=== PATIENT | female | born 1990 | race Caucasian/White ===

== ENCOUNTER 2023-04-18 20:42 | Outpatient (REF) | payer OTHER, SELFPAY ==
[2023-04-24 12:12] LABS: Age Gdln ACOG Testing Note (.); HPV Aptima Negative (Negative); IGP, Aptima HPV, rfx 16/18,45 Note (.)
== END 2023-04-18 20:43 | disposition home or self-care (01) ==
LOC: LAB 20:42
PROVIDERS: Visit Provider Obstetrics & Gynecology
DX: Z12.4 Encounter for screening for malignant neoplasm of cervix (principal)
CPT/HCPCS: 87624; G0145

== ENCOUNTER 2023-06-09 15:00 | Emergency (ER) | payer OTHER, SELFPAY ==
[2023-06-09 15:02] VITALS: BP 150/94; PULSE 102; RESP 14; TEMP 36.8; O2SAT 99; BMI 41.5
--- NOTE | 2023-06-09 15:08 | XR_ITS ---
[facility] [id number] Patient Name: YANETH BROWNLEE MRN: [id number] date: 1990 Sex: F Assigned Patient Location: ER Current Patient Location: Accession/Order Number: [id number] Exam Date: 06/09/2023 15:18 Report Date: 06/09/2023 16:45 At the request of: KALIE LICEA Procedure: XR foot RT min 3V STUDY: XR foot RT min 3V, [id number] HISTORY: pain COMPARISON: None FINDINGS: No acute fracture, dislocation, or suspicious osseous lesion. No significant degenerative changes. Small plantar calcaneal spur and mild Achilles insertional enthesopathy. XR/XR foot RT min 3V IMPRESSION: No acute osseous abnormality. Electronically authenticated by: JOY AMBROSE Date: 06/09/2023 16:45
--- NOTE | 2023-06-09 15:08 | PC.NURSE ---
patient presents to ED because she states around 9am she was walking down stairs and tripped on a kids toy. patient states she heard a pop sensation and now is having pain to bottom of right foot that radiates to top of foot. ice pack applied. denies ankle pain. patient ambulated back to room.
[2023-06-09] MEDS: IBUPROFEN 400 MG TABLET 800 MG PO (15:26)
--- NOTE | 2023-06-09 16:08 | ED.LOWEXI1 ---
HPI - Extremity Injury (Lower) General Chief Complaint: Extremity Injury, Lower Stated Complaint: Lower extremity injury, right foot Time Seen by Provider: 06/09/23 15:12 Source: patient Mode of arrival: walk-in History of Present Illness HPI Narrative: as patient was walking down a set of stairs she stepped on a toy causing her to twist her right ankle and foot. She caught herself before falling to the floor but she felt a pop in the mid right foot and developed pain there. This occurred around 930am this morning. She continues to have pain along the mid foot. She is able to ambulate with most of the pressure on the right heel. Nothing taken for the pain. Related Data Allergies Allergy/AdvReac Type Severity Reaction Status Date / Time No Known Drug Allergies Allergy Verified 06/09/23 15:05 Exam Narrative Exam Narrative: Nurses note and vital signs reviewed and patient is not hypoxic afebrile General: The patient appears well and in no apparent distress. Patient is resting comfortably on cart. GCS = 15. Skin: Warm, dry, no pallor noted. ENT: no facial injury Cardiovascular: normal peripheral perfusion Respiratory: Patient is in no distress, no accessory muscle use, no audible wheezing Musculoskeletal: bony and soft tissue tenderness along the mid right foot. no right foot swelling. Able to wiggle the toes of the right foot. No tenderness right heel. 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 Psychiatric: Cooperative Constitutional Vital Signs, click to edit/add: Last Vital Signs Temp 98.3 F 06/09/23 15:02 Pulse 102 H 06/09/23 15:02 Resp 14 06/09/23 15:02 BP 150/94 H 06/09/23 15:02 Pulse Ox 99 06/09/23 15:02 O2 Del Method Room Air 06/09/23 15:02 Course Vital Signs Vital signs: Vital Signs Temperature 98.3 F 06/09/23 15:02 Pulse Rate 102 H 06/09/23 15:02 Respiratory Rate 14 06/09/23 15:02 Blood Pressure 150/94 H 06/09/23 15:02 Pulse Oximetry 99 06/09/23 15:02 Oxygen Delivery Method Room Air 06/09/23 15:02 Temperature 98.3 F 06/09/23 15:02 Pulse Rate 102 H 06/09/23 15:02 Respiratory Rate 14 06/09/23 15:02 Blood Pressure 150/94 H 06/09/23 15:02 Pulse Oximetry 99 06/09/23 15:02 Oxygen Delivery Method Room Air 06/09/23 15:02 MDM - Extremity Injury (Lower) MDM Narrative Medical decision making narrative: x-rays of the right foot do not reveal acute fracture. Patient informed of result. ED nurse applied an fiorella wrap to the patient's right foot and a post-op shoe to the right foot. She was neurovascularly intact distally after. She was instructed to take tylenol and motrin for pain. Imaging Data xr foot: My impression: nad Discharge Plan Discharge Chief Complaint: Extremity Injury, Lower Clinical Impression: Right foot sprain Patient Disposition: Home, Self-Care Time of Disposition Decision: 16:15 Instructions: Foot Sprain (ED) Stand Alone Forms: Portal Instructions Referrals: Chery Aranda MD [Primary Care Provider] - 1 week
[2023-06-09 16:23] VITALS: BP 130/86; PULSE 95; O2SAT 98
== END 2023-06-09 16:25 | disposition home or self-care (01) ==
PROVIDERS: Emergency Provider Emergency Medicine; PCP Family Medicine
DX: S93.601A Unspecified sprain of right foot, initial encounter (principal); X50.1XXA Overexertion from prolonged static or awkward postures, initial encounter
CPT/HCPCS: 73630; 99282

== ENCOUNTER 2023-07-26 10:38 | Outpatient (OUT) | payer OTHER, SELFPAY ==
--- NOTE | 2023-07-26 10:40 | US_ITS ---
[address] [address] Patient Name: YANETH BROWNLEE MRN: [id number] date: 1990 Sex: F Assigned Patient Location: US Current Patient Location: US Accession/Order Number: [id number] Exam Date: 07/26/2023 10:41 Report Date: 07/26/2023 15:36 At the request of: DINH MESSER Procedure: US OB transvaginal EXAMINATION: US OB transvaginal HISTORY: MISSED MENSES COMPARISON: No relevant comparison available. FINDINGS: GESTATIONAL SAC: Present and normal appearing. YOLK SAC: Absent POLE: Present and normal appearing. CARDIAC: Present. UTERUS: Normal size and appearance. OVARIES: Right: Not seen. Left: Not seen. CERVIX: 3.6 cm in length and closed. CUL-DE-SAC: Normal. OTHER: None. AGE BY LMP: 10 weeks 1 day VALERIA BY LMP: 02/20/2024 AGE BY US CRL: 9 weeks 4 days VALERIA BY US CRL: 02/24/2024 US/US OB transvaginal IMPRESSION: 1. Single live intrauterine . Electronically authenticated by: FOUZIA CALERO Date: 07/26/2023 15:36
== END 2023-07-26 10:39 | disposition home or self-care (01) ==
LOC: US 10:38
PROVIDERS: PCP Family Medicine; Visit Provider Obstetrics & Gynecology
DX: Z34.91 Encounter for supervision of normal pregnancy, unspecified, first trimester (principal); N92.6 Irregular menstruation, unspecified
CPT/HCPCS: 76817

== ENCOUNTER 2023-07-26 16:30 | Outpatient (OUT) | payer OTHER, SELFPAY ==
[2023-07-26 17:10] LABS: Basophils Percent Auto 0.5 % (0.2-2.0); Eosinophils Absolute Auto 0.1 10^3/uL (0.0-0.7); Eosinophils Percent Auto 1.8 % (0.9-7.0); Hematocrit 34.8 % (36.0-48.0); Hemoglobin 11.3 g/dL (12.0-16.0); Immature Granulocytes Abs Auto 0.01 10^3/uL (0.00-0.03); Immature Granulocytes Pct Auto 0.1 % (0.0-0.5); Lymphocytes Percent Auto 25.4 % (20.5-60.0); Mean Corpuscular HGB Conc 32.5 g/dL (29.9-35.2); Mean Corpuscular Hemoglobin 27.1 pg (26.7-34.0); Mean Corpuscular Volume 83.5 fL (81.0-99.0); Mean Platelet Volume 10.5 fL (9.5-13.5); Monocytes Absolute Auto 0.5 10^3/uL (0.3-0.8); Neutrophils Absolute Auto 5.1 10^3/uL (1.4-6.5); Neutrophils Percent Auto 66.2 % (43.0-75.0); Platelet Count 292 10^3/uL (150-450); Red Blood Count 4.17 10^6/uL (4.20-5.40); White Blood Count 7.8 10^3/uL (4.0-11.0)
[2023-07-26 17:19] LABS: Estimated Average Glucose 97 mg/dL
[2023-07-26 17:46] LABS: Thyroid Stimulating Hormone 1.987 uIU/mL (0.358-3.740)
[2023-07-28 07:10] LABS: Rapid Plasma Reagin, Quant Non Reactive titer (NonRea<1:1)
[2023-07-28 08:11] LABS: HBsAg Screen Negative (Negative)
[2023-07-28 09:12] LABS: Rubella Antibodies, IgG 5.26 index (Immune >0.99)
[2023-07-28 11:13] LABS: HCV Ab Non Reactive (Non Reactive)
[2023-07-29 16:06] LABS: HIV Antigen NON-REACTIVE (NONREACTIVE)
== END 2023-07-26 16:31 | disposition home or self-care (01) ==
LOC: LAB 16:30
PROVIDERS: PCP Family Medicine; Visit Provider Obstetrics & Gynecology
DX: Z34.81 Encounter for supervision of other normal pregnancy, first trimester (principal); N92.6 Irregular menstruation, unspecified
CPT/HCPCS: 36415; 76817; 83036; 84443; 85025; 86592; 86762; 86803; 86850; 86900; 86901; 87086; 87340; 87389

== ENCOUNTER 2023-10-03 10:03 | Outpatient (OUT) | payer OTHER, SELFPAY ==
--- NOTE | 2023-10-03 10:06 | US_ITS ---
[address] [address] Patient Name: YANETH BROWNLEE MRN: [id number] date: 1990 Sex: F Assigned Patient Location: US Current Patient Location: US Accession/Order Number: [id number] Exam Date: 10/03/2023 10:07 Report Date: 10/03/2023 11:04 At the request of: DINH MESSER Procedure: US OB anatomy EXAMINATION: US OB anatomy, US OB cervical length HISTORY: Screening,, for anatomic survey COMPARISON: 07/26/2023 TECHNIQUE: Transabdominal sonographic examination was performed for obstetrical and evaluation. FINDINGS: Number: 1 Heart Rate: 162.7 bpm H.B. /min Amniotic Fluid Volume: Subjectively normal position: Cephalic presentation, longitudinal lie Placental Location: POSTERIOR , grade 0. The placenta completely covers the internal cervical os Cervix Length: 5.7 cm , closed Normal anatomy: Lateral ventricles, cerebellum, posterior fossa, four-chamber heart, RVOT, LVOT, diaphragm, stomach, kidneys, umbilical arteries, three-vessel cord, spine, extremities Suboptimal visualization: Orbits Nonvisualization: Nose, lips, abdominal cord insertion, bladder BIOMETRY: BPD: 4.0 cm 18 weeks 0 days <3% HC: 15.5 cm 18 weeks 3 days, <3% AC: 12.5 cm 18 weeks 1 days, 3.6% FL: 2.6 cm 17 weeks 6 days ,<3% EFW:220.2 grams; 8 oz, <3% FL/AC: 20.6 FL/BPD: 64.9 HC/AC: 1.2 GESTATIONAL AGE: Age by EDC: 20 weeks 0 days Age by current US: 18 weeks 1 days VALERIA by current US: 11/06/2024 VALERIA by EDC: 02/20/2024 US/US OB anatomy IMPRESSION: Intrauterine growth retardation with estimated weight less than the 3rd percentile Suboptimal and nonvisualization as detailed above Complete placenta previa *Reference: [employer] Practice Guideline for the performance of Obstetric Ultrasound Examinations, May 26, 2007. Electronically authenticated by: BRANDI ANN Date: 10/03/2023 11:04
--- NOTE | 2023-10-03 10:07 | US_ITS ---
[address] [address] Patient Name: YANETH BROWNLEE MRN: [id number] date: 1990 Sex: F Assigned Patient Location: US Current Patient Location: US Accession/Order Number: [id number] Exam Date: 10/03/2023 10:07 Report Date: 10/03/2023 11:04 At the request of: DINH MESSER Procedure: US OB cervical length EXAMINATION: US OB anatomy, US OB cervical length HISTORY: Screening,, for anatomic survey COMPARISON: 07/26/2023 TECHNIQUE: Transabdominal sonographic examination was performed for obstetrical and evaluation. FINDINGS: Number: 1 Heart Rate: 162.7 bpm H.B. /min Amniotic Fluid Volume: Subjectively normal position: Cephalic presentation, longitudinal lie Placental Location: POSTERIOR , grade 0. The placenta completely covers the internal cervical os Cervix Length: 5.7 cm , closed Normal anatomy: Lateral ventricles, cerebellum, posterior fossa, four-chamber heart, RVOT, LVOT, diaphragm, stomach, kidneys, umbilical arteries, three-vessel cord, spine, extremities Suboptimal visualization: Orbits Nonvisualization: Nose, lips, abdominal cord insertion, bladder BIOMETRY: BPD: 4.0 cm 18 weeks 0 days <3% HC: 15.5 cm 18 weeks 3 days, <3% AC: 12.5 cm 18 weeks 1 days, 3.6% FL: 2.6 cm 17 weeks 6 days ,<3% EFW:220.2 grams; 8 oz, <3% FL/AC: 20.6 FL/BPD: 64.9 HC/AC: 1.2 GESTATIONAL AGE: Age by EDC: 20 weeks 0 days Age by current US: 18 weeks 1 days VALERIA by current US: 11/06/2024 VALERIA by EDC: 02/20/2024 US/US OB cervical length IMPRESSION: Intrauterine growth retardation with estimated weight less than the 3rd percentile Suboptimal and nonvisualization as detailed above Complete placenta previa *Reference: [employer] Practice Guideline for the performance of Obstetric Ultrasound Examinations, May 26, 2007. Electronically authenticated by: BRANDI ANN Date: 10/03/2023 11:04
[2023-10-05 01:06] LABS: AFP Value 101.7 ng/mL (.); Gestat. Age Based On As provided (.); Insulin Dep Diabetes No (.); Maternal Age At EDD 33.8 yr (.); OSBR Risk 1 IN 370 (.); Results Report (.)
== END 2023-10-03 10:04 | disposition home or self-care (01) ==
LOC: US 10:03
PROVIDERS: PCP Family Medicine; Visit Provider Obstetrics & Gynecology
DX: Z36.89 Encounter for other specified antenatal screening (principal); O36.5920 Maternal care for other known or suspected poor fetal growth, second trimester, not applicable or unspecified; Z3A.18 18 weeks gestation of pregnancy; O44.02 Complete placenta previa NOS or without hemorrhage, second trimester
CPT/HCPCS: 36415; 76805; 76817; 82105

== ENCOUNTER 2023-11-19 06:53 | Outpatient (OUT) | payer OTHER, SELFPAY ==
--- OUTSIDE RECORDS SUMMARY | 2023-11-19 06:56 | XMS_ITS | CCD ---
Author Organization [facility] Care Team Providers Care Position Classification Specialist Name Role Phone WEST, DR BRANDI Quinonez Consulting Unavailable AYDE, DR TAO Admitting Unavailable AYDE, DR TAO Attending Unavailable DOE, MARSHALL Primary Care Unavailable AYDE, DR TAO Consulting Unavailable AYDE, DR TAO Consulting Unavailable YADE, DR TAO Attending Unavailable AYDE, DR TAO Admitting Unavailable REQUEST, DR NONE LISTED Primary Care Unavaila ble AYDE, DR TAO Consulting Unavailable AYDE, DR TAO Admitting Unavailable AYDE, DR TAO Attending Unavailable REQUEST, DR NONE LISTED Primary Care Unavaila ble ZIEBER, DR FOUZIA Schilling Consulting Unavailable AYDE, DR TAO Consulting Unavailable AYDE, DR TAO Attending Unavailable AYDE, DR TAO Admitting Unavailable REQUEST, DR NONE LISTED Primary Care Unavaila ble ZIEBER, DR FOUZIA Schilling Consulting Unavailable AYDE, DR TAO Consulting Unavailable AYDE, DR TAO Attending Unavailable AYDE, DR TAO Admitting Unavailable REQUEST, DR EMERSON LISTED Primary Care Unavaila ble AYDE, DR TAO Consulting Unavailable AYDE, DR TAO Attending Unavailable AYDE, DR TAO Admitting Unavailable REQUEST, DR NONE LISTED Primary Care Unavaila ble MAY, YANET DUNBAR Consulting Unava ilable AYDE, DR TAO Procedure Practitioner Unavailab le AYDE, DR TAO Consulting Unavailable AYDE, DR TAO Attending Unavailable AYDE, DR TAO Admitting Unavailable REQUEST, DR NONE LISTED Primary Care Unavaila ble ZIEBER, DR FOUZIA Schilling Consulting Unavailable AYDE, DR TAO Consulting Unavailable AYDE, DR TAO Admitting Unavailable AYDE, DR TAO Attending Unavailable REQUEST, DR NONE LISTED Primary Care Unavaila ble AYDE, DR TAO Consulting Unavailable AYDE, DR TAO Attending Unavailable REQUEST, DR NONE LISTED Primary Care Unavaila ble AYDE, DR TAO Admitting Unavailable ZIEBER, DR FOUZIA Schilling Consulting Unavailable AYDE, DR TAO Consulting Unavailable AYDE, DR TAO Attending Unavailable AYDE, DR TAO Admitting Unavailable REQUEST, DR NONE LISTED Primary Care Unavaila ble AYDE, DR TAO Consulting Unavailable AYDE, DR TAO Attending Unavailable REQUEST, NONE LISTED Primary Care Unavaila ble AYDE, DR TAO Admitting Unavailable REQUEST, DR NONE LISTED Primary Care Unavaila ble WEST, DR BRANDI Quinonez Consulting Unavailable AYDE, DR TAO Attending Unavailable AYDE, DR TAO Admitting Unavailable AYDE, DR TAO Consulting Unavailable AYDE, DR TAO Consulting Unavailable JENNIFER, CT Admitting Unavailable JENNIFER, CT Attending Unavailable REQUEST, DR NONE LISTED Primary Care Unavaila ble ZIEBER, DR FOUZIA Schilling Consulting Unavailable KARASIK, DR DODSON Admitting Unavailable KARASIK, DR DODSON Consulting Unavailable KARASIK, DR DODSON Attending Unavailable REQUEST, DR NONE LISTED Primary Care Unavaila ble WEST, DR BRANDI Quinonez Consulting Unavailable AYDE, DR TAO Consulting Unavailable AYDE, DR TAO Admitting Unavailable AYDE, DR TAO Attending Unavailable REQUEST, DR NONE LISTED Primary Care Unavaila ble AYDE, DR TAO Consulting Unavailable REQUEST, NONE LISTED Primary Care Unavaila ble AYDE, DR TAO Admitting Unavailable AYDE, DR TAO Attending Unavailable AYDE, DR TAO Consulting Unavailable AYDE, DR TAO Attending Unavailable AYDE, DR TAO Admitting Unavailable REQUEST, DR NONE LISTED Primary Care Unavaila ble AYDE, DR TAO Consulting Unavailable AYDE, DR TAO Attending Unavailable AYDE, DR TAO Admitting Unavailable REQUEST, NONE LISTED Primary Care Unavaila ble ZIEBER, DR FOUZIA Schilling Consulting Unavailable AYDE, DR TAO Attending Unavailable REQUEST, NONE LISTED Primary Care Unavaila ble AYDE, DR TAO Admitting Unavailable Chery Aranda Unavailable Sea ENGLISH COMPOSITION TEACHER-INTERPRETER DEAF, Pola Mota Primary Care Provider DINH MARROQUIN Attending Unavailable GENEFRIEDA JOYNER Attending Unavailable AYDE, DINH Attending Unavailable AYDE, DINH Attending Unavailable PERNI, COLIN C Referring Unavailable DINH MARROQUIN Primary Care Unavailable Medications Current Medications Medication Drug Class(es) Dates Sig (Normalized) Sig (Original) ferrous sulfate 325 mg oral tablet (1 source) take 1 tablet by mouth once daily at breakfast ferrous sulfate 325 (65 FE) mg tablet Take 325 mg by mouth daily with breakfast. 0 Active magnesium oxide 400 mg oral tablet (1 source) take 1 tablet by mouth twice daily magnesium oxide (MAG-OX) 400 mg tablet Take 400 mg by mouth 2 (two) times a day. 0 Active montelukast 10 mg oral tablet (4 sources) Leukotriene Receptor Antagonist take 1 tablet by mouth every twenty-four hours Singulair 10 MG 1 tablet Orally Once a day for 30 days Active ondansetron 4 mg disintegrating oral tablet (1 source) Serotonin-3 Receptor Antagonist take 1 tablet by mouth every eight hours as needed for nausea and vomiting ondansetron ODT (ZOFRAN-ODT) 4 mg disintegrating tablet Dissolve 4 mg on tongue every 8 (eight) hours as needed for nausea or vomiting. 0 Active phentermine hydrochloride 37.5 mg oral capsule (3 sources) Sympathomimetic Amine Anorectic Start: 06-14-2023 take 1 capsule by mouth every twenty-four hours Phentermine HCl 37.5 MG 1 capsule Orally Once a day for 30 days May, Active Start: 05-16-2023 take 1 capsule by [facility] every twenty-four hours Phentermine HCl 37.5 MG 1 capsule Orally Once a day for 30 days Apr, Active Start: 04-15-2023 take 1 capsule by [facility] every twenty-four hours Phentermine HCl 37.5 MG 1 capsule Orally Once a day for 30 days Mar, Active [id number] ac id 29 mg iron- 1 mg tablet,chewable (1 source) vit37-i hebert-folic acid 29 mg iron- 1 mg tablet,chewable Chew 1 tablet and swallow daily. 0 Active Problems Active Problems Problem Classification Problem Date Documented Da te Episodic/Chronic Deficiency and other anemia (1 source) Anemia, unspecified; Translations: [ANEMIA UNSPECIFIED] Onset: 08-03-2022 Episodic Menstrual disorders (4 sources) Irregular menstruation, unspecified; Translations: [IRREGULAR MENSTRUATION UNSPECIFIED] Onset: 01-12-2022 Chronic Other complications of ; puerperium affecting management of mother (1 source) Obesity complicating childbirth; Translations: [OBESITY COMPLICATING CHILDBIRTH] Onset: 08-03-2022 Chronic Other complications of ; puerperium affecting management of mother (1 source) Anemia complicating childbirth; Translations: [ANEMIA COMPLICATING CHILDBIRTH] Onset: 08-03-2022 Chronic Other complications of (1 source) Maternal obesity complicating , childbirth and the puerperium, antepartum; Translations: [Obesity complicating , second trimester] Onset: 09-15-2019 09-15-2019 Chronic Other complications of (5 sources) Maternal care for excessive growth, third trimester, not applicable or unspecified; Translations: [MAT CARE EXCSS FTL GRTH 3RD TRI UNS] Onset: 06-13-2022 Episodic Other complications of (4 sources) Bariatric surgery status complicating , third trimester; Translations: [BARIATRIC SURG STS COMP PG 3RD TRI] Onset: 07-05-2022 Episodic Other complications of (2 sources) Supervision of other high risk pregnancies, second trimester; Translations: [Supervision of other high risk pregnancies, second trimester] Onset: 10-17-2023 Episodic Other nutritional; endocrine; and metabolic disorders (1 source) Obesity, unspecified; Translations: [OBESITY UNSPECIFIED] Onset: 08-03-2022 Chronic Other nutritional; endocrine; and metabolic disorders (4 sources) Severe obesity; Translations: [Morbid (severe) obesity due to excess calories] Chronic Other nutritional; endocrine; and metabolic disorders (4 sources) Body mass index 40+ - severely obese; Translations: [Body mass index (BMI) 40.0-44.9, adult] Chronic Other nutritional; endocrine; and metabolic disorders (2 sources) Morbid (severe) obesity due to excess calories Chronic Other nutritional; endocrine; and metabolic disorders (2 sources) Body mass index (BMI) 40.0-44.9, adult Chronic Other nutritional; endocrine; and metabolic disorders (2 sources) Body mass index 30+ - obesity; Translations: [Body mass index (BMI) 39.0-39.9, adult] Chronic Other nutritional; endocrine; and metabolic disorders (2 sources) Obesity caused by energy imbalance; Translations: [Other obesity due to excess calories] Chronic Other nutritional; endocrine; and metabolic disorders (1 source) Other obesity due to excess calories Chronic Other nutritional; endocrine; and metabolic disorders (1 source) Body mass index (BMI) 39.0-39.9, adult Chronic Other and delivery including normal (11 sources) Encounter for routine follow-up; Translations: [Single live ] Onset: 01-03-2022 Episodic Other screening for suspected conditions (not mental disorders or infectious disease) (20 sources) Encounter for other screening follow-up; Translations: [Encounter for screening for diabetes mellitus] Onset: 01-12-2022 Episodic Other upper respiratory disease (4 sources) Allergic rhinitis due to animal hair and dander; Translations: [Allergic rhinitis due to animal (cat) (dog) hair and dander] Chronic Other upper respiratory disease (1 source) Allergic rhinitis due to animal (cat) (dog) hair and dander Chronic Polyhydramnios and other problems of amniotic cavity (5 sources) Oligohydramnios, third trimester, not applicable or unspecified; Translations: [OLIGOHYDRAMNIOS THIRD TRI NA/UNS] Onset: 07-12-2022 Episodic Residual codes; unclassified (1 source) 39 weeks gestation of ; Translations: [39 WEEKS GESTATION OF ] Onset: 08-03-2022 Episodic Residual codes; unclassified (1 source) Acquired absence of other specified parts of digestive tract; Translations: [ACQ ABSENCE OTH PART DIGESTV TRACT] Onset: 08-03-2022 Episodic Residual codes; unclassified (1 source) 36 weeks gestation of ; Translations: [36 WEEKS GESTATION OF ] Onset: 07-14-2022 Episodic Residual codes; unclassified (1 source) 35 weeks gestation of ; Translations: [35 WEEKS GESTATION OF ] Onset: 07-06-2022 Episodic Residual codes; unclassified (1 source) 32 weeks gestation of ; Translations: [32 WEEKS GESTATION OF ] Onset: 06-13-2022 Episodic Residual codes; unclassified (2 sources) Family history of other specified conditions; Translations: [Family history of other specified conditions] Onset: 10-17-2023 Episodic Unclassified (1 source) CONTACT W/AND (SUSP) EXPOS COVID-19; Translations: [CONTACT W/AND (SUSP) EXPOS COVID-19] Onset: 08-03-2022 Past or Other Problems Problem Classification Problem Date Documented Date Episodic/Chronic Diabetes mellitus without complication (8 sources) Other abnormal glucose; Translations: [Hyperglycemia, unspecified] Onset: 02-14-2022 Episodic Hemorrhage during ; abruptio placenta; placenta previa (2 sources) Low lying placenta NOS or without hemorrhage, unspecified trimester; Translations: [Low lying placenta] Onset: 09-15-2019 09-15-2019 Episodic Immunizations and screening for infectious disease (3 sources) Encounter for screening for human papillomavirus (HPV); Translations: [Encounter for screening for infections with a predominantly sexual mode of transmission] Onset: 01-18-2022 Episodic Other complications of (4 sources) Abnormal ultrasonic finding on screening of mother; Translations: [ABNORM US SCREEN MOTHER] Onset: 04-17-2022 Episodic Other complications of (1 source) Recurrent miscarriage; Translations: [ care for patient with recurrent loss, unspecified trimester] Onset: 09-15-2019 09-15-2019 Episodic Other female genital disorders (1 source) Other specified noninflammatory disorders of vagina; Translations: [OTH SPEC NONINFLAMMATORY D/O VAGINA] Onset: 04-17-2022 Episodic Other nervous system disorders (1 source) H/O: migraine; Translations: [Personal history of other diseases of the nervous system and sense organs] Onset: 09-15-2019 09-15-2019 Episodic Residual codes; unclassified (1 source) 8 weeks gestation of ; Translations: [8 WEEKS GESTATION OF ] Onset: 01-03-2022 Episodic Results Test Name Value Interpretation Reference Range Facility Tatum Roberson 10-26-2023 Tatum tp. B1 <1:10 Normal <1:10 [facility] Comment on above: Performed By: #### C MVG, LUPPRO, AT3A, PROCAC, PROSAC, CMVM, CMIS, TOXOG, TOXOM, HOCYS #### [employer] [facility] [place] [address] Insurance And Benefits Clerk: Tanvir Macias MD #### APTMUT, AF5MUT, AMTHFR, ACOXA9, APARVP, ACOXAB #### [address] [phone] Insurance And Benefits Clerk: MD Tatum Santoyo B2 1:20 Normal <1:10 [facility] Comment on above: Performed By: #### C MVG, LUPPRO, AT3A, PROCAC, PROSAC, CMVM, CMIS, TOXOG, TOXOM, HOCYS #### [facility] [address] [place] [id number] Insurance And Benefits Clerk: Tanvir Macias MD #### APTMUT, AF5MUT, AMTHFR, ACOXA9, APARVP, ACOXAB #### [facility] [address] [place], [place] [phone] Insurance And Benefits Clerk: MD Tatum Santoyo B3 1:10 Normal <1:10 [facility] Comment on above: Performed By: #### C MVG, LUPPRO, AT3A, PROCAC, PROSAC, CMVM, CMIS, TOXOG, TOXOM, HOCYS #### [facility] [address] [place] [id number] Insurance And Benefits Clerk: Tanvir Macias MD #### APTMUT, AF5MUT, AMTHFR, ACOXA9, APARVP, ACOXAB #### [facility] [address] [place], [place] [phone] Insurance And Benefits Clerk: MD Tatum Santoyo B4 1:320 Abnormal <1:10 [facility] Comment on above: Performed By: #### C MVG, LUPPRO, AT3A, PROCAC, PROSAC, CMVM, CMIS, TOXOG, TOXOM, HOCYS #### [facility] [address] [place] [id number] Insurance And Benefits Clerk: Tanvir Macias MD #### APTMUT, AF5MUT, AMTHFR, ACOXA9, APARVP, ACOXAB #### [facility] [address] [place], [place] [phone] Insurance And Benefits Clerk: MD Tatum Santoyo. B5 <1:10 Normal <1:10 [facility] Comment on above: Performed By: #### C MVG, LUPPRO, AT3A, PROCAC, PROSAC, CMVM, CMIS, TOXOG, TOXOM, HOCYS #### [address] [phone] Insurance And Benefits Clerk: Tanvir Macias MD #### APTMUT, AF5MUT, AMTHFR, ACOXA9, APARVP, ACOXAB #### [address] [phone] Insurance And Benefits Clerk: MD Tatum Santoyo. B6 <1:10 Normal <1:10 [facility] Comment on above: Result Comment: (NOT E) INTERPRETIVE INFORMATION: Coxsackie B Virus Single positive antibody titers of greater than or equal to 1:80 may indicate past or current infection. Sero- conversion or an increase in titers between acute and convalescent sera of at least fourfold is considered strong evidence of current or recent infection. Performed By: [facility] [address] [place] [id number] Executive Sales Assistant: Nadeem Mcarthur MD, PhD CLIA Number: [id number] Performed By: #### C MVG, LUPPRO, AT3A, PROCAC, PROSAC, CMVM, CMIS, TOXOG, TOXOM, HOCYS #### [address] [phone] Insurance And Benefits Clerk: Tanvir Macias MD #### APTMUT, AF5MUT, AMTHFR, ACOXA9, APARVP, ACOXAB #### [facility] [address] [place] [phone] Insurance And Benefits Clerk: Enrique Arthur MD Factor V Mutationon 10-22-19 24 F 5 SPECIMEN Whole Blood Normal [facility] Comment on above: Performed By: #### C MVG, LUPPRO, AT3A, PROCAC, PROSAC, CMVM, CMIS, TOXOG, TOXOM, HOCYS #### [facility] [address] [place] [address] Insurance And Benefits Clerk: Tanvir Macias MD #### APTMUT, AF5MUT, AMTHFR, ACOXA9, APARVP, ACOXAB #### [facility] [address] [place] [address] Insurance And Benefits Clerk: Enrique Arthur MD FACTOR 5 MUTATION Negative Normal [facility] Comment on above: Result Comment: (NOT E) Indication for testing: Assess genetic risk for thrombosis. NEGATIVE: The factor V Leiden variant, c.1601G>A; p.Ihl259Kkz, was not detected. This does not exclude a genetic cause for thrombophilia. If this individual has had a previous venous thromboembolism, this negative result is unlikely to significantly reduce the risk for recurrence; thus, future clinical management to reduce recurrence should not be altered. This result has been reviewed and approved by Ari Quintana, Ph.D. BACKGROUND INFORMATION: Factor V Leiden (F5) R506Q Mutation CHARACTERISTICS: Venous thromboembolism (VTE) is multifactorial caused by a combination of genetic and environmental factors. The Factor V Leiden (FVL) variant is the most common cause of inherited VTEs, accounting for over 90 percent of activated protein C (APC) resistance. Because the FVL variant eliminates the APC cleavage site, factor V is inactivated slower, thus persisting longer in blood circulation, leading to more thrombin production. Other genetic risk factors for VTE include, male sex and variants in antithrombin, protein C, protein S, or factor XIII. Non-genetic risk factors include, age, smoking, prolonged immobilization, malignant neoplasms, surgery, , oral contraceptives, estrogen replacement therapy, tamoxifen and raloxifene therapy. INCIDENCE OF FACTOR V LEIDEN VARIANT: Approximately 5 percent of Caucasians, 2 percent of Hispanics, 1 percent of Americans and 0.5 percent of Asians are heterozygous; homozygosity occurs in 1 in 1500 Caucasians. INHERITANCE: Semi-dominant; both heterozygotes and homozygotes are at increased risk for VTE. PENETRANCE: Lifetime risk of VTE is 10 percent for heterozygotes and 80 percent of homozygotes. 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 Legacy nomenclature: R506Q (1691G>A) CLINICAL SENSITIVITY: 20-50 percent of individuals with an isolated VTE have the FVL variant. METHODOLOGY: Polymerase chain reaction and fluorescence monitoring. ANALYTICAL SENSITIVITY AND SPECIFICITY: 99 percent. LIMITATIONS: Diagnostic errors can occur due to rare sequence variations. F5 gene mutations, other than p.Cxa873Kya, will not be detected. This test was developed and its performance characteristics determined by [facility]. It has not been cleared or approved by the [place] Food and Drug Administration. This test was performed in a CLIA certified laboratory and is intended for clinical purposes. Counseling and informed consent are recommended for genetic testing. Consent forms are available online. Performed By: [facility] [address] [place] [address] Executive Sales Assistant: Nadeem Mcarthur MD, PhD CLIA Number: [id number] Performed By: #### C MVG, LUPPRO, AT3A, PROCAC, PROSAC, CMVM, CMIS, TOXOG, TOXOM, HOCYS #### [place] [address] Insurance And Benefits Clerk: Tanvir Macias MD #### APTMUT, AF5MUT, AMTHFR, ACOXA9, APARVP, ACOXAB #### [place] [phone] Insurance And Benefits Clerk: Enrique Arthur MD Coxsackie A9 Titeron 024 Coxsackie A9 Titer <1:8 Normal <1:8 [facility] Comment on above: Result Comment: (NOT E) INTERPRETIVE INFORMATION: Coxsackie A Serotype 9 Titer Single positive antibody titers of greater than 1:32 may indicate past or current infection. Seroconversion or an increase in titers between acute and convalescent sera of at least fourfold is considered strong evidence of current or recent infection. Performed By: [facility] [address] [place] [id number] Executive Sales Assistant: Nadeem Mcarthur MD, PhD CLIA Number: [id number] Performed By: #### C MVG, LUPPRO, AT3A, PROCAC, PROSAC, CMVM, CMIS, TOXOG, TOXOM, HOCYS #### [address] [phone] Insurance And Benefits Clerk: Tanvir Macias MD #### APTMUT, AF5MUT, AMTHFR, ACOXA9, APARVP, ACOXAB #### [facility] [address] [place] [address] Insurance And Benefits Clerk: Enrique Arthur MD MTHFR Gene Mutationon 2023 MTHFR 1286 A>C Mut Negative Normal [facility] Comment on above: Performed By: #### C MVG, LUPPRO, AT3A, PROCAC, PROSAC, CMVM, CMIS, TOXOG, TOXOM, HOCYS #### [facility] [address] [place] [phone] Insurance And Benefits Clerk: Tanvir Macias MD #### APTMUT, AF5MUT, AMTHFR, ACOXA9, APARVP, ACOXAB #### [facility] [address] [place] [address] Insurance And Benefits Clerk: Enrique Arthur MD MTHFR 655C>T Mut Heterozygous Normal [facility] Comment on above: Performed By: #### C MVG, LUPPRO, AT3A, PROCAC, PROSAC, CMVM, CMIS, TOXOG, TOXOM, HOCYS #### [address] [phone] Insurance And Benefits Clerk: Tanvir Macias MD #### APTMUT, AF5MUT, AMTHFR, ACOXA9, APARVP, ACOXAB #### [facility] [address] [place] [address] Insurance And Benefits Clerk: Enrique Arthur MD MTHFR Interpretation See Note Normal [facility] Comment on above: Result Comment: (NOT E) Indication for testing: Determine genetic contribution to hyperhomocysteinemia. Heterozygous MTHFR c.665C>T: One copy of the MTHFR variant c.665C>T (previously designated C677T) was detected; the c.1286A>C (previously designated A5384X) variant was not identified. The common variant is present in 12 percent of Americans, 35 percent of Caucasians, and 50 percent of individuals. Although MTHFR enzyme activity may be mildly reduced, this genotype is not predicted to have clinical significance. This result has been reviewed and approved by Ari Quintana, Ph.D. Background Information: Methylenetetrahydrofolate Reductase (MTHFR) 2 Variants Characteristics: Variants in the MTHFR gene may reduce enzyme activity contributing to hyperhomocysteinemia. Although hyperhomocysteinemia was previously reported to be a risk factor for many conditions, especially venous thrombosis and cardiovascular disease, recent meta-analysis casts doubt on whether lifelong moderate homocysteine elevation has an effect on cardiovascular disease. The [employer] Practice Guidelines indicate that individuals with elevated homocysteine and two copies of the c.665C>T variant have an odds ratio of 1.27 for venous thromboembolism. Thus, they recommend MTHFR genotyping not be ordered as part of a routine evaluation for recurrent loss or thromobophilia due to questionable clinical significance. Incidence: The allele frequency of the c.665C>T variant is 0.35 in Caucasians, 0.5 in Hispanics, and 0.12 in Americans. Inheritance: Autosomal recessive; two copies of the c.665C>T variant may be a contributing factor to hyperhomocysteinemia. Variants Tested: c.665C>T(p.Utf705Dfk) and c.1286A>C(p.Mtj324Sfe). (legacy names C677T and S2185B, respectively). Clinical Sensitivity: Undefined; hyperhomocysteinemia is caused by genetic, physiologic and environmental factors. MTHFR variants are only one contributing factor. Methodology: Polymerase chain reaction (PCR) and fluorescence monitoring. Analytical Sensitivity and Specificity: 99 percent. Limitations: Only two MTHFR gene variants (c.665C>T and c.1286A>C) are tested. Diagnostic errors can occur due to rare sequence variations. This test was developed and its performance characteristics determined by [facility]. It has not been cleared or approved by the [place] Food and Drug Administration. This test was performed in a CLIA certified laboratory and is intended for clinical purposes. Counseling and informed consent are recommended for genetic testing. Consent forms are available online. Performed By: [facility] [address] [place] [id number] Executive Sales Assistant: Nadeem Mcarthur MD, PhD CLIA Number: [id number] Performed By: #### C MVG, LUPPRO, AT3A, PROCAC, PROSAC, CMVM, CMIS, TOXOG, TOXOM, HOCYS #### [facility] [place], [place] [phone] Insurance And Benefits Clerk: Tanvir Macias MD #### APTMUT, AF5MUT, AMTHFR, ACOXA9, APARVP, ACOXAB #### [facility] [address] [place], [place] [phone] Insurance And Benefits Clerk: Enrique Arthur MD MTHFR SPECIMEN Whole Blood Normal [facility] Comment on above: Performed By: #### C MVG, LUPPRO, AT3A, PROCAC, PROSAC, CMVM, CMIS, TOXOG, TOXOM, HOCYS #### [facility] [address] [place] [phone] Insurance And Benefits Clerk: Tanvir Macias MD #### APTMUT, AF5MUT, AMTHFR, ACOXA9, APARVP, ACOXAB #### [facility] [address] [place] [address] Insurance And Benefits Clerk: Enrique Arthur MD PT Mutation 10-21-19 24 PT [id number] VARIANT Negative Normal [facility] Comment on above: Result Comment: (NOT E) Indication for testing: Assess genetic risk for thrombosis. NEGATIVE: The Factor II, prothrombin M58119D mutation, was not detected. Other causes of elevated prothrombin levels and hereditary forms of venous thrombosis have not been excluded. Recommendations: If clinically indicated, testing for other inherited or acquired thrombophilic disorders is recommended including DNA testing for the factor V Leiden mutation, measurement of total plasma homocysteine concentration, serological assays for anticardiolipin antibodies, multiple phospholipid-dependent coagulation assays for lupus inhibitor, protein C activity, protein S activity or free protein S antigen, and antithrombin activity. This result has been reviewed and approved by Ari Quintana, Ph.D. 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 The expression of Factor II thrombophilia is impacted by coexisting genetic thrombophilic disorders, acquired thrombophilic disorders (eg, malignancy, hyperhomocysteinemia, high factor VIII levels), and circumstances including: , oral contraceptive use, hormone replacement therapy, selective estrogen receptor modulators, travel, central venous catheters, surgery, and organ transplantation. INCIDENCE: Approximately 2 percent of Caucasians and 0.3 percent of Americans are heterozygous; homozygosity occurs in 1 in 10,000 individuals. INHERITANCE: Incomplete autosomal dominant. PENETRANCE: The risk of thrombosis is increased 2-4 fold for heterozygotes and further increased for homozygotes. 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 PATHOGENIC VARIANT TESTED: F2 c.*97G>A (H53109L). CLINICAL SENSITIVITY FOR VENOUS THROMBOSIS: Approximately 10 percent. METHODOLOGY: Polymerase chain reaction and fluorescence monitoring. ANALYTICAL SENSITIVITY AND SPECIFICITY: 99 percent. LIMITATIONS: Diagnostic errors can occur due to rare sequence variations. F2 gene variants, other than c.*97G>A (E33331F), will not be detected. This test was developed and its performance characteristics determined by [facility]. It has not been cleared or approved by the [place] Food and Drug Administration. This test was performed in a CLIA certified laboratory and is intended for clinical purposes. Counseling and informed consent are recommended for genetic testing. Consent forms are available online. Performed By: [facility] [address] [place] [id number] Executive Sales Assistant: Nadeem Mcarthur MD, PhD CLIA Number: [id number] Performed By: #### C MVG, LUPPRO, AT3A, PROCAC, PROSAC, CMVM, CMIS, TOXOG, TOXOM, HOCYS #### [place] [address] Insurance And Benefits Clerk: Tanvir Macias MD #### APTMUT, AF5MUT, AMTHFR, ACOXA9, APARVP, ACOXAB #### [facility] [address] [place] [address] Insurance And Benefits Clerk: Enrique Arthur MD PT PCR SPECIMEN Whole Blood Normal [facility] Comment on above: Performed By: #### C MVG, LUPPRO, AT3A, PROCAC, PROSAC, CMVM, CMIS, TOXOG, TOXOM, HOCYS #### [facility] [place], [place] [id number] Insurance And Benefits Clerk: Tanvir Macias MD #### APTMUT, AF5MUT, AMTHFR, ACOXA9, APARVP, ACOXAB #### [facility] [address] [place] [address] Insurance And Benefits Clerk: Enrique Arthur MD Parvovirus B19 Panelon 10-21 Parvovirus IgG B19 1.80 IV High <=0.90 [facility] Comment on above: Result Comment: (NOT E) INTERPRETIVE INFORMATION: Parvovirus B19 Antibody, IgG 0.90 IV or less .......... Negative - No significant level of detectable Parvovirus B19 IgG antibody. 0.91 - 1.09 IV ........... Equivocal - Repeat testing in 7-21 days may be helpful. 1.10 IV or greater ....... Positive - IgG antibody to Parvovirus B19 detected which may indicate a current or past infection. The best evidence for current infection is a significant change on two appropriately timed specimens, where both tests are done in the same laboratory at the same time. Performed By: #### C MVG, LUPPRO, AT3A, PROCAC, PROSAC, CMVM, CMIS, TOXOG, TOXOM, HOCYS #### [facility] [place], [place] [phone] Insurance And Benefits Clerk: Tanvir Macias MD #### APTMUT, AF5MUT, AMTHFR, ACOXA9, APARVP, ACOXAB #### [facility] [address] [place] [address] Insurance And Benefits Clerk: Enrique Arthur MD Parvovirus IgM B19 0.12 IV Normal <=0.90 [facility] Comment on above: Result Comment: (NOT E) INTERPRETIVE INFORMATION: Parvovirus B19 Antibody, IgM EFFECTIVE 07/04/2023 REFERENCE INTERVAL CHANGE Due to reagent kit tailor fitter recall, an alternate kit has been validated and implemented by [facility]. The following Reference Interval applies to this result: 0.90 IV or less .......... Negative - No significant level of detectable Parvovirus B19 IgM antibody. 0.91 - 1.10 IV ........... Equivocal - Repeat testing in 7-21 days may be helpful. 1.11 IV or greater ........ Positive - IgM antibody to Parvovirus B19 detected which may indicate a current or recent infection. However, low levels of IgM antibodies may occasionally persist for more than 12 months post-infection. The best evidence for current infection is a significant change on two appropriately timed specimens, where both tests are done in the same laboratory at the same time. Appearance of an IgM antibody response normally occurs 7 to 14 days after the onset of disease. Testing immediately post-exposure is of no value without a later convalescent specimen. A residual IgM response may be distinguished from early IgM response to infection by testing sera from patients three to four weeks later for changing levels of specific IgM antibodies. Performed By: [facility] [address] [place] [address] Executive Sales Assistant: Nadeem Mcarthur MD, PhD CLIA Number: [id number] Performed By: #### C MVG, LUPPRO, AT3A, PROCAC, PROSAC, CMVM, CMIS, TOXOG, TOXOM, HOCYS #### [place] [address] Insurance And Benefits Clerk: Tanvir Macias MD #### APTMUT, AF5MUT, AMTHFR, ACOXA9, APARVP, ACOXAB #### [facility] [address] [place] [address] Insurance And Benefits Clerk: Enrique Arthur MD Antithrombin III [place] 10-18 Antithrombin III Act 106 % Normal 83-122 [facility] Comment on above: Result Comment: Patients receiving Hirudin may have a falsely decreased Antitrombin III Activity. Performed By: #### C MVG, LUPPRO, AT3A, PROCAC, PROSAC, CMVM, CMIS, TOXOG, TOXOM, HOCYS #### [address] [phone] Insurance And Benefits Clerk: Tanvir Macias MD #### APTMUT, AF5MUT, AMTHFR, ACOXA9, APARVP, ACOXAB #### [address] [phone] Insurance And Benefits Clerk: Enrique Arthur MD Lupus Anticoagulanton 2023 Anticardiolipin IgA 2.4 APL Normal 0.0-14.0 [facility] Comment on above: Result Comment: Reference Range: <14.0 Negative 14.0-20.0 Equivocal >20.0 Positive When results are Equivocal, it is recommended to retest after 4-6 weeks. Performed By: #### C MVG, LUPPRO, AT3A, PROCAC, PROSAC, CMVM, CMIS, TOXOG, TOXOM, HOCYS #### [address] [phone] Insurance And Benefits Clerk: Tanvir Macias MD #### APTMUT, AF5MUT, AMTHFR, ACOXA9, APARVP, ACOXAB #### [address] [phone] Insurance And Benefits Clerk: Enrique Arthur MD Anticardiolipin IgG 2.8 GPL Normal 0.0-10.0 [facility] Comment on above: Result Comment: Reference Range: <10.0 Negative 10.0-40.0 Equivocal >40.0 Positive Performed By: #### C MVG, LUPPRO, AT3A, PROCAC, PROSAC, CMVM, CMIS, TOXOG, TOXOM, HOCYS #### [address] [phone] Insurance And Benefits Clerk: Tanvir Macias MD #### APTMUT, AF5MUT, AMTHFR, ACOXA9, APARVP, ACOXAB #### [facility] [address] [place] [address] Insurance And Benefits Clerk: Enrique Arthur MD Anticardiolipin IgM <0.8 Normal 0.0-10.0 [facility] Comment on above: Result Comment: Reference Range: <10.0 Negative 10.0-40.0 Equivocal >40.0 Positive Performed By: #### C MVG, LUPPRO, AT3A, PROCAC, PROSAC, CMVM, CMIS, TOXOG, TOXOM, HOCYS #### [facility] [address] [place] [id number] Insurance And Benefits Clerk: Tanvir Macias MD #### APTMUT, AF5MUT, AMTHFR, ACOXA9, APARVP, ACOXAB #### [facility] [address] [place], [place] [phone] Insurance And Benefits Clerk: Enrique Arthur MD Dilute [place] Viper [facility] Comment on above: Performed By: #### C MVG, LUPPRO, AT3A, PROCAC, PROSAC, CMVM, CMIS, TOXOG, TOXOM, HOCYS #### [address] [phone] Insurance And Benefits Clerk: Tanvir Macias MD #### APTMUT, AF5MUT, AMTHFR, ACOXA9, APARVP, ACOXAB #### [facility] [address] [place], [place] [id number] Insurance And Benefits Clerk: Enrique Arthur MD Miscellaneouson 10-18-2023 Send Out Report [facility] [id number] Normal [facility] Comment on above: Result Comment: UNIT Y Performed By: #### C MVG, LUPPRO, AT3A, PROCAC, PROSAC, CMVM, CMIS, TOXOG, TOXOM, HOCYS #### [address] [phone] Insurance And Benefits Clerk: Tanvir Macias MD #### APTMUT, AF5MUT, AMTHFR, ACOXA9, APARVP, ACOXAB #### [facility] [address] [place] [id number] Insurance And Benefits Clerk: Enrique Arthur MD Protein C Activityon 024 Protein C Activity 91 % Normal >80 [facility] Comment on above: Result Comment: Patients on warfarin will have decreased functional protein C/S values. Warfarin therapy should be discontinued for two weeks for accurate measurement of functional protein C/S levels. Artifactually elevated levels of functional protein C/S may be seen in patients receiving heparin,rivaroxaban,apixaban,edozaban,and dabiqatran. Decreased functionality may be seen in patients with abnormally elevated levels of Factor VIII. Performed By: #### C MVG, LUPPRO, AT3A, PROCAC, PROSAC, CMVM, CMIS, TOXOG, TOXOM, HOCYS #### [employer] [facility] [address] [place] [phone] Insurance And Benefits Clerk: Tanvir Macias MD #### APTMUT, AF5MUT, AMTHFR, ACOXA9, APARVP, ACOXAB #### [facility] [address] [place] [address] Insurance And Benefits Clerk: Enrique Arthur MD Protein S Activityon 024 Protein S Activity 79 % Normal 59-130 [facility] Comment on above: Result Comment: Patients on warfarin will have decreased functional protein C/S values. Warfarin therapy should be discontinued for two weeks for accurate measurement of functional protein C/S levels. Artifactually elevated levels of functional protein C/S may be seen in patients receiving heparin,rivaroxaban,apixaban,edozaban,and dabiqatran. Decreased functionality may be seen in patients with abnormally elevated levels of Factor VIII. Performed By: #### C MVG, LUPPRO, AT3A, PROCAC, PROSAC, CMVM, CMIS, TOXOG, TOXOM, HOCYS #### [employer] [address] [place] [phone] Insurance And Benefits Clerk: Tanvir Macias MD #### APTMUT, AF5MUT, AMTHFR, ACOXA9, APARVP, ACOXAB #### [facility] [address] [place] [address] Insurance And Benefits Clerk: Enrique Arthur MD Toxoplasma Ab,IgGon 10-18-19 24 Toxoplasma Ab,IgG 1.2 IU/mL Normal [facility] Comment on above: Result Comment: REFERENCE RANGE: <6.3 NON-REACTIVE 6.4 TO 9.9 EQUIVOCAL >=10.0 REACTIVE THE PRESENCE OF TOXOPLASMA GONDII IgG ANTIBODIES IS INDICATIVE OF EXPOSURE TO THE PROTOZOAN. THE ABSENCE OF TOXOPLASMA IgG ANTIBODIES SUGGESTS THAT THE PATIENT HAS NOT BEEN EXPOSED TO THIS ORGANISM AND IS SUSCEPTIBLE TO PRIMARY INFECTION. DETERMINATION OF PRIMARY OR RECENT INFECTION REQUIRES DEMONSTRATING SEROCONVERSION BETWEEN ACUTE AND CONVALESCENT SERA. Performed By: #### C MVG, LUPPRO, AT3A, PROCAC, PROSAC, CMVM, CMIS, TOXOG, TOXOM, HOCYS #### [employer] [address] [place] [phone] Insurance And Benefits Clerk: Tanvir Macias MD #### APTMUT, AF5MUT, AMTHFR, ACOXA9, APARVP, ACOXAB #### [address] [address] Insurance And Benefits Clerk: Enrique Arthur MD Toxoplasma Ab,IgMon 10-18-19 24 Toxoplasma Ab,IgM 0.56 Index Normal [facility] Comment on above: Result Comment: REFERENCE RANGE: <0.90 NON-REACTIVE 0.90 TO 0.99 INDETERMINANT >=1.00 REACTIVE Performed By: #### C MVG, LUPPRO, AT3A, PROCAC, PROSAC, CMVM, CMIS, TOXOG, TOXOM, HOCYS #### [employer] [address] [place], [place] [phone] Insurance And Benefits Clerk: Tanvir Macias MD #### APTMUT, AF5MUT, AMTHFR, ACOXA9, APARVP, ACOXAB #### [facility] [address] [place] [address] Insurance And Benefits Clerk: Enrique Arthur MD CMV Ab,IgGon 10-17-2023 CMV Ab,IgG 523.0 High <0.5 [facility] Comment on above: Result Comment: Reference Range: <0.5 Non Reactive 0.5 to 0.9 Borderline >0.9 Reactive The absence of CMV antibodies suggests that the patient has not been exposed to the virus and is susceptible to primary infection. The presence of CMV IgG antibodies is indicative of previous exposure to the virus, but cannot distinguish between active or past infection. Patients suspected of having primary or active infection should be tested for the concurrent presence of CMV IgM antibodies and/or retested for seroconversion in 3 to 4 weeks. These results are not intended to replace virus isolation and should be interpreted within the context of clinical and other findings. The Emily ECLIA assay is used. Results obtained with different assay methods cannot be used interchangeably. Performed By: #### C MVG, LUPPRO, AT3A, PROCAC, PROSAC, CMVM, CMIS, TOXOG, TOXOM, HOCYS #### [facility] [address] [place], [place] [phone] Insurance And Benefits Clerk: Tanvir Macias MD #### APTMUT, AF5MUT, AMTHFR, ACOXA9, APARVP, ACOXAB #### [facility] [address] [place] [address] Insurance And Benefits Clerk: Enrique Arthur MD CMV Ab,IgMon 10-17-2023 CMV Ab,IgM 0.2 Normal <0.7 [facility] Comment on above: Result Comment: Reference Range: <0.7 Non Reactive 0.7 to 0.9 Borderline >0.9 Reactive The absence of CMV antibodies suggests that the patient has not been exposed to the virus and is susceptible to primary infection. The presence of CMV IgM antibodies is indicative of recent exposure to the virus. These results are not intended to replace virus isolation and should be interpreted within the context of clinical and other findings. The Emily ECLIA assay is used. Results obtained with different assay methods cannot be used interchangeably. Performed By: #### C MVG, LUPPRO, AT3A, PROCAC, PROSAC, CMVM, CMIS, TOXOG, TOXOM, HOCYS #### [facility] [address] [place] [address] [phone] Insurance And Benefits Clerk: Tanvir Macias MD #### APTMUT, AF5MUT, AMTHFR, ACOXA9, APARVP, ACOXAB #### [facility] [address] [place] [address] Insurance And Benefits Clerk: Enrique Arthur MD Homocysteineon 10-17-2023 Homocysteine 5.7 umol/L Normal <15.0 [facility] Comment on above: Performed By: #### C MVG, LUPPRO, AT3A, PROCAC, PROSAC, CMVM, CMIS, TOXOG, TOXOM, HOCYS #### [facility] [address] [place] [address] [phone] Insurance And Benefits Clerk: Tanvir Macias MD #### APTMUT, AF5MUT, AMTHFR, ACOXA9, APARVP, ACOXAB #### [facility] [address] [place] [address] Insurance And Benefits Clerk: Enrique Arthur MD Lupus Anticoagulanton 2023 aPTT Coag (Bld) [Time] 27.6 s Normal 23.0-36.5 [facility] Comment on above: Result Comment: IV Heparin Therapy Range: 66.0-92.0 sec Performed By: #### C MVG, LUPPRO, AT3A, PROCAC, PROSAC, CMVM, CMIS, TOXOG, TOXOM, HOCYS #### [facility] [address] [place] [address] [phone] Insurance And Benefits Clerk: Tanvir Macias MD #### APTMUT, AF5MUT, AMTHFR, ACOXA9, APARVP, ACOXAB #### [facility] [address] [place] [address] Insurance And Benefits Clerk: Enrique Arthur MD INR Coag (PPP) [Relative time] 1.0 {INR} Normal [facility] Comment on above: Result Comment: Therapeutic Range: Moderate Anticoagulant Intensity: INR = 2.0-3.0 High Anticoagulant Intensity: INR = 2.5-3.5 Performed By: #### C MVG, LUPPRO, AT3A, PROCAC, PROSAC, CMVM, CMIS, TOXOG, TOXOM, HOCYS #### [facility] [address] [place] [address] [phone] Insurance And Benefits Clerk: Tanvir Macias MD #### APTMUT, AF5MUT, AMTHFR, ACOXA9, APARVP, ACOXAB #### [facility] [address] [place] [address] Insurance And Benefits Clerk: Enrique Arthur MD PT Coag (PPP) [Time] 13.5 s Normal 11.7-14.9 [facility] Comment on above: Performed By: #### C MVG, LUPPRO, AT3A, PROCAC, PROSAC, CMVM, CMIS, TOXOG, TOXOM, HOCYS #### [facility] [address] [place] [address] [phone] Insurance And Benefits Clerk: Tanvir Macias MD #### APTMUT, AF5MUT, AMTHFR, ACOXA9, APARVP, ACOXAB #### [facility] [address] [place] [address] Insurance And Benefits Clerk: Enrique Arthur MD Basic Metabolic Panelon Glucose [Mass/Vol] 97 mg/dL [facility] CBC without diffOrdered By: Mayra Victoria on 07-26-2023 Hematocrit (Bld) [Volume fraction] 34.8 % [facility] Hemoglobin (Bld) [Mass/Vol] 11.3 g/dL [facility] Platelets (Bld) [#/Vol] 292 10*3/uL [facility] Rbc Mcv (Fl) By Automated Count 83.5 [facility] HIV 1&2 AB/AG Screen (P24 AG )on 07-26-2023 HIV 1&2 AB/AG Non-Reactive [facility] Hemoglobin A1con 07-26-2023 HbA1c (Bld) [Mass fraction] 5.0 % 4.0 - 6.0 % [facility] Hepatitis B surface antigeno n 07-26-2023 Hepatitis B Surface Antigen Negative [facility] No Panel InformationOrdered By: Mayra Victoria on 07-26-2023 [facility] Rubella IGG immune statuson 07-26-2023 Rubella immune IgG 5.26 [facility] Syphilis Total(Unknown Syphi lis Status)on 07-26-2023 Syphilis Non-Reactive [facility] TSHon 07-26-2023 TSH Qn 1.99 m[IU]/L [facility] Type and screenon 07-26-2023 Abo/Rh(D) Positive [facility] CBC AUTO DIFFon 07-28-2022 BASO # 0.0 103/ul Normal 0.0-0.1 [facility] Comment on above: Performed By: #### H CVPCRR #### [facility] [address] [place] [address] Dr. Carleen Underwood Basophils/100 WBC (Bld) 0.3 % Normal 0.2-2.0 [facility] Comment on above: Performed By: #### H CVPCRR #### [facility] [address] [place] [address] Dr. Carleen Underwood EO # 0.2 103/ul Normal 0.0-0.7 [facility] Comment on above: Performed By: #### H CVPCRR #### [facility] [address] [place] [address] Dr. Carleen Underwood Eosinophils/100 WBC (Bld) 1.5 % Normal 0.9-7.[address] [facility] Comment on above: Performed By: #### H CVPCRR #### [facility] [address] [place] [address] Dr. Carleen Underwood Erythrocyte distribution width (RBC) [Ratio] 14.9 % Normal 11.0-15.0 [facility] Comment on above: Performed By: #### H CVPCRR #### [facility] [address] [place] [address] Dr. Carleen Underwood Hematocrit (Bld) [Volume fraction] 30.7 % Critically low 36.0-48.0 [facility] Comment on above: Performed By: #### H CVPCRR #### [facility] [address] [place] [address] Dr. Carleen Underwood Hemoglobin (Bld) [Mass/Vol] 9.4 g/dL Critically low 12.0-16.0 [facility] Comment on above: Performed By: #### H CVPCRR #### [facility] [address] [address] [address] Carleen Underwood IG # 0.07 10e3/ul Critically high 0.00-0.03 [facility] Comment on above: Performed By: #### H CVPCRR #### [facility] [address] [place] [address] Dr. Carleen Underwood IG % 0.6 % Critically high 0.0-0.5 [facility] Comment on above: Performed By: #### H CVPCRR #### [facility] [address] [place] [address] Dr. Carleen Underwood LYMPH # 2.7 103/ul Normal 1.2-3.8 [facility] Comment on above: Performed By: #### H CVPCRR #### [facility] [address] [place] [address] Dr. Carleen Underwood Lymphocytes/100 WBC (Bld) 24.1 % Normal 20.5-60.0 [facility] Comment on above: Performed By: #### H CVPCRR #### [facility] [address] [place] [address] Dr. Carleen Underwood MANUAL DIFF REQ NO Normal [facility] Comment on above: Performed By: #### H CVPCRR #### [facility] [address] [place] [address] Dr. Carleen Underwood MCH (RBC) [Entitic mass] 23.3 pg Critically low 26.7-34.0 [facility] Comment on above: Performed By: #### H CVPCRR #### [facility] [address] [place] [address] Dr. Carleen Underwood MCHC (RBC) [Mass/Vol] 30.6 g/dL Normal 29.9-35.[address] [facility] Comment on above: Performed By: #### H CVPCRR #### [facility] [address] [address] [address] Carleen Underwood MCV (RBC) [Entitic vol] 76.2 fL Critically low 81.0-99.[address] [facility] Comment on above: Performed By: #### H CVPCRR #### [facility] [address] [address] [address] Carleen Underwood MONO # 0.7 103/ul Normal 0.3-0.8 [facility] Comment on above: Performed By: #### H CVPCRR #### [facility] [address] [address] [address] Carleen Underwood Monocytes/100 WBC (Bld) 5.8 % Normal 1.7-12.0 [facility] Comment on above: Performed By: #### H CVPCRR #### [facility] [address] [address] [address] Carleen Underwood NEUT # 7.6 103/ul Critically high 1.4-6.5 [facility] Comment on above: Performed By: #### H CVPCRR #### [facility] [address] [place] [address] Dr. Carleen Underwood Neutrophils/100 WBC (Bld) 67.7 % Normal 43.0-75.[address] [facility] Comment on above: Performed By: #### H CVPCRR #### [facility] [address] [address] [address] Carleen Underwood Platelet mean volume (Bld) [Entitic vol] 11.1 fL Normal 9.5-13.[address] [facility] Comment on above: Performed By: #### H CVPCRR #### [facility] [address] [address] [address] Carleen Underwood PLT 242 103/ul Normal 150-[address] [facility] Comment on above: Performed By: #### H CVPCRR #### [facility] [address] [place] [address] Dr. Carleen Underwood RBC 4.03 106/ul Critically low 4.20-5.40 [facility] Comment on above: Performed By: #### H CVPCRR #### [facility] [address] [place] [address] Dr. Carleen Underwood WBC 11.2 103/ul Critically high 4.0-11.0 [facility] Comment on above: Performed By: #### H CVPCRR #### [facility] [address] [place] [address] Dr. Carleen Underwood CBC AUTO DIFFon 07-27-2022 BASO # 0.0 103/ul Normal 0.0-0.1 [facility] Comment on above: Performed By: #### G LU1HR #### [facility] [address] [place] [address] Dr. Carleen Underwood Basophils/100 WBC (Bld) 0.5 % Normal 0.2-2.0 [facility] Comment on above: Performed By: #### G [id number] #### [facility] [address] [place] [address] Dr. Carleen Underwood EO # 0.1 103/ul Normal 0.0-0.7 [facility] Comment on above: Performed By: #### G [id number] #### [facility] [address] [place] [address] Dr. Carleen Underwood Eosinophils/100 WBC (Bld) 1.2 % Normal 0.9-7.[address] [facility] Comment on above: Performed By: #### G [id number] #### [facility] [address] [place] [address] Dr. Carleen Underwood Erythrocyte distribution width (RBC) [Ratio] 14.9 % Normal 11.0-15.0 [facility] Comment on above: Performed By: #### G [id number] #### [facility] [address] [place] [address] Dr. Carleen Underwood Hematocrit (Bld) [Volume fraction] 29.6 % Critically low 36.0-48.0 [facility] Comment on above: Performed By: #### G [id number] #### [facility] [address] [address] [address] Carleen Underwood Hemoglobin (Bld) [Mass/Vol] 9.3 g/dL Critically low 12.0-16.0 [facility] Comment on above: Performed By: #### G [id number] #### [facility] [address] [address] [address] Carleen Underwood IG # 0.04 10e3/ul Critically high 0.00-0.03 [facility] Comment on above: Performed By: #### G [id number] #### [facility] [address] [place] [address] Dr. Carleen Underwood IG % 0.5 % Normal 0.0-0.5 [facility] Comment on above: Performed By: #### G [id number] #### [facility] [address] [place] [address] Dr. Carleen Underwood LYMPH # 2.1 103/ul Normal 1.2-3.8 [facility] Comment on above: Performed By: #### G [id number] #### [facility] [address] [place] [address] Dr. Carleen Underwood Lymphocytes/100 WBC (Bld) 25.5 % Normal 20.5-60.0 [facility] Comment on above: Performed By: #### G [id number] #### [facility] [address] [place] [address] Dr. Carleen Underwood MANUAL DIFF REQ NO Normal [facility] Comment on above: Performed By: #### G [id number] #### [facility] [address] [place] [address] Dr. Carleen Underwood MCH (RBC) [Entitic mass] 23.2 pg Critically low 26.7-34.0 [facility] Comment on above: Performed By: #### G [id number] #### [facility] [address] [place] [address] Dr. Carleen Underwood MCHC (RBC) [Mass/Vol] 31.4 g/dL Normal 29.9-35.[address] [facility] Comment on above: Performed By: #### G [id number] #### [facility] [address] [place] [address] Dr. Carleen Underwood MCV (RBC) [Entitic vol] 73.8 fL Critically low 81.0-99.0 [facility] Comment on above: Performed By: #### G [id number] #### [facility] [address] [place] [address] Dr. Carleen Underwood MONO # 0.5 103/ul Normal 0.3-0.8 [facility] Comment on above: Performed By: #### G [id number] #### [facility] [address] [place] [address] Dr. Carleen Underwood Monocytes/100 WBC (Bld) 6.2 % Normal 1.7-12.0 [facility] Comment on above: Performed By: #### G [id number] #### [facility] [address] [place] [address] Dr. Carleen Underwood NEUT # 5.4 103/ul Normal 1.4-6.5 [facility] Comment on above: Performed By: #### G LU1HR #### [facility] [address] [place] [address] Dr. Carleen Underwood Neutrophils/100 WBC (Bld) 66.1 % Normal 43.0-75.0 [facility] Comment on above: Performed By: #### G [id number] #### [facility] [address] [place] [address] Dr. Carleen Underwood Platelet mean volume (Bld) [Entitic vol] 11.3 fL Normal 9.5-13.[address] [facility] Comment on above: Performed By: #### G [id number] #### [facility] [address] [place] [address] Dr. Carleen Underwood PLT 238 103/ul Normal 150-[address] [facility] Comment on above: Performed By: #### G LU1HR #### [facility] [address] [place] [address] Dr. Carleen Underwood RBC 4.01 106/ul Critically low 4.20-5.[address] [facility] Comment on above: Performed By: #### G LU1HR #### [facility] [address] [place] [address] Dr. Carleen Underwood WBC 8.2 103/ul Normal 4.0-11.0 [facility] Comment on above: Performed By: #### G LU1HR #### [facility] [address] [place] [address] Dr. Carleen Underwood Covid-19 PCR ([facility])on SARS-CoV-2 (COVID-19) RNA HUY+probe Ql (Unsp spec) Not detected Normal NOT DETECTED [facility] Comment on above: Result Comment: When diagnostic testing is negative, the possibility of a false negative should be considered in the context of a patient's recent exposures and the presence of clinical signs and symptoms consistent with SARS-CoV-2. This test is not yet approved or cleared by the [place] FDA. When there are no FDA-approved or cleared tests available, and other criteria are met, FDA can make tests available under an emergency access mechanism called an Emergency Use Authorization (EUA). The EUA for this test is supported by the [place] of Health and Human Service's declaration that circumstances exist to justify the emergency use of in vitro diagnostics for the detection and/or diagnosis of the virus that causes COVID-19. This EUA will remain in effect for the duration of the COVID-19 declaration justifying emergency of IVDs, unless it is terminated or revoked by the FDA (after which the test may no longer be used). Performed By: #### H CVPCRR #### [facility] [address] [place] [address] Dr. Carleen Underwood DRUG SCREEN RAPID (URINE)on 07-27-2022 AMP Negative Normal NEGATIVE [facility] Comment on above: Performed By: #### G TT3P #### [facility] [address] [place] [address] Dr. Carleen Underwood BAR Negative Normal NEGATIVE [facility] Comment on above: Performed By: #### G TT3P #### [facility] [address] [place] [address] Dr. Carleen Underwood BUP Negative Normal NEGATIVE [facility] Comment on above: Performed By: #### G TT3P #### [facility] [address] [place] [address] Dr. Carleen Underwood BZO Negative Normal NEGATIVE [facility] Comment on above: Performed By: #### G TT3P #### [facility] [address] [place] [address] Dr. Carleen Underwood EMIGDIO Negative Normal NEGATIVE [facility] Comment on above: Performed By: #### G TT3P #### [facility] [address] [place] [address] Dr. Carleen Underwood CUT-OFFS SEE BELOW Normal [facility] Comment on above: Result Comment: AMP (Amphetamine): 500ng/mL, BAR (Barbituates): 200 ng/mL, BZO (Benzodiazepines): 150 ng/mL, BUP (Buprenorphine): 10 ng/mL, EMIGDIO (Cocaine): 150 ng/mL, mAMP (Methamphetamine): 500 ng/mL, MTD (Methadone): 200 ng/mL, OPI (Opiates): 100 ng/mL, OXY (Oxycodone): 100 ng/mL, PCP (Phencyclidine): 25 ng/mL, PPX (Propoxyphene): 300 ng/mL, THC (Cannabinoids): 50 ng/mL, TCA (Trycyclic Antidepressants): 300 ng/mL Performed By: #### G TT3P #### [facility] [address] [place] [address] Dr. Carleen Underwood DRUG CUT HEADER DRUG CLASS TEST SYST EM CUT-OFF CONCENTRATIONS ARE FOLLOWS: Normal [facility] Comment on above: Performed By: #### G TT3P #### [facility] [address] [place] [address] Dr. Carleen Underwood mAMP Negative Normal NEGATIVE [facility] Comment on above: Performed By: #### G TT3P #### [facility] [address] [place] [address] Dr. Carleen Underwood MTD Negative Normal NEGATIVE [facility] Comment on above: Performed By: #### G TT3P #### [facility] [address] [place] [address] Dr. Carleen Underwood OPI Negative Normal NEGATIVE [facility] Comment on above: Performed By: #### G TT3P #### [facility] [address] [address] [address] Carleen Underwood OXY Negative Normal NEGATIVE [facility] Comment on above: Performed By: #### G TT3P #### [facility] [address] [address] [address] Carleen Underwood PCP Negative Normal NEGATIVE [facility] Comment on above: Performed By: #### G TT3P #### [facility] [address] [address] [address] Carleen Underwood PPX Negative Normal NEGATIVE [facility] Comment on above: Performed By: #### G TT3P #### [facility] [address] [place] [address] Dr. Carleen Underwood TCA Negative Normal NEGATIVE [facility] Comment on above: Performed By: #### G TT3P #### [facility] [address] [place] [address] Dr. Carleen Underwood THC Negative Normal NEGATIVE [facility] Comment on above: Performed By: #### G TT3P #### [facility] [address] [address] [address] Carleen Underwood TYPE AND SCREENon 07-27-2022 TYPE AND SCREEN Negative Normal [facility] Comment on above: Performed By: #### G TT3P #### [facility] [address] [place] [address] Dr. Carleen Underwood US PREG AMNIOTIC FLUID VOLUM True 07-12-2022 US PREG AMNIOTIC FLUID VOLUME EXAMINATION: US PREG AMNIOTIC FLUID VOLUME HISTORY: Oligohydramnios COMPARISON: Ultrasound biophysical 07/09/2022, ultrasound growth 07/05/2022 TECHNIQUE: Limited sonographic examination for amniotic fluid volume FINDINGS: Presentation: Cephalic Amniotic fluid: 8.9 cm (between fifth and 95th percentile) Heart rate: 151 bpm GA: 36 weeks 6 days VALERIA: 08/03/2022 IMPRESSION: 1. Single live intrauterine . 2. Amniotic fluid index is 8.9 cm which is slightly improved compared to prior study (7.9 cm). This falls just above the 5th percentile. Electronically authenticated by: FOUZIA CALERO Date: 2022-07-12 16:24 Normal [facility] US PREG BIOPHY W NON STRESSo n 07-09-2022 US PREG BIOPHY W NON STRESS EXAMINATION: US PREG BIOPHY W NON STRESS HISTORY: Oligohydramnios COMPARISON: No relevant comparison available. TECHNIQUE: Ultrasound biophysical profile was performed in the radiology department. FINDINGS: BREATHING MOVEMENTS: 2.0 GROSS BODY MOVEMENTS: 2.0 TONE: 2.0 QUALITATIVE AMNIOTIC FLUID VOLUME: 2.0 PRESENTATION: Cephalic HEART RATE: 150.8 bpm H.B./min AMNIOTIC FLUID VOLUME: 7.9 cm cm, 5th percentile 6.7 cm GESTATIONAL AGE: 36 weeks 3 days CONCLUSION: Total biophysical profile score: 8.0 Electronically authenticated by: BRANDI ANN Date: 2022-07-09 16:35 Normal [address] [facility] US PREG BIOPHY W NON STRESSo n 07-06-2022 US PREG BIOPHY W NON STRESS EXAMINATION: US PREG BIOPHY W NON STRESS HISTORY: Oligohydramnios COMPARISON: No relevant comparison available. TECHNIQUE: Ultrasound biophysical profile was performed. FINDINGS: BREATHING MOVEMENTS: 2.0 GROSS BODY MOVEMENTS: 2.0 TONE: 2.0 QUALITATIVE AMNIOTIC FLUID VOLUME: 2.0 PRESENTATION: CEPHALIC HEART RATE: 147.5 bpm bpm. AMNIOTIC FLUID VOLUME: 7.2 cm GESTATIONAL AGE: 36 weeks 0 days CONCLUSION: Total biophysical profile score 8.0. Electronically authenticated by: FOUZIA CALERO Date: 2022-07-06 17:28 Normal [facility] GROUP B STREP CULTUREon 06-26 S. agalactiae Ag (Unsp spec) Culture Observations: NEGATIVE FOR GROUP B STREPTOCOCCUS. Normal [facility] Comment on above: Performed By: #### G TT3P #### [facility] [address] [place] [address] Dr. Carleen Underwood US PREG GROWTHon 07-05-2022 US PREG GROWTH EXAMINATION: US PREG GROWTH HISTORY: Large for gestation age fetus COMPARISON: Ultrasound growth 06/11/2022 FINDINGS: Heart Rate: 142.0 bpm Number: 1.0 Position: CEPHALIC Amniotic Fluid Volume: 7.7 cm Maximum Vertical Pocket: 4.0 cm BIOMETRY: BPD: 8.4 cm cm; 33 weeks 5 days; 8% HC: 31.7 cmcm; 35 weeks 5 days; 16% AC: 33.0 cm cm; 36 weeks 6 days; 85% FL: 7.1 cm cm; 36 weeks 4 days; 64% EFW: 2902.9 grams; 63% FL/AC: 21.7 FL/BPD: 85.1 HC/AC: 1.0 GESTATIONAL AGE: Age by EDC: 35 weeks 6 days VAELRIA by EDC: 08/03/2022 Age by US: 35 weeks 5 days VALERIA by US: 08/04/2022 IMPRESSION: 1. Single live intrauterine with growth detailed above. 2. Oligohydramnios. Dr. Marroquin was notified of these findings by health safety and environment manager at time of imaging. 3. Biparietal diameter is at 8th percentile. Electronically authenticated by: FOUZIA CALERO Date: 2022-07-05 16:58 Normal [facility] PREG GROWTHon 06-11-2022 US PREG GROWTH EXAMINATION: US PREG GROWTH HISTORY: Excessive growth affecting management of mother COMPARISON: No relevant comparison available. FINDINGS: Heart Rate: 147.5 bpm Number: 1.0 Position: CEPHALIC Amniotic Fluid Volume: 10.0 cm Maximum Vertical Pocket: 4.5 cm BIOMETRY: BPD: 7.8 cm cm; 31 weeks 3 days HC: 29.4 cmcm; 32 weeks 3 days AC: 27.6 cm cm; 31 weeks 5 days FL: 6.6 cm cm; 34 weeks 1 days EFW: 1982.6 grams; 41% FL/AC: 24.0 FL/BPD: 84.7 HC/AC: 1.1 GESTATIONAL AGE: Age by EDC: 32 weeks 3 days VALERIA by EDC: 08/03/2022 Age by US: 32 weeks 3 days VALERIA by US: 08/03/2022 IMPRESSION: 1. Single live intrauterine with growth detailed above. Electronically authenticated by: FOUZIA CALERO Date: 2022-06-11 16:22 Normal [facility] US PREG INCOMPLETE ANATOMYon 06-11-2022 US PREG INCOMPLETE ANATOMY EXAMINATION: US PREG INCOMPLETE ANATOMY HISTORY: screening COMPARISON: Ultrasound anatomy 05/14/2022 FINDINGS: Presentation: Cephalic Amniotic fluid: 10.0 cm (normal range) Heart rate: 148 beats per minutes Anatomy: Nose/lips/hard palate visualized and unremarkable. GA: 32 weeks 3 days VALERIA: 08/03/2022 IMPRESSION: 1. Single live intrauterine . 2. Adequate visualization of the nose/lips/hard palate without appreciable abnormality. Electronically authenticated by: FOUZIA CALERO Date: 2022-06-11 16:[address] [facility] US PREG INCOMPLETE ANATOMYon 05-14-2022 US PREG INCOMPLETE ANATOMY EXAMINATION: US PREG INCOMPLETE ANATOMY HISTORY: screening COMPARISON: Ultrasound anatomy 03/19/2022 FINDINGS: JOSEPHINE: Subjectively normal Heart rate: 137 bpm Anatomy: Nose and lips/hard palate GA: 20 weeks, 3 days VALERIA: 08/03/2022 IMPRESSION: 1. Single live intrauterine . 2. Again slightly limited evaluation of the hard palate due to position with extremities in front of face, but no appreciable abnormality. Electronically authenticated by: FOUZIA CALERO Date: 2022-05-14 17:[address] [facility] GTT 3 HR PREGon 04-24-2022 Glucose [Mass/Vol] 91 mg/dL Normal 74-[address] [facility] Comment on above: Performed By: #### G TT3P #### [facility] [address] [address] [address] Carleen Underwood Glucose [Mass/Vol] 141 mg/dL Normal [facility] Comment on above: Performed By: #### G TT3P #### [facility] [address] [address] [address] Carleen Underwood Glucose [Mass/Vol] 103 mg/dL Normal [facility] Comment on above: Performed By: #### G TT3P #### [facility] [address] [address] [address] Carleen Underwood Glucose [Mass/Vol] 75 mg/dL Normal [facility] Comment on above: Performed By: #### G TT3P #### [facility] [address] [address] [address] Carleen Underwood US PREG INCOMPLETE ANATOMYon 04-23-2022 US PREG INCOMPLETE ANATOMY Begin Addendum #1 The findings should read: Suboptimal anatomy: Hard palate Original Report EXAMINATION: US PREG INCOMPLETE ANATOMY HISTORY: screening COMPARISON: 03/19/2022 FINDINGS: position: Breech Placenta: Anterior. Placental edge 3.0 cm from the cervical os, grade 0 Heart rate: 150 bpm Cervix: 4.1 cm, closed Normal anatomy: RVOT, LVOT Suboptimal anatomy: Heart palate IMPRESSION: Low lying placenta, 3 cm from the cervical os Normal ventricular outflow tracts Normal [facility] PAP ACOG PANEL 2: 30 to 65on 04-20-2022 . . Normal [facility] Comment on above: Result Comment: Perf ormed at: WB Performed By: #### [id number] #### [facility] [address] [address] [address] Carleen Underwood Age Gdln ACOG Testing - Normal [facility] Comment on above: Performed By: #### [id number] #### [facility] [address] [address] [address] Carleen Underwood DIAGNOSIS: Comment Normal [facility] Comment on above: Result Comment: NEGA TIVE FOR INTRAEPITHELIAL LESION OR MALIGNANCY. Performed at: WB Performed By: #### [id number] #### [facility] [address] [address] [address] Carleen Underwood HPV Aptima Negative Normal Negative [facility] Comment on above: Result Comment: This nucleic acid amplification test detects fourteen high-risk HPV types (16,18,31,33,35,39,45,51,52,56,58,59,66,68) without differentiation. Performed at: =G Performed By: #### [id number] #### [facility] [address] [address] [address] Carleen Underwood Methodology: Comment Normal [facility] Comment on above: Result Comment: This liquid based ThinPrep(R) pap test was screened with the use of an image guided system. Performed at: WB Performed By: #### [id number] #### [facility] [address] [place] [address] Dr. Carleen Underwood Note: Comment Normal [facility] Comment on above: Result Comment: The Pap smear is a screening test designed to aid in the detection of premalignant and malignant conditions of the uterine cervix. It is not a diagnostic procedure and should not be used as the sole means of detecting cervical cancer. Both false-positive and false-negative reports do occur. . Performed at: WB Performed By: #### [id number] #### [facility] [address] [place] [address] Dr. Carleen Underwood Performed by: Comment Normal [facility] Comment on above: Result Comment: Carol Aguilar, Hydrology Professor Performed at: WB Performed By: #### [id number] #### [facility] [address] [place] [address] Dr. Carleen Underwood Specimen adequacy: Comment Normal [facility] Comment on above: Result Comment: Sati sfactory for evaluation. No endocervical component is identified. Performed at: WB Performed By: #### [id number] #### [facility] [address] [place] [address] Dr. Carleen Underwood CHLAMYDIA/GONOCOCCUS HUY (SW AB/URINE/PAPon 04-19-2022 Chlamydia trachomatis, HUY Negative Normal Negative [facility] Comment on above: Performed By: #### H CVPCRR #### [facility] [address] [place] [address] Dr. Carleen Underwood Neisseria gonorrhoeae, HUY Negative Normal Negative [facility] Comment on above: Performed By: #### H CVPCRR #### [facility] [address] [place] [address] Dr. Carleen Underwood VAGINITIS/VAGINOSIS DNA PROB True 04-19-2022 Priya species Negative Normal Negative [facility] Comment on above: Performed By: #### G [id number] #### [facility] [address] [place] [address] Dr. Carleen Underwood Gardnerella vaginalis Negative Normal Negative [facility] Comment on above: Performed By: #### G LU1HR #### [facility] [address] [place] [address] Dr. Carleen Underwood Trichomonas vaginalis Negative Normal Negative [facility] Comment on above: Performed By: #### G LU1HR #### [facility] [address] [place] [address] Dr. Carleen Underwood GLUCOSE - 1HRon 04-17-2022 Glucose [Mass/Vol] 150 mg/dL Critically high 74-106 [facility] Comment on above: Performed By: #### G LU1HR #### [facility] [address] [place] [address] Dr. Carleen Underwood HEMOGRAM AND PLATELon 2021 Hematocrit (Bld) [Volume fraction] 31.9 % Critically low 36.0-48.0 [facility] Comment on above: Performed By: #### H H #### [facility] [address] [place] [address] Dr. Carleen Underwood Hemoglobin (Bld) [Mass/Vol] 10.3 g/dL Critically low 12.0-16.0 [facility] Comment on above: Performed By: #### H H #### [facility] [address] [place] [address] Dr. Carleen Underwood MCH (RBC) [Entitic mass] 26.6 pg Critically low 26.7-34.0 [facility] Comment on above: Performed By: #### H H #### [facility] [address] [place] [address] Dr. Carleen Underwood MCHC (RBC) [Mass/Vol] 32.3 g/dL Normal 29.9-35.2 [facility] Comment on above: Performed By: #### H H #### [facility] [address] [place] [address] Dr. Carleen Underwood MCV (RBC) [Entitic vol] 82.4 fL Normal 81.0-99.0 [facility] Comment on above: Performed By: #### H H #### [facility] [address] [place] [address] Dr. Carleen Underwood PLT 233 103/ul Normal 150-[address] [facility] Comment on above: Performed By: #### H H #### [facility] [address] [place] [address] Dr. Carleen Underwood RBC 3.87 106/ul Critically low 4.20-5.40 [facility] Comment on above: Performed By: #### H H #### [facility] [address] [address] [address] Carleen Underwood WBC 8.5 103/ul Normal 4.0-11.0 [facility] Comment on above: Performed By: #### H H #### [facility] [address] [place], [place] [address] Dr. Carleen Underwood AFP MATERNAL FOR SPINA BIFID Aon 03-22-2022 AFP MoM 1.08 Normal [facility] Comment on above: Performed By: #### H CVPCRR #### [facility] [address] [address] [address] Carleen Underwood AFP Value 43.1 ng/mL Normal [facility] Comment on above: Performed By: #### H CVPCRR #### [facility] [address] [address] [address] Carleen Underwood AFP, Serum for Spina Bifida Report Normal [facility] Comment on above: Performed By: #### H CVPCRR #### [facility] [address] [address] [address] Carleen Underwood Comment Comment Normal [facility] Comment on above: Result Comment: Re Quick, Ph.D., [facility] Director . References: Available Upon Request. . Multiples Of Median Cutoffs For AFP Elevations Hopson 2.5 Black 2.8 IDD 2.0 Twins 4.5 Abbreviation Definitions IDD - Insulin Dep Diabetes OSBR - Open Spina Bifida Risk . For further inquiries contact [facility] at [phone]. . This test was developed and its performance characteristics determined by [employer]. It has not been cleared or approved by the Food and Drug Administration. Performed By: #### H CVPCRR #### [facility] [address] [address] [address] Carleen Marie Age Collection Date 19.4 weeks Normal [facility] Comment on above: Performed By: #### H CVPCRR #### [facility] [address] [address] [address] Carleen Underwood Gestat, Age Based on LMP Normal [facility] Comment on above: Result Comment: Reca lculations are not recommended when gestational dating by LMP and ultrasound are within 10 days. Performed By: #### H CVPCRR #### [facility] [address] [place] [address] Dr. Carleen Underwood Insulin Dep Diabetes No Normal [facility] Comment on above: Performed By: #### H CVPCRR #### [facility] [address] [place] [address] Dr. Carleen Underwood Interpretation Comment Normal [facility] Comment on above: Result Comment: Inte rpretation: Screen Negative . This result is screen negative for OSB. The AFP MoM calculated is based on the gestational age provided. MS-AFP can identify up to 80% of open neural tube defects. Closed neural tube defects and some open defects may not be detected by this test. This test does not screen for Down Syndrome or Trisomy 18. If screening for Down Syndrome or Trisomy 18 is desired, contact [facility] to discuss available options. The [place] [employer] recommends amniocentesis be offered to women age 35 and older. Performed By: #### H CVPCRR #### [facility] [address] [place] [address] Dr. Carleen Underwood [age] [facility] Comment on above: Performed By: #### H CVPCRR #### [facility] [address] [place] [address] Dr. Carleen Underwood Multiple Gestation No Normal [facility] Comment on above: Performed By: #### H CVPCRR #### [facility] [address] [place] [address] Dr. Carleen Underwood OSBR Risk 1 [place] [address] [facility] Comment on above: Performed By: #### H CVPCRR #### [facility] [address] [place] [address] Dr. Carleen Underwood PDF . Normal [facility] Comment on above: Performed By: #### H CVPCRR #### [facility] [address] [place] [address] Dr. Carleen Underwood Race Normal [facility] Comment on above: Performed By: #### H CVPCRR #### [facility] [address] [place], [place] [address] Dr. Carleen Underwood Test Results: Negative Normal [facility] Comment on above: Performed By: #### H CVPCRR #### [facility] [address] [place], [place] [address] Dr. Carleen Underwood US PREG ANATOMY SINGLEon US PREG ANATOMY SINGLE EXAMINATION: US PREG ANATOMY SINGLE HISTORY: anatomy study COMPARISON: No relevant comparison available. TECHNIQUE: Transabdominal sonographic examination was performed for obstetrical and evaluation. FINDINGS: Number: 1 Heart Rate: 155.0 bpm H.B. /min Amniotic Fluid Volume: Subjectively normal Placental Location: ANTERIOR with lower margin 2.5 cm from os. Cervix Length: 4.8 cm, closed. ANATOMY: Normal Structures -cerebellum, choroid plexus, cisterna magna, lateral cerebral ventricles, orbits, midline falx, four-chamber heart, stomach, kidneys, bladder, umbilical cord insertion into abdomen, three-vessel cord, cervical spine, thoracic spine, lumbar spine, sacral spine, right upper extremity, left upper extremity, right lower extremity, left lower extremity. SUBOPTIMALLY SEEN: Right and left cardiac ventricle outflow tracts, hard palate. ABNORMALITIES: None BIOMETRY: BPD: 4.2 cm 18 weeks 5 days ; less than 3% HC: 17.0 cm 19 weeks 4 days; 11% AC: 15.0 cm 20 weeks 2 days; 37% FL: 3.5 cm 21 weeks 0 days; 64% EFW:353.4 grams; 45% FL/AC: 23.4 FL/BPD: 83.7 HC/AC: 1.1 GESTATIONAL AGE: Age by EDC: 20 weeks 3 days VALERIA by EDC: 08/03/2022 Age by current US: 19 weeks 6 days VALERIA by current US: 08/07/2022 IMPRESSION: 1. Single live intrauterine with growth detailed above. 2. Biparietal diameter is less than 3rd percentile. 3. Suboptimal visualization of the cardiac outflow tracts and the heart palate. 4. Low-lying anterior placenta. Electronically authenticated by: FOUZIA CALERO Date: 2022-03-19 17:04 [address] [facility] GLUCOSE - 1HRon 02-14-2022 Glucose [Mass/Vol] 107 mg/dL Critically high 74-[address] [facility] Comment on above: Performed By: #### H CVPCRR #### [facility] [address] [place] [address] Dr. Carleen Underwood HEP B SURFACE ANTIGEN SCREEN on 01-13-2022 HBsAg Screen Negative Normal Negative [facility] Comment on above: Performed By: #### H BSANS #### [facility] [address] [place] [address] Dr. Carleen Underwood HEPATITIS C VIRUS AB W/ REFL EX QUANTon 01-13-2022 HCV AB <0.1 Normal 0.0-0.9 [facility] Comment on above: Performed By: #### H CVPCRR #### [facility] [address] [place] [address] Dr. Carleen Underwood Interpretation: Comment Normal [facility] Comment on above: Result Comment: Nega tive Not infected with HCV, unless recent infection is suspected or other evidence exists to indicate HCV infection. Performed By: #### H CVPCRR #### [facility] [address] [place] [address] Dr. Carleen Underwood HIV 1 AND 2 WITH REFLEXon HIV Screen 4th Generation wRfx Non-Reactive Normal Non Reactive [facility] Comment on above: Result Comment: HIV Negative HIV-1/HIV-2 antibodies and HIV-1 p24 antigen were NOT detected. There is no laboratory evidence of HIV infection. Performed By: #### G LU1HR #### [facility] [address] [place] [address] Dr. Carleen Underwood RPR QUANTon 01-13-2022 Rapid Plasma Reagin, Quant Non-Reactive Normal NonRea<1:[address] [facility] Comment on above: Result Comment: Plea se Note: This test does not meet current guidelines for screening and diagnosis of syphilis. This test is intended for following treatment response in patients being treated for syphilis infection. To screen for syphilis infection, a reflex cascade that includes both RPR and a treponema-specific assay should be utilized, such as Treponema pallidum (Syphilis) Screening [place] (333770) or Rapid Plasma Reagin (RPR) Test With Reflex to Quantitative RPR and Confirmatory Treponema pallidum Antibodies (987864). Performed By: #### H CVPCRR #### [facility] [address] [place] [address] Dr. Carleen Underwood RUBELLA AB IGGon 01-13-2022 Rubella Antibodies, IgG 4.86 index Normal Immune >0.99 [facility] Comment on above: Result Comment: Non- immune <0.90 Equivocal 0.90 - 0.99 Immune >0.99 Performed By: #### R UBIGG #### [facility] [address] [place] [address] Dr. Carleen Underwood CBC AUTO DIFFon 01-12-2022 BASO # 0.0 103/ul Normal 0.0-0.1 [facility] Comment on above: Performed By: #### C BC #### [facility] [address] [place] [address] Dr. Carleen Underwood Basophils/100 WBC (Bld) 0.4 % Normal 0.2-2.0 [facility] Comment on above: Performed By: #### C BC #### [facility] [address] [place] [address] Dr. Carleen Underwood EO # 0.1 103/ul Normal 0.0-0.7 [facility] Comment on above: Performed By: #### C BC #### [facility] [address] [place] [address] Dr. Carleen Underwood Eosinophils/100 WBC (Bld) 1.1 % Normal 0.9-7.0 [facility] Comment on above: Performed By: #### C BC #### [facility] [address] [place] [address] Dr. Carleen Underwood Erythrocyte distribution width (RBC) [Ratio] 14.5 % Normal 11.0-15.[address] [facility] Comment on above: Performed By: #### C BC #### [facility] [address] [place] [address] Dr. Carleen Underwood Hematocrit (Bld) [Volume fraction] 35.8 % Critically low 36.0-48.0 [facility] Comment on above: Performed By: #### C BC #### [facility] [address] [place] [address] Dr. Carleen Underwood Hemoglobin (Bld) [Mass/Vol] 11.2 g/dL Critically low 12.0-16.0 [facility] Comment on above: Performed By: #### C BC #### [facility] [address] [place] [address] Dr. Carleen Underwood IG # 0.02 10e3/ul Normal 0.00-0.[address] [facility] Comment on above: Performed By: #### C BC #### [facility] [address] [place] [address] Dr. Carleen Underwood IG % 0.4 % Normal 0.0-0.5 [facility] Comment on above: Performed By: #### C BC #### [facility] [address] [place] [address] Dr. Carleen Underwood LYMPH # 1.6 103/ul Normal 1.2-3.[address] [facility] Comment on above: Performed By: #### C BC #### [facility] [address] [place] [address] Dr. Carleen Underwood Lymphocytes/100 WBC (Bld) 27.9 % Normal 20.5-60.0 [facility] Comment on above: Performed By: #### C BC #### [facility] [address] [place] [address] Dr. Carleen Underwood MANUAL DIFF REQ NO Normal [facility] Comment on above: Performed By: #### C BC #### [facility] [address] [place] [address] Dr. Carleen Underwood MCH (RBC) [Entitic mass] 26.1 pg Critically low 26.7-34.[address] [facility] Comment on above: Performed By: #### C BC #### [facility] [address] [place] [address] Dr. Carleen Underwood MCHC (RBC) [Mass/Vol] 31.3 g/dL Normal 29.9-35.[address] [facility] Comment on above: Performed By: #### C BC #### [facility] [id number] Carleen Underwood MCV (RBC) [Entitic vol] 83.4 fL Normal 81.0-99.[address] [facility] Comment on above: Performed By: #### C BC #### [facility] [address] [place] [address] Dr. Carleen Underwood MONO # 0.4 103/ul Normal 0.3-0.[address] [facility] Comment on above: Performed By: #### C BC #### [facility] [address] [place] [address] Dr. Carleen Underwood Monocytes/100 WBC (Bld) 6.2 % Normal 1.7-12.[address] [facility] Comment on above: Performed By: #### C BC #### [facility] [address] [place] [address] Dr. Carleen Underwood NEUT # 3.7 103/ul Normal 1.4-6.[address] [facility] Comment on above: Performed By: #### C BC #### [facility] [address] [place] [address] Dr. Carleen Underwood Neutrophils/100 WBC (Bld) 64.0 % Normal 43.0-75.[address] [facility] Comment on above: Performed By: #### C BC #### [facility] [address] [place] [address] Dr. Carleen Underwood Platelet mean volume (Bld) [Entitic vol] 10.3 fL Normal 9.5-13.[address] [facility] Comment on above: Performed By: #### C BC #### [facility] [address] [place] [address] Dr. Carleen Underwood PLT 229 103/ul Normal 150-[address] [facility] Comment on above: Performed By: #### C BC #### [facility] [address] [place] [address] Dr. Carleen Underwood RBC 4.29 106/ul Normal 4.20-5.[address] [facility] Comment on above: Performed By: #### C BC #### [facility] [address] [place] [address] Dr. Carleen Underwood WBC 5.7 103/ul Normal 4.0-11.0 [facility] Comment on above: Performed By: #### C BC #### [facility] [address] [place] [address] Dr. Carleen Underwood CULTURE URINEon 01-12-2022 CULTURE URINE Culture Observations : LIGHT GROWTH OF MIXED GENITAL YULI. NO POTENTIAL PATHOGENS SEEN. Normal [facility] Comment on above: Performed By: #### U RCX #### [facility] [address] [place] [address] Dr. Carleen Underwood GLYCOHEMOGLOBIN A1Con 2021 ADA RECOMMENDATION SEE BELOW Normal [facility] Comment on above: Result Comment: ADA RECOMMENDED LIMIT 4.0 - 6.0 ADA THERAPEUTIC TARGET < 7.0 ACTION SUGGESTED > 7.0 Performed By: #### G LU1HR #### [facility] [address] [place] [address] Dr. Carleen Underwood Glucose [Mass/Vol] 100 mg/dL Normal [facility] Comment on above: Performed By: #### G LU1HR #### [facility] [address] [place] [address] Dr. Carleen Underwood HbA1c (Bld) [Mass fraction] 5.1 % Normal 4.5-6.2 [facility] Comment on above: Performed By: #### G LU1HR #### [facility] [address] [place] [address] Dr. Carleen Underwood EMILY BOX TEST PT SEND OUTo n 01-12-2022 SENT TO REF LAB 01/12/[address]22 [address] [facility] Comment on above: Performed By: #### H CVPCRR #### [facility] [address] [place] [address] Dr. Carleen Underwood TYPE AND SCREENon 01-12-2022 TYPE AND SCREEN Negative Normal [facility] Comment on above: Performed By: #### T NS #### [facility] [address] [place] [address] Dr. Carleen Underwood US PREG TVon 12-29-2021 US PREG TV EXAMINATION: US PREG TV HISTORY: Missed period COMPARISON: No relevant comparison available. FINDINGS: Hopson intrauterine gestation Gestational sac: 3.4 cm, 8 weeks 4 days CRL: 2.06 cm, 8 weeks 5 days Yolk sac: 0.45 cm Heart rate: 183 bpm Cervix: Closed, 4.4 cm The uterus is normal in appearance, anteverted, anteflexed The right ovary measures 2.3 x 2.4 x 2.0 cm. Corpus luteal cyst. Left ovary is normal in appearance measuring 2.3 x 1.2 x 2.1 cm Clinical age: 9 weeks 0 days Clinical VALERIA: 08/03/2022 Ultrasound age: 8 weeks 5 days Ultrasound VALERIA: 08/05/2022 IMPRESSION: Viable hopson intrauterine gestation measuring 8 weeks 5 days Electronically authenticated by: BRANDI ANN Date: 2021-12-29 16:07 Normal [facility] Coding Summary.on 02-12-2020 Coding Summary. 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 However, the narrative phrase printed from the coding software may appear abbreviated, or result in slightly different terminology. Coded By: Elizabeth Esquivel Date Saved: 02/12/2020 10:10 am [facility] Physician Orderon 02-07-2020 Physician Order [id number] Normal [facility] Vital Signs Date Time Vital Sign Value Performing Clinician Facility 07-15-2023 13:00-0500 Body height 170.81 cm Chery Aranda Other [facility] Other 07-15-2023 13:00-0500 Body mass index (BMI) [Ratio] 39.95 kg/m2 Chery Aranda Other [facility] Other 07-15-2023 13:00-0500 Body weight 116.58 kg Chery Aranda Other [facility] Other 07-15-2023 13:00-0500 Diastolic blood pressure 74 mm[Hg] Chery Aranda Other [facility] Other 07-15-2023 13:00-0500 Systolic blood pressure 107 mm[Hg] Chery Aranda Other [facility] Other 06-14-2023 13:30-0400 Body height 170.81 cm Chery Aranda Other [facility] Other 06-14-2023 13:30-0400 Body mass index (BMI) [Ratio] 39.42 kg/m2 Chery Aranda Other [facility] Other 06-14-2023 13:30-0400 Body weight 115.03 kg Chery Aranda Other [facility] Other 06-14-2023 13:30-0400 Diastolic blood pressure 72 mm[Hg] Chery Aranda Other [facility] Other 06-14-2023 13:30-0400 Systolic blood pressure 118 mm[Hg] Chery Aranda Other [facility] Other 05-16-2023 13:00-0400 Body height 170.81 cm Chery Aranda Other [facility] Other 05-16-2023 13:00-0400 Body mass index (BMI) [Ratio] 40.1 kg/m2 Chery Aranda Other [facility] Other 05-16-2023 13:00-0400 Body weight 117.03 kg Chery Aranda Other [facility] Other 05-16-2023 13:00-0400 Diastolic blood pressure 67 mm[Hg] Chery Aranda Other [facility] Other 05-16-2023 13:00-0400 Systolic blood pressure 102 mm[Hg] Chery Aranda Other [facility] Other 04-15-2023 13:00-0400 Body height 170.81 cm Chery Aranda Other [facility] Other 04-15-2023 13:00-0400 Body mass index (BMI) [Ratio] 41.35 kg/m2 Chery Aranda Other [facility] Other 04-15-2023 13:00-0400 Body weight 120.66 kg Chery Aranda Other [facility] Other 04-15-2023 13:00-0400 Diastolic blood pressure 71 mm[Hg] Chery Aranda Other [facility] Other 04-15-2023 13:00-0400 Systolic blood pressure 110 mm[Hg] Chery Aranda Other [facility] Other 03-22-2022 02:06-0400 Body weight 117.[address] BRANDI ANN [facility] Comment on above: Performed By: #### HCVPCRR #### [facility] [address] [place] [address] Dr. Carleen Underwood Encounters Encounter Date Encounter Type Care Provider Facility Start: 11-13-2023 End: 11-13-2023 ambulatory DINH AYDE Not Available Start: 10-17-2023 End: 10-18-2023 ambulatory COLIN BOWLING [facility] Start: 10-16-2023 End: 10-16-2023 ambulatory DINH AYDE Not Available Start: 10-04-2023 Chart abstracting Chao Marmolejo MD Work Phone: [facility] Start: 09-18-2023 End: 09-18-2023 ambulatory FRIEDA MILLS Not Available Start: 08-20-2023 End: 08-20-2023 ambulatory DINH MARROQUIN Not Available Start: 07-26-2023 End: 07-26-2023 ambulatory DINH MARROQUIN Not Available Start: 07-15-2023 End: 07-15-2023 ambulatory Chery Aranda Other [facility] Other Start: 07-15-2023 Office outpatient vi sit 10 minutes Chery Aranda [facility] Start: 06-14-2023 End: 06-14-2023 ambulatory Chery Aranda Other [facility] Other Start: 06-14-2023 Office outpatient vi sit 10 minutes Chery Aranda [facility] Start: 05-16-2023 End: 05-16-2023 ambulatory Chery Aranda Other [facility] Other Start: 05-16-2023 Office outpatient vi sit 10 minutes Chery Aranda [facility] Start: 04-15-2023 End: 04-15-2023 ambulatory Chery Aranda Other [facility] Other Start: 04-15-2023 Office outpatient ne w 45 minutes Chery Aranda [facility] Start: 07-31-2022 End: 07-31-[address] DINH MARROQUIN Facility:[facility] Start: 07-27-2022 End: 07-28-2022 Evaluation and management of inpatient DR DINH MARROQUIN Facility:[facility] Start: 07-12-2022 End: 07-12-[address] DINH MARROQUIN Facility:[facility] Start: 07-09-2022 End: 07-09-[address] IVORY GUTIERREZ Facility:[facility] Start: 07-06-2022 End: 07-06-[address] DINH MARROQUIN Facility:[facility] Start: 07-05-2022 End: 07-06-[address] DINH MARROQUIN Facility:[facility] Start: 06-11-2022 End: 06-12-[address] DINH MARROQUIN Facility:[facility] Start: 05-14-2022 End: 05-15-[address] DINH MARROQUIN Facility:[facility] Start: 04-24-2022 End: 04-25-[address] DINH MARROQUIN Facility:[facility] Start: 04-17-2022 End: 04-18-[address] EMERSON LISTED REQUEST Facility:[facility] Start: 04-16-2022 End: 04-16-[address] DINH MARROQUIN Facility:[facility] Start: 03-19-2022 End: 03-20-[address] DINH MARROQUIN Facility:[facility] Start: 03-12-2022 End: 03-13-[address] DINH MARROQUIN Facility:[facility] Start: 02-14-2022 End: 02-15-[address] DINH MARROQUIN Facility:[facility] Start: 01-12-2022 End: 01-13-[address] DINH MARROQUIN Facility:[facility] Start: 12-29-2021 End: 12-30-[address] BRANDI ANN Facility:[facility] Procedures Date Procedure Procedure Detail Performing Clinician Start: 07-26-2023 Antibody screen Chao Powers MD Work Phone: Start: 07-26-2023 Basic metabolic pane l calcium total Dinh Marroquin DO Work Phone: Start: 07-26-2023 HIV 1&2 AB/AG SCREEN (P24 AG) Not In System Ref Prov Start: 07-26-2023 Iaad ia hepatitis b surface antigen Not In System Ref Prov Start: 07-26-2023 Syphilis test non-treponemal antibody qual Not In System Ref Prov Start: 07-26-2023 TYPE AND SCREEN Not In System Ref Prov Start: 07-27-2022 Delivery of Products of Conception, External Approach DR BRANDI ANN Start: 07-27-2022 Drainage of Amniotic Fluid, Therapeutic from Products of Conception, Via Natural or Artificial Opening DR BRANDI ANN Start: 07-27-2022 Introduction of Othe r Hormone into Peripheral Vein, Percutaneous Approach DR BRANDI ANN Plan of Treatment Date Care Activity Detail Author Start: 10-22-2023 End: 10-22-2023 Patient encounter procedure [facility] Start: 04-26-2023 Influenza vaccination Influenza Vacc ine [facility] Start: 2011 Screening for malign ant neoplasm of cervix Pap Smear [facility] Start: 2009 DTaP,Tdap and Td Vaccines (1 - Tdap) DTaP,Tdap and Td Vaccines (1 - Tdap) [facility] Start: 2008 Adult BMI Screening Adult BMI Screen ing [facility] Start: 2002 Depression Screening Depression Scre ening [facility] Start: 2002 Tobacco Screening Tobacco Screening [facility] Immunizations Immunization Date Immunization Notes Care Provider Malachi hernández 09-08-2019 influenza virus vaccine, unspecified formulation Chao Ling MD Work Phone: [facility] Payers Date Payer Category Payer Private Health Insurance [employer] A ETNA POS [id number] 2017-Present [phone] [address] [place] [address] [id number] 1990 Unknown [id number] 2.840.1.114933.3.579.2.5 93 1990 Unknown [id number] 2.840.1.965850.3.579.2.5 93 1990 Unknown [id number] 2.16840.1.422634.3.579.2.5 93 1990 Unknown [id number] 2.16840.1.835156.3.579.2.5 93 1990 Unknown [id number] 2.16840.1.639711.3.579.2.5 93 1990 Unknown [id number] 2.16.840.1.197597.3.579.2.5 93 1990 Unknown [id number] 2.16.840.1.921502.3.579.2.5 93 1990 Unknown [id number] 2.16.840.1.998667.3.579.2.5 93 1990 Unknown [id number] 2.16.840.1.010830.3.579.2.5 93 1990 Unknown [id number] 2.16.840.1.421024.3.579.2.5 93 1990 Unknown [id number] 2.16.840.1.212461.3.579.2.5 93 1990 Unknown [id number] 2.16.840.1.252506.3.579.2.5 93 1990 Unknown [id number] 2.16.840.1.810101.3.579.2.5 93 1990 Unknown [id number] 2.16.840.1.456282.3.579.2.5 93 1990 Unknown [id number] 2.16.840.1.685322.3.579.2.5 93 1990 Unknown [id number] 2.16.840.1.025653.3.579.2.5 93 1990 Unknown [id number] 2.16.840.1.777378.3.579.2.5 93 1990 Unknown [id number] 2.16.840.1.122467.3.579.2.5 93 1990 Unknown [id number] 2.16.840.1.013136.3.579.2.1 259 1990 Unknown [id number] 2.16.840.1.359517.3.579.2.1 259 1990 Unknown [id number] 2.16.840.1.929967.3.579.2.1 259 1990 Unknown [id number] 2.16.840.1.296179.3.579.2.1 259 1990 Unknown [id number] 2.16.840.1.386266.3.579.2.1 259 1959 Private Health Insurance [id number] 1959 Unknown [id number] Unknown [id number] 2.16.840.1.255191.3.579.2.5 93 Social History Date Type Detail Facility Unknown if ever smoked [facility] Other Start: 10-06-2020 End: 10-04-2023 Sex Assigned At [facility] [employer] Other Start: 09-11-2019 Tobacco smoking stat [facility] [place] [facility] Start: 09-11-2019 Tobacco use and exposure [facility]ok[facility] Start: 10-04-2023 Alcohol intake [facility]-drinker (finding) [facility] Start: 10-06-2020 End: 10-04-2023 History of Social function [facility] [facility] Childcare Unknown [facility] Start: 05-30-2023 [facility] Start: 1990 Sex Assigned At Not on file [facility] Evaluation note 07-15-2023 Note Date & Type Note Facility 07-15-2023 Evaluation note Encounter Date Diagnosis Assessment Notes Jun, First trimester (ICD-10 - Z34.91) Continued followup w Dr. Marroquin. No further adipex. [facility] Other Evaluation note 06-14-2023 Note Date & Type Note Facility 06-14-2023 Evaluation note Encounter Date Diagnosis Assessment Notes May, Other obesity due to excess calories (ICD-10 - E66.09) Patient has clearly made a good lisa effort for several months on her own to lose weight with little success. Pt to start Adipex daily. Medication is a stimulant. May cause you to be jittery or constipated. Take in the morning, may also take stool softener daily as needed. Continue to eat a healthy well balanced diet and continue work-out regimine. Pt aware that this is not a cure for obesity but a tool used to help them during their weight loss plateau. Pt aware that they need to continue to work hard at weight loss or the weight will be regained. Side effects discussed and understood. Pt education printed and discussed. Pt notified of prescribing schedule with 30 day dispensing, no refills, for up to 12 weeks, with a 6 month break in-between treatments. Id SOB, CP, mood changes, tachycardia, HTN, headaches, blurred vision occur, go to ER and Follow-up with me immediately. May, Body mass index [BMI] 39.0-39.9, adult (ICD-10 - Z68.39) [facility] Other Evaluation note 05-16-2023 Note Date & Type Note Facility 05-16-2023 Evaluation note Encounter Date Diagnosis Assessment Notes Apr, Morbid (severe) obesity due to excess calories (ICD-10 - E66.01) Patient has clearly made a good lisa effort for several months on her own to lose weight with little success. Pt to start Adipex daily. Medication is a stimulant. May cause you to be jittery or constipated. Take in the morning, may also take stool softener daily as needed. Continue to eat a healthy well balanced diet and continue work-out regimine. Pt aware that this is not a cure for obesity but a tool used to help them during their weight loss plateau. Pt aware that they need to continue to work hard at weight loss or the weight will be regained. Side effects discussed and understood. Pt education printed and discussed. Pt notified of prescribing schedule with 30 day dispensing, no refills, for up to 12 weeks, with a 6 month break in-between treatments. Id SOB, CP, mood changes, tachycardia, HTN, headaches, blurred vision occur, go to ER and Follow-up with me immediately. Apr, Body mass index [BMI] 40.0-44.9, adult (ICD-10 - Z68.41) [facility] Other Evaluation note 04-15-2023 Note Date & Type Note Facility 04-15-2023 Evaluation note Encounter Date Diagnosis Assessment Notes Mar, Allergic rhinitis due to animal hair and dander (ICD-10 - J30.81) Will treat as allergy related at this time based on PE findings. Therefore, no abx is indicated for tx. Supportive care as directed. Daily flonase as directed. Continue with daily antihistamine. Rest and push fluids. Pt denied school or work note. If coughing patient may take age appropriate cough medicine. Pt to f/u with pcp as needed for persistent or recurrent sx. Pt understood and agreed to treatment plan. Mar, Morbid (severe) obesity due to excess calories (ICD-10 - E66.01) Patient has clearly made a good lisa effort for several months on her own to lose weight with little success. Pt to start Adipex daily. Medication is a stimulant. May cause you to be jittery or constipated. Take in the morning, may also take stool softener daily as needed. Continue to eat a healthy well balanced diet and continue work-out regimine. Pt aware that this is not a cure for obesity but a tool used to help them during their weight loss plateau. Pt aware that they need to continue to work hard at weight loss or the weight will be regained. Side effects discussed and understood. Pt education printed and discussed. Pt notified of prescribing schedule with 30 day dispensing, no refills, for up to 12 weeks, with a 6 month break in-between treatments. Id SOB, CP, mood changes, tachycardia, HTN, headaches, blurred vision occur, go to ER and Follow-up with me immediately. Mar, Body mass index [BMI] 40.0-44.9, adult (ICD-10 - Z68.41) [facility] Other History general Narrative - Reported Note Date & Type Note Facility History general Narrative - Reported Type Surgical History T & A 2009 Surgical History Gallbladder 2012 [facility] Other History general Narrative - Reported Note Date & Type Note Facility History general Narrative - Reported Type Surgical History T & A 2009 Surgical History Gallbladder 2012 Hospitalization History see surgical hx [facility] Other History general Narrative - Reported Note Date & Type Note Facility History general Narrative - Reported Type Medical History Allergic rhinitis du e to animal hair and dander Medical History Morbid (severe) obes ity due to excess calories Medical History Body mass index (BMI ) of 40.0 to 44.9 in adult Surgical History T & A 2009 Surgical History Gallbladder 2012 Hospitalization History see surgical hx [facility] Other Instructions Note Date & Type Note Facility Instructions Not on filedocumented in this en counter [facility] Summary Purpose Family History No Family History Records FoundNo Family History Records FoundNo Family History Records FoundNo Family History Records Found Advance Directives No Advanced Directives Records FoundNo Advanced Directives Records FoundNo Advanced Directives Records FoundNo Advanced Directives Records Found Additional Source Comments INFORMATION SOURCE (unrecogn ized section and content) DATE CREATED AUTHOR 03/11/2020 [facility] DATE CREATED AUTHOR AUTHOR'S ORGANIZ ATION 08/04/2022 [facility] DATE CREATED AUTHOR AUTHOR'S ORGANIZ ATION 11/14/2023 [facility] EPIC DATE CREATED AUTHOR AUTHOR'S ORGANIZ ATION 11/19/2023 [facility] REASON FOR VISIT (unrecogniz ed section and content) ESTABLISH CARE1 month Follow up1 month Follow up1 month Follow up Care Teams (unrecognized sec tion and content) Position Classification Specialist Relationship Specialty Start Date End Date Pola Osei, ENGLISH COMPOSITION TEACHER-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 This clinical summary was aggregated from multiple sources. Caution should be exercised in using it in the provision of clinical care. This summary normalizes information from multiple sources, and as a consequence, information in this document may materially change the coding, format and clinical context of patient data. In addition, data may be omitted in some cases. CLINICAL DECISIONS SHOULD BE BASED ON THE PRIMARY CLINICAL RECORDS. [facility] [employer] [facility]. provides no warranty or guarantee of the accuracy or completeness of information in this document.
[2023-11-19 08:04] LABS: Basophils Percent Auto 0.3 % (0.2-2.0); Eosinophils Absolute Auto 0.1 10^3/uL (0.0-0.7); Hemoglobin 10.8 g/dL (12.0-16.0); Immature Granulocytes Abs Auto 0.03 10^3/uL (0.00-0.03); Immature Granulocytes Pct Auto 0.5 % (0.0-0.5); Lymphocytes Absolute Auto 2.2 10^3/uL (1.2-3.8); Lymphocytes Percent Auto 33.2 % (20.5-60.0); Mean Corpuscular HGB Conc 31.8 g/dL (29.9-35.2); Mean Corpuscular Hemoglobin 25.7 pg (26.7-34.0); Mean Platelet Volume 10.7 fL (9.5-13.5); Monocytes Absolute Auto 0.5 10^3/uL (0.3-0.8); Neutrophils Absolute Auto 3.7 10^3/uL (1.4-6.5); Platelet Count 252 10^3/uL (150-450); White Blood Count 6.5 10^3/uL (4.0-11.0)
[2023-11-19 08:18] LABS: Glucose 1 Hour 101 mg/dL (<130)
== END 2023-11-19 06:54 | disposition home or self-care (01) ==
LOC: LAB 06:54
PROVIDERS: PCP Family Medicine; Visit Provider Obstetrics & Gynecology
DX: Z13.1 Encounter for screening for diabetes mellitus (principal)
CPT/HCPCS: 36415; 82950; 85025

== ENCOUNTER 2023-12-19 07:41 | Outpatient (OUT) | payer OTHER, SELFPAY ==
--- OUTSIDE RECORDS SUMMARY | 2023-12-19 07:43 | XMS_ITS | CCD ---
Author Organization [facility] Care Team Providers Care Secondary Teacher Name Role Phone WEST, DR BRANDI Quinonez Consulting Unavailable LOPEZ, DR TAO Admitting Unavailable LOPEZ, DR TAO Attending Unavailable ODE, MARSHALL Primary Care Unavailable LOPEZ, DR TAO Consulting Unavailable LOPEZ, DR TAO Consulting Unavailable LOPEZ, DR TAO Attending Unavailable LOPEZ, DR TAO Admitting Unavailable REQUEST, DR KI LISTED Primary Care Unavaila ble LOPEZ, DR TAO Consulting Unavailable LOPEZ, DR TAO Admitting Unavailable LOPEZ, DR TAO Attending Unavailable REQUEST, DR NONE LISTED Primary Care Unavaila ble ZIEBER, DR FOUZIA Schilling Consulting Unavailable LOPEZ, DR TAO Consulting Unavailable LOPEZ, DR TAO Attending Unavailable LOPEZ, DR TAO Admitting Unavailable REQUEST, DR NONE LISTED Primary Care Unavaila ble ZIEBER, DR FOUZIA Schilling Consulting Unavailable LOPEZ, DR TAO Consulting Unavailable LOPEZ, DR TAO Attending Unavailable LOPEZ, DR TAO Admitting Unavailable REQUEST, DR EMERSON LISTED Primary Care Unavaila ble LOPEZ, DR TAO Consulting Unavailable LOPEZ, DR TAO Attending Unavailable LOPEZ, DR TAO Admitting Unavailable REQUEST, DR NONE LISTED Primary Care Unavaila ble AMY, YANET DUNBAR Consulting Unava ilable LOPEZ, DR TAO Procedure Practitioner Unavailab le LOPEZ, DR TAO Consulting Unavailable LOPEZ, DR TAO Attending Unavailable LOPEZ, DR TAO Admitting Unavailable REQUEST, NONE LISTED Primary Care Unavaila ble ZIEBER, DR FOUZIA Schilling Consulting Unavailable LOPEZ, DR TAO Consulting Unavailable LOPEZ, DR TAO Admitting Unavailable LOPEZ, DR TAO Attending Unavailable REQUEST, DR NONE LISTED Primary Care Unavaila ble LOPEZ, DR TAO Consulting Unavailable LOPEZ, DR TAO Attending Unavailable REQUEST, DR NONE LISTED Primary Care Unavaila ble LOPEZ, DR TAO Admitting Unavailable ZIEBER, DR FOUZIA Schilling Consulting Unavailable LPOEZ, DR TAO Consulting Unavailable LOPEZ, DR TAO Attending Unavailable LOPEZ, DR TAO Admitting Unavailable REQUEST, DR NONE LISTED Primary Care Unavaila ble LOPEZ, DR TAO Consulting Unavailable LOPEZ, DR TAO Attending Unavailable REQUEST, NONE LISTED Primary Care Unavaila ble LOPEZ, DR TAO Admitting Unavailable REQUEST, NONE LISTED Primary Care Unavaila ble WEST, DR BRANDI Quinonez Consulting Unavailable LOPEZ, DR TAO Attending Unavailable LOPEZ, DR TAO Admitting Unavailable LOPEZ, DR TAO Consulting Unavailable LOPEZ, DR TAO Consulting Unavailable JENNIFER, CT Admitting Unavailable JENNIFER, CT Attending Unavailable REQUEST, DR NONE LISTED Primary Care Unavaila ble ZIEBER, DR FOUZIA Schilling Consulting Unavailable KARASIK, DR DODSON Admitting Unavailable KARASIK, DR DODSON Consulting Unavailable KARASIK, DR DODSON Attending Unavailable REQUEST, DR NONE LISTED Primary Care Unavaila ble WEST, DR BRANDI Quinonez Consulting Unavailable LOPEZ, DR TAO Consulting Unavailable LOPEZ, DR TAO Admitting Unavailable LOPEZ, DR TAO Attending Unavailable REQUEST, DR NONE LISTED Primary Care Unavaila ble LOPEZ, DR TAO Consulting Unavailable REQUEST, NONE LISTED Primary Care Unavaila ble LOPEZ, DR TAO Admitting Unavailable LOPEZ, DR TAO Attending Unavailable LOPEZ, DR TAO Consulting Unavailable LOPEZ, DR TAO Attending Unavailable LOPEZ, DR TAO Admitting Unavailable REQUEST, DR NONE LISTED Primary Care Unavaila ble LOPEZ, DR TAO Consulting Unavailable LOPEZ, DR TAO Attending Unavailable LOPEZ, DR TAO Admitting Unavailable REQUEST, NONE LISTED Primary Care Unavaila ble ZIEBER, DR FOUZIA Schilling Consulting Unavailable LOPEZ, DR TAO Attending Unavailable REQUEST, NONE LISTED Primary Care Unavaila ble LOPEZ, DR TAO Admitting Unavailable Chery Aranda Unavailable [facility] RADIOLOGIC TECHNOLOGISTPola Primary Care Provider COLIN BOWLING Referring Unavailable DINH MARROQUIN Primary Care Unavailable LOPEZ, DINH Attending Unavailable GENEFRIEDA JOYNER Attending Unavailable DINH MARROQUIN Attending Unavailable DINH MARROQUIN Attending Unavailable FRIEDA MILLS Attending Unavailable DINH MARROQUIN Attending Unavailable Medications Current Medications Medication Drug Class(es) [...] Active Start: 05-16-2023 take 1 capsule by [facility] every twenty-four hours Phentermine HCl 37.5 MG 1 capsule Orally Once a day for 30 days Apr, Active Start: 04-15-2023 take 1 capsule by [facility] every twenty-four hours Phentermine HCl 37.5 MG 1 capsule Orally Once a day for 30 days Mar, Active [id number] ac id 29 mg iron- 1 mg [...] 10-26-2023 Tatum tp. B1 <1:10 Normal <1:10 [facility] Comment on above: Performed By: #### C MVG, LUPPRO, AT3A, PROCAC, PROSAC, CMVM, CMIS, TOXOG, TOXOM, HOCYS #### [facility] [address] [place], [place] [phone] Agricultural Services Director: Tanvir Macias MD #### APTMUT, AF5MUT, AMTHFR, ACOXA9, APARVP, ACOXAB #### [facility] [address], [place] [id number] Agricultural Services Director: MD Tatum Santoyo B2 1:20 Normal <1:10 [facility] Comment on above: Performed By: #### C MVG, LUPPRO, AT3A, PROCAC, PROSAC, CMVM, CMIS, TOXOG, TOXOM, HOCYS #### [facility] [address] [place] [address] Agricultural Services Director: Tanvir Macias MD #### APTMUT, AF5MUT, AMTHFR, ACOXA9, APARVP, ACOXAB #### [facility] [address], [place] [id number] Agricultural Services Director: MD Tatum Santoyo B3 1:10 Normal <1:10 [facility] Comment on above: Performed By: #### C MVG, LUPPRO, AT3A, PROCAC, PROSAC, CMVM, CMIS, TOXOG, TOXOM, HOCYS #### [address] [address] Agricultural Services Director: Tanvir Macias MD #### APTMUT, AF5MUT, AMTHFR, ACOXA9, APARVP, ACOXAB #### [facility] [address], [place] [id number] Agricultural Services Director: MD Tatum Santoyo B4 1:320 Abnormal <1:10 [facility] Comment on above: Performed By: #### C MVG, LUPPRO, AT3A, PROCAC, PROSAC, CMVM, CMIS, TOXOG, TOXOM, HOCYS #### [facility] [address] [place] [address] Agricultural Services Director: Tanvir Macias MD #### APTMUT, AF5MUT, AMTHFR, ACOXA9, APARVP, ACOXAB #### [facility] [address] [place] [address] Agricultural Services Director: MD Tatum Santoyo. B5 <1:10 Normal <1:10 [facility] Comment on above: Performed By: #### C MVG, LUPPRO, AT3A, PROCAC, PROSAC, CMVM, CMIS, TOXOG, TOXOM, HOCYS #### [address] [phone] Agricultural Services Director: Tanvir Mcaias MD #### APTMUT, AF5MUT, AMTHFR, ACOXA9, APARVP, ACOXAB #### [address] [address] Agricultural Services Director: MD Tatum Santoyo. B6 <1:10 Normal <1:10 [facility] Comment on above: Result Comment: (NOT E) INTERPRETIVE INFORMATION: Coxsackie B Virus Single positive antibody titers of greater than or equal to 1:80 may indicate past or current infection. Sero- conversion or an increase in titers between acute and convalescent sera of at least fourfold is considered strong evidence of current or recent infection. Performed By: [place] [id number] Mountain [employer] Guide: Nadeem Mcarthur MD, PhD CLIA Number: [id number] Performed By: #### C MVG, LUPPRO, AT3A, PROCAC, PROSAC, CMVM, CMIS, TOXOG, TOXOM, HOCYS #### [place] [id number] Agricultural Services Director: Tanvir Macias MD #### APTMUT, AF5MUT, AMTHFR, ACOXA9, APARVP, ACOXAB #### [address] [phone] Agricultural Services Director: Enrique Arthur MD Factor V Mutationon 10-22-19 24 F 5 SPECIMEN Whole Blood Normal [facility] Comment on above: Performed By: #### C MVG, LUPPRO, AT3A, PROCAC, PROSAC, CMVM, CMIS, TOXOG, TOXOM, HOCYS #### [facility] [address] [place] [address] Agricultural Services Director: Tanvir Macias MD #### APTMUT, AF5MUT, AMTHFR, ACOXA9, APARVP, ACOXAB #### [facility] [address] [place] [address] Agricultural Services Director: Enrique Arthur MD FACTOR 5 MUTATION Negative Normal [facility] Comment on above: Result Comment: (NOT E) Indication for testing: Assess genetic risk for thrombosis. NEGATIVE: The factor V Leiden variant, c.1601G>A; p.Cer105Uam, was not detected. This does not exclude [...] function in the F5 gene variant c.1601G>A (p.Jpj983Csw). Legacy nomenclature: [id number] (1691G>A) CLINICAL SENSITIVITY: 20-50 percent of individuals with an isolated VTE have the FVL variant. METHODOLOGY: Polymerase chain reaction and fluorescence monitoring. ANALYTICAL SENSITIVITY AND SPECIFICITY: 99 percent. LIMITATIONS: Diagnostic errors can occur due to rare sequence variations. F5 gene mutations, other than p.Awa577Nbr, will not be detected. This test was developed and its performance characteristics determined by [facility]. It has not been cleared or approved by the [place] Food and Drug Administration. This test was performed in a CLIA certified laboratory and is intended for clinical purposes. Counseling and informed consent are recommended for genetic testing. Consent forms are available online. Performed By: [facility] [address] [place] [address] Mountain Bike Guide: Nadeem Mcarthur MD, PhD CLIA Number: [id number] Performed By: #### C MVG, LUPPRO, AT3A, PROCAC, PROSAC, CMVM, CMIS, TOXOG, TOXOM, HOCYS #### [place] [address] Agricultural Services Director: Tanvir Macias MD #### APTMUT, AF5MUT, AMTHFR, ACOXA9, APARVP, ACOXAB #### [place] [phone] Agricultural Services Director: Enrique Arthur MD Coxsackie A9 Titeron 024 Coxsackie A9 Titer <1:8 Normal <1:8 [facility] Comment on above: Result Comment: (NOT E) INTERPRETIVE INFORMATION: Coxsackie A Serotype 9 Titer Single positive antibody titers of greater than 1:32 may indicate past or current infection. Seroconversion or an increase in titers between acute and convalescent sera of at least fourfold is considered strong evidence of current or recent infection. Performed By: [facility] [address] [place], [place] [id number] Mountain Bike Guide: Nadeem Mcarthur MD, PhD CLIA Number: [id number] Performed By: #### C MVG, LUPPRO, AT3A, PROCAC, PROSAC, CMVM, CMIS, TOXOG, TOXOM, HOCYS #### [address] [address] Agricultural Services Director: Tanvir Macias MD #### APTMUT, AF5MUT, AMTHFR, ACOXA9, APARVP, ACOXAB #### [facility] [address], [place] [id number] Agricultural Services Director: Enrique Arthur MD MTHFR Gene Mutationon 2023 MTHFR 1286 A>C Mut Negative Normal [facility] Comment on above: Performed By: #### C MVG, LUPPRO, AT3A, PROCAC, PROSAC, CMVM, CMIS, TOXOG, TOXOM, HOCYS #### [address] [address] Agricultural Services Director: Tanvir Macias MD #### APTMUT, AF5MUT, AMTHFR, ACOXA9, APARVP, ACOXAB #### [facility] [address], [place] [id number] Agricultural Services Director: Enrique Arthur MD MTHFR 655C>T Mut Heterozygous Normal [facility] Comment on above: Performed By: #### C MVG, LUPPRO, AT3A, PROCAC, PROSAC, CMVM, CMIS, TOXOG, TOXOM, HOCYS #### [address] [address] Agricultural Services Director: Tanvir Macias MD #### APTMUT, AF5MUT, AMTHFR, ACOXA9, APARVP, ACOXAB #### [facility] [address], [place] [id number] Agricultural Services Director: Enrique Arthur MD MTHFR Interpretation See Note Normal [facility] Comment on above: Result Comment: (NOT E) Indication for testing: Determine genetic contribution to hyperhomocysteinemia. Heterozygous MTHFR c.665C>T: One copy of the MTHFR variant c.665C>T (previously designated C677T) was detected; the c.1286A>C (previously designated D7313Q) variant was not identified. The common variant [...] has an effect on cardiovascular disease. The [place] [employer] Practice Guidelines indicate [...] a contributing factor to hyperhomocysteinemia. Variants Tested: c.665C>T(p.Fjp784Zuq) and c.1286A>C(p.Ije074Cbd). (legacy names C677T and G5406W, respectively). Clinical Sensitivity: Undefined; hyperhomocysteinemia is caused [...] developed and its performance characteristics determined by [facility]. It has not been cleared or approved by the [place] Food and Drug Administration. This test was performed in a CLIA certified laboratory and is intended for clinical purposes. Counseling and informed consent are recommended for genetic testing. Consent forms are available online. Performed By: [facility] [address] [place] [address] Mountain Bike Guide: Nadeem Mcarthur MD, PhD CLIA Number: [id number] Performed By: #### C MVG, LUPPRO, AT3A, PROCAC, PROSAC, CMVM, CMIS, TOXOG, TOXOM, HOCYS #### [facility] [address] [place] [address] Agricultural Services Director: Tanvir Macias MD #### APTMUT, AF5MUT, AMTHFR, ACOXA9, APARVP, ACOXAB #### [facility] [address] [place] [address] Agricultural Services Director: Enrique Arthur MD MTHFR SPECIMEN Whole Blood Normal [facility] Comment on above: Performed By: #### C MVG, LUPPRO, AT3A, PROCAC, PROSAC, CMVM, CMIS, TOXOG, TOXOM, HOCYS #### [address] [address] Agricultural Services Director: Tanvir Macias MD #### APTMUT, AF5MUT, AMTHFR, ACOXA9, APARVP, ACOXAB #### [facility] [address], [place] [phone] Agricultural Services Director: Enrique Arthur MD PT Mutation [id number] 10-21-19 24 PT [id number] VARIANT Negative Normal [facility] Comment on above: Result Comment: (NOT E) Indication for testing: Assess genetic risk for thrombosis. NEGATIVE: The Factor II, prothrombin C41637A mutation, was not detected. Other causes of [...] Quintana, Ph.D. BACKGROUND INFORMATION: Prothrombin (F2) c.*97G>A (D64051R) Pathogenic Variant CHARACTERISTICS: The Factor II, c.*97G>A (E83166V) pathogenic variant is a common genetic risk [...] CAUSE: Homozygosity or heterozygosity for F2 c.*97G>A (M10796J). PATHOGENIC VARIANT TESTED: F2 c.*97G>A (D36052B). CLINICAL SENSITIVITY FOR VENOUS THROMBOSIS: Approximately 10 percent. METHODOLOGY: Polymerase chain reaction and fluorescence monitoring. ANALYTICAL SENSITIVITY AND SPECIFICITY: 99 percent. LIMITATIONS: Diagnostic errors can occur due to rare sequence variations. F2 gene variants, other than c.*97G>A (E82742Z), will not be detected. This test was developed and its performance characteristics determined by [facility]. It has not been cleared or approved by the [place] Food and Drug Administration. This test was performed in a CLIA certified laboratory and is intended for clinical purposes. Counseling and informed consent are recommended for genetic testing. Consent forms are available online. Performed By: [facility] [address] [place] [address] Mountain Bike Guide: Nadeem Mcarthur MD, PhD CLIA Number: [id number] Performed By: #### C MVG, LUPPRO, AT3A, PROCAC, PROSAC, CMVM, CMIS, TOXOG, TOXOM, HOCYS #### [address] [phone] Agricultural Services Director: Tanvir Macias MD #### APTMUT, AF5MUT, AMTHFR, ACOXA9, APARVP, ACOXAB #### [facility] [address] [place] [address] Agricultural Services Director: Enrique Arthur MD PT PCR SPECIMEN Whole Blood Normal [facility] Comment on above: Performed By: #### C MVG, LUPPRO, AT3A, PROCAC, PROSAC, CMVM, CMIS, TOXOG, TOXOM, HOCYS #### [facility] [place], [place] [phone] Agricultural Services Director: Tanvir Macias MD #### APTMUT, AF5MUT, AMTHFR, ACOXA9, APARVP, ACOXAB #### [facility] [address] [place] [address] Agricultural Services Director: Enrique Arthur MD Parvovirus B19 Panelon 10-21 Parvovirus IgG B19 1.80 IV High <=0.90 [facility] Comment on above: Result Comment: (NOT [...] PROSAC, CMVM, CMIS, TOXOG, TOXOM, HOCYS #### [facility] [place], [place] [phone] Agricultural Services Director: Tanvir Macias MD #### APTMUT, AF5MUT, AMTHFR, ACOXA9, APARVP, ACOXAB #### [facility] [address] [place] [address] Agricultural Services Director: Enrique Arthur MD Parvovirus IgM B19 0.12 IV Normal <=0.90 [facility] Comment on above: Result Comment: (NOT E) INTERPRETIVE INFORMATION: Parvovirus B19 Antibody, IgM EFFECTIVE 07/04/2023 REFERENCE INTERVAL CHANGE Due to reagent kit x ray consultant recall, an alternate kit has been validated and implemented by [facility]. The following Reference Interval applies to [...] levels of specific IgM antibodies. Performed By: [facility] [address] [place] [address] Mountain Bike Guide: Nadeem Mcarthur MD, PhD CLIA Number: [id number] Performed By: #### C MVG, LUPPRO, AT3A, PROCAC, PROSAC, CMVM, CMIS, TOXOG, TOXOM, HOCYS #### [facility] [address] [place] [address] Agricultural Services Director: Tanvir Macias MD #### APTMUT, AF5MUT, AMTHFR, ACOXA9, APARVP, ACOXAB #### [facility] [address] [place] [address] Agricultural Services Director: Enrique Arthur MD Antithrombin III [place] 10-18 Antithrombin III Act 106 % Normal 83-122 [facility] Comment on above: Result Comment: Patients receiving Hirudin may have a falsely decreased Antitrombin III Activity. Performed By: #### C MVG, LUPPRO, AT3A, PROCAC, PROSAC, CMVM, CMIS, TOXOG, TOXOM, HOCYS #### [facility] [address] [place] [phone] Agricultural Services Director: Tanvir Macias MD #### APTMUT, AF5MUT, AMTHFR, ACOXA9, APARVP, ACOXAB #### [facility] [address] [place] [phone] Agricultural Services Director: Enrique Arthur MD Lupus Anticoagulanton 2023 Anticardiolipin IgA 2.4 APL Normal 0.0-14.0 [facility] Comment on above: Result Comment: Reference Range: <14.0 Negative 14.0-20.0 Equivocal >20.0 Positive When results are Equivocal, it is recommended to retest after 4-6 weeks. Performed By: #### C MVG, LUPPRO, AT3A, PROCAC, PROSAC, CMVM, CMIS, TOXOG, TOXOM, HOCYS #### [address] [phone] Agricultural Services Director: Tanvir Macias MD #### APTMUT, AF5MUT, AMTHFR, ACOXA9, APARVP, ACOXAB #### [address] [address] Agricultural Services Director: Enrique Arthur MD Anticardiolipin IgG 2.8 GPL Normal 0.0-10.0 [facility] Comment on above: Result Comment: Reference Range: <10.0 Negative 10.0-40.0 Equivocal >40.0 Positive Performed By: #### C MVG, LUPPRO, AT3A, PROCAC, PROSAC, CMVM, CMIS, TOXOG, TOXOM, HOCYS #### [address] [phone] Agricultural Services Director: Tanvir Macias MD #### APTMUT, AF5MUT, AMTHFR, ACOXA9, APARVP, ACOXAB #### [facility] [address] [place] [address] Agricultural Services Director: Enrique Arthur MD Anticardiolipin IgM <0.8 Normal 0.0-10.0 [facility] Comment on above: Result Comment: Reference Range: <10.0 Negative 10.0-40.0 Equivocal >40.0 Positive Performed By: #### C MVG, LUPPRO, AT3A, PROCAC, PROSAC, CMVM, CMIS, TOXOG, TOXOM, HOCYS #### [address] [phone] Agricultural Services Director: Tanvir Macias MD #### APTMUT, AF5MUT, AMTHFR, ACOXA9, APARVP, ACOXAB #### [facility] [address] [place] [address] Agricultural Services Director: Enrique Arthur MD Dilute [place] Viper Negative [facility] Comment on above: Performed By: #### C MVG, LUPPRO, AT3A, PROCAC, PROSAC, CMVM, CMIS, TOXOG, TOXOM, HOCYS #### [address] [phone] Agricultural Services Director: Tanvir Macias MD #### APTMUT, AF5MUT, AMTHFR, ACOXA9, APARVP, ACOXAB #### [facility] [address] [place] [address] Agricultural Services Director: Enrique Arthur MD Miscellaneouson 10-18-2023 Send Out Report [facility] [id number] Normal [facility] Comment on above: Result Comment: UNIT Y Performed By: #### C MVG, LUPPRO, AT3A, PROCAC, PROSAC, CMVM, CMIS, TOXOG, TOXOM, HOCYS #### [address] [address] Agricultural Services Director: Tanvir Macias MD #### APTMUT, AF5MUT, AMTHFR, ACOXA9, APARVP, ACOXAB #### [address] [phone] Agricultural Services Director: Enrique Arthur MD Protein C Activityon 024 Protein C Activity 91 % Normal >80 [facility] Comment on above: Result Comment: Patients on [...] PROSAC, CMVM, CMIS, TOXOG, TOXOM, HOCYS #### [facility] [address] [place] [phone] Agricultural Services Director: Tanvir Macias MD #### APTMUT, AF5MUT, AMTHFR, ACOXA9, APARVP, ACOXAB #### [address] [phone] Agricultural Services Director: Enrique Arthur MD Protein S Activityon 024 Protein S Activity 79 % Normal 59-130 [facility] Comment on above: Result Comment: Patients on [...] PROSAC, CMVM, CMIS, TOXOG, TOXOM, HOCYS #### [facility] [address] [place] [address] [phone] Agricultural Services Director: Tanvir Macias MD #### APTMUT, AF5MUT, AMTHFR, ACOXA9, APARVP, ACOXAB #### [facility] [address] Agricultural Services Director: Enrique Arthur MD Toxoplasma Ab,IgGon 10-18-19 24 Toxoplasma Ab,IgG 1.2 IU/mL Normal [facility] Comment on above: Result Comment: REFERENCE [...] PROSAC, CMVM, CMIS, TOXOG, TOXOM, HOCYS #### [facility] [address] [place] [address] Agricultural Services Director: Tanvir Macias MD #### APTMUT, AF5MUT, AMTHFR, ACOXA9, APARVP, ACOXAB #### [address] [phone] Agricultural Services Director: Enrique Arthur MD Toxoplasma Ab,IgMon 10-18-19 24 Toxoplasma Ab,IgM 0.56 Index Normal [facility] Comment on above: Result Comment: REFERENCE RANGE: <0.90 NON-REACTIVE 0.90 TO 0.99 INDETERMINANT >=1.00 REACTIVE Performed By: #### C MVG, LUPPRO, AT3A, PROCAC, PROSAC, CMVM, CMIS, TOXOG, TOXOM, HOCYS #### [facility] [address] [place] [address] Agricultural Services Director: Tanvir Macias MD #### APTMUT, AF5MUT, AMTHFR, ACOXA9, APARVP, ACOXAB #### [facility] [address] [place] [address] Agricultural Services Director: Enrique Arthur MD CMV Ab,IgGon 10-17-2023 CMV Ab,IgG 523.0 High <0.5 [facility] Comment on above: Result Comment: Reference Range: [...] PROSAC, CMVM, CMIS, TOXOG, TOXOM, HOCYS #### [facility] [address] [place] [address] Agricultural Services Director: Tanvir Macias MD #### APTMUT, AF5MUT, AMTHFR, ACOXA9, APARVP, ACOXAB #### [facility] [address] [place] [address] Agricultural Services Director: Enrique Arthur MD CMV Ab,IgMon 10-17-2023 CMV Ab,IgM 0.2 Normal <0.7 [facility] Comment on above: Result Comment: Reference Range: [...] PROSAC, CMVM, CMIS, TOXOG, TOXOM, HOCYS #### [facility] [address] [place] [address] Agricultural Services Director: Tanvir Macias MD #### APTMUT, AF5MUT, AMTHFR, ACOXA9, APARVP, ACOXAB #### [facility] [address] [place] [address] Agricultural Services Director: Enrique Arthur MD Homocysteineon 10-17-2023 Homocysteine 5.7 umol/L Normal <15.0 [facility] Comment on above: Performed By: #### C MVG, LUPPRO, AT3A, PROCAC, PROSAC, CMVM, CMIS, TOXOG, TOXOM, HOCYS #### [address] [address] Agricultural Services Director: Tanvir Macias MD #### APTMUT, AF5MUT, AMTHFR, ACOXA9, APARVP, ACOXAB #### [facility] [address] [place] [address] Agricultural Services Director: Enrique Arthur MD Lupus Anticoagulanton 2023 aPTT Coag (Bld) [Time] 27.6 s Normal 23.0-36.5 [facility] Comment on above: Result Comment: IV Heparin Therapy Range: 66.0-92.0 sec Performed By: #### C MVG, LUPPRO, AT3A, PROCAC, PROSAC, CMVM, CMIS, TOXOG, TOXOM, HOCYS #### [facility] [address] [place] [address] Agricultural Services Director: Tanvir Macias MD #### APTMUT, AF5MUT, AMTHFR, ACOXA9, APARVP, ACOXAB #### [facility] [address] [place] [address] Agricultural Services Director: Enrique Arthur MD INR Coag (PPP) [Relative time] 1.0 {INR} Normal [facility] Comment on above: Result Comment: Therapeutic Range: Moderate Anticoagulant Intensity: INR = 2.0-3.0 High Anticoagulant Intensity: INR = 2.5-3.5 Performed By: #### C MVG, LUPPRO, AT3A, PROCAC, PROSAC, CMVM, CMIS, TOXOG, TOXOM, HOCYS #### [facility] [address] [place] [address] [phone] Agricultural Services Director: Tanvir Macias MD #### APTMUT, AF5MUT, AMTHFR, ACOXA9, APARVP, ACOXAB #### [facility] [address] [place] [address] Agricultural Services Director: Enrique Arthur MD PT Coag (PPP) [Time] 13.5 s Normal 11.7-14.9 [facility] Comment on above: Performed By: #### C MVG, LUPPRO, AT3A, PROCAC, PROSAC, CMVM, CMIS, TOXOG, TOXOM, HOCYS #### [facility] [address] [place] [address] [id number] Agricultural Services Director: Tanvir Macias MD #### APTMUT, AF5MUT, AMTHFR, ACOXA9, APARVP, ACOXAB #### [facility] [address] [place] [address] Agricultural Services Director: Enrique Arthur MD Basic Metabolic Panelon 12-0 Glucose [Mass/Vol] 97 mg/dL [facility] CBC without diffOrdered By: Mayra Victoria on 07-26-2023 Hematocrit (Bld) [Volume fraction] 34.8 % [facility] Hemoglobin (Bld) [Mass/Vol] 11.3 g/dL [facility] Platelets (Bld) [#/Vol] 292 10*3/uL [facility] Rbc Mcv (Fl) By Automated Count 83.5 [facility] HIV 1&2 AB/AG Screen (P24 AG )on 07-26-2023 HIV 1&2 AB/AG Non-Reactive [facility] Hemoglobin A1con 07-26-2023 HbA1c (Bld) [Mass fraction] 5.0 % 4.0 - 6.0 % [facility] Hepatitis B surface antigeno n 07-26-2023 Hepatitis B Surface Antigen Negative [facility] No Panel InformationOrdered By: Mayra Victoria on 07-26-2023 [facility] Rubella IGG immune statuson 07-26-2023 Rubella immune IgG 5.26 [facility] Syphilis Total(Unknown Syphi lis Status)on 07-26-2023 Syphilis Non-Reactive [facility] TSHon 07-26-2023 TSH Qn 1.99 m[IU]/L [facility] Type and screenon 07-26-2023 Abo/Rh(D) Positive [facility] CBC AUTO DIFFon 07-28-2022 BASO # 0.0 103/ul Normal 0.0-0.1 [facility] Comment on above: Performed By: #### H CVPCRR #### [facility] [address] [address] [address] Carleen Underwood Basophils/100 WBC (Bld) 0.3 % Normal 0.2-2.0 [facility] Comment on above: Performed By: #### H CVPCRR #### [facility] [address] [place] [address] Dr. Carleen Underwood EO # 0.2 103/ul Normal 0.0-0.7 [facility] Comment on above: Performed By: #### H CVPCRR #### [facility] [address] [address] [address] Carleen Underwood Eosinophils/100 WBC (Bld) 1.5 % Normal 0.9-7.0 [facility] Comment on above: Performed By: #### H CVPCRR #### [facility] [address] [address] [address] Carleen Underwood Erythrocyte distribution width (RBC) [Ratio] 14.9 % Normal 11.0-15.0 [facility] Comment on above: Performed By: #### H CVPCRR #### [facility] [address] [place] [address] Dr. Carleen Underwood Hematocrit (Bld) [Volume fraction] 30.7 % Critically low 36.0-48.0 [facility] Comment on above: Performed By: #### H CVPCRR #### [facility] [address] [place] [address] Dr. Carleen Underwood Hemoglobin (Bld) [Mass/Vol] 9.4 g/dL Critically low 12.0-16.0 [facility] Comment on above: Performed By: #### H CVPCRR #### [facility] [address] [place] [address] Dr. Carleen Underwood IG # 0.07 10e3/ul Critically high 0.00-0.03 [facility] Comment on above: Performed By: #### H CVPCRR #### [facility] [address] [place] [address] Dr. Carleen Underwood IG % 0.6 % Critically high 0.0-0.5 [facility] Comment on above: Performed By: #### H CVPCRR #### [facility] [address] [place] [address] Dr. Carleen Underwood LYMPH # 2.7 103/ul Normal 1.2-3.8 [facility] Comment on above: Performed By: #### H CVPCRR #### [facility] [address] [place] [address] Dr. Carleen Underwood Lymphocytes/100 WBC (Bld) 24.1 % Normal 20.5-60.0 [facility] Comment on above: Performed By: #### H CVPCRR #### [facility] [address] [place] [address] Dr. Carleen Underwood MANUAL DIFF REQ NO Normal [facility] Comment on above: Performed By: #### H CVPCRR #### [facility] [address] [place] [address] Dr. Carleen Underwood MCH (RBC) [Entitic mass] 23.3 pg Critically low 26.7-34.0 [facility] Comment on above: Performed By: #### H CVPCRR #### [facility] [address] [place] [address] Dr. Carleen Underwood MCHC (RBC) [Mass/Vol] 30.6 g/dL Normal 29.9-35.2 [facility] Comment on above: Performed By: #### H CVPCRR #### [facility] [address] [place] [address] Dr. Carleen Underwood MCV (RBC) [Entitic vol] 76.2 fL Critically low 81.0-99.0 [facility] Comment on above: Performed By: #### H CVPCRR #### [facility] [address] [place] [address] Dr. Carleen Underwood MONO # 0.7 103/ul Normal 0.3-0.8 [facility] Comment on above: Performed By: #### H CVPCRR #### [facility] [address] [place] [address] Dr. Carleen Underwood Monocytes/100 WBC (Bld) 5.8 % Normal 1.7-12.0 [facility] Comment on above: Performed By: #### H CVPCRR #### [facility] [address] [place] [address] Dr. Carleen Underwood NEUT # 7.6 103/ul Critically high 1.4-6.5 [facility] Comment on above: Performed By: #### H CVPCRR #### [facility] [address] [place] [address] Dr. Carleen Underwood Neutrophils/100 WBC (Bld) 67.7 % Normal 43.0-75.0 [facility] Comment on above: Performed By: #### H CVPCRR #### [facility] [address] [place] [address] Dr. Carleen Underwood Platelet mean volume (Bld) [Entitic vol] 11.1 fL Normal 9.5-13.5 [facility] Comment on above: Performed By: #### H CVPCRR #### [facility] [address] [place] [address] Dr. Carleen Underwood PLT 242 103/ul Normal 150-450 [facility] Comment on above: Performed By: #### H CVPCRR #### [facility] [address] [place] [address] Dr. Carleen Underwood RBC 4.03 106/ul Critically low 4.20-5.40 [facility] Comment on above: Performed By: #### H CVPCRR #### [facility] [address] [place] [address] Dr. Carleen Underwood WBC 11.2 103/ul Critically high 4.0-11.0 [facility] Comment on above: Performed By: #### H CVPCRR #### [facility] [address] [place] [address] Dr. Carleen Underwood CBC AUTO DIFFon 07-27-2022 BASO # 0.0 103/ul Normal 0.0-0.1 [facility] Comment on above: Performed By: #### G LU1HR #### [facility] [address] [place] [address] Dr. Carleen Underwood Basophils/100 WBC (Bld) 0.5 % Normal 0.2-2.0 [facility] Comment on above: Performed By: #### G LU1HR #### [facility] [address] [place] [address] Dr. Carleen Underwood EO # 0.1 103/ul Normal 0.0-0.7 [facility] Comment on above: Performed By: #### G LU1HR #### [facility] [address] [place] [address] Dr. Carleen Underwood Eosinophils/100 WBC (Bld) 1.2 % Normal 0.9-7.0 [facility] Comment on above: Performed By: #### G LU1HR #### [facility] [address] [place] [address] Dr. Carleen Underwood Erythrocyte distribution width (RBC) [Ratio] 14.9 % Normal 11.0-15.0 [facility] Comment on above: Performed By: #### G LU1HR #### [facility] [address] [place] [address] Dr. Carleen Underwood Hematocrit (Bld) [Volume fraction] 29.6 % Critically low 36.0-48.0 [facility] Comment on above: Performed By: #### G LU1HR #### [facility] [address] [place] [address] Dr. Carleen Underwood Hemoglobin (Bld) [Mass/Vol] 9.3 g/dL Critically low 12.0-16.0 [facility] Comment on above: Performed By: #### G LU1HR #### [facility] [address] [place] [address] Dr. Carleen Underwood IG # 0.04 10e3/ul Critically high 0.00-0.03 [facility] Comment on above: Performed By: #### G LU1HR #### [facility] [address] [place] [address] Dr. Carleen Underwood IG % 0.5 % Normal 0.0-0.5 [facility] Comment on above: Performed By: #### G LU1HR #### [facility] [address] [place] [address] Dr. Carleen Underwood LYMPH # 2.1 103/ul Normal 1.2-3.8 [facility] Comment on above: Performed By: #### G LU1HR #### [facility] [address] [place] [address] Dr. Carleen Underwood Lymphocytes/100 WBC (Bld) 25.5 % Normal 20.5-60.0 [facility] Comment on above: Performed By: #### G LU1HR #### [facility] [address] [place] [address] Dr. Carleen Underwood MANUAL DIFF REQ NO Normal [facility] Comment on above: Performed By: #### G LU1HR #### [facility] [address] [place] [address] Dr. Carleen Underwood MCH (RBC) [Entitic mass] 23.2 pg Critically low 26.7-34.0 [facility] Comment on above: Performed By: #### G LU1HR #### [facility] [address] [place] [address] Dr. Carleen Underwood MCHC (RBC) [Mass/Vol] 31.4 g/dL Normal 29.9-35.2 [facility] Comment on above: Performed By: #### G LU1HR #### [facility] [address] [place] [address] Dr. Carleen Underwood MCV (RBC) [Entitic vol] 73.8 fL Critically low 81.0-99.0 [facility] Comment on above: Performed By: #### G LU1HR #### [facility] [address] [place] [address] Dr. Carleen Underwood MONO # 0.5 103/ul Normal 0.3-0.8 [facility] Comment on above: Performed By: #### G LU1HR #### [facility] [address] [place] [address] Dr. Carleen Underwood Monocytes/100 WBC (Bld) 6.2 % Normal 1.7-12.0 [facility] Comment on above: Performed By: #### G LU1HR #### [facility] [address] [place] [address] Dr. Carleen Underwood NEUT # 5.4 103/ul Normal 1.4-6.5 [facility] Comment on above: Performed By: #### G LU1HR #### [facility] [address] [place] [address] Dr. Carleen Underwood Neutrophils/100 WBC (Bld) 66.1 % Normal 43.0-75.0 [facility] Comment on above: Performed By: #### G LU1HR #### [facility] [address] [place] [address] Dr. Carleen Underwood Platelet mean volume (Bld) [Entitic vol] 11.3 fL Normal 9.5-13.5 [facility] Comment on above: Performed By: #### G LU1HR #### [facility] [address] [place] [address] Dr. Carleen Underwood PLT 238 103/ul Normal 150-450 [facility] Comment on above: Performed By: #### G LU1HR #### [facility] [address] [place] [address] Dr. Carleen Underwood RBC 4.01 106/ul Critically low 4.20-5.40 [facility] Comment on above: Performed By: #### G LU1HR #### [facility] [address] [place] [address] Dr. Carleen Underwood WBC 8.2 103/ul Normal 4.0-11.0 [facility] Comment on above: Performed By: #### G LU1HR #### [facility] [address] [place] [address] Dr. Carleen Underwood Covid-19 PCR ([facility])on SARS-CoV-2 (COVID-19) RNA HUY+probe Ql (Unsp spec) Not detected Normal NOT DETECTED [facility] Comment on above: Result Comment: When [...] for this test is supported by the [employer]'s declaration that [...] used). Performed By: #### H CVPCRR #### [facility] [address] [place] [address] Dr. Carleen Underwood DRUG SCREEN RAPID (URINE)on 07-27-2022 AMP Negative Normal NEGATIVE [facility] Comment on above: Performed By: #### G TT3P #### [facility] [address] [place] [address] Dr. Carleen Underwood BAR Negative Normal NEGATIVE [facility] Comment on above: Performed By: #### G TT3P #### [facility] [address] [place], [place] [id number] Dr. Carleen Underwood BUP Negative Normal NEGATIVE [facility] Comment on above: Performed By: #### G TT3P #### [facility] [address] [place] [address] Dr. Carleen Underwood BZO Negative Normal NEGATIVE [facility] Comment on above: Performed By: #### G TT3P #### [facility] [address] [place] [address] Dr. Carleen Underwood EMIGDIO Negative Normal NEGATIVE [facility] Comment on above: Performed By: #### G TT3P #### [facility] [address] [place] [address] Dr. Carleen Underwood CUT-OFFS SEE BELOW Normal [facility] Comment on above: Result Comment: AMP [...] ng/mL Performed By: #### G TT3P #### [facility] [address] [place] [address] Dr. Carleen Underwood DRUG CUT HEADER DRUG CLASS TEST SYST EM CUT-OFF CONCENTRATIONS ARE FOLLOWS: Normal [facility] Comment on above: Performed By: #### G TT3P #### [facility] [address] [place] [address] Dr. Carleen Underwood mAMP Negative Normal NEGATIVE [facility] Comment on above: Performed By: #### G TT3P #### [facility] [address] [place] [address] Dr. Carleen Underwood MTD Negative Normal NEGATIVE [facility] Comment on above: Performed By: #### G TT3P #### [facility] [address] [place] [address] Dr. Carleen Underwood OPI Negative Normal NEGATIVE [facility] Comment on above: Performed By: #### G TT3P #### [facility] [address] [place] [address] Dr. Carleen Underwood OXY Negative Normal NEGATIVE [facility] Comment on above: Performed By: #### G TT3P #### [facility] [address] [place] [address] Dr. Carleen Underwood PCP Negative Normal NEGATIVE [facility] Comment on above: Performed By: #### G TT3P #### [facility] [address] [place] [address] Dr. Carleen Underwood PPX Negative Normal NEGATIVE [facility] Comment on above: Performed By: #### G TT3P #### [facility] [address] [place] [address] Dr. Carleen Underwood TCA Negative Normal NEGATIVE [facility] Comment on above: Performed By: #### G TT3P #### [facility] [address] [place] [address] Dr. Carleen Underwood THC Negative Normal NEGATIVE [facility] Comment on above: Performed By: #### G TT3P #### [facility] [address] [place] [address] Dr. Carleen Underwood TYPE AND SCREENon 07-27-2022 TYPE AND SCREEN Negative Normal [facility] Comment on above: Performed By: #### G TT3P #### [facility] [address] [place] [address] Dr. Carleen Underwood US PREG AMNIOTIC FLUID [...] by: FOUZIA CALERO Date: 2022-07-12 16:24 Normal [facility] US PREG BIOPHY W NON STRESSo [...] BRANDI ANN Date: 2022-07-09 16:35 Normal [facility] US PREG BIOPHY W NON STRESSo [...] FOUZIA CALERO Date: 2022-07-06 17:28 Normal [facility] GROUP B STREP CULTUREon 06-26 S. agalactiae Ag Ql (Unsp spec) Culture Observations: NEGATIVE FOR GROUP B STREPTOCOCCUS. Normal [facility] Comment on above: Performed By: #### G TT3P #### [facility] [address] [place] [address] Dr. Carleen Underwood US PREG GROWTHon 07-05-2022 [...] Age by EDC: 35 weeks 6 days VALERIA by EDC: 08/03/2022 Age by US: 35 weeks 5 days VALERIA by US: 08/04/2022 IMPRESSION: 1. Single live intrauterine with growth detailed above. 2. Oligohydramn[address]. Dr. Marroquin was notified of these findings by putty remover at time of imaging. 3. Biparietal diameter is at 8th percentile. Electronically authenticated by: FOUZIA CALERO Date: 2022-07-05 16:58 Normal [facility] US PREG GROWTHon 06-11-2022 US PREG GROWTH EXAMINATION: [...] by: FOUZIA CALERO Date: 2022-06-11 16:22 Normal [facility] US PREG INCOMPLETE ANATOMYon 06-11-2022 US [...] FOUZIA CALERO Date: 2022-06-11 16:20 Normal [facility] US PREG INCOMPLETE ANATOMYon 05-14-2022 US [...] FOUZIA CALERO Date: 2022-05-14 17:15 Normal [facility] GTT 3 HR PREGon 04-24-2022 Glucose [Mass/Vol] 91 mg/dL Normal 74-106 [facility] Comment on above: Performed By: #### G TT3P #### [facility] [address] [address] [address] Carleen Underwood Glucose [Mass/Vol] 141 mg/dL Normal [facility] Comment on above: Performed By: #### G TT3P #### [facility] [address] [address] [address] Carleen Underwood Glucose [Mass/Vol] 103 mg/dL Normal [facility] Comment on above: Performed By: #### G TT3P #### [facility] [address] [address] [address] Carleen Underwood Glucose [Mass/Vol] 75 mg/dL Normal [facility] Comment on above: Performed By: #### G TT3P #### [facility] [address] [address] [address] Carleen Underwood US PREG INCOMPLETE ANATOMYon [...] cervical os Normal ventricular outflow tracts Normal [facility] PAP ACOG PANEL 2: 30 to 65on 04-20-2022 . . Normal [facility] Comment on above: Result Comment: Perf ormed at: WB Performed By: #### [id number] #### [facility] [address] [address] [address] Carleen Underwood Age Gdln ACOG Testing - Normal [facility] Comment on above: Performed By: #### [id number] #### [facility] [address] [address] [address] Carleen Underwood DIAGNOSIS: Comment Normal [facility] Comment on above: Result Comment: NEGA TIVE FOR INTRAEPITHELIAL LESION OR MALIGNANCY. Performed at: WB Performed By: #### [id number] #### [facility] [address] [address] [address] Carleen Underwood HPV Aptima Negative Normal Negative [facility] Comment on above: Result Comment: This nucleic acid amplification test detects fourteen high-risk HPV types (16,18,31,33,35,39,45,51,52,56,58,59,66,68) without differentiation. Performed at: =G Performed By: #### [id number] #### [facility] [address] [address] [address] Carleen Underwood Methodology: Comment Normal [facility] Comment on above: Result Comment: This liquid based ThinPrep(R) pap test was screened with the use of an image guided system. Performed at: WB Performed By: #### [id number] #### [facility] [address] [address] [address] Carleen Underwood Note: Comment Normal [facility] Comment on above: Result Comment: The Pap smear is a screening test designed to aid in the detection of premalignant and malignant conditions of the uterine cervix. It is not a diagnostic procedure and should not be used as the sole means of detecting cervical cancer. Both false-positive and false-negative reports do occur. . Performed at: WB Performed By: #### [id number] #### [facility] [address] [place] [address] Dr. Carleen Underwood Performed by: Comment Normal [facility] Comment on above: Result Comment: Carol Aguilar, Formulator Compounder Performed at: WB Performed By: #### [id number] #### [facility] [address] [place] [address] Dr. Carleen Underwood Specimen adequacy: Comment Normal [facility] Comment on above: Result Comment: Sati sfactory for evaluation. No endocervical component is identified. Performed at: WB Performed By: #### [id number] #### [facility] [address] [place] [address] Dr. Carleen Underwood CHLAMYDIA/GONOCOCCUS HUY (SW AB/URINE/PAPon 04-19-2022 Chlamydia trachomatis, HUY Negative Normal Negative [facility] Comment on above: Performed By: #### H CVPCRR #### [facility] [address] [place] [address] Dr. Carleen Underwood Neisseria gonorrhoeae, HUY Negative Normal Negative [facility] Comment on above: Performed By: #### H CVPCRR #### [facility] [address] [place] [address] Dr. Carleen Underwood VAGINITIS/VAGINOSIS DNA PROB True 04-19-2022 Priya species Negative Normal Negative [facility] Comment on above: Performed By: #### G LU1HR #### [facility] [address] [place] [address] Dr. Carleen Underwood Gardnerella vaginalis Negative Normal Negative [facility] Comment on above: Performed By: #### G LU1HR #### [facility] [address] [place] [address] Dr. Carleen Underwood Trichomonas vaginalis Negative Normal Negative [facility] Comment on above: Performed By: #### G LU1HR #### [facility] [address] [place] [address] Dr. Carleen Underwood GLUCOSE - 1HRon 04-17-2022 Glucose [Mass/Vol] 150 mg/dL Critically high 74-106 T [facility] Comment on above: Performed By: #### G LU1HR #### [facility] [address] [place] [address] Dr. Carleen Underwood HEMOGRAM AND PLATELon 2021 Hematocrit (Bld) [Volume fraction] 31.9 % Critically low 36.0-48.0 [facility] Comment on above: Performed By: #### H H #### [facility] [address] [place] [address] Dr. Carleen Underwood Hemoglobin (Bld) [Mass/Vol] 10.3 g/dL Critically low 12.0-16.0 [facility] Comment on above: Performed By: #### H H #### [facility] [address] [place] [address] Dr. Carleen Underwood MCH (RBC) [Entitic mass] 26.6 pg Critically low 26.7-34.0 [facility] Comment on above: Performed By: #### H H #### [facility] [address] [place] [address] Dr. Carleen Underwood MCHC (RBC) [Mass/Vol] 32.3 g/dL Normal 29.9-35.2 [facility] Comment on above: Performed By: #### H H #### [facility] [address] [place] [address] Dr. Carleen Underwood MCV (RBC) [Entitic vol] 82.4 fL Normal 81.0-99.0 [facility] Comment on above: Performed By: #### H H #### [facility] [address] [place] [address] Dr. Carleen Underwood PLT 233 103/ul Normal 150-450 [facility] Comment on above: Performed By: #### H H #### [facility] [address] [place] [address] Dr. Carleen Underwood RBC 3.87 106/ul Critically low 4.20-5.40 [facility] Comment on above: Performed By: #### H H #### [facility] [address] [address] [address] Carleen Underwood WBC 8.5 103/ul Normal 4.0-11.0 [facility] Comment on above: Performed By: #### H H #### [facility] [address] [address] [address] Carleen Underwood AFP MATERNAL FOR SPINA BIFID Aon 03-22-2022 AFP MoM 1.08 Normal [facility] Comment on above: Performed By: #### H CVPCRR #### [facility] [address] [address] Dr. Carleen Underwood AFP Value 43.1 ng/mL Normal [facility] Comment on above: Performed By: #### H CVPCRR #### [facility] [address] [address] [address] Carleen Underwood AFP, Serum for Spina Bifida Report Normal [facility] Comment on above: Performed By: #### H CVPCRR #### [facility] [address] [address] [address] Carleen Underwood Comment Comment Normal [facility] Comment on above: Result Comment: Re Quick, Ph.D., [facility] Director . References: Available Upon Request. . Multiples Of Median Cutoffs For AFP Elevations Hopson 2.5 Black 2.8 IDD 2.0 Twins 4.5 Abbreviation Definitions IDD - Insulin Dep Diabetes OSBR - Open Spina Bifida Risk . For further inquiries contact [facility] at [phone]. . This test was developed and its performance characteristics determined by [employer]. It has not been cleared or approved by the Food and Drug Administration. Performed By: #### H CVPCRR #### [facility] [address] [address] [address] Carleen Marie Age Collection Date 19.4 weeks Normal [facility] Comment on above: Performed By: #### H CVPCRR #### [facility] [address] [address] [address] Carleen Underwood Gestat, Age Based on LMP Normal [facility] Comment on above: Result Comment: Reca lculations are not recommended when gestational dating by LMP and ultrasound are within 10 days. Performed By: #### H CVPCRR #### [facility] [address] [place] [address] Dr. Carleen Underwood Insulin Dep Diabetes No Normal [facility] Comment on above: Performed By: #### H CVPCRR #### [facility] [address] [place] [address] Dr. Carleen Underwood Interpretation Comment Normal [facility] Comment on above: Result Comment: Inte [...] Customer Services to discuss available options. The [employer] [place] [employer] recommends amniocentesis be offered to women age 35 and older. Performed By: #### H CVPCRR #### [facility] [address] [place] [address] Dr. Carleen Underwood [age] Normal [facility] Comment on above: Performed By: #### H CVPCRR #### [facility] [address] [place] [address] Dr. Carleen Underwood Multiple Gestation No Normal [facility] Comment on above: Performed By: #### H CVPCRR #### [facility] [address] [place] [address] Dr. Carleen Underwood OSBR Risk 1 IN 9540 Normal [facility] Comment on above: Performed By: #### H CVPCRR #### [facility] [address] [place] [address] Dr. Carleen Underwood PDF . Normal [facility] Comment on above: Performed By: #### H CVPCRR #### [facility] [address] [place] [address] Dr. Carleen Underwood Race Normal [facility] Comment on above: Performed By: #### H CVPCRR #### [facility] [address] [place], [place] [address] [address]. Carleen Underwood Test Results: Negative Normal [facility] Comment on above: Performed By: #### H CVPCRR #### [facility] [address] [place], [place] [address] Dr. Carleen Underwood US PREG ANATOMY SINGLEon [...] by: FOUZIA CALERO Date: 2022-03-19 17:04 Normal [facility] GLUCOSE - 1HRon 02-14-2022 Glucose [Mass/Vol] 107 mg/dL Critically high 74-106 T [facility] Comment on above: Performed By: #### H CVPCRR #### [facility] [address] [address] [address] Carleen Underwood HEP B SURFACE ANTIGEN SCREEN on 01-13-2022 HBsAg Screen Negative Normal Negative [facility] Comment on above: Performed By: #### H BSANS #### [facility] [address] [address] [address] Carleen Underwood HEPATITIS C VIRUS AB W/ REFL EX QUANTon 01-13-2022 HCV AB <0.1 Normal 0.0-0.9 [facility] Comment on above: Performed By: #### H CVPCRR #### [facility] [address] [place] [address] Dr. Carleen Underwood Interpretation: Comment Normal [facility] Comment on above: Result Comment: Nega tive Not infected with HCV, unless recent infection is suspected or other evidence exists to indicate HCV infection. Performed By: #### H CVPCRR #### [facility] [address] [place] [address] Dr. Carleen Underwood HIV 1 AND 2 WITH REFLEXon HIV Screen 4th Generation wRfx Non-Reactive Normal Non Reactive [facility] Comment on above: Result Comment: HIV Negative HIV-1/HIV-2 antibodies and HIV-1 p24 antigen were NOT detected. There is no laboratory evidence of HIV infection. Performed By: #### G LU1HR #### [facility] [address] [place] [address] Dr. Carleen Underwood RPR QUANTon 01-13-2022 Rapid Plasma Reagin, Quant Non-Reactive Normal NonRea<1:1 [facility] Comment on above: Result Comment: Plea Note: This test does not meet current guidelines for screening and diagnosis of syphilis. This test is intended for following treatment response in patients being treated for syphilis infection. To screen for syphilis infection, a reflex cascade that includes both RPR and a treponema-specific assay should be utilized, such as Treponema pallidum (Syphilis) Screening Terrell (370706) or Rapid Plasma Reagin (RPR) Test With Reflex to Quantitative RPR and Confirmatory Treponema pallidum Antibodies (714945). Performed By: #### H CVPCRR #### [facility] [address] [place] [address] Dr. Carleen Underwood RUBELLA AB IGGon 01-13-2022 Rubella Antibodies, IgG 4.86 index Normal Immune >0.99 [facility] Comment on above: Result Comment: Non- immune <0.90 Equivocal 0.90 - 0.99 Immune >0.99 Performed By: #### R UBIGG #### [facility] [address] [place] [address] Dr. Carleen Underwood CBC AUTO DIFFon 01-12-2022 BASO # 0.0 103/ul Normal 0.0-0.1 [facility] Comment on above: Performed By: #### C BC #### [facility] [address] [place] [address] Dr. Carleen Underwood Basophils/100 WBC (Bld) 0.4 % Normal 0.2-2.0 [facility] Comment on above: Performed By: #### C BC #### [facility] [address] [place] [address] Dr. Carleen Underwood EO # 0.1 103/ul Normal 0.0-0.7 [facility] Comment on above: Performed By: #### C BC #### [facility] [address] [place] [address] Dr. Carleen Underwood Eosinophils/100 WBC (Bld) 1.1 % Normal 0.9-7.0 [facility] Comment on above: Performed By: #### C BC #### [facility] [address] [place] [address] Dr. Carleen Underwood Erythrocyte distribution width (RBC) [Ratio] 14.5 % Normal 11.0-15.0 [facility] Comment on above: Performed By: #### C BC #### [facility] [address] [place] [address] Dr. Carleen Underwood Hematocrit (Bld) [Volume fraction] 35.8 % Critically low 36.0-48.0 [facility] Comment on above: Performed By: #### C BC #### [facility] [address] [address] [address] Carleen Underwood Hemoglobin (Bld) [Mass/Vol] 11.2 g/dL Critically low 12.0-16.0 [facility] Comment on above: Performed By: #### C BC #### [facility] [address] [place] [address] Dr. Carleen Underwood IG # 0.02 10e3/ul Normal 0.00-0.03 [facility] Comment on above: Performed By: #### C BC #### [facility] [address] [place] [address] Dr. Carleen Underwood IG % 0.4 % Normal 0.0-0.5 [facility] Comment on above: Performed By: #### C BC #### [facility] [address] [place] [address] Dr. Carleen Underwood LYMPH # 1.6 103/ul Normal 1.2-3.8 [facility] Comment on above: Performed By: #### C BC #### [facility] [address] [place] [address] Dr. Carleen Underwood Lymphocytes/100 WBC (Bld) 27.9 % Normal 20.5-60.0 [facility] Comment on above: Performed By: #### C BC #### [facility] [address] [place] [address] Dr. Carleen Underwood MANUAL DIFF REQ NO Normal [facility] Comment on above: Performed By: #### C BC #### [facility] [address] [place] [address] Dr. Carleen Underwood MCH (RBC) [Entitic mass] 26.1 pg Critically low 26.7-34.0 [facility] Comment on above: Performed By: #### C BC #### [facility] [address] [place] [address] Dr. Carleen Underwood MCHC (RBC) [Mass/Vol] 31.3 g/dL Normal 29.9-35.2 [facility] Comment on above: Performed By: #### C BC #### [facility] [address] [address] [address] Carleen Underwood MCV (RBC) [Entitic vol] 83.4 fL Normal 81.0-99.0 [facility] Comment on above: Performed By: #### C BC #### [facility] [address] [address] [address] Carleen Underwood MONO # 0.4 103/ul Normal 0.3-0.8 [facility] Comment on above: Performed By: #### C BC #### [facility] [address] [place] [address] Dr. Carleen Underwood Monocytes/100 WBC (Bld) 6.2 % Normal 1.7-12.0 [facility] Comment on above: Performed By: #### C BC #### [facility] [address] [place] [address] Dr. Carleen Underwood NEUT # 3.7 103/ul Normal 1.4-6.5 [facility] Comment on above: Performed By: #### C BC #### [facility] [address] [place] [address] Dr. Carleen Underwood Neutrophils/100 WBC (Bld) 64.0 % Normal 43.0-75.0 [facility] Comment on above: Performed By: #### C BC #### [facility] [address] [place] [address] Dr. Carleen Underwood Platelet mean volume (Bld) [Entitic vol] 10.3 fL Normal 9.5-13.5 [facility] Comment on above: Performed By: #### C BC #### [facility] [address] [place] [address] Dr. Carleen Underwood PLT 229 103/ul Normal 150-450 [facility] Comment on above: Performed By: #### C BC #### [facility] [address] [place] [address] Dr. Carleen Underwood RBC 4.29 106/ul Normal 4.20-5.40 [facility] Comment on above: Performed By: #### C BC #### [facility] [address] [place] [address] Dr. Carleen Underwood WBC 5.7 103/ul Normal 4.0-11.0 [facility] Comment on above: Performed By: #### C BC #### [facility] [address] [place] [address] Dr. Carleen Underwood CULTURE URINEon 01-12-2022 CULTURE URINE Culture Observations : LIGHT GROWTH OF MIXED GENITAL YULI. NO POTENTIAL PATHOGENS SEEN. Normal [facility] Comment on above: Performed By: #### U RCX #### [facility] [address] [place] [address] Dr. Carleen Underwood GLYCOHEMOGLOBIN A1Con 2021 ADA RECOMMENDATION SEE BELOW Normal [facility] Comment on above: Result Comment: ADA RECOMMENDED LIMIT 4.0 - 6.0 ADA THERAPEUTIC TARGET < 7.0 ACTION SUGGESTED > 7.0 Performed By: #### G LU1HR #### [facility] [address] [place] [address] Dr. Carleen Underwood Glucose [Mass/Vol] 100 mg/dL Normal [facility] Comment on above: Performed By: #### G LU1HR #### [facility] [address] [place] [address] Dr. Carleen Underwood HbA1c (Bld) [Mass fraction] 5.1 % Normal 4.5-6.2 [facility] Comment on above: Performed By: #### G LU1HR #### [facility] [address] [place] [address] Dr. Carleen Underwood EMILY BOX TEST PT SEND OUTo n 01-12-2022 SENT TO REF LAB 01/12/2022 Normal [facility] Comment on above: Performed By: #### H CVPCRR #### [facility] [address] [place] [address] Dr. Carleen Underwood TYPE AND SCREENon 01-12-2022 TYPE AND SCREEN Negative Normal [facility] Comment on above: Performed By: #### T NS #### [facility] [address] [place] [address] Dr. Carleen Underwood US PREG TVon 12-29-2021 [...] by: BRANDI ANN Date: 2021-12-29 16:07 Normal [facility] Coding Summary.on 02-12-2020 Coding Summary. 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 [...] Elizabeth Esquivel Date Saved: 02/12/2020 10:10 am Normal [facility] Physician Orderon 02-07-2020 Physician Order [id number] Normal [facility] Vital Signs Date Time Vital Sign Value Performing Clinician Facility 07-15-2023 13:00-0500 Body height 170.81 cm Chery Aranda Other [facility] Other 07-15-2023 13:00-0500 Body mass index (BMI) [Ratio] 39.95 kg/m2 Chery Aranda Other [facility] Other 07-15-2023 13:00-0500 Body weight 116.58 kg Chery Aranda Other [facility] Other 07-15-2023 13:00-0500 Diastolic blood pressure 74 mm[Hg] Chery Aranda Other [facility] Other 07-15-2023 13:00-0500 Systolic blood pressure 107 mm[Hg] Chery Aranda Other [facility] Other 06-14-2023 13:30-0400 Body height 170.81 cm Chery Aranda Other [facility] Other 06-14-2023 13:30-0400 Body mass index (BMI) [Ratio] 39.42 kg/m2 Chery Aranda Other [facility] Other 06-14-2023 13:30-0400 Body weight 115.03 kg Chery Aranda Other [facility] Other 06-14-2023 13:30-0400 Diastolic blood pressure 72 mm[Hg] Chery Aranda Other [facility] Other 06-14-2023 13:30-0400 Systolic blood pressure 118 mm[Hg] Chery Aranda Other [facility] Other 05-16-2023 13:00-0400 Body height 170.81 cm Chery Aranda Other [facility] Other 05-16-2023 13:00-0400 Body mass index (BMI) [Ratio] 40.1 kg/m2 Chery Aranda Other [facility] Other 05-16-2023 13:00-0400 Body weight 117.03 kg Chery Aranda Other [facility] Other 05-16-2023 13:00-0400 Diastolic blood pressure 67 mm[Hg] Chery Aranda Other [facility] Other 05-16-2023 13:00-0400 Systolic blood pressure 102 mm[Hg] Chery Aranda Other [facility] Other 04-15-2023 13:00-0400 Body height 170.81 cm Chery Aranda Other [facility] Other 04-15-2023 13:00-0400 Body mass index (BMI) [Ratio] 41.35 kg/m2 Chery Aranda Other [facility] Other 04-15-2023 13:00-0400 Body weight 120.66 kg Chery Aranda Other [facility] Other 04-15-2023 13:00-0400 Diastolic blood pressure 71 mm[Hg] Chery Aranda Other [facility] Other 04-15-2023 13:00-0400 Systolic blood pressure 110 mm[Hg] Chery Aranda Other [facility] Other 03-22-2022 02:06-0400 Body weight 117.[address] BRANDI ANN [facility] Comment on above: Performed By: #### HCVPCRR #### [facility] [address] [place] [address] Dr. Carleen Underwood Encounters Encounter Date Encounter Type Care Provider Facility Start: 12-11-2023 End: 12-11-2023 ambulatory DINH LOPEZ Not Available Start: 11-27-2023 End: 11-27-2023 ambulatory FRIEDA MILLS Not Available Start: 11-13-2023 End: 11-13-2023 ambulatory DINH LOPEZ Not Available Start: 10-17-2023 End: 10-18-2023 ambulatory [facility] Start: 10-16-2023 End: 10-16-2023 ambulatory DINH LOPEZ Not Available Start: 10-04-2023 Chart abstracting Chao Marmolejo MD Work Phone: [facility] Start: 09-18-2023 End: 09-18-2023 ambulatory FRIEDA MILLS Not Available Start: 08-20-2023 End: 08-20-2023 ambulatory DINH LOPEZ Not Available Start: 07-26-2023 End: 07-26-2023 ambulatory DINH LOPEZ Not Available Start: 07-15-2023 End: 07-15-2023 ambulatory Chery Aranda Other [facility] Other Start: 07-15-2023 Office outpatient vi sit 10 minutes Chery Aranda [facility] Start: 06-14-2023 End: 06-14-2023 ambulatory Chery Aranda Other [facility] Other Start: 06-14-2023 Office outpatient vi sit 10 minutes Chery Aranda [facility] Start: 05-16-2023 End: 05-16-2023 ambulatory Chery Aranda Other [facility] Other Start: 05-16-2023 Office outpatient vi sit 10 minutes Chery Aranda [facility] Start: 04-15-2023 End: 04-15-2023 ambulatory Chery Aranda Other [facility] Other Start: 04-15-2023 Office outpatient ne w 45 minutes Chery Aranda [facility] Start: 07-31-2022 End: 07-31-[address] DINH [...] 04-17-2022 End: 04-18-[address] EMERSON LISTED RIA Facility:[facility] Start: 04-16-2022 End: 04-16-[address] [...] Basic metabolic pane l calcium total Dinh R Lopez DO Work Phone: Start: 07-26-2023 HIV 1&2 [...] Start: 10-22-2023 End: 10-22-2023 Patient encounter procedure [facility] Start: 04-26-2023 Influenza vaccination Influenza Vacc ine [facility] Start: 2011 Screening for malign ant neoplasm of cervix Pap Smear [facility] Start: 2009 DTaP,Tdap and Td Vaccines (1 - Tdap) DTaP,Tdap and Td Vaccines (1 - Tdap) [facility] Start: 2008 Adult BMI Screening Adult BMI Screen ing [facility] Start: 2002 Depression Screening Depression Scre ening [facility] Start: 2002 Tobacco Screening Tobacco Screening [facility] Immunizations Immunization Date Immunization Notes Care Provider Fa betty 09-08-2019 influenza virus vaccine, unspecified formulation Chao Ling MD Work Phone: [facility] Payers Date Payer Category Payer Private Health Insurance [employer] A ETNA POS [id number] 2017-Present [phone] [address] [place] [address] [id number] 1990 Unknown [id number] 2.840.1.488155.3.579.2.5 93 1990 Unknown [id number] 2.840.1.540721.3.579.2.5 93 1990 Unknown [id number] 2.16.840.1.115119.3.579.2.5 93 1990 Unknown [id number] 2.16.840.1.178021.3.579.2.5 1990 Unknown [id number] 2.16.840.1.463136.3.579.2.5 93 1990 Unknown [id number] 2.16.840.1.636944.3.579.2.5 93 1990 Unknown [id number] 2.16.840.1.750016.3.579.2.5 93 1990 Unknown [id number] 2.16.840.1.326110.3.579.2.5 93 1990 Unknown [id number] 2.16.840.1.358380.3.579.2.5 93 1990 Unknown [id number] 2.16.840.1.799978.3.579.2.5 93 1990 Unknown [id number] 2.16.840.1.683460.3.579.2.5 93 1990 Unknown [id number] 2.16.840.1.687935.3.579.2.5 93 1990 Unknown [id number] 2.16.840.1.974097.3.579.2.5 93 1990 Unknown [id number] 2.16.840.1.155891.3.579.2.5 93 1990 Unknown [id number] 2.16.840.1.817462.3.579.2.5 93 1990 Unknown [id number] 2.16.840.1.620973.3.579.2.5 93 1990 Unknown [id number] 2.16.840.1.890575.3.579.2.5 93 1990 Unknown [id number] 2.16.840.1.986649.3.579.2.5 93 1990 Unknown [id number] 2.16.840.1.016820.3.579.2.1 259 1990 Unknown [id number] 2.16.840.1.174728.3.579.2.1 259 1990 Unknown [id number] 2.16.840.1.677258.3.579.2.1 259 1990 Unknown [id number] 2.16.840.1.764642.3.579.2.1 259 1990 Unknown [id number] 2.16.840.1.733351.3.579.2.1 259 1990 Unknown [id number] 2.16.840.1.039641.3.579.2.1 259 1990 Unknown [id number] 2.16.840.1.282896.3.579.2.1 259 1959 Private Health Insurance [id number] 1959 Unknown [id number] Unknown [id number] 2.16.840.1.664706.3.579.2.5 93 Social History Date Type Detail Facility Unknown if ever smoked [facility] Other Start: 10-06-2020 End: 10-04-2023 Sex Assigned At [employer] Other Start: 09-11-2019 Tobacco smoking stat [facility] Never smoked tobacco [facility] Start: 09-11-2019 Tobacco use and exposure Smokeless tobacco non-user [facility] Start: 10-04-2023 Alcohol intake Ex-drinker (finding) [facility] Start: 10-06-2020 End: 10-04-2023 History of Social function [facility] Childcare Unknown [facility] Start: 05-30-2023 [facility] Start: 1990 Sex Assigned At Not on file [facility] Evaluation note 07-15-2023 Note Date & Type Note Facility 07-15-2023 Evaluation note Encounter Date Diagnosis Assessment Notes Jun, First trimester (ICD-10 - Z34.91) Continued followup w Dr. Marroquin. No further adipex. [facility] Other Evaluation note 06-14-2023 Note Date & [...] index [BMI] 39.0-39.9, adult (ICD-10 - Z68.39) [facility] Other Evaluation note 05-16-2023 Note Date & [...] index [BMI] 40.0-44.9, adult (ICD-10 - Z68.41) [facility] Other Evaluation note 04-15-2023 Note Date & [...] index [BMI] 40.0-44.9, adult (ICD-10 - Z68.41) [facility] Other History general Narrative - Reported Note Date & Type Note Facility History general Narrative - Reported Type Surgical History T & A 2009 Surgical History Gallbladder 2012 [facility] Other History general Narrative - Reported Note Date & Type Note Facility History general Narrative - Reported Type Surgical History T & A 2009 Surgical History Gallbladder 2013 Hospitalization History see surgical hx [facility] [place] Other History general Narrative - Reported Note [...] Gallbladder 2012 Hospitalization History see surgical hx [facility] Other Instructions Note Date & Type Note Facility Instructions Not on filedocumented in this en counter [facility] Summary Purpose Family History No Family History Records FoundNo Family History Records FoundNo Family History Records FoundNo Family History Records Found Advance Directives No Advanced Directives Records FoundNo Advanced Directives Records FoundNo Advanced Directives Records FoundNo Advanced Directives Records Found Additional Source Comments INFORMATION SOURCE (unrecogn ized section and content) DATE CREATED AUTHOR 03/11/2020 Villarreal Jalil [facility] DATE CREATED AUTHOR AUTHOR'S ORGANIZ ATION 08/04/2022 [facility] DATE CREATED AUTHOR AUTHOR'S ORGANIZ ATION 12/10/[address] [facility] DATE CREATED AUTHOR AUTHOR'S ORGANIZ ATION 12/13/2023 [facility] EPIC REASON FOR VISIT (unrecogniz ed section and content) ESTABLISH CARE1 month Follow up1 month Follow up1 month Follow up Care Teams (unrecognized sec tion and content) Secondary Teacher Relationship Specialty Start Date End Date Pola Osei, [employer]IOLOGIC TECHNOLOGIST [address] [place] [id number] PCP - General 12/29/16 FOR RECORDS PERTAINING [...] BE BASED ON THE PRIMARY CLINICAL RECORDS. [facility]. provides no warranty or guarantee of the accuracy or completeness of information in this document.
--- NOTE | 2023-12-19 13:04 | US_ITS ---
[address] [address] Patient Name: YANETH BROWNLEE MRN: [id number]:[id number] date: 1990 Sex: F Assigned Patient Location: [facility] Current Patient Location: [facility] Accession/Order Number: [id number] Exam Date: 12/19/2023 13:05 Report Date: 12/19/2023 13:36 At the request of: DINH MESSER Procedure: US OB BPP w non-stress EXAMINATION: US OB BPP w non-stress HISTORY: Poor growth affection management O36.5930 COMPARISON: Ultrasound OB anatomy 10/03/2023 TECHNIQUE: Ultrasound biophysical profile was performed in the radiology department. BREATHING MOVEMENTS: 2.0 GROSS BODY MOVEMENTS: 2.0 TONE: 2.0 QUALITATIVE AMNIOTIC FLUID VOLUME: 2.0 PRESENTATION: CEPHALIC HEART RATE: 126.2 bpm bpm. AMNIOTIC FLUID VOLUME: 12.7 cm GESTATIONAL AGE: 31 weeks 0 days CONCLUSION: Total biophysical profile score 8.0. Electronically authenticated by: FOUZIA CALERO Date: 12/19/2023 13:36
[2023-12-19 13:21] VITALS: BP 127/71; PULSE 67
== END 2023-12-19 13:45 | disposition home or self-care (01) ==
LOC: US 07:41 → FBC 13:03
PROVIDERS: PCP Family Medicine; Visit Provider Obstetrics & Gynecology
DX: O36.5930 Maternal care for other known or suspected poor fetal growth, third trimester, not applicable or unspecified (principal); Z3A.31 31 weeks gestation of pregnancy
CPT/HCPCS: 76818

== ENCOUNTER 2023-12-23 07:16 | Outpatient (OUT) | payer OTHER, SELFPAY ==
--- OUTSIDE RECORDS SUMMARY | 2023-12-23 07:18 | XMS_ITS | CCD ---
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 B1 <1:10 Normal <1:10 [facility] Comment on above: Performed By: #### C MVG, LUPPRO, AT3A, PROCAC, PROSAC, CMVM, CMIS, TOXOG, TOXOM, HOCYS #### [facility] [address], [place] [phone] Computer Systems Consultant: Tanvir Macias MD #### APTMUT, AF5MUT, AMTHFR, ACOXA9, APARVP, ACOXAB #### [facility] [address], [place] [id number] Computer Systems Consultant: MD Tatum Santoyo B2 1:20 Normal <1:10 [facility] Comment on above: Performed By: #### C MVG, LUPPRO, AT3A, PROCAC, PROSAC, CMVM, CMIS, TOXOG, TOXOM, HOCYS #### [facility] [address] [place] [address] Computer Systems Consultant: Tanvir Macias MD #### APTMUT, AF5MUT, AMTHFR, ACOXA9, APARVP, ACOXAB #### [facility] [address], [place] [id number] Computer Systems Consultant: MD Tatum Santoyo B3 1:10 Normal <1:10 [facility] Comment on above: Performed By: #### C MVG, LUPPRO, AT3A, PROCAC, PROSAC, CMVM, CMIS, TOXOG, TOXOM, HOCYS #### [address] [address] Computer Systems Consultant: Tanvir Macias MD #### APTMUT, AF5MUT, AMTHFR, ACOXA9, APARVP, ACOXAB #### [facility] [address], [place] [id number] Computer Systems Consultant: MD Tatum Santoyo B4 1:320 Abnormal <1:10 [facility] Comment on above: Performed By: #### C MVG, LUPPRO, AT3A, PROCAC, PROSAC, CMVM, CMIS, TOXOG, TOXOM, HOCYS #### [facility] [address] [place] [address] Computer Systems Consultant: Tanvir Macias MD #### APTMUT, AF5MUT, AMTHFR, ACOXA9, APARVP, ACOXAB #### [facility] [address] [place] [address] Computer Systems Consultant: MD Tatum Santoyo. B5 <1:10 Normal <1:10 [facility] Comment on above: Performed By: #### C MVG, LUPPRO, AT3A, PROCAC, PROSAC, CMVM, CMIS, TOXOG, TOXOM, HOCYS #### [address] [id number] Computer Systems Consultant: Tanvir Macias MD #### APTMUT, AF5MUT, AMTHFR, ACOXA9, APARVP, ACOXAB #### [address] [address] Computer Systems Consultant: MD Tatum Santoyo. B6 <1:10 Normal <1:10 [facility] Comment on above: Result Comment: (NOT E) INTERPRETIVE INFORMATION: Coxsackie B Virus Single positive antibody titers of greater than or equal to 1:80 may indicate past or current infection. Sero- conversion or an increase in titers between acute and convalescent sera of at least fourfold is considered strong evidence of current or recent infection. Performed By: [place] [id number] Music Mixer: Nadeem Mcarthur MD, PhD CLIA Number: [id number] Performed By: #### C MVG, LUPPRO, AT3A, PROCAC, PROSAC, CMVM, CMIS, TOXOG, TOXOM, HOCYS #### [place] [id number] Computer Systems Consultant: Tanvir Macias MD #### APTMUT, AF5MUT, AMTHFR, ACOXA9, APARVP, ACOXAB #### [address] [id number] Computer Systems Consultant: Enrique Arthur MD Factor V Mutationon 10-22-19 24 F 5 SPECIMEN Whole Blood Normal [facility] Comment on above: Performed By: #### C MVG, LUPPRO, AT3A, PROCAC, PROSAC, CMVM, CMIS, TOXOG, TOXOM, HOCYS #### [facility] [address] [place] [address] Computer Systems Consultant: Tanvir Macias MD #### APTMUT, AF5MUT, AMTHFR, ACOXA9, APARVP, ACOXAB #### [facility] [address] [place] [address] Computer Systems Consultant: Enrique Arthur MD FACTOR 5 MUTATION Negative Normal [facility] Comment on above: Result Comment: (NOT E) Indication for testing: Assess genetic risk for thrombosis. NEGATIVE: The factor V Leiden variant, c.1601G>A; p.[id number], was not detected. This does not exclude [...] function in the F5 gene variant c.1601G>A (p.[id number]). Legacy nomenclature: [id number] (1691G>A) CLINICAL SENSITIVITY: 20-50 percent of individuals with an isolated VTE have the FVL variant. METHODOLOGY: Polymerase chain reaction and fluorescence monitoring. ANALYTICAL SENSITIVITY AND SPECIFICITY: 99 percent. LIMITATIONS: Diagnostic errors can occur due to rare sequence variations. F5 gene mutations, other than p.Wjs768Rpv, will not be detected. This test was developed and its performance characteristics determined by [facility]. It has not been cleared or approved by the [place] Food and Drug Administration. This test was performed in a CLIA certified laboratory and is intended for clinical purposes. Counseling and informed consent are recommended for genetic testing. Consent forms are available online. Performed By: [facility] [address] [place] [address] Music Mixer: Nadeem Mcarthur MD, PhD CLIA Number: [id number] Performed By: #### C MVG, LUPPRO, AT3A, PROCAC, PROSAC, CMVM, CMIS, TOXOG, TOXOM, HOCYS #### [place] [address] Computer Systems Consultant: Tanvir Macias MD #### APTMUT, AF5MUT, AMTHFR, ACOXA9, APARVP, ACOXAB #### [place] [id number] Computer Systems Consultant: Enrique Arthur MD Coxsackie A9 Titeron 024 Coxsackie A9 Titer <1:8 Normal <1:8 [facility] Comment on above: Result Comment: (NOT E) INTERPRETIVE INFORMATION: Coxsackie A Serotype 9 Titer Single positive antibody titers of greater than 1:32 may indicate past or current infection. Seroconversion or an increase in titers between acute and convalescent sera of at least fourfold is considered strong evidence of current or recent infection. Performed By: [facility] [address] [place], [place] [id number] Music Mixer: Nadeem Mcarthur MD, PhD CLIA Number: [id number] Performed By: #### C MVG, LUPPRO, AT3A, PROCAC, PROSAC, CMVM, CMIS, TOXOG, TOXOM, HOCYS #### [address] [address] Computer Systems Consultant: Tanvir Macias MD #### APTMUT, AF5MUT, AMTHFR, ACOXA9, APARVP, ACOXAB #### [facility] [address], [place] [id number] Computer Systems Consultant: Enrique Arthur MD MTHFR Gene Mutationon 2023 MTHFR 1286 A>C Mut Negative Normal [facility] Comment on above: Performed By: #### C MVG, LUPPRO, AT3A, PROCAC, PROSAC, CMVM, CMIS, TOXOG, TOXOM, HOCYS #### [address] [address] Computer Systems Consultant: Tanvir Macias MD #### APTMUT, AF5MUT, AMTHFR, ACOXA9, APARVP, ACOXAB #### [facility] [address] [place], [place] [phone] Computer Systems Consultant: Enrique Arthur MD MTHFR 655C>T Mut Heterozygous Normal [facility] Comment on above: Performed By: #### C MVG, LUPPRO, AT3A, PROCAC, PROSAC, CMVM, CMIS, TOXOG, TOXOM, HOCYS #### [address] [address] Computer Systems Consultant: Tanvir Macias MD #### APTMUT, AF5MUT, AMTHFR, ACOXA9, APARVP, ACOXAB #### [facility] [address] [place], [place] [id number] Computer Systems Consultant: Enrique Arthur MD MTHFR Interpretation See Note Normal [facility] Comment on above: Result Comment: (NOT E) Indication for testing: Determine genetic contribution to hyperhomocysteinemia. Heterozygous MTHFR c.665C>T: One copy of the MTHFR variant c.665C>T (previously designated C677T) was detected; the c.1286A>C (previously designated W3889S) variant was not identified. The common variant [...] has an effect on cardiovascular disease. The [employer] Practice Guidelines indicate [...] a contributing factor to hyperhomocysteinemia. Variants Tested: c.665C>T(p.Sxq606Qav) and c.1286A>C(p.Itm463Nat). (legacy names C677T and E7072O, respectively). Clinical Sensitivity: Undefined; hyperhomocysteinemia is caused [...] developed and its performance characteristics determined by [facility]. It has not been cleared or approved by the [place] Food and Drug Administration. This test was performed in a CLIA certified laboratory and is intended for clinical purposes. Counseling and informed consent are recommended for genetic testing. Consent forms are available online. Performed By: [facility] [address] [place] [address] Music Mixer: Nadeem Mcarthur MD, PhD CLIA Number: [id number] Performed By: #### C MVG, LUPPRO, AT3A, PROCAC, PROSAC, CMVM, CMIS, TOXOG, TOXOM, HOCYS #### [facility] [address] [place] [address] Computer Systems Consultant: Tanvir Macias MD #### APTMUT, AF5MUT, AMTHFR, ACOXA9, APARVP, ACOXAB #### [facility] [address] [place] [address] Computer Systems Consultant: Enrique Arthur MD MTHFR SPECIMEN Whole Blood Normal [facility] Comment on above: Performed By: #### C MVG, LUPPRO, AT3A, PROCAC, PROSAC, CMVM, CMIS, TOXOG, TOXOM, HOCYS #### [address] [address] Computer Systems Consultant: Tanvir Macias MD #### APTMUT, AF5MUT, AMTHFR, ACOXA9, APARVP, ACOXAB #### [facility] [address] [place], [place] [id number] Computer Systems Consultant: Enrique Arthur MD PT Mutation [id number] 10-21-19 24 PT [id number] VARIANT Negative Normal [facility] Comment on above: Result Comment: (NOT E) Indication for testing: Assess genetic risk for thrombosis. NEGATIVE: The Factor II, prothrombin C80595V mutation, was not detected. Other causes of [...] Quintana, Ph.D. BACKGROUND INFORMATION: Prothrombin (F2) c.*97G>A (N04467F) Pathogenic Variant CHARACTERISTICS: The Factor II, c.*97G>A (K12882C) pathogenic variant is a common genetic risk [...] CAUSE: Homozygosity or heterozygosity for F2 c.*97G>A (H02145K). PATHOGENIC VARIANT TESTED: F2 c.*97G>A (Z81147Z). CLINICAL SENSITIVITY FOR VENOUS THROMBOSIS: Approximately 10 percent. METHODOLOGY: Polymerase chain reaction and fluorescence monitoring. ANALYTICAL SENSITIVITY AND SPECIFICITY: 99 percent. LIMITATIONS: Diagnostic errors can occur due to rare sequence variations. F2 gene variants, other than c.*97G>A (P60785S), will not be detected. This test was developed and its performance characteristics determined by [facility]. It has not been cleared or approved by the US Food and Drug Administration. This test was performed in a CLIA certified laboratory and is intended for clinical purposes. Counseling and informed consent are recommended for genetic testing. Consent forms are available online. Performed By: [facility] [address] [place] [address] Music Mixer: Nadeem Mcarthur MD, PhD CLIA Number: [id number] Performed By: #### C MVG, LUPPRO, AT3A, PROCAC, PROSAC, CMVM, CMIS, TOXOG, TOXOM, HOCYS #### [address] [phone] Computer Systems Consultant: Tanvir Macias MD #### APTMUT, AF5MUT, AMTHFR, ACOXA9, APARVP, ACOXAB #### [facility] [address] [place] [address] Computer Systems Consultant: Enrique Arthur MD PT PCR SPECIMEN Whole Blood Normal [facility] Comment on above: Performed By: #### C MVG, LUPPRO, AT3A, PROCAC, PROSAC, CMVM, CMIS, TOXOG, TOXOM, HOCYS #### [facility] [place], [place] [phone] Computer Systems Consultant: Tanvir Macias MD #### APTMUT, AF5MUT, AMTHFR, ACOXA9, APARVP, ACOXAB #### [facility] [address] [place] [address] Computer Systems Consultant: Enrique Arthur MD Parvovirus B19 Panelon 10-21 Parvovirus IgG B19 1.80 IV High <=0.90 [facility] Comment on above: Result Comment: (NOT [...] PROSAC, CMVM, CMIS, TOXOG, TOXOM, HOCYS #### [facility] [place], [place] [id number] Computer Systems Consultant: Tanvir Macias MD #### APTMUT, AF5MUT, AMTHFR, ACOXA9, APARVP, ACOXAB #### [facility] [address] [place] [address] Computer Systems Consultant: Enrique Arthur MD Parvovirus IgM B19 0.12 IV Normal <=0.90 [facility] Comment on above: Result Comment: (NOT E) INTERPRETIVE INFORMATION: Parvovirus B19 Antibody, IgM EFFECTIVE 07/04/2023 REFERENCE INTERVAL CHANGE Due to reagent kit small equipment operator recall, an alternate kit has been validated and implemented by [facility]. The following Reference Interval applies to this [...] levels of specific IgM antibodies. Performed By: [facility] [address] [place] [address] Music Mixer: Nadeem Mcarthur MD, PhD CLIA Number: [id number] Performed By: #### C MVG, LUPPRO, AT3A, PROCAC, PROSAC, CMVM, CMIS, TOXOG, TOXOM, HOCYS #### [facility] [address] [place] [address] Computer Systems Consultant: Tanvir Macias MD #### APTMUT, AF5MUT, AMTHFR, ACOXA9, APARVP, ACOXAB #### [employer] [facility] [address] [place] [address] Computer Systems Consultant: Enrique Arthur MD Antithrombin III [place] 10-18 Antithrombin III Act 106 % Normal 83-122 [facility] Comment on above: Result Comment: Patients receiving Hirudin may have a falsely decreased Antitrombin III Activity. Performed By: #### C MVG, LUPPRO, AT3A, PROCAC, PROSAC, CMVM, CMIS, TOXOG, TOXOM, HOCYS #### [facility] [address] [place] [phone] Computer Systems Consultant: Tanvir Macias MD #### APTMUT, AF5MUT, AMTHFR, ACOXA9, APARVP, ACOXAB #### [facility] [address] [place] [id number] Computer Systems Consultant: Enrique Arthur MD Lupus Anticoagulanton 2023 Anticardiolipin IgA 2.4 APL Normal 0.0-14.0 [facility] Comment on above: Result Comment: Reference Range: <14.0 Negative 14.0-20.0 Equivocal >20.0 Positive When results are Equivocal, it is recommended to retest after 4-6 weeks. Performed By: #### C MVG, LUPPRO, AT3A, PROCAC, PROSAC, CMVM, CMIS, TOXOG, TOXOM, HOCYS #### [address] [id number] Computer Systems Consultant: Tanvir Macias MD #### APTMUT, AF5MUT, AMTHFR, ACOXA9, APARVP, ACOXAB #### [address] [address] Computer Systems Consultant: Enrique Arthur MD Anticardiolipin IgG 2.8 GPL Normal 0.0-10.0 [facility] Comment on above: Result Comment: Reference Range: <10.0 Negative 10.0-40.0 Equivocal >40.0 Positive Performed By: #### C MVG, LUPPRO, AT3A, PROCAC, PROSAC, CMVM, CMIS, TOXOG, TOXOM, HOCYS #### [address] [phone] Computer Systems Consultant: Tanvir Macias MD #### APTMUT, AF5MUT, AMTHFR, ACOXA9, APARVP, ACOXAB #### [facility] [address] [place] [address] Computer Systems Consultant: Enrique Arthur MD Anticardiolipin IgM <0.8 Normal 0.0-10.0 [facility] Comment on above: Result Comment: Reference Range: <10.0 Negative 10.0-40.0 Equivocal >40.0 Positive Performed By: #### C MVG, LUPPRO, AT3A, PROCAC, PROSAC, CMVM, CMIS, TOXOG, TOXOM, HOCYS #### [address] [id number] Computer Systems Consultant: Tanvir Macias MD #### APTMUT, AF5MUT, AMTHFR, ACOXA9, APARVP, ACOXAB #### [facility] [address] [place] [address] Computer Systems Consultant: Enrique Arthur MD Dilute [place] Viper Negative [facility] Comment on above: Performed By: #### C MVG, LUPPRO, AT3A, PROCAC, PROSAC, CMVM, CMIS, TOXOG, TOXOM, HOCYS #### [address] [id number] Computer Systems Consultant: Tanvir Macias MD #### APTMUT, AF5MUT, AMTHFR, ACOXA9, APARVP, ACOXAB #### [facility] [address] [place] [address] Computer Systems Consultant: Enrique Arthur MD Miscellaneouson 10-18-2023 Send Out Report [facility] [id number] Normal [facility] Comment on above: Result Comment: UNIT Y Performed By: #### C MVG, LUPPRO, AT3A, PROCAC, PROSAC, CMVM, CMIS, TOXOG, TOXOM, HOCYS #### [address] [address] Computer Systems Consultant: Tanvir Macias MD #### APTMUT, AF5MUT, AMTHFR, ACOXA9, APARVP, ACOXAB #### [address] [id number] Computer Systems Consultant: Enrique Arthur MD Protein C Activityon 024 Protein C Activity 91 % Normal >80 [facility] Comment on above: Result Comment: Patients [...] PROSAC, CMVM, CMIS, TOXOG, TOXOM, HOCYS #### [facility] [address] [place] [phone] Computer Systems Consultant: Tanvir Macias MD #### APTMUT, AF5MUT, AMTHFR, ACOXA9, APARVP, ACOXAB #### [address] [phone] Computer Systems Consultant: Enrique Arthur MD Protein S Activityon 024 Protein S Activity 79 % Normal 59-130 [facility] Comment on above: Result Comment: Patients [...] PROSAC, CMVM, CMIS, TOXOG, TOXOM, HOCYS #### [facility] [address] [place] [address] [phone] Computer Systems Consultant: Tanvir Macias MD #### APTMUT, AF5MUT, AMTHFR, ACOXA9, APARVP, ACOXAB #### [address] [address] Computer Systems Consultant: Enrique Arthur MD Toxoplasma Ab,IgGon 10-18-19 24 Toxoplasma Ab,IgG 1.2 IU/mL Normal [facility] Comment on above: Result Comment: REFERENCE [...] PROSAC, CMVM, CMIS, TOXOG, TOXOM, HOCYS #### [facility] [address] [place] [address] Computer Systems Consultant: Tanvir Macias MD #### APTMUT, AF5MUT, AMTHFR, ACOXA9, APARVP, ACOXAB #### [address] [phone] Computer Systems Consultant: Enrique Arthur MD Toxoplasma Ab,IgMon 10-18-19 24 Toxoplasma Ab,IgM 0.56 Index Normal [facility] Comment on above: Result Comment: REFERENCE RANGE: <0.90 NON-REACTIVE 0.90 TO 0.99 INDETERMINANT >=1.00 REACTIVE Performed By: #### C MVG, LUPPRO, AT3A, PROCAC, PROSAC, CMVM, CMIS, TOXOG, TOXOM, HOCYS #### [facility] [address] [place] [address] Computer Systems Consultant: Tanvir Macias MD #### APTMUT, AF5MUT, AMTHFR, ACOXA9, APARVP, ACOXAB #### [facility] [address] [place] [address] Computer Systems Consultant: Enrique Arthur MD CMV Ab,IgGon 10-17-2023 CMV Ab,IgG 523.0 High <0.5 [facility] Comment on above: Result Comment: Reference [...] PROSAC, CMVM, CMIS, TOXOG, TOXOM, HOCYS #### [employer] [facility] [address] [place] [address] Computer Systems Consultant: Tanvir Macias MD #### APTMUT, AF5MUT, AMTHFR, ACOXA9, APARVP, ACOXAB #### [facility] [address] [place] [address] Computer Systems Consultant: Enrique Arthur MD CMV Ab,IgMon 10-17-2023 CMV Ab,IgM 0.2 Normal <0.7 [facility] Comment on above: Result Comment: Reference [...] CMIS, TOXOG, TOXOM, HOCYS #### [facility] [address] [place] [address] Computer Systems Consultant: Tanvir Macias MD #### APTMUT, AF5MUT, AMTHFR, ACOXA9, APARVP, ACOXAB #### [facility] [address] [place] [address] Computer Systems Consultant: Enrique Arthur MD Homocysteineon 10-17-2023 Homocysteine 5.7 umol/L Normal <15.0 [facility] Comment on above: Performed By: #### C MVG, LUPPRO, AT3A, PROCAC, PROSAC, CMVM, CMIS, TOXOG, TOXOM, HOCYS #### [address] [address] Computer Systems Consultant: Tanvir Macias MD #### APTMUT, AF5MUT, AMTHFR, ACOXA9, APARVP, ACOXAB #### [facility] [address] [place] [address] Computer Systems Consultant: Enrique Arthur MD Lupus Anticoagulanton 2023 aPTT Coag (Bld) [Time] 27.6 s Normal 23.0-36.5 [facility] Comment on above: Result Comment: IV Heparin Therapy Range: 66.0-92.0 sec Performed By: #### C MVG, LUPPRO, AT3A, PROCAC, PROSAC, CMVM, CMIS, TOXOG, TOXOM, HOCYS #### [facility] [address] [place] [address] Computer Systems Consultant: Tanvir Macias MD #### APTMUT, AF5MUT, AMTHFR, ACOXA9, APARVP, ACOXAB #### [facility] [address] [place] [address] Computer Systems Consultant: Enrique Arthur MD INR Coag (PPP) [Relative time] 1.0 {INR} Normal [facility] Comment on above: Result Comment: Therapeutic Range: Moderate Anticoagulant Intensity: INR = 2.0-3.0 High Anticoagulant Intensity: INR = 2.5-3.5 Performed By: #### C MVG, LUPPRO, AT3A, PROCAC, PROSAC, CMVM, CMIS, TOXOG, TOXOM, HOCYS #### [facility] [address] [place] [phone] Computer Systems Consultant: Tanvir Macias MD #### APTMUT, AF5MUT, AMTHFR, ACOXA9, APARVP, ACOXAB #### [facility] [address] [place] [address] Computer Systems Consultant: Enrique Arthur MD PT Coag (PPP) [Time] 13.5 s Normal 11.7-14.9 [facility] Comment on above: Performed By: #### C MVG, LUPPRO, AT3A, PROCAC, PROSAC, CMVM, CMIS, TOXOG, TOXOM, HOCYS #### [facility] [address] [place] [phone] Computer Systems Consultant: Tanvir Macias MD #### APTMUT, AF5MUT, AMTHFR, ACOXA9, APARVP, ACOXAB #### [facility] [address] [place] [address] Computer Systems Consultant: Enrique Arthur MD Basic Metabolic Panelon 12-0 Glucose [Mass/Vol] 97 mg/dL [facility] CBC without diffOrdered By: Mayra Victoria on 07-26-2023 Hematocrit (Bld) [Volume fraction] 34.8 % [facility] Hemoglobin (Bld) [Mass/Vol] 11.3 g/dL [facility] Platelets (Bld) [#/Vol] 292 10*3/uL [facility] Rbc Mcv (Fl) By Automated Count 83.5 [facility] HIV 1&2 AB/AG Screen (P24 AG )on 07-26-2023 HIV 1&2 AB/AG Non-Reactive [facility] Hemoglobin A1con 07-26-2023 HbA1c (Bld) [Mass fraction] 5.0 % 4.0 - 6.0 % [facility] Hepatitis B surface antigeno n 07-26-2023 Hepatitis B Surface Antigen Negative [facility] No Panel InformationOrdered By: Mayra Victoria on 07-26-2023 [facility] Rubella IGG immune statuson 07-26-2023 Rubella immune IgG 5.26 [facility] Syphilis Total(Unknown Syphi lis Status)on 07-26-2023 Syphilis Non-Reactive [facility] TSHon 07-26-2023 TSH Qn 1.99 m[IU]/L [facility] Type and screenon 07-26-2023 Abo/Rh(D) Positive [facility] CBC AUTO DIFFon 07-28-2022 BASO # 0.0 103/ul Normal 0.0-0.1 [facility] Comment on above: Performed By: #### H CVPCRR #### [facility] [address] [place] [address] [address] Carleen Underwood Basophils/100 WBC (Bld) 0.3 % Normal 0.2-2.0 [facility] Comment on above: Performed By: #### H CVPCRR #### [facility] [address] [place] [address] Dr. Carleen Underwood EO # 0.2 103/ul Normal 0.0-0.[address] [facility] Comment on above: Performed By: #### H CVPCRR #### [facility] [address] [place] [address] [address] Carleen Underwood Eosinophils/100 WBC (Bld) 1.5 % Normal 0.9-7.[address] [facility] Comment on above: Performed By: #### H CVPCRR #### [facility] [address] [place] [address] [address] Carleen Underwood Erythrocyte distribution width (RBC) [Ratio] 14.9 % Normal 11.0-15.0 [facility] Comment on above: Performed By: #### H CVPCRR #### [facility] [address] [place] [address] Dr. Carleen Underwood Hematocrit (Bld) [Volume fraction] 30.7 % Critically low 36.0-48.0 [facility] Comment on above: Performed By: #### H CVPCRR #### [facility] [address] [place] [address] Dr. Carleen Underwood Hemoglobin (Bld) [Mass/Vol] 9.4 g/dL Critically low 12.0-16.0 [facility] Comment on above: Performed By: #### H CVPCRR #### [facility] [address] [place] [address] Dr. Carleen Underwood IG # 0.07 10e3/ul Critically high 0.00-0.03 [facility] Comment on above: Performed By: #### H CVPCRR #### [facility] [address] [place] [address] Dr. Carleen Underwood IG % 0.6 % Critically high 0.0-0.5 [facility] Comment on above: Performed By: #### H CVPCRR #### [facility] [address] [place] [address] Dr. Carleen Underwood LYMPH # 2.7 103/ul Normal 1.2-3.8 [facility] Comment on above: Performed By: #### H CVPCRR #### [facility] [address] [place] [address] Dr. Carleen Underwood Lymphocytes/100 WBC (Bld) 24.1 % Normal 20.5-60.0 [facility] Comment on above: Performed By: #### H CVPCRR #### [facility] [address] [place] [address] Dr. Carleen Underwood MANUAL DIFF REQ NO Normal [facility] Comment on above: Performed By: #### H CVPCRR #### [facility] [address] [place] [address] Dr. Carleen Underwood MCH (RBC) [Entitic mass] 23.3 pg Critically low 26.7-34.0 [facility] Comment on above: Performed By: #### H CVPCRR #### [facility] [address] [place] [address] Dr. Carleen Underwood MCHC (RBC) [Mass/Vol] 30.6 g/dL Normal 29.9-35.2 [facility] Comment on above: Performed By: #### H CVPCRR #### [facility] [address] [place] [address] Dr. Carleen Underwood MCV (RBC) [Entitic vol] 76.2 fL Critically low 81.0-99.0 [facility] Comment on above: Performed By: #### H CVPCRR #### [facility] [address] [place] [address] Dr. Carleen Underwood MONO # 0.7 103/ul Normal 0.3-0.8 [facility] Comment on above: Performed By: #### H CVPCRR #### [facility] [address] [place] [address] Dr. Carleen Underwood Monocytes/100 WBC (Bld) 5.8 % Normal 1.7-12.0 [facility] Comment on above: Performed By: #### H CVPCRR #### [facility] [address] [place] [address] Dr. Carleen Underwood NEUT # 7.6 103/ul Critically high 1.4-6.5 [facility] Comment on above: Performed By: #### H CVPCRR #### [facility] [address] [place] [address] Dr. Carleen Underwood Neutrophils/100 WBC (Bld) 67.7 % Normal 43.0-75.0 [facility] Comment on above: Performed By: #### H CVPCRR #### [facility] [address] [place] [address] Dr. Carleen Underwood Platelet mean volume (Bld) [Entitic vol] 11.1 fL Normal 9.5-13.5 [facility] Comment on above: Performed By: #### H CVPCRR #### [facility] [address] [place] [address] Dr. Carleen Underwood PLT 242 103/ul Normal 150-[address] [facility] Comment on above: Performed By: #### H CVPCRR #### [facility] [address] [place] [address] Dr. Carleen Underwood RBC 4.03 106/ul Critically low 4.20-5.40 [facility] Comment on above: Performed By: #### H CVPCRR #### [facility] [address] [place] [address] Dr. Carleen Underwood WBC 11.2 103/ul Critically high 4.0-11.0 [facility] Comment on above: Performed By: #### H CVPCRR #### [facility] [address] [place] [address] Dr. Carleen Underwood CBC AUTO DIFFon 07-27-2022 BASO # 0.0 103/ul Normal 0.0-0.1 [facility] Comment on above: Performed By: #### G LU1HR #### [facility] [address] [place] [address] Dr. Carleen Underwood Basophils/100 WBC (Bld) 0.5 % Normal 0.2-2.0 [facility] Comment on above: Performed By: #### G LU1HR #### [facility] [address] [place] [address] Dr. Carleen Underwood EO # 0.1 103/ul Normal 0.0-0.7 [facility] Comment on above: Performed By: #### G LU1HR #### [facility] [address] [place] [address] Dr. Carleen Underwood Eosinophils/100 WBC (Bld) 1.2 % Normal 0.9-7.0 [facility] Comment on above: Performed By: #### G LU1HR #### [facility] [address] [place] [address] Dr. Carleen Underwood Erythrocyte distribution width (RBC) [Ratio] 14.9 % Normal 11.0-15.0 [facility] Comment on above: Performed By: #### G LU1HR #### [facility] [address] [place] [address] Dr. Carleen Underwood Hematocrit (Bld) [Volume fraction] 29.6 % Critically low 36.0-48.0 [facility] Comment on above: Performed By: #### G LU1HR #### [facility] [address] [place] [address] Dr. Carleen Underwood Hemoglobin (Bld) [Mass/Vol] 9.3 g/dL Critically low 12.0-16.0 [facility] Comment on above: Performed By: #### G LU1HR #### [facility] [address] [place] [address] Dr. Carleen Underwood IG # 0.04 10e3/ul Critically high 0.00-0.03 [facility] Comment on above: Performed By: #### G LU1HR #### [facility] [address] [place] [address] Dr. Carleen Underwood IG % 0.5 % Normal 0.0-0.5 [facility] Comment on above: Performed By: #### G LU1HR #### [facility] [address] [place] [address] Dr. Carleen Underwood LYMPH # 2.1 103/ul Normal 1.2-3.8 [facility] Comment on above: Performed By: #### G LU1HR #### [facility] [address] [place] [address] Dr. Carleen Underwood Lymphocytes/100 WBC (Bld) 25.5 % Normal 20.5-60.0 [facility] Comment on above: Performed By: #### G LU1HR #### [facility] [address] [place] [address] Dr. Carleen Underwood MANUAL DIFF REQ NO Normal [facility] Comment on above: Performed By: #### G LU1HR #### [facility] [address] [place] [address] Dr. Carleen Underwood MCH (RBC) [Entitic mass] 23.2 pg Critically low 26.7-34.0 [facility] Comment on above: Performed By: #### G LU1HR #### [facility] [address] [place] [address] Dr. Carleen Underwood MCHC (RBC) [Mass/Vol] 31.4 g/dL Normal 29.9-35.2 [facility] Comment on above: Performed By: #### G LU1HR #### [facility] [address] [place] [address] Dr. Carleen Underwood MCV (RBC) [Entitic vol] 73.8 fL Critically low 81.0-99.0 [facility] Comment on above: Performed By: #### G LU1HR #### [facility] [address] [place] [address] Dr. Carleen Underwood MONO # 0.5 103/ul Normal 0.3-0.8 [facility] Comment on above: Performed By: #### G LU1HR #### [facility] [address] [place] [address] Dr. Carleen Underwood Monocytes/100 WBC (Bld) 6.2 % Normal 1.7-12.0 [facility] Comment on above: Performed By: #### G LU1HR #### [facility] [address] [place] [address] Dr. Carleen Underwood NEUT # 5.4 103/ul Normal 1.4-6.5 [facility] Comment on above: Performed By: #### G LU1HR #### [facility] [address] [place] [address] Dr. Carleen Underwood Neutrophils/100 WBC (Bld) 66.1 % Normal 43.0-75.0 [facility] Comment on above: Performed By: #### G LU1HR #### [facility] [address] [place] [address] Dr. Carleen Underwood Platelet mean volume (Bld) [Entitic vol] 11.3 fL Normal 9.5-13.[address] [facility] Comment on above: Performed By: #### G LU1HR #### [facility] [address] [place] [address] Dr. Carleen Underwood PLT 238 103/ul Normal 150-[address] [facility] Comment on above: Performed By: #### G LU1HR #### [facility] [address] [place] [address] Dr. Carleen Underwood RBC 4.01 106/ul Critically low 4.20-5.40 [facility] Comment on above: Performed By: #### G LU1HR #### [facility] [address] [place] [address] Dr. Carleen Underwood WBC 8.2 103/ul Normal 4.0-11.0 [facility] Comment on above: Performed By: #### G LU1HR #### [facility] [address] [place] [address] Dr. Carleen Underwood Covid-19 PCR ([facility])on SARS-CoV-2 (COVID-19) RNA HUY+probe Ql (Unsp spec) Not detected Normal NOT DETECTED [facility] Comment on above: Result Comment: When [...] for this test is supported by the [place] of [employer] and [employer] Service's declaration that [...] #### H CVPCRR #### [facility] [address] [place] [address] Dr. Carleen Underwood DRUG SCREEN RAPID (URINE)on 07-27-2022 AMP Negative Normal NEGATIVE [facility] Comment on above: Performed By: #### G TT3P #### [facility] [address] [place] [address] Dr. Carleen Underwood BAR Negative Normal NEGATIVE [facility] Comment on above: Performed By: #### G TT3P #### [facility] [address] [place], [place] [id number] Dr. Carleen Underwood BUP Negative Normal NEGATIVE [facility] Comment on above: Performed By: #### G TT3P #### [facility] [address] [place] [address] Dr. Carleen Underwood BZO Negative Normal NEGATIVE [facility] Comment on above: Performed By: #### G TT3P #### [facility] [address] [place] [address] Dr. Carleen Underwood EMIGDIO Negative Normal NEGATIVE [facility] Comment on above: Performed By: #### G TT3P #### [facility] [address] [place] [address] Dr. Carleen Underwood CUT-OFFS SEE BELOW Normal [facility] Comment on above: Result Comment: AMP (Amphetamine): [...] #### G TT3P #### [facility] [address] [place] [address] Dr. Carleen Underwood DRUG CUT HEADER DRUG CLASS TEST SYST EM CUT-OFF CONCENTRATIONS ARE FOLLOWS: Normal [facility] Comment on above: Performed By: #### G TT3P #### [facility] [address] [place] [address] Dr. Carleen Underwood mAMP Negative Normal NEGATIVE [facility] Comment on above: Performed By: #### G TT3P #### [facility] [address] [place] [address] Dr. Carleen Underwood MTD Negative Normal NEGATIVE [facility] Comment on above: Performed By: #### G TT3P #### [facility] [address] [place] [address] Dr. Carleen Underwood OPI Negative Normal NEGATIVE [facility] Comment on above: Performed By: #### G TT3P #### [facility] [address] [place] [address] Dr. Carleen Underwood OXY Negative Normal NEGATIVE [facility] Comment on above: Performed By: #### G TT3P #### [facility] [address] [place] [address] Dr. Carleen Underwood PCP Negative Normal NEGATIVE [facility] Comment on above: Performed By: #### G TT3P #### [facility] [address] [place] [address] Dr. Carleen Underwood PPX Negative Normal NEGATIVE [facility] Comment on above: Performed By: #### G TT3P #### [facility] [address] [place] [address] Dr. Carleen Underwood TCA Negative Normal NEGATIVE [facility] Comment on above: Performed By: #### G TT3P #### [facility] [address] [place] [address] Dr. Carleen Underwood THC Negative Normal NEGATIVE [facility] Comment on above: Performed By: #### G TT3P #### [facility] [address] [place] [address] Dr. Carleen Underwood TYPE AND SCREENon 07-27-2022 TYPE AND SCREEN Negative Normal [facility] Comment on above: Performed By: #### G TT3P #### [facility] [address] [place] [address] Dr. Carleen Underwood US PREG AMNIOTIC FLUID [...] FOUZIA CALERO Date: 2022-07-12 16:24 Normal [facility] US PREG BIOPHY W NON STRESSo [...] 2022-07-09 16:35 Normal [facility] US PREG BIOPHY W NON STRESSo [...] 2022-07-06 17:28 Normal [facility] GROUP B STREP CULTUREon 06-26 S. agalactiae Ag Ql (Unsp spec) Culture Observations: NEGATIVE FOR GROUP B STREPTOCOCCUS. Normal [facility] Comment on above: Performed By: #### G TT3P #### [facility] [address] [place] [address] Dr. Carleen Underwood US PREG GROWTHon 07-05-2022 [...] Marroquin was notified of these findings by special education coordinator at time of imaging. 3. Biparietal diameter is at 8th percentile. Electronically authenticated by: FOUZIA CALERO Date: 2022-07-05 16:58 Normal [facility] US PREG GROWTHon 06-11-2022 US PREG GROWTH [...] by: FOUZIA CALERO Date: 2022-06-11 16:22 Normal [facility] US PREG INCOMPLETE ANATOMYon 06-11-2022 US PREG [...] 2022-06-11 16:[address] [facility] US PREG INCOMPLETE ANATOMYon 05-14-2022 US [...] 2022-05-14 17:15 Normal [facility] GTT 3 HR PREGon 04-24-2022 Glucose [Mass/Vol] 91 mg/dL Normal 74-[address] [facility] Comment on above: Performed By: #### G TT3P #### [facility] [address] [address] [address] Carleen Underwood Glucose [Mass/Vol] 141 mg/dL Normal [facility] Comment on above: Performed By: #### G TT3P #### [facility] [address] [address] [address] Carleen Underwood Glucose [Mass/Vol] 103 mg/dL Normal [facility] Comment on above: Performed By: #### G TT3P #### [facility] [address] [address] [address] Carleen Underwood Glucose [Mass/Vol] 75 mg/dL Normal [facility] Comment on above: Performed By: #### G TT3P #### [facility] [address] [address] [address] Carleen Underwood US PREG INCOMPLETE ANATOMYon [...] cervical os Normal ventricular outflow tracts Normal [facility] PAP ACOG PANEL 2: 30 to 65on 04-20-2022 . . Normal [facility] Comment on above: Result Comment: Perf ormed at: WB Performed By: #### [id number] #### [facility] [address] [address] [address] Carleen Underwood Age Gdln ACOG Testing - Normal [facility] Comment on above: Performed By: #### [id number] #### [facility] [address] [address] [address] Carleen Underwood DIAGNOSIS: Comment Normal [facility] Comment on above: Result Comment: NEGA TIVE FOR INTRAEPITHELIAL LESION OR MALIGNANCY. Performed at: WB Performed By: #### [id number] #### [facility] [address] [address] [address] Carleen Underwood HPV Aptima Negative Normal Negative [facility] Comment on above: Result Comment: This nucleic acid amplification test detects fourteen high-risk HPV types (16,18,31,33,35,39,45,51,52,56,58,59,66,68) without differentiation. Performed at: =G Performed By: #### [id number] #### [facility] [address] [address] [address] Carleen Underwood Methodology: Comment Normal [facility] Comment on above: Result Comment: This liquid based ThinPrep(R) pap test was screened with the use of an image guided system. Performed at: WB Performed By: #### [id number] #### [facility] [address] [address] [address] Carleen Underwood Note: Comment Normal [facility] Comment on above: Result Comment: The Pap smear is a screening test designed to aid in the detection of premalignant and malignant conditions of the uterine cervix. It is not a diagnostic procedure and should not be used as the sole means of detecting cervical cancer. Both false-positive and false-negative reports do occur. . Performed at: WB Performed By: #### [id number] #### [facility] [address] [place] [address] Dr. Carleen Underwood Performed by: Comment Normal [facility] Comment on above: Result Comment: Carol Aguilar, Despatch Clerk Performed at: WB Performed By: #### [id number] #### [facility] [address] [place] [address] Dr. Carleen Underwood Specimen adequacy: Comment Normal [facility] Comment on above: Result Comment: Sati sfactory for evaluation. No endocervical component is identified. Performed at: WB Performed By: #### [id number] #### [facility] [address] [place] [address] Dr. Carleen Underwood CHLAMYDIA/GONOCOCCUS HUY (SW AB/URINE/PAPon 04-19-2022 Chlamydia trachomatis, HUY Negative Normal Negative [facility] Comment on above: Performed By: #### H CVPCRR #### [facility] [address] [place] [address] Dr. Carleen Underwood Neisseria gonorrhoeae, HUY Negative Normal Negative [facility] Comment on above: Performed By: #### H CVPCRR #### [facility] [address] [place] [address] Dr. Carleen Underwood VAGINITIS/VAGINOSIS DNA PROB True 04-19-2022 Priya species Negative Normal Negative [facility] Comment on above: Performed By: #### G LU1HR #### [facility] [address] [place] [address] Dr. Carleen Underwood Gardnerella vaginalis Negative Normal Negative [facility] Comment on above: Performed By: #### G LU1HR #### [facility] [address] [place] [address] Dr. Carleen Underwood Trichomonas vaginalis Negative Normal Negative [facility] Comment on above: Performed By: #### G LU1HR #### [facility] [address] [place] [address] Dr. Carleen Underwood GLUCOSE - 1HRon 04-17-2022 Glucose [Mass/Vol] 150 mg/dL Critically high 74-106 [facility] Comment on above: Performed By: #### G LU1HR #### [facility] [address] [place] [address] Dr. Carleen Underwood HEMOGRAM AND PLATELon 2021 Hematocrit (Bld) [Volume fraction] 31.9 % Critically low 36.0-48.0 [facility] Comment on above: Performed By: #### H H #### [facility] [address] [place] [address] Dr. Carleen Underwood Hemoglobin (Bld) [Mass/Vol] 10.3 g/dL Critically low 12.0-16.0 [facility] Comment on above: Performed By: #### H H #### [facility] [address] [place] [address] Dr. Carleen Underwood MCH (RBC) [Entitic mass] 26.6 pg Critically low 26.7-34.0 [facility] Comment on above: Performed By: #### H H #### [facility] [address] [place] [address] Dr. Carleen Underwood MCHC (RBC) [Mass/Vol] 32.3 g/dL Normal 29.9-35.2 [facility] Comment on above: Performed By: #### H H #### [facility] [address] [place] [address] Dr. Carleen Underwood MCV (RBC) [Entitic vol] 82.4 fL Normal 81.0-99.0 [facility] Comment on above: Performed By: #### H H #### [facility] [address] [place] [address] Dr. Carleen Underwood PLT 233 103/ul Normal 150-[address] [facility] Comment on above: Performed By: #### H H #### [facility] [address] [place] [address] Dr. Carleen Underwood RBC 3.87 106/ul Critically low 4.20-5.[address] [facility] Comment on above: Performed By: #### H H #### [facility] [address] [address] [address] Carleen Underwood WBC 8.5 103/ul Normal 4.0-11.0 [facility] Comment on above: Performed By: #### H H #### [facility] [address] [address] [address] Carleen Underwood AFP MATERNAL FOR SPINA BIFID Aon 03-22-2022 AFP MoM 1.08 Normal [facility] Comment on above: Performed By: #### H CVPCRR #### [facility] [address] [address] [address] Carleen Underwood AFP Value 43.1 ng/mL Normal [facility] Comment on above: Performed By: #### H CVPCRR #### [facility] [address] [address] [address] Carleen Underwood AFP, Serum for Spina Bifida Report Normal [facility] Comment on above: Performed By: #### H CVPCRR #### [facility] [address] [address] [address] Carleen Underwood Comment Comment Normal [facility] Comment on above: Result Comment: Re Quick, Ph.D., [facility] Director . References: Available Upon Request. . Multiples Of Median Cutoffs For AFP Elevations [place] 2.5 Black 2.8 IDD 2.0 Twins 4.5 Abbreviation Definitions IDD - Insulin Dep Diabetes OSBR - Open Spina Bifida Risk . For further inquiries contact [facility] at [phone]. . This test was developed and its performance characteristics determined by [employer]. It has not been cleared or approved by the Food and Drug Administration. Performed By: #### H CVPCRR #### [facility] [address] [address] [address] Carleen Marie Age Collection Date 19.4 weeks Normal [facility] Comment on above: Performed By: #### H CVPCRR #### [facility] [address] [address] [address] Carleen Underwood Gestat, Age Based on LMP Normal [facility] Comment on above: Result Comment: Reca lculations are not recommended when gestational dating by LMP and ultrasound are within 10 days. Performed By: #### H CVPCRR #### [facility] [address] [place] [address] Dr. Carleen Underwood Insulin Dep Diabetes No Normal [facility] Comment on above: Performed By: #### H CVPCRR #### [facility] [address] [place] [address] Dr. Carleen Underwood Interpretation Comment Normal [facility] Comment on above: Result Comment: Inte rpretation: [...] Customer Services to discuss available options. The [employer] recommends amniocentesis be offered to women age 35 and older. Performed By: #### H CVPCRR #### [facility] [address] [place] [place] [address] Dr. Carleen Underwood [age] Normal [facility] Comment on above: Performed By: #### H CVPCRR #### [facility] [address] [place] [address] Dr. Carleen Underwood Multiple Gestation No Normal [facility] Comment on above: Performed By: #### H CVPCRR #### [facility] [address] [place] [address] Dr. Carleen Underwood OSBR Risk 1 [place] 9540 Normal [facility] Comment on above: Performed By: #### H CVPCRR #### [facility] [address] [place] [address] Dr. Carleen Underwood PDF . Normal [facility] Comment on above: Performed By: #### H CVPCRR #### [facility] [address] [place] [address] Dr. Carleen Underwood Race Normal [facility] Comment on above: Performed By: #### H CVPCRR #### [facility] [address] [place], [place] [address] Dr. Carleen Underwood Test Results: Negative Normal [facility] Comment on above: Performed By: #### H CVPCRR #### [facility] [address] [place], [place] [address] Dr. Carleen Underwood US PREG ANATOMY SINGLEon [...] by: FOUZIA CALERO Date: 2022-03-19 17:04 Normal [facility] GLUCOSE - 1HRon 02-14-2022 Glucose [Mass/Vol] 107 mg/dL Critically high 74-[address] [facility] Comment on above: Performed By: #### H CVPCRR #### [facility] [address] [address] [address] Carleen Underwood HEP B SURFACE ANTIGEN SCREEN on 01-13-2022 HBsAg Screen Negative Normal Negative [facility] Comment on above: Performed By: #### H BSANS #### [facility] [address] [address] [address] Carleen Underwood HEPATITIS C VIRUS AB W/ REFL EX QUANTon 01-13-2022 HCV AB <0.1 Normal 0.0-0.9 [facility] Comment on above: Performed By: #### H CVPCRR #### [facility] [address] [place] [address] Dr. Carleen Undewrood Interpretation: Comment Normal [facility] Comment on above: Result Comment: Nega tive Not infected with HCV, unless recent infection is suspected or other evidence exists to indicate HCV infection. Performed By: #### H CVPCRR #### [facility] [address] [place] [address] Dr. Carleen Underwood HIV 1 AND 2 WITH REFLEXon HIV Screen 4th Generation wRfx Non-Reactive Normal Non Reactive [facility] Comment on above: Result Comment: HIV Negative HIV-1/HIV-2 antibodies and HIV-1 p24 antigen were NOT detected. There is no laboratory evidence of HIV infection. Performed By: #### G LU1HR #### [facility] [address] [place] [address] Dr. Carleen Underwood RPR QUANTon 01-13-2022 Rapid Plasma Reagin, Quant Non-Reactive Normal NonRea<1:[address] [facility] Comment on above: Result Comment: Plea Note: This test does not meet current guidelines for screening and diagnosis of syphilis. This test is intended for following treatment response in patients being treated for syphilis infection. To screen for syphilis infection, a reflex cascade that includes both RPR and a treponema-specific assay should be utilized, such as Treponema pallidum (Syphilis) Screening [place] (091835) or Rapid Plasma Reagin (RPR) Test With Reflex to Quantitative RPR and Confirmatory Treponema pallidum Antibodies (946280). Performed By: #### H CVPCRR #### [facility] [address] [place] [address] Dr. Carleen Underwood RUBELLA AB IGGon 01-13-2022 Rubella Antibodies, IgG 4.86 index Normal Immune >0.99 [facility] Comment on above: Result Comment: Non- immune <0.90 Equivocal 0.90 - 0.99 Immune >0.99 Performed By: #### R UBIGG #### [facility] [address] [place] [address] Dr. Carleen Underwood CBC AUTO DIFFon 01-12-2022 BASO # 0.0 103/ul Normal 0.0-0.1 [facility] Comment on above: Performed By: #### C BC #### [facility] [address] [place] [address] Dr. Carleen Underwood Basophils/100 WBC (Bld) 0.4 % Normal 0.2-2.0 [facility] Comment on above: Performed By: #### C BC #### [facility] [address] [place] [address] Dr. Carleen Underwood EO # 0.1 103/ul Normal 0.0-0.7 [facility] Comment on above: Performed By: #### C BC #### [facility] [address] [place] [address] Dr. Carleen Underwood Eosinophils/100 WBC (Bld) 1.1 % Normal 0.9-7.[address] [facility] Comment on above: Performed By: #### C BC #### [facility] [address] [place] [address] Dr. Carleen Underwood Erythrocyte distribution width (RBC) [Ratio] 14.5 % Normal 11.0-15.0 [facility] Comment on above: Performed By: #### C BC #### [facility] [address] [place] [address] Dr. Carleen Underwood Hematocrit (Bld) [Volume fraction] 35.8 % Critically low 36.0-48.[address] [facility] Comment on above: Performed By: #### C BC #### [facility] [address] [address] [address] Carleen Underwood Hemoglobin (Bld) [Mass/Vol] 11.2 g/dL Critically low 12.0-16.0 [facility] Comment on above: Performed By: #### C BC #### [facility] [address] [place] [address] Dr. Carleen Underwood IG # 0.02 10e3/ul Normal 0.00-0.03 [facility] Comment on above: Performed By: #### C BC #### [facility] [address] [place] [address] Dr. Carleen Underwood IG % 0.4 % Normal 0.0-0.5 [facility] Comment on above: Performed By: #### C BC #### [facility] [address] [place] [address] Dr. Carleen Underwood LYMPH # 1.6 103/ul Normal 1.2-3.8 [facility] Comment on above: Performed By: #### C BC #### [facility] [address] [place] [address] Dr. Carleen Underwood Lymphocytes/100 WBC (Bld) 27.9 % Normal 20.5-60.0 [facility] Comment on above: Performed By: #### C BC #### [facility] [address] [place] [address] Dr. Carleen Underwood MANUAL DIFF REQ NO Normal [facility] Comment on above: Performed By: #### C BC #### [facility] [address] [place] [address] Dr. Carleen Underwood MCH (RBC) [Entitic mass] 26.1 pg Critically low 26.7-34.[address] [facility] Comment on above: Performed By: #### C BC #### [facility] [address] [place] [address] Dr. Carleen Underwood MCHC (RBC) [Mass/Vol] 31.3 g/dL Normal 29.9-35.[address] [facility] Comment on above: Performed By: #### C BC #### [facility] [address] [address] [address] Carleen Underwood MCV (RBC) [Entitic vol] 83.4 fL Normal 81.0-99.0 [facility] Comment on above: Performed By: #### C BC #### [facility] [address] [address] [address] Carleen Underwood MONO # 0.4 103/ul Normal 0.3-0.8 [facility] Comment on above: Performed By: #### C BC #### [facility] [address] [place] [address] Dr. Carleen Underwood Monocytes/100 WBC (Bld) 6.2 % Normal 1.7-12.0 [facility] Comment on above: Performed By: #### C BC #### [facility] [address] [place] [address] Dr. Carleen Underwood NEUT # 3.7 103/ul Normal 1.4-6.5 [facility] Comment on above: Performed By: #### C BC #### [facility] [address] [place] [address] Dr. Carleen Underwood Neutrophils/100 WBC (Bld) 64.0 % Normal 43.0-75.0 [facility] Comment on above: Performed By: #### C BC #### [facility] [address] [place] [address] Dr. Carleen Underwood Platelet mean volume (Bld) [Entitic vol] 10.3 fL Normal 9.5-13.5 [facility] Comment on above: Performed By: #### C BC #### [facility] [address] [place] [address] Dr. Carleen Underwood PLT 229 103/ul Normal 150-[address] [facility] Comment on above: Performed By: #### C BC #### [facility] [address] [place] [address] Dr. Carleen Underwood RBC 4.29 106/ul Normal 4.20-5.[address] [facility] Comment on above: Performed By: #### C BC #### [facility] [address] [place] [address] Dr. Carleen Underwood WBC 5.7 103/ul Normal 4.0-11.0 [facility] Comment on above: Performed By: #### C BC #### [facility] [address] [place] [address] Dr. Carleen Underwood CULTURE URINEon 01-12-2022 CULTURE URINE Culture Observations : LIGHT GROWTH OF MIXED GENITAL YULI. NO POTENTIAL PATHOGENS SEEN. Normal [facility] Comment on above: Performed By: #### U RCX #### [facility] [address] [place] [address] Dr. Carleen Underwood GLYCOHEMOGLOBIN A1Con 2021 ADA RECOMMENDATION SEE BELOW Normal [facility] Comment on above: Result Comment: ADA RECOMMENDED LIMIT 4.0 - 6.0 ADA THERAPEUTIC TARGET < 7.0 ACTION SUGGESTED > 7.0 Performed By: #### G LU1HR #### [facility] [address] [place] [address] Dr. Carleen Underwood Glucose [Mass/Vol] 100 mg/dL Normal [facility] Comment on above: Performed By: #### G LU1HR #### [facility] [address] [place] [address] Dr. Carleen Underwood HbA1c (Bld) [Mass fraction] 5.1 % Normal 4.5-6.2 [facility] Comment on above: Performed By: #### G LU1HR #### [facility] [address] [place] [address] Dr. Carleen Underwood EMILY BOX TEST PT SEND OUTo n 01-12-2022 SENT TO REF LAB 01/12/[address]22 [address] [facility] Comment on above: Performed By: #### H CVPCRR #### [facility] [address] [place] [address] Dr. Carleen Underwood TYPE AND SCREENon 01-12-2022 TYPE AND SCREEN Negative Normal [facility] Comment on above: Performed By: #### T NS #### [facility] [address] [place] [address] Dr. Carleen Underwood US PREG TVon 12-29-2021 [...] by: BRANDI ANN Date: 2021-12-29 16:07 Normal [facility] Coding Summary.on 02-12-2020 Coding Summary. CODING DATE: 020 [facility] STATUS: Home (Routine DC) PAYOR: Commercial Insurance [...] Date Saved: 02/12/2020 10:10 am Normal [facility] Physician Orderon 02-07-2020 Physician Order [id number] Normal [facility] Vital Signs Date Time Vital Sign Value Performing Clinician Facility 07-15-2023 13:00-0500 Body height 170.81 cm Chery Aranda Other [facility] Other 07-15-2023 13:00-0500 Body mass index (BMI) [Ratio] 39.95 kg/m2 Chery Aranda Other [facility] Other 07-15-2023 13:00-0500 Body weight 116.58 kg Chery Aranda Other [facility] Other 07-15-2023 13:00-0500 Diastolic blood pressure 74 mm[Hg] Chery Aranda Other [facility] Other 07-15-2023 13:00-0500 Systolic blood pressure 107 mm[Hg] Chery Aranda Other [facility] Other 06-14-2023 13:30-0400 Body height 170.81 cm Chery Aranda Other [facility] Other 06-14-2023 13:30-0400 Body mass index (BMI) [Ratio] 39.42 kg/m2 Chery Aranda Other [facility] Other 06-14-2023 13:30-0400 Body weight 115.03 kg Chery Aranda Other [facility] Other 06-14-2023 13:30-0400 Diastolic blood pressure 72 mm[Hg] Chery Aranda Other [facility] Other 06-14-2023 13:30-0400 Systolic blood pressure 118 mm[Hg] Chery Aranda Other [facility] Other 05-16-2023 13:00-0400 Body height 170.81 cm Chery Aranda Other [facility] Other 05-16-2023 13:00-0400 Body mass index (BMI) [Ratio] 40.1 kg/m2 Chery Aranda Other [facility] Other 05-16-2023 13:00-0400 Body weight 117.03 kg Chery Aranda Other [facility] Other 05-16-2023 13:00-0400 Diastolic blood pressure 67 mm[Hg] Chery Aranda Other [facility] Other 05-16-2023 13:00-0400 Systolic blood pressure 102 mm[Hg] Chery Aranda Other [facility] Other 04-15-2023 13:00-0400 Body height 170.81 cm Chery Aranda Other [facility] Other 04-15-2023 13:00-0400 Body mass index (BMI) [Ratio] 41.35 kg/m2 Chery Aranda Other [facility] Other 04-15-2023 13:00-0400 Body weight 120.66 kg Chery Aranda Other [facility] Other 04-15-2023 13:00-0400 Diastolic blood pressure 71 mm[Hg] Chery Aranda Other [facility] Other 04-15-2023 13:00-0400 Systolic blood pressure 110 mm[Hg] Chery Aranda Other [facility] Other 03-22-2022 02:06-0400 Body weight 117.[address] BRANDI ANN [facility] Comment on above: Performed By: #### HCVPCRR #### [facility] [address] [place] [address] Dr. Carleen Underwood Encounters Encounter Date Encounter Type Care Provider Facility Start: 12-11-2023 End: 12-11-2023 ambulatory DINH LOPEZ Not Available Start: 11-27-2023 End: 11-27-2023 ambulatory FRIEDA MILLS Not Available Start: 11-13-2023 End: 11-13-2023 ambulatory DINH LOPEZ Not Available Start: 10-17-2023 End: 10-18-2023 [facility] Start: 10-16-2023 End: 10-16-2023 ambulatory DINH LOPEZ Not Available Start: 10-04-2023 Chart abstracting Chao Marmolejo MD Work Phone: [facility] Start: 09-18-2023 End: 09-18-2023 ambulatory FRIEDA MILLS Not Available Start: 08-20-2023 End: 08-20-2023 ambulatory DINH LOPEZ Not Available Start: 07-26-2023 End: 07-26-2023 ambulatory DINH LOPEZ Not Available Start: 07-15-2023 End: 07-15-2023 ambulatory Chery Aranda Other [facility] Other Start: 07-15-2023 Office outpatient vi sit 10 minutes Chery Aranda [facility] Start: 06-14-2023 End: 06-14-2023 ambulatory Chery Aranda Other [facility] Other Start: 06-14-2023 Office outpatient vi sit 10 minutes Chery Aranda [facility] Start: 05-16-2023 End: 05-16-2023 ambulatory Chery Aranda Other [facility] Other Start: 05-16-2023 Office outpatient vi sit 10 minutes Chery Aranda [facility] Start: 04-15-2023 End: 04-15-2023 ambulatory Chery Aranda Other [facility] Other Start: 04-15-2023 Office outpatient ne w 45 minutes Chery Aranda [facility] Start: 07-31-2022 End: 07-31-[address] DINH [...] Start: 02-14-2022 End: 02-15-[address] DINH AMRROQUIN Facility:[facility] Start: 01-12-2022 End: 01-13-[address] [...] Start: 10-22-2023 End: 10-22-2023 Patient encounter procedure [facility] Start: 04-26-2023 Influenza vaccination Influenza Vacc ine [facility] Start: 2011 Screening for malign ant neoplasm of cervix Pap Smear [facility] Start: 2009 DTaP,Tdap and Td Vaccines (1 - Tdap) DTaP,Tdap and Td Vaccines (1 - Tdap) [facility] Start: 2008 Adult BMI Screening Adult BMI Screen ing [facility] Start: 2002 Depression Screening Depression Scre ening [facility] Start: 2002 Tobacco Screening Tobacco Screening [facility] Immunizations Immunization Date Immunization Notes Care Provider Fa betty 09-08-2019 influenza virus vaccine, unspecified formulation Chao Ling MD Work Phone: [facility] Payers Date Payer Category Payer Private Health Insurance [employer] A ETNA POS [id number] 2017-Present [phone] [address] [place] [address] [id number] 1990 Unknown [id number] 2.840.1.876326.3.579.2.5 93 1990 Unknown [id number] 2.840.1.420823.3.579.2.5 93 1990 Unknown [id number] 2.16.840.1.500582.3.579.2.5 93 1990 Unknown [id number] 2.16.840.1.162570.3.579.2.5 1990 Unknown [id number] 2.16.840.1.933013.3.579.2.5 93 1990 Unknown [id number] 2.16.840.1.299017.3.579.2.5 93 1990 Unknown [id number] 2.16.840.1.862294.3.579.2.5 93 1990 Unknown [id number] 2.16.840.1.784292.3.579.2.5 93 1990 Unknown [id number] 2.16.840.1.422589.3.579.2.5 93 1990 Unknown [id number] 2.16.840.1.998442.3.579.2.5 93 1990 Unknown [id number] 2.16.840.1.024173.3.579.2.5 93 1990 Unknown [id number] 2.16.840.1.111927.3.579.2.5 93 1990 Unknown [id number] 2.16.840.1.492276.3.579.2.5 93 1990 Unknown [id number] 2.16.840.1.628052.3.579.2.5 93 1990 Unknown [id number] 2.16.840.1.320629.3.579.2.5 93 1990 Unknown [id number] 2.16.840.1.189867.3.579.2.5 93 1990 Unknown [id number] 2.16.840.1.912705.3.579.2.5 93 1990 Unknown [id number] 2.16.840.1.392812.3.579.2.5 93 1990 Unknown [id number] 2.16.840.1.988523.3.579.2.1 259 1990 Unknown [id number] 2.16.840.1.025388.3.579.2.1 259 1990 Unknown [id number] 2.16.840.1.355133.3.579.2.1 259 1990 Unknown [id number] 2.16.840.1.206026.3.579.2.1 259 1990 Unknown [id number] 2.16.840.1.347566.3.579.2.1 259 1990 Unknown [id number] 2.16.840.1.490863.3.579.2.1 259 1990 Unknown [id number] 2.16.840.1.809217.3.579.2.1 259 1959 Private Health Insurance [id number] 1959 Unknown [id number] Unknown [id number] 2.16.840.1.306023.3.579.2.5 93 Social History Date Type Detail Facility Unknown if ever smoked [facility] Other Start: 10-06-2020 End: 10-04-2023 Sex Assigned At [employer] Other Start: 09-11-2019 Tobacco smoking stat [facility] Never smoked tobacco [facility] Start: 09-11-2019 Tobacco use and exposure Smokeless tobacco non-user [facility] Start: 10-04-2023 Alcohol intake Ex-drinker (finding) [facility] Start: 10-06-2020 End: 10-04-2023 History of Social function [facility] Childcare Unknown [facility] Start: 05-30-2023 [facility] Start: 1990 Sex Assigned At Not on file P [facility] Evaluation note 07-15-2023 Note Date & Type Note Facility 07-15-2023 Evaluation note Encounter Date Diagnosis Assessment Notes Jun, First trimester (ICD-10 - Z34.91) Continued followup w Dr. Marroquin. No further adipex. [facility] Other Evaluation note 06-14-2023 Note Date & [...] index [BMI] 39.0-39.9, adult (ICD-10 - Z68.39) [facility] Other Evaluation note 05-16-2023 Note Date & [...] index [BMI] 40.0-44.9, adult (ICD-10 - Z68.41) [facility] Other Evaluation note 04-15-2023 Note Date & [...] index [BMI] 40.0-44.9, adult (ICD-10 - Z68.41) [facility] Other History general Narrative - Reported Note Date & Type Note Facility History general Narrative - Reported Type Surgical History T & A 2009 Surgical History Gallbladder 2012 [facility] Other History general Narrative - Reported Note Date & Type Note Facility History general Narrative - Reported Type Surgical History T & A 2009 Surgical History Gallbladder 2013 Hospitalization History see surgical hx [facility] [employer] Other History general Narrative - Reported Note [...] Gallbladder 2012 Hospitalization History see surgical hx [facility] Other Instructions Note Date & Type Note [...] content) DATE CREATED AUTHOR 03/11/2020 Villarreal Jal[facility] DATE CREATED AUTHOR AUTHOR'S ORGANIZ ATION 08/04/2022 [facility] DATE CREATED AUTHOR AUTHOR'S ORGANIZ ATION 12/10/2023 [facility] DATE CREATED AUTHOR AUTHOR'S ORGANIZ ATION 12/13/2023 [facility] EPIC REASON FOR VISIT (unrecogniz ed section and content) ESTABLISH CARE1 month Follow up1 month Follow up1 month Follow up Care Teams (unrecognized sec tion and content) [employer] Relationship Specialty Start Date End Date Pola Osei, PRODUCT MANAGEMENT ANALYST-BANDER AND CELLOPHANER MACHINE HELPER [address] [place] [id number] PCP - General 12/29/16 FOR RECORDS PERTAINING [...] BE BASED ON THE PRIMARY CLINICAL RECORDS. [facility]. provides no warranty or guarantee of the accuracy or completeness of information in this document.
== END 2023-12-23 10:50 | disposition home or self-care (01) ==
LOC: FBCO 07:16 → FBC 10:06
PROVIDERS: PCP Family Medicine; Visit Provider Obstetrics & Gynecology
DX: O36.5930 Maternal care for other known or suspected poor fetal growth, third trimester, not applicable or unspecified (principal)
CPT/HCPCS: 59025

== ENCOUNTER 2023-12-26 07:03 | Outpatient (OUT) | payer OTHER, SELFPAY ==
--- NOTE | 2023-12-26 | US_ITS ---
[address] [address] Patient Name: YANETH BROWNLEE MRN: [id number] date: 1990 Sex: F Assigned Patient Location: [facility] Current Patient Location: [facility] Accession/Order Number: [id number] Exam Date: 12/26/2023 15:05 Report Date: 12/26/2023 15:45 At the request of: DINH MESSER Procedure: US OB BPP w non-stress EXAMINATION: US OB BPP w non-stress HISTORY: Poor growth O36.5930 COMPARISON: No relevant comparison available. TECHNIQUE: Ultrasound biophysical profile was performed in the radiology department. non-reactive stress testing was performed by nursing staff in the birthing center. FINDINGS: BREATHING MOVEMENTS: 2.0 GROSS BODY MOVEMENTS: 2.0 TONE: 2.0 QUALITATIVE AMNIOTIC FLUID VOLUME: 2.0 PRESENTATION: CEPHALIC HEART RATE: 133.7 bpm H.B./min AMNIOTIC FLUID VOLUME: 13.3 cm cm GESTATIONAL AGE: 32 weeks 0 days CONCLUSION: Total biophysical profile score: 8.0 Electronically authenticated by: BRANDI ANN Date: 12/26/2023 15:45
--- OUTSIDE RECORDS SUMMARY | 2023-12-26 07:05 | XMS_ITS | CCD ---
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 every twenty-four hours Phentermine HCl 37.5 MG 1 capsule Orally Once a day for 30 days Apr, Active Start: 04-15-2023 take [address] [facility] every twenty-four hours Phentermine HCl 37.5 MG 1 capsule Orally Once a day for 30 days Mar, Active [id number] ac id 29 mg iron- 1 mg [...] 10-26-2023 Tatum tp. B1 <1:10 Normal <1:10 [facility] Comment on above: Performed By: #### C MVG, LUPPRO, AT3A, PROCAC, PROSAC, CMVM, CMIS, TOXOG, TOXOM, HOCYS #### [facility] [address] [place], [place] [id number] Anesthesiologist: Tanvir Macias MD #### APTMUT, AF5MUT, AMTHFR, ACOXA9, APARVP, ACOXAB #### [facility] [address] [place], [place] [id number] Anesthesiologist: MD Tatum Santoyo B2 1:20 Normal <1:10 [facility] Comment on above: Performed By: #### C MVG, LUPPRO, AT3A, PROCAC, PROSAC, CMVM, CMIS, TOXOG, TOXOM, HOCYS #### [facility] [address] [place] [address] Anesthesiologist: Tanvir Macias MD #### APTMUT, AF5MUT, AMTHFR, ACOXA9, APARVP, ACOXAB #### [facility] [address] [place], [place] [id number] Anesthesiologist: MD Tatum Santoyo B3 1:10 Normal <1:10 [facility] Comment on above: Performed By: #### C MVG, LUPPRO, AT3A, PROCAC, PROSAC, CMVM, CMIS, TOXOG, TOXOM, HOCYS #### [address] [address] Anesthesiologist: Tanvir Macias MD #### APTMUT, AF5MUT, AMTHFR, ACOXA9, APARVP, ACOXAB #### [facility] [address] [place], [place] [id number] Anesthesiologist: MD Tatum Santoyo B4 1:320 Abnormal <1:10 [facility] Comment on above: Performed By: #### C MVG, LUPPRO, AT3A, PROCAC, PROSAC, CMVM, CMIS, TOXOG, TOXOM, HOCYS #### [facility] [address] [place] [address] Anesthesiologist: Tanvir Macias MD #### APTMUT, AF5MUT, AMTHFR, ACOXA9, APARVP, ACOXAB #### [facility] [address] [place] [address] Anesthesiologist: MD Tatum Santoyo. B5 <1:10 Normal <1:10 [facility] Comment on above: Performed By: #### C MVG, LUPPRO, AT3A, PROCAC, PROSAC, CMVM, CMIS, TOXOG, TOXOM, HOCYS #### [address] [phone] Anesthesiologist: Tanvir Macias MD #### APTMUT, AF5MUT, AMTHFR, ACOXA9, APARVP, ACOXAB #### [address] [address] Anesthesiologist: MD Tatum Santoyo. B6 <1:10 Normal <1:10 [facility] Comment on above: Result Comment: (NOT E) INTERPRETIVE INFORMATION: Coxsackie B Virus Single positive antibody titers of greater than or equal to 1:80 may indicate past or current infection. Sero- conversion or an increase in titers between acute and convalescent sera of at least fourfold is considered strong evidence of current or recent infection. Performed By: [place] [id number] Natural Sciences Professor: Nadeem Mcarthur MD, PhD CLIA Number: [id number] Performed By: #### C MVG, LUPPRO, AT3A, PROCAC, PROSAC, CMVM, CMIS, TOXOG, TOXOM, HOCYS #### [place] [id number] Anesthesiologist: Tanvir Macias MD #### APTMUT, AF5MUT, AMTHFR, ACOXA9, APARVP, ACOXAB #### [address] [id number] Anesthesiologist: Enrique Arthur MD Factor V Mutationon 10-22-19 24 F 5 SPECIMEN Whole Blood Normal [facility] Comment on above: Performed By: #### C MVG, LUPPRO, AT3A, PROCAC, PROSAC, CMVM, CMIS, TOXOG, TOXOM, HOCYS #### [facility] [address] [place] [address] Anesthesiologist: Tanvir Macias MD #### APTMUT, AF5MUT, AMTHFR, ACOXA9, APARVP, ACOXAB #### [facility] [address] [place] [address] Anesthesiologist: Enrique Arthur MD FACTOR 5 MUTATION Negative Normal [facility] Comment on above: Result Comment: (NOT E) Indication for testing: Assess genetic risk for thrombosis. NEGATIVE: The factor V Leiden variant, c.1601G>A; p.Onp430Yso, was not detected. This does not exclude [...] function in the F5 gene variant c.1601G>A (p.Evi038Ock). Legacy nomenclature: [id number] (1691G>A) CLINICAL SENSITIVITY: 20-50 percent of individuals with an isolated VTE have the FVL variant. METHODOLOGY: Polymerase chain reaction and fluorescence monitoring. ANALYTICAL SENSITIVITY AND SPECIFICITY: 99 percent. LIMITATIONS: Diagnostic errors can occur due to rare sequence variations. F5 gene mutations, other than p.Ecr631Vjx, will not be detected. This test was developed and its performance characteristics determined by [facility]. It has not been cleared or approved by the [place] Food and Drug Administration. This test was performed in a CLIA certified laboratory and is intended for clinical purposes. Counseling and informed consent are recommended for genetic testing. Consent forms are available online. Performed By: [facility] [address] [place] [address] Natural Sciences Professor: Nadeem Mcarthur MD, PhD CLIA Number: [id number] Performed By: #### C MVG, LUPPRO, AT3A, PROCAC, PROSAC, CMVM, CMIS, TOXOG, TOXOM, HOCYS #### [place] [address] Anesthesiologist: Tanvir Macias MD #### APTMUT, AF5MUT, AMTHFR, ACOXA9, APARVP, ACOXAB #### [place] [id number] Anesthesiologist: Enrique Arthur MD Coxsackie A9 Titeron 024 Coxsackie A9 Titer <1:8 Normal <1:8 [facility] Comment on above: Result Comment: (NOT E) INTERPRETIVE INFORMATION: Coxsackie A Serotype 9 Titer Single positive antibody titers of greater than 1:32 may indicate past or current infection. Seroconversion or an increase in titers between acute and convalescent sera of at least fourfold is considered strong evidence of current or recent infection. Performed By: [facility] [address] [place], [place] [id number] Natural Sciences Professor: Nadeem Mcarthur MD, PhD CLIA Number: [id number] Performed By: #### C MVG, LUPPRO, AT3A, PROCAC, PROSAC, CMVM, CMIS, TOXOG, TOXOM, HOCYS #### [address] [address] Anesthesiologist: Tanvir Macias MD #### APTMUT, AF5MUT, AMTHFR, ACOXA9, APARVP, ACOXAB #### [facility] [address] [place], [place] [id number] Anesthesiologist: Enrique Arthur MD MTHFR Gene Mutationon 2023 MTHFR 1286 A>C Mut Negative Normal [facility] Comment on above: Performed By: #### C MVG, LUPPRO, AT3A, PROCAC, PROSAC, CMVM, CMIS, TOXOG, TOXOM, HOCYS #### [address] [address] Anesthesiologist: Tanvir Macias MD #### APTMUT, AF5MUT, AMTHFR, ACOXA9, APARVP, ACOXAB #### [facility] [address] [place], [place] [id number] Anesthesiologist: Enrique Arthur MD MTHFR 655C>T Mut Heterozygous Normal [facility] Comment on above: Performed By: #### C MVG, LUPPRO, AT3A, PROCAC, PROSAC, CMVM, CMIS, TOXOG, TOXOM, HOCYS #### [address] [address] Anesthesiologist: Tanvir Macias MD #### APTMUT, AF5MUT, AMTHFR, ACOXA9, APARVP, ACOXAB #### [facility] [address] [place], [place] [id number] Anesthesiologist: Enrique Arthur MD MTHFR Interpretation See Note Normal [facility] Comment on above: Result Comment: (NOT E) Indication for testing: Determine genetic contribution to hyperhomocysteinemia. Heterozygous MTHFR c.665C>T: One copy of the MTHFR variant c.665C>T (previously designated C677T) was detected; the c.1286A>C (previously designated W7049V) variant was not identified. The common variant [...] has an effect on cardiovascular disease. The [employer] Practice Guidelines indicate [...] a contributing factor to hyperhomocysteinemia. Variants Tested: c.665C>T(p.Euk122Hxs) and c.1286A>C(p.Jgb302Ddx). (legacy names C677T and S2652F, respectively). Clinical Sensitivity: Undefined; hyperhomocysteinemia is caused [...] developed and its performance characteristics determined by [facility] [employer]. It has not been cleared or approved by the [place] Food and Drug Administration. This test was performed in a CLIA certified laboratory and is intended for clinical purposes. Counseling and informed consent are recommended for genetic testing. Consent forms are available online. Performed By: [facility] [address] [place] [address] Natural Sciences Professor: Nadeem Mcarthur MD, PhD CLIA Number: [id number] Performed By: #### C MVG, LUPPRO, AT3A, PROCAC, PROSAC, CMVM, CMIS, TOXOG, TOXOM, HOCYS #### [facility] [address] [place] [address] Anesthesiologist: Tanvir Macias MD #### APTMUT, AF5MUT, AMTHFR, ACOXA9, APARVP, ACOXAB #### [facility] [address] [place] [address] Anesthesiologist: Enrique Arthur MD MTHFR SPECIMEN Whole Blood Normal [facility] Comment on above: Performed By: #### C MVG, LUPPRO, AT3A, PROCAC, PROSAC, CMVM, CMIS, TOXOG, TOXOM, HOCYS #### [address] [address] Anesthesiologist: Tanvir Macias MD #### APTMUT, AF5MUT, AMTHFR, ACOXA9, APARVP, ACOXAB #### [facility] [address] [place], [place] [id number] Anesthesiologist: Enrique Arthur MD PT Mutation [id number] 10-21-19 24 PT [id number] VARIANT Negative Normal [facility] Comment on above: Result Comment: (NOT E) Indication for testing: Assess genetic risk for thrombosis. NEGATIVE: The Factor II, prothrombin D66108E mutation, was not detected. Other causes of [...] Quintana, Ph.D. BACKGROUND INFORMATION: Prothrombin (F2) c.*97G>A (Z49557S) Pathogenic Variant CHARACTERISTICS: The Factor II, c.*97G>A (H67720L) pathogenic variant is a common genetic risk [...] CAUSE: Homozygosity or heterozygosity for F2 c.*97G>A (M03840O). PATHOGENIC VARIANT TESTED: F2 c.*97G>A (S90290E). CLINICAL SENSITIVITY FOR VENOUS THROMBOSIS: Approximately 10 percent. METHODOLOGY: Polymerase chain reaction and fluorescence monitoring. ANALYTICAL SENSITIVITY AND SPECIFICITY: 99 percent. LIMITATIONS: Diagnostic errors can occur due to rare sequence variations. F2 gene variants, other than c.*97G>A (Q32660F), will not be detected. This test was developed and its performance characteristics determined by [facility]. It has not been cleared or approved by the US Food and Drug Administration. This test was performed in a CLIA certified laboratory and is intended for clinical purposes. Counseling and informed consent are recommended for genetic testing. Consent forms are available online. Performed By: [facility] [address] [place] [address] Natural Sciences Professor: Nadeem Mcarthur MD, PhD CLIA Number: [id number] Performed By: #### C MVG, LUPPRO, AT3A, PROCAC, PROSAC, CMVM, CMIS, TOXOG, TOXOM, HOCYS #### [address] [id number] Anesthesiologist: Tanvir Macias MD #### APTMUT, AF5MUT, AMTHFR, ACOXA9, APARVP, ACOXAB #### [facility] [address] [place] [address] Anesthesiologist: Enrique Arthur MD PT PCR SPECIMEN Whole Blood Normal [facility] Comment on above: Performed By: #### C MVG, LUPPRO, AT3A, PROCAC, PROSAC, CMVM, CMIS, TOXOG, TOXOM, HOCYS #### [facility] [place], [place] [phone] Anesthesiologist: Tanvir Macias MD #### APTMUT, AF5MUT, AMTHFR, ACOXA9, APARVP, ACOXAB #### [facility] [address] [place] [address] Anesthesiologist: Enrique Arthur MD Parvovirus B19 Panelon 10-21 Parvovirus IgG B19 1.80 IV High <=0.90 [facility] Comment on above: Result Comment: (NOT [...] PROSAC, CMVM, CMIS, TOXOG, TOXOM, HOCYS #### [facility] [place], [place] [id number] Anesthesiologist: Tanvir Macias MD #### APTMUT, AF5MUT, AMTHFR, ACOXA9, APARVP, ACOXAB #### [facility] [address] [place] [address] Anesthesiologist: Enrique Arthur MD Parvovirus IgM B19 0.12 IV Normal <=0.90 [facility] Comment on above: Result Comment: (NOT E) INTERPRETIVE INFORMATION: Parvovirus B19 Antibody, IgM EFFECTIVE 07/04/2023 REFERENCE INTERVAL CHANGE Due to reagent kit block layer recall, an alternate kit has been validated and implemented by [facility]. The following Reference Interval applies to [...] levels of specific IgM antibodies. Performed By: [facility] [address] [place] [address] Natural Sciences Professor: Nadeem Mcarthur MD, PhD CLIA Number: [id number] Performed By: #### C MVG, LUPPRO, AT3A, PROCAC, PROSAC, CMVM, CMIS, TOXOG, TOXOM, HOCYS #### [facility] [address] [place] [address] Anesthesiologist: Tanvir Macias MD #### APTMUT, AF5MUT, AMTHFR, ACOXA9, APARVP, ACOXAB #### [facility] [address] [place] [address] Anesthesiologist: Enrique Arthur MD Antithrombin III Becka 10-18 Antithrombin III Act 106 % Normal 83-122 [facility] Comment on above: Result Comment: Patients receiving Hirudin may have a falsely decreased Antitrombin III Activity. Performed By: #### C MVG, LUPPRO, AT3A, PROCAC, PROSAC, CMVM, CMIS, TOXOG, TOXOM, HOCYS #### [facility] [address] [place] [phone] Anesthesiologist: Tanvir Macias MD #### APTMUT, AF5MUT, AMTHFR, ACOXA9, APARVP, ACOXAB #### [facility] [address] [place] [id number] Anesthesiologist: Enrique Arthur MD Lupus Anticoagulanton 2023 Anticardiolipin IgA 2.4 APL Normal 0.0-14.0 [facility] Comment on above: Result Comment: Reference Range: <14.0 Negative 14.0-20.0 Equivocal >20.0 Positive When results are Equivocal, it is recommended to retest after 4-6 weeks. Performed By: #### C MVG, LUPPRO, AT3A, PROCAC, PROSAC, CMVM, CMIS, TOXOG, TOXOM, HOCYS #### [address] [phone] Anesthesiologist: Tanvir Macias MD #### APTMUT, AF5MUT, AMTHFR, ACOXA9, APARVP, ACOXAB #### [address] [address] Anesthesiologist: Enrique Arthur MD Anticardiolipin IgG 2.8 GPL Normal 0.0-10.0 [facility] Comment on above: Result Comment: Reference Range: <10.0 Negative 10.0-40.0 Equivocal >40.0 Positive Performed By: #### C MVG, LUPPRO, AT3A, PROCAC, PROSAC, CMVM, CMIS, TOXOG, TOXOM, HOCYS #### [address] [phone] Anesthesiologist: Tanvir Macias MD #### APTMUT, AF5MUT, AMTHFR, ACOXA9, APARVP, ACOXAB #### [facility] [address] [place] [address] Anesthesiologist: Enrique Arthur MD Anticardiolipin IgM <0.8 Normal 0.0-10.0 [facility] Comment on above: Result Comment: Reference Range: <10.0 Negative 10.0-40.0 Equivocal >40.0 Positive Performed By: #### C MVG, LUPPRO, AT3A, PROCAC, PROSAC, CMVM, CMIS, TOXOG, TOXOM, HOCYS #### [address] [phone] Anesthesiologist: Tanvir Macias MD #### APTMUT, AF5MUT, AMTHFR, ACOXA9, APARVP, ACOXAB #### [facility] [address] [place] [address] Anesthesiologist: Enrique Arthur MD Dilute Austin Viper [facility] Comment on above: Performed By: #### C MVG, LUPPRO, AT3A, PROCAC, PROSAC, CMVM, CMIS, TOXOG, TOXOM, HOCYS #### [address] [id number] Anesthesiologist: Tanvir Macias MD #### APTMUT, AF5MUT, AMTHFR, ACOXA9, APARVP, ACOXAB #### [facility] [address] [place] [address] Anesthesiologist: Enrique Arthur MD Miscellaneouson 10-18-2023 Send Out Report [facility] [id number] Normal [facility] Comment on above: Result Comment: UNIT Y Performed By: #### C MVG, LUPPRO, AT3A, PROCAC, PROSAC, CMVM, CMIS, TOXOG, TOXOM, HOCYS #### [address] [address] Anesthesiologist: Tanvir Macias MD #### APTMUT, AF5MUT, AMTHFR, ACOXA9, APARVP, ACOXAB #### [address] [phone] Anesthesiologist: Enrique Arthur MD Protein C Activityon 024 Protein C Activity 91 % Normal >80 [facility] Comment on above: Result Comment: Patients [...] PROSAC, CMVM, CMIS, TOXOG, TOXOM, HOCYS #### [facility] [address] [place] [phone] Anesthesiologist: Tanvir Macias MD #### APTMUT, AF5MUT, AMTHFR, ACOXA9, APARVP, ACOXAB #### [address] [phone] Anesthesiologist: Enrique Arthur MD Protein S Activityon 024 Protein S Activity 79 % Normal 59-130 [facility] Comment on above: Result Comment: Patients [...] PROSAC, CMVM, CMIS, TOXOG, TOXOM, HOCYS #### [facility] [address] [place] [phone] Anesthesiologist: Tanvir Macias MD #### APTMUT, AF5MUT, AMTHFR, ACOXA9, APARVP, ACOXAB #### [address] [address] Anesthesiologist: Enrique Arthur MD Toxoplasma Ab,IgGon 10-18-19 24 Toxoplasma Ab,IgG 1.2 IU/mL Normal [facility] Comment on above: Result Comment: REFERENCE RANGE: [...] PROSAC, CMVM, CMIS, TOXOG, TOXOM, HOCYS #### [facility] [address] [place] [address] Anesthesiologist: Tanvir Macias MD #### APTMUT, AF5MUT, AMTHFR, ACOXA9, APARVP, ACOXAB #### [address] [phone] Anesthesiologist: Enrique Arthur MD Toxoplasma Ab,IgMon 10-18-19 24 Toxoplasma Ab,IgM 0.56 Index [address] [facility] Comment on above: Result Comment: REFERENCE RANGE: <0.90 NON-REACTIVE 0.90 TO 0.99 INDETERMINANT >=1.00 REACTIVE Performed By: #### C MVG, LUPPRO, AT3A, PROCAC, PROSAC, CMVM, CMIS, TOXOG, TOXOM, HOCYS #### [facility] [address] [place] [address] Anesthesiologist: Tanvir Macias MD #### APTMUT, AF5MUT, AMTHFR, ACOXA9, APARVP, ACOXAB #### [facility] [address] [place] [address] Anesthesiologist: Enrique Arthur MD CMV Ab,IgGon 10-17-2023 CMV Ab,IgG 523.0 High <0.5 [facility] Comment on above: Result Comment: Reference [...] PROSAC, CMVM, CMIS, TOXOG, TOXOM, HOCYS #### [facility] [address] [place] [address] Anesthesiologist: Tanvir Macias MD #### APTMUT, AF5MUT, AMTHFR, ACOXA9, APARVP, ACOXAB #### [facility] [address] [place] [address] Anesthesiologist: Enrique Arthur MD CMV Ab,IgMon 10-17-2023 CMV Ab,IgM 0.2 Normal <0.7 [facility] Comment on above: Result Comment: Reference [...] PROSAC, CMVM, CMIS, TOXOG, TOXOM, HOCYS #### [facility] [address] [place] [address] Anesthesiologist: Tanvir Macias MD #### APTMUT, AF5MUT, AMTHFR, ACOXA9, APARVP, ACOXAB #### [facility] [address] [place] [address] Anesthesiologist: Enrique Arthur MD Homocysteineon 10-17-2023 Homocysteine 5.7 umol/L Normal <15.0 [facility] Comment on above: Performed By: #### C MVG, LUPPRO, AT3A, PROCAC, PROSAC, CMVM, CMIS, TOXOG, TOXOM, HOCYS #### [address] [address] Anesthesiologist: Tanvir Macias MD #### APTMUT, AF5MUT, AMTHFR, ACOXA9, APARVP, ACOXAB #### [facility] [address] [place] [address] Anesthesiologist: Enrique Arthur MD Lupus Anticoagulanton 2023 aPTT Coag (Bld) [Time] 27.6 s Normal 23.0-36.5 [facility] Comment on above: Result Comment: IV Heparin Therapy Range: 66.0-92.0 sec Performed By: #### C MVG, LUPPRO, AT3A, PROCAC, PROSAC, CMVM, CMIS, TOXOG, TOXOM, HOCYS #### [facility] [address] [place] [address] Anesthesiologist: Tanvir Macias MD #### APTMUT, AF5MUT, AMTHFR, ACOXA9, APARVP, ACOXAB #### [facility] [address] [place] [address] Anesthesiologist: Enrique Arthur MD INR Coag (PPP) [Relative time] 1.0 {INR} Normal [facility] Comment on above: Result Comment: Therapeutic Range: Moderate Anticoagulant Intensity: INR = 2.0-3.0 High Anticoagulant Intensity: INR = 2.5-3.5 Performed By: #### C MVG, LUPPRO, AT3A, PROCAC, PROSAC, CMVM, CMIS, TOXOG, TOXOM, HOCYS #### [facility] [address] [place] [phone] Anesthesiologist: Tanvir Macias MD #### APTMUT, AF5MUT, AMTHFR, ACOXA9, APARVP, ACOXAB #### [facility] [address] [place] [address] Anesthesiologist: Enrique Arthur MD PT Coag (PPP) [Time] 13.5 s Normal 11.7-14.9 [facility] Comment on above: Performed By: #### C MVG, LUPPRO, AT3A, PROCAC, PROSAC, CMVM, CMIS, TOXOG, TOXOM, HOCYS #### [facility] [address] [place] [address] [phone] Anesthesiologist: Tanvir Macias MD #### APTMUT, AF5MUT, AMTHFR, ACOXA9, APARVP, ACOXAB #### [facility] [address] [place] [address] Anesthesiologist: Enrique Arthur MD Basic Metabolic Panelon 12-0 Glucose [Mass/Vol] 97 mg/dL [facility] CBC without diffOrdered By: Mayra Victoria on 07-26-2023 Hematocrit (Bld) [Volume fraction] 34.8 % [facility] Hemoglobin (Bld) [Mass/Vol] 11.3 g/dL [facility] Platelets (Bld) [#/Vol] 292 10*3/uL [facility] Rbc Mcv (Fl) By Automated Count 83.5 [facility] HIV 1&2 AB/AG Screen (P24 AG )on 07-26-2023 HIV 1&2 AB/AG Non-Reactive [facility] Hemoglobin A1con 07-26-2023 HbA1c (Bld) [Mass fraction] 5.0 % 4.0 - 6.0 % [facility] Hepatitis B surface antigeno n 07-26-2023 Hepatitis B Surface Antigen Negative [facility] No Panel InformationOrdered By: Mayra Victoria on 07-26-2023 [facility] Rubella IGG immune statuson 07-26-2023 Rubella immune IgG 5.26 [facility] Syphilis Total(Unknown Syphi lis Status)on 07-26-2023 Syphilis Non-Reactive [facility] TSHon 07-26-2023 TSH Qn 1.99 m[IU]/L [facility] Type and screenon 07-26-2023 Abo/Rh(D) Positive [facility] CBC AUTO DIFFon 07-28-2022 BASO # 0.0 103/ul Normal 0.0-0.1 [facility] Comment on above: Performed By: #### H CVPCRR #### [facility] [address] [address] [address] Carleen Underwood Basophils/100 WBC (Bld) 0.3 % Normal 0.2-2.0 [facility] Comment on above: Performed By: #### H CVPCRR #### [facility] [address] [place] [address] Dr. Carleen Underwood EO # 0.2 103/ul Normal 0.0-0.7 [facility] Comment on above: Performed By: #### H CVPCRR #### [facility] [address] [place] [address] [address] Carleen Underwood Eosinophils/100 WBC (Bld) 1.5 % Normal 0.9-7.0 [facility] Comment on above: Performed By: #### H CVPCRR #### [facility] [address] [address] [address] Carleen Underwood Erythrocyte distribution width (RBC) [Ratio] 14.9 % Normal 11.0-15.0 [facility] Comment on above: Performed By: #### H CVPCRR #### [facility] [address] [place] [address] Dr. Carleen Underwood Hematocrit (Bld) [Volume fraction] 30.7 % Critically low 36.0-48.0 [facility] Comment on above: Performed By: #### H CVPCRR #### [facility] [address] [place] [address] Dr. Carleen Underwood Hemoglobin (Bld) [Mass/Vol] 9.4 g/dL Critically low 12.0-16.0 [facility] Comment on above: Performed By: #### H CVPCRR #### [facility] [address] [place] [address] Dr. Carleen Underwood IG # 0.07 10e3/ul Critically high 0.00-0.03 [facility] Comment on above: Performed By: #### H CVPCRR #### [facility] [address] [place] [address] Dr. Carleen Underwood IG % 0.6 % Critically high 0.0-0.5 [facility] Comment on above: Performed By: #### H CVPCRR #### [facility] [address] [place] [address] Dr. Carleen Underwood LYMPH # 2.7 103/ul Normal 1.2-3.8 [facility] Comment on above: Performed By: #### H CVPCRR #### [facility] [address] [place] [address] Dr. Carleen Underwood Lymphocytes/100 WBC (Bld) 24.1 % Normal 20.5-60.0 [facility] Comment on above: Performed By: #### H CVPCRR #### [facility] [address] [place] [address] Dr. Carleen Underwood MANUAL DIFF REQ NO Normal [facility] Comment on above: Performed By: #### H CVPCRR #### [facility] [address] [place] [address] Dr. Carleen Underwood MCH (RBC) [Entitic mass] 23.3 pg Critically low 26.7-34.0 [facility] Comment on above: Performed By: #### H CVPCRR #### [facility] [address] [place] [address] Dr. Carleen Underwood MCHC (RBC) [Mass/Vol] 30.6 g/dL Normal 29.9-35.2 [facility] Comment on above: Performed By: #### H CVPCRR #### [facility] [address] [place] [address] Dr. Carleen Underwood MCV (RBC) [Entitic vol] 76.2 fL Critically low 81.0-99.0 [facility] Comment on above: Performed By: #### H CVPCRR #### [facility] [address] [place] [address] Dr. Carleen Underwood MONO # 0.7 103/ul Normal 0.3-0.8 [facility] Comment on above: Performed By: #### H CVPCRR #### [facility] [address] [place] [address] Dr. Carleen Underwood Monocytes/100 WBC (Bld) 5.8 % Normal 1.7-12.0 [facility] Comment on above: Performed By: #### H CVPCRR #### [facility] [address] [place] [address] Dr. Carleen Underwood NEUT # 7.6 103/ul Critically high 1.4-6.5 [facility] Comment on above: Performed By: #### H CVPCRR #### [facility] [address] [place] [address] Dr. Carleen Underwood Neutrophils/100 WBC (Bld) 67.7 % Normal 43.0-75.0 [facility] Comment on above: Performed By: #### H CVPCRR #### [facility] [address] [place] [address] Dr. Carleen Underwood Platelet mean volume (Bld) [Entitic vol] 11.1 fL Normal 9.5-13.5 [facility] Comment on above: Performed By: #### H CVPCRR #### [facility] [address] [place] [address] Dr. Carleen Underwood PLT 242 103/ul Normal 150-450 [facility] Comment on above: Performed By: #### H CVPCRR #### [facility] [address] [place] [address] Dr. Carleen Underwood RBC 4.03 106/ul Critically low 4.20-5.40 [facility] Comment on above: Performed By: #### H CVPCRR #### [facility] [address] [place] [address] Dr. Carleen Underwood WBC 11.2 103/ul Critically high 4.0-11.0 [facility] Comment on above: Performed By: #### H CVPCRR #### [facility] [address] [place] [address] Dr. Carleen Underwood CBC AUTO DIFFon 07-27-2022 BASO # 0.0 103/ul Normal 0.0-0.1 [facility] Comment on above: Performed By: #### G LU1HR #### [facility] [address] [place] [address] Dr. Carleen Underwood Basophils/100 WBC (Bld) 0.5 % Normal 0.2-2.0 [facility] Comment on above: Performed By: #### G LU1HR #### [facility] [address] [place] [address] Dr. Carleen Underwood EO # 0.1 103/ul Normal 0.0-0.7 [facility] Comment on above: Performed By: #### G LU1HR #### [facility] [address] [place] [address] Dr. Carleen Underwood Eosinophils/100 WBC (Bld) 1.2 % Normal 0.9-7.0 [facility] Comment on above: Performed By: #### G LU1HR #### [facility] [address] [place] [address] Dr. Carleen Underwood Erythrocyte distribution width (RBC) [Ratio] 14.9 % Normal 11.0-15.0 [facility] Comment on above: Performed By: #### G LU1HR #### [facility] [address] [place] [address] Dr. Carleen Underwood Hematocrit (Bld) [Volume fraction] 29.6 % Critically low 36.0-48.0 [facility] Comment on above: Performed By: #### G LU1HR #### [facility] [address] [place] [address] Dr. Carleen Underwood Hemoglobin (Bld) [Mass/Vol] 9.3 g/dL Critically low 12.0-16.0 [facility] Comment on above: Performed By: #### G LU1HR #### [facility] [address] [place] [address] Dr. Carleen Underwood IG # 0.04 10e3/ul Critically high 0.00-0.03 [facility] Comment on above: Performed By: #### G LU1HR #### [facility] [address] [place] [address] Dr. Carleen Underwood IG % 0.5 % Normal 0.0-0.5 [facility] Comment on above: Performed By: #### G LU1HR #### [facility] [address] [place] [address] Dr. Carleen Underwood LYMPH # 2.1 103/ul Normal 1.2-3.8 [facility] Comment on above: Performed By: #### G LU1HR #### [facility] [address] [place] [address] Dr. Carleen Underwood Lymphocytes/100 WBC (Bld) 25.5 % Normal 20.5-60.0 [facility] Comment on above: Performed By: #### G LU1HR #### [facility] [address] [place] [address] Dr. Carleen Underwood MANUAL DIFF REQ NO Normal [facility] Comment on above: Performed By: #### G LU1HR #### [facility] [address] [place] [address] Dr. Carleen Underwood MCH (RBC) [Entitic mass] 23.2 pg Critically low 26.7-34.0 [facility] Comment on above: Performed By: #### G LU1HR #### [facility] [address] [place] [address] Dr. Carleen Underwood MCHC (RBC) [Mass/Vol] 31.4 g/dL Normal 29.9-35.2 [facility] Comment on above: Performed By: #### G LU1HR #### [facility] [address] [place] [address] Dr. Carleen Underwood MCV (RBC) [Entitic vol] 73.8 fL Critically low 81.0-99.0 [facility] Comment on above: Performed By: #### G LU1HR #### [facility] [address] [place] [address] Dr. Carleen Underwood MONO # 0.5 103/ul Normal 0.3-0.8 [facility] Comment on above: Performed By: #### G LU1HR #### [facility] [address] [place] [address] Dr. Carleen Underwood Monocytes/100 WBC (Bld) 6.2 % Normal 1.7-12.0 [facility] Comment on above: Performed By: #### G LU1HR #### [facility] [address] [place] [address] Dr. Carleen Underwood NEUT # 5.4 103/ul Normal 1.4-6.5 [facility] Comment on above: Performed By: #### G LU1HR #### [facility] [address] [place] [address] Dr. Carleen Underwood Neutrophils/100 WBC (Bld) 66.1 % Normal 43.0-75.0 [facility] Comment on above: Performed By: #### G LU1HR #### [facility] [address] [place] [address] Dr. Carleen Underwood Platelet mean volume (Bld) [Entitic vol] 11.3 fL Normal 9.5-13.5 [facility] Comment on above: Performed By: #### G LU1HR #### [facility] [address] [place] [address] Dr. Carleen Underwood PLT 238 103/ul Normal 150-450 [facility] Comment on above: Performed By: #### G LU1HR #### [facility] [address] [place] [address] Dr. Carleen Underwood RBC 4.01 106/ul Critically low 4.20-5.40 [facility] Comment on above: Performed By: #### G LU1HR #### [facility] [address] [place] [address] Dr. Carleen Underwood WBC 8.2 103/ul Normal 4.0-11.0 [facility] Comment on above: Performed By: #### G LU1HR #### [facility] [address] [place] [address] Dr. Carleen Underwood Covid-19 PCR ([facility])on SARS-CoV-2 (COVID-19) RNA HUY+probe Ql (Unsp spec) Not detected Normal NOT DETECTED [facility] Comment on above: Result Comment: When [...] for this test is supported by the [place]'s declaration that [...] used). Performed By: #### H CVPCRR #### [facility] [address] [place] [address] Dr. Carleen Underwood DRUG SCREEN RAPID (URINE)on 07-27-2022 AMP Negative Normal NEGATIVE [facility] Comment on above: Performed By: #### G TT3P #### [facility] [address] [place] [address] Dr. Carleen Underwood BAR Negative Normal NEGATIVE [facility] Comment on above: Performed By: #### G TT3P #### [facility] [address] [place], [place] [id number] Dr. Carleen Underwood BUP Negative Normal NEGATIVE [facility] Comment on above: Performed By: #### G TT3P #### [facility] [address] [place] [address] Dr. Carleen Underwood BZO Negative Normal NEGATIVE [facility] Comment on above: Performed By: #### G TT3P #### [facility] [address] [place] [address] Dr. Carleen Underwood EMIGDIO Negative Normal NEGATIVE [facility] Comment on above: Performed By: #### G TT3P #### [facility] [address] [place] [address] Dr. Carleen Underwood CUT-OFFS SEE BELOW Normal [facility] Comment on above: Result Comment: AMP [...] ng/mL Performed By: #### G TT3P #### [facility] [address] [place] [address] Dr. Carleen Underwood DRUG CUT HEADER DRUG CLASS TEST SYST EM CUT-OFF CONCENTRATIONS ARE FOLLOWS: Normal [facility] Comment on above: Performed By: #### G TT3P #### [facility] [address] [place] [address] Dr. Carleen Underwood mAMP Negative Normal NEGATIVE [facility] Comment on above: Performed By: #### G TT3P #### [facility] [address] [place] [address] Dr. Carleen Underwood MTD Negative Normal NEGATIVE [facility] Comment on above: Performed By: #### G TT3P #### [facility] [address] [place] [address] Dr. Carleen Underwood OPI Negative Normal NEGATIVE [facility] Comment on above: Performed By: #### G TT3P #### [facility] [address] [place] [address] Dr. Carleen Underwood OXY Negative Normal NEGATIVE [facility] Comment on above: Performed By: #### G TT3P #### [facility] [address] [place] [address] Dr. Carleen Underwood PCP Negative Normal NEGATIVE [facility] Comment on above: Performed By: #### G TT3P #### [facility] [address] [place] [address] Dr. Carleen Underwood PPX Negative Normal NEGATIVE [facility] Comment on above: Performed By: #### G TT3P #### [facility] [address] [place] [address] Dr. Carleen Underwood TCA Negative Normal NEGATIVE [facility] Comment on above: Performed By: #### G TT3P #### [facility] [address] [place] [address] Dr. Carleen Underwood THC Negative Normal NEGATIVE [facility] Comment on above: Performed By: #### G TT3P #### [facility] [address] [place] [address] Dr. Carleen Underwood TYPE AND SCREENon 07-27-2022 TYPE AND SCREEN Negative Normal [facility] Comment on above: Performed By: #### G TT3P #### [facility] [address] [place] [address] Dr. Carleen Underwood US PREG AMNIOTIC FLUID [...] FOUZIA CALERO Date: 2022-07-12 16:24 Normal [facility] US PREG BIOPHY W NON STRESSo [...] BRANDI ANN Date: 2022-07-09 16:35 Normal [facility] US PREG BIOPHY W NON STRESSo [...] FOUZIA CALERO Date: 2022-07-06 17:28 Normal [facility] GROUP B STREP CULTUREon 06-26 S. agalactiae Ag Ql (Unsp spec) Culture Observations: NEGATIVE FOR GROUP B STREPTOCOCCUS. Normal [facility] Comment on above: Performed By: #### G TT3P #### [facility] [address] [place] [address] Dr. Carleen Underwood US PREG GROWTHon 07-05-2022 [...] Marroquin was notified of these findings by operating room technician at time of imaging. 3. Biparietal diameter is at 8th percentile. Electronically authenticated by: FOUZIA CALERO Date: 2022-07-05 16:58 Normal [facility] US PREG GROWTHon 06-11-2022 US PREG [...] by: FOUZIA CALERO Date: 2022-06-11 16:22 Normal [facility] US PREG INCOMPLETE ANATOMYon 06-11-2022 US [...] FOUZIA CALERO Date: 2022-06-11 16:20 Normal [facility] US PREG INCOMPLETE ANATOMYon 05-14-2022 US [...] FOUZIA CALERO Date: 2022-05-14 17:15 Normal [facility] GTT 3 HR PREGon 04-24-2022 Glucose [Mass/Vol] 91 mg/dL Normal 74-106 [facility] Comment on above: Performed By: #### G TT3P #### [facility] [address] [address] [address] Carleen Underwood Glucose [Mass/Vol] 141 mg/dL Normal [facility] Comment on above: Performed By: #### G TT3P #### [facility] [address] [address] [address] Carleen Underwood Glucose [Mass/Vol] 103 mg/dL Normal [facility] Comment on above: Performed By: #### G TT3P #### [facility] [address] [address] [address] Carleen Underwood Glucose [Mass/Vol] 75 mg/dL Normal [facility] Comment on above: Performed By: #### G TT3P #### [facility] [address] [address] [address] Carleen Underwood US PREG INCOMPLETE ANATOMYon [...] cervical os Normal ventricular outflow tracts Normal [facility] PAP ACOG PANEL 2: 30 to 65on 04-20-2022 . . Normal [facility] Comment on above: Result Comment: Perf ormed at: WB Performed By: #### [id number] #### [facility] [address] [address] [address] Carleen Underwood Age Gdln ACOG Testing - Normal [facility] Comment on above: Performed By: #### [id number] #### [facility] [address] [address] [address] Carleen Underwood DIAGNOSIS: Comment Normal [facility] Comment on above: Result Comment: NEGA TIVE FOR INTRAEPITHELIAL LESION OR MALIGNANCY. Performed at: WB Performed By: #### [id number] #### [facility] [address] [address] [address] Carleen Underwood HPV Aptima Negative Normal Negative [facility] Comment on above: Result Comment: This nucleic acid amplification test detects fourteen high-risk HPV types (16,18,31,33,35,39,45,51,52,56,58,59,66,68) without differentiation. Performed at: =G Performed By: #### [id number] #### [facility] [address] [address] [address] Carleen Undrewood Methodology: Comment Normal [facility] Comment on above: Result Comment: This liquid based ThinPrep(R) pap test was screened with the use of an image guided system. Performed at: WB Performed By: #### [id number] #### [facility] [address] [address] [address] Carleen Underwood Note: Comment Normal [facility] Comment on above: Result Comment: The Pap smear is a screening test designed to aid in the detection of premalignant and malignant conditions of the uterine cervix. It is not a diagnostic procedure and should not be used as the sole means of detecting cervical cancer. Both false-positive and false-negative reports do occur. . Performed at: WB Performed By: #### [id number] #### [facility] [address] [place] [address] Dr. Carleen Underwood Performed by: Comment Normal [facility] Comment on above: Result Comment: Carol Aguilar, Seasonal Driver Performed at: WB Performed By: #### [id number] #### [facility] [address] [place] [address] Dr. Carleen Underwood Specimen adequacy: Comment Normal [facility] Comment on above: Result Comment: Sati sfactory for evaluation. No endocervical component is identified. Performed at: WB Performed By: #### [id number] #### [facility] [address] [place] [address] Dr. Carleen Underwood CHLAMYDIA/GONOCOCCUS HUY (SW AB/URINE/PAPon 04-19-2022 Chlamydia trachomatis, HUY Negative Normal Negative [facility] Comment on above: Performed By: #### H CVPCRR #### [facility] [address] [place] [address] Dr. Carleen Underwood Neisseria gonorrhoeae, HUY Negative Normal Negative [facility] Comment on above: Performed By: #### H CVPCRR #### [facility] [address] [place] [address] Dr. Carleen Underwood VAGINITIS/VAGINOSIS DNA PROB True 04-19-2022 Priya species Negative Normal Negative [facility] Comment on above: Performed By: #### G LU1HR #### [facility] [address] [place] [address] Dr. Carleen Underwood Gardnerella vaginalis Negative Normal Negative [facility] Comment on above: Performed By: #### G LU1HR #### [facility] [address] [place] [address] Dr. Carleen Underwood Trichomonas vaginalis Negative Normal Negative [facility] Comment on above: Performed By: #### G LU1HR #### [facility] [address] [place] [address] Dr. Carleen Underwood GLUCOSE - 1HRon 04-17-2022 Glucose [Mass/Vol] 150 mg/dL Critically high 74-106 [facility] Comment on above: Performed By: #### G LU1HR #### [facility] [address] [place] [address] Dr. Carleen Underwood HEMOGRAM AND PLATELon 2021 Hematocrit (Bld) [Volume fraction] 31.9 % Critically low 36.0-48.0 [facility] Comment on above: Performed By: #### H H #### [facility] [address] [place] [address] Dr. Carleen Underwood Hemoglobin (Bld) [Mass/Vol] 10.3 g/dL Critically low 12.0-16.0 [facility] Comment on above: Performed By: #### H H #### [facility] [address] [place] [address] Dr. Carleen Underwood MCH (RBC) [Entitic mass] 26.6 pg Critically low 26.7-34.0 [facility] Comment on above: Performed By: #### H H #### [facility] [address] [place] [address] Dr. Carleen Underwood MCHC (RBC) [Mass/Vol] 32.3 g/dL Normal 29.9-35.2 [facility] Comment on above: Performed By: #### H H #### [facility] [address] [place] [address] Dr. Calreen Underwood MCV (RBC) [Entitic vol] 82.4 fL Normal 81.0-99.0 [facility] Comment on above: Performed By: #### H H #### [facility] [address] [place] [address] Dr. Carleen Underwood PLT 233 103/ul Normal 150-450 [facility] Comment on above: Performed By: #### H H #### [facility] [address] [place] [address] Dr. Carleen Underwood RBC 3.87 106/ul Critically low 4.20-5.40 [facility] Comment on above: Performed By: #### H H #### [facility] [address] [address] [address] Carleen Underwood WBC 8.5 103/ul Normal 4.0-11.0 [facility] Comment on above: Performed By: #### H H #### [facility] [address] [address] [address] Carleen Underwood AFP MATERNAL FOR SPINA BIFID Aon 03-22-2022 AFP MoM 1.08 Normal [facility] Comment on above: Performed By: #### H CVPCRR #### [facility] [address] [address] [address] Carleen Underwood AFP Value 43.1 ng/mL Normal [facility] Comment on above: Performed By: #### H CVPCRR #### [facility] [address] [address] [address] Carleen Underwood AFP, Serum for Spina Bifida Report Normal [facility] Comment on above: Performed By: #### H CVPCRR #### [facility] [address] [address] [address] Carleen Underwood Comment Comment Normal [facility] Comment on above: Result Comment: Re Quick, Ph.D., [facility] Director . References: Available Upon Request. . Multiples Of Median Cutoffs For AFP Elevations [place] 2.5 Black 2.8 IDD 2.0 Twins 4.5 Abbreviation Definitions IDD - Insulin Dep Diabetes OSBR - Open Spina Bifida Risk . For further inquiries contact [facility] at [phone]. . This test was developed and its performance characteristics determined by [employer]. It has not been cleared or approved by the Food and Drug Administration. Performed By: #### H CVPCRR #### [facility] [address] [address] [address] Carleen Marie Age Collection Date 19.4 weeks Normal [facility] Comment on above: Performed By: #### H CVPCRR #### [facility] [address] [address] [address] Carleen Underwood Gestat, Age Based on LMP Normal [facility] Comment on above: Result Comment: Reca lculations are not recommended when gestational dating by LMP and ultrasound are within 10 days. Performed By: #### H CVPCRR #### [facility] [address] [place] [address] Dr. Carleen Underwood Insulin Dep Diabetes No Normal [facility] Comment on above: Performed By: #### H CVPCRR #### [facility] [address] [place] [address] Dr. Carleen Underwood Interpretation Comment Normal [facility] Comment on above: Result Comment: Inte [...] Customer Services to discuss available options. The [employer] recommends amniocentesis be offered to women age 35 and older. Performed By: #### H CVPCRR #### [facility] [address] [place] [address] Dr. Carleen Underwood [age] Normal [facility] Comment on above: Performed By: #### H CVPCRR #### [facility] [address] [place] [address] Dr. Carleen Underwood Multiple Gestation No Normal [facility] Comment on above: Performed By: #### H CVPCRR #### [facility] [address] [place] [address] Dr. Carleen Underwood OSBR Risk 1 IN 9540 Normal [facility] Comment on above: Performed By: #### H CVPCRR #### [facility] [address] [place] [address] Dr. Carleen Underwood PDF . Normal [facility] Comment on above: Performed By: #### H CVPCRR #### [facility] [address] [place] [address] Dr. Carleen Underwood Race Normal [facility] Comment on above: Performed By: #### H CVPCRR #### [facility] [address] [place], [place] [address] Dr. Carleen Underwood Test Results: Negative Normal [facility] Comment on above: Performed By: #### H CVPCRR #### [facility] [address] [place], [place] [address] Dr. Carleen Underwood US PREG ANATOMY SINGLEon [...] by: FOUZIA CALERO Date: 2022-03-19 17:04 Normal [facility] GLUCOSE - 1HRon 02-14-2022 Glucose [Mass/Vol] 107 mg/dL Critically high 74-106 [facility] Comment on above: Performed By: #### H CVPCRR #### [facility] [address] [address] [address] Carleen Underwood HEP B SURFACE ANTIGEN SCREEN on 01-13-2022 HBsAg Screen Negative Normal Negative [facility] Comment on above: Performed By: #### H BSANS #### [facility] [address] [address] [address] Carleen Underwood HEPATITIS C VIRUS AB W/ REFL EX QUANTon 01-13-2022 HCV AB <0.1 Normal 0.0-0.9 [facility] Comment on above: Performed By: #### H CVPCRR #### [facility] [address] [place] [address] Dr. Carleen Underwood Interpretation: Comment Normal [facility] Comment on above: Result Comment: Nega tive Not infected with HCV, unless recent infection is suspected or other evidence exists to indicate HCV infection. Performed By: #### H CVPCRR #### [facility] [address] [place] [address] Dr. Carleen Underwood HIV 1 AND 2 WITH REFLEXon HIV Screen 4th Generation wRfx Non-Reactive Normal Non Reactive [facility] Comment on above: Result Comment: HIV Negative HIV-1/HIV-2 antibodies and HIV-1 p24 antigen were NOT detected. There is no laboratory evidence of HIV infection. Performed By: #### G LU1HR #### [facility] [address] [place] [address] Dr. Carleen Underwood RPR QUANTon 01-13-2022 Rapid Plasma Reagin, Quant Non-Reactive Normal NonRea<1:1 [facility] Comment on above: Result Comment: Plea Note: This test does not meet current guidelines for screening and diagnosis of syphilis. This test is intended for following treatment response in patients being treated for syphilis infection. To screen for syphilis infection, a reflex cascade that includes both RPR and a treponema-specific assay should be utilized, such as Treponema pallidum (Syphilis) Screening Gregg (528172) or Rapid Plasma Reagin (RPR) Test With Reflex to Quantitative RPR and Confirmatory Treponema pallidum Antibodies ([id number]). Performed By: #### H CVPCRR #### [facility] [address] [place] [address] Dr. Carleen Underwood RUBELLA AB IGGon 01-13-2022 Rubella Antibodies, IgG 4.86 index Normal Immune >0.99 [facility] Comment on above: Result Comment: Non- immune <0.90 Equivocal 0.90 - 0.99 Immune >0.99 Performed By: #### R UBIGG #### [facility] [address] [place] [address] Dr. Carleen Underwood CBC AUTO DIFFon 01-12-2022 BASO # 0.0 103/ul Normal 0.0-0.1 [facility] Comment on above: Performed By: #### C BC #### [facility] [address] [place] [address] Dr. Carleen Underwood Basophils/100 WBC (Bld) 0.4 % Normal 0.2-2.0 [facility] Comment on above: Performed By: #### C BC #### [facility] [address] [place] [address] Dr. Carleen Underwood EO # 0.1 103/ul Normal 0.0-0.7 [facility] Comment on above: Performed By: #### C BC #### [facility] [address] [place] [address] Dr. Carleen Underwood Eosinophils/100 WBC (Bld) 1.1 % Normal 0.9-7.0 [facility] Comment on above: Performed By: #### C BC #### [facility] [address] [place] [address] Dr. Carleen Underwood Erythrocyte distribution width (RBC) [Ratio] 14.5 % Normal 11.0-15.0 [facility] Comment on above: Performed By: #### C BC #### [facility] [address] [place] [address] Dr. Carleen Underwood Hematocrit (Bld) [Volume fraction] 35.8 % Critically low 36.0-48.0 [facility] Comment on above: Performed By: #### C BC #### [facility] [address] [address] [address] Carleen Underwood Hemoglobin (Bld) [Mass/Vol] 11.2 g/dL Critically low 12.0-16.0 [facility] Comment on above: Performed By: #### C BC #### [facility] [address] [place] [address] Dr. Carleen Underwood IG # 0.02 10e3/ul Normal 0.00-0.03 [facility] Comment on above: Performed By: #### C BC #### [facility] [address] [place] [address] Dr. Carleen Underwood IG % 0.4 % Normal 0.0-0.5 [facility] Comment on above: Performed By: #### C BC #### [facility] [address] [place] [address] Dr. Craleen Underwood LYMPH # 1.6 103/ul Normal 1.2-3.8 [facility] Comment on above: Performed By: #### C BC #### [facility] [address] [place] [address] Dr. Carleen Underwood Lymphocytes/100 WBC (Bld) 27.9 % Normal 20.5-60.0 [facility] Comment on above: Performed By: #### C BC #### [facility] [address] [place] [address] Dr. Carleen Underwood MANUAL DIFF REQ NO Normal [facility] Comment on above: Performed By: #### C BC #### [facility] [address] [place] [address] Dr. Carleen Underwood MCH (RBC) [Entitic mass] 26.1 pg Critically low 26.7-34.0 [facility] Comment on above: Performed By: #### C BC #### [facility] [address] [place] [address] Dr. Carleen Underwood MCHC (RBC) [Mass/Vol] 31.3 g/dL Normal 29.9-35.2 [facility] Comment on above: Performed By: #### C BC #### [facility] [address] [address] [address] Carleen Underwood MCV (RBC) [Entitic vol] 83.4 fL Normal 81.0-99.0 [facility] Comment on above: Performed By: #### C BC #### [facility] [address] [address] [address] Carleen Underwood MONO # 0.4 103/ul Normal 0.3-0.8 [facility] Comment on above: Performed By: #### C BC #### [facility] [address] [place] [address] Dr. Carleen Underwood Monocytes/100 WBC (Bld) 6.2 % Normal 1.7-12.0 [facility] Comment on above: Performed By: #### C BC #### [facility] [address] [place] [address] Dr. Carleen Underwood NEUT # 3.7 103/ul Normal 1.4-6.5 [facility] Comment on above: Performed By: #### C BC #### [facility] [address] [place] [address] Dr. Carleen Underwood Neutrophils/100 WBC (Bld) 64.0 % Normal 43.0-75.0 [facility] Comment on above: Performed By: #### C BC #### [facility] [address] [place] [address] Dr. Carleen Underwood Platelet mean volume (Bld) [Entitic vol] 10.3 fL Normal 9.5-13.5 [facility] Comment on above: Performed By: #### C BC #### [facility] [address] [place] [address] Dr. Carleen Underwood PLT 229 103/ul Normal 150-450 [facility] Comment on above: Performed By: #### C BC #### [facility] [address] [place] [address] Dr. Carleen Underwood RBC 4.29 106/ul Normal 4.20-5.40 [facility] Comment on above: Performed By: #### C BC #### [facility] [address] [place] [address] Dr. Carleen Underwood WBC 5.7 103/ul Normal 4.0-11.0 [facility] Comment on above: Performed By: #### C BC #### [facility] [address] [place] [address] Dr. Carleen Underwood CULTURE URINEon 01-12-2022 CULTURE URINE Culture Observations : LIGHT GROWTH OF MIXED GENITAL YULI. NO POTENTIAL PATHOGENS SEEN. Normal [facility] Comment on above: Performed By: #### U RCX #### [facility] [address] [place] [address] Dr. Carleen Underwood GLYCOHEMOGLOBIN A1Con 2021 ADA RECOMMENDATION SEE BELOW Normal [facility] Comment on above: Result Comment: ADA RECOMMENDED LIMIT 4.0 - 6.0 ADA THERAPEUTIC TARGET < 7.0 ACTION SUGGESTED > 7.0 Performed By: #### G LU1HR #### [facility] [address] [place] [address] Dr. Carleen Underwood Glucose [Mass/Vol] 100 mg/dL Normal [facility] Comment on above: Performed By: #### G LU1HR #### [facility] [address] [place] [address] Dr. Carleen Underwood HbA1c (Bld) [Mass fraction] 5.1 % Normal 4.5-6.2 [facility] Comment on above: Performed By: #### G LU1HR #### [facility] [address] [place] [address] Dr. Carleen Underwood EMILY BOX TEST PT SEND OUTo n 01-12-2022 SENT TO REF LAB 01/12/2022 Normal [facility] Comment on above: Performed By: #### H CVPCRR #### [facility] [address] [place] [address] Dr. Carleen Underwood TYPE AND SCREENon 01-12-2022 TYPE AND SCREEN Negative Normal [facility] Comment on above: Performed By: #### T NS #### [facility] [address] [place] [address] Dr. Carleen Underwood US PREG TVon 12-29-2021 [...] by: BRANDI ANN Date: 2021-12-29 16:07 Normal [facility] Coding Summary.on 02-12-2020 Coding Summary. CODING DATE: 020 [facility] STATUS: Home (Routine DC) PAYOR: Commercial [...] Esquivel Date Saved: 02/12/2020 10:10 am Normal [facility] Physician Orderon 02-07-2020 Physician Order [id number]:[id number] Normal [facility] Vital Signs Date Time Vital Sign Value Performing Clinician Facility 07-15-2023 13:00-0500 Body height 170.81 cm Chery Aranda Other [facility] Other 07-15-2023 13:00-0500 Body mass index (BMI) [Ratio] 39.95 kg/m2 Chery Aranda Other [facility] Other 07-15-2023 13:00-0500 Body weight 116.58 kg Chery Aranda Other [facility] Other 07-15-2023 13:00-0500 Diastolic blood pressure 74 mm[Hg] Chery Aranda Other [facility] Other 07-15-2023 13:00-0500 Systolic blood pressure 107 mm[Hg] Chery Aranda Other [facility] Other 06-14-2023 13:30-0400 Body height 170.81 cm Chery Aranda Other [facility] Other 06-14-2023 13:30-0400 Body mass index (BMI) [Ratio] 39.42 kg/m2 Chery Aranda Other [facility] Other 06-14-2023 13:30-0400 Body weight 115.03 kg Chery Aranda Other [facility] Other 06-14-2023 13:30-0400 Diastolic blood pressure 72 mm[Hg] Chery Aranda Other [facility] Other 06-14-2023 13:30-0400 Systolic blood pressure 118 mm[Hg] Chery Aranda Other [facility] Other 05-16-2023 13:00-0400 Body height 170.81 cm Chery Aranda Other [facility] Other 05-16-2023 13:00-0400 Body mass index (BMI) [Ratio] 40.1 kg/m2 Chery Aranda Other [facility] Other 05-16-2023 13:00-0400 Body weight 117.03 kg Chery Aranda Other [facility] Other 05-16-2023 13:00-0400 Diastolic blood pressure 67 mm[Hg] Chery Aranda Other [facility] Other 05-16-2023 13:00-0400 Systolic blood pressure 102 mm[Hg] Chery Aranda Other [facility] Other 04-15-2023 13:00-0400 Body height 170.81 cm Chery Aranda Other [facility] Other 04-15-2023 13:00-0400 Body mass index (BMI) [Ratio] 41.35 kg/m2 Chery Aranda Other [facility] Other 04-15-2023 13:00-0400 Body weight 120.66 kg Chery Aranda Other [facility] Other 04-15-2023 13:00-0400 Diastolic blood pressure 71 mm[Hg] Chery Aranda Other [facility] Other 04-15-2023 13:00-0400 Systolic blood pressure 110 mm[Hg] Chery Aranda Other [facility] Other 03-22-2022 02:06-0400 Body weight 117.[address] BRANDI ANN [facility] Comment on above: Performed By: #### HCVPCRR #### [facility] [address] [place] [address] Dr. Carleen Underwood Encounters Encounter Date Encounter Type Care Provider Facility Start: 12-11-2023 End: 12-11-2023 ambulatory DINH LOPEZ Not Available Start: 11-27-2023 End: 11-27-2023 ambulatory FRIEDA MILLS Not Available Start: 11-13-2023 End: 11-13-2023 ambulatory DINH LOPEZ Not Available Start: 10-17-2023 End: 10-18-2023 ambulatory [facility] Start: 10-16-2023 End: 10-16-2023 ambulatory DINH LOPEZ Not Available Start: 10-04-2023 Chart abstracting Chao Marmolejo MD Work Phone: [facility] Start: 09-18-2023 End: 09-18-2023 ambulatory FRIEDA MILLS Not Available Start: 08-20-2023 End: 08-20-2023 ambulatory DINH LOPEZ Not Available Start: 07-26-2023 End: 07-26-2023 ambulatory DINH LOPEZ Not Available Start: 07-15-2023 End: 07-15-2023 ambulatory Chery Aranda Other [facility] Other Start: 07-15-2023 Office outpatient vi sit 10 minutes Chery Aranda [facility] Start: 06-14-2023 End: 06-14-2023 ambulatory Chery Aranda Other [facility] Other Start: 06-14-2023 Office outpatient vi sit 10 minutes Chery Aranda [facility] Start: 05-16-2023 End: 05-16-2023 ambulatory Chery Aranda Other [facility] Other Start: 05-16-2023 Office outpatient vi sit 10 minutes Chery Aranda [facility] Start: 04-15-2023 End: 04-15-2023 ambulatory Chery Aranda Other [facility] Other Start: 04-15-2023 Office outpatient ne w 45 minutes Chery Aranda [facility] Start: 07-31-2022 End: 07-31-[address] [...] Start: 10-22-2023 End: 10-22-2023 Patient encounter procedure [facility] Start: 04-26-2023 Influenza vaccination Influenza Vacc ine [facility] Start: 2011 Screening for malign ant neoplasm of cervix Pap Smear [facility] Start: 2009 DTaP,Tdap and Td Vaccines (1 - Tdap) DTaP,Tdap and Td Vaccines (1 - Tdap) [facility] Start: 2008 Adult BMI Screening Adult BMI Screen ing [facility] Start: 2002 Depression Screening Depression Scre ening [facility] Start: 2002 Tobacco Screening Tobacco Screening [facility] Immunizations Immunization Date Immunization Notes Care Provider Fa betty 09-08-2019 influenza virus vaccine, unspecified formulation Chao Ling MD Work Phone: [facility] Payers Date Payer Category Payer Private Health Insurance [employer] A ETNA POS [id number] 2017-Present [phone] [address] [place] [address] [id number] 1990 Unknown [id number] 2.840.1.030567.3.579.2.5 93 1990 Unknown [id number] 2.840.1.898509.3.579.2.5 93 1990 Unknown [id number] 2.16.840.1.035340.3.579.2.5 93 1990 Unknown [id number] 2.16.840.1.625294.3.579.2.5 1990 Unknown [id number] 2.16.840.1.782170.3.579.2.5 93 1990 Unknown [id number] 2.16.840.1.314262.3.579.2.5 93 1990 Unknown [id number] 2.16.840.1.844047.3.579.2.5 93 1990 Unknown [id number] 2.16.840.1.825577.3.579.2.5 93 1990 Unknown [id number] 2.16.840.1.026355.3.579.2.5 93 1990 Unknown [id number] 2.16.840.1.192359.3.579.2.5 93 1990 Unknown [id number] 2.16.840.1.646517.3.579.2.5 93 1990 Unknown [id number] 2.16.840.1.998330.3.579.2.5 93 1990 Unknown [id number] 2.16.840.1.021288.3.579.2.5 93 1990 Unknown [id number] 2.16.840.1.143922.3.579.2.5 93 1990 Unknown [id number] 2.16.840.1.737846.3.579.2.5 93 1990 Unknown [id number] 2.16.840.1.087036.3.579.2.5 93 1990 Unknown [id number] 2.16.840.1.875377.3.579.2.5 93 1990 Unknown [id number] 2.16.840.1.425522.3.579.2.5 93 1990 Unknown [id number] 2.16.840.1.485603.3.579.2.1 259 1990 Unknown [id number] 2.16.840.1.792527.3.579.2.1 259 1990 Unknown [id number] 2.16.840.1.578224.3.579.2.1 259 1990 Unknown [id number] 2.16.840.1.880215.3.579.2.1 259 1990 Unknown [id number] 2.16.840.1.504483.3.579.2.1 259 1990 Unknown [id number] 2.16.840.1.554925.3.579.2.1 259 1990 Unknown [id number] 2.16.840.1.877430.3.579.2.1 259 1959 Private Health Insurance [id number] 1959 Unknown [id number] Unknown [id number] 2.16.840.1.857861.3.579.2.5 93 Social History Date Type Detail Facility Unknown if ever smoked [facility] Other Start: 10-06-2020 End: 10-04-2023 Sex Assigned At [facility] Other Start: 09-11-2019 Tobacco smoking stat [facility] Never smoked tobacco [facility] Start: 09-11-2019 Tobacco use and exposure Smokeless tobacco non-user [facility] Start: 10-04-2023 Alcohol intake Ex-drinker (finding) [facility] Start: 10-06-2020 End: 10-04-2023 History of Social function [facility] Childcare Unknown [facility] Start: 05-30-2023 [facility] Start: 1990 Sex Assigned At Not on file P [facility] Evaluation note 07-15-2023 Note Date & Type Note Facility 07-15-2023 Evaluation note Encounter Date Diagnosis Assessment Notes Jun, First trimester (ICD-10 - Z34.91) Continued followup w Dr. Marroquin. No further adipex. [facility] Other Evaluation note 06-14-2023 Note Date & [...] index [BMI] 39.0-39.9, adult (ICD-10 - Z68.39) [facility] Other Evaluation note 05-16-2023 Note Date & [...] index [BMI] 40.0-44.9, adult (ICD-10 - Z68.41) [facility] Other Evaluation note 04-15-2023 Note Date & [...] index [BMI] 40.0-44.9, adult (ICD-10 - Z68.41) [facility] Other History general Narrative - Reported Note Date & Type Note Facility History general Narrative - Reported Type Surgical History T & A 2009 Surgical History Gallbladder 2012 [facility] Other History general Narrative - Reported Note Date & Type Note Facility History general Narrative - Reported Type Surgical History T & A 2009 Surgical History Gallbladder 2013 Hospitalization History see surgical hx [facility] Other History general Narrative - Reported Note [...] Gallbladder 2012 Hospitalization History see surgical hx [facility] Other Instructions Note Date & Type Note [...] and content) DATE CREATED AUTHOR 03/11/2020 Villarreal Refugio [facility] DATE CREATED AUTHOR AUTHOR'S ORGANIZ ATION 08/04/2022 [facility] DATE CREATED AUTHOR AUTHOR'S ORGANIZ ATION 12/10/2023 [facility] DATE CREATED AUTHOR AUTHOR'S ORGANIZ ATION 12/13/2023 [facility] EPIC REASON FOR VISIT (unrecogniz ed section and content) ESTABLISH CARE1 month Follow up1 month Follow up1 month Follow up Care Teams (unrecognized sec tion and content) 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 [facility]. provides no warranty or guarantee of the accuracy or completeness of information in this document.
[2023-12-26 15:34] VITALS: BP 126/78; PULSE 78
== END 2023-12-26 16:00 | disposition home or self-care (01) ==
LOC: US 07:03 → FBC 15:02
PROVIDERS: PCP Family Medicine; Visit Provider Obstetrics & Gynecology
DX: O36.5930 Maternal care for other known or suspected poor fetal growth, third trimester, not applicable or unspecified (principal); Z3A.32 32 weeks gestation of pregnancy
CPT/HCPCS: 76818

== ENCOUNTER 2023-12-30 07:00 | Outpatient (OUT) | payer OTHER, SELFPAY ==
--- OUTSIDE RECORDS SUMMARY | 2023-12-30 07:03 | XMS_ITS | CCD ---
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 AND PIECES NECKTIE OPERATORPola Primary Care Provider COLIN BOWLING Referring Unavailable DINH MARROQUIN Primary Care Unavailable AYDE, DINH Attending Unavailable GENEFRIEDA JOYNER Attending Unavailable DINH MARROQUIN Attending Unavailable DINH MARROQUIN Attending Unavailable FRIEDA MILLS Attending Unavailable DINH MARROQUIN Attending Unavailable DINH MARROQUIN Attending Unavailable Medications [...] Active Start: 05-16-2023 [facility] Phentermine HCl 37.5 MG 1 capsule Orally Once a day for 30 days Apr, Active Start: 04-15-2023 [facility] Phentermine HCl 37.5 MG 1 capsule Orally Once a day for 30 days Mar, Active [id number] ac id 29 mg iron- 1 mg [...] Interpretation Reference Range Facility Tatum Roberson 10-26-2023 [place]ie tp. B1 <1:10 Normal <1:10 [facility] Comment on above: Performed By: #### C MVG, LUPPRO, AT3A, PROCAC, PROSAC, CMVM, CMIS, TOXOG, TOXOM, HOCYS #### [facility] [address] [place] [address] Materials Analyst: Tanvir Macias MD #### APTMUT, AF5MUT, AMTHFR, ACOXA9, APARVP, ACOXAB #### [facility] [address], [place] [id number] Materials Analyst: MD Tatum Santoyo. B2 1:20 Normal <1:10 [facility] Comment on above: Performed By: #### C MVG, LUPPRO, AT3A, PROCAC, PROSAC, CMVM, CMIS, TOXOG, TOXOM, HOCYS #### [facility] [address] [place] [address] Materials Analyst: Tanvir Macias MD #### APTMUT, AF5MUT, AMTHFR, ACOXA9, APARVP, ACOXAB #### [facility] [address], [place] [id number] Materials Analyst: MD Tatum Santoyo. B3 1:10 Normal <1:10 [facility] Comment on above: Performed By: #### C MVG, LUPPRO, AT3A, PROCAC, PROSAC, CMVM, CMIS, TOXOG, TOXOM, HOCYS #### [facility] [address] [place] [address] Materials Analyst: Tanvir Macias MD #### APTMUT, AF5MUT, AMTHFR, ACOXA9, APARVP, ACOXAB #### [facility] [address], [place] [id number] Materials Analyst: MD Tatum Santoyo B4 1:320 Abnormal <1:10 [facility] Comment on above: Performed By: #### C MVG, LUPPRO, AT3A, PROCAC, PROSAC, CMVM, CMIS, TOXOG, TOXOM, HOCYS #### [facility] [address] [place] [address] Materials Analyst: Tanvir Macias MD #### APTMUT, AF5MUT, AMTHFR, ACOXA9, APARVP, ACOXAB #### [facility] [address] [place] [address] Materials Analyst: MD Tatum Santoyo. B5 <1:10 Normal <1:10 [facility] Comment on above: Performed By: #### C MVG, LUPPRO, AT3A, PROCAC, PROSAC, CMVM, CMIS, TOXOG, TOXOM, HOCYS #### [address] [id number] Materials Analyst: Tanvir Macias MD #### APTMUT, AF5MUT, AMTHFR, ACOXA9, APARVP, ACOXAB #### [address] [address] Materials Analyst: MD Tatum Santoyo. B6 <1:10 Normal <1:10 [facility] Comment on above: Result Comment: (NOT E) INTERPRETIVE INFORMATION: Coxsackie B Virus Single positive antibody titers of greater than or equal to 1:80 may indicate past or current infection. Sero- conversion or an increase in titers between acute and convalescent sera of at least fourfold is considered strong evidence of current or recent infection. Performed By: [facility] [address] [place] [address] Balancing Machine Operator: Nadeem Mcarthur MD, PhD CLIA Number: [id number] Performed By: #### C MVG, LUPPRO, AT3A, PROCAC, PROSAC, CMVM, CMIS, TOXOG, TOXOM, HOCYS #### [address] [id number] Materials Analyst: Tanvir Macias MD #### APTMUT, AF5MUT, AMTHFR, ACOXA9, APARVP, ACOXAB #### [address] [phone] Materials Analyst: Enrique Arthur MD Factor V Mutationon 10-22-19 24 F 5 SPECIMEN Whole Blood Normal [facility] Comment on above: Performed By: #### C MVG, LUPPRO, AT3A, PROCAC, PROSAC, CMVM, CMIS, TOXOG, TOXOM, HOCYS #### [facility] [address] [place] [address] Materials Analyst: Tanvir Macias MD #### APTMUT, AF5MUT, AMTHFR, ACOXA9, APARVP, ACOXAB #### [facility] [address] [place] [address] Materials Analyst: Enrique Arthur MD FACTOR 5 MUTATION Negative Normal [facility] Comment on above: Result Comment: (NOT E) Indication for testing: Assess genetic risk for thrombosis. NEGATIVE: The factor V Leiden variant, c.1601G>A; p.[id number], was not detected. This does not exclude [...] function in the F5 gene variant c.1601G>A (p.Ihf646Bkx). Legacy nomenclature: [id number] (1691G>A) CLINICAL SENSITIVITY: 20-50 percent of individuals with an isolated VTE have the FVL variant. METHODOLOGY: Polymerase chain reaction and fluorescence monitoring. ANALYTICAL SENSITIVITY AND SPECIFICITY: 99 percent. LIMITATIONS: Diagnostic errors can occur due to rare sequence variations. F5 gene mutations, other than p.[id number], will not be detected. This test was developed and its performance characteristics determined by [facility]. It has not been cleared or approved by the [place] Food and Drug Administration. This test was performed in a CLIA certified laboratory and is intended for clinical purposes. Counseling and informed consent are recommended for genetic testing. Consent forms are available online. Performed By: [facility] [address] [place] [address] Balancing Machine Operator: Nadeem Mcarthur MD, PhD CLIA Number: [id number] Performed By: #### C MVG, LUPPRO, AT3A, PROCAC, PROSAC, CMVM, CMIS, TOXOG, TOXOM, HOCYS #### [place] [address] Materials Analyst: Tanvir Macias MD #### APTMUT, AF5MUT, AMTHFR, ACOXA9, APARVP, ACOXAB #### [place] [id number] Materials Analyst: Enrique Arthur MD Coxsackie A9 Titeron 024 Coxsackie A9 Titer <1:8 Normal <1:8 [facility] Comment on above: Result Comment: (NOT E) INTERPRETIVE INFORMATION: Coxsackie A Serotype 9 Titer Single positive antibody titers of greater than 1:32 may indicate past or current infection. Seroconversion or an increase in titers between acute and convalescent sera of at least fourfold is considered strong evidence of current or recent infection. Performed By: [facility] [address] [place], [place] [id number] Balancing Machine Operator: Nadeem Mcarthur MD, PhD CLIA Number: [id number] Performed By: #### C MVG, LUPPRO, AT3A, PROCAC, PROSAC, CMVM, CMIS, TOXOG, TOXOM, HOCYS #### [address] [address] Materials Analyst: Tanvir Macias MD #### APTMUT, AF5MUT, AMTHFR, ACOXA9, APARVP, ACOXAB #### [facility] [address] [place] [address] Materials Analyst: Enrique Arthur MD MTHFR Gene Mutationon 2023 MTHFR 1286 A>C Mut Negative Normal [facility] Comment on above: Performed By: #### C MVG, LUPPRO, AT3A, PROCAC, PROSAC, CMVM, CMIS, TOXOG, TOXOM, HOCYS #### [address] [address] Materials Analyst: Tanvir Macias MD #### APTMUT, AF5MUT, AMTHFR, ACOXA9, APARVP, ACOXAB #### [facility] [address], [place] [id number] Materials Analyst: Enrique Arthur MD MTHFR 655C>T Mut Heterozygous Normal [facility] Comment on above: Performed By: #### C MVG, LUPPRO, AT3A, PROCAC, PROSAC, CMVM, CMIS, TOXOG, TOXOM, HOCYS #### [address] [address] Materials Analyst: Tanvir Macias MD #### APTMUT, AF5MUT, AMTHFR, ACOXA9, APARVP, ACOXAB #### [facility] [address], [place] [id number] Materials Analyst: Enrique Arthur MD MTHFR Interpretation See Note Normal [facility] Comment on above: Result Comment: (NOT E) Indication for testing: Determine genetic contribution to hyperhomocysteinemia. Heterozygous MTHFR c.665C>T: One copy of the MTHFR variant c.665C>T (previously designated C677T) was detected; the c.1286A>C (previously designated N4780Y) variant was not identified. The common variant [...] has an effect on cardiovascular disease. The [employer] Practice Guidelines indicate [...] a contributing factor to hyperhomocysteinemia. Variants Tested: c.665C>T(p.Ukm081Men) and c.1286A>C(p.Ruh663Zxd). (legacy names C677T and A0029V, respectively). Clinical Sensitivity: Undefined; hyperhomocysteinemia is caused [...] developed and its performance characteristics determined by [facility]. It has not been cleared or approved by the [place] Food and Drug Administration. This test was performed in a CLIA certified laboratory and is intended for clinical purposes. Counseling and informed consent are recommended for genetic testing. Consent forms are available online. Performed By: [facility] [address] [place], [place] [id number] Balancing Machine Operator: Nadeem Mcarthur MD, PhD CLIA Number: [id number] Performed By: #### C MVG, LUPPRO, AT3A, PROCAC, PROSAC, CMVM, CMIS, TOXOG, TOXOM, HOCYS #### [facility] [address] [place] [address] Materials Analyst: Tanvir Macias MD #### APTMUT, AF5MUT, AMTHFR, ACOXA9, APARVP, ACOXAB #### [facility] [address] [place] [address] Materials Analyst: Enrique Arthur MD MTHFR SPECIMEN Whole Blood Normal [facility] Comment on above: Performed By: #### C MVG, LUPPRO, AT3A, PROCAC, PROSAC, CMVM, CMIS, TOXOG, TOXOM, HOCYS #### [facility] [address] [place] [address] Materials Analyst: Tanvir Macias MD #### APTMUT, AF5MUT, AMTHFR, ACOXA9, APARVP, ACOXAB #### [facility] [address], [place] [id number] Materials Analyst: Enrique Arthur MD PT Mutation [id number] 10-21-19 24 PT [id number] VARIANT Negative Normal [facility] Comment on above: Result Comment: (NOT E) Indication for testing: Assess genetic risk for thrombosis. NEGATIVE: The Factor II, prothrombin N12318L mutation, was not detected. Other causes of [...] Quintana, Ph.D. BACKGROUND INFORMATION: Prothrombin (F2) c.*97G>A (N57984F) Pathogenic Variant CHARACTERISTICS: The Factor II, c.*97G>A (L82353V) pathogenic variant is a common genetic risk [...] CAUSE: Homozygosity or heterozygosity for F2 c.*97G>A (P30485L). PATHOGENIC VARIANT TESTED: F2 c.*97G>A (Z86338O). CLINICAL SENSITIVITY FOR VENOUS THROMBOSIS: Approximately 10 percent. METHODOLOGY: Polymerase chain reaction and fluorescence monitoring. ANALYTICAL SENSITIVITY AND SPECIFICITY: 99 percent. LIMITATIONS: Diagnostic errors can occur due to rare sequence variations. F2 gene variants, other than c.*97G>A (D16321Z), will not be detected. This test was developed and its performance characteristics determined by [facility]. It has not been cleared or approved by the [place] Food and Drug Administration. This test was performed in a CLIA certified laboratory and is intended for clinical purposes. Counseling and informed consent are recommended for genetic testing. Consent forms are available online. Performed By: [facility] [address] [place] [address] Balancing Machine Operator: Nadeem Mcarthur MD, PhD CLIA Number: [id number] Performed By: #### C MVG, LUPPRO, AT3A, PROCAC, PROSAC, CMVM, CMIS, TOXOG, TOXOM, HOCYS #### [address] [address] Materials Analyst: Tanvir Macias MD #### APTMUT, AF5MUT, AMTHFR, ACOXA9, APARVP, ACOXAB #### [facility] [address] [place] [phone] Materials Analyst: Enrique Arthur MD PT PCR SPECIMEN Whole Blood Normal [facility] Comment on above: Performed By: #### C MVG, LUPPRO, AT3A, PROCAC, PROSAC, CMVM, CMIS, TOXOG, TOXOM, HOCYS #### [facility] [place], [place] [id number] Materials Analyst: Tanvir Macias MD #### APTMUT, AF5MUT, AMTHFR, ACOXA9, APARVP, ACOXAB #### [facility] [address] [place] [address] Materials Analyst: Enrique Arthur MD Parvovirus B19 Panelon 10-21 Parvovirus IgG B19 1.80 IV High <=0.90 [facility] Comment on above: Result Comment: (NOT [...] PROSAC, CMVM, CMIS, TOXOG, TOXOM, HOCYS #### [facility] [place] [address] Materials Analyst: Tanvir Macias MD #### APTMUT, AF5MUT, AMTHFR, ACOXA9, APARVP, ACOXAB #### [facility] [address] [place], [place] [id number] Materials Analyst: Enrique Arthur MD Parvovirus IgM B19 0.12 IV Normal <=0.90 [facility] Comment on above: Result Comment: (NOT E) INTERPRETIVE INFORMATION: Parvovirus B19 Antibody, IgM EFFECTIVE 07/04/2023 REFERENCE INTERVAL CHANGE Due to reagent kit coal deliverer recall, an alternate kit has been validated and implemented by [facility]. The following Reference Interval applies to [...] levels of specific IgM antibodies. Performed By: [facility] [address] [place] [address] Balancing Machine Operator: Nadeem Mcarthur MD, PhD CLIA Number: [id number] Performed By: #### C MVG, LUPPRO, AT3A, PROCAC, PROSAC, CMVM, CMIS, TOXOG, TOXOM, HOCYS #### [facility] [place] [address] Materials Analyst: Tanvir Macias MD #### APTMUT, AF5MUT, AMTHFR, ACOXA9, APARVP, ACOXAB #### [facility] [address] [place] [address] Materials Analyst: Enrique Arthur MD Antithrombin III Becka 10-18 Antithrombin III Act 106 % Normal 83-122 [facility] Comment on above: Result Comment: Patients receiving Hirudin may have a falsely decreased Antitrombin III Activity. Performed By: #### C MVG, LUPPRO, AT3A, PROCAC, PROSAC, CMVM, CMIS, TOXOG, TOXOM, HOCYS #### [facility] [address] [place] [address] [phone] Materials Analyst: Tanvir Macias MD #### APTMUT, AF5MUT, AMTHFR, ACOXA9, APARVP, ACOXAB #### [facility] [address] [place] [phone] Materials Analyst: Enrique Arthur MD Lupus Anticoagulanton 2023 Anticardiolipin IgA 2.4 APL Normal 0.0-14.0 [facility] Comment on above: Result Comment: Reference Range: <14.0 Negative 14.0-20.0 Equivocal >20.0 Positive When results are Equivocal, it is recommended to retest after 4-6 weeks. Performed By: #### C MVG, LUPPRO, AT3A, PROCAC, PROSAC, CMVM, CMIS, TOXOG, TOXOM, HOCYS #### [address] [phone] Materials Analyst: Tanvir Macias MD #### APTMUT, AF5MUT, AMTHFR, ACOXA9, APARVP, ACOXAB #### [facility] [address] [place] [address] Materials Analyst: Enrique Arthur MD Anticardiolipin IgG 2.8 GPL Normal 0.0-10.0 [facility] Comment on above: Result Comment: Reference Range: <10.0 Negative 10.0-40.0 Equivocal >40.0 Positive Performed By: #### C MVG, LUPPRO, AT3A, PROCAC, PROSAC, CMVM, CMIS, TOXOG, TOXOM, HOCYS #### [address] [phone] Materials Analyst: Tanvir Macias MD #### APTMUT, AF5MUT, AMTHFR, ACOXA9, APARVP, ACOXAB #### [facility] [address] [place] [address] Materials Analyst: Enrique Arthur MD Anticardiolipin IgM <0.8 Normal 0.0-10.0 [facility] Comment on above: Result Comment: Reference Range: <10.0 Negative 10.0-40.0 Equivocal >40.0 Positive Performed By: #### C MVG, LUPPRO, AT3A, PROCAC, PROSAC, CMVM, CMIS, TOXOG, TOXOM, HOCYS #### [address] [phone] Materials Analyst: Tanvir Macias MD #### APTMUT, AF5MUT, AMTHFR, ACOXA9, APARVP, ACOXAB #### [facility] [address], [place] [phone] Materials Analyst: Enrique Arthur MD Dilute Austin Viper Negative Normal [facility] Comment on above: Performed By: #### C MVG, LUPPRO, AT3A, PROCAC, PROSAC, CMVM, CMIS, TOXOG, TOXOM, HOCYS #### [facility] [address] [place] [address] Materials Analyst: Tanvir Macias MD #### APTMUT, AF5MUT, AMTHFR, ACOXA9, APARVP, ACOXAB #### [facility] [address], [place] [id number] Materials Analyst: Enrique Arthur MD Miscellaneouson 10-18-2023 Send Out Report [facility] [employer] [id number] Normal [facility] Comment on above: Result Comment: UNIT Y Performed By: #### C MVG, LUPPRO, AT3A, PROCAC, PROSAC, CMVM, CMIS, TOXOG, TOXOM, HOCYS #### [address] [phone] Materials Analyst: Tanvir Macias MD #### APTMUT, AF5MUT, AMTHFR, ACOXA9, APARVP, ACOXAB #### [facility] [address] [place] [address] Materials Analyst: Enrique Arthur MD Protein C Activityon 024 Protein C Activity 91 % Normal >80 [facility] Comment on above: Result Comment: Patients on [...] PROSAC, CMVM, CMIS, TOXOG, TOXOM, HOCYS #### [facility] [address] [place] [address] [phone] Materials Analyst: Tanvir Macias MD #### APTMUT, AF5MUT, AMTHFR, ACOXA9, APARVP, ACOXAB #### [address] [address] Materials Analyst: Enrique Arthur MD Protein S Activityon 024 Protein S Activity 79 % Normal 59-130 [facility] Comment on above: Result Comment: Patients on [...] PROSAC, CMVM, CMIS, TOXOG, TOXOM, HOCYS #### [facility] [address] [place] [address] [phone] Materials Analyst: Tanvir Macias MD #### APTMUT, AF5MUT, AMTHFR, ACOXA9, APARVP, ACOXAB #### [address] [phone] Materials Analyst: Enrique Arthur MD Toxoplasma Ab,IgGon 10-18-19 24 Toxoplasma Ab,IgG 1.2 IU/mL Normal [facility] Comment on above: Result Comment: REFERENCE [...] PROSAC, CMVM, CMIS, TOXOG, TOXOM, HOCYS #### [facility] [address] [place] [address] Materials Analyst: Tanvir Macias MD #### APTMUT, AF5MUT, AMTHFR, ACOXA9, APARVP, ACOXAB #### [address] [phone] Materials Analyst: Enrique Arthur MD Toxoplasma Ab,IgMon 10-18-19 24 Toxoplasma Ab,IgM 0.56 Index Normal [facility] Comment on above: Result Comment: REFERENCE RANGE: <0.90 NON-REACTIVE 0.90 TO 0.99 INDETERMINANT >=1.00 REACTIVE Performed By: #### C MVG, LUPPRO, AT3A, PROCAC, PROSAC, CMVM, CMIS, TOXOG, TOXOM, HOCYS #### [facility] [address] [place] [address] [phone] Materials Analyst: Tanvir Macias MD #### APTMUT, AF5MUT, AMTHFR, ACOXA9, APARVP, ACOXAB #### [facility] [address] [place] [address] Materials Analyst: Enrique Arthur MD CMV Ab,IgGon 10-17-2023 CMV Ab,IgG 523.0 High <0.5 [facility] Comment on above: Result Comment: Reference Range: [...] PROSAC, CMVM, CMIS, TOXOG, TOXOM, HOCYS #### [address] [address] Materials Analyst: Tanvir Macias MD #### APTMUT, AF5MUT, AMTHFR, ACOXA9, APARVP, ACOXAB #### [facility] [address] [place] [address] Materials Analyst: Enrique Arthur MD CMV Ab,IgMon 10-17-2023 CMV Ab,IgM 0.2 Normal <0.7 [facility] Comment on above: Result Comment: Reference Range: [...] PROSAC, CMVM, CMIS, TOXOG, TOXOM, HOCYS #### [facility] [address] [place] [address] Materials Analyst: Tanvir Macias MD #### APTMUT, AF5MUT, AMTHFR, ACOXA9, APARVP, ACOXAB #### [facility] [address] [place] [address] Materials Analyst: Enrique Arthur MD Homocysteineon 10-17-2023 Homocysteine 5.7 umol/L Normal <15.0 [facility] Comment on above: Performed By: #### C MVG, LUPPRO, AT3A, PROCAC, PROSAC, CMVM, CMIS, TOXOG, TOXOM, HOCYS #### [address] [address] Materials Analyst: Tanvir Macias MD #### APTMUT, AF5MUT, AMTHFR, ACOXA9, APARVP, ACOXAB #### [facility] [address] [place] [address] Materials Analyst: Enrique Arthur MD Lupus Anticoagulanton 2023 aPTT Coag (Bld) [Time] 27.6 s Normal 23.0-36.5 [facility] Comment on above: Result Comment: IV Heparin Therapy Range: 66.0-92.0 sec Performed By: #### C MVG, LUPPRO, AT3A, PROCAC, PROSAC, CMVM, CMIS, TOXOG, TOXOM, HOCYS #### [address] [address] Materials Analyst: Tanvir Macias MD #### APTMUT, AF5MUT, AMTHFR, ACOXA9, APARVP, ACOXAB #### [facility] [address] [place] [address] Materials Analyst: Enrique Arthur MD INR Coag (PPP) [Relative time] 1.0 {INR} Normal [facility] Comment on above: Result Comment: Therapeutic Range: Moderate Anticoagulant Intensity: INR = 2.0-3.0 High Anticoagulant Intensity: INR = 2.5-3.5 Performed By: #### C MVG, LUPPRO, AT3A, PROCAC, PROSAC, CMVM, CMIS, TOXOG, TOXOM, HOCYS #### [facility] [address] [place] [address] [phone] Materials Analyst: Tanvir Macias MD #### APTMUT, AF5MUT, AMTHFR, ACOXA9, APARVP, ACOXAB #### [facility] [address] [place] [address] Materials Analyst: Enrique Arthur MD PT Coag (PPP) [Time] 13.5 s Normal 11.7-14.9 [facility] Comment on above: Performed By: #### C MVG, LUPPRO, AT3A, PROCAC, PROSAC, CMVM, CMIS, TOXOG, TOXOM, HOCYS #### [facility] [address] [place] [address] Materials Analyst: Tanvir Macias MD #### APTMUT, AF5MUT, AMTHFR, ACOXA9, APARVP, ACOXAB #### [facility] [address] [place] [address] Materials Analyst: Enrique Arthur MD Basic Metabolic Panelon Glucose [Mass/Vol] 97 mg/dL [facility] CBC without diffOrdered By: Mayra Victoria on 07-26-2023 Hematocrit (Bld) [Volume fraction] 34.8 % [facility] Hemoglobin (Bld) [Mass/Vol] 11.3 g/dL [facility] Platelets (Bld) [#/Vol] 292 10*3/uL [facility] Rbc Mcv (Fl) By Automated Count 83.5 [facility] HIV 1&2 AB/AG Screen (P24 AG )on 07-26-2023 HIV 1&2 AB/AG Non-Reactive [facility] Hemoglobin A1con 07-26-2023 HbA1c (Bld) [Mass fraction] 5.0 % 4.0 - 6.0 % [facility] Hepatitis B surface antigeno n 07-26-2023 Hepatitis B Surface Antigen Negative [facility] No Panel InformationOrdered By: Mayra Victoria on 07-26-2023 [facility] Rubella IGG immune statuson 07-26-2023 Rubella immune IgG 5.26 [facility] Syphilis Total(Unknown Syphi lis Status)on 07-26-2023 Syphilis Non-Reactive [facility] TSHon 07-26-2023 TSH Qn 1.99 m[IU]/L [facility] Type and screenon 07-26-2023 Abo/Rh(D) Positive [facility] CBC AUTO DIFFon 07-28-2022 BASO # 0.0 103/ul Normal 0.0-0.1 [facility] Comment on above: Performed By: #### H CVPCRR #### [facility] [address] [place] [address] [address] Carleen Underwood Basophils/100 WBC (Bld) 0.3 % Normal 0.2-2.0 [facility] Comment on above: Performed By: #### H CVPCRR #### [facility] [address] [place] [address] Dr. Carleen Underwood EO # 0.2 103/ul Normal 0.0-0.7 [facility] Comment on above: Performed By: #### H CVPCRR #### [facility] [address] [address] [address] Carleen Underwood Eosinophils/100 WBC (Bld) 1.5 % Normal 0.9-7.0 [facility] Comment on above: Performed By: #### H CVPCRR #### [facility] [address] [place] [address] Dr. Carleen Underwood Erythrocyte distribution width (RBC) [Ratio] 14.9 % Normal 11.0-15.0 [facility] Comment on above: Performed By: #### H CVPCRR #### [facility] [address] [address] [address] Carleen Underwood Hematocrit (Bld) [Volume fraction] 30.7 % Critically low 36.0-48.0 [facility] Comment on above: Performed By: #### H CVPCRR #### [facility] [address] [place] [address] Dr. Carleen Underwood Hemoglobin (Bld) [Mass/Vol] 9.4 g/dL Critically low 12.0-16.0 [facility] Comment on above: Performed By: #### H CVPCRR #### [facility] [address] [place] [address] Dr. Carleen Underwood IG # 0.07 10e3/ul Critically high 0.00-0.03 [facility] Comment on above: Performed By: #### H CVPCRR #### [facility] [address] [place] [address] Dr. Carleen Underwood IG % 0.6 % Critically high 0.0-0.5 [facility] Comment on above: Performed By: #### H CVPCRR #### [facility] [address] [place] [address] Dr. Carleen Underwood LYMPH # 2.7 103/ul Normal 1.2-3.8 [facility] Comment on above: Performed By: #### H CVPCRR #### [facility] [address] [place] [address] Dr. Carleen Underwood Lymphocytes/100 WBC (Bld) 24.1 % Normal 20.5-60.0 [facility] Comment on above: Performed By: #### H CVPCRR #### [facility] [address] [place] [address] Dr. Carleen Underwood MANUAL DIFF REQ NO Normal [facility] Comment on above: Performed By: #### H CVPCRR #### [facility] [address] [place] [address] Dr. Carleen Underwood MCH (RBC) [Entitic mass] 23.3 pg Critically low 26.7-34.0 [facility] Comment on above: Performed By: #### H CVPCRR #### [facility] [address] [address] [address] Carleen Underwood MCHC (RBC) [Mass/Vol] 30.6 g/dL Normal 29.9-35.2 [facility] Comment on above: Performed By: #### H CVPCRR #### [facility] [address] [place] [address] Dr. Carleen Underwood MCV (RBC) [Entitic vol] 76.2 fL Critically low 81.0-99.0 [facility] Comment on above: Performed By: #### H CVPCRR #### [facility] [address] [place] [address] Dr. Carleen Underwood MONO # 0.7 103/ul Normal 0.3-0.8 [facility] Comment on above: Performed By: #### H CVPCRR #### [facility] [address] [place] [address] Dr. Carleen Underwood Monocytes/100 WBC (Bld) 5.8 % Normal 1.7-12.0 [facility] Comment on above: Performed By: #### H CVPCRR #### [facility] [address] [place] [address] Dr. Carleen Underwood NEUT # 7.6 103/ul Critically high 1.4-6.5 [facility] Comment on above: Performed By: #### H CVPCRR #### [facility] [address] [place] [address] Dr. Carleen Underwood Neutrophils/100 WBC (Bld) 67.7 % Normal 43.0-75.0 [facility] Comment on above: Performed By: #### H CVPCRR #### [facility] [address] [address] [address] Carleen Underwood Platelet mean volume (Bld) [Entitic vol] 11.1 fL Normal 9.5-13.5 [facility] Comment on above: Performed By: #### H CVPCRR #### [facility] [address] [address] [address] Carleen Underwood PLT 242 103/ul Normal 150-450 [facility] Comment on above: Performed By: #### H CVPCRR #### [facility] [address] [place] [address] Dr. Carleen Underwood RBC 4.03 106/ul Critically low 4.20-5.40 [facility] Comment on above: Performed By: #### H CVPCRR #### [facility] [address] [place] [address] Dr. Carleen Underwood WBC 11.2 103/ul Critically high 4.0-11.0 [facility] Comment on above: Performed By: #### H CVPCRR #### [facility] [address] [place] [address] Dr. Carleen Underwood CBC AUTO DIFFon 07-27-2022 BASO # 0.0 103/ul Normal 0.0-0.1 [facility] Comment on above: Performed By: #### G LU1HR #### [facility] [address] [place] [address] Dr. Carleen Underwood Basophils/100 WBC (Bld) 0.5 % Normal 0.2-2.0 [facility] Comment on above: Performed By: #### G LU1HR #### [facility] [address] [place] [address] Dr. Carleen Underwood EO # 0.1 103/ul Normal 0.0-0.7 [facility] Comment on above: Performed By: #### G LU1HR #### [facility] [address] [place] [address] Dr. Carleen Underwood Eosinophils/100 WBC (Bld) 1.2 % Normal 0.9-7.0 [facility] Comment on above: Performed By: #### G LU1HR #### [facility] [address] [place] [address] Dr. Carleen Underwood Erythrocyte distribution width (RBC) [Ratio] 14.9 % Normal 11.0-15.0 [facility] Comment on above: Performed By: #### G LU1HR #### [facility] [address] [place] [address] Dr. Carleen Underwood Hematocrit (Bld) [Volume fraction] 29.6 % Critically low 36.0-48.0 [facility] Comment on above: Performed By: #### G LU1HR #### [facility] [address] [place] [address] Dr. Carleen Underwood Hemoglobin (Bld) [Mass/Vol] 9.3 g/dL Critically low 12.0-16.0 [facility] Comment on above: Performed By: #### G LU1HR #### [facility] [address] [place] [address] Dr. Carleen Underwood IG # 0.04 10e3/ul Critically high 0.00-0.03 [facility] Comment on above: Performed By: #### G LU1HR #### [facility] [address] [place] [address] Dr. Carleen Underwood IG % 0.5 % Normal 0.0-0.5 [facility] Comment on above: Performed By: #### G LU1HR #### [facility] [address] [place] [address] Dr. Carleen Underwood LYMPH # 2.1 103/ul Normal 1.2-3.8 [facility] Comment on above: Performed By: #### G LU1HR #### [facility] [address] [place] [address] Dr. Carleen Underwood Lymphocytes/100 WBC (Bld) 25.5 % Normal 20.5-60.0 [facility] Comment on above: Performed By: #### G LU1HR #### [facility] [address] [place] [address] Dr. Carleen Underwood MANUAL DIFF REQ NO Normal [facility] Comment on above: Performed By: #### G LU1HR #### [facility] [address] [place] [address] Dr. Carleen Underwood MCH (RBC) [Entitic mass] 23.2 pg Critically low 26.7-34.0 [facility] Comment on above: Performed By: #### G LU1HR #### [facility] [address] [place] [address] Dr. Carleen Underwood MCHC (RBC) [Mass/Vol] 31.4 g/dL Normal 29.9-35.2 [facility] Comment on above: Performed By: #### G LU1HR #### [facility] [address] [place] [address] Dr. Carleen Underwood MCV (RBC) [Entitic vol] 73.8 fL Critically low 81.0-99.0 [facility] Comment on above: Performed By: #### G LU1HR #### [facility] [address] [place] [address] Dr. Carleen Underwood MONO # 0.5 103/ul Normal 0.3-0.8 [facility] Comment on above: Performed By: #### G LU1HR #### [facility] [address] [place] [address] Dr. Carleen Underwood Monocytes/100 WBC (Bld) 6.2 % Normal 1.7-12.0 [facility] Comment on above: Performed By: #### G LU1HR #### [facility] [address] [place] [address] Dr. Carleen Underwood NEUT # 5.4 103/ul Normal 1.4-6.5 [facility] Comment on above: Performed By: #### G LU1HR #### [facility] [address] [place] [address] Dr. Carleen Underwood Neutrophils/100 WBC (Bld) 66.1 % Normal 43.0-75.0 [facility] Comment on above: Performed By: #### G LU1HR #### [facility] [address] [place] [address] Dr. Carleen Underwood Platelet mean volume (Bld) [Entitic vol] 11.3 fL Normal 9.5-13.5 [facility] Comment on above: Performed By: #### G LU1HR #### [facility] [address] [place] [address] Dr. Carleen Underwood PLT 238 103/ul Normal 150-450 [facility] Comment on above: Performed By: #### G LU1HR #### [facility] [address] [place] [address] Dr. Carleen Underwood RBC 4.01 106/ul Critically low 4.20-5.40 [facility] Comment on above: Performed By: #### G LU1HR #### [facility] [address] [place] [address] Dr. Carleen Underwood WBC 8.2 103/ul Normal 4.0-11.0 [facility] Comment on above: Performed By: #### G LU1HR #### [facility] [address] [place] [address] Dr. Carleen Underwood Covid-19 PCR ([facility])on SARS-CoV-2 (COVID-19) RNA HUY+probe Ql (Unsp spec) Not detected Normal NOT DETECTED [facility] Comment on above: Result Comment: When diagnostic [...] for this test is supported by the [place] of Health and Human Service's declaration that [...] used). Performed By: #### H CVPCRR #### [facility] [address] [place] [address] Dr. Carleen Underwood DRUG SCREEN RAPID (URINE)on 07-27-2022 AMP Negative Normal NEGATIVE [facility] Comment on above: Performed By: #### G TT3P #### [facility] [address] [place] [address] Dr. Carleen Underwood BAR Negative Normal NEGATIVE [facility] Comment on above: Performed By: #### G TT3P #### [facility] [address] [place] [address] Dr. Carleen Underwood BUP Negative Normal NEGATIVE [facility] Comment on above: Performed By: #### G TT3P #### [facility] [address] [place] [address] Dr. Carleen Underwood BZO Negative Normal NEGATIVE [facility] Comment on above: Performed By: #### G TT3P #### [facility] [address] [place] [address] Dr. Carleen Underwood EMIGDIO Negative Normal NEGATIVE [facility] Comment on above: Performed By: #### G TT3P #### [facility] [address] [place] [address] Dr. Carleen Underwood CUT-OFFS SEE BELOW Normal [facility] Comment on above: Result Comment: AMP [...] ng/mL Performed By: #### G TT3P #### [facility] [address] [place] [address] Dr. Carelen Underwood DRUG CUT HEADER DRUG CLASS TEST SYST EM CUT-OFF CONCENTRATIONS ARE FOLLOWS: Normal [facility] Comment on above: Performed By: #### G TT3P #### [facility] [address] [place] [address] Dr. Carleen Underwood mAMP Negative Normal NEGATIVE [facility] Comment on above: Performed By: #### G TT3P #### [facility] [address] [place] [address] Dr. Carleen Underwood MTD Negative Normal NEGATIVE [facility] Comment on above: Performed By: #### G TT3P #### [facility] [address] [place] [address] Dr. Carleen Underwood OPI Negative Normal NEGATIVE [facility] Comment on above: Performed By: #### G TT3P #### [facility] [address] [place] [address] Dr. Carleen Underwood OXY Negative Normal NEGATIVE [facility] Comment on above: Performed By: #### G TT3P #### [facility] [address] [place] [address] Dr. Carleen Underwood PCP Negative Normal NEGATIVE [facility] Comment on above: Performed By: #### G TT3P #### [facility] [address] [place] [address] Dr. Carleen Underwood PPX Negative Normal NEGATIVE [facility] Comment on above: Performed By: #### G TT3P #### [facility] [address] [place] [address] Dr. Carleen Underwood TCA Negative Normal NEGATIVE [facility] Comment on above: Performed By: #### G TT3P #### [facility] [address] [place] [address] Dr. Carleen Underwood THC Negative Normal NEGATIVE [facility] Comment on above: Performed By: #### G TT3P #### [facility] [address] [place] [address] Dr. Carleen Underwood TYPE AND SCREENon 07-27-2022 TYPE AND SCREEN Negative Normal [facility] Comment on above: Performed By: #### G TT3P #### [facility] [address] [place] [address] Dr. Carleen Underwood US PREG AMNIOTIC FLUID [...] FOUZIA CALERO Date: 2022-07-12 16:24 Normal [facility] US PREG BIOPHY W NON STRESSo n [...] BRANDI ANN Date: 2022-07-09 16:35 Normal [facility] US PREG BIOPHY W NON STRESSo n [...] FOUZIA CALERO Date: 2022-07-06 17:28 Normal [facility] GROUP B STREP CULTUREon 06-26 S. agalactiae Ag Ql (Unsp spec) Culture Observations: NEGATIVE FOR GROUP B STREPTOCOCCUS. Normal [facility] Comment on above: Performed By: #### G TT3P #### [facility] [address] [place] [address] Dr. Carleen Underwood US PREG GROWTHon 07-05-2022 [...] Marroquin was notified of these findings by client experience administrator at time of imaging. 3. Biparietal diameter is at 8th percentile. Electronically authenticated by: FOUZIA CALERO Date: 2022-07-05 16:58 Normal [facility] US PREG GROWTHon 06-11-2022 US PREG [...] by: FOUZIA CALERO Date: 2022-06-11 16:22 Normal [facility] US PREG INCOMPLETE ANATOMYon 06-11-2022 US PREG [...] FOUZIA CALERO Date: 2022-06-11 16:20 Normal [facility] US PREG INCOMPLETE ANATOMYon 05-14-2022 US PREG [...] FOUZIA CALERO Date: 2022-05-14 17:15 Normal [facility] GTT 3 HR PREGon 04-24-2022 Glucose [Mass/Vol] 91 mg/dL Normal 74-106 [facility] Comment on above: Performed By: #### G TT3P #### [facility] [address] [address] [address] Carleen Underwood Glucose [Mass/Vol] 141 mg/dL Normal [facility] Comment on above: Performed By: #### G TT3P #### [facility] [address] [address] [address] Carleen Underwood Glucose [Mass/Vol] 103 mg/dL Normal [facility] Comment on above: Performed By: #### G TT3P #### [facility] [address] [address] [address] Carleen Underwood Glucose [Mass/Vol] 75 mg/dL Normal [facility] Comment on above: Performed By: #### G TT3P #### [facility] [address] [address] [address] Carleen Underwood US PREG INCOMPLETE ANATOMYon [...] cervical os Normal ventricular outflow tracts Normal [facility] PAP ACOG PANEL 2: 30 to 65on 04-20-2022 . . Normal [facility] Comment on above: Result Comment: Perf ormed at: WB Performed By: #### [id number] #### [facility] [address] [address] [address] Carleen Underwood Age Gdln ACOG Testing [facility] Comment on above: Performed By: #### [id number] #### [facility] [address] [address] [address] Carleen Underwood DIAGNOSIS: Comment Normal [facility] Comment on above: Result Comment: NEGA TIVE FOR INTRAEPITHELIAL LESION OR MALIGNANCY. Performed at: WB Performed By: #### [id number] #### [facility] [address] [address] [address] Carleen Underwood HPV Aptima Negative Normal Negative [facility] Comment on above: Result Comment: This nucleic acid amplification test detects fourteen high-risk HPV types (16,18,31,33,35,39,45,51,52,56,58,59,66,68) without differentiation. Performed at: =G Performed By: #### [id number] #### [facility] [address] [address] [address] Carleen Underwood Methodology: Comment Normal [facility] Comment on above: Result Comment: This liquid based ThinPrep(R) pap test was screened with the use of an image guided system. Performed at: WB Performed By: #### [id number] #### [facility] [address] [address] [address] Carleen Underwood Note: Comment Normal [facility] Comment on above: Result Comment: The Pap smear is a screening test designed to aid in the detection of premalignant and malignant conditions of the uterine cervix. It is not a diagnostic procedure and should not be used as the sole means of detecting cervical cancer. Both false-positive and false-negative reports do occur. . Performed at: WB Performed By: #### [id number] #### [facility] [address] [place] [address] Dr. Carleen Underwood Performed by: Comment Normal [facility] Comment on above: Result Comment: Carol Aguilar, [employer] Performed at: WB Performed By: #### [id number] #### [facility] [address] [place] [address] Dr. Carleen Underwood Specimen adequacy: Comment Normal [facility] Comment on above: Result Comment: Sati sfactory for evaluation. No endocervical component is identified. Performed at: WB Performed By: #### [id number] #### [facility] [address] [place] [address] Dr. Carleen Underwood CHLAMYDIA/GONOCOCCUS HUY (SW AB/URINE/PAPon 04-19-2022 Chlamydia trachomatis, HUY Negative Normal Negative [facility] Comment on above: Performed By: #### H CVPCRR #### [facility] [address] [place] [address] Dr. Carleen Underwood Neisseria gonorrhoeae, HUY Negative Normal Negative [facility] Comment on above: Performed By: #### H CVPCRR #### [facility] [address] [place] [address] Dr. Carleen Underwood VAGINITIS/VAGINOSIS DNA PROB Treu 04-19-2022 Priya species Negative Normal Negative [facility] Comment on above: Performed By: #### G LU1HR #### [facility] [address] [place] [address] Dr. Carleen Underwood Gardnerella vaginalis Negative Normal Negative [facility] Comment on above: Performed By: #### G LU1HR #### [facility] [address] [place] [address] Dr. Carleen Underwood Trichomonas vaginalis Negative Normal Negative [facility] Comment on above: Performed By: #### G LU1HR #### [facility] [address] [place] [address] Dr. Carleen Underwood GLUCOSE - 1HRon 04-17-2022 Glucose [Mass/Vol] 150 mg/dL Critically high 74-106 [facility] Comment on above: Performed By: #### G LU1HR #### [facility] [address] [place] [address] Dr. Carleen Underwood HEMOGRAM AND PLATELon 2021 Hematocrit (Bld) [Volume fraction] 31.9 % Critically low 36.0-48.0 [facility] Comment on above: Performed By: #### H H #### [facility] [address] [place] [address] Dr. Carleen Underwood Hemoglobin (Bld) [Mass/Vol] 10.3 g/dL Critically low 12.0-16.0 [facility] Comment on above: Performed By: #### H H #### [facility] [address] [place] [address] Dr. Carleen Underwood MCH (RBC) [Entitic mass] 26.6 pg Critically low 26.7-34.0 [facility] Comment on above: Performed By: #### H H #### [facility] [address] [place] [address] Dr. Carleen Underwood MCHC (RBC) [Mass/Vol] 32.3 g/dL Normal 29.9-35.2 [facility] Comment on above: Performed By: #### H H #### [facility] [address] [place] [address] Dr. Carleen Underwood MCV (RBC) [Entitic vol] 82.4 fL Normal 81.0-99.0 [facility] Comment on above: Performed By: #### H H #### [facility] [address] [place] [address] Dr. Carleen Underwood PLT 233 103/ul Normal 150-450 [facility] Comment on above: Performed By: #### H H #### [facility] [address] [place] [address] Dr. Carleen Underwood RBC 3.87 106/ul Critically low 4.20-5.40 [facility] Comment on above: Performed By: #### H H #### [facility] [address] [address] [address] Carleen Underwood WBC 8.5 103/ul Normal 4.0-11.0 [facility] Comment on above: Performed By: #### H H #### [facility] [address] [address] [address] Carleen Underwood AFP MATERNAL FOR SPINA BIFID Aon 03-22-2022 AFP MoM 1.08 Normal [facility] Comment on above: Performed By: #### H CVPCRR #### [facility] [address] [address] [address] Carleen Underwood AFP Value 43.1 ng/mL Normal [facility] Comment on above: Performed By: #### H CVPCRR #### [facility] [address] [address] [address] Carleen Underwood AFP, Serum for Spina Bifida Report Normal [facility] Comment on above: Performed By: #### H CVPCRR #### [facility] [address] [address] [address] Carleen Underwood Comment Comment Normal [facility] Comment on above: Result Comment: Re Quick, Ph.D., [facility] Director . References: Available Upon Request. . Multiples Of Median Cutoffs For AFP Elevations [place] 2.5 Black 2.8 IDD 2.0 Twins 4.5 Abbreviation Definitions IDD - Insulin Dep Diabetes OSBR - Open Spina Bifida Risk . For further inquiries contact [employer] [facility] at [phone]. . This test was developed and its performance characteristics determined by [employer]. It has not been cleared or approved by the Food and Drug Administration. Performed By: #### H CVPCRR #### [facility] [address] [place] [address] Dr. Carleen Underwood Gest Age Collection Date 19.4 weeks Normal [facility] Comment on above: Performed By: #### H CVPCRR #### [facility] [address] [place] [address] Dr. Carleen Underwood Gestat, Age Based on LMP Normal [facility] Comment on above: Result Comment: Reca lculations are not recommended when gestational dating by LMP and ultrasound are within 10 days. Performed By: #### H CVPCRR #### [facility] [address] [address] [address] Carleen Underwood Insulin Dep Diabetes No Normal [facility] Comment on above: Performed By: #### H CVPCRR #### [facility] [address] [address] [address] Carleen Underwood Interpretation Comment Normal [facility] Comment on above: Result Comment: Inte [...] Customer Services to discuss available options. The [place] [employer] recommends amniocentesis be offered to women age 35 and older. Performed By: #### H CVPCRR #### [facility] [address] [place] [address] Dr. Carleen Underwood [age] [facility] Comment on above: Performed By: #### H CVPCRR #### [facility] [address] [place] [address] Dr. Carleen Underwood Multiple Gestation No Normal [facility] Comment on above: Performed By: #### H CVPCRR #### [facility] [address] [place] [address] Dr. Carleen Underwood OSBR Risk 1 [place] [address] [facility] Comment on above: Performed By: #### H CVPCRR #### [facility] [address] [place] [address] Dr. Carleen Underwood PDF . Normal [facility] Comment on above: Performed By: #### H CVPCRR #### [facility] [address] [place] [address] Dr. Carleen Underwood Race Normal [facility] Comment on above: Performed By: #### H CVPCRR #### [facility] [address] [address] [address] Carleen Underwood Test Results: Negative Normal [facility] Comment on above: Performed By: #### H CVPCRR #### [facility] [address] [address] [address] Carleen Underwood US PREG ANATOMY SINGLEon [...] by: FOUZIA CALERO Date: 2022-03-19 17:04 Normal [facility] GLUCOSE - 1HRon 02-14-2022 Glucose [Mass/Vol] 107 mg/dL Critically high 74-106 T [facility] Comment on above: Performed By: #### H CVPCRR #### [facility] [address] [place] [address] Dr. Carleen Underwood HEP B SURFACE ANTIGEN SCREEN on 01-13-2022 HBsAg Screen Negative Normal Negative [facility] Comment on above: Performed By: #### H BSANS #### [facility] [address] [address] [address] Carleen Underwood HEPATITIS C VIRUS AB W/ REFL EX QUANTon 01-13-2022 HCV AB <0.1 Normal 0.0-0.9 [facility] Comment on above: Performed By: #### H CVPCRR #### [facility] [address] [place] [address] Dr. Carleen Underwood Interpretation: Comment Normal [facility] Comment on above: Result Comment: Nega tive Not infected with HCV, unless recent infection is suspected or other evidence exists to indicate HCV infection. Performed By: #### H CVPCRR #### [facility] [address] [address] [address] Carleen Underwood HIV 1 AND 2 WITH REFLEXon HIV Screen 4th Generation wRfx Non-Reactive Normal Non Reactive [facility] Comment on above: Result Comment: HIV Negative HIV-1/HIV-2 antibodies and HIV-1 p24 antigen were NOT detected. There is no laboratory evidence of HIV infection. Performed By: #### G LU1HR #### [facility] [address] [place] [address] Dr. Carleen Underwood RPR QUANTon 01-13-2022 Rapid Plasma Reagin, Quant Non-Reactive Normal NonRea<1:1 [facility] Comment on above: Result Comment: Plea se Note: This test does not meet current guidelines for screening and diagnosis of syphilis. This test is intended for following treatment response in patients being treated for syphilis infection. To screen for syphilis infection, a reflex cascade that includes both RPR and a treponema-specific assay should be utilized, such as Treponema pallidum (Syphilis) Screening [place] (540143) or Rapid Plasma Reagin (RPR) Test With Reflex to Quantitative RPR and Confirmatory Treponema pallidum Antibodies (572792). Performed By: #### H CVPCRR #### [facility] [address] [place] [address] Dr. Carleen Underwood RUBELLA AB IGGon 01-13-2022 Rubella Antibodies, IgG 4.86 index Normal Immune >0.99 [facility] Comment on above: Result Comment: Non- immune <0.90 Equivocal 0.90 - 0.99 Immune >0.99 Performed By: #### R UBIGG #### [facility] [address] [place] [address] Dr. Carleen Underwood CBC AUTO DIFFon 01-12-2022 BASO # 0.0 103/ul Normal 0.0-0.1 [facility] Comment on above: Performed By: #### C BC #### [facility] [address] [place] [address] Dr. Carleen Underwood Basophils/100 WBC (Bld) 0.4 % Normal 0.2-2.0 [facility] Comment on above: Performed By: #### C BC #### [facility] [address] [place] [address] Dr. Carleen Underwood EO # 0.1 103/ul Normal 0.0-0.7 [facility] Comment on above: Performed By: #### C BC #### [facility] [address] [place] [address] Dr. Carleen Underwood Eosinophils/100 WBC (Bld) 1.1 % Normal 0.9-7.0 [facility] Comment on above: Performed By: #### C BC #### [facility] [address] [place] [address] Dr. Carleen Underwood Erythrocyte distribution width (RBC) [Ratio] 14.5 % Normal 11.0-15.0 [facility] Comment on above: Performed By: #### C BC #### [facility] [address] [place] [address] Dr. Carleen Underwood Hematocrit (Bld) [Volume fraction] 35.8 % Critically low 36.0-48.0 [facility] Comment on above: Performed By: #### C BC #### [facility] [address] [place] [address] Dr. Carleen Underwood Hemoglobin (Bld) [Mass/Vol] 11.2 g/dL Critically low 12.0-16.0 [facility] Comment on above: Performed By: #### C BC #### [facility] [address] [place] [address] Dr. Carleen Underwood IG # 0.02 10e3/ul Normal 0.00-0.03 [facility] Comment on above: Performed By: #### C BC #### [facility] [address] [place] [address] Dr. Carleen Underwood IG % 0.4 % Normal 0.0-0.5 [facility] Comment on above: Performed By: #### C BC #### [facility] [address] [place] [address] Dr. Carleen Underwood LYMPH # 1.6 103/ul Normal 1.2-3.8 [facility] Comment on above: Performed By: #### C BC #### [facility] [address] [place] [address] Dr. Carleen Underwood Lymphocytes/100 WBC (Bld) 27.9 % Normal 20.5-60.0 [facility] Comment on above: Performed By: #### C BC #### [facility] [address] [place] [address] Dr. Carleen Underwood MANUAL DIFF REQ NO Normal [facility] Comment on above: Performed By: #### C BC #### [facility] [address] [place] [address] Dr. Carleen Underwood MCH (RBC) [Entitic mass] 26.1 pg Critically low 26.7-34.0 [facility] Comment on above: Performed By: #### C BC #### [facility] [address] [place] [address] Dr. Carleen Underwood MCHC (RBC) [Mass/Vol] 31.3 g/dL Normal 29.9-35.2 [facility] Comment on above: Performed By: #### C BC #### [facility] [address] [address] [address] Carleen Underwood MCV (RBC) [Entitic vol] 83.4 fL Normal 81.0-99.0 [facility] Comment on above: Performed By: #### C BC #### [facility] [address] [address] [address] Carleen Underwood MONO # 0.4 103/ul Normal 0.3-0.8 [facility] Comment on above: Performed By: #### C BC #### [facility] [address] [place] [address] Dr. Carleen Underwood Monocytes/100 WBC (Bld) 6.2 % Normal 1.7-12.0 [facility] Comment on above: Performed By: #### C BC #### [facility] [address] [place] [address] Dr. Carleen Underwood NEUT # 3.7 103/ul Normal 1.4-6.5 [facility] Comment on above: Performed By: #### C BC #### [facility] [address] [place] [address] Dr. Carleen Underwood Neutrophils/100 WBC (Bld) 64.0 % Normal 43.0-75.0 [facility] Comment on above: Performed By: #### C BC #### [facility] [address] [place] [address] Dr. Carleen Underwood Platelet mean volume (Bld) [Entitic vol] 10.3 fL Normal 9.5-13.5 [facility] Comment on above: Performed By: #### C BC #### [facility] [address] [place] [address] Dr. Carleen Underwood PLT 229 103/ul Normal 150-450 [facility] Comment on above: Performed By: #### C BC #### [facility] [address] [address] [address] Carleen Underwood RBC 4.29 106/ul Normal 4.20-5.40 [facility] Comment on above: Performed By: #### C BC #### [facility] [address] [place] [address] Dr. Carleen Underwood WBC 5.7 103/ul Normal 4.0-11.0 [facility] Comment on above: Performed By: #### C BC #### [facility] [address] [place] [address] Dr. Carleen Underwood CULTURE URINEon 01-12-2022 CULTURE URINE Culture Observations : LIGHT GROWTH OF MIXED GENITAL YULI. NO POTENTIAL PATHOGENS SEEN. Normal [facility] Comment on above: Performed By: #### U RCX #### [facility] [address] [place] [address] Dr. Carleen Underwood GLYCOHEMOGLOBIN A1Con 2021 ADA RECOMMENDATION SEE BELOW Normal [facility] Comment on above: Result Comment: ADA RECOMMENDED LIMIT 4.0 - 6.0 ADA THERAPEUTIC TARGET < 7.0 ACTION SUGGESTED > 7.0 Performed By: #### G LU1HR #### [facility] [address] [place] [address] Dr. Carleen Underwood Glucose [Mass/Vol] 100 mg/dL Normal [facility] Comment on above: Performed By: #### G LU1HR #### [facility] [address] [place] [address] Dr. Carleen Underwood HbA1c (Bld) [Mass fraction] 5.1 % Normal 4.5-6.2 [facility] Comment on above: Performed By: #### G LU1HR #### [facility] [address] [place] [address] Dr. Carleen Underwood EMILY BOX TEST PT SEND OUTo n 01-12-2022 SENT TO REF LAB 01/12/2022 Normal [facility] Comment on above: Performed By: #### H CVPCRR #### [facility] [address] [place] [address] Dr. Carleen Underwood TYPE AND SCREENon 01-12-2022 TYPE AND SCREEN Negative Normal [facility] Comment on above: Performed By: #### T NS #### [facility] [address] [place] [address] Dr. Carleen Underwood US PREG TVon 12-29-2021 [...] by: BRANDI ANN Date: 2021-12-29 16:07 Normal [facility] Coding Summary.on 02-12-2020 Coding Summary. 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 [...] Esquivel Date Saved: 02/12/2020 10:10 am Normal [facility] Physician Orderon 02-07-2020 Physician Order [id number]:[id number] Normal [facility] Vital Signs Date Time Vital Sign Value Performing Clinician Facility 07-15-2023 13:00-0500 Body height 170.81 cm Chery Aranda Other [facility] 07-15-2023 13:00-0500 Body mass index (BMI) [Ratio] 39.95 kg/m2 Chery Aranda Other [facility] 07-15-2023 13:00-0500 Body weight 116.58 kg Chery rAanda Other [facility] 07-15-2023 13:00-0500 Diastolic blood pressure 74 mm[Hg] Chery Aranda Other [facility] 07-15-2023 13:00-0500 Systolic blood pressure 107 mm[Hg] Chery Aranda Other [facility] 06-14-2023 13:30-0400 Body height 170.81 cm Chery Aranda Other [facility] 06-14-2023 13:30-0400 Body mass index (BMI) [Ratio] 39.42 kg/m2 Chery Aranda Other [facility] 06-14-2023 13:30-0400 Body weight 115.03 kg Chery Aranda Other [facility] 06-14-2023 13:30-0400 Diastolic blood pressure 72 mm[Hg] Chery Aranda Other [facility] 06-14-2023 13:30-0400 Systolic blood pressure 118 mm[Hg] Chery Aranda Other [facility] 05-16-2023 13:00-0400 Body height 170.81 cm Chery Aranda Other [facility] 05-16-2023 13:00-0400 Body mass index (BMI) [Ratio] 40.1 kg/m2 Chery Aranda Other [facility] 05-16-2023 13:00-0400 Body weight 117.03 kg Chery Aranda Other [facility] 05-16-2023 13:00-0400 Diastolic blood pressure 67 mm[Hg] Chery Aranda Other [facility] 05-16-2023 13:00-0400 Systolic blood pressure 102 mm[Hg] Chery Aranda Other [facility] 04-15-2023 13:00-0400 Body height 170.81 cm Chery Aranda Other [facility] 04-15-2023 13:00-0400 Body mass index (BMI) [Ratio] 41.35 kg/m2 Chery Aranda Other [facility] 04-15-2023 13:00-0400 Body weight 120.66 kg Chery Aranda Other [facility] 04-15-2023 13:00-0400 Diastolic blood pressure 71 mm[Hg] Chery Aranda Other [facility] 04-15-2023 13:00-0400 Systolic blood pressure 110 mm[Hg] Chery Aranda Other [facility] 03-22-2022 02:06-0400 Body weight 117.[address] BRANDI ANN [facility] Comment on above: Performed By: #### HCVPCRR #### [facility] [address] [place] [address] Dr. Carleen Underwood Encounters Encounter Date Encounter Type Care Provider Facility Start: 12-25-2023 End: 12-25-2023 ambulatory DINH AYDE Not Available Start: 12-11-2023 End: 12-11-2023 ambulatory DINH AYDE Not Available Start: 11-27-2023 End: 11-27-2023 ambulatory FRIEDA GENE Not Available Start: 11-13-2023 End: 11-13-2023 ambulatory DINH AYDE Not Available Start: 10-17-2023 End: 10-18-2023 ambulatory COLIN Quiñones [facility] Start: 10-16-2023 End: 10-16-2023 ambulatory DINH AYDE Not Available Start: 10-04-2023 Chart abstracting Chao Marmolejo MD Work Phone: [facility] Start: 09-18-2023 End: 09-18-2023 ambulatory FRIEDA GENE Not Available Start: 08-20-2023 End: 08-20-2023 ambulatory DINH AYDE Not Available Start: 07-26-2023 End: 07-26-2023 ambulatory DINH AYDE Not Available Start: 07-15-2023 End: 07-15-2023 ambulatory Chery Aranda Other [facility] Start: 07-15-2023 Office outpatient vi sit 10 minutes Chery Aranda [facility] Start: 06-14-2023 End: 06-14-2023 ambulatory Chery Aranda Other [facility] Start: 06-14-2023 Office outpatient vi sit 10 minutes Chery Aranda [facility] Start: 05-16-2023 End: 05-16-2023 ambulatory Chery Aranda Other [facility] Start: 05-16-2023 Office outpatient vi sit 10 minutes Chery Aranda [facility] Start: 04-15-2023 End: 04-15-2023 ambulatory Chery Aranda Other [facility] Start: 04-15-2023 Office outpatient ne w 45 minutes Chery Aranda [facility] Start: 07-31-2022 End: 07-31-[address] DINH MARROQUIN Facility: Start: 07-27-2022 End: 07-28-2022 Evaluation and management [...] Facility:[facility] Start: 04-17-2022 End: 04-18-[address] KI ROLLINS Facility:[facility] Start: 04-16-2022 End: 04-16-[address] [...] Detail Performing Clinician Start: 07-26-2023 Antibody screen Choa Powers MD Work Phone: Start: 07-26-2023 Basic [...] Start: 10-22-2023 End: 10-22-2023 Patient encounter procedure [facility] Start: 04-26-2023 Influenza vaccination Influenza Vacc ine [facility] Start: 2011 Screening for malign ant neoplasm of cervix Pap Smear [facility] Start: 2009 DTaP,Tdap and Td Vaccines (1 - Tdap) DTaP,Tdap and Td Vaccines (1 - Tdap) [facility] Start: 2008 Adult BMI Screening Adult BMI Screen ing [facility] Start: 2002 Depression Screening Depression Scre ening [facility] Start: 2002 Tobacco Screening Tobacco Screening [facility] Immunizations Immunization Date Immunization Notes Care Provider Fa cility 09-08-2019 influenza virus vaccine, unspecified formulation Chao Ling MD Work Phone: [facility] Payers Date Payer Category Payer Private Health Insurance [employer] A ETNA POS [id number] 2017-Present [phone] [address] [place] [address] [id number] 1990 Unknown [id number] 2.840.1.554252.3.579.2.5 93 1990 Unknown [id number] 2.840.1.501993.3.579.2.5 93 1990 Unknown [id number] 2.840.1.007497.3.579.2.5 93 1990 Unknown [id number] 2.16.840.1.369754.3.579.2.5 93 1990 Unknown [id number] 2.16.840.1.596757.3.579.2.5 93 1990 Unknown [id number] 2.16.840.1.272928.3.579.2.5 93 1990 Unknown [id number] 2.16.840.1.475626.3.579.2.5 93 1990 Unknown [id number] 2.16.840.1.973048.3.579.2.5 93 1990 Unknown [id number] 2.16.840.1.454497.3.579.2.5 93 1990 Unknown [id number] 2.16.840.1.241748.3.579.2.5 93 1990 Unknown [id number] 2.16.840.1.758534.3.579.2.5 93 1990 Unknown [id number] 2.16.840.1.595562.3.579.2.5 93 1990 Unknown [id number] 2.16.840.1.409026.3.579.2.5 93 1990 Unknown [id number] 2.16.840.1.641063.3.579.2.5 93 1990 Unknown [id number] 2.16.840.1.051719.3.579.2.5 93 1990 Unknown [id number] 2.16.840.1.650653.3.579.2.5 93 1990 Unknown [id number] 2.16.840.1.825455.3.579.2.5 93 1990 Unknown [id number] 2.16.840.1.043592.3.579.2.5 93 1990 Unknown [id number] 2.16.840.1.992454.3.579.2.1 259 1990 Unknown [id number] 2.16.840.1.358752.3.579.2.1 259 1990 Unknown [id number] 2.16.840.1.187306.3.579.2.1 259 1990 Unknown [id number] 2.16.840.1.770828.3.579.2.1 259 1990 Unknown [id number] 2.16.840.1.100877.3.579.2.1 259 1990 Unknown [id number] 2.16.840.1.372810.3.579.2.1 259 1990 Unknown [id number] 2.16.840.1.413982.3.579.2.1 259 1990 Unknown [id number] 2.16.840.1.107015.3.579.2.1 259 1959 Private Health Insurance [id number] 1959 Unknown [id number] Unknown [id number] 2.16.840.1.194601.3.579.2.5 93 Social History Date Type Detail Facility Unknown if ever smoked [facility] Other Start: 10-06-2020 End: 10-04-2023 Sex Assigned At [facility] Other Start: 09-11-2019 Tobacco smoking stat [facility] Never smoked tobacco [facility] Start: 09-11-2019 Tobacco use and exposure Smokeless tobacco non-user [facility] Start: 10-04-2023 Alcohol intake Ex-drinker (finding) [facility] Start: 10-06-2020 End: 10-04-2023 History of Social function [facility] Childcare Unknown [facility] Start: 05-30-2023 [facility] Start: 1990 Sex Assigned At Not on file P [facility] Evaluation note 07-15-2023 Note Date & Type Note Facility 07-15-2023 Evaluation note Encounter Date Diagnosis Assessment Notes Jun, First trimester (ICD-10 - Z34.91) Continued followup w Dr. Marroquin. No further adipex. [facility] Other Evaluation note 06-14-2023 Note Date & [...] index [BMI] 39.0-39.9, adult (ICD-10 - Z68.39) [facility] Other Evaluation note 05-16-2023 Note Date & [...] index [BMI] 40.0-44.9, adult (ICD-10 - Z68.41) [facility] Other Evaluation note 04-15-2023 Note Date & [...] index [BMI] 40.0-44.9, adult (ICD-10 - Z68.41) [facility] Other History general Narrative - Reported Note Date & Type Note Facility History general Narrative - Reported Type Surgical History T & A 2010 Surgical History Gallbladder 2013 [facility] Other History general Narrative - Reported Note Date & Type Note Facility History general Narrative - Reported Type Surgical History T & A 2010 Surgical History Gallbladder 2013 Hospitalization History see surgical hx [facility] Other History general Narrative - Reported Note [...] Gallbladder 2012 Hospitalization History see surgical hx [facility] Instructions Note Date & Type Note [...] section and content) DATE CREATED AUTHOR 03/11/2020 [place] [facility] DATE CREATED AUTHOR AUTHOR'S ORGANIZ ATION 08/04/2022 [facility] DATE CREATED AUTHOR AUTHOR'S ORGANIZ ATION 12/10/2023 [facility] DATE CREATED AUTHOR AUTHOR'S ORGANIZ ATION 12/27/2023 [facility] EPIC REASON FOR VISIT (unrecogniz ed section and content) ESTABLISH CARE1 month Follow up1 month Follow up1 month Follow up Care Teams (unrecognized sec tion and content) [employer] Relationship Specialty Start Date End Date Pola Osei, 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 [facility]. provides no warranty or guarantee of the accuracy or completeness of information in this document.
[2023-12-30 10:11] VITALS: BP 120/69; PULSE 66
== END 2023-12-30 11:03 | disposition home or self-care (01) ==
LOC: FBCO 07:00 → FBC 10:03
PROVIDERS: PCP Family Medicine; Visit Provider Obstetrics & Gynecology
DX: O36.5930 Maternal care for other known or suspected poor fetal growth, third trimester, not applicable or unspecified (principal)
CPT/HCPCS: 59025

== ENCOUNTER 2024-01-03 07:20 | Outpatient (OUT) | payer OTHER, SELFPAY ==
--- OUTSIDE RECORDS SUMMARY | 2024-01-03 07:34 | XMS_ITS | CCD ---
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 every twenty-four hours Phentermine HCl 37.5 MG 1 capsule Orally Once a day for 30 days Apr, Active Start: 04-15-2023 take [address] [facility] every twenty-four hours Phentermine HCl 37.5 MG 1 capsule Orally Once a day for 30 days Mar, Active [id number]-ccohv ac id 29 mg iron- 1 mg [...] 10-26-2023 [place] tp. B1 <1:10 Normal <1:10 [facility] Comment on above: Performed By: #### C MVG, LUPPRO, AT3A, PROCAC, PROSAC, CMVM, CMIS, TOXOG, TOXOM, HOCYS #### [facility] [address] [place] [address] Meter/Relay Technician: Tanvir Macias MD #### APTMUT, AF5MUT, AMTHFR, ACOXA9, APARVP, ACOXAB #### [facility] [address] [place], [place] [id number] Meter/Relay Technician: MD Tatum Santoyo. B2 1:20 Normal <1:10 [facility] Comment on above: Performed By: #### C MVG, LUPPRO, AT3A, PROCAC, PROSAC, CMVM, CMIS, TOXOG, TOXOM, HOCYS #### [facility] [address] [place] [address] Meter/Relay Technician: Tanvir Macias MD #### APTMUT, AF5MUT, AMTHFR, ACOXA9, APARVP, ACOXAB #### [facility] [address] [place], [place] [id number] Meter/Relay Technician: MD Tatum Santoyo. B3 1:10 Normal <1:10 [facility] Comment on above: Performed By: #### C MVG, LUPPRO, AT3A, PROCAC, PROSAC, CMVM, CMIS, TOXOG, TOXOM, HOCYS #### [facility] [address] [place] [address] Meter/Relay Technician: Tanvir Macias MD #### APTMUT, AF5MUT, AMTHFR, ACOXA9, APARVP, ACOXAB #### [facility] [address] [place], [place] [id number] Meter/Relay Technician: MD Tatum Santoyo B4 1:320 Abnormal <1:10 [facility] Comment on above: Performed By: #### C MVG, LUPPRO, AT3A, PROCAC, PROSAC, CMVM, CMIS, TOXOG, TOXOM, HOCYS #### [facility] [address] [place] [address] Meter/Relay Technician: Tanvir Macias MD #### APTMUT, AF5MUT, AMTHFR, ACOXA9, APARVP, ACOXAB #### [facility] [address] [place] [address] Meter/Relay Technician: MD Tatum Santoyo. B5 <1:10 Normal <1:10 [facility] Comment on above: Performed By: #### C MVG, LUPPRO, AT3A, PROCAC, PROSAC, CMVM, CMIS, TOXOG, TOXOM, HOCYS #### [address] [phone] Meter/Relay Technician: Tanvir Macias MD #### APTMUT, AF5MUT, AMTHFR, ACOXA9, APARVP, ACOXAB #### [address] [address] Meter/Relay Technician: MD Tatum Santoyo. B6 <1:10 Normal <1:10 [facility] Comment on above: Result Comment: (NOT E) INTERPRETIVE INFORMATION: Coxsackie B Virus Single positive antibody titers of greater than or equal to 1:80 may indicate past or current infection. Sero- conversion or an increase in titers between acute and convalescent sera of at least fourfold is considered strong evidence of current or recent infection. Performed By: [facility] [address] [place] [address] Employee Benefits Administrator: Nadeem Mcarthur MD, PhD CLIA Number: [id number] Performed By: #### C MVG, LUPPRO, AT3A, PROCAC, PROSAC, CMVM, CMIS, TOXOG, TOXOM, HOCYS #### [address] [phone] Meter/Relay Technician: Tanvir Macias MD #### APTMUT, AF5MUT, AMTHFR, ACOXA9, APARVP, ACOXAB #### [address] [phone] Meter/Relay Technician: Enrique Arthur MD Factor V Mutationon 10-22-19 24 F 5 SPECIMEN Whole Blood Normal [facility] Comment on above: Performed By: #### C MVG, LUPPRO, AT3A, PROCAC, PROSAC, CMVM, CMIS, TOXOG, TOXOM, HOCYS #### [facility] [address] [place] [address] Meter/Relay Technician: Tanvir Macias MD #### APTMUT, AF5MUT, AMTHFR, ACOXA9, APARVP, ACOXAB #### [facility] [address] [place] [address] Meter/Relay Technician: Enrique Arthur MD FACTOR 5 MUTATION Negative Normal [facility] Comment on above: Result Comment: (NOT E) Indication for testing: Assess genetic risk for thrombosis. NEGATIVE: The factor V Leiden variant, c.1601G>A; p.Urb000Wac, was not detected. This does not exclude [...] function in the F5 gene variant c.1601G>A (p.Xic781Rvq). Legacy nomenclature: R506Q (1691G>A) CLINICAL SENSITIVITY: 20-50 percent of individuals with an isolated VTE have the FVL variant. METHODOLOGY: Polymerase chain reaction and fluorescence monitoring. ANALYTICAL SENSITIVITY AND SPECIFICITY: 99 percent. LIMITATIONS: Diagnostic errors can occur due to rare sequence variations. F5 gene mutations, other than p.Orw518Unf, will not be detected. This test was developed and its performance characteristics determined by [facility]. It has not been cleared or approved by the [place] Food and Drug Administration. This test was performed in a CLIA certified laboratory and is intended for clinical purposes. Counseling and informed consent are recommended for genetic testing. Consent forms are available online. Performed By: [facility] [address] [place] [address] Employee Benefits Administrator: Nadeem Mcarthur MD, PhD CLIA Number: [id number] Performed By: #### C MVG, LUPPRO, AT3A, PROCAC, PROSAC, CMVM, CMIS, TOXOG, TOXOM, HOCYS #### [place] [address] Meter/Relay Technician: Tanvir Macias MD #### APTMUT, AF5MUT, AMTHFR, ACOXA9, APARVP, ACOXAB #### [place] [id number] Meter/Relay Technician: Enrique Arthur MD Coxsackie A9 Titeron 024 Coxsackie A9 Titer <1:8 Normal <1:8 [facility] Comment on above: Result Comment: (NOT E) INTERPRETIVE INFORMATION: Coxsackie A Serotype 9 Titer Single positive antibody titers of greater than 1:32 may indicate past or current infection. Seroconversion or an increase in titers between acute and convalescent sera of at least fourfold is considered strong evidence of current or recent infection. Performed By: [facility] [address] [place], [place] [id number] Employee Benefits Administrator: Nadeem Mcarthur MD, PhD CLIA Number: [id number] Performed By: #### C MVG, LUPPRO, AT3A, PROCAC, PROSAC, CMVM, CMIS, TOXOG, TOXOM, HOCYS #### [address] [address] Meter/Relay Technician: Tanvir Macias MD #### APTMUT, AF5MUT, AMTHFR, ACOXA9, APARVP, ACOXAB #### [facility] [address] [place] [address] Meter/Relay Technician: Enrique Arthur MD MTHFR Gene Mutationon 2023 MTHFR 1286 A>C Mut Negative Normal [facility] Comment on above: Performed By: #### C MVG, LUPPRO, AT3A, PROCAC, PROSAC, CMVM, CMIS, TOXOG, TOXOM, HOCYS #### [address] [address] Meter/Relay Technician: Tanvir Macias MD #### APTMUT, AF5MUT, AMTHFR, ACOXA9, APARVP, ACOXAB #### [facility] [address] [place], [place] [id number] Meter/Relay Technician: Enrique Arthur MD MTHFR 655C>T Mut Heterozygous Normal [facility] Comment on above: Performed By: #### C MVG, LUPPRO, AT3A, PROCAC, PROSAC, CMVM, CMIS, TOXOG, TOXOM, HOCYS #### [address] [address] Meter/Relay Technician: Tanvir Macias MD #### APTMUT, AF5MUT, AMTHFR, ACOXA9, APARVP, ACOXAB #### [facility] [address] [place], [place] [id number] Meter/Relay Technician: Enrique Arthur MD MTHFR Interpretation See Note Normal [facility] Comment on above: Result Comment: (NOT E) Indication for testing: Determine genetic contribution to hyperhomocysteinemia. Heterozygous MTHFR c.665C>T: One copy of the MTHFR variant c.665C>T (previously designated C677T) was detected; the c.1286A>C (previously designated W1261U) variant was not identified. The common variant [...] has an effect on cardiovascular disease. The [employer] Practice Guidelines indicate [...] a contributing factor to hyperhomocysteinemia. Variants Tested: c.665C>T(p.Wlq212Rhs) and c.1286A>C(p.Rtz443Esj). (legacy names C677T and Y4896H, respectively). Clinical Sensitivity: Undefined; hyperhomocysteinemia is caused [...] developed and its performance characteristics determined by [facility]. It has not been cleared or approved by the US Food and Drug Administration. This test was performed in a CLIA certified laboratory and is intended for clinical purposes. Counseling and informed consent are recommended for genetic testing. Consent forms are available online. Performed By: [facility] [address] [place], [place] [id number] Employee Benefits Administrator: Nadeem Mcarthur MD, PhD CLIA Number: [id number] Performed By: #### C MVG, LUPPRO, AT3A, PROCAC, PROSAC, CMVM, CMIS, TOXOG, TOXOM, HOCYS #### [facility] [address] [place] [address] Meter/Relay Technician: Tanvir Macias MD #### APTMUT, AF5MUT, AMTHFR, ACOXA9, APARVP, ACOXAB #### [facility] [address] [place] [address] Meter/Relay Technician: Enrique Arthur MD MTHFR SPECIMEN Whole Blood Normal [facility] Comment on above: Performed By: #### C MVG, LUPPRO, AT3A, PROCAC, PROSAC, CMVM, CMIS, TOXOG, TOXOM, HOCYS #### [facility] [address] [place] [address] Meter/Relay Technician: Tanvir Macias MD #### APTMUT, AF5MUT, AMTHFR, ACOXA9, APARVP, ACOXAB #### [facility] [address] [place], [place] [id number] Meter/Relay Technician: Enrique Arthur MD PT Mutation [id number] 10-21-19 24 PT [id number] VARIANT Negative Normal [facility] Comment on above: Result Comment: (NOT E) Indication for testing: Assess genetic risk for thrombosis. NEGATIVE: The Factor II, prothrombin W26686E mutation, was not detected. Other causes of [...] Quintana, Ph.D. BACKGROUND INFORMATION: Prothrombin (F2) c.*97G>A (K91867G) Pathogenic Variant CHARACTERISTICS: The Factor II, c.*97G>A (H17061Q) pathogenic variant is a common genetic risk [...] CAUSE: Homozygosity or heterozygosity for F2 c.*97G>A (L89492D). PATHOGENIC VARIANT TESTED: F2 c.*97G>A (R95185K). CLINICAL SENSITIVITY FOR VENOUS THROMBOSIS: Approximately 10 percent. METHODOLOGY: Polymerase chain reaction and fluorescence monitoring. ANALYTICAL SENSITIVITY AND SPECIFICITY: 99 percent. LIMITATIONS: Diagnostic errors can occur due to rare sequence variations. F2 gene variants, other than c.*97G>A (F61833A), will not be detected. This test was developed and its performance characteristics determined by [facility]. It has not been cleared or approved by the US Food and Drug Administration. This test was performed in a CLIA certified laboratory and is intended for clinical purposes. Counseling and informed consent are recommended for genetic testing. Consent forms are available online. Performed By: [facility] [address] [place] [address] Employee Benefits Administrator: Nadeem Mcarthur MD, PhD CLIA Number: [id number] Performed By: #### C MVG, LUPPRO, AT3A, PROCAC, PROSAC, CMVM, CMIS, TOXOG, TOXOM, HOCYS #### [address] [address] Meter/Relay Technician: Tanvir Macias MD #### APTMUT, AF5MUT, AMTHFR, ACOXA9, APARVP, ACOXAB #### [facility] [address] [place] [phone] Meter/Relay Technician: Enrique Arthur MD PT PCR SPECIMEN Whole Blood Normal [facility] Comment on above: Performed By: #### C MVG, LUPPRO, AT3A, PROCAC, PROSAC, CMVM, CMIS, TOXOG, TOXOM, HOCYS #### [facility] [address] [place], [place] [phone] Meter/Relay Technician: Tanvir Macias MD #### APTMUT, AF5MUT, AMTHFR, ACOXA9, APARVP, ACOXAB #### [facility] [address] [place] [address] Meter/Relay Technician: Enrique Arthur MD Parvovirus B19 Panelon 10-21 Parvovirus IgG B19 1.80 IV High <=0.90 [facility] Comment on above: Result Comment: [...] PROSAC, CMVM, CMIS, TOXOG, TOXOM, HOCYS #### [facility] [address] [place] [address] Meter/Relay Technician: Tanvir Macias MD #### APTMUT, AF5MUT, AMTHFR, ACOXA9, APARVP, ACOXAB #### [facility] [address] [place], [place] [id number] Meter/Relay Technician: Enrique Arthur MD Parvovirus IgM B19 0.12 IV Normal <=0.90 [facility] Comment on above: Result Comment: (NOT E) INTERPRETIVE INFORMATION: Parvovirus B19 Antibody, IgM EFFECTIVE 07/04/2023 REFERENCE INTERVAL CHANGE Due to reagent kit [employer] recall, an alternate kit has been validated and implemented by [facility]. The following Reference Interval applies to [...] levels of specific IgM antibodies. Performed By: [facility] [address] [place] [address] Employee Benefits Administrator: Nadeem Mcarthur MD, PhD CLIA Number: [id number] Performed By: #### C MVG, LUPPRO, AT3A, PROCAC, PROSAC, CMVM, CMIS, TOXOG, TOXOM, HOCYS #### [facility] [address] [place] [address] Meter/Relay Technician: Tanvir Macias MD #### APTMUT, AF5MUT, AMTHFR, ACOXA9, APARVP, ACOXAB #### [facility] [address] [place] [address] Meter/Relay Technician: Enrique Arthur MD Antithrombin III [place] 10-18 Antithrombin III Act 106 % Normal 83-122 [facility] Comment on above: Result Comment: Patients receiving Hirudin may have a falsely decreased Antitrombin III Activity. Performed By: #### C MVG, LUPPRO, AT3A, PROCAC, PROSAC, CMVM, CMIS, TOXOG, TOXOM, HOCYS #### [facility] [address] [place] [address] [phone] Meter/Relay Technician: Tanvir Macias MD #### APTMUT, AF5MUT, AMTHFR, ACOXA9, APARVP, ACOXAB #### [facility] [address] [place] [phone] Meter/Relay Technician: Enrique Arthur MD Lupus Anticoagulanton 2023 Anticardiolipin IgA 2.4 APL Normal 0.0-14.0 [facility] Comment on above: Result Comment: Reference Range: <14.0 Negative 14.0-20.0 Equivocal >20.0 Positive When results are Equivocal, it is recommended to retest after 4-6 weeks. Performed By: #### C MVG, LUPPRO, AT3A, PROCAC, PROSAC, CMVM, CMIS, TOXOG, TOXOM, HOCYS #### [address] [phone] Meter/Relay Technician: Tanvir Macias MD #### APTMUT, AF5MUT, AMTHFR, ACOXA9, APARVP, ACOXAB #### [facility] [address] [place] [address] Meter/Relay Technician: Enrique Arthur MD Anticardiolipin IgG 2.8 GPL Normal 0.0-10.0 [facility] Comment on above: Result Comment: Reference Range: <10.0 Negative 10.0-40.0 Equivocal >40.0 Positive Performed By: #### C MVG, LUPPRO, AT3A, PROCAC, PROSAC, CMVM, CMIS, TOXOG, TOXOM, HOCYS #### [address] [phone] Meter/Relay Technician: Tanvir Macias MD #### APTMUT, AF5MUT, AMTHFR, ACOXA9, APARVP, ACOXAB #### [facility] [address] [place] [address] Meter/Relay Technician: Enrique Arthur MD Anticardiolipin IgM <0.8 Normal 0.0-10.0 [facility] Comment on above: Result Comment: Reference Range: <10.0 Negative 10.0-40.0 Equivocal >40.0 Positive Performed By: #### C MVG, LUPPRO, AT3A, PROCAC, PROSAC, CMVM, CMIS, TOXOG, TOXOM, HOCYS #### [address] [phone] Meter/Relay Technician: Tanvir Macias MD #### APTMUT, AF5MUT, AMTHFR, ACOXA9, APARVP, ACOXAB #### [facility] [address] [place], [place] [id number] Meter/Relay Technician: Enrique Arthur MD Dilute [place] Viper Negative Normal [facility] Comment on above: Performed By: #### C MVG, LUPPRO, AT3A, PROCAC, PROSAC, CMVM, CMIS, TOXOG, TOXOM, HOCYS #### [facility] [address] [place] [address] Meter/Relay Technician: Tanvir Macias MD #### APTMUT, AF5MUT, AMTHFR, ACOXA9, APARVP, ACOXAB #### [facility] [address] [place], [place] [id number] Meter/Relay Technician: Enrique Arthur MD Miscellaneouson 10-18-2023 Send Out Report [facility] [id number] Normal [facility] Comment on above: Result Comment: UNIT Y Performed By: #### C MVG, LUPPRO, AT3A, PROCAC, PROSAC, CMVM, CMIS, TOXOG, TOXOM, HOCYS #### [address] [phone] Meter/Relay Technician: Tanvir Macias MD #### APTMUT, AF5MUT, AMTHFR, ACOXA9, APARVP, ACOXAB #### [facility] [address] [place] [address] Meter/Relay Technician: Enrique Arthur MD Protein C Activityon 024 Protein C Activity 91 % Normal >80 [facility] Comment on above: Result Comment: [...] PROSAC, CMVM, CMIS, TOXOG, TOXOM, HOCYS #### [facility] [address] [place] [address] [phone] Meter/Relay Technician: Tanvir Macias MD #### APTMUT, AF5MUT, AMTHFR, ACOXA9, APARVP, ACOXAB #### [address] [address] Meter/Relay Technician: Enrique Arthur MD Protein S Activityon 024 Protein S Activity 79 % Normal 59-130 [facility] Comment on above: Result Comment: [...] PROSAC, CMVM, CMIS, TOXOG, TOXOM, HOCYS #### [facility] [address] [place] [phone] Meter/Relay Technician: Tanvir Macias MD #### APTMUT, AF5MUT, AMTHFR, ACOXA9, APARVP, ACOXAB #### [address] [phone] Meter/Relay Technician: Enrique Arthur MD Toxoplasma Ab,IgGon 10-18-19 24 Toxoplasma Ab,IgG 1.2 IU/mL Normal [facility] Comment on above: Result Comment: REFERENCE RANGE: [...] CMVM, CMIS, TOXOG, TOXOM, HOCYS #### [facility] [address] [place] [address] Meter/Relay Technician: Tanvir Macias MD #### APTMUT, AF5MUT, AMTHFR, ACOXA9, APARVP, ACOXAB #### [address] [phone] Meter/Relay Technician: Enrique Arthur MD Toxoplasma Ab,IgMon 10-18-19 24 Toxoplasma Ab,IgM 0.56 Index Normal [facility] Comment on above: Result Comment: REFERENCE RANGE: <0.90 NON-REACTIVE 0.90 TO 0.99 INDETERMINANT >=1.00 REACTIVE Performed By: #### C MVG, LUPPRO, AT3A, PROCAC, PROSAC, CMVM, CMIS, TOXOG, TOXOM, HOCYS #### [facility] [address] [place] [phone] Meter/Relay Technician: Tanvir Macias MD #### APTMUT, AF5MUT, AMTHFR, ACOXA9, APARVP, ACOXAB #### [facility] [address] [place] [address] Meter/Relay Technician: Enrique Arthur MD CMV Ab,IgGon 10-17-2023 CMV Ab,IgG 523.0 High <0.5 [facility] Comment on above: Result Comment: Reference [...] PROSAC, CMVM, CMIS, TOXOG, TOXOM, HOCYS #### [address] [address] Meter/Relay Technician: Tanvir Macias MD #### APTMUT, AF5MUT, AMTHFR, ACOXA9, APARVP, ACOXAB #### [facility] [address] [place] [address] Meter/Relay Technician: Enrique Arthur MD CMV Ab,IgMon 10-17-2023 CMV Ab,IgM 0.2 Normal <0.7 [facility] Comment on above: Result Comment: Reference [...] PROSAC, CMVM, CMIS, TOXOG, TOXOM, HOCYS #### [facility] [address] [place] [address] Meter/Relay Technician: Tanvir Macias MD #### APTMUT, AF5MUT, AMTHFR, ACOXA9, APARVP, ACOXAB #### [facility] [address] [place] [address] Meter/Relay Technician: Enrique Arthur MD Homocysteineon 10-17-2023 Homocysteine 5.7 umol/L Normal <15.0 [facility] Comment on above: Performed By: #### C MVG, LUPPRO, AT3A, PROCAC, PROSAC, CMVM, CMIS, TOXOG, TOXOM, HOCYS #### [address] [address] Meter/Relay Technician: Tanvir Macias MD #### APTMUT, AF5MUT, AMTHFR, ACOXA9, APARVP, ACOXAB #### [facility] [address] [place] [address] Meter/Relay Technician: Enrique Arthur MD Lupus Anticoagulanton 2023 aPTT Coag (Bld) [Time] 27.6 s Normal 23.0-36.5 [facility] Comment on above: Result Comment: IV Heparin Therapy Range: 66.0-92.0 sec Performed By: #### C MVG, LUPPRO, AT3A, PROCAC, PROSAC, CMVM, CMIS, TOXOG, TOXOM, HOCYS #### [address] [address] Meter/Relay Technician: Tanvir Macias MD #### APTMUT, AF5MUT, AMTHFR, ACOXA9, APARVP, ACOXAB #### [facility] [address] [place] [address] Meter/Relay Technician: Enrique Arthur MD INR Coag (PPP) [Relative time] 1.0 {INR} Normal [facility] Comment on above: Result Comment: Therapeutic Range: Moderate Anticoagulant Intensity: INR = 2.0-3.0 High Anticoagulant Intensity: INR = 2.5-3.5 Performed By: #### C MVG, LUPPRO, AT3A, PROCAC, PROSAC, CMVM, CMIS, TOXOG, TOXOM, HOCYS #### [facility] [address] [place] [address] [phone] Meter/Relay Technician: Tanvir Macias MD #### APTMUT, AF5MUT, AMTHFR, ACOXA9, APARVP, ACOXAB #### [facility] [address] [place] [address] Meter/Relay Technician: Enrique Arthur MD PT Coag (PPP) [Time] 13.5 s Normal 11.7-14.9 [facility] Comment on above: Performed By: #### C MVG, LUPPRO, AT3A, PROCAC, PROSAC, CMVM, CMIS, TOXOG, TOXOM, HOCYS #### [facility] [address] [place] [address] Meter/Relay Technician: Tanvir Macias MD #### APTMUT, AF5MUT, AMTHFR, ACOXA9, APARVP, ACOXAB #### [facility] [address] [place] [address] Meter/Relay Technician: Enrique Arthur MD Basic Metabolic Panelon Glucose [Mass/Vol] 97 mg/dL [facility] CBC without diffOrdered By: Mayra Victoria on 07-26-2023 Hematocrit (Bld) [Volume fraction] 34.8 % [facility] Hemoglobin (Bld) [Mass/Vol] 11.3 g/dL [facility] Platelets (Bld) [#/Vol] 292 10*3/uL [facility] Rbc Mcv (Fl) By Automated Count 83.5 [facility] HIV 1&2 AB/AG Screen (P24 AG )on 07-26-2023 HIV 1&2 AB/AG Non-Reactive [facility] Hemoglobin A1con 07-26-2023 HbA1c (Bld) [Mass fraction] 5.0 % 4.0 - 6.0 % [facility] Hepatitis B surface antigeno n 07-26-2023 Hepatitis B Surface Antigen Negative [facility] No Panel InformationOrdered By: Mayra Victoria on 07-26-2023 [facility] Rubella IGG immune statuson 07-26-2023 Rubella immune IgG 5.26 [facility] Syphilis Total(Unknown Syphi lis Status)on 07-26-2023 Syphilis Non-Reactive [facility] TSHon 07-26-2023 TSH Qn 1.99 m[IU]/L [facility] Type and screenon 07-26-2023 Abo/Rh(D) Positive [facility] CBC AUTO DIFFon 07-28-2022 BASO # 0.0 103/ul Normal 0.0-0.1 [facility] Comment on above: Performed By: #### H CVPCRR #### [facility] [address] [place] [address] [address] Carleen Underwood Basophils/100 WBC (Bld) 0.3 % Normal 0.2-2.0 [facility] Comment on above: Performed By: #### H CVPCRR #### [facility] [address] [place] [address] Dr. Carleen Underwood EO # 0.2 103/ul Normal 0.0-0.7 [facility] Comment on above: Performed By: #### H CVPCRR #### [facility] [address] [place] [address] [address] Carleen Underwood Eosinophils/100 WBC (Bld) 1.5 % Normal 0.9-7.0 [facility] Comment on above: Performed By: #### H CVPCRR #### [facility] [address] [place] [address] Dr. Carleen Underwood Erythrocyte distribution width (RBC) [Ratio] 14.9 % Normal 11.0-15.0 [facility] Comment on above: Performed By: #### H CVPCRR #### [facility] [address] [place] [address] [address] Carleen Underwood Hematocrit (Bld) [Volume fraction] 30.7 % Critically low 36.0-48.0 [facility] Comment on above: Performed By: #### H CVPCRR #### [facility] [address] [place] [address] Dr. Carleen Underwood Hemoglobin (Bld) [Mass/Vol] 9.4 g/dL Critically low 12.0-16.0 [facility] Comment on above: Performed By: #### H CVPCRR #### [facility] [address] [place] [address] Dr. Carleen Underwood IG # 0.07 10e3/ul Critically high 0.00-0.03 [facility] Comment on above: Performed By: #### H CVPCRR #### [facility] [address] [place] [address] Dr. Carleen Underwood IG % 0.6 % Critically high 0.0-0.5 [facility] [facility] Comment on above: Performed By: #### H CVPCRR #### [facility] [address] [place] [address] Dr. Carleen Underwood LYMPH # 2.7 103/ul Normal 1.2-3.8 [facility] Comment on above: Performed By: #### H CVPCRR #### [facility] [address] [place] [address] Dr. Carleen Underwood Lymphocytes/100 WBC (Bld) 24.1 % Normal 20.5-60.0 [facility] Comment on above: Performed By: #### H CVPCRR #### [facility] [address] [place] [address] Dr. Carleen Underwood MANUAL DIFF REQ NO Normal [facility] Comment on above: Performed By: #### H CVPCRR #### [facility] [address] [place] [address] Dr. Carleen Underwood MCH (RBC) [Entitic mass] 23.3 pg Critically low 26.7-34.0 [facility] Comment on above: Performed By: #### H CVPCRR #### [facility] [address] [address] [address] Carleen Underwood MCHC (RBC) [Mass/Vol] 30.6 g/dL Normal 29.9-35.2 [facility] Comment on above: Performed By: #### H CVPCRR #### [facility] [address] [place] [address] Dr. Carleen Underwood MCV (RBC) [Entitic vol] 76.2 fL Critically low 81.0-99.0 [facility] Comment on above: Performed By: #### H CVPCRR #### [facility] [address] [place] [address] Dr. Carleen Underwood MONO # 0.7 103/ul Normal 0.3-0.8 [facility] Comment on above: Performed By: #### H CVPCRR #### [facility] [address] [place] [address] Dr. Carleen Underwood Monocytes/100 WBC (Bld) 5.8 % Normal 1.7-12.0 [facility] Comment on above: Performed By: #### H CVPCRR #### [facility] [address] [place] [address] Dr. Carleen Underwood NEUT # 7.6 103/ul Critically high 1.4-6.5 [facility] Comment on above: Performed By: #### H CVPCRR #### [facility] [address] [place] [address] Dr. Carleen Underwood Neutrophils/100 WBC (Bld) 67.7 % Normal 43.0-75.0 [facility] Comment on above: Performed By: #### H CVPCRR #### [facility] [address] [address] [address] Carleen Underwood Platelet mean volume (Bld) [Entitic vol] 11.1 fL Normal 9.5-13.5 [facility] Comment on above: Performed By: #### H CVPCRR #### [facility] [address] [address] [address] Carleen Underwood PLT 242 103/ul Normal 150-450 [facility] Comment on above: Performed By: #### H CVPCRR #### [facility] [address] [place] [address] Dr. Carleen Underwood RBC 4.03 106/ul Critically low 4.20-5.40 [facility] Comment on above: Performed By: #### H CVPCRR #### [facility] [address] [place] [address] Dr. Carleen Underwood WBC 11.2 103/ul Critically high 4.0-11.0 [facility] Comment on above: Performed By: #### H CVPCRR #### [facility] [address] [place] [address] Dr. Carleen Underwood CBC AUTO DIFFon 07-27-2022 BASO # 0.0 103/ul Normal 0.0-0.1 [facility] Comment on above: Performed By: #### G LU1HR #### [facility] [address] [place] [address] Dr. Carleen Underwood Basophils/100 WBC (Bld) 0.5 % Normal 0.2-2.0 [facility] Comment on above: Performed By: #### G LU1HR #### [facility] [address] [place] [address] Dr. Carleen Underwood EO # 0.1 103/ul Normal 0.0-0.7 [facility] Comment on above: Performed By: #### G LU1HR #### [facility] [address] [place] [address] Dr. Carleen Underwood Eosinophils/100 WBC (Bld) 1.2 % Normal 0.9-7.0 [facility] Comment on above: Performed By: #### G LU1HR #### [facility] [address] [place] [address] Dr. Carleen Underwood Erythrocyte distribution width (RBC) [Ratio] 14.9 % Normal 11.0-15.0 [facility] Comment on above: Performed By: #### G LU1HR #### [facility] [address] [place] [address] Dr. Carleen Underwood Hematocrit (Bld) [Volume fraction] 29.6 % Critically low 36.0-48.0 [facility] Comment on above: Performed By: #### G LU1HR #### [facility] [address] [place] [address] Dr. Carleen Underwood Hemoglobin (Bld) [Mass/Vol] 9.3 g/dL Critically low 12.0-16.0 [facility] Comment on above: Performed By: #### G LU1HR #### [facility] [address] [place] [address] Dr. Carleen Underwood IG # 0.04 10e3/ul Critically high 0.00-0.03 [facility] Comment on above: Performed By: #### G LU1HR #### [facility] [address] [place] [address] Dr. Carleen Underwood IG % 0.5 % Normal 0.0-0.5 [facility] Comment on above: Performed By: #### G LU1HR #### [facility] [address] [place] [address] Dr. Carleen Underwood LYMPH # 2.1 103/ul Normal 1.2-3.8 [facility] Comment on above: Performed By: #### G LU1HR #### [facility] [address] [place] [address] Dr. Carleen Underwood Lymphocytes/100 WBC (Bld) 25.5 % Normal 20.5-60.0 [facility] Comment on above: Performed By: #### G LU1HR #### [facility] [address] [place] [address] Dr. Carleen Underwood MANUAL DIFF REQ NO Normal [facility] Comment on above: Performed By: #### G LU1HR #### [facility] [address] [place] [address] Dr. Carleen Underwood MCH (RBC) [Entitic mass] 23.2 pg Critically low 26.7-34.0 [facility] Comment on above: Performed By: #### G LU1HR #### [facility] [address] [place] [address] Dr. Carleen Underwood MCHC (RBC) [Mass/Vol] 31.4 g/dL Normal 29.9-35.2 [facility] Comment on above: Performed By: #### G LU1HR #### [facility] [address] [place] [address] Dr. Carleen Underwood MCV (RBC) [Entitic vol] 73.8 fL Critically low 81.0-99.0 [facility] Comment on above: Performed By: #### G LU1HR #### [facility] [address] [place] [address] Dr. Carleen Underwood MONO # 0.5 103/ul Normal 0.3-0.8 [facility] Comment on above: Performed By: #### G LU1HR #### [facility] [address] [place] [address] Dr. Carleen Underwood Monocytes/100 WBC (Bld) 6.2 % Normal 1.7-12.0 [facility] Comment on above: Performed By: #### G LU1HR #### [facility] [address] [place] [address] Dr. Carleen Underwood NEUT # 5.4 103/ul Normal 1.4-6.5 [facility] Comment on above: Performed By: #### G LU1HR #### [facility] [address] [place] [address] Dr. Carleen Underwood Neutrophils/100 WBC (Bld) 66.1 % Normal 43.0-75.0 [facility] Comment on above: Performed By: #### G LU1HR #### [facility] [address] [place] [address] Dr. Carleen Underwood Platelet mean volume (Bld) [Entitic vol] 11.3 fL Normal 9.5-13.5 [facility] Comment on above: Performed By: #### G LU1HR #### [facility] [address] [place] [address] Dr. Carleen Underwood PLT 238 103/ul Normal 150-450 [facility] Comment on above: Performed By: #### G LU1HR #### [facility] [address] [place] [address] Dr. Carleen Underwood RBC 4.01 106/ul Critically low 4.20-5.40 [facility] Comment on above: Performed By: #### G LU1HR #### [facility] [address] [place] [address] Dr. Carleen Underwood WBC 8.2 103/ul Normal 4.0-11.0 [facility] Comment on above: Performed By: #### G LU1HR #### [facility] [address] [place] [address] Dr. Carleen Underwood Covid-19 PCR ([facility])on SARS-CoV-2 (COVID-19) RNA HUY+probe Ql (Unsp spec) Not detected Normal NOT DETECTED [facility] Comment on above: Result Comment: When [...] for this test is supported by the Welcome Hostess of Health and Human Service's declaration that [...] used). Performed By: #### H CVPCRR #### [facility] [address] [place] [address] Dr. Carleen Underwood DRUG SCREEN RAPID (URINE)on 07-27-2022 AMP Negative Normal NEGATIVE [facility] Comment on above: Performed By: #### G TT3P #### [facility] [address] [place] [address] Dr. Carleen Underwood BAR Negative Normal NEGATIVE [facility] Comment on above: Performed By: #### G TT3P #### [facility] [address] [place] [address] Dr. Carleen Underwood BUP Negative Normal NEGATIVE [facility] Comment on above: Performed By: #### G TT3P #### [facility] [address] [place] [address] Dr. Carleen Underwood BZO Negative Normal NEGATIVE [facility] Comment on above: Performed By: #### G TT3P #### [facility] [address] [place] [address] Dr. Carleen Underwood EMIGDIO Negative Normal NEGATIVE [facility] Comment on above: Performed By: #### G TT3P #### [facility] [address] [place] [address] Dr. Carleen Underwood CUT-OFFS SEE BELOW Normal [facility] Comment on above: Result Comment: AMP [...] ng/mL Performed By: #### G TT3P #### [facility] [address] [place] [address] Dr. Carleen Underwood DRUG CUT HEADER DRUG CLASS TEST SYST EM CUT-OFF CONCENTRATIONS ARE FOLLOWS: Normal [facility] Comment on above: Performed By: #### G TT3P #### [facility] [address] [place] [address] Dr. Carleen Underwood mAMP Negative Normal NEGATIVE [facility] Comment on above: Performed By: #### G TT3P #### [facility] [address] [place] [address] Dr. Carleen Underwood MTD Negative Normal NEGATIVE [facility] Comment on above: Performed By: #### G TT3P #### [facility] [address] [place] [address] Dr. Carleen Underwood OPI Negative Normal NEGATIVE [facility] Comment on above: Performed By: #### G TT3P #### [facility] [address] [place] [address] Dr. Carleen Underwood OXY Negative Normal NEGATIVE [facility] Comment on above: Performed By: #### G TT3P #### [facility] [address] [place] [address] Dr. Carleen Underwood PCP Negative Normal NEGATIVE [facility] Comment on above: Performed By: #### G TT3P #### [facility] [address] [place] [address] Dr. Carleen Underwood PPX Negative Normal NEGATIVE [facility] Comment on above: Performed By: #### G TT3P #### [facility] [address] [place] [address] Dr. Carleen Underwood TCA Negative Normal NEGATIVE [facility] Comment on above: Performed By: #### G TT3P #### [facility] [address] [place] [address] Dr. Carleen Underwood THC Negative Normal NEGATIVE [facility] Comment on above: Performed By: #### G TT3P #### [facility] [address] [place] [address] Dr. Carleen Underwood TYPE AND SCREENon 07-27-2022 TYPE AND SCREEN Negative Normal [facility] Comment on above: Performed By: #### G TT3P #### [facility] [address] [place] [address] Dr. Carleen Underwood US PREG AMNIOTIC FLUID [...] FOUZIA CALERO Date: 2022-07-12 16:24 Normal [facility] US PREG BIOPHY W NON STRESSo [...] BRANDI ANN Date: 2022-07-09 16:35 Normal [facility] US PREG BIOPHY W NON STRESSo [...] FOUZIA CALERO Date: 2022-07-06 17:28 Normal [facility] GROUP B STREP CULTUREon 06-26 S. agalactiae Ag Ql (Unsp spec) Culture Observations: NEGATIVE FOR GROUP B STREPTOCOCCUS. Normal [facility] Comment on above: Performed By: #### G TT3P #### [facility] [address] [place] [address] Dr. Carleen Underwood US PREG GROWTHon 07-05-2022 [...] Marroquin was notified of these findings by mathematics academic chair at time of imaging. 3. Biparietal diameter is at 8th percentile. Electronically authenticated by: FOUZIA CALERO Date: 2022-07-05 16:58 Normal [facility] US PREG GROWTHon 06-11-2022 US PREG [...] FOUZIA CALERO Date: 2022-06-11 16:22 Normal [facility] US PREG INCOMPLETE ANATOMYon 06-11-2022 US [...] FOUZIA CALERO Date: 2022-06-11 16:20 Normal [facility] US PREG INCOMPLETE ANATOMYon 05-14-2022 US [...] FOUZIA CALERO Date: 2022-05-14 17:15 Normal [facility] GTT 3 HR PREGon 04-24-2022 Glucose [Mass/Vol] 91 mg/dL Normal 74-106 [facility] Comment on above: Performed By: #### G TT3P #### [facility] [address] [address] [address] Carleen Underwood Glucose [Mass/Vol] 141 mg/dL Normal [facility] Comment on above: Performed By: #### G TT3P #### [facility] [address] [address] [address] Carleen Underwood Glucose [Mass/Vol] 103 mg/dL Normal [facility] Comment on above: Performed By: #### G TT3P #### [facility] [address] [address] [address] Carleen Underwood Glucose [Mass/Vol] 75 mg/dL Normal [facility] Comment on above: Performed By: #### G TT3P #### [facility] [address] [address] [address] Calreen Underwood US PREG INCOMPLETE ANATOMYon 04-23-2022 US [...] cervical os Normal ventricular outflow tracts Normal [facility] PAP ACOG PANEL 2: 30 to 65on 04-20-2022 . . Normal [facility] Comment on above: Result Comment: Perf ormed at: WB Performed By: #### [id number] #### [facility] [address] [address] [address] Carleen Underwood Age Gdln ACOG Testing [facility] Comment on above: Performed By: #### [id number] #### [facility] [address] [address] [address] Carleen Underwood DIAGNOSIS: Comment Normal [facility] Comment on above: Result Comment: NEGA TIVE FOR INTRAEPITHELIAL LESION OR MALIGNANCY. Performed at: WB Performed By: #### [id number] #### [facility] [address] [address] [address] Carleen Underwood HPV Aptima Negative Normal Negative [facility] Comment on above: Result Comment: This nucleic acid amplification test detects fourteen high-risk HPV types (16,18,31,33,35,39,45,51,52,56,58,59,66,68) without differentiation. Performed at: =G Performed By: #### [id number] #### [facility] [address] [address] [address] Carleen Underwood Methodology: Comment Normal [facility] Comment on above: Result Comment: This liquid based ThinPrep(R) pap test was screened with the use of an image guided system. Performed at: WB Performed By: #### [id number] #### [facility] [address] [address] [address] Carleen Underwood Note: Comment Normal [facility] Comment on above: Result Comment: The Pap smear is a screening test designed to aid in the detection of premalignant and malignant conditions of the uterine cervix. It is not a diagnostic procedure and should not be used as the sole means of detecting cervical cancer. Both false-positive and false-negative reports do occur. . Performed at: WB Performed By: #### [id number] #### [facility] [address] [place] [address] Dr. Carleen Underwood Performed by: Comment Normal [facility] Comment on above: Result Comment: Carol Aguilar, Director Of Public Health Performed at: WB Performed By: #### [id number] #### [facility] [address] [place] [address] Dr. Carleen Underwood Specimen adequacy: Comment Normal [facility] Comment on above: Result Comment: Sati sfactory for evaluation. No endocervical component is identified. Performed at: WB Performed By: #### [id number] #### [facility] [address] [place] [address] Dr. Carleen Underwood CHLAMYDIA/GONOCOCCUS HUY (SW AB/URINE/PAPon 04-19-2022 Chlamydia trachomatis, HUY Negative Normal Negative [facility] Comment on above: Performed By: #### H CVPCRR #### [facility] [address] [place] [address] Dr. Carleen Underwood Neisseria gonorrhoeae, HUY Negative Normal Negative [facility] Comment on above: Performed By: #### H CVPCRR #### [facility] [address] [place] [address] Dr. Carleen Underwood VAGINITIS/VAGINOSIS DNA PROB True 04-19-2022 Priya species Negative Normal Negative [facility] Comment on above: Performed By: #### G LU1HR #### [facility] [address] [place] [address] Dr. Carleen Underwood Gardnerella vaginalis Negative Normal Negative [facility] Comment on above: Performed By: #### G LU1HR #### [facility] [address] [place] [address] Dr. Carleen Underwood Trichomonas vaginalis Negative Normal Negative [facility] Comment on above: Performed By: #### G LU1HR #### [facility] [address] [place] [address] Dr. Carleen Underwood GLUCOSE - 1HRon 04-17-2022 Glucose [Mass/Vol] 150 mg/dL Critically high 74-106 [facility] Comment on above: Performed By: #### G LU1HR #### [facility] [address] [place] [address] Dr. Carleen Underwood HEMOGRAM AND PLATELon 2021 Hematocrit (Bld) [Volume fraction] 31.9 % Critically low 36.0-48.0 [facility] Comment on above: Performed By: #### H H #### [facility] [address] [place] [address] Dr. Carleen Underwood Hemoglobin (Bld) [Mass/Vol] 10.3 g/dL Critically low 12.0-16.0 [facility] Comment on above: Performed By: #### H H #### [facility] [address] [place] [address] Dr. Carleen Underwood MCH (RBC) [Entitic mass] 26.6 pg Critically low 26.7-34.0 [facility] Comment on above: Performed By: #### H H #### [facility] [address] [place] [address] Dr. Carleen Underwood MCHC (RBC) [Mass/Vol] 32.3 g/dL Normal 29.9-35.2 [facility] Comment on above: Performed By: #### H H #### [facility] [address] [place] [address] Dr. Carleen Underwood MCV (RBC) [Entitic vol] 82.4 fL Normal 81.0-99.0 [facility] Comment on above: Performed By: #### H H #### [facility] [address] [place] [address] Dr. Carleen Underwood PLT 233 103/ul Normal 150-450 [facility] Comment on above: Performed By: #### H H #### [facility] [address] [place] [address] Dr. Carleen Underwood RBC 3.87 106/ul Critically low 4.20-5.40 [facility] Comment on above: Performed By: #### H H #### [facility] [address] [address] [address] Carleen Underwood WBC 8.5 103/ul Normal 4.0-11.0 [facility] Comment on above: Performed By: #### H H #### [facility] [address] [address] [address] Carleen Underwood AFP MATERNAL FOR SPINA BIFID Aon 03-22-2022 AFP MoM 1.08 Normal [facility] Comment on above: Performed By: #### H CVPCRR #### [facility] [address] [address] [address] Carleen Underwood AFP Value 43.1 ng/mL Normal [facility] Comment on above: Performed By: #### H CVPCRR #### [facility] [address] [address] [address] Carleen Underwood AFP, Serum for Spina Bifida Report Normal [facility] Comment on above: Performed By: #### H CVPCRR #### [facility] [address] [address] [address] Carleen Underwood Comment Comment Normal [facility] Comment on above: Result Comment: Re Quick, Ph.D., [facility] Director . References: Available Upon Request. . Multiples Of Median Cutoffs For AFP Elevations [place] 2.5 Black 2.8 IDD 2.0 Twins 4.5 Abbreviation Definitions IDD - Insulin Dep Diabetes OSBR - Open Spina Bifida Risk . For further inquiries contact [employer] [facility] at [phone]. . This test was developed and its performance characteristics determined by [employer]. It has not been cleared or approved by the Food and Drug Administration. Performed By: #### H CVPCRR #### [facility] [address] [place] [address] Dr. Carleen Underwood Gest Age Collection Date 19.4 weeks Normal [facility] Comment on above: Performed By: #### H CVPCRR #### [facility] [address] [place] [address] Dr. Carleen Underwood Gestat, Age Based on LMP Normal [facility] Comment on above: Result Comment: Reca lculations are not recommended when gestational dating by LMP and ultrasound are within 10 days. Performed By: #### H CVPCRR #### [facility] [address] [address] [address] Carleen Underwood Insulin Dep Diabetes No Normal [facility] Comment on above: Performed By: #### H CVPCRR #### [facility] [address] [address] [address] Carleen Underwood Interpretation Comment Normal [facility] Comment on above: Result Comment: Inte [...] Customer Services to discuss available options. The [employer] recommends amniocentesis be offered to women age 35 and older. Performed By: #### H CVPCRR #### [facility] [address] [place] [address] Dr. Carleen Underwood [age] [facility] Comment on above: Performed By: #### H CVPCRR #### [facility] [address] [place] [address] Dr. Carleen Underwood Multiple Gestation No Normal [facility] Comment on above: Performed By: #### H CVPCRR #### [facility] [address] [place] [address] Dr. Carleen Underwood OSBR Risk 1 [place] [address] [facility] Comment on above: Performed By: #### H CVPCRR #### [facility] [address] [place] [address] Dr. Carleen Underwood PDF . Normal [facility] Comment on above: Performed By: #### H CVPCRR #### [facility] [address] [place] [address] Dr. Carleen Underwood Race Normal [facility] Comment on above: Performed By: #### H CVPCRR #### [facility] [address] [address] [address] Carleen Underwood Test Results: Negative Normal [facility] Comment on above: Performed By: #### H CVPCRR #### [facility] Laboratory [address] [address] [address] Carleen Underwood US PREG ANATOMY SINGLEon [...] by: FOUZIA CALERO Date: 2022-03-19 17:04 Normal [facility] GLUCOSE - 1HRon 02-14-2022 Glucose [Mass/Vol] 107 mg/dL Critically high 74-106 T [facility] Comment on above: Performed By: #### H CVPCRR #### [facility] [address] [place] [address] Dr. Carleen Underwood HEP B SURFACE ANTIGEN SCREEN on 01-13-2022 HBsAg Screen Negative Normal Negative [facility] Comment on above: Performed By: #### H BSANS #### [facility] [address] [address] [address] Carleen Underwood HEPATITIS C VIRUS AB W/ REFL EX QUANTon 01-13-2022 HCV AB <0.1 Normal 0.0-0.9 [facility] Comment on above: Performed By: #### H CVPCRR #### [facility] [address] [place] [address] Dr. Carleen Underwood Interpretation: Comment Normal [facility] Comment on above: Result Comment: Nega tive Not infected with HCV, unless recent infection is suspected or other evidence exists to indicate HCV infection. Performed By: #### H CVPCRR #### [facility] [address] [address] [address] Carleen Underwood HIV 1 AND 2 WITH REFLEXon HIV Screen 4th Generation wRfx Non-Reactive Normal Non Reactive [facility] Comment on above: Result Comment: HIV Negative HIV-1/HIV-2 antibodies and HIV-1 p24 antigen were NOT detected. There is no laboratory evidence of HIV infection. Performed By: #### G LU1HR #### [facility] [address] [place] [address] Dr. Carleen Underwood RPR QUANTon 01-13-2022 Rapid Plasma Reagin, Quant Non-Reactive Normal NonRea<1:1 [facility] Comment on above: Result Comment: Plea se Note: This test does not meet current guidelines for screening and diagnosis of syphilis. This test is intended for following treatment response in patients being treated for syphilis infection. To screen for syphilis infection, a reflex cascade that includes both RPR and a treponema-specific assay should be utilized, such as Treponema pallidum (Syphilis) Screening [place] ([id number]) or Rapid Plasma Reagin (RPR) Test With Reflex to Quantitative RPR and Confirmatory Treponema pallidum Antibodies ([id number]). Performed By: #### H CVPCRR #### [facility] [address] [place] [address] Dr. Carleen Underwood RUBELLA AB IGGon 01-13-2022 Rubella Antibodies, IgG 4.86 index Normal Immune >0.99 [facility] Comment on above: Result Comment: Non- immune <0.90 Equivocal 0.90 - 0.99 Immune >0.99 Performed By: #### R UBIGG #### [facility] [address] [place] [address] Dr. Carleen Underwood CBC AUTO DIFFon 01-12-2022 BASO # 0.0 103/ul Normal 0.0-0.1 [facility] Comment on above: Performed By: #### C BC #### [facility] [address] [place] [address] Dr. Carleen Underwood Basophils/100 WBC (Bld) 0.4 % Normal 0.2-2.0 [facility] Comment on above: Performed By: #### C BC #### [facility] [address] [place] [address] Dr. Carleen Underwood EO # 0.1 103/ul Normal 0.0-0.7 [facility] Comment on above: Performed By: #### C BC #### [facility] [address] [place] [address] Dr. Carleen Underwood Eosinophils/100 WBC (Bld) 1.1 % Normal 0.9-7.0 [facility] Comment on above: Performed By: #### C BC #### [facility] [address] [place] [address] Dr. Carleen Underwood Erythrocyte distribution width (RBC) [Ratio] 14.5 % Normal 11.0-15.0 [facility] Comment on above: Performed By: #### C BC #### [facility] [address] [place] [address] Dr. Carleen Underwood Hematocrit (Bld) [Volume fraction] 35.8 % Critically low 36.0-48.0 [facility] Comment on above: Performed By: #### C BC #### [facility] [address] [place] [address] Dr. Carleen Underwood Hemoglobin (Bld) [Mass/Vol] 11.2 g/dL Critically low 12.0-16.0 [facility] Comment on above: Performed By: #### C BC #### [facility] [address] [place] [address] Dr. Carleen Underwood IG # 0.02 10e3/ul Normal 0.00-0.03 [facility] Comment on above: Performed By: #### C BC #### [facility] [address] [place] [address] Dr. Carleen Underwood IG % 0.4 % Normal 0.0-0.5 [facility] Comment on above: Performed By: #### C BC #### [facility] [address] [place] [address] Dr. Carleen Underwood LYMPH # 1.6 103/ul Normal 1.2-3.8 [facility] Comment on above: Performed By: #### C BC #### [facility] [address] [place] [address] Dr. Carleen Underwood Lymphocytes/100 WBC (Bld) 27.9 % Normal 20.5-60.0 [facility] Comment on above: Performed By: #### C BC #### [facility] [address] [place] [address] Dr. Carleen Underwood MANUAL DIFF REQ NO Normal [facility] Comment on above: Performed By: #### C BC #### [facility] [address] [place] [address] Dr. Carleen Underwood MCH (RBC) [Entitic mass] 26.1 pg Critically low 26.7-34.0 [facility] Comment on above: Performed By: #### C BC #### [facility] [address] [place] [address] Dr. Carleen Underwood MCHC (RBC) [Mass/Vol] 31.3 g/dL Normal 29.9-35.2 [facility] Comment on above: Performed By: #### C BC #### [facility] [address] [address] [address] Carleen Underwood MCV (RBC) [Entitic vol] 83.4 fL Normal 81.0-99.0 [facility] Comment on above: Performed By: #### C BC #### [facility] [address] [address] [address] Carleen Underwood MONO # 0.4 103/ul Normal 0.3-0.8 [facility] Comment on above: Performed By: #### C BC #### [facility] [address] [place] [address] Dr. Carlene Underwood Monocytes/100 WBC (Bld) 6.2 % Normal 1.7-12.0 [facility] Comment on above: Performed By: #### C BC #### [facility] [address] [place] [address] Dr. Carleen Underwood NEUT # 3.7 103/ul Normal 1.4-6.5 [facility] Comment on above: Performed By: #### C BC #### [facility] [address] [place] [address] Dr. Carleen Underwood Neutrophils/100 WBC (Bld) 64.0 % Normal 43.0-75.0 [facility] Comment on above: Performed By: #### C BC #### [facility] [address] [place] [address] Dr. Carleen Underwood Platelet mean volume (Bld) [Entitic vol] 10.3 fL Normal 9.5-13.5 [facility] Comment on above: Performed By: #### C BC #### [facility] [address] [place] [address] Dr. Carleen Underwood PLT 229 103/ul Normal 150-450 [facility] Comment on above: Performed By: #### C BC #### [facility] [address] [address] [address] Carleen Underwood RBC 4.29 106/ul Normal 4.20-5.40 [facility] Comment on above: Performed By: #### C BC #### [facility] [address] [place] [address] Dr. Carleen Underwood WBC 5.7 103/ul Normal 4.0-11.0 [facility] Comment on above: Performed By: #### C BC #### [facility] [address] [place] [address] Dr. Carleen Underwood CULTURE URINEon 01-12-2022 CULTURE URINE Culture Observations : LIGHT GROWTH OF MIXED GENITAL YULI. NO POTENTIAL PATHOGENS SEEN. Normal [facility] Comment on above: Performed By: #### U RCX #### [facility] [address] [place] [address] Dr. Carleen Underwood GLYCOHEMOGLOBIN A1Con 2021 ADA RECOMMENDATION SEE BELOW Normal [facility] Comment on above: Result Comment: ADA RECOMMENDED LIMIT 4.0 - 6.0 ADA THERAPEUTIC TARGET < 7.0 ACTION SUGGESTED > 7.0 Performed By: #### G LU1HR #### [facility] [address] [place] [address] Dr. Carleen Underwood Glucose [Mass/Vol] 100 mg/dL Normal [facility] Comment on above: Performed By: #### G LU1HR #### [facility] [address] [place] [address] Dr. Carleen Underwood HbA1c (Bld) [Mass fraction] 5.1 % Normal 4.5-6.2 [facility] Comment on above: Performed By: #### G LU1HR #### [facility] [address] [place] [address] Dr. Carleen Underwood EMILY BOX TEST PT SEND OUTo n 01-12-2022 SENT TO REF LAB 01/12/2022 Normal [facility] Comment on above: Performed By: #### H CVPCRR #### [facility] [address] [place] [address] Dr. Carleen Underwood TYPE AND SCREENon 01-12-2022 TYPE AND SCREEN Negative Normal [facility] Comment on above: Performed By: #### T NS #### [facility] [address] [place] [address] Dr. Carleen Underwood US PREG TVon 12-29-2021 [...] by: BRANDI ANN Date: 2021-12-29 16:07 Normal [facility] Coding Summary.on 02-12-2020 Coding Summary. CODING DATE: 020 FINAL [facility] STATUS: Home (Routine DC) PAYOR: Commercial [...] Esquivel Date Saved: 02/12/2020 10:10 am Normal [facility] Physician Orderon 02-07-2020 Physician Order [id number]:127 Normal [facility] Vital Signs Date Time Vital Sign Value Performing Clinician Facility 07-15-2023 13:00-0500 Body height 170.81 cm Chery Aranda Other [facility] 07-15-2023 13:00-0500 Body mass index (BMI) [Ratio] 39.95 kg/m2 Chery Aranda Other [facility] 07-15-2023 13:00-0500 Body weight 116.58 kg Chery Aranda Other [facility] Other 07-15-2023 13:00-0500 Diastolic blood pressure 74 mm[Hg] Chery Aranda Other [facility] Other 07-15-2023 13:00-0500 Systolic blood pressure 107 mm[Hg] Chery Aranda Other [facility] Other 06-14-2023 13:30-0400 Body height 170.81 cm Chery Aranda Other [facility] Other 06-14-2023 13:30-0400 Body mass index (BMI) [Ratio] 39.42 kg/m2 Chery Aranda Other [facility] Other 06-14-2023 13:30-0400 Body weight 115.03 kg Chery Aranda Other [facility] Other 06-14-2023 13:30-0400 Diastolic blood pressure 72 mm[Hg] Chery Aranda Other [facility] Other 06-14-2023 13:30-0400 Systolic blood pressure 118 mm[Hg] Chery Aranda Other [facility] Other 05-16-2023 13:00-0400 Body height 170.81 cm Chery Aranda Other [facility] Other 05-16-2023 13:00-0400 Body mass index (BMI) [Ratio] 40.1 kg/m2 Chery Aranda Other [facility] Other 05-16-2023 13:00-0400 Body weight 117.03 kg Chery Aranda Other [facility] Other 05-16-2023 13:00-0400 Diastolic blood pressure 67 mm[Hg] Chery Aranda Other [facility] Other 05-16-2023 13:00-0400 Systolic blood pressure 102 mm[Hg] Chery Aranda Other [facility] Other 04-15-2023 13:00-0400 Body height 170.81 cm Chery Aranda Other [facility] Other 04-15-2023 13:00-0400 Body mass index (BMI) [Ratio] 41.35 kg/m2 Chery Aranda Other [facility] Other 04-15-2023 13:00-0400 Body weight 120.66 kg Chery Aranda Other [facility] Other 04-15-2023 13:00-0400 Diastolic blood pressure 71 mm[Hg] Chery Aranda Other [facility] Other 04-15-2023 13:00-0400 Systolic blood pressure 110 mm[Hg] Chery Aranda Other [facility] Other 03-22-2022 02:06-0400 Body weight 117.[address] BRANDI ANN [facility] Comment on above: Performed By: #### HCVPCRR #### [facility] [address] [place] [address] Dr. Carleen Underwood Encounters Encounter Date Encounter Type Care Provider Facility Start: 12-25-2023 End: 12-25-2023 ambulatory DINH AYDE Not Available Start: 12-11-2023 End: 12-11-2023 ambulatory DINH AYDE Not Available Start: 11-27-2023 End: 11-27-2023 ambulatory FRIEDA GENE Not Available Start: 11-13-2023 End: 11-13-2023 ambulatory DINH AYDE Not Available Start: 10-17-2023 End: 10-18-2023 ambulatory COLIN Quiñones [facility] Start: 10-16-2023 End: 10-16-2023 ambulatory DINH AYDE Not Available Start: 10-04-2023 Chart abstracting Chao Marmolejo MD Work Phone: [facility] Start: 09-18-2023 End: 09-18-2023 ambulatory FRIEDA GENE Not Available Start: 08-20-2023 End: 08-20-2023 ambulatory DINH AYDE Not Available Start: 07-26-2023 End: 07-26-2023 ambulatory DINH AYDE Not Available Start: 07-15-2023 End: 07-15-2023 ambulatory Chery Aranda Other [facility] Start: 07-15-2023 Office outpatient vi sit 10 minutes Chery Aranda [facility] Start: 06-14-2023 End: 06-14-2023 ambulatory Chery Aranda Other [facility] Start: 06-14-2023 Office outpatient vi sit 10 minutes Chery Aranda [facility] Start: 05-16-2023 End: 05-16-2023 ambulatory Chery Aranda Other [facility] Other Start: 05-16-2023 Office outpatient vi sit 10 minutes Chery Aranda [facility] Start: 04-15-2023 End: 04-15-2023 ambulatory Chery Aranda Other [facility] Other Start: 04-15-2023 Office outpatient ne w 45 minutes Chery Aranda [facility] Start: 07-31-2022 End: 07-31-[address] DINH [...] Start: 04-26-2023 Influenza vaccination Influenza Vacc ine [facility] Start: 2011 Screening for malign ant neoplasm of cervix Pap Smear [facility] Start: 2009 DTaP,Tdap and Td Vaccines (1 - Tdap) DTaP,Tdap and Td Vaccines (1 - Tdap) [facility] Start: 2008 Adult BMI Screening Adult BMI Screen ing [facility] Start: 2002 Depression Screening Depression Scre ening [facility] Start: 2002 Tobacco Screening Tobacco Screening [facility] Immunizations Immunization Date Immunization Notes Care Provider Fa cility 09-08-2019 influenza virus vaccine, unspecified formulation Chao Ling MD Work Phone: [facility] Payers Date Payer Category Payer Private Health Insurance [employer] A ETNA POS [id number] 2017-Present [phone] [address] [place] [address] [id number] 1990 Unknown [id number] 2.840.1.683287.3.579.2.5 93 1990 Unknown [id number] 2.840.1.528000.3.579.2.5 93 1990 Unknown [id number] 2.840.1.794952.3.579.2.5 93 1990 Unknown [id number] 2.16.840.1.234308.3.579.2.5 93 1990 Unknown [id number] 2.16.840.1.893304.3.579.2.5 93 1990 Unknown [id number] 2.16.840.1.380545.3.579.2.5 93 1990 Unknown [id number] 2.16.840.1.578311.3.579.2.5 93 1990 Unknown [id number] 2.16.840.1.858966.3.579.2.5 93 1990 Unknown [id number] 2.16.840.1.433202.3.579.2.5 93 1990 Unknown [id number] 2.16.840.1.151245.3.579.2.5 93 1990 Unknown [id number] 2.16.840.1.955681.3.579.2.5 93 1990 Unknown [id number] 2.16.840.1.144719.3.579.2.5 93 1990 Unknown [id number] 2.16.840.1.839205.3.579.2.5 93 1990 Unknown [id number] 2.16.840.1.060195.3.579.2.5 93 1990 Unknown [id number] 2.16.840.1.200308.3.579.2.5 93 1990 Unknown [id number] 2.16.840.1.849133.3.579.2.5 93 1990 Unknown [id number] 2.16.840.1.927159.3.579.2.5 93 1990 Unknown [id number] 2.16.840.1.708809.3.579.2.5 93 1990 Unknown [id number] 2.16.840.1.699136.3.579.2.1 259 1990 Unknown [id number] 2.16.840.1.233811.3.579.2.1 259 1990 Unknown [id number] 2.16.840.1.582591.3.579.2.1 259 1990 Unknown [id number] 2.16.840.1.363952.3.579.2.1 259 1990 Unknown [id number] 2.16.840.1.177869.3.579.2.1 259 1990 Unknown [id number] 2.16.840.1.576254.3.579.2.1 259 1990 Unknown [id number] 2.16.840.1.932129.3.579.2.1 259 1990 Unknown [id number] 2.16.840.1.211068.3.579.2.1 259 1959 Private Health Insurance [id number] 1959 Unknown [id number] Unknown [id number] 2.16.840.1.941604.3.579.2.5 93 Social History Date Type Detail Facility Unknown if ever smoked [facility] Other Start: 10-06-2020 End: 10-04-2023 Sex Assigned At [facility] Other Start: 09-11-2019 Tobacco smoking stat [facility] Never smoked tobacco [facility] Start: 09-11-2019 Tobacco use and exposure Smokeless tobacco non-user [facility] Start: 10-04-2023 Alcohol intake Ex-drinker (finding) [facility] Start: 10-06-2020 End: 10-04-2023 History of Social function [facility] Childcare Unknown [facility] Start: 05-30-2023 [facility] Start: 1990 Sex Assigned At Not on file P [facility] Evaluation note 07-15-2023 Note Date & Type Note Facility 07-15-2023 Evaluation note Encounter Date Diagnosis Assessment Notes Jun, First trimester (ICD-10 - Z34.91) Continued followup w Dr. Marroquin. No further adipex. [facility] Other Evaluation note 06-14-2023 Note Date & [...] index [BMI] 39.0-39.9, adult (ICD-10 - Z68.39) [facility] Other Evaluation note 05-16-2023 Note Date & [...] index [BMI] 40.0-44.9, adult (ICD-10 - Z68.41) [facility] Other Evaluation note 04-15-2023 Note Date & [...] index [BMI] 40.0-44.9, adult (ICD-10 - Z68.41) [facility] Other History general Narrative - Reported Note Date & Type Note Facility History general Narrative - Reported Type Surgical History T & A 2010 Surgical History Gallbladder 2013 [facility] Other History general Narrative - Reported Note Date & Type Note Facility History general Narrative - Reported Type Surgical History T & A 2010 Surgical History Gallbladder 2013 Hospitalization History see surgical hx [facility] Other History general Narrative - Reported Note [...] Gallbladder 2012 Hospitalization History see surgical hx [facility] Other Instructions Note Date & Type Note [...] section and content) DATE CREATED AUTHOR 03/11/2020 [place] [facility] DATE CREATED AUTHOR AUTHOR'S ORGANIZ ATION 08/04/2022 [facility] DATE CREATED AUTHOR AUTHOR'S ORGANIZ ATION 12/27/2023 [facility] EPIC DATE CREATED AUTHOR AUTHOR'S ORGANIZ ATION 12/31/2023 [facility] REASON FOR VISIT (unrecogniz ed section and content) ESTABLISH CARE1 month Follow up1 month Follow up1 month Follow up Care Teams (unrecognized sec tion and content) 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 [employer] [facility] provides no warranty or guarantee of the accuracy or completeness of information in this document.
--- NOTE | 2024-01-03 16:07 | US_ITS ---
[address] [address] Patient Name: YANETH BROWNLEE MRN: [id number] date: 1990 Sex: F Assigned Patient Location: [facility] Current Patient Location: Accession/Order Number: [id number] Exam Date: 01/03/2024 16:14 Report Date: 01/04/2024 06:24 At the request of: FRIEDA MILLS Procedure: US OB BPP w non-stress EXAMINATION: US OB BPP w non-stress HISTORY: POOR GROWTH [id number] COMPARISON: Ultrasound OB biophysical 12/26/2023 TECHNIQUE: Ultrasound biophysical profile was performed in the radiology department. BREATHING MOVEMENTS: 2 GROSS BODY MOVEMENTS: 2 TONE: 2 QUALITATIVE AMNIOTIC FLUID VOLUME: 2 PRESENTATION: Transverse HEART RATE: 126 bpm. AMNIOTIC FLUID VOLUME: 15.2 cm (normal range) GESTATIONAL AGE: 33 weeks 1 day CONCLUSION: Total biophysical profile score 8. Electronically authenticated by: FOUZIA CALERO Date: 01/04/2024 06:24
[2024-01-03 17:23] VITALS: BP 134/74; PULSE 68
== END 2024-01-03 17:25 | disposition home or self-care (01) ==
LOC: FBCO 07:20 → FBC 16:00
PROVIDERS: PCP Family Medicine; Visit Provider Physician Assistant
DX: O36.5930 Maternal care for other known or suspected poor fetal growth, third trimester, not applicable or unspecified (principal); Z3A.33 33 weeks gestation of pregnancy
CPT/HCPCS: 76818

== ENCOUNTER 2024-01-06 07:09 | Outpatient (OUT) | payer OTHER, SELFPAY ==
--- OUTSIDE RECORDS SUMMARY | 2024-01-06 07:13 | XMS_ITS | CCD ---
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, Pola Mota Primary Care Provider DINH MARROQUIN Attending Unavailable GENEFRIEDA Attending Unavailable AYDE, DINH Attending Unavailable AYDE, DINH Attending Unavailable GENE, FRIEDA Attending Unavailable DINH MARROQUIN Attending Unavailable DINH [...] Active Start: 05-16-2023 take 1 capsule by [facility] every twenty-four hours Phentermine HCl 37.5 MG 1 capsule Orally Once a day for 30 days Apr, Active Start: 04-15-2023 take 1 capsule by [facility] every twenty-four hours Phentermine HCl 37.5 MG 1 capsule Orally Once a day for 30 days Mar, Active [id number] ac id 29 mg iron- 1 mg [...] 10-26-2023 [place]ie tp. B1 <1:10 Normal <1:10 [facility] Comment on above: Performed By: #### C MVG, LUPPRO, AT3A, PROCAC, PROSAC, CMVM, CMIS, TOXOG, TOXOM, HOCYS #### [facility] [address] [place] [address] Sander Wooden Pencils: Tanvir Macias MD #### APTMUT, AF5MUT, AMTHFR, ACOXA9, APARVP, ACOXAB #### [facility] [address] [place], [place] [id number] Sander Wooden Pencils: MD Tatum Santoyo. B2 1:20 Normal <1:10 [facility] Comment on above: Performed By: #### C MVG, LUPPRO, AT3A, PROCAC, PROSAC, CMVM, CMIS, TOXOG, TOXOM, HOCYS #### [facility] [address] [place] [address] Sander Wooden Pencils: Tanvir Macias MD #### APTMUT, AF5MUT, AMTHFR, ACOXA9, APARVP, ACOXAB #### [facility] [address] [place], [place] [id number] Sander Wooden Pencils: MD Tatum Santoyo. B3 1:10 Normal <1:10 [facility] Comment on above: Performed By: #### C MVG, LUPPRO, AT3A, PROCAC, PROSAC, CMVM, CMIS, TOXOG, TOXOM, HOCYS #### [facility] [address] [place] [address] Sander Wooden Pencils: Tanvir Macias MD #### APTMUT, AF5MUT, AMTHFR, ACOXA9, APARVP, ACOXAB #### [facility] [address] [place], [place] [id number] Sander Wooden Pencils: MD Tatum Santoyo B4 1:320 Abnormal <1:10 [facility] Comment on above: Performed By: #### C MVG, LUPPRO, AT3A, PROCAC, PROSAC, CMVM, CMIS, TOXOG, TOXOM, HOCYS #### [facility] [address] [place] [address] Sander Wooden Pencils: Tanvir Macias MD #### APTMUT, AF5MUT, AMTHFR, ACOXA9, APARVP, ACOXAB #### [facility] [address] [place] [address] Sander Wooden Pencils: MD Tatum Santoyo. B5 <1:10 Normal <1:10 [facility] Comment on above: Performed By: #### C MVG, LUPPRO, AT3A, PROCAC, PROSAC, CMVM, CMIS, TOXOG, TOXOM, HOCYS #### [address] [id number] Sander Wooden Pencils: Tanvir Macias MD #### APTMUT, AF5MUT, AMTHFR, ACOXA9, APARVP, ACOXAB #### [address] [address] Sander Wooden Pencils: MD Tatum Santoyo. B6 <1:10 Normal <1:10 [facility] Comment on above: Result Comment: (NOT E) INTERPRETIVE INFORMATION: Coxsackie B Virus Single positive antibody titers of greater than or equal to 1:80 may indicate past or current infection. Sero- conversion or an increase in titers between acute and convalescent sera of at least fourfold is considered strong evidence of current or recent infection. Performed By: [facility] [address] [place] [address] Photographic Laboratory Technician: Nadeem Mcarthur MD, PhD CLIA Number: [id number] Performed By: #### C MVG, LUPPRO, AT3A, PROCAC, PROSAC, CMVM, CMIS, TOXOG, TOXOM, HOCYS #### [address] [id number] Sander Wooden Pencils: Tanvir Macias MD #### APTMUT, AF5MUT, AMTHFR, ACOXA9, APARVP, ACOXAB #### [address] [id number] Sander Wooden Pencils: Enrique Arthur MD Factor V Mutationon 10-22-19 24 F 5 SPECIMEN Whole Blood Normal [facility] Comment on above: Performed By: #### C MVG, LUPPRO, AT3A, PROCAC, PROSAC, CMVM, CMIS, TOXOG, TOXOM, HOCYS #### [facility] [address] [place] [address] Sander Wooden Pencils: Tanvir Macias MD #### APTMUT, AF5MUT, AMTHFR, ACOXA9, APARVP, ACOXAB #### [facility] [address] [place] [address] Sander Wooden Pencils: Enrique Arthur MD FACTOR 5 MUTATION Negative Normal [facility] Comment on above: Result Comment: (NOT E) Indication for testing: Assess genetic risk for thrombosis. NEGATIVE: The factor V Leiden variant, c.1601G>A; p.Sks637Bbk, was not detected. This does not exclude [...] function in the F5 gene variant c.1601G>A (p.Dwa639Lyg). Legacy nomenclature: [id number] (1691G>A) CLINICAL SENSITIVITY: 20-50 percent of individuals with an isolated VTE have the FVL variant. METHODOLOGY: Polymerase chain reaction and fluorescence monitoring. ANALYTICAL SENSITIVITY AND SPECIFICITY: 99 percent. LIMITATIONS: Diagnostic errors can occur due to rare sequence variations. F5 gene mutations, other than p.Sfg027Gvv, will not be detected. This test was developed and its performance characteristics determined by [facility]. It has not been cleared or approved by the [place] Food and Drug Administration. This test was performed in a CLIA certified laboratory and is intended for clinical purposes. Counseling and informed consent are recommended for genetic testing. Consent forms are available online. Performed By: [facility] [address] [place] [address] Photographic Laboratory Technician: Nadeem Mcarthur MD, PhD CLIA Number: [id number] Performed By: #### C MVG, LUPPRO, AT3A, PROCAC, PROSAC, CMVM, CMIS, TOXOG, TOXOM, HOCYS #### [place] [address] Sander Wooden Pencils: Tanvir Macias MD #### APTMUT, AF5MUT, AMTHFR, ACOXA9, APARVP, ACOXAB #### [place] [id number] Sander Wooden Pencils: Enrique Arthur MD Coxsackie A9 Titeron 024 Coxsackie A9 Titer <1:8 Normal <1:8 [facility] Comment on above: Result Comment: (NOT E) INTERPRETIVE INFORMATION: Coxsackie A Serotype 9 Titer Single positive antibody titers of greater than 1:32 may indicate past or current infection. Seroconversion or an increase in titers between acute and convalescent sera of at least fourfold is considered strong evidence of current or recent infection. Performed By: [facility] [address] [place], [place] [id number] Photographic Laboratory Technician: Nadeem Mcarthur MD, PhD CLIA Number: [id number] Performed By: #### C MVG, LUPPRO, AT3A, PROCAC, PROSAC, CMVM, CMIS, TOXOG, TOXOM, HOCYS #### [address] [address] Sander Wooden Pencils: Tanvir Macias MD #### APTMUT, AF5MUT, AMTHFR, ACOXA9, APARVP, ACOXAB #### [facility] [address] [place] [address] Sander Wooden Pencils: Enrique Arthur MD MTHFR Gene Mutationon 2023 MTHFR 1286 A>C Mut Negative Normal [facility] Comment on above: Performed By: #### C MVG, LUPPRO, AT3A, PROCAC, PROSAC, CMVM, CMIS, TOXOG, TOXOM, HOCYS #### [address] [address] Sander Wooden Pencils: Tanvir Macias MD #### APTMUT, AF5MUT, AMTHFR, ACOXA9, APARVP, ACOXAB #### [facility] [address] [place], [place] [id number] Sander Wooden Pencils: Enrique Arthur MD MTHFR 655C>T Mut Heterozygous Normal [facility] Comment on above: Performed By: #### C MVG, LUPPRO, AT3A, PROCAC, PROSAC, CMVM, CMIS, TOXOG, TOXOM, HOCYS #### [address] [address] Sander Wooden Pencils: Tanvir Macias MD #### APTMUT, AF5MUT, AMTHFR, ACOXA9, APARVP, ACOXAB #### [facility] [address] [place], [place] [id number] Sander Wooden Pencils: Enrique Arthur MD MTHFR Interpretation See Note Normal [facility] Comment on above: Result Comment: (NOT E) Indication for testing: Determine genetic contribution to hyperhomocysteinemia. Heterozygous MTHFR c.665C>T: One copy of the MTHFR variant c.665C>T (previously designated C677T) was detected; the c.1286A>C (previously designated Q0776K) variant was not identified. The common variant [...] has an effect on cardiovascular disease. The [place] Practice Guidelines indicate [...] a contributing factor to hyperhomocysteinemia. Variants Tested: c.665C>T(p.Bgf500Naf) and c.1286A>C(p.Xhc015Tcr). (legacy names C677T and N3607H, respectively). Clinical Sensitivity: Undefined; hyperhomocysteinemia is caused [...] developed and its performance characteristics determined by [facility]. It has not been cleared or approved by the [place] Food and Drug Administration. This test was performed in a CLIA certified laboratory and is intended for clinical purposes. Counseling and informed consent are recommended for genetic testing. Consent forms are available online. Performed By: [facility] [address] [place], [place] [id number] Photographic Laboratory Technician: Nadeem Mcarthur MD, PhD CLIA Number: [id number] Performed By: #### C MVG, LUPPRO, AT3A, PROCAC, PROSAC, CMVM, CMIS, TOXOG, TOXOM, HOCYS #### [facility] [address] [place] [address] Sander Wooden Pencils: Tanvir Macias MD #### APTMUT, AF5MUT, AMTHFR, ACOXA9, APARVP, ACOXAB #### [facility] [address] [place] [address] Sander Wooden Pencils: Enrique Arthur MD MTHFR SPECIMEN Whole Blood Normal [facility] Comment on above: Performed By: #### C MVG, LUPPRO, AT3A, PROCAC, PROSAC, CMVM, CMIS, TOXOG, TOXOM, HOCYS #### [facility] [address] [place] [address] Sander Wooden Pencils: Tanvir Macias MD #### APTMUT, AF5MUT, AMTHFR, ACOXA9, APARVP, ACOXAB #### [facility] [address] [place], [place] [id number] Sander Wooden Pencils: Enrique Arthur MD PT Mutation [id number] 10-21-19 24 PT [id number] VARIANT Negative Normal [facility] Comment on above: Result Comment: (NOT E) Indication for testing: Assess genetic risk for thrombosis. NEGATIVE: The Factor II, prothrombin Q04530R mutation, was not detected. Other causes of [...] Quintana, Ph.D. BACKGROUND INFORMATION: Prothrombin (F2) c.*97G>A (G07222Z) Pathogenic Variant CHARACTERISTICS: The Factor II, c.*97G>A (Q81504D) pathogenic variant is a common genetic risk [...] CAUSE: Homozygosity or heterozygosity for F2 c.*97G>A (B77497M). PATHOGENIC VARIANT TESTED: F2 c.*97G>A (P19455R). CLINICAL SENSITIVITY FOR VENOUS THROMBOSIS: Approximately 10 percent. METHODOLOGY: Polymerase chain reaction and fluorescence monitoring. ANALYTICAL SENSITIVITY AND SPECIFICITY: 99 percent. LIMITATIONS: Diagnostic errors can occur due to rare sequence variations. F2 gene variants, other than c.*97G>A (W21912G), will not be detected. This test was developed and its performance characteristics determined by [facility]. It has not been cleared or approved by the [place] Food and Drug Administration. This test was performed in a CLIA certified laboratory and is intended for clinical purposes. Counseling and informed consent are recommended for genetic testing. Consent forms are available online. Performed By: [facility] [address] [place] [address] Photographic Laboratory Technician: Nadeem Mcarthur MD, PhD CLIA Number: [id number] Performed By: #### C MVG, LUPPRO, AT3A, PROCAC, PROSAC, CMVM, CMIS, TOXOG, TOXOM, HOCYS #### [address] [address] Sander Wooden Pencils: Tanvir Macias MD #### APTMUT, AF5MUT, AMTHFR, ACOXA9, APARVP, ACOXAB #### [facility] [address] [place] [id number] Sander Wooden Pencils: Enrique Arthur MD PT PCR SPECIMEN Whole Blood Normal [facility] Comment on above: Performed By: #### C MVG, LUPPRO, AT3A, PROCAC, PROSAC, CMVM, CMIS, TOXOG, TOXOM, HOCYS #### [facility] [place], [place] [id number] Sander Wooden Pencils: Tanvir Macias MD #### APTMUT, AF5MUT, AMTHFR, ACOXA9, APARVP, ACOXAB #### [facility] [address] [place] [address] Sander Wooden Pencils: Enrique Arthur MD Parvovirus B19 Panelon 10-21 Parvovirus IgG B19 1.80 IV High <=0.90 [facility] Comment on above: Result Comment: (NOT E) [...] PROSAC, CMVM, CMIS, TOXOG, TOXOM, HOCYS #### [facility] [place] [address] Sander Wooden Pencils: Tanvir Macias MD #### APTMUT, AF5MUT, AMTHFR, ACOXA9, APARVP, ACOXAB #### [facility] [address] [place], [place] [id number] Sander Wooden Pencils: Enrique Arthur MD Parvovirus IgM B19 0.12 IV Normal <=0.90 [facility] Comment on above: Result Comment: (NOT E) INTERPRETIVE INFORMATION: Parvovirus B19 Antibody, IgM EFFECTIVE 07/04/2023 REFERENCE INTERVAL CHANGE Due to reagent kit dough cutter recall, an alternate kit has been validated and implemented by [facility]. The following Reference Interval applies to [...] levels of specific IgM antibodies. Performed By: [facility] [address] [place] [address] Photographic Laboratory Technician: Nadeem Mcarthur MD, PhD CLIA Number: [id number] Performed By: #### C MVG, LUPPRO, AT3A, PROCAC, PROSAC, CMVM, CMIS, TOXOG, TOXOM, HOCYS #### [facility] [place] [address] Sander Wooden Pencils: Tanvir Macias MD #### APTMUT, AF5MUT, AMTHFR, ACOXA9, APARVP, ACOXAB #### [facility] [address] [place] [address] Sander Wooden Pencils: Enrique Arthur MD Antithrombin III [place] 10-18 Antithrombin III Act 106 % Normal 83-122 [facility] Comment on above: Result Comment: Patients receiving Hirudin may have a falsely decreased Antitrombin III Activity. Performed By: #### C MVG, LUPPRO, AT3A, PROCAC, PROSAC, CMVM, CMIS, TOXOG, TOXOM, HOCYS #### [facility] [address] [place] [id number] Sander Wooden Pencils: Tanvir Macias MD #### APTMUT, AF5MUT, AMTHFR, ACOXA9, APARVP, ACOXAB #### [facility] [address] [place] [id number] Sander Wooden Pencils: Enrique Arthur MD Lupus Anticoagulanton 2023 Anticardiolipin IgA 2.4 APL Normal 0.0-14.0 [facility] Comment on above: Result Comment: Reference Range: <14.0 Negative 14.0-20.0 Equivocal >20.0 Positive When results are Equivocal, it is recommended to retest after 4-6 weeks. Performed By: #### C MVG, LUPPRO, AT3A, PROCAC, PROSAC, CMVM, CMIS, TOXOG, TOXOM, HOCYS #### [address] [id number] Sander Wooden Pencils: Tanvir Macias MD #### APTMUT, AF5MUT, AMTHFR, ACOXA9, APARVP, ACOXAB #### [facility] [address] [place] [address] Sander Wooden Pencils: Enrique Arthur MD Anticardiolipin IgG 2.8 GPL Normal 0.0-10.0 [facility] Comment on above: Result Comment: Reference Range: <10.0 Negative 10.0-40.0 Equivocal >40.0 Positive Performed By: #### C MVG, LUPPRO, AT3A, PROCAC, PROSAC, CMVM, CMIS, TOXOG, TOXOM, HOCYS #### [address] [phone] Sander Wooden Pencils: Tanvir Macias MD #### APTMUT, AF5MUT, AMTHFR, ACOXA9, APARVP, ACOXAB #### [facility] [address] [place] [address] Sander Wooden Pencils: Enrique Arthur MD Anticardiolipin IgM <0.8 Normal 0.0-10.0 [facility] Comment on above: Result Comment: Reference Range: <10.0 Negative 10.0-40.0 Equivocal >40.0 Positive Performed By: #### C MVG, LUPPRO, AT3A, PROCAC, PROSAC, CMVM, CMIS, TOXOG, TOXOM, HOCYS #### [address] [id number] Sander Wooden Pencils: Tanvir Macias MD #### APTMUT, AF5MUT, AMTHFR, ACOXA9, APARVP, ACOXAB #### [facility] [address] [place], [place] [id number] Sander Wooden Pencils: Enrique Arthur MD Dilute Austin Viper Negative Normal [facility] Comment on above: Performed By: #### C MVG, LUPPRO, AT3A, PROCAC, PROSAC, CMVM, CMIS, TOXOG, TOXOM, HOCYS #### [facility] [address] [place] [address] Sander Wooden Pencils: Tanvir Macias MD #### APTMUT, AF5MUT, AMTHFR, ACOXA9, APARVP, ACOXAB #### [facility] [address] [place], [place] [id number] Sander Wooden Pencils: Enrique Arthur MD Miscellaneouson 10-18-2023 Send Out Report [facility] [id number] Normal [facility] Comment on above: Result Comment: UNIT Y Performed By: #### C MVG, LUPPRO, AT3A, PROCAC, PROSAC, CMVM, CMIS, TOXOG, TOXOM, HOCYS #### [address] [id number] Sander Wooden Pencils: Tanvir Macias MD #### APTMUT, AF5MUT, AMTHFR, ACOXA9, APARVP, ACOXAB #### [facility] [address] [place] [address] Sander Wooden Pencils: Enrique Arthur MD Protein C Activityon 024 Protein C Activity 91 % Normal >80 [facility] Comment on above: Result Comment: Patients on [...] PROSAC, CMVM, CMIS, TOXOG, TOXOM, HOCYS #### [facility] [address] [place] [address] [phone] Sander Wooden Pencils: Tanvir Macias MD #### APTMUT, AF5MUT, AMTHFR, ACOXA9, APARVP, ACOXAB #### [address] [address] Sander Wooden Pencils: nErique Arthur MD Protein S Activityon 024 Protein S Activity 79 % Normal 59-130 [facility] Comment on above: Result Comment: Patients on [...] PROSAC, CMVM, CMIS, TOXOG, TOXOM, HOCYS #### [facility] [address] [place] [address] [phone] Sander Wooden Pencils: Tanvir Macias MD #### APTMUT, AF5MUT, AMTHFR, ACOXA9, APARVP, ACOXAB #### [address] [phone] Sander Wooden Pencils: Enrique Arthur MD Toxoplasma Ab,IgGon 10-18-19 24 Toxoplasma Ab,IgG 1.2 IU/mL Normal [facility] Comment on above: Result Comment: [...] PROSAC, CMVM, CMIS, TOXOG, TOXOM, HOCYS #### [facility] [address] [place] [address] Sander Wooden Pencils: Tanvir Macias MD #### APTMUT, AF5MUT, AMTHFR, ACOXA9, APARVP, ACOXAB #### [address] [phone] Sander Wooden Pencils: Enrique Arthur MD Toxoplasma Ab,IgMon 10-18-19 24 Toxoplasma Ab,IgM 0.56 Index Normal [facility] Comment on above: Result Comment: REFERENCE RANGE: <0.90 NON-REACTIVE 0.90 TO 0.99 INDETERMINANT >=1.00 REACTIVE Performed By: #### C MVG, LUPPRO, AT3A, PROCAC, PROSAC, CMVM, CMIS, TOXOG, TOXOM, HOCYS #### [facility] [address] [place] [id number] Sander Wooden Pencils: Tanvir Macias MD #### APTMUT, AF5MUT, AMTHFR, ACOXA9, APARVP, ACOXAB #### [facility] [address] [place] [address] Sander Wooden Pencils: Enrique Arthur MD CMV Ab,IgGon 10-17-2023 CMV Ab,IgG 523.0 High <0.5 [facility] Comment on above: Result Comment: Reference Range: [...] PROSAC, CMVM, CMIS, TOXOG, TOXOM, HOCYS #### [address] [address] Sander Wooden Pencils: Tanvir Macias MD #### APTMUT, AF5MUT, AMTHFR, ACOXA9, APARVP, ACOXAB #### [facility] [address] [place] [address] Sander Wooden Pencils: Enrique Arthur MD CMV Ab,IgMon 10-17-2023 CMV Ab,IgM 0.2 Normal <0.7 [facility] Comment on above: Result Comment: Reference Range: [...] PROSAC, CMVM, CMIS, TOXOG, TOXOM, HOCYS #### [facility] [address] [place] [address] Sander Wooden Pencils: Tanvir Macias MD #### APTMUT, AF5MUT, AMTHFR, ACOXA9, APARVP, ACOXAB #### [facility] [address] [place] [address] Sander Wooden Pencils: Enrique Arthur MD Homocysteineon 10-17-2023 Homocysteine 5.7 umol/L Normal <15.0 [facility] Comment on above: Performed By: #### C MVG, LUPPRO, AT3A, PROCAC, PROSAC, CMVM, CMIS, TOXOG, TOXOM, HOCYS #### [address] [address] Sander Wooden Pencils: Tanvir Macias MD #### APTMUT, AF5MUT, AMTHFR, ACOXA9, APARVP, ACOXAB #### [facility] [address] [place] [address] Sander Wooden Pencils: Enrique Arthur MD Lupus Anticoagulanton 2023 aPTT Coag (Bld) [Time] 27.6 s Normal 23.0-36.5 [facility] Comment on above: Result Comment: IV Heparin Therapy Range: 66.0-92.0 sec Performed By: #### C MVG, LUPPRO, AT3A, PROCAC, PROSAC, CMVM, CMIS, TOXOG, TOXOM, HOCYS #### [address] [address] Sander Wooden Pencils: Tanvir Macias MD #### APTMUT, AF5MUT, AMTHFR, ACOXA9, APARVP, ACOXAB #### [facility] [address] [place] [address] Sander Wooden Pencils: Enrique Arthur MD INR Coag (PPP) [Relative time] 1.0 {INR} Normal [facility] Comment on above: Result Comment: Therapeutic Range: Moderate Anticoagulant Intensity: INR = 2.0-3.0 High Anticoagulant Intensity: INR = 2.5-3.5 Performed By: #### C MVG, LUPPRO, AT3A, PROCAC, PROSAC, CMVM, CMIS, TOXOG, TOXOM, HOCYS #### [facility] [address] [place] [phone] Sander Wooden Pencils: Tanvir Macias MD #### APTMUT, AF5MUT, AMTHFR, ACOXA9, APARVP, ACOXAB #### [facility] [address] [place] [address] Sander Wooden Pencils: Enrique Arthur MD PT Coag (PPP) [Time] 13.5 s Normal 11.7-14.9 [facility] Comment on above: Performed By: #### C MVG, LUPPRO, AT3A, PROCAC, PROSAC, CMVM, CMIS, TOXOG, TOXOM, HOCYS #### [facility] [address] [place] [address] Sander Wooden Pencils: Tanvir Macias MD #### APTMUT, AF5MUT, AMTHFR, ACOXA9, APARVP, ACOXAB #### [facility] [address] [place] [address] Sander Wooden Pencils: Enrique Arthur MD Basic Metabolic Panelon Glucose [Mass/Vol] 97 mg/dL [facility] CBC without diffOrdered By: [...] immune statuson 07-26-2023 Rubella immune IgG 5.26 [facility] Syphilis Total(Unknown Syphi lis Status)on 07-26-2023 Syphilis Non-Reactive [facility] TSHon 07-26-2023 TSH Qn 1.99 m[IU]/L [facility] Type and screenon 07-26-2023 Abo/Rh(D) Positive [facility] CBC AUTO DIFFon 07-28-2022 BASO # 0.0 103/ul Normal 0.0-0.1 [facility] Comment on above: Performed By: #### H CVPCRR #### [facility] [address] [address] [address] Carleen Underwood Basophils/100 WBC (Bld) 0.3 % Normal 0.2-2.0 [facility] Comment on above: Performed By: #### H CVPCRR #### [facility] [address] [place] [address] Dr. Carleen Underwood EO # 0.2 103/ul Normal 0.0-0.7 [facility] Comment on above: Performed By: #### H CVPCRR #### [facility] [address] [address] [address] Carleen Underwood Eosinophils/100 WBC (Bld) 1.5 % Normal 0.9-7.0 [facility] Comment on above: Performed By: #### H CVPCRR #### [facility] [address] [place] [address] Dr. Carleen Underwood Erythrocyte distribution width (RBC) [Ratio] 14.9 % Normal 11.0-15.0 [facility] Comment on above: Performed By: #### H CVPCRR #### [facility] [address] [address] [address] Carleen Underwood Hematocrit (Bld) [Volume fraction] 30.7 % Critically low 36.0-48.0 [facility] Comment on above: Performed By: #### H CVPCRR #### [facility] [address] [place] [address] Dr. Carleen Underwood Hemoglobin (Bld) [Mass/Vol] 9.4 g/dL Critically low 12.0-16.0 [facility] Comment on above: Performed By: #### H CVPCRR #### [facility] [address] [place] [address] Dr. Carleen Underwood IG # 0.07 10e3/ul Critically high 0.00-0.03 [facility] Comment on above: Performed By: #### H CVPCRR #### [facility] [address] [place] [address] Dr. Carleen Underwood IG % 0.6 % Critically high 0.0-0.5 [facility] Comment on above: Performed By: #### H CVPCRR #### [facility] [address] [place] [address] Dr. Carleen Underwood LYMPH # 2.7 103/ul Normal 1.2-3.8 [facility] Comment on above: Performed By: #### H CVPCRR #### [facility] [address] [place] [address] Dr. Carleen Underwood Lymphocytes/100 WBC (Bld) 24.1 % Normal 20.5-60.0 [facility] Comment on above: Performed By: #### H CVPCRR #### [facility] [address] [place] [address] Dr. Carleen Underwood MANUAL DIFF REQ NO Normal [facility] Comment on above: Performed By: #### H CVPCRR #### [facility] [address] [place] [address] Dr. Carleen Underwood MCH (RBC) [Entitic mass] 23.3 pg Critically low 26.7-34.0 [facility] Comment on above: Performed By: #### H CVPCRR #### [facility] [address] [address] [address] Carleen Underwood MCHC (RBC) [Mass/Vol] 30.6 g/dL Normal 29.9-35.2 [facility] Comment on above: Performed By: #### H CVPCRR #### [facility] [address] [place] [address] Dr. Carleen Underwood MCV (RBC) [Entitic vol] 76.2 fL Critically low 81.0-99.0 [facility] Comment on above: Performed By: #### H CVPCRR #### [facility] [address] [place] [address] Dr. Carleen Underwood MONO # 0.7 103/ul Normal 0.3-0.8 [facility] Comment on above: Performed By: #### H CVPCRR #### [facility] [address] [place] [address] Dr. Carleen Underwood Monocytes/100 WBC (Bld) 5.8 % Normal 1.7-12.0 [facility] Comment on above: Performed By: #### H CVPCRR #### [facility] [address] [place] [address] Dr. Carleen Underwood NEUT # 7.6 103/ul Critically high 1.4-6.5 [facility] Comment on above: Performed By: #### H CVPCRR #### [facility] [address] [place] [address] Dr. Carleen Underwood Neutrophils/100 WBC (Bld) 67.7 % Normal 43.0-75.0 [facility] Comment on above: Performed By: #### H CVPCRR #### [facility] [address] [address] [address] Carleen Underwood Platelet mean volume (Bld) [Entitic vol] 11.1 fL Normal 9.5-13.5 [facility] Comment on above: Performed By: #### H CVPCRR #### [facility] [address] [address] [address] Carleen Underwood PLT 242 103/ul Normal 150-450 [facility] Comment on above: Performed By: #### H CVPCRR #### [facility] [address] [place] [address] Dr. Carleen Underwood RBC 4.03 106/ul Critically low 4.20-5.40 [facility] Comment on above: Performed By: #### H CVPCRR #### [facility] [address] [place] [address] Dr. Carleen Underwood WBC 11.2 103/ul Critically high 4.0-11.0 [facility] Comment on above: Performed By: #### H CVPCRR #### [facility] [address] [place] [address] Dr. Carleen Underwood CBC AUTO DIFFon 07-27-2022 BASO # 0.0 103/ul Normal 0.0-0.1 [facility] Comment on above: Performed By: #### G LU1HR #### [facility] [address] [place] [address] Dr. Carleen Underwood Basophils/100 WBC (Bld) 0.5 % Normal 0.2-2.0 [facility] Comment on above: Performed By: #### G LU1HR #### [facility] [address] [place] [address] Dr. Carleen Underwood EO # 0.1 103/ul Normal 0.0-0.7 [facility] Comment on above: Performed By: #### G LU1HR #### [facility] [address] [place] [address] Dr. Carleen Underwood Eosinophils/100 WBC (Bld) 1.2 % Normal 0.9-7.0 [facility] Comment on above: Performed By: #### G LU1HR #### [facility] [address] [place] [address] Dr. Carleen Underwood Erythrocyte distribution width (RBC) [Ratio] 14.9 % Normal 11.0-15.0 [facility] Comment on above: Performed By: #### G LU1HR #### [facility] [address] [place] [address] Dr. Carleen Underwood Hematocrit (Bld) [Volume fraction] 29.6 % Critically low 36.0-48.0 [facility] Comment on above: Performed By: #### G LU1HR #### [facility] [address] [place] [address] Dr. Carleen Underwood Hemoglobin (Bld) [Mass/Vol] 9.3 g/dL Critically low 12.0-16.0 [facility] Comment on above: Performed By: #### G LU1HR #### [facility] [address] [place] [address] Dr. Carleen Underwood IG # 0.04 10e3/ul Critically high 0.00-0.03 [facility] Comment on above: Performed By: #### G LU1HR #### [facility] [address] [place] [address] Dr. Carleen Underwood IG % 0.5 % Normal 0.0-0.5 [facility] Comment on above: Performed By: #### G LU1HR #### [facility] [address] [place] [address] Dr. Calreen Underwood LYMPH # 2.1 103/ul Normal 1.2-3.8 [facility] Comment on above: Performed By: #### G LU1HR #### [facility] [address] [place] [address] Dr. Carleen Underwood Lymphocytes/100 WBC (Bld) 25.5 % Normal 20.5-60.0 [facility] Comment on above: Performed By: #### G LU1HR #### [facility] [address] [place] [address] Dr. Carleen Underwood MANUAL DIFF REQ NO Normal [facility] Comment on above: Performed By: #### G LU1HR #### [facility] [address] [place] [address] Dr. Carleen Underwood MCH (RBC) [Entitic mass] 23.2 pg Critically low 26.7-34.0 [facility] Comment on above: Performed By: #### G LU1HR #### [facility] [address] [place] [address] Dr. Carleen Underwood MCHC (RBC) [Mass/Vol] 31.4 g/dL Normal 29.9-35.2 [facility] Comment on above: Performed By: #### G LU1HR #### [facility] [address] [place] [address] Dr. Carleen Underwood MCV (RBC) [Entitic vol] 73.8 fL Critically low 81.0-99.0 [facility] Comment on above: Performed By: #### G LU1HR #### [facility] [address] [place] [address] Dr. Carleen Underwood MONO # 0.5 103/ul Normal 0.3-0.8 [facility] Comment on above: Performed By: #### G LU1HR #### [facility] [address] [place] [address] Dr. Carleen Underwood Monocytes/100 WBC (Bld) 6.2 % Normal 1.7-12.0 [facility] Comment on above: Performed By: #### G LU1HR #### [facility] [address] [place] [address] Dr. Carleen Underwood NEUT # 5.4 103/ul Normal 1.4-6.5 [facility] Comment on above: Performed By: #### G LU1HR #### [facility] [address] [place] [address] Dr. Carleen Underwood Neutrophils/100 WBC (Bld) 66.1 % Normal 43.0-75.0 [facility] Comment on above: Performed By: #### G LU1HR #### [facility] [address] [place] [address] Dr. Carleen Underwood Platelet mean volume (Bld) [Entitic vol] 11.3 fL Normal 9.5-13.5 [facility] Comment on above: Performed By: #### G LU1HR #### [facility] [address] [place] [address] Dr. Carleen Underwood PLT 238 103/ul Normal 150-450 [facility] Comment on above: Performed By: #### G LU1HR #### [facility] [address] [place] [address] Dr. Carleen Underwood RBC 4.01 106/ul Critically low 4.20-5.40 [facility] Comment on above: Performed By: #### G LU1HR #### [facility] [address] [place] [address] Dr. Carleen Underwood WBC 8.2 103/ul Normal 4.0-11.0 [facility] Comment on above: Performed By: #### G LU1HR #### [facility] [address] [place] [address] Dr. Carleen Underwood Covid-19 PCR ([facility])on SARS-CoV-2 (COVID-19) RNA HUY+probe Ql (Unsp spec) Not detected Normal NOT DETECTED [facility] Comment on above: Result Comment: When [...] for this test is supported by the [employer] Faculty Liaison of Health and Human Service's declaration that [...] used). Performed By: #### H CVPCRR #### [facility] [address] [place] [address] Dr. Carleen Underwood DRUG SCREEN RAPID (URINE)on 07-27-2022 AMP Negative Normal NEGATIVE [facility] Comment on above: Performed By: #### G TT3P #### [facility] [address] [place] [address] Dr. Carleen Underwood BAR Negative Normal NEGATIVE [facility] Comment on above: Performed By: #### G TT3P #### [facility] [address] [place] [address] Dr. Carleen Underwood BUP Negative Normal NEGATIVE [facility] Comment on above: Performed By: #### G TT3P #### [facility] [address] [place] [address] Dr. Carleen Underwood BZO Negative Normal NEGATIVE [facility] Comment on above: Performed By: #### G TT3P #### [facility] [address] [place] [address] Dr. Carleen Underwood EMIGDIO Negative Normal NEGATIVE [facility] Comment on above: Performed By: #### G TT3P #### [facility] [address] [place] [address] Dr. Carleen Underwood CUT-OFFS SEE BELOW Normal [facility] Comment on above: Result Comment: AMP [...] ng/mL Performed By: #### G TT3P #### [facility] [address] [place] [address] Dr. Carleen Underwood DRUG CUT HEADER DRUG CLASS TEST SYST EM CUT-OFF CONCENTRATIONS ARE FOLLOWS: Normal [facility] Comment on above: Performed By: #### G TT3P #### [facility] [address] [place] [address] Dr. Carleen Underwood mAMP Negative Normal NEGATIVE [facility] Comment on above: Performed By: #### G TT3P #### [facility] [address] [place] [address] Dr. Carleen Underwood MTD Negative Normal NEGATIVE [facility] Comment on above: Performed By: #### G TT3P #### [facility] [address] [place] [address] Dr. Carleen Underwood OPI Negative Normal NEGATIVE [facility] Comment on above: Performed By: #### G TT3P #### [facility] [address] [place] [address] Dr. Carleen Underwood OXY Negative Normal NEGATIVE [facility] Comment on above: Performed By: #### G TT3P #### [facility] [address] [place] [address] Dr. Carleen Underwood PCP Negative Normal NEGATIVE [facility] Comment on above: Performed By: #### G TT3P #### [facility] [address] [place] [address] Dr. Carleen Underwood PPX Negative Normal NEGATIVE [facility] Comment on above: Performed By: #### G TT3P #### [facility] [address] [place] [address] Dr. Carleen Underwood TCA Negative Normal NEGATIVE [facility] Comment on above: Performed By: #### G TT3P #### [facility] [address] [place] [address] Dr. Carleen Underwood THC Negative Normal NEGATIVE [facility] Comment on above: Performed By: #### G TT3P #### [facility] [address] [place] [address] Dr. Carleen Underwood TYPE AND SCREENon 07-27-2022 TYPE AND SCREEN Negative Normal [facility] Comment on above: Performed By: #### G TT3P #### [facility] [address] [place] [address] Dr. Carleen Underwood US PREG AMNIOTIC FLUID [...] FOUZIA CALERO Date: 2022-07-12 16:24 Normal [facility] US PREG BIOPHY W NON STRESSo [...] BRANDI ANN Date: 2022-07-09 16:35 Normal [facility] US PREG BIOPHY W NON STRESSo [...] FOUZIA CALERO Date: 2022-07-06 17:28 Normal [facility] GROUP B STREP CULTUREon 06-26 S. agalactiae Ag Ql (Unsp spec) Culture Observations: NEGATIVE FOR GROUP B STREPTOCOCCUS. Normal [facility] Comment on above: Performed By: #### G TT3P #### [facility] [address] [place] [address] Dr. Carleen Underwood US PREG GROWTHon 07-05-2022 [...] Marroquin was notified of these findings by cook helper juice at time of imaging. 3. Biparietal diameter is at 8th percentile. Electronically authenticated by: FOUZIA CALERO Date: 2022-07-05 16:58 Normal [facility] US PREG GROWTHon 06-11-2022 US PREG [...] FOUZIA CALERO Date: 2022-06-11 16:22 Normal [facility] US PREG INCOMPLETE ANATOMYon 06-11-2022 US [...] FOUZIA CALERO Date: 2022-06-11 16:20 Normal [facility] US PREG INCOMPLETE ANATOMYon 05-14-2022 US [...] FOUZIA CALERO Date: 2022-05-14 17:15 Normal [facility] GTT 3 HR PREGon 04-24-2022 Glucose [Mass/Vol] 91 mg/dL Normal 74-106 [facility] Comment on above: Performed By: #### G TT3P #### [facility] [address] [address] [address] Carleen Underwood Glucose [Mass/Vol] 141 mg/dL Normal [facility] Comment on above: Performed By: #### G TT3P #### [facility] [address] [address] [address] Carleen Underwood Glucose [Mass/Vol] 103 mg/dL Normal [facility] Comment on above: Performed By: #### G TT3P #### [facility] [address] [address] [address] Carleen Underwood Glucose [Mass/Vol] 75 mg/dL Normal [facility] Comment on above: Performed By: #### G TT3P #### [facility] [address] [address] [address] Carleen Underwood US PREG INCOMPLETE ANATOMYon [...] cervical os Normal ventricular outflow tracts Normal [facility] PAP ACOG PANEL 2: 30 to 65on 04-20-2022 . . Normal [facility] Comment on above: Result Comment: Perf ormed at: WB Performed By: #### [id number] #### [facility] [address] [address] [address] Carleen Underwood Age Gdln ACOG Testing [facility] Comment on above: Performed By: #### [id number] #### [facility] [address] [address] [address] Carleen Underwood DIAGNOSIS: Comment Normal [facility] Comment on above: Result Comment: NEGA TIVE FOR INTRAEPITHELIAL LESION OR MALIGNANCY. Performed at: WB Performed By: #### [id number] #### [facility] [address] [address] [address] Carleen Underwood HPV Aptima Negative Normal Negative [facility] Comment on above: Result Comment: This nucleic acid amplification test detects fourteen high-risk HPV types (16,18,31,33,35,39,45,51,52,56,58,59,66,68) without differentiation. Performed at: =G Performed By: #### [id number] #### [facility] [address] [address] [address] Carleen Underwood Methodology: Comment Normal [facility] Comment on above: Result Comment: This liquid based ThinPrep(R) pap test was screened with the use of an image guided system. Performed at: WB Performed By: #### [id number] #### [facility] [address] [address] [address] Carleen Underwood Note: Comment Normal [facility] Comment on above: Result Comment: The Pap smear is a screening test designed to aid in the detection of premalignant and malignant conditions of the uterine cervix. It is not a diagnostic procedure and should not be used as the sole means of detecting cervical cancer. Both false-positive and false-negative reports do occur. . Performed at: WB Performed By: #### [id number] #### [facility] [address] [place] [address] Dr. Carleen Underwood Performed by: Comment Normal [facility] Comment on above: Result Comment: Carol Aguilar, Speech Language Pathologist Prn Performed at: WB Performed By: #### [id number] #### [facility] [address] [place] [address] Dr. Carleen Underwood Specimen adequacy: Comment Normal [facility] Comment on above: Result Comment: Sati sfactory for evaluation. No endocervical component is identified. Performed at: WB Performed By: #### [id number] #### [facility] [address] [place] [address] Dr. Carleen Underwood CHLAMYDIA/GONOCOCCUS HUY (SW AB/URINE/PAPon 04-19-2022 Chlamydia trachomatis, HUY Negative Normal Negative [facility] Comment on above: Performed By: #### H CVPCRR #### [facility] [address] [place] [address] Dr. Carleen Underwood Neisseria gonorrhoeae, HUY Negative Normal Negative [facility] Comment on above: Performed By: #### H CVPCRR #### [facility] [address] [place] [address] Dr. Carleen Underwood VAGINITIS/VAGINOSIS DNA PROB True 04-19-2022 Priya species Negative Normal Negative [facility] Comment on above: Performed By: #### G LU1HR #### [facility] [address] [place] [address] Dr. Carleen Underwood Gardnerella vaginalis Negative Normal Negative [facility] Comment on above: Performed By: #### G LU1HR #### [facility] [address] [place] [address] Dr. Carleen Underwood Trichomonas vaginalis Negative Normal Negative [facility] Comment on above: Performed By: #### G LU1HR #### [facility] [address] [place] [address] Dr. Carleen Underwood GLUCOSE - 1HRon 04-17-2022 Glucose [Mass/Vol] 150 mg/dL Critically high 74-106 [facility] Comment on above: Performed By: #### G LU1HR #### [facility] [address] [place] [address] Dr. Carleen Underwood HEMOGRAM AND PLATELon 2021 Hematocrit (Bld) [Volume fraction] 31.9 % Critically low 36.0-48.0 [facility] Comment on above: Performed By: #### H H #### [facility] [address] [place] [address] Dr. Carleen Underwood Hemoglobin (Bld) [Mass/Vol] 10.3 g/dL Critically low 12.0-16.0 [facility] Comment on above: Performed By: #### H H #### [facility] [address] [place] [address] Dr. Carleen Underwood MCH (RBC) [Entitic mass] 26.6 pg Critically low 26.7-34.0 [facility] Comment on above: Performed By: #### H H #### [facility] [address] [place] [address] Dr. Carleen Underwood MCHC (RBC) [Mass/Vol] 32.3 g/dL Normal 29.9-35.2 [facility] Comment on above: Performed By: #### H H #### [facility] [address] [place] [address] Dr. Carleen Underwood MCV (RBC) [Entitic vol] 82.4 fL Normal 81.0-99.0 [facility] Comment on above: Performed By: #### H H #### [facility] [address] [place] [address] Dr. Carleen Underwood PLT 233 103/ul Normal 150-450 [facility] Comment on above: Performed By: #### H H #### [facility] [address] [place] [address] Dr. Carleen Underwood RBC 3.87 106/ul Critically low 4.20-5.40 [facility] Comment on above: Performed By: #### H H #### [facility] [address] [address] [address] Carleen Underwood WBC 8.5 103/ul Normal 4.0-11.0 [facility] Comment on above: Performed By: #### H H #### [facility] [address] [address] [address] Carleen Underwood AFP MATERNAL FOR SPINA BIFID Aon 03-22-2022 AFP MoM 1.08 Normal [facility] Comment on above: Performed By: #### H CVPCRR #### [facility] [address] [address] [address] Carleen Underwood AFP Value 43.1 ng/mL Normal [facility] Comment on above: Performed By: #### H CVPCRR #### [facility] [address] [address] [address] Carleen Underwood AFP, Serum for Spina Bifida Report Normal [facility] Comment on above: Performed By: #### H CVPCRR #### [facility] [address] [address] [address] Carleen Underwood Comment Comment Normal [facility] Comment on above: Result Comment: Re Quick, Ph.D., [facility] Director . References: Available Upon Request. . Multiples Of Median Cutoffs For AFP Elevations [place] 2.5 Black 2.8 IDD 2.0 Twins 4.5 Abbreviation Definitions IDD - Insulin Dep Diabetes OSBR - Open Spina Bifida Risk . For further inquiries contact [facility] at [phone]. . This test was developed and its performance characteristics determined by [employer]. It has not been cleared or approved by the Food and Drug Administration. Performed By: #### H CVPCRR #### [facility] [address] [place] [address] Dr. Carleen Underwood Gest Age Collection Date 19.4 weeks Normal [facility] Comment on above: Performed By: #### H CVPCRR #### [facility] [address] [place] [address] Dr. Carleen Underwood Gestat, Age Based on LMP Normal [facility] Comment on above: Result Comment: Reca lculations are not recommended when gestational dating by LMP and ultrasound are within 10 days. Performed By: #### H CVPCRR #### [facility] [address] [address] [address] Carleen Underwood Insulin Dep Diabetes No Normal [facility] Comment on above: Performed By: #### H CVPCRR #### [facility] [address] [address] [address] Carleen Underwood Interpretation Comment Normal [facility] Comment on above: Result Comment: Inte [...] Customer Services to discuss available options. The [employer] recommends amniocentesis be offered to women age 35 and older. Performed By: #### H CVPCRR #### [facility] [address] [place] [address] Dr. Carleen Underwood [age] [facility] Comment on above: Performed By: #### H CVPCRR #### [facility] [address] [place] [address] Dr. Carleen Underwood Multiple Gestation No Normal [facility] Comment on above: Performed By: #### H CVPCRR #### [facility] [address] [place] [address] Dr. Carleen Underwood OSBR Risk 1 [place] 9540 [facility] Comment on above: Performed By: #### H CVPCRR #### [facility] [address] [place] [address] Dr. Carleen Underwood PDF . Normal [facility] Comment on above: Performed By: #### H CVPCRR #### [facility] [address] [place] [address] Dr. Carleen Underwood Race Normal [facility] Comment on above: Performed By: #### H CVPCRR #### [facility] [address] [address] [address] Carleen Underwood Test Results: Negative Normal [facility] Comment on above: Performed By: #### H CVPCRR #### [facility] [address] [address] [address] Carleen Underwood US PREG ANATOMY SINGLEon [...] by: FOUZIA CALERO Date: 2022-03-19 17:04 Normal [facility] GLUCOSE - 1HRon 02-14-2022 Glucose [Mass/Vol] 107 mg/dL Critically high 74-106 [facility] Comment on above: Performed By: #### H CVPCRR #### [facility] [address] [place] [address] Dr. Carleen Underwood HEP B SURFACE ANTIGEN SCREEN on 01-13-2022 HBsAg Screen Negative Normal Negative [facility] Comment on above: Performed By: #### H BSANS #### [facility] [address] [address] [address] Carleen Underwood HEPATITIS C VIRUS AB W/ REFL EX QUANTon 01-13-2022 HCV AB <0.1 Normal 0.0-0.9 [facility] Comment on above: Performed By: #### H CVPCRR #### [facility] [address] [place] [address] Dr. Carleen Underwood Interpretation: Comment Normal [facility] Comment on above: Result Comment: Nega tive Not infected with HCV, unless recent infection is suspected or other evidence exists to indicate HCV infection. Performed By: #### H CVPCRR #### [facility] [address] [address] [address] Carleen Underwood HIV 1 AND 2 WITH REFLEXon HIV Screen 4th Generation wRfx Non-Reactive Normal Non Reactive [facility] Comment on above: Result Comment: HIV Negative HIV-1/HIV-2 antibodies and HIV-1 p24 antigen were NOT detected. There is no laboratory evidence of HIV infection. Performed By: #### G LU1HR #### [facility] [address] [place] [address] Dr. Carleen Underwood RPR QUANTon 01-13-2022 Rapid Plasma Reagin, Quant Non-Reactive Normal NonRea<1:1 [facility] Comment on above: Result Comment: Plea se Note: This test does not meet current guidelines for screening and diagnosis of syphilis. This test is intended for following treatment response in patients being treated for syphilis infection. To screen for syphilis infection, a reflex cascade that includes both RPR and a treponema-specific assay should be utilized, such as Treponema pallidum (Syphilis) Screening Ward (019319) or Rapid Plasma Reagin (RPR) Test With Reflex to Quantitative RPR and Confirmatory Treponema pallidum Antibodies ([id number]). Performed By: #### H CVPCRR #### [facility] [address] [place] [address] Dr. Carleen Underwood RUBELLA AB IGGon 01-13-2022 Rubella Antibodies, IgG 4.86 index Normal Immune >0.99 [facility] Comment on above: Result Comment: Non- immune <0.90 Equivocal 0.90 - 0.99 Immune >0.99 Performed By: #### R UBIGG #### [facility] [address] [place] [address] Dr. Carleen Underwood CBC AUTO DIFFon 01-12-2022 BASO # 0.0 103/ul Normal 0.0-0.1 [facility] Comment on above: Performed By: #### C BC #### [facility] [address] [place] [address] Dr. Carleen Underwood Basophils/100 WBC (Bld) 0.4 % Normal 0.2-2.0 [facility] Comment on above: Performed By: #### C BC #### [facility] [address] [place] [address] Dr. Carleen Underwood EO # 0.1 103/ul Normal 0.0-0.7 [facility] Comment on above: Performed By: #### C BC #### [facility] [address] [place] [address] Dr. Carleen Underwood Eosinophils/100 WBC (Bld) 1.1 % Normal 0.9-7.0 [facility] Comment on above: Performed By: #### C BC #### [facility] [address] [place] [address] Dr. Carleen Underwood Erythrocyte distribution width (RBC) [Ratio] 14.5 % Normal 11.0-15.0 [facility] Comment on above: Performed By: #### C BC #### [facility] [address] [place] [address] Dr. Carleen Underwood Hematocrit (Bld) [Volume fraction] 35.8 % Critically low 36.0-48.0 [facility] Comment on above: Performed By: #### C BC #### [facility] [address] [place] [address] Dr. Carleen Underwood Hemoglobin (Bld) [Mass/Vol] 11.2 g/dL Critically low 12.0-16.0 [facility] Comment on above: Performed By: #### C BC #### [facility] [address] [place] [address] Dr. Carleen Underwood IG # 0.02 10e3/ul Normal 0.00-0.03 [facility] Comment on above: Performed By: #### C BC #### [facility] [address] [place] [address] Dr. Carleen Underwood IG % 0.4 % Normal 0.0-0.5 [facility] Comment on above: Performed By: #### C BC #### [facility] [address] [place] [address] Dr. Carleen Underwood LYMPH # 1.6 103/ul Normal 1.2-3.8 [facility] Comment on above: Performed By: #### C BC #### [facility] [address] [place] [address] Dr. Carleen Underwood Lymphocytes/100 WBC (Bld) 27.9 % Normal 20.5-60.0 [facility] Comment on above: Performed By: #### C BC #### [facility] [address] [place] [address] Dr. Carleen Underwood MANUAL DIFF REQ NO Normal [facility] Comment on above: Performed By: #### C BC #### [facility] [address] [place] [address] Dr. Carleen Underwood MCH (RBC) [Entitic mass] 26.1 pg Critically low 26.7-34.0 [facility] Comment on above: Performed By: #### C BC #### [facility] [address] [place] [address] Dr. Carleen Underwood MCHC (RBC) [Mass/Vol] 31.3 g/dL Normal 29.9-35.2 [facility] Comment on above: Performed By: #### C BC #### [facility] [address] [address] [address] Carleen Underwood MCV (RBC) [Entitic vol] 83.4 fL Normal 81.0-99.0 [facility] Comment on above: Performed By: #### C BC #### [facility] [address] [address] [address] Carleen Underwood MONO # 0.4 103/ul Normal 0.3-0.8 [facility] Comment on above: Performed By: #### C BC #### [facility] [address] [place] [address] Dr. Carleen Underwood Monocytes/100 WBC (Bld) 6.2 % Normal 1.7-12.0 [facility] Comment on above: Performed By: #### C BC #### [facility] [address] [place] [address] Dr. Carleen Underwood NEUT # 3.7 103/ul Normal 1.4-6.5 [facility] Comment on above: Performed By: #### C BC #### [facility] [address] [place] [address] Dr. Carleen Underwood Neutrophils/100 WBC (Bld) 64.0 % Normal 43.0-75.0 [facility] Comment on above: Performed By: #### C BC #### [facility] [address] [place] [address] Dr. Carleen Underwood Platelet mean volume (Bld) [Entitic vol] 10.3 fL Normal 9.5-13.5 [facility] Comment on above: Performed By: #### C BC #### [facility] [address] [place] [address] Dr. Carleen Underwood PLT 229 103/ul Normal 150-450 [facility] Comment on above: Performed By: #### C BC #### [facility] [address] [address] [address] Carleen Underwood RBC 4.29 106/ul Normal 4.20-5.40 [facility] Comment on above: Performed By: #### C BC #### [facility] [address] [place] [address] Dr. Carleen Underwood WBC 5.7 103/ul Normal 4.0-11.0 [facility] Comment on above: Performed By: #### C BC #### [facility] [address] [place] [address] Dr. Carleen Underwood CULTURE URINEon 01-12-2022 CULTURE URINE Culture Observations : LIGHT GROWTH OF MIXED GENITAL YULI. NO POTENTIAL PATHOGENS SEEN. Normal [facility] Comment on above: Performed By: #### U RCX #### [facility] [address] [place] [address] Dr. Carleen Underwood GLYCOHEMOGLOBIN A1Con 2021 ADA RECOMMENDATION SEE BELOW Normal [facility] Comment on above: Result Comment: ADA RECOMMENDED LIMIT 4.0 - 6.0 ADA THERAPEUTIC TARGET < 7.0 ACTION SUGGESTED > 7.0 Performed By: #### G LU1HR #### [facility] [address] [place] [address] Dr. Carleen Underwood Glucose [Mass/Vol] 100 mg/dL Normal [facility] Comment on above: Performed By: #### G LU1HR #### [facility] [address] [place] [address] Dr. Carleen Underwood HbA1c (Bld) [Mass fraction] 5.1 % Normal 4.5-6.2 [facility] Comment on above: Performed By: #### G LU1HR #### [facility] [address] [place] [address] Dr. Carleen Underwood EMILY BOX TEST PT SEND OUTo n 01-12-2022 SENT TO REF LAB 01/12/2022 Normal [facility] Comment on above: Performed By: #### H CVPCRR #### [facility] [address] [place] [address] Dr. Carleen Underwood TYPE AND SCREENon 01-12-2022 TYPE AND SCREEN Negative Normal [facility] Comment on above: Performed By: #### T NS #### [facility] [address] [place] [address] Dr. Carleen Underwood US PREG TVon 12-29-2021 [...] by: BRANDI ANN Date: 2021-12-29 16:07 Normal [facility] Coding Summary.on 02-12-2020 Coding Summary. CODING DATE: 020 FINAL [facility] STATUS: Home (Routine DC) PAYOR: Commercial [...] Esquivel Date Saved: 02/12/2020 10:10 am Normal [facility] Physician Orderon 02-07-2020 Physician Order [id number]:127 Normal [facility] Vital Signs Date Time Vital Sign Value Performing Clinician Facility 07-15-2023 13:00-0500 Body height 170.81 cm Chery Aranda Other [facility] Other 07-15-2023 13:00-0500 Body mass index (BMI) [Ratio] 39.95 kg/m2 Chery Aranda Other [facility] Other 07-15-2023 13:00-0500 Body weight 116.58 kg Chery Aranda Other [facility] Other 07-15-2023 13:00-0500 Diastolic blood pressure 74 mm[Hg] Chery Aranda Other [facility] Other 07-15-2023 13:00-0500 Systolic blood pressure 107 mm[Hg] Chery Aranda Other [facility] Other 06-14-2023 13:30-0400 Body height 170.81 cm Chery Aranda Other [facility] Other 06-14-2023 13:30-0400 Body mass index (BMI) [Ratio] 39.42 kg/m2 Chery Aranda Other [facility] Other 06-14-2023 13:30-0400 Body weight 115.03 kg Chery Aranda Other [facility] Other 06-14-2023 13:30-0400 Diastolic blood pressure 72 mm[Hg] Chery Aranda Other [facility] Other 06-14-2023 13:30-0400 Systolic blood pressure 118 mm[Hg] Chery Aranda Other [facility] Other 05-16-2023 13:00-0400 Body height 170.81 cm Chery Aranda Other [facility] Other 05-16-2023 13:00-0400 Body mass index (BMI) [Ratio] 40.1 kg/m2 Chery Aradna Other [facility] Other 05-16-2023 13:00-0400 Body weight 117.03 kg Chery Aranda Other [facility] Other 05-16-2023 13:00-0400 Diastolic blood pressure 67 mm[Hg] Chery Aranda Other [facility] Other 05-16-2023 13:00-0400 Systolic blood pressure 102 mm[Hg] Chery Aranda Other [facility] Other 04-15-2023 13:00-0400 Body height 170.81 cm Chery Aranda Other [facility] Other 04-15-2023 13:00-0400 Body mass index (BMI) [Ratio] 41.35 kg/m2 Chery Aranda Other [facility] Other 04-15-2023 13:00-0400 Body weight 120.66 kg Chery Aranda Other [facility] Other 04-15-2023 13:00-0400 Diastolic blood pressure 71 mm[Hg] Chery Aranda Other [facility] Other 04-15-2023 13:00-0400 Systolic blood pressure 110 mm[Hg] Chery Aranda Other [facility] Other 03-22-2022 02:06-0400 Body weight 117.[address] BRANDI ANN [facility] Comment on above: Performed By: #### HCVPCRR #### [facility] [address] [place] [address] Dr. Carleen Underwood Encounters Encounter Date Encounter Type Care Provider Facility Start: 12-25-2023 End: 12-25-2023 ambulatory DINH AYDE Not Available Start: 12-11-2023 End: 12-11-2023 ambulatory DINH AYDE Not Available Start: 11-27-2023 End: 11-27-2023 ambulatory FRIEDA GENE Not Available Start: 11-13-2023 End: 11-13-2023 ambulatory DINH AYDE Not Available Start: 10-17-2023 End: 10-18-2023 ambulatory COLIN Qui[facility]ones [facility] Start: 10-16-2023 End: 10-16-2023 ambulatory DINH AYDE Not Available Start: 10-04-2023 Chart abstracting Chao Marmolejo MD Work Phone: [facility] Start: 09-18-2023 End: 09-18-2023 ambulatory FRIEDA GENE Not Available Start: 08-20-2023 End: 08-20-2023 ambulatory DINH AYDE Not Available Start: 07-26-2023 End: 07-26-2023 ambulatory DINH AYDE Not Available Start: 07-15-2023 End: 07-15-2023 ambulatory Chery Aranda Other [facility] Other Start: 07-15-2023 Office outpatient vi sit 10 minutes Chery Aranda [facility] Start: 06-14-2023 End: 06-14-2023 ambulatory Chery Aranda Other [facility] Other Start: 06-14-2023 Office outpatient vi sit 10 minutes hCery Aranda [facility] Start: 05-16-2023 End: 05-16-2023 ambulatory Chery Aranda Other [facility] Other Start: 05-16-2023 Office outpatient vi sit 10 minutes Chery Aranda [facility] Start: 04-15-2023 End: 04-15-2023 ambulatory Chery Aranda Other [facility] Other Start: 04-15-2023 Office outpatient ne w 45 minutes Chery Aranda [facility] Start: 07-31-2022 End: 07-31-[address] DINH [...] Start: 10-22-2023 End: 10-22-2023 Patient encounter procedure [facility] Start: 04-26-2023 Influenza [...] Private Health Insurance [employer] A ETNA POS [id number] 2017-Present [phone] [address] [place] [address] [id number] 1990 Unknown [id number] 2.840.1.310101.3.579.2.5 93 1990 Unknown [id number] 2.840.1.106399.3.579.2.5 93 1990 Unknown [id number] 2.840.1.169799.3.579.2.5 93 1990 Unknown [id number] 2.16.840.1.742323.3.579.2.5 93 1990 Unknown [id number] 2.16.840.1.504795.3.579.2.5 93 1990 Unknown [id number] 2.16.840.1.962823.3.579.2.5 93 1990 Unknown [id number] 2.16.840.1.742206.3.579.2.5 93 1990 Unknown [id number] 2.16.840.1.831170.3.579.2.5 93 1990 Unknown [id number] 2.16.840.1.841362.3.579.2.5 93 1990 Unknown [id number] 2.16.840.1.488792.3.579.2.5 93 1990 Unknown [id number] 2.16.840.1.469150.3.579.2.5 93 1990 Unknown [id number] 2.16.840.1.825504.3.579.2.5 93 1990 Unknown [id number] 2.16.840.1.332806.3.579.2.5 93 1990 Unknown [id number] 2.16.840.1.450679.3.579.2.5 93 1990 Unknown [id number] 2.16.840.1.195671.3.579.2.5 93 1990 Unknown [id number] 2.16.840.1.947766.3.579.2.5 93 1990 Unknown [id number] 2.16.840.1.003823.3.579.2.5 93 1990 Unknown [id number] 2.16.840.1.130237.3.579.2.5 93 1990 Unknown [id number] 2.16.840.1.202624.3.579.2.1 259 1990 Unknown [id number] 2.16.840.1.712804.3.579.2.1 259 1990 Unknown [id number] 2.16.840.1.375413.3.579.2.1 259 1990 Unknown [id number] 2.16.840.1.070758.3.579.2.1 259 1990 Unknown [id number] 2.16.840.1.787270.3.579.2.1 259 1990 Unknown [id number] 2.16.840.1.612755.3.579.2.1 259 1990 Unknown [id number] 2.16.840.1.792540.3.579.2.1 259 1990 Unknown [id number] 2.16.840.1.007654.3.579.2.1 259 1959 Private Health Insurance [id number] 1959 Unknown [id number] Unknown [id number] 2.16.840.1.471730.3.579.2.5 93 Social History Date Type Detail Facility Unknown if ever smoked [facility] Other Start: 10-06-2020 End: 10-04-2023 Sex Assigned At [facility] Other Start: 09-11-2019 Tobacco smoking stat [facility] Never smoked tobacco [facility] Start: 09-11-2019 Tobacco use and exposure Smokeless tobacco non-user [facility] Start: 10-04-2023 Alcohol intake Ex-drinker (finding) [facility] Start: 10-06-2020 End: 10-04-2023 History of Social function [facility] Childcare Unknown [facility] Start: 05-30-2023 [facility] Start: 1990 Sex Assigned At Not on file P [facility] Evaluation note 07-15-2023 Note Date & Type Note Facility 07-15-2023 Evaluation note Encounter Date Diagnosis Assessment Notes Jun, First trimester (ICD-10 - Z34.91) Continued followup w Dr. Marroquin. No further adipex. [facility] Other Evaluation note 06-14-2023 Note Date & [...] index [BMI] 39.0-39.9, adult (ICD-10 - Z68.39) [facility] Other Evaluation note 05-16-2023 Note Date & [...] index [BMI] 40.0-44.9, adult (ICD-10 - Z68.41) [facility] Other Evaluation note 04-15-2023 Note Date & [...] index [BMI] 40.0-44.9, adult (ICD-10 - Z68.41) [facility] Other History general Narrative - Reported Note Date & Type Note Facility History general Narrative - Reported Type Surgical History T & A 2010 Surgical History Gallbladder 2013 [facility] Other History general Narrative - Reported Note Date & Type Note Facility History general Narrative - Reported Type Surgical History T & A 2010 Surgical History Gallbladder 2013 Hospitalization History see surgical hx [facility] Other History general Narrative - Reported Note [...] Gallbladder 2012 Hospitalization History see surgical hx [facility] Other Instructions Note Date & Type Note [...] section and content) DATE CREATED AUTHOR 03/11/2020 [facility] [place] [facility] DATE CREATED AUTHOR AUTHOR'S ORGANIZ ATION 08/04/2022 [facility] DATE CREATED AUTHOR AUTHOR'S ORGANIZ ATION 12/27/2023 [facility] EPIC DATE CREATED AUTHOR AUTHOR'S ORGANIZ ATION 12/31/2023 [facility] REASON FOR VISIT (unrecogniz ed section and content) ESTABLISH CARE1 month Follow up1 month Follow up1 month Follow up Care Teams (unrecognized sec tion and content) Bacteriology Research Assistant Relationship Specialty Start Date End Date Pola Osei, MANAGER [employer] [id number] [facility] [address] [place] [address] PCP - General 12/29/16 FOR RECORDS PERTAINING [...] BE BASED ON THE PRIMARY CLINICAL RECORDS. [employer] [facility]. provides no warranty or guarantee of the accuracy or completeness of information in this document.
[2024-01-06 10:09] VITALS: BP 124/76; PULSE 70
== END 2024-01-06 10:34 | disposition home or self-care (01) ==
LOC: FBCO 07:10 → FBC 10:04
PROVIDERS: PCP Family Medicine; Visit Provider Obstetrics & Gynecology
DX: O36.5930 Maternal care for other known or suspected poor fetal growth, third trimester, not applicable or unspecified (principal)
CPT/HCPCS: 59025

== ENCOUNTER 2024-01-08 14:48 | Observation (INO) | payer OTHER, SELFPAY ==
[2024-01-08] VITALS (7 sets, daily range): BP systolic 120–143; BP diastolic 69–85; PULSE 68–81
--- NOTE | 2024-01-08 14:52 | US_ITS ---
[address] [address] Patient Name: YANETH BROWNLEE MRN: [id number] date: 1990 Sex: F Assigned Patient Location: [facility] Current Patient Location: [facility] Accession/Order Number: [id number] Exam Date: 01/08/2024 15:20 Report Date: 01/08/2024 16:23 At the request of: DINH MESSER Procedure: US OB umbilical artery EXAMINATION: US OB umbilical artery HISTORY: induced hypertension COMPARISON: No relevant comparison available. TECHNIQUE: Duplex Doppler evaluation of the umbilical arteries. FINDINGS: The umbilical arteries: 2 presentation: Cephalic Placenta: Posterior Heart rate: 130 bpm Proximal umbilical artery PSV/EDV: 134/37 cm/s. Resistive index 0.72. Ratio 3.6 Mid umbilical artery PSV/EDV: 84/35 cm/s. Resistive index 0.58. Ratio 2.4 Distal umbilical artery PSV/EDV: 75/24 cm/s. Resistive index 0.68. Ratio 3.1 Forward flow identified throughout diastole Clinical age: 33 weeks 6 days US/US OB umbilical artery IMPRESSION: Slightly elevated systolic to diastolic ratio of the proximal umbilical artery, nonspecific Otherwise normal exam Umbilical Artery: Class 0 = Normal umbilical artery blood velocity Class I = increased RI or PI, but still forward flow in diastole Class II = Absent end diastolic flow (AEDF) Class III = Reversal of end diastolic flow (REDF) Resistive Index (RI)<1 Systolic/Diastolic ratio (S:D): An S:D ratio of 2-3 after 34 wks is normal Systolic/Diastolic ratio (S:D): Age 16: 3.01 for the 10th percentile, 4.25 for the 50th percentile, 6.07 for the 90th percentile Age 20: 3.16 for the 10th percentile, 4.04 for the 50th percentile, 5.24 for the 90th percentile Age 24: 2.70 for the 10th percentile, 3.50 for the 50th percentile, 4.75 for the 90th percentile Age 28: 2.41 for the 10th percentile, 3.02 for the 50th percentile, 3.97 for the 90th percentile Age 30: 2.43 for the 10th percentile, 3.04 for the 50th percentile, 3.80 for the 90th percentile Age 32: 2.27 for the 10th percentile, 2.73 for the 50th percentile, 3.57 for the 90th percentile Age 34: 2.08 for the 10th percentile, 2.52 for the 50th percentile, 3.41 for the 90th percentile Age 36: 1.96 for the 10th percentile, 2.35 for the 50th percentile, 3.15 for the 90th percentile Age 38: 1.89 for the 10th percentile, 2.24 for the 50th percentile, 3.10 for the 90th percentile Age 40: 1.88 for the 10th percentile, 2.22 for the 50th percentile, 2.68 for the 90th percentile Age 41: 1.93 for the 10th percentile, 2.21 for the 50th percentile, 2.55 for the 90th percentile Age 42: 1.91 for the 10th percentile, 2.51 for the 50th percentile, 3.21 for the 90th percentile Uteroplacental Artery: Resistive Index (RI): Normal=<0.55 High Resistance=Bilateral notches (after 26 wks) and RI>0.55. Unilateral notches (after 26 wks) and RI>0.65 Systolic/Diastolic ratio (S:D) = 2-3 is normal after 32 weeks. Electronically authenticated by: BRANDI ANN Date: 01/08/2024 16:23
--- NOTE | 2024-01-08 14:52 | US_ITS ---
[address] [address] Patient Name: YANETH BROWNLEE MRN: [id number] date: 1990 Sex: F Assigned Patient Location: [facility] Current Patient Location: [facility] Accession/Order Number: [id number] Exam Date: 01/08/2024 15:20 Report Date: 01/08/2024 16:21 At the request of: DINH MESSER Procedure: US OB BPP w non-stress EXAMINATION: US OB BPP w non-stress HISTORY: induced hypertension COMPARISON: No relevant comparison available. TECHNIQUE: Ultrasound biophysical profile was performed in the radiology department. FINDINGS: BREATHING MOVEMENTS: 2.0 GROSS BODY MOVEMENTS: 2.0 TONE: 2.0 QUALITATIVE AMNIOTIC FLUID VOLUME: 2.0 PRESENTATION: CEPHALIC HEART RATE: 156.1 bpm H.B./min AMNIOTIC FLUID VOLUME: 10.2 cm cm GESTATIONAL AGE: 33 weeks 6 days CONCLUSION: Total biophysical profile score: 8.0 Electronically authenticated by: BRANDI ANN Date: 01/08/2024 16:21
--- OUTSIDE RECORDS SUMMARY | 2024-01-08 15:14 | XMS_ITS | CCD ---
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 B1 <1:10 Normal <1:10 [facility] Comment on above: Performed By: #### C MVG, LUPPRO, AT3A, PROCAC, PROSAC, CMVM, CMIS, TOXOG, TOXOM, HOCYS #### [facility] [address] [place] [address] Hr Internship: Tanvir Macias MD #### APTMUT, AF5MUT, AMTHFR, ACOXA9, APARVP, ACOXAB #### [facility] [address] [place], [place] [id number] Hr Internship: MD Tatum Santoyo. B2 1:20 Normal <1:10 [facility] Comment on above: Performed By: #### C MVG, LUPPRO, AT3A, PROCAC, PROSAC, CMVM, CMIS, TOXOG, TOXOM, HOCYS #### [facility] [address] [place] [address] Hr Internship: Tanvir Macias MD #### APTMUT, AF5MUT, AMTHFR, ACOXA9, APARVP, ACOXAB #### [facility] [address], [place] [id number] Hr Internship: MD Tatum Santoyo. B3 1:10 Normal <1:10 [facility] Comment on above: Performed By: #### C MVG, LUPPRO, AT3A, PROCAC, PROSAC, CMVM, CMIS, TOXOG, TOXOM, HOCYS #### [facility] [address] [place] [address] Hr Internship: Tanvir Macias MD #### APTMUT, AF5MUT, AMTHFR, ACOXA9, APARVP, ACOXAB #### [facility] [address], [place] [id number] Hr Internship: MD Tatum Santoyo B4 1:320 Abnormal <1:10 [facility] Comment on above: Performed By: #### C MVG, LUPPRO, AT3A, PROCAC, PROSAC, CMVM, CMIS, TOXOG, TOXOM, HOCYS #### [facility] [address] [place] [address] Hr Internship: Tanvir Macias MD #### APTMUT, AF5MUT, AMTHFR, ACOXA9, APARVP, ACOXAB #### [facility] [address] [place] [address] Hr Internship: MD Tatum Santoyo. B5 <1:10 Normal <1:10 [facility] Comment on above: Performed By: #### C MVG, LUPPRO, AT3A, PROCAC, PROSAC, CMVM, CMIS, TOXOG, TOXOM, HOCYS #### [address] [id number] Hr Internship: Tanvir Macias MD #### APTMUT, AF5MUT, AMTHFR, ACOXA9, APARVP, ACOXAB #### [address] [address] Hr Internship: MD Tatum Santoyo. B6 <1:10 Normal <1:10 [facility] Comment on above: Result Comment: (NOT E) INTERPRETIVE INFORMATION: Coxsackie B Virus Single positive antibody titers of greater than or equal to 1:80 may indicate past or current infection. Sero- conversion or an increase in titers between acute and convalescent sera of at least fourfold is considered strong evidence of current or recent infection. Performed By: [facility] [address] [place] [address] Shot Blaster: Nadeem Mcarthur MD, PhD CLIA Number: [id number] Performed By: #### C MVG, LUPPRO, AT3A, PROCAC, PROSAC, CMVM, CMIS, TOXOG, TOXOM, HOCYS #### [address] [id number] Hr Internship: Tanvir Macias MD #### APTMUT, AF5MUT, AMTHFR, ACOXA9, APARVP, ACOXAB #### [address] [id number] Hr Internship: Enrique Arthur MD Factor V Mutationon 10-22-19 24 F 5 SPECIMEN Whole Blood Normal [facility] Comment on above: Performed By: #### C MVG, LUPPRO, AT3A, PROCAC, PROSAC, CMVM, CMIS, TOXOG, TOXOM, HOCYS #### [facility] [address] [place] [address] Hr Internship: Tanvir Macias MD #### APTMUT, AF5MUT, AMTHFR, ACOXA9, APARVP, ACOXAB #### [facility] [address] [place] [address] Hr Internship: Enrique Arthur MD FACTOR 5 MUTATION Negative Normal [facility] Comment on above: Result Comment: (NOT E) Indication for testing: Assess genetic risk for thrombosis. NEGATIVE: The factor V Leiden variant, c.1601G>A; p.Wwy330Mvb, was not detected. This does not exclude [...] function in the F5 gene variant c.1601G>A (p.Ikq025Ukq). Legacy nomenclature: [id number] (1691G>A) CLINICAL SENSITIVITY: 20-50 percent of individuals with an isolated VTE have the FVL variant. METHODOLOGY: Polymerase chain reaction and fluorescence monitoring. ANALYTICAL SENSITIVITY AND SPECIFICITY: 99 percent. LIMITATIONS: Diagnostic errors can occur due to rare sequence variations. F5 gene mutations, other than p.Scu811Vgi, will not be detected. This test was developed and its performance characteristics determined by [facility]. It has not been cleared or approved by the US Food and Drug Administration. This test was performed in a CLIA certified laboratory and is intended for clinical purposes. Counseling and informed consent are recommended for genetic testing. Consent forms are available online. Performed By: [facility] [address] [place] [address] Shot Blaster: Nadeem Mcarthur MD, PhD CLIA Number: [id number] Performed By: #### C MVG, LUPPRO, AT3A, PROCAC, PROSAC, CMVM, CMIS, TOXOG, TOXOM, HOCYS #### [place] [address] Hr Internship: Tanvir Macias MD #### APTMUT, AF5MUT, AMTHFR, ACOXA9, APARVP, ACOXAB #### [place] [id number] Hr Internship: Enrique Arthur MD Coxsackie A9 Titeron 024 Coxsackie A9 Titer <1:8 Normal <1:8 [facility] Comment on above: Result Comment: (NOT E) INTERPRETIVE INFORMATION: Coxsackie A Serotype 9 Titer Single positive antibody titers of greater than 1:32 may indicate past or current infection. Seroconversion or an increase in titers between acute and convalescent sera of at least fourfold is considered strong evidence of current or recent infection. Performed By: [facility] [address] [place], [place] [id number] Shot Blaster: Nadeem Mcarthur MD, PhD CLIA Number: [id number] Performed By: #### C MVG, LUPPRO, AT3A, PROCAC, PROSAC, CMVM, CMIS, TOXOG, TOXOM, HOCYS #### [address] [address] Hr Internship: Tanvir Macias MD #### APTMUT, AF5MUT, AMTHFR, ACOXA9, APARVP, ACOXAB #### [facility] [address] [place] [address] Hr Internship: Enrique Arthur MD MTHFR Gene Mutationon 2023 MTHFR 1286 A>C Mut Negative Normal [facility] Comment on above: Performed By: #### C MVG, LUPPRO, AT3A, PROCAC, PROSAC, CMVM, CMIS, TOXOG, TOXOM, HOCYS #### [address] [address] Hr Internship: Tanvir Macias MD #### APTMUT, AF5MUT, AMTHFR, ACOXA9, APARVP, ACOXAB #### [facility] [address] [place], [place] [id number] Hr Internship: Enrique Arthur MD MTHFR 655C>T Mut Heterozygous Normal [facility] Comment on above: Performed By: #### C MVG, LUPPRO, AT3A, PROCAC, PROSAC, CMVM, CMIS, TOXOG, TOXOM, HOCYS #### [address] [address] Hr Internship: Tanvir Macias MD #### APTMUT, AF5MUT, AMTHFR, ACOXA9, APARVP, ACOXAB #### [facility] [address] [place], [place] [id number] Hr Internship: Enrique Arthur MD MTHFR Interpretation See Note Normal [facility] Comment on above: Result Comment: (NOT E) Indication for testing: Determine genetic contribution to hyperhomocysteinemia. Heterozygous MTHFR c.665C>T: One copy of the MTHFR variant c.665C>T (previously designated C677T) was detected; the c.1286A>C (previously designated S3066F) variant was not identified. The common variant [...] has an effect on cardiovascular disease. The [employer] Practice Guidelines indicate [...] a contributing factor to hyperhomocysteinemia. Variants Tested: c.665C>T(p.Loo840Sce) and c.1286A>C(p.Hqe313Raj). (legacy names C677T and U2646R, respectively). Clinical Sensitivity: Undefined; hyperhomocysteinemia is caused [...] developed and its performance characteristics determined by [facility]. It has not been cleared or approved by the [place] Food and Drug Administration. This test was performed in a CLIA certified laboratory and is intended for clinical purposes. Counseling and informed consent are recommended for genetic testing. Consent forms are available online. Performed By: [facility] [address] [place], [place] [id number] Shot Blaster: Nadeem Mcarthur MD, PhD CLIA Number: [id number] Performed By: #### C MVG, LUPPRO, AT3A, PROCAC, PROSAC, CMVM, CMIS, TOXOG, TOXOM, HOCYS #### [facility] [address] [place] [address] Hr Internship: Tanvir Macias MD #### APTMUT, AF5MUT, AMTHFR, ACOXA9, APARVP, ACOXAB #### [facility] [address] [place] [address] Hr Internship: Enrique Arthur MD MTHFR SPECIMEN Whole Blood Normal [facility] Comment on above: Performed By: #### C MVG, LUPPRO, AT3A, PROCAC, PROSAC, CMVM, CMIS, TOXOG, TOXOM, HOCYS #### [facility] [address] [place] [address] Hr Internship: Tanvir Macias MD #### APTMUT, AF5MUT, AMTHFR, ACOXA9, APARVP, ACOXAB #### [facility] [address] [place], [place] [id number] Hr Internship: Enrique Arthur MD PT Mutation [id number] 10-21-19 24 PT [id number] VARIANT Negative Normal [facility] Comment on above: Result Comment: (NOT E) Indication for testing: Assess genetic risk for thrombosis. NEGATIVE: The Factor II, prothrombin M82748X mutation, was not detected. Other causes of [...] Quintana, Ph.D. BACKGROUND INFORMATION: Prothrombin (F2) c.*97G>A (U56822B) Pathogenic Variant CHARACTERISTICS: The Factor II, c.*97G>A (G65125F) pathogenic variant is a common genetic risk [...] CAUSE: Homozygosity or heterozygosity for F2 c.*97G>A (V70969R). PATHOGENIC VARIANT TESTED: F2 c.*97G>A (H63301O). CLINICAL SENSITIVITY FOR VENOUS THROMBOSIS: Approximately 10 percent. METHODOLOGY: Polymerase chain reaction and fluorescence monitoring. ANALYTICAL SENSITIVITY AND SPECIFICITY: 99 percent. LIMITATIONS: Diagnostic errors can occur due to rare sequence variations. F2 gene variants, other than c.*97G>A (I58044B), will not be detected. This test was developed and its performance characteristics determined by [facility]. It has not been cleared or approved by the US Food and Drug Administration. This test was performed in a CLIA certified laboratory and is intended for clinical purposes. Counseling and informed consent are recommended for genetic testing. Consent forms are available online. Performed By: [facility] [address] [place] [address] Shot Blaster: Nadeem Mcarthur MD, PhD CLIA Number: [id number] Performed By: #### C MVG, LUPPRO, AT3A, PROCAC, PROSAC, CMVM, CMIS, TOXOG, TOXOM, HOCYS #### [address] [address] Hr Internship: Tanvir Macias MD #### APTMUT, AF5MUT, AMTHFR, ACOXA9, APARVP, ACOXAB #### [facility] [address] [place] [id number] Hr Internship: Enriqeu Arthur MD PT PCR SPECIMEN Whole Blood Normal [facility] Comment on above: Performed By: #### C MVG, LUPPRO, AT3A, PROCAC, PROSAC, CMVM, CMIS, TOXOG, TOXOM, HOCYS #### [facility] [place], [place] [id number] Hr Internship: Tanvir Macias MD #### APTMUT, AF5MUT, AMTHFR, ACOXA9, APARVP, ACOXAB #### [facility] [address] [place] [address] Hr Internship: Enrique Arthur MD Parvovirus B19 Panelon 10-21 Parvovirus IgG B19 1.80 IV High <=0.90 [facility] Comment on above: Result Comment: [...] PROSAC, CMVM, CMIS, TOXOG, TOXOM, HOCYS #### [facility] [place] [address] Hr Internship: Tanvir Macias MD #### APTMUT, AF5MUT, AMTHFR, ACOXA9, APARVP, ACOXAB #### [facility] [address] [place], [place] [id number] Hr Internship: Enrique Arthur MD Parvovirus IgM B19 0.12 IV Normal <=0.90 [facility] Comment on above: Result Comment: (NOT E) INTERPRETIVE INFORMATION: Parvovirus B19 Antibody, IgM EFFECTIVE 07/04/2023 REFERENCE INTERVAL CHANGE Due to reagent kit cloth cutter recall, an alternate kit has been validated and implemented by [facility]. The following Reference Interval applies to [...] levels of specific IgM antibodies. Performed By: [facility] [address] [place] [address] Shot Blaster: Nadeem Mcarthur MD, PhD CLIA Number: [id number] Performed By: #### C MVG, LUPPRO, AT3A, PROCAC, PROSAC, CMVM, CMIS, TOXOG, TOXOM, HOCYS #### [facility] [place] [address] Hr Internship: Tanvir Macias MD #### APTMUT, AF5MUT, AMTHFR, ACOXA9, APARVP, ACOXAB #### [facility] [address] [place] [address] Hr Internship: Enrique Arthur MD Antithrombin III [place] 10-18 Antithrombin III Act 106 % Normal 83-122 [facility] Comment on above: Result Comment: Patients receiving Hirudin may have a falsely decreased Antitrombin III Activity. Performed By: #### C MVG, LUPPRO, AT3A, PROCAC, PROSAC, CMVM, CMIS, TOXOG, TOXOM, HOCYS #### [facility] [address] [place] [address] [id number] Hr Internship: Tanvir Macias MD #### APTMUT, AF5MUT, AMTHFR, ACOXA9, APARVP, ACOXAB #### [facility] [address] [place] [id number] Hr Internship: Enrique Arthur MD Lupus Anticoagulanton 2023 Anticardiolipin IgA 2.4 APL Normal 0.0-14.0 [facility] Comment on above: Result Comment: Reference Range: <14.0 Negative 14.0-20.0 Equivocal >20.0 Positive When results are Equivocal, it is recommended to retest after 4-6 weeks. Performed By: #### C MVG, LUPPRO, AT3A, PROCAC, PROSAC, CMVM, CMIS, TOXOG, TOXOM, HOCYS #### [address] [id number] Hr Internship: Tanvir Macias MD #### APTMUT, AF5MUT, AMTHFR, ACOXA9, APARVP, ACOXAB #### [facility] [address] [place] [address] Hr Internship: Enrique Arthur MD Anticardiolipin IgG 2.8 GPL Normal 0.0-10.0 [facility] Comment on above: Result Comment: Reference Range: <10.0 Negative 10.0-40.0 Equivocal >40.0 Positive Performed By: #### C MVG, LUPPRO, AT3A, PROCAC, PROSAC, CMVM, CMIS, TOXOG, TOXOM, HOCYS #### [address] [id number] Hr Internship: Tanvir Macias MD #### APTMUT, AF5MUT, AMTHFR, ACOXA9, APARVP, ACOXAB #### [facility] [address] [place] [address] Hr Internship: Enrique Arthur MD Anticardiolipin IgM <0.8 Normal 0.0-10.0 [facility] Comment on above: Result Comment: Reference Range: <10.0 Negative 10.0-40.0 Equivocal >40.0 Positive Performed By: #### C MVG, LUPPRO, AT3A, PROCAC, PROSAC, CMVM, CMIS, TOXOG, TOXOM, HOCYS #### [address] [id number] Hr Internship: Tanvir Macias MD #### APTMUT, AF5MUT, AMTHFR, ACOXA9, APARVP, ACOXAB #### [facility] [address] [place], [place] [id number] Hr Internship: Enrique Arthur MD Dilute Austin Viper Negative Normal [facility] Comment on above: Performed By: #### C MVG, LUPPRO, AT3A, PROCAC, PROSAC, CMVM, CMIS, TOXOG, TOXOM, HOCYS #### [facility] [address] [place] [address] Hr Internship: Tanvir Macias MD #### APTMUT, AF5MUT, AMTHFR, ACOXA9, APARVP, ACOXAB #### [facility] [address] [place], [place] [id number] Hr Internship: Enrique Arthur MD Miscellaneouson 10-18-2023 Send Out Report [facility] [id number] Normal [facility] Comment on above: Result Comment: UNIT Y Performed By: #### C MVG, LUPPRO, AT3A, PROCAC, PROSAC, CMVM, CMIS, TOXOG, TOXOM, HOCYS #### [address] [id number] Hr Internship: Tanvir Macias MD #### APTMUT, AF5MUT, AMTHFR, ACOXA9, APARVP, ACOXAB #### [facility] [address] [place] [address] Hr Internship: Enrique Arthur MD Protein C Activityon 024 Protein C Activity 91 % Normal >80 [facility] Comment on above: Result Comment: Patients on [...] PROSAC, CMVM, CMIS, TOXOG, TOXOM, HOCYS #### [facility] [address] [place] [address] [id number] Hr Internship: Tanvir Macias MD #### APTMUT, AF5MUT, AMTHFR, ACOXA9, APARVP, ACOXAB #### [address] [address] Hr Internship: Enrique Arthur MD Protein S Activityon 024 Protein S Activity 79 % Normal 59-130 [facility] Comment on above: Result Comment: Patients on [...] PROSAC, CMVM, CMIS, TOXOG, TOXOM, HOCYS #### [facility] [address] [place] [address] [id number] Hr Internship: Tanvir Macias MD #### APTMUT, AF5MUT, AMTHFR, ACOXA9, APARVP, ACOXAB #### [address] [phone] Hr Internship: Enrique Arthur MD Toxoplasma Ab,IgGon 10-18-19 24 Toxoplasma Ab,IgG 1.2 IU/mL Normal [facility] Comment on above: Result Comment: [...] PROSAC, CMVM, CMIS, TOXOG, TOXOM, HOCYS #### [facility] [address] [place] [address] Hr Internship: Tanvir Macias MD #### APTMUT, AF5MUT, AMTHFR, ACOXA9, APARVP, ACOXAB #### [address] [id number] Hr Internship: Enrique Arthur MD Toxoplasma Ab,IgMon 10-18-19 24 Toxoplasma Ab,IgM 0.56 Index Normal [facility] Comment on above: Result Comment: REFERENCE RANGE: <0.90 NON-REACTIVE 0.90 TO 0.99 INDETERMINANT >=1.00 REACTIVE Performed By: #### C MVG, LUPPRO, AT3A, PROCAC, PROSAC, CMVM, CMIS, TOXOG, TOXOM, HOCYS #### [facility] [address] [place] [address] [id number] Hr Internship: Tanvir Macias MD #### APTMUT, AF5MUT, AMTHFR, ACOXA9, APARVP, ACOXAB #### [facility] [address] [place] [address] Hr Internship: Enrique Arthur MD CMV Ab,IgGon 10-17-2023 CMV Ab,IgG 523.0 High <0.5 [facility] Comment on above: Result Comment: Reference Range: [...] PROSAC, CMVM, CMIS, TOXOG, TOXOM, HOCYS #### [address] [address] Hr Internship: aTnvir Macias MD #### APTMUT, AF5MUT, AMTHFR, ACOXA9, APARVP, ACOXAB #### [facility] [address] [place] [address] Hr Internship: Enrique Arthur MD CMV Ab,IgMon 10-17-2023 CMV Ab,IgM 0.2 Normal <0.7 [facility] Comment on above: Result Comment: Reference Range: [...] PROSAC, CMVM, CMIS, TOXOG, TOXOM, HOCYS #### [facility] [address] [place] [address] Hr Internship: Tanvir Macias MD #### APTMUT, AF5MUT, AMTHFR, ACOXA9, APARVP, ACOXAB #### [facility] [address] [place] [address] Hr Internship: Enrique Arthur MD Homocysteineon 10-17-2023 Homocysteine 5.7 umol/L Normal <15.0 [facility] Comment on above: Performed By: #### C MVG, LUPPRO, AT3A, PROCAC, PROSAC, CMVM, CMIS, TOXOG, TOXOM, HOCYS #### [address] [address] Hr Internship: Tanvir Macias MD #### APTMUT, AF5MUT, AMTHFR, ACOXA9, APARVP, ACOXAB #### [facility] [address] [place] [address] Hr Internship: Enrique Arthur MD Lupus Anticoagulanton 2023 aPTT Coag (Bld) [Time] 27.6 s Normal 23.0-36.5 [facility] Comment on above: Result Comment: IV Heparin Therapy Range: 66.0-92.0 sec Performed By: #### C MVG, LUPPRO, AT3A, PROCAC, PROSAC, CMVM, CMIS, TOXOG, TOXOM, HOCYS #### [address] [address] Hr Internship: Tanvir Macias MD #### APTMUT, AF5MUT, AMTHFR, ACOXA9, APARVP, ACOXAB #### [facility] [address] [place] [address] Hr Internship: Enrique Arthur MD INR Coag (PPP) [Relative time] 1.0 {INR} Normal [facility] Comment on above: Result Comment: Therapeutic Range: Moderate Anticoagulant Intensity: INR = 2.0-3.0 High Anticoagulant Intensity: INR = 2.5-3.5 Performed By: #### C MVG, LUPPRO, AT3A, PROCAC, PROSAC, CMVM, CMIS, TOXOG, TOXOM, HOCYS #### [facility] [address] [place] [address] [id number] Hr Internship: Tanvir Macias MD #### APTMUT, AF5MUT, AMTHFR, ACOXA9, APARVP, ACOXAB #### [facility] [address] [place] [address] Hr Internship: Enrique Arthur MD PT Coag (PPP) [Time] 13.5 s Normal 11.7-14.9 [facility] Comment on above: Performed By: #### C MVG, LUPPRO, AT3A, PROCAC, PROSAC, CMVM, CMIS, TOXOG, TOXOM, HOCYS #### [facility] [address] [place] [address] Hr Internship: Tanvir Macias MD #### APTMUT, AF5MUT, AMTHFR, ACOXA9, APARVP, ACOXAB #### [facility] [address] [place] [address] Hr Internship: Enrique Arthur MD Basic Metabolic Panelon Glucose [Mass/Vol] 97 mg/dL [facility] CBC without diffOrdered By: Mayra Victoria on 07-26-2023 Hematocrit (Bld) [Volume fraction] 34.8 % [facility] Hemoglobin (Bld) [Mass/Vol] 11.3 g/dL [facility] Platelets (Bld) [#/Vol] 292 10*3/uL [facility] Rbc Mcv (Fl) By Automated Count 83.5 [facility] HIV 1&2 AB/AG Screen (P24 AG )on 07-26-2023 HIV 1&2 AB/AG Non-Reactive [facility] Hemoglobin A1con 07-26-2023 HbA1c (Bld) [Mass fraction] 5.0 % 4.0 - 6.0 % [facility] Hepatitis B surface antigeno n 07-26-2023 Hepatitis B Surface Antigen Negative [facility] No Panel InformationOrdered By: Mayra Victoria on 07-26-2023 [facility] Rubella IGG immune statuson 07-26-2023 Rubella immune IgG 5.26 [facility] Syphilis Total(Unknown Syphi lis Status)on 07-26-2023 Syphilis Non-Reactive [facility] TSHon 07-26-2023 TSH Qn 1.99 m[IU]/L [facility] Type and screenon 07-26-2023 Abo/Rh(D) Positive [facility] CBC AUTO DIFFon 07-28-2022 BASO # 0.0 103/ul Normal 0.0-0.1 [facility] Comment on above: Performed By: #### H CVPCRR #### [facility] [address] [place] [address] [address] Carleen Underwood Basophils/100 WBC (Bld) 0.3 % Normal 0.2-2.0 [facility] Comment on above: Performed By: #### H CVPCRR #### [facility] [address] [place] [address] Dr. Carleen Underwood EO # 0.2 103/ul Normal 0.0-0.7 [facility] Comment on above: Performed By: #### H CVPCRR #### [facility] [address] [place] [address] [address] Carleen Underwood Eosinophils/100 WBC (Bld) 1.5 % Normal 0.9-7.0 [facility] Comment on above: Performed By: #### H CVPCRR #### [facility] [address] [place] [address] Dr. Carleen Underwood Erythrocyte distribution width (RBC) [Ratio] 14.9 % Normal 11.0-15.0 [facility] Comment on above: Performed By: #### H CVPCRR #### [facility] [address] [place] [address] [address] Carleen Underwood Hematocrit (Bld) [Volume fraction] 30.7 % Critically low 36.0-48.0 [facility] Comment on above: Performed By: #### H CVPCRR #### [facility] [address] [place] [address] Dr. Carleen Underwood Hemoglobin (Bld) [Mass/Vol] 9.4 g/dL Critically low 12.0-16.0 [facility] Comment on above: Performed By: #### H CVPCRR #### [facility] [address] [place] [address] Dr. Carleen Underwood IG # 0.07 10e3/ul Critically high 0.00-0.03 [facility] Comment on above: Performed By: #### H CVPCRR #### [facility] [address] [place] [address] Dr. Carleen Underwood IG % 0.6 % Critically high 0.0-0.5 [facility] Comment on above: Performed By: #### H CVPCRR #### [facility] [address] [place] [address] Dr. Carleen Underwood LYMPH # 2.7 103/ul Normal 1.2-3.8 [facility] Comment on above: Performed By: #### H CVPCRR #### [facility] [address] [place] [address] Dr. Carleen Underwood Lymphocytes/100 WBC (Bld) 24.1 % Normal 20.5-60.0 [facility] Comment on above: Performed By: #### H CVPCRR #### [facility] [address] [place] [address] Dr. Carleen Underwood MANUAL DIFF REQ NO Normal [facility] Comment on above: Performed By: #### H CVPCRR #### [facility] [address] [place] [address] Dr. Carleen Underwood MCH (RBC) [Entitic mass] 23.3 pg Critically low 26.7-34.0 [facility] Comment on above: Performed By: #### H CVPCRR #### [facility] [address] [address] [address] Carleen Underwood MCHC (RBC) [Mass/Vol] 30.6 g/dL Normal 29.9-35.2 [facility] Comment on above: Performed By: #### H CVPCRR #### [facility] [address] [place] [address] Dr. Carleen Underwood MCV (RBC) [Entitic vol] 76.2 fL Critically low 81.0-99.0 [facility] Comment on above: Performed By: #### H CVPCRR #### [facility] [address] [place] [address] Dr. Carleen Underwood MONO # 0.7 103/ul Normal 0.3-0.8 [facility] Comment on above: Performed By: #### H CVPCRR #### [facility] [address] [place] [address] Dr. Carleen Underwood Monocytes/100 WBC (Bld) 5.8 % Normal 1.7-12.0 [facility] Comment on above: Performed By: #### H CVPCRR #### [facility] [address] [place] [address] Dr. Carleen Underwood NEUT # 7.6 103/ul Critically high 1.4-6.5 [facility] Comment on above: Performed By: #### H CVPCRR #### [facility] [address] [place] [address] Dr. Carleen Underwood Neutrophils/100 WBC (Bld) 67.7 % Normal 43.0-75.0 [facility] Comment on above: Performed By: #### H CVPCRR #### [facility] [address] [address] [address] Carleen Underwood Platelet mean volume (Bld) [Entitic vol] 11.1 fL Normal 9.5-13.5 [facility] Comment on above: Performed By: #### H CVPCRR #### [facility] [address] [address] [address] Carleen Underwood PLT 242 103/ul Normal 150-450 [facility] Comment on above: Performed By: #### H CVPCRR #### [facility] [address] [place] [address] Dr. Carleen Underwood RBC 4.03 106/ul Critically low 4.20-5.40 [facility] Comment on above: Performed By: #### H CVPCRR #### [facility] [address] [place] [address] Dr. Carleen Underwood WBC 11.2 103/ul Critically high 4.0-11.0 [facility] Comment on above: Performed By: #### H CVPCRR #### [facility] [address] [place] [address] Dr. Carleen Underwood CBC AUTO DIFFon 07-27-2022 BASO # 0.0 103/ul Normal 0.0-0.1 [facility] Comment on above: Performed By: #### G LU1HR #### [facility] [address] [place] [address] Dr. Carleen Underwood Basophils/100 WBC (Bld) 0.5 % Normal 0.2-2.0 [facility] Comment on above: Performed By: #### G LU1HR #### [facility] [address] [place] [address] Dr. Carleen Underwood EO # 0.1 103/ul Normal 0.0-0.7 [facility] Comment on above: Performed By: #### G LU1HR #### [facility] [address] [place] [address] Dr. Carleen Underwood Eosinophils/100 WBC (Bld) 1.2 % Normal 0.9-7.0 [facility] Comment on above: Performed By: #### G LU1HR #### [facility] [address] [place] [address] Dr. Carleen Underwood Erythrocyte distribution width (RBC) [Ratio] 14.9 % Normal 11.0-15.0 [facility] Comment on above: Performed By: #### G LU1HR #### [facility] [address] [place] [address] Dr. Carleen Underwood Hematocrit (Bld) [Volume fraction] 29.6 % Critically low 36.0-48.0 [facility] Comment on above: Performed By: #### G LU1HR #### [facility] [address] [place] [address] Dr. Carleen Underwood Hemoglobin (Bld) [Mass/Vol] 9.3 g/dL Critically low 12.0-16.0 [facility] Comment on above: Performed By: #### G LU1HR #### [facility] [address] [place] [address] Dr. Carleen Underwood IG # 0.04 10e3/ul Critically high 0.00-0.03 [facility] Comment on above: Performed By: #### G LU1HR #### [facility] [address] [place] [address] Dr. Carleen Underwood IG % 0.5 % Normal 0.0-0.5 [facility] Comment on above: Performed By: #### G LU1HR #### [facility] [address] [place] [address] Dr. Carleen Underwood LYMPH # 2.1 103/ul Normal 1.2-3.8 [facility] Comment on above: Performed By: #### G LU1HR #### [facility] [address] [place] [address] Dr. Carleen Underwood Lymphocytes/100 WBC (Bld) 25.5 % Normal 20.5-60.0 [facility] Comment on above: Performed By: #### G LU1HR #### [facility] [address] [place] [address] Dr. Carleen Underwood MANUAL DIFF REQ NO Normal [facility] Comment on above: Performed By: #### G LU1HR #### [facility] [address] [place] [address] Dr. Carleen Underwood MCH (RBC) [Entitic mass] 23.2 pg Critically low 26.7-34.0 [facility] Comment on above: Performed By: #### G LU1HR #### [facility] [address] [place] [address] Dr. Carleen Underwood MCHC (RBC) [Mass/Vol] 31.4 g/dL Normal 29.9-35.2 [facility] Comment on above: Performed By: #### G LU1HR #### [facility] [address] [place] [address] Dr. Carleen Underwood MCV (RBC) [Entitic vol] 73.8 fL Critically low 81.0-99.0 [facility] Comment on above: Performed By: #### G LU1HR #### [facility] [address] [place] [address] Dr. Carleen Underwood MONO # 0.5 103/ul Normal 0.3-0.8 [facility] Comment on above: Performed By: #### G LU1HR #### [facility] [address] [place] [address] Dr. Carleen Underwood Monocytes/100 WBC (Bld) 6.2 % Normal 1.7-12.0 [facility] Comment on above: Performed By: #### G LU1HR #### [facility] [address] [place] [address] Dr. Carleen Underwood NEUT # 5.4 103/ul Normal 1.4-6.5 [facility] Comment on above: Performed By: #### G LU1HR #### [facility] [address] [place] [address] Dr. Carleen Underwood Neutrophils/100 WBC (Bld) 66.1 % Normal 43.0-75.0 [facility] Comment on above: Performed By: #### G LU1HR #### [facility] [address] [place] [address] Dr. Carleen Underwood Platelet mean volume (Bld) [Entitic vol] 11.3 fL Normal 9.5-13.5 [facility] Comment on above: Performed By: #### G LU1HR #### [facility] [address] [place] [address] Dr. Carleen Underwood PLT 238 103/ul Normal 150-450 [facility] Comment on above: Performed By: #### G LU1HR #### [facility] [address] [place] [address] Dr. Carleen Underwood RBC 4.01 106/ul Critically low 4.20-5.40 [facility] Comment on above: Performed By: #### G LU1HR #### [facility] [address] [place] [address] Dr. Carleen Underwood WBC 8.2 103/ul Normal 4.0-11.0 [facility] Comment on above: Performed By: #### G LU1HR #### [facility] [address] [place] [address] Dr. Carleen Underwood Covid-19 PCR ([facility])on SARS-CoV-2 (COVID-19) RNA HUY+probe Ql (Unsp spec) Not detected Normal NOT DETECTED [facility] Comment on above: Result Comment: When diagnostic [...] for this test is supported by the [place] Supervisor of Health and Human Service's declaration that [...] used). Performed By: #### H CVPCRR #### [facility] [address] [place] [address] Dr. Carleen Underwood DRUG SCREEN RAPID (URINE)on 07-27-2022 AMP Negative Normal NEGATIVE [facility] Comment on above: Performed By: #### G TT3P #### [facility] [address] [place] [address] Dr. Carleen Underwood BAR Negative Normal NEGATIVE [facility] Comment on above: Performed By: #### G TT3P #### [facility] [address] [place] [address] Dr. Carleen Underwood BUP Negative Normal NEGATIVE [facility] Comment on above: Performed By: #### G TT3P #### [facility] [address] [place] [address] Dr. Carleen Underwood BZO Negative Normal NEGATIVE [facility] Comment on above: Performed By: #### G TT3P #### [facility] [address] [place] [address] Dr. Carleen Underwood EMIGDIO Negative Normal NEGATIVE [facility] Comment on above: Performed By: #### G TT3P #### [facility] [address] [place] [address] Dr. Carleen Underwood CUT-OFFS SEE BELOW Normal [facility] Comment on above: Result Comment: [...] ng/mL Performed By: #### G TT3P #### [facility] [address] [place] [address] Dr. Carleen Underwood DRUG CUT HEADER DRUG CLASS TEST SYST EM CUT-OFF CONCENTRATIONS ARE FOLLOWS: Normal [facility] Comment on above: Performed By: #### G TT3P #### [facility] [address] [place] [address] Dr. Carleen Underwood mAMP Negative Normal NEGATIVE [facility] Comment on above: Performed By: #### G TT3P #### [facility] [address] [place] [address] Dr. Carleen Underwood MTD Negative Normal NEGATIVE [facility] Comment on above: Performed By: #### G TT3P #### [facility] [address] [place] [address] Dr. Carleen Underwood OPI Negative Normal NEGATIVE [facility] Comment on above: Performed By: #### G TT3P #### [facility] [address] [place] [address] Dr. Carleen Underwood OXY Negative Normal NEGATIVE [facility] Comment on above: Performed By: #### G TT3P #### [facility] [address] [place] [address] Dr. Carleen Underwood PCP Negative Normal NEGATIVE [facility] Comment on above: Performed By: #### G TT3P #### [facility] [address] [place] [address] Dr. Carleen Underwood PPX Negative Normal NEGATIVE [facility] Comment on above: Performed By: #### G TT3P #### [facility] [address] [place] [address] Dr. Carleen Underwood TCA Negative Normal NEGATIVE [facility] Comment on above: Performed By: #### G TT3P #### [facility] [address] [place] [address] Dr. Carleen Underwood THC Negative Normal NEGATIVE [facility] Comment on above: Performed By: #### G TT3P #### [facility] [address] [place] [address] Dr. Carleen Underwood TYPE AND SCREENon 07-27-2022 TYPE AND SCREEN Negative Normal [facility] Comment on above: Performed By: #### G TT3P #### [facility] [address] [place] [address] Dr. Carleen Underwood US PREG AMNIOTIC FLUID [...] FOUZIA CALERO Date: 2022-07-12 16:24 Normal [facility] US PREG BIOPHY W NON STRESSo n [...] BRANDI ANN Date: 2022-07-09 16:35 Normal [facility] US PREG BIOPHY W NON STRESSo n [...] FOUZIA CALERO Date: 2022-07-06 17:28 Normal [facility] GROUP B STREP CULTUREon 06-26 S. agalactiae Ag Ql (Unsp spec) Culture Observations: NEGATIVE FOR GROUP B STREPTOCOCCUS. Normal [facility] Comment on above: Performed By: #### G TT3P #### [facility] [address] [place] [address] Dr. Carleen Underwood US PREG GROWTHon 07-05-2022 [...] Marroquin was notified of these findings by general manager farm at time of imaging. 3. Biparietal diameter is at 8th percentile. Electronically authenticated by: FOUZIA CALREO Date: 2022-07-05 16:58 Normal [facility] US PREG GROWTHon 06-11-2022 US [...] FOUZIA CALERO Date: 2022-06-11 16:22 Normal [facility] US PREG INCOMPLETE ANATOMYon 06-11-2022 US PREG [...] FOUZIA CALERO Date: 2022-06-11 16:20 Normal [facility] US PREG INCOMPLETE ANATOMYon 05-14-2022 US PREG [...] FOUZIA CALERO Date: 2022-05-14 17:15 Normal [facility] GTT 3 HR PREGon 04-24-2022 Glucose [Mass/Vol] 91 mg/dL Normal 74-106 [facility] Comment on above: Performed By: #### G TT3P #### [facility] [address] [address] [address] Carleen Underwood Glucose [Mass/Vol] 141 mg/dL Normal [facility] Comment on above: Performed By: #### G TT3P #### [facility] [address] [address] [address] Carleen Underwood Glucose [Mass/Vol] 103 mg/dL Normal [facility] Comment on above: Performed By: #### G TT3P #### [facility] [address] [address] [address] Carleen Underwood Glucose [Mass/Vol] 75 mg/dL Normal [facility] Comment on above: Performed By: #### G TT3P #### [facility] [address] [address] [address] Carleen Underwood US PREG INCOMPLETE ANATOMYon [...] cervical os Normal ventricular outflow tracts Normal [facility] PAP ACOG PANEL 2: 30 to 65on 04-20-2022 . . Normal [facility] Comment on above: Result Comment: Perf ormed at: WB Performed By: #### [id number] #### [facility] [address] [address] [address] Carleen Underwood Age Gdln ACOG Testing [facility] Comment on above: Performed By: #### [id number] #### [facility] [address] [address] [address] Carleen Underwood DIAGNOSIS: Comment Normal [facility] Comment on above: Result Comment: NEGA TIVE FOR INTRAEPITHELIAL LESION OR MALIGNANCY. Performed at: WB Performed By: #### [id number] #### [facility] [address] [address] [address] Carleen Underwood HPV Aptima Negative Normal Negative [facility] Comment on above: Result Comment: This nucleic acid amplification test detects fourteen high-risk HPV types (16,18,31,33,35,39,45,51,52,56,58,59,66,68) without differentiation. Performed at: =G Performed By: #### [id number] #### [facility] [address] [address] [address] Carleen Underwood Methodology: Comment Normal [facility] Comment on above: Result Comment: This liquid based ThinPrep(R) pap test was screened with the use of an image guided system. Performed at: WB Performed By: #### [id number] #### [facility] [address] [address] [address] Carleen Underwood Note: Comment Normal [facility] Comment on above: Result Comment: The Pap smear is a screening test designed to aid in the detection of premalignant and malignant conditions of the uterine cervix. It is not a diagnostic procedure and should not be used as the sole means of detecting cervical cancer. Both false-positive and false-negative reports do occur. . Performed at: WB Performed By: #### [id number] #### [facility] [address] [place] [address] Dr. Carleen Underwood Performed by: Comment Normal [facility] Comment on above: Result Comment: Carol Aguilar, Trench Digger Performed at: WB Performed By: #### [id number] #### [facility] [address] [place] [address] Dr. Carleen Underwood Specimen adequacy: Comment Normal [facility] Comment on above: Result Comment: Sati sfactory for evaluation. No endocervical component is identified. Performed at: WB Performed By: #### [id number] #### [facility] [address] [place] [address] Dr. Carleen Underwood CHLAMYDIA/GONOCOCCUS HUY (SW AB/URINE/PAPon 04-19-2022 Chlamydia trachomatis, HUY Negative Normal Negative [facility] Comment on above: Performed By: #### H CVPCRR #### [facility] [address] [place] [address] Dr. Carleen Underwood Neisseria gonorrhoeae, HUY Negative Normal Negative [facility] Comment on above: Performed By: #### H CVPCRR #### [facility] [address] [place] [address] Dr. Carleen Underwood VAGINITIS/VAGINOSIS DNA PROB True 04-19-2022 Priya species Negative Normal Negative [facility] Comment on above: Performed By: #### G LU1HR #### [facility] [address] [place] [address] Dr. Carleen Underwood Gardnerella vaginalis Negative Normal Negative [facility] Comment on above: Performed By: #### G LU1HR #### [facility] [address] [place] [address] Dr. Carleen Underwood Trichomonas vaginalis Negative Normal Negative [facility] Comment on above: Performed By: #### G LU1HR #### [facility] [address] [place] [address] Dr. Carleen Underwood GLUCOSE - 1HRon 04-17-2022 Glucose [Mass/Vol] 150 mg/dL Critically high 74-106 T [facility] Comment on above: Performed By: #### G LU1HR #### [facility] [address] [place] [address] Dr. Carleen Underwood HEMOGRAM AND PLATELon 2021 Hematocrit (Bld) [Volume fraction] 31.9 % Critically low 36.0-48.0 [facility] Comment on above: Performed By: #### H H #### [facility] [address] [place] [address] Dr. Carleen Underwood Hemoglobin (Bld) [Mass/Vol] 10.3 g/dL Critically low 12.0-16.0 [facility] Comment on above: Performed By: #### H H #### [facility] [address] [place] [address] Dr. Carleen Underwood MCH (RBC) [Entitic mass] 26.6 pg Critically low 26.7-34.0 [facility] Comment on above: Performed By: #### H H #### [facility] [address] [place] [address] Dr. Carleen Underwood MCHC (RBC) [Mass/Vol] 32.3 g/dL Normal 29.9-35.2 [facility] Comment on above: Performed By: #### H H #### [facility] [address] [place] [address] Dr. Carleen Underwood MCV (RBC) [Entitic vol] 82.4 fL Normal 81.0-99.0 [facility] Comment on above: Performed By: #### H H #### [facility] [address] [place] [address] Dr. Carleen Underwood PLT 233 103/ul Normal 150-450 [facility] Comment on above: Performed By: #### H H #### [facility] [address] [place] [address] Dr. Carleen Underwood RBC 3.87 106/ul Critically low 4.20-5.40 [facility] Comment on above: Performed By: #### H H #### [facility] [address] [address] [address] Carleen Underwood WBC 8.5 103/ul Normal 4.0-11.0 [facility] Comment on above: Performed By: #### H H #### [facility] [address] [address] [address] Carleen Underwood AFP MATERNAL FOR SPINA BIFID Aon 03-22-2022 AFP MoM 1.08 Normal [facility] Comment on above: Performed By: #### H CVPCRR #### [facility] [address] [address] [address] Carleen Underwood AFP Value 43.1 ng/mL Normal [facility] Comment on above: Performed By: #### H CVPCRR #### [facility] [address] [address] [address] Carleen Underwood AFP, Serum for Spina Bifida Report Normal [facility] Comment on above: Performed By: #### H CVPCRR #### [facility] [address] [address] [address] Carleen Underwood Comment Comment Normal [facility] Comment on above: Result Comment: Re Quick, Ph.D., [facility] Director . References: Available Upon Request. . Multiples Of Median Cutoffs For AFP Elevations Hopson 2.5 Black 2.8 IDD 2.0 Twins 4.5 Abbreviation Definitions IDD - Insulin Dep Diabetes OSBR - Open Spina Bifida Risk . For further inquiries contact [employer] [facility] at [phone]. . This test was developed and its performance characteristics determined by [employer]. It has not been cleared or approved by the Food and Drug Administration. Performed By: #### H CVPCRR #### [facility] [address] [place] [address] Dr. Carleen Underwood Gest Age Collection Date 19.4 weeks Normal [facility] Comment on above: Performed By: #### H CVPCRR #### [facility] [address] [place] [address] Dr. Carleen Underwood Gestat, Age Based on LMP Normal [facility] Comment on above: Result Comment: Reca lculations are not recommended when gestational dating by LMP and ultrasound are within 10 days. Performed By: #### H CVPCRR #### [facility] [address] [address] [address] Carleen Underwood Insulin Dep Diabetes No Normal [facility] Comment on above: Performed By: #### H CVPCRR #### [facility] [address] [address] [address] Carleen Underwood Interpretation Comment Normal [facility] Comment on above: Result Comment: [...] Customer Services to discuss available options. The [employer] recommends amniocentesis be offered to women age 35 and older. Performed By: #### H CVPCRR #### [facility] [address] [place] [address] Dr. Carleen Underwood [age] [facility] [facility] Comment on above: Performed By: #### H CVPCRR #### [facility] [address] [place] [address] Dr. Carleen Underwood Multiple Gestation No Normal [facility] Comment on above: Performed By: #### H CVPCRR #### [facility] [address] [place] [address] Dr. Carleen Underwood OSBR Risk 1 [place] 9540 [facility] Comment on above: Performed By: #### H CVPCRR #### [facility] [address] [place] [address] Dr. Carleen Underwood PDF . Normal [facility] Comment on above: Performed By: #### H CVPCRR #### [facility] [address] [place] [address] Dr. Carleen Underwood Race Normal [facility] Comment on above: Performed By: #### H CVPCRR #### [facility] [address] [address] [address] Carleen Underwood Test Results: Negative Normal [facility] Comment on above: Performed By: #### H CVPCRR #### [facility] [address] [address] [address] Carleen Underwood US PREG ANATOMY SINGLEon [...] by: FOUZIA CALERO Date: 2022-03-19 17:04 Normal [facility] GLUCOSE - 1HRon 02-14-2022 Glucose [Mass/Vol] 107 mg/dL Critically high 74-106 T [facility] Comment on above: Performed By: #### H CVPCRR #### [facility] [address] [place] [address] Dr. Carleen Underwood HEP B SURFACE ANTIGEN SCREEN on 01-13-2022 HBsAg Screen Negative Normal Negative [facility] Comment on above: Performed By: #### H BSANS #### [facility] [address] [address] [address] Carleen Underwood HEPATITIS C VIRUS AB W/ REFL EX QUANTon 01-13-2022 HCV AB <0.1 Normal 0.0-0.9 [facility] Comment on above: Performed By: #### H CVPCRR #### [facility] [address] [place] [address] Dr. Carleen Underwood Interpretation: Comment Normal [facility] Comment on above: Result Comment: Nega tive Not infected with HCV, unless recent infection is suspected or other evidence exists to indicate HCV infection. Performed By: #### H CVPCRR #### [facility] [address] [address] [address] Carleen Underwood HIV 1 AND 2 WITH REFLEXon HIV Screen 4th Generation wRfx Non-Reactive Normal Non Reactive [facility] Comment on above: Result Comment: HIV Negative HIV-1/HIV-2 antibodies and HIV-1 p24 antigen were NOT detected. There is no laboratory evidence of HIV infection. Performed By: #### G LU1HR #### [facility] [address] [place] [address] Dr. Carleen Underwood RPR QUANTon 01-13-2022 Rapid Plasma Reagin, Quant Non-Reactive Normal NonRea<1:1 [facility] Comment on above: Result Comment: Plea se Note: This test does not meet current guidelines for screening and diagnosis of syphilis. This test is intended for following treatment response in patients being treated for syphilis infection. To screen for syphilis infection, a reflex cascade that includes both RPR and a treponema-specific assay should be utilized, such as Treponema pallidum (Syphilis) Screening [place] (337704) or Rapid Plasma Reagin (RPR) Test With Reflex to Quantitative RPR and Confirmatory Treponema pallidum Antibodies (721223). Performed By: #### H CVPCRR #### [facility] [address] [place] [address] Dr. Carleen Underwood RUBELLA AB IGGon 01-13-2022 Rubella Antibodies, IgG 4.86 index Normal Immune >0.99 [facility] Comment on above: Result Comment: Non- immune <0.90 Equivocal 0.90 - 0.99 Immune >0.99 Performed By: #### R UBIGG #### [facility] [address] [place] [address] Dr. Carleen Underwood CBC AUTO DIFFon 01-12-2022 BASO # 0.0 103/ul Normal 0.0-0.1 [facility] Comment on above: Performed By: #### C BC #### [facility] [address] [place] [address] Dr. Carleen Underwood Basophils/100 WBC (Bld) 0.4 % Normal 0.2-2.0 [facility] Comment on above: Performed By: #### C BC #### [facility] [address] [place] [address] Dr. Carleen Underwood EO # 0.1 103/ul Normal 0.0-0.7 [facility] Comment on above: Performed By: #### C BC #### [facility] [address] [place] [address] Dr. Carleen Underwood Eosinophils/100 WBC (Bld) 1.1 % Normal 0.9-7.0 [facility] Comment on above: Performed By: #### C BC #### [facility] [address] [place] [address] Dr. Carleen Underwood Erythrocyte distribution width (RBC) [Ratio] 14.5 % Normal 11.0-15.0 [facility] Comment on above: Performed By: #### C BC #### [facility] [address] [place] [address] Dr. Carleen Underwood Hematocrit (Bld) [Volume fraction] 35.8 % Critically low 36.0-48.0 [facility] Comment on above: Performed By: #### C BC #### [facility] [address] [place] [address] Dr. Carleen Underwood Hemoglobin (Bld) [Mass/Vol] 11.2 g/dL Critically low 12.0-16.0 [facility] Comment on above: Performed By: #### C BC #### [facility] [address] [place] [address] Dr. Carleen Underwood IG # 0.02 10e3/ul Normal 0.00-0.03 [facility] Comment on above: Performed By: #### C BC #### [facility] [address] [place] [address] Dr. Carleen Underwood IG % 0.4 % Normal 0.0-0.5 [facility] Comment on above: Performed By: #### C BC #### [facility] [address] [place] [address] Dr. Carleen Underwood LYMPH # 1.6 103/ul Normal 1.2-3.8 [facility] Comment on above: Performed By: #### C BC #### [facility] [address] [place] [address] Dr. Carleen Underwood Lymphocytes/100 WBC (Bld) 27.9 % Normal 20.5-60.0 [facility] Comment on above: Performed By: #### C BC #### [facility] [address] [place] [address] Dr. Carleen Underwood MANUAL DIFF REQ NO Normal [facility] Comment on above: Performed By: #### C BC #### [facility] [address] [place] [address] Dr. Carleen Underwood MCH (RBC) [Entitic mass] 26.1 pg Critically low 26.7-34.0 [facility] Comment on above: Performed By: #### C BC #### [facility] [address] [place] [address] Dr. Carleen Underwood MCHC (RBC) [Mass/Vol] 31.3 g/dL Normal 29.9-35.2 [facility] Comment on above: Performed By: #### C BC #### [facility] [address] [address] [address] Carleen Underwood MCV (RBC) [Entitic vol] 83.4 fL Normal 81.0-99.0 [facility] Comment on above: Performed By: #### C BC #### [facility] [address] [address] [address] Carleen Underwood MONO # 0.4 103/ul Normal 0.3-0.8 [facility] Comment on above: Performed By: #### C BC #### [facility] [address] [place] [address] Dr. Carleen Underwood Monocytes/100 WBC (Bld) 6.2 % Normal 1.7-12.0 [facility] Comment on above: Performed By: #### C BC #### [facility] [address] [place] [address] Dr. Carleen Underwood NEUT # 3.7 103/ul Normal 1.4-6.5 [facility] Comment on above: Performed By: #### C BC #### [facility] [address] [place] [address] Dr. Craleen Underwood Neutrophils/100 WBC (Bld) 64.0 % Normal 43.0-75.0 [facility] Comment on above: Performed By: #### C BC #### [facility] [address] [place] [address] Dr. Carleen Underwood Platelet mean volume (Bld) [Entitic vol] 10.3 fL Normal 9.5-13.5 [facility] Comment on above: Performed By: #### C BC #### [facility] [address] [place] [address] Dr. Carleen Underwood PLT 229 103/ul Normal 150-450 [facility] Comment on above: Performed By: #### C BC #### [facility] [address] [address] [address] Carleen Underwood RBC 4.29 106/ul Normal 4.20-5.40 [facility] Comment on above: Performed By: #### C BC #### [facility] [address] [place] [address] Dr. Carleen Underwood WBC 5.7 103/ul Normal 4.0-11.0 [facility] Comment on above: Performed By: #### C BC #### [facility] [address] [place] [address] Dr. Carleen Underwood CULTURE URINEon 01-12-2022 CULTURE URINE Culture Observations : LIGHT GROWTH OF MIXED GENITAL YULI. NO POTENTIAL PATHOGENS SEEN. Normal [facility] Comment on above: Performed By: #### U RCX #### [facility] [address] [place] [address] Dr. Carleen Underwood GLYCOHEMOGLOBIN A1Con 2021 ADA RECOMMENDATION SEE BELOW Normal [facility] Comment on above: Result Comment: ADA RECOMMENDED LIMIT 4.0 - 6.0 ADA THERAPEUTIC TARGET < 7.0 ACTION SUGGESTED > 7.0 Performed By: #### G LU1HR #### [facility] [address] [place] [address] Dr. Carleen Underwood Glucose [Mass/Vol] 100 mg/dL Normal [facility] Comment on above: Performed By: #### G LU1HR #### [facility] [address] [place] [address] Dr. Carleen Underwood HbA1c (Bld) [Mass fraction] 5.1 % Normal 4.5-6.2 [facility] Comment on above: Performed By: #### G LU1HR #### [facility] [address] [place] [address] Dr. Carleen Underwood EMILY BOX TEST PT SEND OUTo n 01-12-2022 SENT TO REF LAB 01/12/2022 Normal [facility] Comment on above: Performed By: #### H CVPCRR #### [facility] [address] [place] [address] Dr. Carleen Underwood TYPE AND SCREENon 01-12-2022 TYPE AND SCREEN Negative Normal [facility] Comment on above: Performed By: #### T NS #### [facility] [address] [place] [address] Dr. Carleen Underwood US PREG TVon 12-29-2021 [...] by: BRANDI ANN Date: 2021-12-29 16:07 Normal [facility] Coding Summary.on 02-12-2020 Coding Summary. CODING DATE: 020 FINAL [facility] STATUS: Home (Routine DC) PAYOR: Commercial [...] Esquivel Date Saved: 02/12/2020 10:10 am Normal [facility] Physician Orderon 02-07-2020 Physician Order [id number] Normal [facility] Vital Signs Date Time Vital Sign Value Performing Clinician Facility 07-15-2023 13:00-0500 Body height 170.81 cm Chery Aranda Other [facility] Other 07-15-2023 13:00-0500 Body mass index (BMI) [Ratio] 39.95 kg/m2 Chery Aranda Other [facility] Other 07-15-2023 13:00-0500 Body weight 116.58 kg Chery Aranda Other [facility] Other 07-15-2023 13:00-0500 Diastolic blood pressure 74 mm[Hg] Chery Aranda Other [facility] Other 07-15-2023 13:00-0500 Systolic blood pressure 107 mm[Hg] Chery Aranda Other [facility] Other 06-14-2023 13:30-0400 Body height 170.81 cm Chery Aranda Other [facility] Other 06-14-2023 13:30-0400 Body mass index (BMI) [Ratio] 39.42 kg/m2 Chery Aranda Other [facility] Other 06-14-2023 13:30-0400 Body weight 115.03 kg Chery Aranda Other [facility] Other 06-14-2023 13:30-0400 Diastolic blood pressure 72 mm[Hg] Chery Aranda Other [facility] Other 06-14-2023 13:30-0400 Systolic blood pressure 118 mm[Hg] Chery Aranda Other [facility] Other 05-16-2023 13:00-0400 Body height 170.81 cm Chery Aranda Other [facility] Other 05-16-2023 13:00-0400 Body mass index (BMI) [Ratio] 40.1 kg/m2 Chery Aranda Other [facility] Other 05-16-2023 13:00-0400 Body weight 117.03 kg Chery Aranda Other [facility] Other 05-16-2023 13:00-0400 Diastolic blood pressure 67 mm[Hg] Chery Aranda Other [facility] Other 05-16-2023 13:00-0400 Systolic blood pressure 102 mm[Hg] Chery Aranda Other [facility] Other 04-15-2023 13:00-0400 Body height 170.81 cm Chery Aranda Other [facility] Other 04-15-2023 13:00-0400 Body mass index (BMI) [Ratio] 41.35 kg/m2 Chery Aranda Other [facility] Other 04-15-2023 13:00-0400 Body weight 120.66 kg Chery Aranda Other [facility] Other 04-15-2023 13:00-0400 Diastolic blood pressure 71 mm[Hg] Chery Aranda Other [facility] Other 04-15-2023 13:00-0400 Systolic blood pressure 110 mm[Hg] Chery Aranda Other [facility] Other 03-22-2022 02:06-0400 Body weight 117.[address] BRANDI ANN [facility] Comment on above: Performed By: #### HCVPCRR #### [facility] [address] [place] [address] Dr. Carelen Underwood Encounters Encounter Date Encounter Type Care Provider Facility Start: 12-25-2023 End: 12-25-2023 ambulatory DINH AYDE Not Available Start: 12-11-2023 End: 12-11-2023 ambulatory DINH AYDE Not Available Start: 11-27-2023 End: 11-27-2023 ambulatory FRIEDA GENE Not Available Start: 11-13-2023 End: 11-13-2023 ambulatory DINH AYDE Not Available Start: 10-17-2023 End: 10-18-2023 ambulatory COLIN Quiñones [facility] Start: 10-16-2023 End: 10-16-2023 ambulatory DINH AYDE Not Available Start: 10-04-2023 Chart abstracting Chao Marmolejo MD Work Phone: [facility] Start: 09-18-2023 End: 09-18-2023 ambulatory FRIEDA GENE Not Available Start: 08-20-2023 End: 08-20-2023 ambulatory DINH AYDE Not Available Start: 07-26-2023 End: 07-26-2023 ambulatory DINH AYDE Not Available Start: 07-15-2023 End: 07-15-2023 ambulatory Chery Aranda Other [facility] Other Start: 07-15-2023 Office outpatient vi sit 10 minutes Chery Aranda [facility] Start: 06-14-2023 End: 06-14-2023 ambulatory Chery Aranda Other [facility] Other Start: 06-14-2023 Office outpatient vi sit 10 minutes Chery Aranda [facility] Start: 05-16-2023 End: 05-16-2023 ambulatory Chery Aranda Other [facility] Other Start: 05-16-2023 Office outpatient vi sit 10 minutes Chery Aranda [facility] Start: 04-15-2023 End: 04-15-2023 ambulatory Chery Aranda Other [facility] Other Start: 04-15-2023 Office outpatient ne w 45 minutes Chery Aranda [facility] Start: 07-31-2022 End: 07-31-[address] [...] Start: 10-22-2023 End: 10-22-2023 Patient encounter procedure [facility] Start: 04-26-2023 Influenza vaccination Influenza Vacc ine [facility] Start: 2011 Screening for malign ant neoplasm of cervix Pap Smear [facility] Start: 2009 DTaP,Tdap and Td Vaccines (1 - Tdap) DTaP,Tdap and Td Vaccines (1 - Tdap) [facility] Start: 2008 Adult BMI Screening Adult BMI Screen ing [facility] Start: 2002 Depression Screening Depression Scre ening [facility] Start: 2002 Tobacco Screening Tobacco Screening [facility] Immunizations Immunization Date Immunization Notes Care Provider Fa cility 09-08-2019 influenza virus vaccine, unspecified formulation Chao Ling MD Work Phone: [facility] Payers Date Payer Category Payer Private Health Insurance [employer] A ETNA POS [id number] 2017-Present [phone] [address] [place] [address] [id number] 1990 Unknown [id number] 2.840.1.196705.3.579.2.5 93 1990 Unknown [id number] 2.840.1.969460.3.579.2.5 93 1990 Unknown [id number] 2.840.1.085935.3.579.2.5 93 1990 Unknown [id number] 2.16.840.1.341412.3.579.2.5 93 1990 Unknown [id number] 2.16.840.1.806491.3.579.2.5 93 1990 Unknown [id number] 2.16.840.1.957698.3.579.2.5 93 1990 Unknown [id number] 2.16.840.1.943303.3.579.2.5 93 1990 Unknown [id number] 2.16.840.1.016075.3.579.2.5 93 1990 Unknown [id number] 2.16.840.1.807684.3.579.2.5 93 1990 Unknown [id number] 2.16.840.1.664192.3.579.2.5 93 1990 Unknown [id number] 2.16.840.1.097371.3.579.2.5 93 1990 Unknown [id number] 2.16.840.1.173345.3.579.2.5 93 1990 Unknown [id number] 2.16.840.1.076156.3.579.2.5 93 1990 Unknown [id number] 2.16.840.1.793565.3.579.2.5 93 1990 Unknown [id number] 2.16.840.1.883537.3.579.2.5 93 1990 Unknown [id number] 2.16.840.1.073900.3.579.2.5 93 1990 Unknown [id number] 2.16.840.1.970010.3.579.2.5 93 1990 Unknown [id number] 2.16.840.1.292731.3.579.2.5 93 1990 Unknown [id number] 2.16.840.1.966008.3.579.2.1 259 1990 Unknown [id number] 2.16.840.1.493597.3.579.2.1 259 1990 Unknown [id number] 2.16.840.1.111078.3.579.2.1 259 1990 Unknown [id number] 2.16.840.1.533039.3.579.2.1 259 1990 Unknown [id number] 2.16.840.1.988403.3.579.2.1 259 1990 Unknown [id number] 2.16.840.1.119284.3.579.2.1 259 1990 Unknown [id number] 2.16.840.1.321493.3.579.2.1 259 1990 Unknown [id number] 2.16.840.1.604234.3.579.2.1 259 1959 Private Health Insurance [id number] 1959 Unknown [id number] Unknown [id number] 2.16.840.1.717975.3.579.2.5 93 Social History Date Type Detail Facility Unknown if ever smoked [facility] Other Start: 10-06-2020 End: 10-04-2023 Sex Assigned At [facility] Other Start: 09-11-2019 Tobacco smoking stat [facility] Never smoked tobacco [facility] Start: 09-11-2019 Tobacco use and exposure Smokeless tobacco non-user [facility] Start: 10-04-2023 Alcohol intake Ex-drinker (finding) [facility] Start: 10-06-2020 End: 10-04-2023 History of Social function [facility] Childcare Unknown [facility] Start: 05-30-2023 [facility] Start: 1990 Sex Assigned At Not on file P [facility] Evaluation note 07-15-2023 Note Date & Type Note Facility 07-15-2023 Evaluation note Encounter Date Diagnosis Assessment Notes Jun, First trimester (ICD-10 - Z34.91) Continued followup w Dr. Marroquin. No further adipex. [facility] Other Evaluation note 06-14-2023 Note Date & [...] index [BMI] 39.0-39.9, adult (ICD-10 - Z68.39) [facility] Other Evaluation note 05-16-2023 Note Date & [...] index [BMI] 40.0-44.9, adult (ICD-10 - Z68.41) [facility] Other Evaluation note 04-15-2023 Note Date & [...] index [BMI] 40.0-44.9, adult (ICD-10 - Z68.41) [facility] Other History general Narrative - Reported Note Date & Type Note Facility History general Narrative - Reported Type Surgical History T & A 2010 Surgical History Gallbladder 2013 [facility] Other History general Narrative - Reported Note Date & Type Note Facility History general Narrative - Reported Type Surgical History T & A 2010 Surgical History Gallbladder 2013 Hospitalization History see surgical hx [facility] Other History general Narrative - Reported Note [...] Gallbladder 2012 Hospitalization History see surgical hx [facility] Other Instructions Note Date & Type Note [...] section and content) DATE CREATED AUTHOR 03/11/2020 Elliott Candler [facility] DATE CREATED AUTHOR AUTHOR'S ORGANIZ ATION 08/04/2022 [facility] DATE CREATED AUTHOR AUTHOR'S ORGANIZ ATION 12/27/2023 [facility] EPIC DATE CREATED AUTHOR AUTHOR'S ORGANIZ ATION 01/08/2024 [facility] REASON FOR VISIT (unrecogniz ed section and content) ESTABLISH CARE1 month Follow up1 month Follow up1 month Follow up Care Teams (unrecognized sec tion and content) 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 [employer] [facility]. provides no warranty or guarantee of the accuracy or completeness of information in this document.
[2024-01-08] MEDS: BETAMETHASONE ACE/BETAMETHASONE SOD PHOS 30 MG/5 ML 12 MG IM (15:20)
[2024-01-08] MEDS: AZITHROMYCIN 250 MG TABLET 500 MG PO (15:24)
[2024-01-08 15:30] LABS: Basophils Percent Auto 0.4 % (0.2-2.0); Eosinophils Absolute Auto 0.1 10^3/uL (0.0-0.7); Eosinophils Percent Auto 1.3 % (0.9-7.0); Hematocrit 27.3 % (36.0-48.0); Hemoglobin 8.7 g/dL (12.0-16.0); Immature Granulocytes Abs Auto 0.05 10^3/uL (0.00-0.03); Immature Granulocytes Pct Auto 0.9 % (0.0-0.5); Lymphocytes Absolute Auto 1.6 10^3/uL (1.2-3.8); Lymphocytes Percent Auto 30.9 % (20.5-60.0); Mean Corpuscular HGB Conc 31.9 g/dL (29.9-35.2); Mean Corpuscular Hemoglobin 24.6 pg (26.7-34.0); Mean Corpuscular Volume 77.1 fL (81.0-99.0); Mean Platelet Volume 11.6 fL (9.5-13.5); Monocytes Absolute Auto 0.4 10^3/uL (0.3-0.8); Monocytes Percent Auto 7.6 % (1.7-12.0); Neutrophils Absolute Auto 3.1 10^3/uL (1.4-6.5); Neutrophils Percent Auto 58.9 % (43.0-75.0); Platelet Count 174 10^3/uL (150-450); Red Blood Count 3.54 10^6/uL (4.20-5.40); Red Cell Distribution Width 14.1 % (11.0-15.0); White Blood Count 5.3 10^3/uL (4.0-11.0)
[2024-01-08 15:47] LABS: INR 0.97; Partial Thromboplastin Time 25.6 sec (22.3-36.2); Prothrombin Time 10.3 sec (9.0-11.6)
[2024-01-08 15:50] LABS: Alanine Aminotransferase 12 U/L (14-59); Aspartate Amino Transferase 14 U/L (15-37); Estimated GFR (African America >60 (>=60); Estimated GFR (Non-African Ame >60 (>=60); Fibrinogen 418 mg/dL (200-400); Uric Acid 7.3 mg/dL (2.6-6.0)
[2024-01-08] MEDS: LABETALOL HCL 200 MG TABLET PO (17:02)
--- NOTE | 2024-01-09 00:28 | PM.OBHP ---
OB - H&P: HPI History of Present Illness Chief complaint: HEADACHE/HIGH BLOOD PRESSURE : 10 Para: 5 Gestational age based on last menstrual period: 34 Narrative: 33 yo at 34 wks presents with elevated bp in the office, pt denies briscoe, visual changes or epigastric pain, pt ednies urinary symptoms pt denies sob ct, pt denies lof, vb ctxns, History of Present Dating criteria: LMP confirmed by 1st trimester US care: good care Ultrasounds: normal 1st trimester US and normal mid trimester US complications: induced hypertension Labs Blood type: A (+) positive Rubella: immune Review of Systems ROS Status of ROS: 10 or more systems reviewed and unremarkable except as noted in history and below Meds Home Medications and Allergies Allergies Allergy/AdvReac Type Severity Reaction Status Date / Time No Known Drug Allergies Allergy Verified 06/09/23 15:05 Exam Constitutional Vital Signs, click to edit/add: Last Vital Signs Pulse 75 01/08/24 22:57 Resp 16 01/08/24 15:17 BP 120/71 01/08/24 22:57 O2 Del Method Room Air 01/08/24 15:17 Documenting provider has reviewed patient's vital signs: yes Common normals: no apparent distress Respiratory Common normals: normal respiratory effort and clear to auscultation bilaterally Cardio Common normals: regular rate and regular rhythm GI Common normals: Normal to inspection, nondistended, normoactive bowel sounds present Extremity Common normals: no calf tenderness Results Labs Labs: Short CBC 01/08/24 Range/Units 15:17 WBC 5.3 (4.0-11.0) 10^3/uL Hgb 8.7 L (12.0-16.0) g/dL Hct 27.3 L (36.0-48.0) % Plt Count 174 (150-450) 10^3/uL BMP 01/08/24 15:17 BUN 9.0 Creatinine 0.75 Liver Function 01/08/24 Range/Units 15:17 AST 14 L (15-37) U/L ALT 12 L (14-59) U/L OB - A/P Assessment and Plan (1) induced hypertension: Assessment and Plan: start labetalol 200mg po bid, obtain 24hr protein, give celestone, obtain pih labs, obtain bpp, cord dopplers and nst, observe overnight (2) Intrauterine : (3) Anemia affecting : Assessment and Plan: cont fe
[2024-01-09 05:07] VITALS: BP 113/59; PULSE 79; TEMP 36.4
[2024-01-09 05:08] VITALS: TEMP 36.4
[2024-01-09] MEDS: LABETALOL HCL 200 MG TABLET PO (05:09)
[2024-01-09 06:56] VITALS: BP 112/59; PULSE 85; TEMP 35.8; TEMP 36.3
[2024-01-09 09:08] VITALS: BP 123/64; PULSE 77; TEMP 36.5
--- NOTE | 2024-01-09 09:51 | PC.NURSE ---
Patient states unresolved headache is not new, not worse nor accompanied by vision changes, shortness of breath, tightness in the chest, or RUQ pain. precautions given, no further questions
[2024-01-09 21:57] LABS: Total Volume 24 Hour Urine 2150 mL/24hr
[2024-01-09 22:02] LABS: Total Protein 24 Hour Urine 776.2 mg/24hr (<=149.1); Total Protein Urine Random 36.1 mg/dL (<=11.9)
== END 2024-01-09 09:50 | disposition home or self-care (01) ==
PROVIDERS: Admitting Provider Obstetrics & Gynecology; PCP Family Medicine; Visit Provider Obstetrics & Gynecology
DX: O13.3 Gestational [pregnancy-induced] hypertension without significant proteinuria, third trimester (principal); O99.013 Anemia complicating pregnancy, third trimester; D64.9 Anemia, unspecified; Z3A.34 34 weeks gestation of pregnancy
CPT/HCPCS: 36415; 59025; 76818; 76820; 82565; 84156; 84450; 84460; 84520; 84550; 85025; 85384; 85610; 85730; 96372; G0378; G0379; J0702

== ENCOUNTER 2024-01-09 15:32 | Outpatient (OUT) | payer OTHER, SELFPAY ==
[2024-01-09] MEDS: BETAMETHASONE ACE/BETAMETHASONE SOD PHOS 30 MG/5 ML 12 MG IM (15:42)
[2024-01-09 15:51] VITALS: BP 141/72; PULSE 70
== END 2024-01-09 15:57 | disposition home or self-care (01) ==
LOC: FBCO 15:33 → FBC 15:39
PROVIDERS: PCP Family Medicine; Visit Provider Obstetrics & Gynecology
DX: O16.9 Unspecified maternal hypertension, unspecified trimester (principal)
CPT/HCPCS: J0702

== ENCOUNTER 2024-01-11 09:06 | Observation (INO) | payer OTHER, SELFPAY ==
[2024-01-11] VITALS (15 sets, daily range): BP systolic 146–174; BP diastolic 65–94; PULSE 56–86
--- OUTSIDE RECORDS SUMMARY | 2024-01-11 09:09 | XMS_ITS | CCD ---
Author Organization [facility] Care Team Providers Care Striper Name Role Phone WEST, DR BRANDI Quinonez [...] AYDE, DR TAO Consulting Unavailable AYDE, DR TOA Attending Unavailable AYDE, DR TAO Admitting Unavailable REQUEST, NONE LISTED Primary Care Unavaila ble ZIEBER, DR FOUZIA Schilling Consulting Unavailable AYDE, DR TAO Attending Unavailable REQUEST, NONE LISTED Primary Care Unavaila ble AYDE, DR TAO Admitting Unavailable Chery Aranda Unavailable [employer] Primary Care Provider COLIN BOWLING Referring Unavailable DINH MARROQUIN Primary Care Unavailable AYED, DINH Attending Unavailable GENEFRIEDA JOYNER Attending Unavailable AYDE, DINH Attending Unavailable AYDE, DINH Attending Unavailable FRIEDA MILLS Attending Unavailable DINH MARROQUIN Attending Unavailable AYDE, DINH Attending Unavailable FRIEDA MILLS Attending Unavailable Medications Current Medications Medication Drug [...] Active Start: 05-16-2023 take 1 capsule by [facility] every twenty-four hours Phentermine HCl 37.5 MG 1 capsule Orally Once a day for 30 days Apr, Active Start: 04-15-2023 take 1 capsule by [facility] every twenty-four hours Phentermine HCl 37.5 MG 1 capsule Orally Once a day for 30 days Mar, Active [id number]-ryku-fqavr ac id 29 mg iron- 1 mg [...] Test Name Value Interpretation Reference Range Facility [place] B Abon 10-26-2023 [place] tp. B1 <1:10 Normal <1:10 [facility] Comment on above: Performed By: #### C MVG, LUPPRO, AT3A, PROCAC, PROSAC, CMVM, CMIS, TOXOG, TOXOM, HOCYS #### [facility] [place], [place] [id number] Pitch Filler: Tanvir Macias MD #### APTMUT, AF5MUT, AMTHFR, ACOXA9, APARVP, ACOXAB #### [facility] [address], [place] [id number] Pitch Filler: MD Tatum Santoyo. B2 1:20 Normal <1:10 [facility] Comment on above: Performed By: #### C MVG, LUPPRO, AT3A, PROCAC, PROSAC, CMVM, CMIS, TOXOG, TOXOM, HOCYS #### [facility] [address] [place] [address] Pitch Filler: Tanvir Macias MD #### APTMUT, AF5MUT, AMTHFR, ACOXA9, APARVP, ACOXAB #### [facility] [address], [place] [id number] Pitch Filler: MD Tatum Santoyo. B3 1:10 Normal <1:10 [facility] Comment on above: Performed By: #### C MVG, LUPPRO, AT3A, PROCAC, PROSAC, CMVM, CMIS, TOXOG, TOXOM, HOCYS #### [address] [address] Pitch Filler: Tanvir Macias MD #### APTMUT, AF5MUT, AMTHFR, ACOXA9, APARVP, ACOXAB #### [facility] [address], [place] [id number] Pitch Filler: MD Tatum Santoyo B4 1:320 Abnormal <1:10 [facility] Comment on above: Performed By: #### C MVG, LUPPRO, AT3A, PROCAC, PROSAC, CMVM, CMIS, TOXOG, TOXOM, HOCYS #### [facility] [address] [place] [address] Pitch Filler: Tanvir Macias MD #### APTMUT, AF5MUT, AMTHFR, ACOXA9, APARVP, ACOXAB #### [facility] [address] [place] [address] Pitch Filler: MD Tatum Santoyo. B5 <1:10 Normal <1:10 [facility] Comment on above: Performed By: #### C MVG, LUPPRO, AT3A, PROCAC, PROSAC, CMVM, CMIS, TOXOG, TOXOM, HOCYS #### [address] [id number] Pitch Filler: Tanvir Macias MD #### APTMUT, AF5MUT, AMTHFR, ACOXA9, APARVP, ACOXAB #### [address] [address] Pitch Filler: MD Tatum Santoyo. B6 <1:10 Normal <1:10 [facility] Comment on above: Result Comment: (NOT E) INTERPRETIVE INFORMATION: Coxsackie B Virus Single positive antibody titers of greater than or equal to 1:80 may indicate past or current infection. Sero- conversion or an increase in titers between acute and convalescent sera of at least fourfold is considered strong evidence of current or recent infection. Performed By: [facility] [employer] [address] [place] [address] Pc Support Specialist: Nadeem Mcarthur MD, PhD CLIA Number: [id number] Performed By: #### C MVG, LUPPRO, AT3A, PROCAC, PROSAC, CMVM, CMIS, TOXOG, TOXOM, HOCYS #### [address] [id number] Pitch Filler: Tanvir Macias MD #### APTMUT, AF5MUT, AMTHFR, ACOXA9, APARVP, ACOXAB #### [address] [id number] Pitch Filler: Enrique Arthur MD Factor V Mutationon 10-22-19 24 F 5 SPECIMEN Whole Blood Normal [facility] Comment on above: Performed By: #### C MVG, LUPPRO, AT3A, PROCAC, PROSAC, CMVM, CMIS, TOXOG, TOXOM, HOCYS #### [facility] [address] [place] [address] Pitch Filler: Tanvir Macias MD #### APTMUT, AF5MUT, AMTHFR, ACOXA9, APARVP, ACOXAB #### [facility] [address] [place] [address] Pitch Filler: Enrique Arthur MD FACTOR 5 MUTATION Negative Normal [facility] Comment on above: Result Comment: (NOT E) Indication for testing: Assess genetic risk for thrombosis. NEGATIVE: The factor V Leiden variant, c.1601G>A; p.Gpb471Bjw, was not detected. This does not exclude [...] function in the F5 gene variant c.1601G>A (p.Idb106Owa). Legacy nomenclature: [id number] (1691G>A) CLINICAL SENSITIVITY: 20-50 percent of individuals with an isolated VTE have the FVL variant. METHODOLOGY: Polymerase chain reaction and fluorescence monitoring. ANALYTICAL SENSITIVITY AND SPECIFICITY: 99 percent. LIMITATIONS: Diagnostic errors can occur due to rare sequence variations. F5 gene mutations, other than p.Zgv539Qbn, will not be detected. This test was developed and its performance characteristics determined by [facility]. It has not been cleared or approved by the [place] Food and Drug Administration. This test was performed in a CLIA certified laboratory and is intended for clinical purposes. Counseling and informed consent are recommended for genetic testing. Consent forms are available online. Performed By: [facility] [address] [place] [address] Pc Support Specialist: Nadeem Mcarthur MD, PhD CLIA Number: [id number] Performed By: #### C MVG, LUPPRO, AT3A, PROCAC, PROSAC, CMVM, CMIS, TOXOG, TOXOM, HOCYS #### [place] [address] Pitch Filler: Tanvir Macias MD #### APTMUT, AF5MUT, AMTHFR, ACOXA9, APARVP, ACOXAB #### [place] [id number] Pitch Filler: Enrique Arthur MD Coxsackie A9 Titeron 024 Coxsackie A9 Titer <1:8 Normal <1:8 [facility] Comment on above: Result Comment: (NOT E) INTERPRETIVE INFORMATION: Coxsackie A Serotype 9 Titer Single positive antibody titers of greater than 1:32 may indicate past or current infection. Seroconversion or an increase in titers between acute and convalescent sera of at least fourfold is considered strong evidence of current or recent infection. Performed By: [facility] [address] [place], [place] [id number] Pc Support Specialist: Nadeem Mcarthur MD, PhD CLIA Number: [id number] Performed By: #### C MVG, LUPPRO, AT3A, PROCAC, PROSAC, CMVM, CMIS, TOXOG, TOXOM, HOCYS #### [address] [address] Pitch Filler: Tanvir Macias MD #### APTMUT, AF5MUT, AMTHFR, ACOXA9, APARVP, ACOXAB #### [facility] [address], [place] [id number] Pitch Filler: Enrique Arthur MD MTHFR Gene Mutationon 2023 MTHFR 1286 A>C Mut Negative Normal [facility] Comment on above: Performed By: #### C MVG, LUPPRO, AT3A, PROCAC, PROSAC, CMVM, CMIS, TOXOG, TOXOM, HOCYS #### [address] [address] Pitch Filler: Tanvir Macias MD #### APTMUT, AF5MUT, AMTHFR, ACOXA9, APARVP, ACOXAB #### [facility] [address], [place] [id number] Pitch Filler: Enrique Arthur MD MTHFR 655C>T Mut Heterozygous Normal [facility] Comment on above: Performed By: #### C MVG, LUPPRO, AT3A, PROCAC, PROSAC, CMVM, CMIS, TOXOG, TOXOM, HOCYS #### [address] [address] Pitch Filler: Tanvir Macias MD #### APTMUT, AF5MUT, AMTHFR, ACOXA9, APARVP, ACOXAB #### [facility] [address], [place] [id number] Pitch Filler: Enrique Arthur MD MTHFR Interpretation See Note Normal [facility] Comment on above: Result Comment: (NOT E) Indication for testing: Determine genetic contribution to hyperhomocysteinemia. Heterozygous MTHFR c.665C>T: One copy of the MTHFR variant c.665C>T (previously designated C677T) was detected; the c.1286A>C (previously designated C7250L) variant was not identified. The common variant [...] has an effect on cardiovascular disease. The [place] [employer] Practice Guidelines indicate [...] a contributing factor to hyperhomocysteinemia. Variants Tested: c.665C>T(p.Xiw976Vqu) and c.1286A>C(p.Zns292Aqc). (legacy names C677T and L1163I, respectively). Clinical Sensitivity: Undefined; hyperhomocysteinemia is caused [...] developed and its performance characteristics determined by [facility]. It has not been cleared or approved by the [place] Food and Drug Administration. This test was performed in a CLIA certified laboratory and is intended for clinical purposes. Counseling and informed consent are recommended for genetic testing. Consent forms are available online. Performed By: [facility] [address] [place] [address] Pc Support Specialist: Nadeem Mcarthur MD, PhD CLIA Number: [id number] Performed By: #### C MVG, LUPPRO, AT3A, PROCAC, PROSAC, CMVM, CMIS, TOXOG, TOXOM, HOCYS #### [address] [address] Pitch Filler: Tanvir Macias MD #### APTMUT, AF5MUT, AMTHFR, ACOXA9, APARVP, ACOXAB #### [facility] [address] [place] [address] Pitch Filler: Enrique Arthur MD MTHFR SPECIMEN Whole Blood Normal [facility] Comment on above: Performed By: #### C MVG, LUPPRO, AT3A, PROCAC, PROSAC, CMVM, CMIS, TOXOG, TOXOM, HOCYS #### [address] [address] Pitch Filler: Tanvir Macias MD #### APTMUT, AF5MUT, AMTHFR, ACOXA9, APARVP, ACOXAB #### [address] [id number] Pitch Filler: Enrique Arthur MD PT Mutation [id number] 10-21-19 24 PT [id number] VARIANT Negative Normal [facility] Comment on above: Result Comment: (NOT E) Indication for testing: Assess genetic risk for thrombosis. NEGATIVE: The Factor II, prothrombin [id number] mutation, was not detected. Other causes of [...] Quintana, Ph.D. BACKGROUND INFORMATION: Prothrombin (F2) c.*97G>A (A59416R) Pathogenic Variant CHARACTERISTICS: The Factor II, c.*97G>A (S81111C) pathogenic variant is a common genetic risk [...] CAUSE: Homozygosity or heterozygosity for F2 c.*97G>A (F70911C). PATHOGENIC VARIANT TESTED: F2 c.*97G>A (V06661L). CLINICAL SENSITIVITY FOR VENOUS THROMBOSIS: Approximately 10 percent. METHODOLOGY: Polymerase chain reaction and fluorescence monitoring. ANALYTICAL SENSITIVITY AND SPECIFICITY: 99 percent. LIMITATIONS: Diagnostic errors can occur due to rare sequence variations. F2 gene variants, other than c.*97G>A (B43199L), will not be detected. This test was developed and its performance characteristics determined by [facility]. It has not been cleared or approved by the [place] Food and Drug Administration. This test was performed in a CLIA certified laboratory and is intended for clinical purposes. Counseling and informed consent are recommended for genetic testing. Consent forms are available online. Performed By: [facility] [address] [place] [address] Pc Support Specialist: Nadeem Mcarthur MD, PhD CLIA Number: [id number] Performed By: #### C MVG, LUPPRO, AT3A, PROCAC, PROSAC, CMVM, CMIS, TOXOG, TOXOM, HOCYS #### [facility] [address] [place] [address] Pitch Filler: Tanvir Macias MD #### APTMUT, AF5MUT, AMTHFR, ACOXA9, APARVP, ACOXAB #### [facility] [address], [place] [id number] Pitch Filler: Enrique Arthur MD PT PCR SPECIMEN Whole Blood Normal [facility] Comment on above: Performed By: #### C MVG, LUPPRO, AT3A, PROCAC, PROSAC, CMVM, CMIS, TOXOG, TOXOM, HOCYS #### [address] [address] Pitch Filler: Tanvir Macias MD #### APTMUT, AF5MUT, AMTHFR, ACOXA9, APARVP, ACOXAB #### [address] [address] Pitch Filler: Enrique Arthur MD Parvovirus B19 Panelon 10-21 Parvovirus IgG B19 1.80 IV High <=0.90 [facility] Comment on [...] PROSAC, CMVM, CMIS, TOXOG, TOXOM, HOCYS #### [address] [address] Pitch Filler: Tanvir Macias MD #### APTMUT, AF5MUT, AMTHFR, ACOXA9, APARVP, ACOXAB #### [facility] [address], [place] [id number] Pitch Filler: Enrique Arthur MD Parvovirus IgM B19 0.12 IV Normal <=0.90 [facility] Comment on above: Result Comment: (NOT E) INTERPRETIVE INFORMATION: Parvovirus B19 Antibody, IgM EFFECTIVE 07/04/2023 REFERENCE INTERVAL CHANGE Due to reagent kit millwright supervisor recall, an alternate kit has been validated and implemented by [facility]. The following Reference Interval applies [...] levels of specific IgM antibodies. Performed By: [facility] [address] [place] [address] Pc Support Specialist: Nadeem Mcarthur MD, PhD CLIA Number: [id number] Performed By: #### C MVG, LUPPRO, AT3A, PROCAC, PROSAC, CMVM, CMIS, TOXOG, TOXOM, HOCYS #### [facility] [employer] [facility] [place] [address] Pitch Filler: Tanvir Macias MD #### APTMUT, AF5MUT, AMTHFR, ACOXA9, APARVP, ACOXAB #### [facility] [employer] [address] [place] [address] Pitch Filler: Enrique Arthur MD Antithrombin III Becka 10-18 Antithrombin III Act 106 % Normal 83-122 [facility] Comment on above: Result Comment: Patients receiving Hirudin may have a falsely decreased Antitrombin III Activity. Performed By: #### C MVG, LUPPRO, AT3A, PROCAC, PROSAC, CMVM, CMIS, TOXOG, TOXOM, HOCYS #### [address] [id number] Pitch Filler: Tanvir Macias MD #### APTMUT, AF5MUT, AMTHFR, ACOXA9, APARVP, ACOXAB #### [facility] [address] [place] [address] Pitch Filler: Enrique Arthur MD Lupus Anticoagulanton 2023 Anticardiolipin IgA 2.4 APL Normal 0.0-14.0 [facility] Comment on above: Result Comment: Reference Range: <14.0 Negative 14.0-20.0 Equivocal >20.0 Positive When results are Equivocal, it is recommended to retest after 4-6 weeks. Performed By: #### C MVG, LUPPRO, AT3A, PROCAC, PROSAC, CMVM, CMIS, TOXOG, TOXOM, HOCYS #### [address] [id number] Pitch Filler: Tanvir Macias MD #### APTMUT, AF5MUT, AMTHFR, ACOXA9, APARVP, ACOXAB #### [address] [address] Pitch Filler: Enrique Arthur MD Anticardiolipin IgG 2.8 GPL Normal 0.0-10.0 [facility] Comment on above: Result Comment: Reference Range: <10.0 Negative 10.0-40.0 Equivocal >40.0 Positive Performed By: #### C MVG, LUPPRO, AT3A, PROCAC, PROSAC, CMVM, CMIS, TOXOG, TOXOM, HOCYS #### [address] [id number] Pitch Filler: Tanvir Macias MD #### APTMUT, AF5MUT, AMTHFR, ACOXA9, APARVP, ACOXAB #### [facility] [address], [place] [id number] Pitch Filler: Enrique Arthur MD Anticardiolipin IgM <0.8 Normal 0.0-10.0 [facility] Comment on above: Result Comment: Reference Range: <10.0 Negative 10.0-40.0 Equivocal >40.0 Positive Performed By: #### C MVG, LUPPRO, AT3A, PROCAC, PROSAC, CMVM, CMIS, TOXOG, TOXOM, HOCYS #### [address] [id number] Pitch Filler: Tanvir Macias MD #### APTMUT, AF5MUT, AMTHFR, ACOXA9, APARVP, ACOXAB #### [facility] [address], [place] [id number] Pitch Filler: Enriuqe Arthur MD Dilute Austin Viper Negative Normal [facility] Comment on above: Performed By: #### C MVG, LUPPRO, AT3A, PROCAC, PROSAC, CMVM, CMIS, TOXOG, TOXOM, HOCYS #### [address] [id number] Pitch Filler: Tanvir Macias MD #### APTMUT, AF5MUT, AMTHFR, ACOXA9, APARVP, ACOXAB #### [facility] [address], [place] [id number] Pitch Filler: Enrique Arthur MD Miscellaneouson 10-18-2023 Send Out Report [facility] [id number] Normal [facility] Comment on above: Result Comment: UNIT Y Performed By: #### C MVG, LUPPRO, AT3A, PROCAC, PROSAC, CMVM, CMIS, TOXOG, TOXOM, HOCYS #### [facility] [id number] Pitch Filler: Tanvir Macias MD #### APTMUT, AF5MUT, AMTHFR, ACOXA9, APARVP, ACOXAB #### [address] [address] Pitch Filler: Enrique Arthur MD Protein C Activityon 024 Protein C Activity 91 % Normal >80 [facility] Comment on [...] PROSAC, CMVM, CMIS, TOXOG, TOXOM, HOCYS #### [address] [id number] Pitch Filler: Tanvir Macias MD #### APTMUT, AF5MUT, AMTHFR, ACOXA9, APARVP, ACOXAB #### [address] [id number] Pitch Filler: Enrique Arthur MD Protein S Activityon 024 Protein S Activity 79 % Normal 59-130 [facility] Comment on [...] PROSAC, CMVM, CMIS, TOXOG, TOXOM, HOCYS #### [address] [address] Pitch Filler: Tanvir Macias MD #### APTMUT, AF5MUT, AMTHFR, ACOXA9, APARVP, ACOXAB #### [address] [address] Pitch Filler: Enrique Arthur MD Toxoplasma Ab,IgGon 10-18-19 24 Toxoplasma Ab,IgG 1.2 IU/mL Normal [facility] Comment on above: Result Comment: REFERENCE [...] PROSAC, CMVM, CMIS, TOXOG, TOXOM, HOCYS #### [address] [address] Pitch Filler: Tanvir Macias MD #### APTMUT, AF5MUT, AMTHFR, ACOXA9, APARVP, ACOXAB #### [address] [address] Pitch Filler: Enrique Arthur MD Toxoplasma Ab,IgMon 10-18-19 24 Toxoplasma Ab,IgM 0.56 Index Normal [facility] Comment on above: Result Comment: REFERENCE RANGE: <0.90 NON-REACTIVE 0.90 TO 0.99 INDETERMINANT >=1.00 REACTIVE Performed By: #### C MVG, LUPPRO, AT3A, PROCAC, PROSAC, CMVM, CMIS, TOXOG, TOXOM, HOCYS #### [address] [id number] Pitch Filler: Tanvir Macias MD #### APTMUT, AF5MUT, AMTHFR, ACOXA9, APARVP, ACOXAB #### [facility] [employer] [address] [place] [address] Pitch Filler: Enrique Arthur MD CMV Ab,IgGon 10-17-2023 CMV Ab,IgG 523.0 High <0.5 [facility] Comment on [...] PROSAC, CMVM, CMIS, TOXOG, TOXOM, HOCYS #### [facility] [employer] [address] [place] [address] Pitch Filler: Tanvir Macias MD #### APTMUT, AF5MUT, AMTHFR, ACOXA9, APARVP, ACOXAB #### [facility] [address] [place] [address] Pitch Filler: Enrique Arthur MD CMV Ab,IgMon 10-17-2023 CMV Ab,IgM 0.2 Normal <0.7 [facility] Comment on [...] PROSAC, CMVM, CMIS, TOXOG, TOXOM, HOCYS #### [facility] [address] [place] [address] Pitch Filler: Tanvir Macias MD #### APTMUT, AF5MUT, AMTHFR, ACOXA9, APARVP, ACOXAB #### [facility] [address] [place] [address] Pitch Filler: Enrique Arthur MD Homocysteineon 10-17-2023 Homocysteine 5.7 umol/L Normal <15.0 [facility] Comment on above: Performed By: #### C MVG, LUPPRO, AT3A, PROCAC, PROSAC, CMVM, CMIS, TOXOG, TOXOM, HOCYS #### [address] [address] Pitch Filler: Tanvir Macias MD #### APTMUT, AF5MUT, AMTHFR, ACOXA9, APARVP, ACOXAB #### [facility] [address] [place] [address] Pitch Filler: Enrique Arthur MD Lupus Anticoagulanton 2023 aPTT Coag (Bld) [Time] 27.6 s Normal 23.0-36.5 [facility] Comment on above: Result Comment: IV Heparin Therapy Range: 66.0-92.0 sec Performed By: #### C MVG, LUPPRO, AT3A, PROCAC, PROSAC, CMVM, CMIS, TOXOG, TOXOM, HOCYS #### [address] [address] Pitch Filler: Tanvir Macias MD #### APTMUT, AF5MUT, AMTHFR, ACOXA9, APARVP, ACOXAB #### [facility] [address] [place] [address] Pitch Filler: Enrique Arthur MD INR Coag (PPP) [Relative time] 1.0 {INR} Normal [facility] Comment on above: Result Comment: Therapeutic Range: Moderate Anticoagulant Intensity: INR = 2.0-3.0 High Anticoagulant Intensity: INR = 2.5-3.5 Performed By: #### C MVG, LUPPRO, AT3A, PROCAC, PROSAC, CMVM, CMIS, TOXOG, TOXOM, HOCYS #### [facility] [address] [place] [id number] Pitch Filler: Tanvir Macias MD #### APTMUT, AF5MUT, AMTHFR, ACOXA9, APARVP, ACOXAB #### [facility] [address] [place] [address] Pitch Filler: Enrique Arthur MD PT Coag (PPP) [Time] 13.5 s Normal 11.7-14.9 [facility] Comment on above: Performed By: #### C MVG, LUPPRO, AT3A, PROCAC, PROSAC, CMVM, CMIS, TOXOG, TOXOM, HOCYS #### [facility] [address] [place] [address] Pitch Filler: Tanvir Macias MD #### APTMUT, AF5MUT, AMTHFR, ACOXA9, APARVP, ACOXAB #### [facility] [address] [place] [address] Pitch Filler: Enrique Arthur MD Basic Metabolic Panelon Glucose [Mass/Vol] 97 mg/dL [facility] CBC without diffOrdered By: Mayra Victoria on 07-26-2023 Hematocrit (Bld) [Volume fraction] 34.8 % [facility] Hemoglobin (Bld) [Mass/Vol] 11.3 g/dL [facility] Platelets (Bld) [#/Vol] 292 10*3/uL [facility] Rbc Mcv (Fl) By Automated Count 83.5 [facility] HIV 1&2 AB/AG Screen (P24 AG )on 07-26-2023 HIV 1&2 AB/AG Non-Reactive [facility] Hemoglobin A1con 07-26-2023 HbA1c (Bld) [Mass fraction] 5.0 % 4.0 - 6.0 % [facility] Hepatitis B surface antigeno n 07-26-2023 Hepatitis B Surface Antigen Negative [facility] No Panel InformationOrdered By: Mayra Victoria on 07-26-2023 [facility] Rubella IGG immune statuson 07-26-2023 Rubella immune IgG 5.26 [facility] Syphilis Total(Unknown Syphi lis Status)on 07-26-2023 Syphilis Non-Reactive [facility] TSHon 07-26-2023 TSH Qn 1.99 m[IU]/L [facility] Type and screenon 07-26-2023 Abo/Rh(D) Positive [facility] CBC AUTO DIFFon 07-28-2022 BASO # 0.0 103/ul Normal 0.0-0.1 [facility] Comment on above: Performed By: #### H CVPCRR #### [facility] [address] [place] [address] Dr. Carleen Underwood Basophils/100 WBC (Bld) 0.3 % Normal 0.2-2.0 [facility] Comment on above: Performed By: #### H CVPCRR #### [facility] [address] [place] [address] Dr. Carleen Underwood EO # 0.2 103/ul Normal 0.0-0.7 [facility] Comment on above: Performed By: #### H CVPCRR #### [facility] [address] [place] [address] [address] Carleen Underwood Eosinophils/100 WBC (Bld) 1.5 % Normal 0.9-7.0 [facility] Comment on above: Performed By: #### H CVPCRR #### [facility] [address] [place] [address] Dr. Carleen Underwood Erythrocyte distribution width (RBC) [Ratio] 14.9 % Normal 11.0-15.0 [facility] Comment on above: Performed By: #### H CVPCRR #### [facility] [address] [place] [address] Dr. Carleen Underwood Hematocrit (Bld) [Volume fraction] 30.7 % Critically low 36.0-48.0 [facility] Comment on above: Performed By: #### H CVPCRR #### [facility] [address] [place] [address] Dr. Carleen Underwood Hemoglobin (Bld) [Mass/Vol] 9.4 g/dL Critically low 12.0-16.0 [facility] Comment on above: Performed By: #### H CVPCRR #### [facility] [address] [place] [address] Dr. Carleen Underwood IG # 0.07 10e3/ul Critically high 0.00-0.03 [facility] Comment on above: Performed By: #### H CVPCRR #### [facility] [address] [place] [address] Dr. Carleen Underwood IG % 0.6 % Critically high 0.0-0.5 [facility] Comment on above: Performed By: #### H CVPCRR #### [facility] [address] [place] [address] Dr. Carleen Underwood LYMPH # 2.7 103/ul Normal 1.2-3.8 [facility] Comment on above: Performed By: #### H CVPCRR #### [facility] [address] [place] [address] Dr. Carleen Underwood Lymphocytes/100 WBC (Bld) 24.1 % Normal 20.5-60.0 [facility] Comment on above: Performed By: #### H CVPCRR #### [facility] [address] [place] [address] Dr. Carleen Underwood MANUAL DIFF REQ NO Normal [facility] Comment on above: Performed By: #### H CVPCRR #### [facility] [address] [place] [address] Dr. Carleen Underwood MCH (RBC) [Entitic mass] 23.3 pg Critically low 26.7-34.0 [facility] Comment on above: Performed By: #### H CVPCRR #### [facility] [address] [place] [address] Dr. Carleen Underwood MCHC (RBC) [Mass/Vol] 30.6 g/dL Normal 29.9-35.2 [facility] Comment on above: Performed By: #### H CVPCRR #### [facility] [address] [place] [address] Dr. Carleen Underwood MCV (RBC) [Entitic vol] 76.2 fL Critically low 81.0-99.0 [facility] Comment on above: Performed By: #### H CVPCRR #### [facility] [address] [place] [address] Dr. Carleen Underwood MONO # 0.7 103/ul Normal 0.3-0.8 [facility] Comment on above: Performed By: #### H CVPCRR #### [facility] [address] [place] [address] Dr. Carleen Underwood Monocytes/100 WBC (Bld) 5.8 % Normal 1.7-12.0 [facility] Comment on above: Performed By: #### H CVPCRR #### [facility] [address] [place] [address] Dr. Carleen Underwood NEUT # 7.6 103/ul Critically high 1.4-6.5 [facility] Comment on above: Performed By: #### H CVPCRR #### [facility] [address] [place] [address] Dr. Carleen Underwood Neutrophils/100 WBC (Bld) 67.7 % Normal 43.0-75.0 [facility] Comment on above: Performed By: #### H CVPCRR #### [facility] [address] [place] [address] Dr. Carleen Underwood Platelet mean volume (Bld) [Entitic vol] 11.1 fL Normal 9.5-13.5 [facility] Comment on above: Performed By: #### H CVPCRR #### [facility] [address] [place] [address] Dr. Carleen Underwood PLT 242 103/ul Normal 150-450 [facility] Comment on above: Performed By: #### H CVPCRR #### [facility] [address] [place] [address] Dr. Carleen Underwood RBC 4.03 106/ul Critically low 4.20-5.40 [facility] Comment on above: Performed By: #### H CVPCRR #### [facility] [address] [place] [address] Dr. Carleen Underwood WBC 11.2 103/ul Critically high 4.0-11.0 [facility] Comment on above: Performed By: #### H CVPCRR #### [facility] [address] [place] [address] Dr. Carleen Underwood CBC AUTO DIFFon 07-27-2022 BASO # 0.0 103/ul Normal 0.0-0.1 [facility] Comment on above: Performed By: #### G LU1HR #### [facility] [address] [place] [address] Dr. Carleen Underwood Basophils/100 WBC (Bld) 0.5 % Normal 0.2-2.0 [facility] Comment on above: Performed By: #### G LU1HR #### [facility] [address] [place] [address] Dr. Carleen Underwood EO # 0.1 103/ul Normal 0.0-0.7 [facility] Comment on above: Performed By: #### G LU1HR #### [facility] [address] [place] [address] Dr. Carleen Underwood Eosinophils/100 WBC (Bld) 1.2 % Normal 0.9-7.0 [facility] Comment on above: Performed By: #### G LU1HR #### [facility] [address] [place] [address] Dr. Carleen Underwood Erythrocyte distribution width (RBC) [Ratio] 14.9 % Normal 11.0-15.0 [facility] Comment on above: Performed By: #### G LU1HR #### [facility] [address] [place] [address] Dr. Carleen Underwood Hematocrit (Bld) [Volume fraction] 29.6 % Critically low 36.0-48.0 [facility] Comment on above: Performed By: #### G LU1HR #### [facility] [address] [place] [address] Dr. Carleen Underwood Hemoglobin (Bld) [Mass/Vol] 9.3 g/dL Critically low 12.0-16.0 [facility] Comment on above: Performed By: #### G LU1HR #### [facility] [address] [place] [address] Dr. Carleen Underwood IG # 0.04 10e3/ul Critically high 0.00-0.03 [facility] Comment on above: Performed By: #### G LU1HR #### [facility] [address] [place] [address] Dr. Carleen Underwood IG % 0.5 % Normal 0.0-0.5 [facility] Comment on above: Performed By: #### G LU1HR #### [facility] [address] [place] [address] Dr. Carleen Underwood LYMPH # 2.1 103/ul Normal 1.2-3.8 [facility] Comment on above: Performed By: #### G LU1HR #### [facility] [address] [place] [address] Dr. Carleen Underwood Lymphocytes/100 WBC (Bld) 25.5 % Normal 20.5-60.0 [facility] Comment on above: Performed By: #### G LU1HR #### [facility] [address] [place] [address] Dr. Carleen Underwood MANUAL DIFF REQ NO Normal [facility] Comment on above: Performed By: #### G LU1HR #### [facility] [address] [place] [address] Dr. Carleen Underwood MCH (RBC) [Entitic mass] 23.2 pg Critically low 26.7-34.0 [facility] Comment on above: Performed By: #### G LU1HR #### [facility] [address] [place] [address] Dr. Carleen Underwood MCHC (RBC) [Mass/Vol] 31.4 g/dL Normal 29.9-35.2 [facility] Comment on above: Performed By: #### G LU1HR #### [facility] [address] [place] [address] Dr. Carleen Underwood MCV (RBC) [Entitic vol] 73.8 fL Critically low 81.0-99.0 [facility] Comment on above: Performed By: #### G LU1HR #### [facility] [address] [place] [address] Dr. Carleen Underwood MONO # 0.5 103/ul Normal 0.3-0.8 [facility] Comment on above: Performed By: #### G LU1HR #### [facility] [address] [place] [address] Dr. Carleen Underwood Monocytes/100 WBC (Bld) 6.2 % Normal 1.7-12.0 [facility] Comment on above: Performed By: #### G LU1HR #### [facility] [address] [place] [address] Dr. Carleen Underwood NEUT # 5.4 103/ul Normal 1.4-6.5 [facility] Comment on above: Performed By: #### G LU1HR #### [facility] [address] [place] [address] Dr. Carleen Underwood Neutrophils/100 WBC (Bld) 66.1 % Normal 43.0-75.0 [facility] Comment on above: Performed By: #### G LU1HR #### [facility] [address] [place] [address] Dr. Carleen Underwood Platelet mean volume (Bld) [Entitic vol] 11.3 fL Normal 9.5-13.5 [facility] Comment on above: Performed By: #### G LU1HR #### [facility] [address] [place] [address] Dr. Carleen Underwood PLT 238 103/ul Normal 150-450 [facility] Comment on above: Performed By: #### G LU1HR #### [facility] [address] [place] [address] Dr. Carleen Underwood RBC 4.01 106/ul Critically low 4.20-5.40 [facility] Comment on above: Performed By: #### G LU1HR #### [facility] [address] [place] [address] Dr. Carleen Underwood WBC 8.2 103/ul Normal 4.0-11.0 [facility] Comment on above: Performed By: #### G LU1HR #### [facility] [address] [place] [address] Dr. Carleen Underwood Covid-19 PCR ([facility])on SARS-CoV-2 (COVID-19) RNA HUY+probe Ql (Unsp spec) Not detected Normal NOT DETECTED [facility] Comment on above: Result Comment: When [...] for this test is supported by the [place] of [employer] and Human Service's declaration that [...] Performed By: #### H CVPCRR #### [facility] [address] [place] [address] Dr. Carleen Underwood DRUG SCREEN RAPID (URINE)on 07-27-2022 AMP Negative Normal NEGATIVE [facility] Comment on above: Performed By: #### G TT3P #### [facility] [address] [place] [address] Dr. Carleen Underwood BAR Negative Normal NEGATIVE [facility] Comment on above: Performed By: #### G TT3P #### [facility] [address] [place] [address] Dr. Carleen Underwood BUP Negative Normal NEGATIVE [facility] Comment on above: Performed By: #### G TT3P #### [facility] [address] [place] [address] Dr. Carleen Underwood BZO Negative Normal NEGATIVE [facility] Comment on above: Performed By: #### G TT3P #### [facility] [address] [place] [address] Dr. Carleen Underwood EMIGDIO Negative Normal NEGATIVE [facility] Comment on above: Performed By: #### G TT3P #### [facility] [address] [place] [address] Dr. Carleen Underwood CUT-OFFS SEE BELOW Normal [facility] Comment on above: Result Comment: AMP [...] Performed By: #### G TT3P #### [facility] [address] [place] [address] Dr. Carleen Underwood DRUG CUT HEADER DRUG CLASS TEST SYST EM CUT-OFF CONCENTRATIONS ARE FOLLOWS: Normal [facility] Comment on above: Performed By: #### G TT3P #### [facility] [address] [place] [address] Dr. Carleen Underwood mAMP Negative Normal NEGATIVE [facility] Comment on above: Performed By: #### G TT3P #### [facility] [address] [place] [address] Dr. Carleen Underwood MTD Negative Normal NEGATIVE [facility] Comment on above: Performed By: #### G TT3P #### [facility] [address] [place] [address] Dr. Carleen Underwood OPI Negative Normal NEGATIVE [facility] Comment on above: Performed By: #### G TT3P #### [facility] [address] [place] [address] Dr. Carleen Underwood OXY Negative Normal NEGATIVE [facility] Comment on above: Performed By: #### G TT3P #### [facility] [address] [address] [address] Carleen Underwood PCP Negative Normal NEGATIVE [facility] Comment on above: Performed By: #### G TT3P #### [facility] [address] [address] [address] Carleen Underwood PPX Negative Normal NEGATIVE [facility] Comment on above: Performed By: #### G TT3P #### [facility] [address] [place] [address] Dr. Carleen Underwood TCA Negative Normal NEGATIVE [facility] Comment on above: Performed By: #### G TT3P #### [facility] [address] [place] [address] Dr. Carleen Underwood THC Negative Normal NEGATIVE [facility] Comment on above: Performed By: #### G TT3P #### [facility] [address] [place] [address] Dr. Carleen Underwood TYPE AND SCREENon 07-27-2022 TYPE AND SCREEN Negative Normal [facility] Comment on above: Performed By: #### G TT3P #### [facility] [address] [place] [address] Dr. Carleen Underwood US PREG AMNIOTIC FLUID [...] CALERO Date: 2022-07-12 16:24 Normal [facility] US PREG BIOPHY W NON [...] ANN Date: 2022-07-09 16:35 Normal [facility] US PREG BIOPHY W NON [...] CALERO Date: 2022-07-06 17:28 Normal [facility] GROUP B STREP CULTUREon 06-26 S. agalactiae Ag Ql (Unsp spec) Culture Observations: NEGATIVE FOR GROUP B STREPTOCOCCUS. Normal [facility] Comment on above: Performed By: #### G TT3P #### [facility] [address] [place] [address] Dr. Carleen Underwood US PREG GROWTHon 07-05-2022 [...] Marroquin was notified of these findings by metal punch press operator at time of imaging. 3. Biparietal diameter is at 8th percentile. Electronically authenticated by: FOUZIA CALERO Date: 2022-07-05 16:58 Normal [facility] US PREG GROWTHon 06-11-2022 US PREG [...] by: FOUZIA CALERO Date: 2022-06-11 16:22 Normal [facility] US PREG INCOMPLETE ANATOMYon 06-11-2022 US [...] CALERO Date: 2022-06-11 16:20 Normal [facility] US PREG INCOMPLETE ANATOMYon 05-14-2022 US [...] CALERO Date: 2022-05-14 17:15 Normal [facility] GTT 3 HR PREGon 04-24-2022 Glucose [Mass/Vol] 91 mg/dL Normal 74-106 [facility] Comment on above: Performed By: #### G TT3P #### [facility] [address] [address] [address] Carleen Underwood Glucose [Mass/Vol] 141 mg/dL Normal [facility] Comment on above: Performed By: #### G TT3P #### [facility] [address] [address] [address] Carleen Underwood Glucose [Mass/Vol] 103 mg/dL Normal [facility] Comment on above: Performed By: #### G TT3P #### [facility] [address] [address] [address] Carleen Underwood Glucose [Mass/Vol] 75 mg/dL Normal [facility] Comment on above: Performed By: #### G TT3P #### [facility] [address] [address] [address] Carleen Underwood US PREG INCOMPLETE ANATOMYon [...] cervical os Normal ventricular outflow tracts Normal [facility] PAP ACOG PANEL 2: 30 to 65on 04-20-2022 . . Normal [facility] Comment on above: Result Comment: Perf ormed at: WB Performed By: #### [id number] #### [facility] [address] [address] [address] Carleen Underwood Age Gdln ACOG Testing [facility] Comment on above: Performed By: #### [id number] #### [facility] [address] [address] [address] Carleen Underwood DIAGNOSIS: Comment Normal [facility] Comment on above: Result Comment: NEGA TIVE FOR INTRAEPITHELIAL LESION OR MALIGNANCY. Performed at: WB Performed By: #### [id number] #### [facility] [address] [address] [address] Carleen Underwood HPV Aptima Negative Normal Negative [facility] Comment on above: Result Comment: This nucleic acid amplification test detects fourteen high-risk HPV types (16,18,31,33,35,39,45,51,52,56,58,59,66,68) without differentiation. Performed at: =G Performed By: #### [id number] #### [facility] [address] [address] [address] Carleen Underwood Methodology: Comment Normal [facility] Comment on above: Result Comment: This liquid based ThinPrep(R) pap test was screened with the use of an image guided system. Performed at: WB Performed By: [id number] #### [facility] [address] [address] [address] Carleen Underwood Note: Comment Normal [facility] Comment on above: Result Comment: The Pap smear is a screening test designed to aid in the detection of premalignant and malignant conditions of the uterine cervix. It is not a diagnostic procedure and should not be used as the sole means of detecting cervical cancer. Both false-positive and false-negative reports do occur. . Performed at: WB Performed By: #### [id number] #### [facility] [address] [place] [address] Dr. Carleen Underwood Performed by: Comment Normal [facility] Comment on above: Result Comment: Carol Aguilar, Right Of Way Supervisor Performed at: WB Performed By: #### [id number] #### [facility] [address] [place] [address] Dr. Carleen Underwood Specimen adequacy: Comment Normal [facility] Comment on above: Result Comment: Sati sfactory for evaluation. No endocervical component is identified. Performed at: WB Performed By: #### [id number] #### [facility] [address] [place] [address] Dr. Carleen Underwood CHLAMYDIA/GONOCOCCUS HUY (SW AB/URINE/PAPon 04-19-2022 Chlamydia trachomatis, HUY Negative Normal Negative [facility] Comment on above: Performed By: #### H CVPCRR #### [facility] [address] [place] [address] Dr. Carleen Underwood Neisseria gonorrhoeae, HUY Negative Normal Negative [facility] Comment on above: Performed By: #### H CVPCRR #### [facility] [address] [place] [address] Dr. Carleen Underwood VAGINITIS/VAGINOSIS DNA PROB True 04-19-2022 Priya species Negative Normal Negative [facility] Comment on above: Performed By: #### G LU1HR #### [facility] [address] [place] [address] Dr. Carleen Underwood Gardnerella vaginalis Negative Normal Negative [facility] Comment on above: Performed By: #### G LU1HR #### [facility] [address] [place] [address] Dr. Carleen Underwood Trichomonas vaginalis Negative Normal Negative [facility] Comment on above: Performed By: #### G LU1HR #### [facility] [address] [place] [address] Dr. Carleen Underwood GLUCOSE - 1HRon 04-17-2022 Glucose [Mass/Vol] 150 mg/dL Critically high 74-106 [facility] Comment on above: Performed By: #### G LU1HR #### [facility] [address] [place] [address] Dr. Carleen Underwood HEMOGRAM AND PLATELon 2021 Hematocrit (Bld) [Volume fraction] 31.9 % Critically low 36.0-48.0 [facility] Comment on above: Performed By: #### H H #### [facility] [address] [place] [address] Dr. Carleen Underwood Hemoglobin (Bld) [Mass/Vol] 10.3 g/dL Critically low 12.0-16.0 [facility] Comment on above: Performed By: #### H H #### [facility] [address] [place] [address] Dr. Carleen Underwood MCH (RBC) [Entitic mass] 26.6 pg Critically low 26.7-34.0 [facility] Comment on above: Performed By: #### H H #### [facility] [address] [place] [address] Dr. Carleen Underwood MCHC (RBC) [Mass/Vol] 32.3 g/dL Normal 29.9-35.2 [facility] Comment on above: Performed By: #### H H #### [facility] [address] [place] [address] Dr. Carleen Underwood MCV (RBC) [Entitic vol] 82.4 fL Normal 81.0-99.0 [facility] Comment on above: Performed By: #### H H #### [facility] [address] [place] [address] Dr. Carleen Underwood PLT 233 103/ul Normal 150-450 [facility] Comment on above: Performed By: #### H H #### [facility] [address] [place] [address] Dr. Carleen Underwood RBC 3.87 106/ul Critically low 4.20-5.40 [facility] Comment on above: Performed By: #### H H #### [facility] [address] [address] [address] Carleen Underwood WBC 8.5 103/ul Normal 4.0-11.0 [facility] Comment on above: Performed By: #### H H #### [facility] [address] [address] [address] Carleen Underwood AFP MATERNAL FOR SPINA BIFID Aon 03-22-2022 AFP MoM 1.08 Normal [facility] Comment on above: Performed By: #### H CVPCRR #### [facility] [address] [place] [address] Dr. Carleen Udnerwood AFP Value 43.1 ng/mL Normal [facility] Comment on above: Performed By: #### H CVPCRR #### [facility] [address] [place] [address] Dr. Carleen Underwood AFP, Serum for Spina Bifida Report Normal [facility] Comment on above: Performed By: #### H CVPCRR #### [facility] [address] [address] [address] Carleen Underwood Comment Comment Normal [facility] Comment on above: Result Comment: Re Quick, Ph.D., [facility] Director . References: Available Upon Request. . Multiples Of Median Cutoffs For AFP Elevations [place] 2.5 Black 2.8 IDD 2.0 Twins 4.5 Abbreviation Definitions IDD - Insulin Dep Diabetes OSBR - Open Spina Bifida Risk . For further inquiries contact [facility] at [phone]. . This test was developed and its performance characteristics determined by [employer]. It has not been cleared or approved by the Food and Drug Administration. Performed By: #### H CVPCRR #### [facility] [address] [place] [address] Dr. Carleen Underwood Gest Age Collection Date 19.4 weeks Normal [facility] Comment on above: Performed By: #### H CVPCRR #### [facility] [address] [place] [address] Dr. Carleen Underwood Gestat, Age Based on LMP Normal [facility] Comment on above: Result Comment: Reca lculations are not recommended when gestational dating by LMP and ultrasound are within 10 days. Performed By: #### H CVPCRR #### [facility] [address] [place] [address] Dr. Carleen Underwood Insulin Dep Diabetes No Normal [facility] Comment on above: Performed By: #### H CVPCRR #### [facility] [address] [place] [address] Dr. Carleen Underwood Interpretation Comment Normal [facility] Comment on above: Result Comment: Inte [...] Customer Services to discuss available options. The [place] [employer] recommends amniocentesis be offered to women age 35 and older. Performed By: #### H CVPCRR #### [facility] [address] [place] [address] Dr. Carleen Underwood [age] Normal [facility] Comment on above: Performed By: #### H CVPCRR #### [facility] [address] [place] [address] Dr. Carleen Underwood Multiple Gestation No Normal [facility] Comment on above: Performed By: #### H CVPCRR #### [facility] [address] [place] [address] Dr. Carleen Underwood OSBR Risk 1 [place] [address] Normal [facility] Comment on above: Performed By: #### H CVPCRR #### [facility] [address] [place] [address] Dr. Carleen Underwood PDF . Normal [facility] Comment on above: Performed By: #### H CVPCRR #### [facility] [address] [address] [address] Carleen Underwood Race Normal [facility] Comment on above: Performed By: #### H CVPCRR #### [facility] [address] [address] [address] Carleen Underwood Test Results: Negative Normal [facility] Comment on above: Performed By: #### H CVPCRR #### [facility] [address] [address] [address] Carleen Underwood US PREG ANATOMY SINGLEon [...] by: FOUZIA CALERO Date: 2022-03-19 17:04 Normal [facility] GLUCOSE - 1HRon 02-14-2022 Glucose [Mass/Vol] 107 mg/dL Critically high 74-106 T he [facility] Comment on above: Performed By: #### H CVPCRR #### [facility] [address] [address] [address] Carleen Underwood HEP B SURFACE ANTIGEN SCREEN on 01-13-2022 HBsAg Screen Negative Normal Negative [facility] Comment on above: Performed By: #### H BSANS #### [facility] [address] [address] [address] Carleen Underwood HEPATITIS C VIRUS AB W/ REFL EX QUANTon 01-13-2022 HCV AB <0.1 Normal 0.0-0.9 [facility] Comment on above: Performed By: #### H CVPCRR #### [facility] [address] [place] [address] Dr. Carleen Underwood Interpretation: Comment Normal [facility] Comment on above: Result Comment: Nega tive Not infected with HCV, unless recent infection is suspected or other evidence exists to indicate HCV infection. Performed By: #### H CVPCRR #### [facility] [address] [address] [address] Carleen Underwood HIV 1 AND 2 WITH REFLEXon HIV Screen 4th Generation wRfx Non-Reactive Normal Non Reactive [facility] Comment on above: Result Comment: HIV Negative HIV-1/HIV-2 antibodies and HIV-1 p24 antigen were NOT detected. There is no laboratory evidence of HIV infection. Performed By: #### G LU1HR #### [facility] [address] [address] [address] Carleen Underwood RPR QUANTon 01-13-2022 Rapid Plasma Reagin, Quant Non-Reactive Normal NonRea<1:1 [facility] Comment on above: Result Comment: Plea se Note: This test does not meet current guidelines for screening and diagnosis of syphilis. This test is intended for following treatment response in patients being treated for syphilis infection. To screen for syphilis infection, a reflex cascade that includes both RPR and a treponema-specific assay should be utilized, such as Treponema pallidum (Syphilis) Screening [place] (224217) or Rapid Plasma Reagin (RPR) Test With Reflex to Quantitative RPR and Confirmatory Treponema pallidum Antibodies (951404). Performed By: #### H CVPCRR #### [facility] [address] [place] [address] Dr. Carleen Underwood RUBELLA AB IGGon 01-13-2022 Rubella Antibodies, IgG 4.86 index Normal Immune >0.99 [facility] Comment on above: Result Comment: Non- immune <0.90 Equivocal 0.90 - 0.99 Immune >0.99 Performed By: #### R UBIGG #### [facility] [address] [place] [address] Dr. Carleen Underwood CBC AUTO DIFFon 01-12-2022 BASO # 0.0 103/ul Normal 0.0-0.1 [facility] Comment on above: Performed By: #### C BC #### [facility] [address] [place] [address] Dr. Carleen Underwood Basophils/100 WBC (Bld) 0.4 % Normal 0.2-2.0 [facility] Comment on above: Performed By: #### C BC #### [facility] [address] [place] [address] Dr. Carleen Underwood EO # 0.1 103/ul Normal 0.0-0.7 [facility] Comment on above: Performed By: #### C BC #### [facility] [address] [place] [address] Dr. Carleen Underwood Eosinophils/100 WBC (Bld) 1.1 % Normal 0.9-7.0 [facility] Comment on above: Performed By: #### C BC #### [facility] [address] [place] [address] Dr. Carleen Underwood Erythrocyte distribution width (RBC) [Ratio] 14.5 % Normal 11.0-15.0 [facility] Comment on above: Performed By: #### C BC #### [facility] [address] [place] [address] Dr. Carleen Underwood Hematocrit (Bld) [Volume fraction] 35.8 % Critically low 36.0-48.0 [facility] Comment on above: Performed By: #### C BC #### [facility] [address] [place] [address] Dr. Carleen Underwood Hemoglobin (Bld) [Mass/Vol] 11.2 g/dL Critically low 12.0-16.0 [facility] Comment on above: Performed By: #### C BC #### [facility] [address] [place] [address] Dr. Carleen Underwood IG # 0.02 10e3/ul Normal 0.00-0.03 [facility] Comment on above: Performed By: #### C BC #### [facility] [address] [place] [address] Dr. Carleen Underwood IG % 0.4 % Normal 0.0-0.5 [facility] Comment on above: Performed By: #### C BC #### [facility] [address] [place] [address] Dr. Carleen Underwood LYMPH # 1.6 103/ul Normal 1.2-3.8 [facility] Comment on above: Performed By: #### C BC #### [facility] [address] [place] [address] Dr. Carleen Underwood Lymphocytes/100 WBC (Bld) 27.9 % Normal 20.5-60.0 [facility] Comment on above: Performed By: #### C BC #### [facility] [address] [place] [address] Dr. Carleen Underwood MANUAL DIFF REQ NO Normal [facility] Comment on above: Performed By: #### C BC #### [facility] [address] [place] [address] Dr. Carleen Underwood MCH (RBC) [Entitic mass] 26.1 pg Critically low 26.7-34.0 [facility] Comment on above: Performed By: #### C BC #### [facility] [address] [place] [address] Dr. Carleen Underwood MCHC (RBC) [Mass/Vol] 31.3 g/dL Normal 29.9-35.2 [facility] Comment on above: Performed By: #### C BC #### [facility] [address] [address] [address] Carleen Underwood MCV (RBC) [Entitic vol] 83.4 fL Normal 81.0-99.0 [facility] Comment on above: Performed By: #### C BC #### [facility] [address] [address] [address] Carleen Underwood MONO # 0.4 103/ul Normal 0.3-0.8 [facility] Comment on above: Performed By: #### C BC #### [facility] [address] [address] [address] Carleen Underwood Monocytes/100 WBC (Bld) 6.2 % Normal 1.7-12.0 [facility] Comment on above: Performed By: #### C BC #### [facility] [address] [place] [address] Dr. Carleen Underwood NEUT # 3.7 103/ul Normal 1.4-6.5 [facility] Comment on above: Performed By: #### C BC #### [facility] [address] [place] [address] Dr. Carleen Underwood Neutrophils/100 WBC (Bld) 64.0 % Normal 43.0-75.0 [facility] Comment on above: Performed By: #### C BC #### [facility] [address] [place] [address] Dr. Carleen Underwood Platelet mean volume (Bld) [Entitic vol] 10.3 fL Normal 9.5-13.5 [facility] Comment on above: Performed By: #### C BC #### [facility] [address] [place] [address] Dr. Carleen Underwood PLT 229 103/ul Normal 150-450 [facility] Comment on above: Performed By: #### C BC #### [facility] [address] [place] [address] Dr. Carleen Underwood RBC 4.29 106/ul Normal 4.20-5.40 [facility] Comment on above: Performed By: #### C BC #### [facility] [address] [place] [address] Dr. Carleen Underwood WBC 5.7 103/ul Normal 4.0-11.0 [facility] Comment on above: Performed By: #### C BC #### [facility] [address] [place] [address] Dr. Carleen Underwood CULTURE URINEon 01-12-2022 CULTURE URINE Culture Observations : LIGHT GROWTH OF MIXED GENITAL YULI. NO POTENTIAL PATHOGENS SEEN. Normal [facility] Comment on above: Performed By: #### U RCX #### [facility] [address] [place] [address] Dr. Carleen Underwood GLYCOHEMOGLOBIN A1Con 2021 ADA RECOMMENDATION SEE BELOW Normal [facility] Comment on above: Result Comment: ADA RECOMMENDED LIMIT 4.0 - 6.0 ADA THERAPEUTIC TARGET < 7.0 ACTION SUGGESTED > 7.0 Performed By: #### G LU1HR #### [facility] [address] [place] [address] Dr. Carleen Underwood Glucose [Mass/Vol] 100 mg/dL Normal [facility] Comment on above: Performed By: #### G LU1HR #### [facility] [address] [place] [address] Dr. Carleen Underwood HbA1c (Bld) [Mass fraction] 5.1 % Normal 4.5-6.2 [facility] Comment on above: Performed By: #### G LU1HR #### [facility] [address] [place] [address] Dr. Carleen Underwood EMILY BOX TEST PT SEND OUTo n 01-12-2022 SENT TO REF LAB 01/12/2022 Normal [facility] Comment on above: Performed By: #### H CVPCRR #### [facility] [address] [place] [address] Dr. Carleen Underwood TYPE AND SCREENon 01-12-2022 TYPE AND SCREEN Negative Normal [facility] Comment on above: Performed By: #### T NS #### [facility] [address] [place] [address] Dr. Carleen Underwood US PREG TVon 12-29-2021 [...] by: BRANDI ANN Date: 2021-12-29 16:07 Normal [facility] Coding Summary.on 02-12-2020 Coding Summary. CODING DATE: 020 FINAL [facility] STATUS: Home (Routine DC) PAYOR: [...] Esquivel Date Saved: 02/12/2020 10:10 am Normal [facility] Physician Orderon 02-07-2020 Physician Order [id number] Normal [facility] Vital Signs Date Time Vital Sign Value Performing Clinician Facility 07-15-2023 13:00-0500 Body height 170.81 cm Chery Aranda Other [facility] 07-15-2023 13:00-0500 Body mass index (BMI) [Ratio] 39.95 kg/m2 Chery Aranda Other [facility] 07-15-2023 13:00-0500 Body weight 116.58 kg Chery Aranda Other [facility] 07-15-2023 13:00-0500 Diastolic blood pressure 74 mm[Hg] Chery Aranda Other [facility] 07-15-2023 13:00-0500 Systolic blood pressure 107 mm[Hg] Chery Aranda Other [facility] 06-14-2023 13:30-0400 Body height 170.81 cm Chery Aranda Other [facility] 06-14-2023 13:30-0400 Body mass index (BMI) [Ratio] 39.42 kg/m2 Chery Aranda Other [facility] 06-14-2023 13:30-0400 Body weight 115.03 kg Chery Aranda Other [facility] 06-14-2023 13:30-0400 Diastolic blood pressure 72 mm[Hg] Chery Aranda Other [facility] 06-14-2023 13:30-0400 Systolic blood pressure 118 mm[Hg] Chery Aranda Other [facility] 05-16-2023 13:00-0400 Body height 170.81 cm Chery Aranda Other [facility] 05-16-2023 13:00-0400 Body mass index (BMI) [Ratio] 40.1 kg/m2 Chery Aranda Other [facility] 05-16-2023 13:00-0400 Body weight 117.03 kg Chery Aranda Other [facility] 05-16-2023 13:00-0400 Diastolic blood pressure 67 mm[Hg] Chery Aranda Other [facility] 05-16-2023 13:00-0400 Systolic blood pressure 102 mm[Hg] Chery Aranda Other [facility] 04-15-2023 13:00-0400 Body height 170.81 cm Chery Aranda Other [facility] 04-15-2023 13:00-0400 Body mass index (BMI) [Ratio] 41.35 kg/m2 Chery Aranda Other [facility] 04-15-2023 13:00-0400 Body weight 120.66 kg Chery Aranda Other [facility] 04-15-2023 13:00-0400 Diastolic blood pressure 71 mm[Hg] Chery Aranda Other [facility] 04-15-2023 13:00-0400 Systolic blood pressure 110 mm[Hg] Chery Aranda Other [facility] 03-22-2022 02:06-0400 Body weight 117.[address] BRANDI ANN [facility] Comment on above: Performed By: #### HCVPCRR #### [facility] [address] [place] [address] Dr. Carleen Underwood Encounters Encounter Date Encounter Type Care Provider Facility Start: 01-08-2024 End: 01-08-2024 ambulatory FRIEDA MILLS Not Available Start: 12-25-2023 End: 12-25-2023 ambulatory DINH MARROUQIN Not Available Start: 12-11-2023 End: 12-11-2023 ambulatory DINH AYDE Not Available Start: 11-27-2023 End: 11-27-2023 ambulatory FRIEDA GENE Not Available Start: 11-13-2023 End: 11-13-2023 ambulatory DINH AYDE Not Available Start: 10-17-2023 End: 10-18-2023 ambulatory COLIN BOWLING [facility] Start: 10-16-2023 End: 10-16-2023 ambulatory DINH AYDE Not Available Start: 10-04-2023 Chart abstracting Chao Marmolejo MD Work Phone: [facility] Start: 09-18-2023 End: 09-18-2023 ambulatory FRIEDA MILLS Not Available Start: 08-20-2023 End: 08-20-2023 ambulatory DINH AYDE Not Available Start: 07-26-2023 End: 07-26-2023 ambulatory DINH AYDE Not Available Start: 07-15-2023 End: 07-15-2023 ambulatory Chery Aranda Other [facility] Other Start: 07-15-2023 Office outpatient vi sit 10 minutes Chery Aranda [facility] Start: 06-14-2023 End: 06-14-2023 ambulatory Chery Aranda Other [facility] Start: 06-14-2023 Office outpatient vi sit 10 minutes Chery Aranda [facility] Start: 05-16-2023 End: 05-16-2023 ambulatory Chery Aranda Other [facility] Start: 05-16-2023 Office outpatient vi sit 10 minutes Chery Aranda [facility] Start: 04-15-2023 End: 04-15-2023 ambulatory Chery Aranda Other [facility] Start: 04-15-2023 Office outpatient ne w 45 minutes Chery Aranda [facility] Start: 07-31-2022 End: 07-31-[address] [...] Start: 10-22-2023 End: 10-22-2023 Patient encounter procedure [facility] Start: 04-26-2023 Influenza vaccination Influenza Vacc ine [facility] Start: 2011 Screening for malign ant neoplasm of cervix Pap Smear [facility] Start: 2009 DTaP,Tdap and Td Vaccines (1 - Tdap) DTaP,Tdap and Td Vaccines (1 - Tdap) [facility] Start: 2008 Adult BMI Screening Adult BMI Screen ing [facility] Start: 2002 Depression Screening Depression Scre ening [facility] Start: 2002 Tobacco Screening Tobacco Screening [facility] Immunizations Immunization Date Immunization Notes Care Provider Malachi hernández 09-08-2019 influenza virus vaccine, unspecified formulation Chao Ling MD Work Phone: [facility] Payers Date Payer Category Payer Private Health Insurance [employer] A ETNA POS [id number] 2017-Present [phone] [address] [place] [address] [id number] 1990 Unknown [id number] 2..840.1.989564.3.579.2.5 93 1990 Unknown [id number] 2.16.840.1.742032.3.579.2.5 93 1990 Unknown [id number] 2.16.840.1.240862.3.579.2.5 93 1990 Unknown [id number] 2.16.840.1.033544.3.579.2.5 93 1990 Unknown [id number] 2.16.840.1.437961.3.579.2.5 93 1990 Unknown [id number] 2.16.840.1.103422.3.579.2.5 93 1990 Unknown [id number] 2.16.840.1.991931.3.579.2.5 93 1990 Unknown [id number] 2.16.840.1.654597.3.579.2.5 1990 Unknown [id number] 2.16.840.1.420840.3.579.2.5 93 1990 Unknown [id number] 2.16.840.1.841807.3.579.2.5 1990 Unknown [id number] 2.16.840.1.411504.3.579.2.5 93 1990 Unknown [id number] 2.16.840.1.218254.3.579.2.5 1990 Unknown [id number] 2.16.840.1.383004.3.579.2.5 1990 Unknown [id number] 2.16.840.1.340406.3.579.2.5 1990 Unknown [id number] 2.16.840.1.541043.3.579.2.5 1990 Unknown [id number] 2.16.840.1.432842.3.579.2.5 1990 Unknown [id number] 2.16.840.1.709074.3.579.2.5 93 1990 Unknown [id number] 2.16.840.1.662615.3.579.2.5 1990 Unknown [id number] 2.16.840.1.504922.3.579.2.1 259 1990 Unknown [id number] 2.16.840.1.269017.3.579.2.1 259 1990 Unknown [id number] 2.16.840.1.012793.3.579.2.1 259 1990 Unknown [id number] 2.16.840.1.463026.3.579.2.1 259 1990 Unknown [id number] 2.16.840.1.154310.3.579.2.1 259 1990 Unknown [id number] 2.16.840.1.962869.3.579.2.1 259 1990 Unknown [id number] 2.16.840.1.196808.3.579.2.1 259 1990 Unknown [id number] 2.16.840.1.275041.3.579.2.1 259 1990 Unknown [id number] 2.16.840.1.761273.3.579.2.1 259 1959 Private Health Insurance [id number] 1959 Unknown [id number] Unknown [id number] 2.16.840.1.776434.3.579.2.5 93 Social History Date Type Detail Facility Unknown if ever smoked [facility] Other Start: 10-06-2020 End: 10-04-2023 Sex Assigned At [facility] Start: 09-11-2019 Tobacco smoking stat [facility] Never smoked tobacco [facility] Start: 09-11-2019 Tobacco use and exposure Smokeless tobacco non-user [facility] Start: 10-04-2023 Alcohol intake Ex-drinker (finding) [facility] Start: 10-06-2020 End: 10-04-2023 History of Social function [facility] Childcare Unknown [facility] Start: 05-30-2023 [facility] Start: 1990 Sex Assigned At Not on file P [facility] Evaluation note 07-15-2023 Note Date & Type Note Facility 07-15-2023 Evaluation note Encounter Date Diagnosis Assessment Notes Jun, First trimester (ICD-10 - Z34.91) Continued followup w Dr. Marroquin. No further adipex. [facility] Other Evaluation note 06-14-2023 Note Date & [...] index [BMI] 39.0-39.9, adult (ICD-10 - Z68.39) [facility] Other Evaluation note 05-16-2023 Note Date & [...] index [BMI] 40.0-44.9, adult (ICD-10 - Z68.41) [facility] Other Evaluation note 04-15-2023 Note Date & [...] index [BMI] 40.0-44.9, adult (ICD-10 - Z68.41) [facility] Other History general Narrative - Reported Note Date & Type Note Facility History general Narrative - Reported Type Surgical History T & A 2010 Surgical History Gallbladder 2012 [facility] Other History general Narrative - Reported Note Date & Type Note Facility History general Narrative - Reported Type Surgical History T & A 2010 Surgical History Gallbladder 2013 Hospitalization History see surgical hx [facility] Other History general Narrative - Reported Note [...] Gallbladder 2012 Hospitalization History see surgical hx [facility] Other Instructions Note Date & Type Note [...] section and content) DATE CREATED AUTHOR [facility]11/2020 [facility] DATE CREATED AUTHOR AUTHOR'S ORGANIZ ATION 08/04/2022 [facility] DATE CREATED AUTHOR AUTHOR'S ORGANIZ ATION 01/08/2024 [facility] DATE CREATED AUTHOR AUTHOR'S ORGANIZ ATION 01/10/2024 [facility] EPIC REASON FOR VISIT (unrecogniz ed section and content) ESTABLISH CARE1 month Follow up1 month Follow up1 month Follow up Care Teams (unrecognized sec tion and content) Striper Relationship Specialty Start Date End Date Pola Osei, [employer] AGENT [address] [facility] [address] [place] [address] PCP - General 12/29/16 FOR RECORDS PERTAINING [...] BE BASED ON THE PRIMARY CLINICAL RECORDS. [facility]. provides no warranty or guarantee of the accuracy or completeness of information in this document.
[2024-01-11 11:13] LABS: Basophils Percent Auto 0.3 % (0.2-2.0); Eosinophils Percent Auto 0.1 % (0.9-7.0); Hematocrit 27.8 % (36.0-48.0); Hemoglobin 8.7 g/dL (12.0-16.0); Immature Granulocytes Abs Auto 0.12 10^3/uL (0.00-0.03); Immature Granulocytes Pct Auto 1.8 % (0.0-0.5); Lymphocytes Absolute Auto 2.1 10^3/uL (1.2-3.8); Lymphocytes Percent Auto 30.7 % (20.5-60.0); Mean Corpuscular HGB Conc 31.3 g/dL (29.9-35.2); Mean Corpuscular Hemoglobin 24.4 pg (26.7-34.0); Mean Corpuscular Volume 78.1 fL (81.0-99.0); Mean Platelet Volume 11.3 fL (9.5-13.5); Monocytes Absolute Auto 0.4 10^3/uL (0.3-0.8); Monocytes Percent Auto 6.3 % (1.7-12.0); Neutrophils Absolute Auto 4.1 10^3/uL (1.4-6.5); Neutrophils Percent Auto 60.8 % (43.0-75.0); Platelet Count 190 10^3/uL (150-450); Red Blood Count 3.56 10^6/uL (4.20-5.40); Red Cell Distribution Width 14.6 % (11.0-15.0); White Blood Count 6.7 10^3/uL (4.0-11.0)
[2024-01-11 11:24] LABS: Creatinine Urine Random <13.00 mg/dL (20.00-300.00); Total Protein Urine Random 46.9 mg/dL (<=11.9)
[2024-01-11 11:28] LABS: Albumin Globulin Ratio 0.6; Albumin Level 2.3 g/dL (3.4-5.0); Anion Gap 11.9; BUN Creatinine Ratio 17.7; Bilirubin Total 0.2 mg/dL (0.2-1.0); Carbon Dioxide 24.1 mmol/L (21.0-32.0); Chloride 106 mmol/L (98-107); Estimated GFR (African America >60 (>=60); Estimated GFR (Non-African Ame >60 (>=60); Globulin 3.9 g/dL; Glucose 80 mg/dL (74-106); Sodium 138 mmol/L (136-145); Total Protein 6.2 g/dL (6.4-8.2); Uric Acid 7.1 mg/dL (2.6-6.0)
[2024-01-11 11:39] LABS: Alanine Aminotransferase 12 U/L (14-59); Alkaline Phosphatase 165 U/L (46-116); Aspartate Amino Transferase 12 U/L (15-37)
--- NOTE | 2024-01-11 12:10 | PC.NURSE ---
1200 - Dr. Solis called & all labs reported. States is probably going to transer pt as Protein/ Cr. ratio is high at 3.0. States will be in. 1210 - Pt informed of probable plan. Support person present & supportive. Pt gets emotional & tearful. Reassurance given.
--- NOTE | 2024-01-11 13:10 | PC.NURSE ---
Dr. Solis in & talks to pt regarding labs & transfer to [facility]. On phone to talk to [facility] to arrange transfer.
--- NOTE | 2024-01-11 13:45 | P.OBHP_ITS ---
OB - H&P: HPI History of Present Illness Chief complaint: OBSERVATION DRESED FETUS MOVEMENT : 10 Para: 5 Date of last menstrual period: 02/19/2023 Gestational age based on last menstrual period: 34wk 2days History of Present Dating criteria: LMP confirmed by 1st trimester US care: good care complications: preeclampsia and induced hypertension Medical complications OB: none Labs Blood type: A (+) positive Rubella: immune RPR/VDLR: nonreactive HBsAG: negative Review of Systems ROS Status of ROS: 10 or more systems reviewed and unremarkable except as noted in history and below PFSH Reproductive Health History : 10 Para: 5 Meds Home Medications and Allergies Home Medications ?Medication ?Instructions ?Recorded ?Confirmed ?Type azithromycin 250 mg tablet See Rx Instructions PO .COMPLEX #6 01/09/24 Rx tabs labetalol 200 mg tablet 200 mg PO BID 30 days #60 tabs 01/09/24 Rx Allergies Allergy/AdvReac Type Severity Reaction Status Date / Time No Known Drug Allergies Allergy Verified 06/09/23 15:05 Exam Constitutional Vital Signs, click to edit/add: Last Vital Signs Pulse 63 01/11/24 13:03 BP 174/89 H 01/11/24 13:03 Documenting provider has reviewed patient's vital signs: yes Common normals: no apparent distress HENMT Common normals: normocephalic Eye Common normals: PERRL and EOMs intact bilaterally Neck & C-Spine Common normals: full ROM and no lymphadenopathy Lymph Lymphatic: no lymphadenopathy noted Chest Common normals: inspection of chest normal Respiratory Common normals: normal respiratory effort Cardio Common normals: regular rate and regular rhythm GI Common normals: soft to palpation and non-tender Other: gravid Common normals: no CVA tenderness Back & Pelvis Common normals: no CVA tenderness Extremity Common normals: normal to inspection and full ROM Neuro Common normals: oriented x3 Psych Common normals: mental status grossly normal Results Labs Labs: Short CBC 01/11/24 Range/Units 11:01 WBC 6.7 (4.0-11.0) 10^3/uL Hgb 8.7 L (12.0-16.0) g/dL Hct 27.8 L (36.0-48.0) % Plt Count 190 (150-450) 10^3/uL BMP 01/11/24 11:01 Sodium 138 Potassium 4.0 Chloride 106 Carbon Dioxide 24.1 BUN 11.0 Creatinine 0.62 Glucose 80 Calcium 9.0 Liver Function 01/11/24 Range/Units 11:01 Total Bilirubin 0.2 (0.2-1.0) mg/dL AST 12 L (15-37) U/L ALT 12 L (14-59) U/L Alkaline Phosphatase 165 H (46-116) U/L Albumin 2.3 L (3.4-5.0) g/dL OB - A/P Assessment and Plan (1) Preeclampsia: Assessment and Plan: 34 wk 2day, started on LABETOLOL 200mg BID - did take AM dose Celestone given 01/07 and 01/08 Severe preeclamptic Procardia SL not available in pharmacy here IV - Hydralazine 10mg - follow Hypertensive protocol Abnormal labs with Uric A -7.1 (7.3 - 5/15) Urine Protein/Creatinine ratio - 3.0 Qualifiers: Trimester: third trimester Qualified Code(s): O14.93 - Unspecified pre- eclampsia, third trimester Plan Transfer to [employer] [facility] Dr Meredith, MFM accepts transfer
[2024-01-11] MEDS: 0.9 % SODIUM CHLORIDE 1,000 ML 75 ML IV (14:23)
[2024-01-11] MEDS: HYDRALAZINE HCL 20 MG/ML VIAL 10 MG IVP (14:25)
[2024-01-11] MEDS: MAGNESIUM SULFATE IN WATER 40 GM/1,000 ML IV.SOLN IV (15:21)
--- OUTSIDE RECORDS SUMMARY | 2024-01-14 10:13 | XMS_ITS | CCD ---
Author Organization [facility] Care Team Providers Care Fabrication Supervisor Name Role Phone WEST, DR BRANDI Quinonez [...] TAO Admitting Unavailable Chery Aranda Unavailable Sea TECHNICAL INFORMATION SPECIALIST-MEDICAL CASE WORKEREn Primary Care Provider COLIN BOWLIGN Referring Unavailable DINH MARROQUIN Primary Care Unavailable AYDE, DINH Attending Unavailable GENE, FRIEDA Attending Unavailable AYDE, DINH Attending Unavailable AYDE, DINH Attending Unavailable FRIEDA MILLS Attending Unavailable AYDE, DINH Attending Unavailable AYDE, DINH Attending Unavailable FRIEDA MILLS Attending Unavailable BRANDI LAST Admitting Unavailable SHALA, BRANDI Nixon Attending Unavailable DEE DERAS Referring Unavailable EN OSEI Primary Care Unavailable FRANKO HEMPHILL Consulting Unavailable MOISES DORANTES Consulting Unavailable EN OSEI Referring Unavailable EN OSEI Primary Care Unavailable Medications Current Medications Medication [...] Active Start: 05-16-2023 take 1 capsule by [facility] every twenty-four hours Phentermine HCl 37.5 MG 1 capsule Orally Once a day for 30 days Apr, Active Start: 04-15-2023 take 1 capsule by [facility] every twenty-four hours Phentermine HCl 37.5 MG 1 capsule Orally Once a day for 30 days Mar, Active [id number] ac id 29 mg iron- 1 mg tablet,chewable (1 source) vit37-i hebert-folic acid 29 mg iron- 1 mg tablet,chewable Chew 1 tablet and swallow daily. 0 Active Problems Active Problems Problem Classification Problem Date Documented Da te Episodic/Chronic Deficiency and other anemia (1 source) Anemia, unspecified; Translations: [ANEMIA UNSPECIFIED] Onset: 08-03-2022 Episodic Essential hypertension (1 source) Hypertensive disorder Onset: 01-11-2024 Chronic Hypertension complicating ; childbirth and the puerperium (3 sources) Severe pre-eclampsia, unspecified trimester; Translations: [Pre-eclampsia] Onset: 01-11-2024 Episodic Menstrual disorders (4 sources) Irregular menstruation, [...] Test Name Value Interpretation Reference Range Facility CBC AND AUTO DIFFon 20- 24 ABSOLUTE BASOPHIL 0.0 X10E9/L Normal 0.0-0.2 [facility] Comment on above: Performed By: #### C BCA, CMP, 2532-0, 3084-1, FEPR, 2276-4, 96499-0 #### [facility] ([id number]) [address], [address] [place] [address] ABSOLUTE NEUTROPHIL 7.6 X10E9/L High 1.5-6.6 [facility] Comment on above: Performed By: #### C BCA, CMP, 2532-0, 3084-1, FEPR, 2276-4, 51838-8 #### [facility] ([id number]) [address] [address] [place] [address] Basophils/100 WBC (Bld) 0.3 % Normal [facility] Comment on above: Performed By: #### C BCA, CMP, 2532-0, 3084-1, FEPR, 6-4, 01249-6 #### [facility] ([id number]) [address] [address] Eosinophils (Bld) [#/Vol] 0.0 10*3/uL Normal 0.0-0.4 [facility] Comment on above: Performed By: #### C BCA, CMP, 2532-0, 3084-1, FEPR, 2276-4, 25693-6 #### [facility] ([id number]) [address] [address] [place] [address] Eosinophils/100 WBC (Bld) 0.1 % Normal [facility] Comment on above: Performed By: #### C BCA, CMP, 2532-0, 3084-1, FEPR, 2276-4, 18797-5 #### [facility] ([id number]) [address], [facility] [place] [address] [place] [address] Erythrocyte distribution width (RBC) [Ratio] 15.2 % High 11.5-15.0 [facility] Comment on above: Performed By: #### C BCA, CMP, 2532-0, 3084-1, FEPR, 2276-4, 85216-8 #### [facility] ([id number]) [address], [address] [place] [address] Hematocrit (Bld) [Volume fraction] 23.2 % Low 35-47 [facility] Comment on above: Performed By: #### C BCA, CMP, 2532-0, 3084-1, FEPR, 6-4, 52390-6 #### [facility] ([id number]) [address], [facility] [place] [address] [place] [address] Hemoglobin (Bld) [Mass/Vol] 7.8 g/dL Low 11.7-15.5 [facility] Comment on above: Performed By: #### C BCA, CMP, 2532-0, 3084-1, FEPR, 6-4, 55510-4 #### [facility] ([id number]) [address], [facility] [place] [address] [place] [address] Lymphocytes (Bld) [#/Vol] 1.9 10*3/uL Normal 1.0-3.5 [facility] Comment on above: Performed By: #### C BCA, CMP, 2532-0, 3084-1, FEPR, 6-4, 84389-0 #### [facility] ([id number]) [address] [address] Lymphocytes/100 WBC (Bld) 18.8 % Normal [facility] Comment on above: Performed By: #### C BCA, CMP, 2532-0, 3084-1, FEPR, 2276-4, 98444-5 #### [facility] ([id number]) [address] [address] [place] [address] MCH (RBC) [Entitic mass] 25.1 pg Low 27-34 [facility] Comment on above: Performed By: #### C BCA, CMP, 2532-0, 3084-1, FEPR, 2276-4, 71825-2 #### [facility] ([id number]) [address], [address] [place] [address] MCHC (RBC) [Mass/Vol] 33.8 g/dL Normal 32-36 [facility] Comment on above: Performed By: #### C BCA, CMP, 2532-0, 3084-1, FEPR, 6-4, 89788-7 #### [facility] ([id number]) [address], [address] [place] [address] MCV (RBC) [Entitic vol] 74 fL Low 80-100 [facility] Comment on above: Performed By: #### C BCA, CMP, 2532-0, 3084-1, FEPR, 6-4, 36471-5 #### [facility] ([id number]) [address], [address] [place] [address] Monocytes (Bld) [#/Vol] 0.7 10*3/uL Normal 0-0.9 [facility] Comment on above: Performed By: #### C BCA, CMP, 2532-0, 3084-1, FEPR, 6-4, 17730-9 #### [facility] ([id number]) [address], [address] [place] [address] Monocytes/100 WBC (Bld) 6.7 % Normal [facility] Comment on above: Performed By: #### C BCA, CMP, 2532-0, 3084-1, FEPR, 6-4, 22328-0 #### [facility] ([id number]) [address], [address] [place] [address] Neutrophils/100 WBC (Bld) 74.1 % Normal [facility] Comment on above: Performed By: #### C BCA, CMP, 2532-0, 3084-1, FEPR, 2276-4, 49251-4 #### [facility] ([id number]) [address], [address] [place] [address] Platelet mean volume (Bld) [Entitic vol] 9.2 fL Normal 7-12 [facility] Comment on above: Performed By: #### C BCA, CMP, 2532-0, 3084-1, FEPR, 2276-4, 37779-2 #### [facility] ([id number]) [address], [address] [address] Platelets (Bld) [#/Vol] 177 10*3/uL Normal 150-450 [facility] Comment on above: Performed By: #### C BCA, CMP, 2532-0, 3084-1, FEPR, 2276-4, 74155-3 #### [facility] ([id number]) [address], [address] [place] [address] RBC COUNT 3.13 X10E12/L Low 3.80-5.20 [facility] Comment on above: Performed By: #### C BCA, CMP, 2532-0, 3084-1, FEPR, 2276-4, 02579-0 #### [facility] ([id number]) [address] [address] WBC (Bld) [#/Vol] 10.2 10*3/uL Normal 4.0-11.0 [facility] Comment on above: Performed By: #### C BCA, CMP, 2532-0, 3084-1, FEPR, 2276-4, 99271-9 #### [facility] ([id number]) [address], [address] [place] [address] COMPREHENSIVE METABOLIC PANE Vinay 01-13-2024 Albumin [Mass/Vol] 2.6 g/dL Low 3.2-5.3 [facility] Comment on above: Performed By: #### C BCA, CMP, 2532-0, 3084-1, FEPR, 2276-4, 65535-8 #### [facility] ([id number]) [address], [address] [place] [address] ALP [Catalytic activity/Vol] 133 U/L High 39-130 [facility] Comment on above: Performed By: #### C BCA, CMP, 2532-0, 3084-1, FEPR, 2276-4, 05801-5 #### [facility] ([id number]) [address], [address] [place] [address] ALT [Catalytic activity/Vol] 7 U/L Normal 0-31 [facility] Comment on above: Performed By: #### C BCA, CMP, 2532-0, 3084-1, FEPR, 2276-4, 67478-7 #### [facility] ([id number]) [address], [address] [place] [address] Anion gap [Moles/Vol] 8 mmol/L Normal 5-15 [facility] Comment on above: Performed By: #### C BCA, CMP, 2532-0, 3084-1, FEPR, 2276-4, 39723-0 #### [facility] ([id number]) [address], [address] [place] [address] AST [Catalytic activity/Vol] 16 U/L Normal 0-41 [facility] Comment on above: Performed By: #### C BCA, CMP, 2532-0, 3084-1, FEPR, 2276-4, 27701-4 #### [facility] ([id number]) [address], [address] [place] [address] Bilirubin [Mass/Vol] 0.2 mg/dL Low 0.3-1.2 [facility] Comment on above: Performed By: #### C BCA, CMP, 2532-0, 3084-1, FEPR, 2276-4, 80560-1 #### [facility] ([id number]) [address], [facility] [place] [address] [place] [address] Calcium [Mass/Vol] 6.2 mg/dL Critically low 8.5-10.[address] [facility] Comment on above: Performed By: #### C BCA, CMP, 2532-0, 3084-1, FEPR, 2276-4, 92488-5 #### [facility] ([id number]) [address], [facility] [place] [address] [place] [address] Chloride [Moles/Vol] 100 mmol/L Normal 98-109 [facility] Comment on above: Performed By: #### C BCA, CMP, 2532-0, 3084-1, FEPR, 2276-4, 94733-7 #### [facility] ([id number]) [address], [address] [place] [address] CO2 [Moles/Vol] 24 mmol/L Normal 22-32 [facility] Comment on above: Performed By: #### C BCA, CMP, 2532-0, 3084-1, FEPR, 2276-4, 15810-4 #### [facility] ([id number]) [address], [facility] [place] [address] [place] [address] Creatinine [Mass/Vol] 0.64 mg/dL Normal 0.40-1.00 [facility] Comment on above: Result Comment: METH OD TRACEABLE TO IDMS STANDARD Performed By: #### C BCA, CMP, 2532-0, 3084-1, FEPR, 2276-4, 55868-4 #### [facility] ([id number]) [address], [address] [place] [address] eGFR (CKD-EPI) NON-RACE DEPENDENT >90 Normal >59 [facility] Comment on above: Result Comment: Reported eGFR is based on the CKD-EPI 2021 equation that does not use a race coefficient. Performed By: #### C BCA, CMP, 2532-0, 3084-1, FEPR, 2276-4, 44030-4 #### [facility] ([id number]) [address], [address] [place] [address] Glucose [Mass/Vol] 75 mg/dL Normal 65-99 [facility] Comment on above: Performed By: #### C BCA, CMP, 2532-0, 3084-1, FEPR, 2276-4, 74793-8 #### [facility] ([id number]) [address], [address] [place] [address] Potassium [Moles/Vol] 4.3 mmol/L Normal 3.5-5.0 [facility] Comment on above: Performed By: #### C BCA, CMP, 2532-0, 3084-1, FEPR, 6-4, 87477-8 #### [facility] ([id number]) [address], [address] [place] [address] Protein [Mass/Vol] 5.2 g/dL Low 6.0-8.0 [facility] Comment on above: Performed By: #### C BCA, CMP, 2532-0, 3084-1, FEPR, 6-4, 76822-7 #### [facility] ([id number]) [address], [address] [place] [address] Sodium [Moles/Vol] 132 mmol/L Low 134-146 [facility] Comment on above: Performed By: #### C BCA, CMP, 2532-0, 3084-1, FEPR, 2276-4, 02111-7 #### [facility] ([id number]) [address], [address] [place] [address] Urea nitrogen [Mass/Vol] 9 mg/dL Normal 5-23 [facility] Comment on above: Performed By: #### C BCA, CMP, 2532-0, 3084-1, FEPR, 2276-4, 92856-6 #### [facility] ([id number]) [address], [address] [place] [address] CBC AND AUTO DIFFon 01-12-20 24 ABSOLUTE BASOPHIL 0.0 X10E9/L Normal 0.0-0.2 [facility] Comment on above: Performed By: #### C BCA, CMP, 2532-0, 3084-1, FEPR, 6-4, 72240-1 #### [facility] ([id number]) [address], [address] [place] [address] ABSOLUTE NEUTROPHIL 12.4 X10E9/L High 1.5-6.6 [facility] Comment on above: Performed By: #### C BCA, CMP, 2532-0, 4-1, FEPR, 6-4, 60032-9 #### [facility] ([id number]) [address], [address] [place] [address] Basophils/100 WBC (Bld) 0.2 % Normal [facility] Comment on above: Performed By: #### C BCA, CMP, 2532-0, 3084-1, FEPR, 6-4, 09698-7 #### [facility] ([id number]) [address], [address] [place] [address] Eosinophils (Bld) [#/Vol] 0.0 10*3/uL Normal 0.0-0.4 [facility] Comment on above: Performed By: #### C BCA, CMP, 2532-0, 3084-1, FEPR, 2276-4, 78167-4 #### [facility] ([id number]) [address], [address] [place] [address] Eosinophils/100 WBC (Bld) 0.1 % Normal [facility] Comment on above: Performed By: #### C BCA, CMP, 2532-0, 3084-1, FEPR, 6-4, 65354-4 #### [facility] ([id number]) [address], [facility] [place] [address] [place] [address] Erythrocyte distribution width (RBC) [Ratio] 15.5 % High 11.5-15.0 [facility] Comment on above: Performed By: #### C BCA, CMP, 2532-0, 3084-1, FEPR, 6-4, 16098-1 #### [facility] ([id number]) [address] [address] [place] [address] Hematocrit (Bld) [Volume fraction] 25.6 % Low 35-47 [facility] Comment on above: Performed By: #### C BCA, CMP, 2532-0, 4-1, FEPR, 2275-4, 50085-5 #### [facility] ([id number]) [address] [address] Hemoglobin (Bld) [Mass/Vol] 8.5 g/dL Low 11.7-15.5 [facility] Comment on above: Performed By: #### C BCA, CMP, 2532-0, 4-1, FEPR, 2275-4, 09891-4 #### [facility] ([id number]) [address] [address] Lymphocytes (Bld) [#/Vol] 1.0 10*3/uL Normal 1.0-3.5 [facility] Comment on above: Performed By: #### C BCA, CMP, 2532-0, 3084-1, FEPR, 6-4, 42104-3 #### [facility] ([id number]) [address] [address] Lymphocytes/100 WBC (Bld) 6.9 % Normal [facility] Comment on above: Performed By: #### C BCA, CMP, 2532-0, 3084-1, FEPR, 6-4, 36750-4 #### [facility] ([id number]) [address], [address] [place] [address] MCH (RBC) [Entitic mass] 24.4 pg Low 27-34 [facility] Comment on above: Performed By: #### C BCA, CMP, 2532-0, 3084-1, FEPR, 6-4, 80713-6 #### [facility] ([id number]) [address], [address] [place] [address] MCHC (RBC) [Mass/Vol] 33.2 g/dL Normal 32-36 [facility] Comment on above: Performed By: #### C BCA, CMP, 2532-0, 3084-1, FEPR, 6-4, 87288-8 #### [facility] ([id number]) [address], [address] [place] [address] MCV (RBC) [Entitic vol] 73 fL Low 80-100 [facility] Comment on above: Performed By: #### C BCA, CMP, 2532-0, 3084-1, FEPR, 2275-4, 71905-6 #### [facility] ([id number]) [address], [address] [place] [address] Monocytes (Bld) [#/Vol] 0.7 10*3/uL Normal 0-0.9 [facility] Comment on above: Performed By: #### C BCA, CMP, 2532-0, 3084-1, FEPR, 6-4, 31963-0 #### [facility] ([id number]) [address] [address] [place] [address] Monocytes/100 WBC (Bld) 5.0 % Normal [facility] Comment on above: Performed By: #### C BCA, CMP, 2532-0, 3084-1, FEPR, 6-4, 61491-9 #### [facility] ([id number]) [address], [address] [place] [address] Neutrophils/100 WBC (Bld) 87.8 % Normal [facility] Comment on above: Performed By: #### C BCA, CMP, 2532-0, 3084-1, FEPR, 2276-4, 73714-4 #### [facility] ([id number]) [address], [address] [place] [address] Platelet mean volume (Bld) [Entitic vol] 9.3 fL Normal 7-12 [facility] Comment on above: Performed By: #### C BCA, CMP, 2532-0, 3084-1, FEPR, 2276-4, 20524-6 #### [facility] ([id number]) [address], [address] [place] [address] Platelets (Bld) [#/Vol] 192 10*3/uL Normal 150-450 [facility] Comment on above: Performed By: #### C BCA, CMP, 2532-0, 3084-1, FEPR, 2276-4, 03261-2 #### [facility] ([id number]) [address], [facility] [place] [address] [place] [address] RBC COUNT 3.49 X10E12/L Low 3.80-5.20 [facility] Comment on above: Performed By: #### C BCA, CMP, 2532-0, 3084-1, FEPR, 2276-4, 41192-6 #### [facility] ([id number]) [address] [address] [place] [address] WBC (Bld) [#/Vol] 14.1 10*3/uL High 4.0-11.0 [facility] Comment on above: Performed By: #### C BCA, CMP, 2532-0, 3084-1, FEPR, 2276-4, 59420-1 #### [facility] ([id number]) [address], [address] [place] [address] ABSOLUTE BASOPHIL 0.0 X10E9/L Normal 0.0-0.2 [facility] Comment on above: Performed By: #### C BCA, CMP, 2532-0, 3084-1, FEPR, 2276-4, 99033-9 #### [facility] ([id number]) [address], [address] [place] [address] ABSOLUTE NEUTROPHIL 8.2 X10E9/L High 1.5-6.6 [facility] Comment on above: Performed By: #### C BCA, CMP, 2532-0, 3084-1, FEPR, 6-4, 48686-8 #### [facility] ([id number]) [address], [address] [place] [address] Basophils/100 WBC (Bld) 0.3 % Normal [facility] Comment on above: Performed By: #### C BCA, CMP, 2532-0, 3084-1, FEPR, 6-4, 04872-8 #### [facility] ([id number]) [address], [address] [place] [address] Eosinophils (Bld) [#/Vol] 0.0 10*3/uL Normal 0.0-0.4 [facility] Comment on above: Performed By: #### C BCA, CMP, 2532-0, 3084-1, FEPR, 2276-4, 94148-4 #### [facility] ([id number]) [address], [address] [place] [address] Eosinophils/100 WBC (Bld) 0.2 % Normal [facility] Comment on above: Performed By: #### C BCA, CMP, 2532-0, 3084-1, FEPR, 2276-4, 85239-9 #### [facility] ([id number]) [address] [address] [place] [address] Erythrocyte distribution width (RBC) [Ratio] 15.4 % High 11.5-15.0 [facility] Comment on above: Performed By: #### C BCA, CMP, 2532-0, 3084-1, FEPR, 2276-4, 94102-8 #### [facility] ([id number]) [address] [address] [place] [address] Hematocrit (Bld) [Volume fraction] 24.4 % Low 35-47 [facility] Comment on above: Performed By: #### C BCA, CMP, 2532-0, 3084-1, FEPR, 6-4, 21026-2 #### [facility] ([id number]) [address] [address] Hemoglobin (Bld) [Mass/Vol] 8.1 g/dL Low 11.7-15.5 [facility] Comment on above: Performed By: #### C BCA, CMP, 2532-0, 3084-1, FEPR, 6-4, 68340-4 #### [facility] ([id number]) [address] [address] Lymphocytes (Bld) [#/Vol] 1.2 10*3/uL Normal 1.0-3.5 [facility] Comment on above: Performed By: #### C BCA, CMP, 2532-0, 3084-1, FEPR, 2276-4, 04150-0 #### [facility] ([id number]) [address] [address] Lymphocytes/100 WBC (Bld) 11.9 % Normal [facility] Comment on above: Performed By: #### C BCA, CMP, 2532-0, 3084-1, FEPR, 2276-4, 57875-6 #### [facility] ([id number]) [address] [address] MCH (RBC) [Entitic mass] 24.7 pg Low 27-34 [facility] Comment on above: Performed By: #### C BCA, CMP, 2532-0, 3084-1, FEPR, 2276-4, 92040-9 #### [facility] ([id number]) [address], [facility] [place] [address] [place] [address] MCHC (RBC) [Mass/Vol] 33.3 g/dL Normal 32-36 [facility] Comment on above: Performed By: #### C BCA, CMP, 2532-0, 3084-1, FEPR, 6-4, 87696-0 #### [facility] ([id number]) [address], [facility] [place] [address] [place] [address] MCV (RBC) [Entitic vol] 74 fL Low 80-100 [facility] Comment on above: Performed By: #### C BCA, CMP, 2532-0, 3084-1, FEPR, 6-4, 87779-8 #### [facility] ([id number]) [address], [facility] [place] [address] [place] [address] Monocytes (Bld) [#/Vol] 0.4 10*3/uL Normal 0-0.9 [facility] Comment on above: Performed By: #### C BCA, CMP, 2532-0, 3084-1, FEPR, 6-4, 55322-4 #### [facility] ([id number]) [address], [facility] [place] [address] [place] [address] Monocytes/100 WBC (Bld) 3.7 % Normal [facility] Comment on above: Performed By: #### C BCA, CMP, 2532-0, 3084-1, FEPR, 2276-4, 04991-6 #### [facility] ([id number]) [address], [address] [place] [address] Neutrophils/100 WBC (Bld) 83.9 % Normal [facility] Comment on above: Performed By: #### C BCA, CMP, 2532-0, 3084-1, FEPR, 2276-4, 45532-7 #### [facility] ([id number]) [address], [address] [place] [address] Platelet mean volume (Bld) [Entitic vol] 9.4 fL Normal 7-12 [facility] Comment on above: Performed By: #### C BCA, CMP, 2532-0, 3084-1, FEPR, 2276-4, 83606-6 #### [facility] ([id number]) [address] [address] [place] [address] Platelets (Bld) [#/Vol] 170 10*3/uL Normal 150-450 [facility] Comment on above: Performed By: #### C BCA, CMP, 2532-0, 3084-1, FEPR, 6-4, 21290-0 #### [facility] ([id number]) [address], [facility] [place] [address] [place] [address] RBC COUNT 3.29 X10E12/L Low 3.80-5.20 [facility] Comment on above: Performed By: #### C BCA, CMP, 2532-0, 3084-1, FEPR, 2276-4, 06423-1 #### [facility] ([id number]) [address], [address] [place] [address] WBC (Bld) [#/Vol] 9.8 10*3/uL Normal 4.0-11.0 [facility] Comment on above: Performed By: #### C BCA, CMP, 2532-0, 3084-1, FEPR, 2276-4, 26213-5 #### [facility] ([id number]) [address], [address] [place] [address] ABSOLUTE BASOPHIL 0.0 X10E9/L Normal 0.0-0.2 [facility] Comment on above: Performed By: #### C BCA, CMP, 2532-0, 3084-1, FEPR, 6-4, 55048-5 #### [facility] ([id number]) [address], [address] [place] [address] ABSOLUTE NEUTROPHIL 4.0 X10E9/L Normal 1.5-6.6 [facility] Comment on above: Performed By: #### C BCA, CMP, 2532-0, 3084-1, FEPR, 6-4, 92688-7 #### [facility] ([id number]) [address], [address] [place] [address] Basophils/100 WBC (Bld) 0.5 % Normal [facility] Comment on above: Performed By: #### C BCA, CMP, 2532-0, 3084-1, FEPR, 6-4, 31564-8 #### [facility] ([id number]) [address], [address] [place] [address] Eosinophils (Bld) [#/Vol] 0.0 10*3/uL Normal 0.0-0.4 [facility] Comment on above: Performed By: #### C BCA, CMP, 2532-0, 3084-1, FEPR, 6-4, 37082-8 #### [facility] ([id number]) [address], [address] [place] [address] Eosinophils/100 WBC (Bld) 0.2 % Normal [facility] Comment on above: Performed By: #### C BCA, CMP, 2532-0, 3084-1, FEPR, 6-4, 20780-7 #### [facility] ([id number]) [address], [address] [place] [address] Erythrocyte distribution width (RBC) [Ratio] 15.9 % High 11.5-15.0 [facility] Comment on above: Performed By: #### C BCA, CMP, 2532-0, 3084-1, FEPR, 6-4, 55685-2 #### [facility] ([id number]) [address], [address] [place] [address] Hematocrit (Bld) [Volume fraction] 25.6 % Low 35-47 [facility] Comment on above: Performed By: #### C BCA, CMP, 2532-0, 3084-1, FEPR, 6-4, 95800-3 #### [facility] ([id number]) [address], [facility] [place] [address] [place] [address] Hemoglobin (Bld) [Mass/Vol] 8.7 g/dL Low 11.7-15.5 [facility] Comment on above: Performed By: #### C BCA, CMP, 2532-0, 3084-1, FEPR, 6-4, 12488-6 #### [facility] ([id number]) [address], [facility] [place] [address] [place] [address] Lymphocytes (Bld) [#/Vol] 1.8 10*3/uL Normal 1.0-3.5 [facility] Comment on above: Performed By: #### C BCA, CMP, 2532-0, 3084-1, FEPR, 6-4, 40794-8 #### [facility] ([id number]) [address], [facility] [place] [address] [place] [address] Lymphocytes/100 WBC (Bld) 28.5 % Normal [facility] Comment on above: Performed By: #### C BCA, CMP, 2532-0, 3084-1, FEPR, 6-4, 07386-2 #### [facility] ([id number]) [address], [facility] [place] [address] [place] [address] MCH (RBC) [Entitic mass] 25.4 pg Low 27-34 [facility] Comment on above: Performed By: #### C BCA, CMP, 2532-0, 3084-1, FEPR, 2276-4, 40642-8 #### [facility] ([id number]) [address], [address] [place] [address] MCHC (RBC) [Mass/Vol] 33.9 g/dL Normal 32-36 [facility] Comment on above: Performed By: #### C BCA, CMP, 2532-0, 3084-1, FEPR, 2276-4, 70858-4 #### [facility] ([id number]) [address], [facility] [place] [address] [place] [address] MCV (RBC) [Entitic vol] 75 fL Low 80-100 [facility] Comment on above: Performed By: #### C BCA, CMP, 2532-0, 3084-1, FEPR, 6-4, 88006-2 #### [facility] ([id number]) [address], [address] [address] Monocytes (Bld) [#/Vol] 0.4 10*3/uL Normal 0-0.9 [facility] Comment on above: Performed By: #### C BCA, CMP, 2532-0, 3084-1, FEPR, 6-4, 81055-9 #### [facility] ([id number]) [address], [facility] [place] [address] [place] [address] Monocytes/100 WBC (Bld) 6.1 % Normal [facility] Comment on above: Performed By: #### C BCA, CMP, 2532-0, 3084-1, FEPR, 2276-4, 23730-1 #### [facility] ([id number]) [address], [address] [address] Neutrophils/100 WBC (Bld) 64.7 % Normal [facility] Comment on above: Performed By: #### C BCA, CMP, 2532-0, 3084-1, FEPR, 2276-4, 59791-4 #### [facility] ([id number]) [address], [facility] [place] [address] [place] [address] Platelet mean volume (Bld) [Entitic vol] 9.4 fL Normal 7-12 [facility] Comment on above: Performed By: #### C BCA, CMP, 2532-0, 3084-1, FEPR, 2276-4, 18239-2 #### [facility] ([id number]) [address], [address] [address] Platelets (Bld) [#/Vol] 155 10*3/uL Normal 150-450 [facility] Comment on above: Performed By: #### C BCA, CMP, 2532-0, 3084-1, FEPR, 2276-4, 73165-8 #### [facility] ([id number]) [address], [address] [address] RBC COUNT 3.42 X10E12/L Low 3.80-5.20 [facility] Comment on above: Performed By: #### C BCA, CMP, 2532-0, 3084-1, FEPR, 2276-4, 16124-9 #### [facility] ([id number]) [address] [address] WBC (Bld) [#/Vol] 6.2 10*3/uL Normal 4.0-11.0 [facility] Comment on above: Performed By: #### C BCA, CMP, 2532-0, 3084-1, FEPR, 2276-4, 71537-3 #### [facility] ([id number]) [address], [facility] [place] [address] [place] [address] COMPREHENSIVE METABOLIC PANE Vinay 01-12-2024 Albumin [Mass/Vol] 2.8 g/dL Low 3.2-5.3 [facility] Comment on above: Performed By: #### C BCA, CMP, 2532-0, 3084-1, FEPR, 2276-4, 22602-4 #### [facility] ([id number]) [address], [address] [place] [address] ALP [Catalytic activity/Vol] 152 U/L High 39-130 [facility] Comment on above: Performed By: #### C BCA, CMP, 2532-0, 3084-1, FEPR, 2276-4, 76237-1 #### [facility] ([id number]) [address], [address] [place] [address] ALT [Catalytic activity/Vol] 10 U/L Normal 0-31 [facility] Comment on above: Performed By: #### C BCA, CMP, 2532-0, 3084-1, FEPR, 2276-4, 66111-3 #### [facility] ([id number]) [address], [address] [place] [address] Anion gap [Moles/Vol] 7 mmol/L Normal 5-15 [facility] Comment on above: Performed By: #### C BCA, CMP, 2532-0, 3084-1, FEPR, 2276-4, 22946-6 #### [facility] ([id number]) [address], [address] [place] [address] AST [Catalytic activity/Vol] 18 U/L Normal 0-41 [facility] Comment on above: Performed By: #### C BCA, CMP, 2532-0, 3084-1, FEPR, 2276-4, 98101-6 #### [facility] ([id number]) [address], [address] [place] [address] Bilirubin [Mass/Vol] 0.3 mg/dL Normal 0.3-1.2 [facility] Comment on above: Performed By: #### C BCA, CMP, 2532-0, 3084-1, FEPR, 2276-4, 83698-4 #### [facility] ([id number]) [address], [address] [place] [address] Calcium [Mass/Vol] 6.6 mg/dL Critically low 8.5-10.[address] [facility] Comment on above: Performed By: #### C BCA, CMP, 2532-0, 3084-1, FEPR, 2276-4, 35005-1 #### [facility] ([id number]) [address], [address] [place] [address] Chloride [Moles/Vol] 104 mmol/L Normal 98-109 [facility] Comment on above: Performed By: #### C BCA, CMP, 2532-0, 3084-1, FEPR, 2276-4, 86604-8 #### [facility] ([id number]) [address], [address] [place] [address] CO2 [Moles/Vol] 23 mmol/L Normal 22-32 [facility] Comment on above: Performed By: #### C BCA, CMP, 2532-0, 3084-1, FEPR, 2276-4, 88494-7 #### [facility] ([id number]) [address], [address] [place] [address] Creatinine [Mass/Vol] 0.59 mg/dL Normal 0.40-1.00 [facility] Comment on above: Result Comment: METH OD TRACEABLE TO IDMS STANDARD Performed By: #### C BCA, CMP, 2532-0, 3084-1, FEPR, 2276-4, 32788-3 #### [facility] ([id number]) [address], [address] [place] [address] eGFR (CKD-EPI) NON-RACE DEPENDENT >90 Normal >59 [facility] Comment on above: Result Comment: Reported eGFR is based on the CKD-EPI 2020 equation that does not use a race coefficient. Performed By: #### C BCA, CMP, 2532-0, 3084-1, FEPR, 2276-4, 21984-5 #### [facility] ([id number]) [address], [address] [place] [address] Glucose [Mass/Vol] 100 mg/dL High 65-99 [facility] Comment on above: Performed By: #### C BCA, CMP, 2532-0, 3084-1, FEPR, 2276-4, 34817-4 #### [facility] ([id number]) [address], [address] [place] [address] Potassium [Moles/Vol] 4.3 mmol/L Normal 3.5-5.0 [facility] Comment on above: Performed By: #### C BCA, CMP, 2532-0, 3084-1, FEPR, 2276-4, 22760-9 #### [facility] ([id number]) [address], [address] [place] [address] Protein [Mass/Vol] 5.4 g/dL Low 6.0-8.0 [facility] Comment on above: Performed By: #### C BCA, CMP, 2532-0, 3084-1, FEPR, 2276-4, 80253-5 #### [facility] ([id number]) [address], [address] [place] [address] Sodium [Moles/Vol] 134 mmol/L Normal 134-146 [facility] Comment on above: Performed By: #### C BCA, CMP, 2532-0, 3084-1, FEPR, 2276-4, 57634-5 #### [facility] ([id number]) [address], [address] [place] [address] Urea nitrogen [Mass/Vol] 9 mg/dL Normal 5-23 [facility] Comment on above: Performed By: #### C BCA, CMP, 2532-0, 3084-1, FEPR, 2276-4, 84590-0 #### [facility] ([id number]) [address], [address] [place] [address] Albumin [Mass/Vol] 2.8 g/dL Low 3.2-5.3 [facility] Comment on above: Performed By: #### C BCA, CMP, 2532-0, 3084-1, FEPR, 2276-4, 25078-1 #### [facility] ([id number]) [address], [address] [place] [address] ALP [Catalytic activity/Vol] 149 U/L High 39-130 [facility] Comment on above: Performed By: #### C BCA, CMP, 2532-0, 3084-1, FEPR, 2276-4, 53652-2 #### [facility] ([id number]) [address], [address] [place] [address] ALT [Catalytic activity/Vol] 10 U/L Normal 0-31 [facility] Comment on above: Performed By: #### C BCA, CMP, 2532-0, 3084-1, FEPR, 2276-4, 87771-0 #### [facility] ([id number]) [address], [address] [place] [address] Anion gap [Moles/Vol] 8 mmol/L Normal 5-15 [facility] Comment on above: Performed By: #### C BCA, CMP, 2532-0, 3084-1, FEPR, 2276-4, 74420-8 #### [facility] ([id number]) [address], [address] [place] [address] AST [Catalytic activity/Vol] 15 U/L Normal 0-41 [facility] Comment on above: Performed By: #### C BCA, CMP, 2532-0, 3084-1, FEPR, 2276-4, 74838-3 #### [facility] ([id number]) [address], [address] [place] [address] Bilirubin [Mass/Vol] 0.2 mg/dL Low 0.3-1.2 [facility] Comment on above: Performed By: #### C BCA, CMP, 2532-0, 3084-1, FEPR, 2276-4, 42010-5 #### [facility] ([id number]) [address], [address] [place] [address] Calcium [Mass/Vol] 7.1 mg/dL Low 8.5-10.5 [facility] Comment on above: Performed By: #### C BCA, CMP, 2532-0, 3084-1, FEPR, 2276-4, 72072-1 #### [facility] ([id number]) [address], [address] [place] [address] Chloride [Moles/Vol] 107 mmol/L Normal 98-109 [facility] Comment on above: Performed By: #### C BCA, CMP, 2532-0, 3084-1, FEPR, 2276-4, 54565-4 #### [facility] ([id number]) [address] [address] CO2 [Moles/Vol] 23 mmol/L Normal 22-32 [facility] Comment on above: Performed By: #### C BCA, CMP, 2532-0, 3084-1, FEPR, 2276-4, 80703-0 #### [facility] ([id number]) [address], [address] [place] [address] Creatinine [Mass/Vol] 0.60 mg/dL Normal 0.40-1.00 [facility] Comment on above: Result Comment: METH OD TRACEABLE TO IDMS STANDARD Performed By: #### C BCA, CMP, 2532-0, 3084-1, FEPR, 2276-4, 47509-1 #### [facility] ([id number]) [address], [address] [place] [address] eGFR (CKD-EPI) NON-RACE DEPENDENT >90 Normal >59 [facility] Comment on above: Result Comment: Reported eGFR is based on the CKD-EPI 2020 equation that does not use a race coefficient. Performed By: #### C BCA, CMP, 2532-0, 3084-1, FEPR, 2276-4, 88691-4 #### [facility] ([id number]) [address], [address] [place] [address] Glucose [Mass/Vol] 80 mg/dL Normal 65-99 [facility] Comment on above: Performed By: #### C BCA, CMP, 2532-0, 3084-1, FEPR, 2276-4, 71895-0 #### [facility] ([id number]) [address], [address] [place] [address] Potassium [Moles/Vol] 4.1 mmol/L Normal 3.5-5.0 [facility] Comment on above: Performed By: #### C BCA, CMP, 2532-0, 3084-1, FEPR, 2276-4, 96282-2 #### [facility] ([id number]) [address], [address] [place] [address] Protein [Mass/Vol] 5.5 g/dL Low 6.0-8.0 [facility] Comment on above: Performed By: #### C BCA, CMP, 2532-0, 3084-1, FEPR, 2276-4, 41793-9 #### [facility] ([id number]) [address], [address] [place] [address] Sodium [Moles/Vol] 138 mmol/L Normal 134-146 [facility] Comment on above: Performed By: #### C BCA, CMP, 2532-0, 3084-1, FEPR, 2276-4, 09881-9 #### [facility] ([id number]) [address], [address] [place] [address] Urea nitrogen [Mass/Vol] 8 mg/dL Normal 5-23 [facility] Comment on above: Performed By: #### C BCA, CMP, 2532-0, 3084-1, FEPR, 2276-4, 56849-9 #### [facility] ([id number]) [address], [address] [place] [address] CORD ARTERIAL GASon 01-12-20 24 SYLVIA'S TEST Normal [facility] Comment on above: Performed By: #### C BCA, CMP, 2532-0, 3084-1, FEPR, 2276-4, 61573-0 #### [facility] ([id number]) [address], [address] [place] [address] BASE,DEFICIT 4.0 MMOL/L High 0.0-2.0 [facility] Comment on above: Performed By: #### C BCA, CMP, 2532-0, 3084-1, FEPR, 6-4, 40102-9 #### [facility] ([id number]) [address], [address] [place] [address] HCO3 (Bld) [Moles/Vol] 25.8 mmol/L Normal 22-26 [facility] Comment on above: Performed By: #### C BCA, CMP, 2532-0, 3084-1, FEPR, 6-4, 97920-9 #### [facility] ([id number]) [address] [place] [address] INSP. O2 CONC. 21 % Normal [facility] Comment on above: Performed By: #### C BCA, CMP, 2532-0, 3084-1, FEPR, 2276-4, 71992-3 #### [facility] ([id number]) [address], [address] [place] [address] Oxygen (Bld) [Partial pressure] 10 mm[Hg] Low 12-24 [facility] Comment on above: Performed By: #### C BCA, CMP, 2532-0, 3084-1, FEPR, 2276-4, 41833-4 #### [facility] ([id number]) [address], [address] [place] [address] Oxygen saturation in Blood 7.0 % Low 7.1-39.5 [facility] Comment on above: Performed By: #### C BCA, CMP, 2532-0, 3084-1, FEPR, 2276-4, 26642-3 #### [facility] ([id number]) [address], [address] [place] [address] OXYGEN SOURCE [employer] [facility] Comment on above: Performed By: #### C BCA, CMP, 2532-0, 3084-1, FEPR, 2276-4, 63845-6 #### [facility] ([id number]) [address], [address] [place] [address] PCO2 67.1 MMHG High 40.8-57.6 [facility] Comment on above: Performed By: #### C BCA, CMP, 2532-0, 3084-1, FEPR, 2276-4, 17635-8 #### [facility] ([id number]) [address], [address] [place] [address] pH (Bld) 7.192 [pH] Low 7.24-7.30 [facility] Comment on above: Performed By: #### C BCA, CMP, 2532-0, 3084-1, FEPR, 2276-4, 50878-9 #### [facility] ([id number]) [address], [address] [place] [address] SAMPLE SITE [employer] Normal [facility] Comment on above: Performed By: #### C BCA, CMP, 2532-0, 3084-1, FEPR, 2276-4, 29265-4 #### [facility] ([id number]) [address], [address] [place] [address] SAMPLE TYPE UMBILICALCORD Normal [facility] Comment on above: Performed By: #### C BCA, CMP, 2532-0, 3084-1, FEPR, 2276-4, 95338-2 #### [facility] ([id number]) [address], [address] [place] [address] CORD VENOUS GASon 01-12-2024 SYLVIA'S TEST Normal [facility] Comment on above: Performed By: #### C BCA, CMP, 2532-0, 3084-1, FEPR, 6-4, 24934-9 #### [facility] ([id number]) [address], [address] [place] [address] BASE,DEFICIT 4.0 MMOL/L High 0.0-2.0 [facility] Comment on above: Performed By: #### C BCA, CMP, 2532-0, 3084-1, FEPR, 6-4, 56810-0 #### [facility] ([id number]) [address], [address] [place] [address] HCO3 (Bld) [Moles/Vol] 21.9 mmol/L Normal 20.0-24.0 [facility] Comment on above: Performed By: #### C BCA, CMP, 2532-0, 3084-1, FEPR, 6-4, 21163-9 #### [facility] ([id number]) [address], [address] [place] [address] INSP. O2 CONC. 21 % Normal [facility] Comment on above: Performed By: #### C BCA, CMP, 2532-0, 3084-1, FEPR, 2276-4, 95145-2 #### [facility] ([id number]) [address], [address] [place] [address] Oxygen (Bld) [Partial pressure] 34 mm[Hg] Normal 22-35 [facility] Comment on above: Performed By: #### C BCA, CMP, 2532-0, 3084-1, FEPR, 2276-4, 95216-9 #### [facility] ([id number]) [address], [address] [place] [address] Oxygen saturation in Blood 61.0 % Normal 32.5-66.3 [facility] Comment on above: Performed By: #### C BCA, CMP, 2532-0, 3084-1, FEPR, 2276-4, 80066-7 #### [facility] ([id number]) [address], [address] [place] [address] OXYGEN SOURCE Room[employer] Normal [facility] Comment on above: Performed By: #### C BCA, CMP, 2532-0, 3084-1, FEPR, 2276-4, 72577-8 #### [facility] ([id number]) [address], [address] [place] [address] PCO2 42.7 MMHG Normal 32.6-43.8 [facility] Comment on above: Performed By: #### C BCA, CMP, 2532-0, 3084-1, FEPR, 2276-4, 01686-3 #### [facility] ([id number]) [address], [address] [place] [address] pH (Bld) 7.318 [pH] Normal 7.25-7.37 [facility] Comment on above: Performed By: #### C BCA, CMP, 2532-0, 3084-1, FEPR, 2276-4, 04922-9 #### [facility] ([id number]) [address], [address] [place] [address] SAMPLE SITE VenCord Normal [facility] Comment on above: Performed By: #### C BCA, CMP, 2532-0, 3084-1, FEPR, 2276-4, 55402-3 #### [facility] ([id number]) [address], [address] [place] [address] SAMPLE TYPE UMBILICALCORD Normal [facility] Comment on above: Performed By: #### C BCA, CMP, 2532-0, 3084-1, FEPR, 2276-4, 30116-9 #### [facility] ([id number]) [address], [address] [place] [address] STREP B PCR VAG/RECTon 01-11 S. agalactiae Org specific cx Ql (Vag+Rectum) Negative Normal NEG [facility] Comment on above: Performed By: #### 7 2607-5 #### [facility] ([id number]) [address] [place] [address] XR ABDOMEN AP 1 VWon 024 XR ABDOMEN AP 1 VW XR ABDOMEN AP 1 VW XR ABDOMEN AP 1 VW HISTORY: Emergent , rule out foreign body COMPARISON: None FINDINGS: AP supine view obtained. No radiopaque foreign body. Nonobstructive bowel gas pattern. Physiologic widening of the pubic symphysis. IMPRESSION: * No radiopaque intra-abdominal foreign body. Approved by Resident: Harris Reddy DO on 01/12/2024 10:21 AM Wisam Mcdonough MD have personally reviewed the image(s) and agree with and/or edited the report Finalized by Wisam Haro MD on 01/12/2024 10:35 AM Normal [facility] CBC AND AUTO DIFFon 01-11-20 24 Band form neutrophils/100 WBC (Bld) 2.0 % Normal [facility] Comment on above: Performed By: #### C BCA, CMP, 2532-0, 3084-1, FEPR, 6-4, 97329-8 #### [facility] ([id number]) [address], [address] [place] [address] Erythrocyte distribution width (RBC) [Ratio] 15.6 % High 11.5-15.0 [facility] Comment on above: Performed By: #### C BCA, CMP, 2532-0, 3084-1, FEPR, 6-4, 37129-9 #### [facility] ([id number]) [address], [address] [place] [address] Hematocrit (Bld) [Volume fraction] 27.9 % Low 35-47 [facility] Comment on above: Performed By: #### C BCA, CMP, 2532-0, 3084-1, FEPR, 6-4, 30139-2 #### [facility] ([id number]) [address] [place] [address] Hemoglobin (Bld) [Mass/Vol] 9.3 g/dL Low 11.7-15.5 [facility] Comment on above: Performed By: #### C BCA, CMP, 2532-0, 4-1, FEPR, 6-4, 81354-7 #### [facility] ([id number]) [address] [place] [address] Lymphocytes (Bld) [#/Vol] 1.9 10*3/uL Normal 1.0-3.5 [facility] Comment on above: Performed By: #### C BCA, CMP, 2532-0, 3084-1, FEPR, 6-4, 33532-2 #### [facility] ([id number]) [address], [address] [place] [address] Lymphocytes/100 WBC (Bld) 24.0 % Normal [facility] Comment on above: Performed By: #### C BCA, CMP, 2532-0, 3084-1, FEPR, 6-4, 05769-9 #### [facility] ([id number]) [address], [address] [place] [address] MCH (RBC) [Entitic mass] 24.8 pg Low 27-34 [facility] Comment on above: Performed By: #### C BCA, CMP, 2532-0, 3084-1, FEPR, 2276-4, 68608-9 #### [facility] ([id number]) [address], [address] [place] [address] MCHC (RBC) [Mass/Vol] 33.4 g/dL Normal 32-36 [facility] Comment on above: Performed By: #### C BCA, CMP, 2532-0, 3084-1, FEPR, 6-4, 68540-3 #### [facility] ([id number]) [address], [address] [place] [address] MCV (RBC) [Entitic vol] 74 fL Low 80-100 [facility] Comment on above: Performed By: #### C BCA, CMP, 2532-0, 4-1, FEPR, 6-4, 11057-0 #### [facility] ([id number]) [address], [address] [place] [address] Metamyelocytes/100 WBC (Bld) 1.0 % Normal [facility] Comment on above: Performed By: #### C BCA, CMP, 2532-0, 3084-1, FEPR, 6-4, 13510-7 #### [facility] ([id number]) [address], [address] [place] [address] Monocytes (Bld) [#/Vol] 0.4 10*3/uL Normal 0-0.9 [facility] Comment on above: Performed By: #### C BCA, CMP, 2532-0, 3084-1, FEPR, 2276-4, 23718-2 #### [facility] ([id number]) [address], [address] [place] [address] Monocytes/100 WBC (Bld) 5.0 % Normal [facility] Comment on above: Performed By: #### C BCA, CMP, 2532-0, 3084-1, FEPR, 2276-4, 42148-9 #### [facility] ([id number]) [address] [address] [place] [address] Neutrophils (Bld) [#/Vol] 5.4 10*3/uL Normal 1.5-6.6 [facility] Comment on above: Performed By: #### C BCA, CMP, 2532-0, 3084-1, FEPR, 2276-4, 16783-4 #### [facility] ([id number]) [address], [address] [address] NUCLEATED RBC 2.0 /100 WBC High 0.0-1.0 [facility] Comment on above: Performed By: #### C BCA, CMP, 2532-0, 3084-1, FEPR, 2276-4, 70364-3 #### [facility] ([id number]) [address], [address] [address] Platelet mean volume (Bld) [Entitic vol] 9.6 fL Normal 7-12 [facility] Comment on above: Performed By: #### C BCA, CMP, 2532-0, 3084-1, FEPR, 2276-4, 62645-5 #### [facility] ([id number]) [address], [facility] [place] [address] [place] [address] Platelets (Bld) [#/Vol] 186 10*3/uL Normal 150-450 [facility] Comment on above: Performed By: #### C BCA, CMP, 2532-0, 3084-1, FEPR, 2276-4, 29146-8 #### [facility] ([id number]) [address] [address] [place] [address] POLYCHROMASIA 1+ Abnormal NONE [facility] Comment on above: Performed By: #### C BCA, CMP, 2532-0, 3084-1, FEPR, 2276-4, 58487-7 #### [facility] ([id number]) [address], [address] [place] [address] RBC COUNT 3.75 X10E12/L Low 3.80-5.20 [facility] Comment on above: Performed By: #### C BCA, CMP, 2532-0, 3084-1, FEPR, 2276-4, 95407-9 #### [facility] ([id number]) [address], [address] [place] [address] SEG NEUTROPHIL 68.0 % Normal [facility] Comment on above: Performed By: #### C BCA, CMP, 2532-0, 3084-1, FEPR, 6-4, 38214-8 #### [facility] ([id number]) [address], [address] [place] [address] WBC (Bld) [#/Vol] 7.8 10*3/uL Normal 4.0-11.0 [facility] Comment on above: Performed By: #### C BCA, CMP, 2532-0, 3084-1, FEPR, 6-4, 23786-9 #### [facility] ([id number]) [address], [address] [place] [address] COMPREHENSIVE METABOLIC PANE Vinay 01-11-2024 Albumin [Mass/Vol] 3.2 g/dL Normal 3.2-5.3 [facility] Comment on above: Performed By: #### C BCA, CMP, 2532-0, 3084-1, FEPR, 2276-4, 52952-2 #### [facility] ([id number]) [address], [address] [place] [address] ALP [Catalytic activity/Vol] 169 U/L High 39-130 [facility] Comment on above: Performed By: #### C BCA, CMP, 2532-0, 3084-1, FEPR, 2276-4, 32159-9 #### [facility] ([id number]) [address], [address] [place] [address] ALT [Catalytic activity/Vol] 8 U/L Normal 0-31 [facility] Comment on above: Performed By: #### C BCA, CMP, 2532-0, 3084-1, FEPR, 2276-4, 20164-2 #### [facility] ([id number]) [address], [address] [place] [address] Anion gap [Moles/Vol] 12 mmol/L Normal 5-15 [facility] Comment on above: Performed By: #### C BCA, CMP, 2532-0, 3084-1, FEPR, 2276-4, 74560-0 #### [facility] ([id number]) [address], [address] [place] [address] AST [Catalytic activity/Vol] 14 U/L Normal 0-41 [facility] Comment on above: Performed By: #### C BCA, CMP, 2532-0, 3084-1, FEPR, 2276-4, 11811-0 #### [facility] ([id number]) [address], [address] [place] [address] Bilirubin [Mass/Vol] 0.2 mg/dL Low 0.3-1.2 [facility] Comment on above: Performed By: #### C BCA, CMP, 2532-0, 3084-1, FEPR, 2276-4, 04159-1 #### [facility] ([id number]) [address], [address] [place] [address] Calcium [Mass/Vol] 8.4 mg/dL Low 8.5-10.5 [facility] Comment on above: Performed By: #### C BCA, CMP, 2532-0, 3084-1, FEPR, 2276-4, 08918-2 #### [facility] ([id number]) [address], [address] [place] [address] Chloride [Moles/Vol] 111 mmol/L High 98-109 [facility] Comment on above: Performed By: #### C BCA, CMP, 2532-0, 3084-1, FEPR, 2276-4, 97058-3 #### [facility] ([id number]) [address], [address] [place] [address] CO2 [Moles/Vol] 19 mmol/L Low 22-32 [facility] Comment on above: Performed By: #### C BCA, CMP, 2532-0, 3084-1, FEPR, 2276-4, 53550-5 #### [facility] ([id number]) [address], [address] [place] [address] Creatinine [Mass/Vol] 0.57 mg/dL Normal 0.40-1.00 [facility] Comment on above: Result Comment: METH OD TRACEABLE TO IDMS STANDARD Performed By: #### C BCA, CMP, 2532-0, 3084-1, FEPR, 2276-4, 93155-6 #### [facility] ([id number]) [address], [address] [place] [address] eGFR (CKD-EPI) NON-RACE DEPENDENT >90 Normal >59 [facility] Comment on above: Result Comment: Reported eGFR is based on the CKD-EPI 2020 equation that does not use a race coefficient. Performed By: #### C BCA, CMP, 2532-0, 3084-1, FEPR, 2276-4, 01674-1 #### [facility] ([id number]) [address], [facility] [place] [address] [place] [address] Glucose [Mass/Vol] 80 mg/dL Normal 65-99 [facility] Comment on above: Performed By: #### C BCA, CMP, 2532-0, 3084-1, FEPR, 2276-4, 63250-8 #### [facility] ([id number]) [address], [address] [place] [address] Potassium [Moles/Vol] 3.9 mmol/L Normal 3.5-5.0 [facility] Comment on above: Performed By: #### C BCA, CMP, 2532-0, 3084-1, FEPR, 2276-4, 14784-9 #### [facility] ([id number]) [address], [address] [place] [address] Protein [Mass/Vol] 6.3 g/dL Normal 6.0-8.0 [facility] Comment on above: Performed By: #### C BCA, CMP, 2532-0, 3084-1, FEPR, 2276-4, 05865-9 #### [facility] ([id number]) [address], [address] [place] [address] Sodium [Moles/Vol] 142 mmol/L Normal 134-146 [facility] Comment on above: Performed By: #### C BCA, CMP, 2532-0, 3084-1, FEPR, 2276-4, 34404-3 #### [facility] ([id number]) [address], [address] [place] [address] Urea nitrogen [Mass/Vol] 9 mg/dL Normal 5-23 [facility] Comment on above: Performed By: #### C BCA, CMP, 2532-0, 3084-1, FEPR, 2276-4, 81988-2 #### [facility] ([id number]) [address], [address] [place] [address] DRUG SCREEN, URINEon 024 AMPHETAMINE/METHAMP Negative Normal NEG [facility] Comment on above: Result Comment: AMPH /METH screening cut off = 1000 ng/mL Performed By: #### D LITTLE #### [facility] ([id number]) [address], [address] [place] [address] BARBITURATES Negative Normal NEG [facility] Comment on above: Result Comment: Sol iturates screening cut off value = 200 ng/mL Performed By: #### D LITTLE #### [facility] ([id number]) [address], [address] [place] [address] BENZODIAZEPINES Negative Normal NEG [facility] Comment on above: Result Comment: Laci odiazepines screening cut off value = 200 ng/mL Performed By: #### D LITTLE #### [facility] ([id number]) [address] [place] [address] CANNABINOIDS Negative Normal NEG [facility] Comment on above: Result Comment: Neno abinoids/THC screening cut off value = 50 ng/mL Performed By: #### D LITTLE #### [facility] ([id number]) [address], [address] [place] [address] COCAINE METABOLITE Negative Normal NEG [facility] Comment on above: Result Comment: Coca ine screening cut off value = 300 ng/mL Performed By: #### D LITTLE #### [facility] ([id number]) [address], [address] [place] [address] ECSTASY Negative Normal [facility] Comment on above: Result Comment: Ecst asy screening cut off value = 500 ng/mL This report is intended for use in clinical monitoring or management of patients. Performed By: #### D LITTLE #### [facility] ([id number]) [address], [address] [place] [address] METHADONE Negative Normal NEG [facility] Comment on above: Result Comment: Meth adone screening cut off value = 300 ng/mL. Performed By: #### D LITTLE #### [facility] ([id number]) [address], [address] [place] [address] OPIATES Negative Normal NEG [facility] Comment on above: Result Comment: Opia ermias screening cut off value = 300 ng/mL NOTE: This test is used for the detection of codeine, hydrocodone (>1000 ng/mL), morphine and hydromorphone (>900 ng/mL) in urine. Performed By: #### D LITTLE #### [facility] ([id number]) [address] [address] OXYCODONE Negative Normal NEG [facility] Comment on above: Result Comment: Oxyc odone screening cut off value = 300 ng/mL NOTE: This test is used for the detection of oxycodone and oxymorphone in urine. Performed By: #### D LITTLE #### [facility] ([id number]) [address] [address] PHENCYCLIDINE Negative Normal NEG [facility] Comment on above: Result Comment: Phen cyclidine screening cut off value = 25 ng/mL Performed By: #### D LITTLE #### [facility] ([id number]) [address], [address] [address] FERRITINon 01-11-2024 Ferritin [Mass/Vol] 8 ng/mL Low 11-307 [facility] Comment on above: Performed By: #### C BCA, CMP, 2532-0, 3084-1, FEPR, 2276-4, 15825-0 #### [facility] ([id number]) [address], [address] [address] IRON PROFILEon 01-11-2024 Iron [Mass/Vol] 24 ug/dL Low 50-170 [facility] Comment on above: Performed By: #### C BCA, CMP, 2532-0, 3084-1, FEPR, 2276-4, 03953-7 #### [facility] ([id number]) [address], [address] [place] [address] IRON BINDING 598 ug/dL High 250-425 [facility] Comment on above: Performed By: #### C BCA, CMP, 2532-0, 3084-1, FEPR, 2276-4, 96393-6 #### [facility] ([id number]) [address] [address] IRON SATURATION 4 % SATURATION Low 15-50 [facility] Comment on above: Performed By: #### C BCA, CMP, 2532-0, 3084-1, FEPR, 2276-4, 83672-9 #### [facility] ([id number]) [address] [address] LDH [Catalytic activity/Vol] on 01-11-2024 LDH 151 U/L Normal 100-235 [facility] Comment on above: Performed By: #### C BCA, CMP, 2532-0, 3084-1, FEPR, 2276-4, 48589-4 #### [facility] ([id number]) [address] [address] PROTEIN CREAT RATIOon 2023 RANDOM URINE PROTEIN 350 mg/L High <120 [facility] Comment on above: Performed By: #### U PCR #### [facility] ([id number]) [address] [address] U/PRO/ART INSTALLER RATIO CALC 2.00 High <0.2 [facility] Comment on above: Result Comment: Neph rotic Syndrome is associated with ratios >3.5 Performed By: #### U PCR #### [facility] ([id number]) [address] [address] URINE CREATININE,RDM 17.47 mg/dL Normal [facility] Comment on above: Performed By: #### U PCR #### [facility] ([id number]) [address] [address] T. pallidum IgG+IgM IA Ql (S )on 01-11-2024 Syphilis Total <0.2 Normal 0.0-0.8 [facility] Comment on above: Result Comment: NON REACTIVE No serologic evidence of infection to Treponema pallidum (syphilis). Repeat testing may be considered in patients with suspected acute or primary syphilis in 2 to 4 weeks. Performed By: #### C BCA, CMP, 2532-0, 3084-1, FEPR, 2276-4, 17561-8 #### [facility] ([id number]) [address] [facility] [place] [address] URIC ACIDon 01-11-2024 Urate [Mass/Vol] 7.6 mg/dL High 2.6-7.2 [facility] Comment on above: Performed By: #### C BCA, CMP, 2532-0, 3084-1, FEPR, 2276-4, 40643-9 #### [facility] ([id number]) [address] [facility], [address] [place] [address] Coxsackie B Abon 10-26-2023 Coxsackie tp. B1 <1:10 Normal <1:10 [facility] Comment on above: Performed By: #### C MVG, LUPPRO, AT3A, PROCAC, PROSAC, CMVM, CMIS, TOXOG, TOXOM, HOCYS #### [facility] [address] [place] [address] [phone] Underwear Trimmer: Tanvir Macias MD #### APTMUT, AF5MUT, AMTHFR, ACOXA9, APARVP, ACOXAB #### [address] [address] Underwear Trimmer: Enrique Arthur MD Coxsasoco tp. B2 1:20 Normal <1:10 [facility] Comment on above: Performed By: #### C MVG, LUPPRO, AT3A, PROCAC, PROSAC, CMVM, CMIS, TOXOG, TOXOM, HOCYS #### [facility] [address] [place] [address] [phone] Underwear Trimmer: Tanvir Macias MD #### APTMUT, AF5MUT, AMTHFR, ACOXA9, APARVP, ACOXAB #### [facility] [address] [place], [place] [id number] Underwear Trimmer: MD Tatum Santoyo B3 1:10 Normal <1:10 [facility] Comment on above: Performed By: #### C MVG, LUPPRO, AT3A, PROCAC, PROSAC, CMVM, CMIS, TOXOG, TOXOM, HOCYS #### [facility] [address] [place] [address] Underwear Trimmer: Tanvir Macias MD #### APTMUT, AF5MUT, AMTHFR, ACOXA9, APARVP, ACOXAB #### [facility] [address] [place], [place] [id number] Underwear Trimmer: MD Tatum Santoyo. B4 1:320 Abnormal <1:10 [facility] Comment on above: Performed By: #### C MVG, LUPPRO, AT3A, PROCAC, PROSAC, CMVM, CMIS, TOXOG, TOXOM, HOCYS #### [facility] [address] [place] [address] Underwear Trimmer: Tanvir Macias MD #### APTMUT, AF5MUT, AMTHFR, ACOXA9, APARVP, ACOXAB #### [facility] [address] [place], [place] [id number] Underwear Trimmer: MD Tatum Santoyo B5 <1:10 Normal <1:10 [facility] Comment on above: Performed By: #### C MVG, LUPPRO, AT3A, PROCAC, PROSAC, CMVM, CMIS, TOXOG, TOXOM, HOCYS #### [facility] [address] [place] [address] Underwear Trimmer: Tanvir Macias MD #### APTMUT, AF5MUT, AMTHFR, ACOXA9, APARVP, ACOXAB #### [facility] [address] [place] [address] Underwear Trimmer: Enrique Arthur MD Coxckosmani tp. B6 <1:10 Normal <1:10 [facility] Comment on above: Result Comment: (NOT E) INTERPRETIVE INFORMATION: Coxsackie B Virus Single positive antibody titers of greater than or equal to 1:80 may indicate past or current infection. Sero- conversion or an increase in titers between acute and convalescent sera of at least fourfold is considered strong evidence of current or recent infection. Performed By: [facility] [address] [place] [address] Bilingual Sales Representative: Nadeem Mcarthur MD, PhD CLIA Number: [id number] Performed By: #### C MVG, LUPPRO, AT3A, PROCAC, PROSAC, CMVM, CMIS, TOXOG, TOXOM, HOCYS #### [address] [id number] Underwear Trimmer: Tanvir Macias MD #### APTMUT, AF5MUT, AMTHFR, ACOXA9, APARVP, ACOXAB #### [address] [phone] Underwear Trimmer: Enrique Arthur MD Factor V Mutationon 10-22-19 24 F 5 SPECIMEN Whole Blood Normal [facility] Comment on above: Performed By: #### C MVG, LUPPRO, AT3A, PROCAC, PROSAC, CMVM, CMIS, TOXOG, TOXOM, HOCYS #### [address] [phone] Underwear Trimmer: Tanvir Macias MD #### APTMUT, AF5MUT, AMTHFR, ACOXA9, APARVP, ACOXAB #### [facility] [address] [place] [address] Underwear Trimmer: Enrique Arthur MD FACTOR 5 MUTATION Negative Normal [facility] Comment on above: Result Comment: (NOT E) Indication for testing: Assess genetic risk for thrombosis. NEGATIVE: The factor V Leiden variant, c.1601G>A; p.Dnj028Equ, was not detected. This does not exclude [...] function in the F5 gene variant c.1601G>A (p.Dmn688Pjc). Legacy nomenclature: [id number] (1691G>A) CLINICAL SENSITIVITY: 20-50 percent of individuals with an isolated VTE have the FVL variant. METHODOLOGY: Polymerase chain reaction and fluorescence monitoring. ANALYTICAL SENSITIVITY AND SPECIFICITY: 99 percent. LIMITATIONS: Diagnostic errors can occur due to rare sequence variations. F5 gene mutations, other than p.Oml931Sji, will not be detected. This test was developed and its performance characteristics determined by [employer]. It has not been cleared or approved by the [place] Food and Drug Administration. This test was performed in a CLIA certified laboratory and is intended for clinical purposes. Counseling and informed consent are recommended for genetic testing. Consent forms are available online. Performed By: [place] [address] Bilingual Sales Representative: Nadeem Mcarthur MD, PhD CLIA Number: [id number] Performed By: #### C MVG, LUPPRO, AT3A, PROCAC, PROSAC, CMVM, CMIS, TOXOG, TOXOM, HOCYS #### [address] [phone] Underwear Trimmer: Tanvir Macias MD #### APTMUT, AF5MUT, AMTHFR, ACOXA9, APARVP, ACOXAB #### [address] [address] Underwear Trimmer: Enrique Arthur MD Coxsackie A9 Titeron 024 Coxsackie A9 Titer <1:8 Normal <1:8 [facility] Comment on above: Result Comment: (NOT E) INTERPRETIVE INFORMATION: Coxsackie A Serotype 9 Titer Single positive antibody titers of greater than 1:32 may indicate past or current infection. Seroconversion or an increase in titers between acute and convalescent sera of at least fourfold is considered strong evidence of current or recent infection. Performed By: [facility] [employer] [address] [place] [address] Bilingual Sales Representative: Nadeem Mcarthur MD, PhD CLIA Number: [id number] Performed By: #### C MVG, LUPPRO, AT3A, PROCAC, PROSAC, CMVM, CMIS, TOXOG, TOXOM, HOCYS #### [address] [phone] Underwear Trimmer: Tanvir Macias MD #### APTMUT, AF5MUT, AMTHFR, ACOXA9, APARVP, ACOXAB #### [address] [address] Underwear Trimmer: Enrique Arthur MD MTHFR Gene Mutationon 2023 MTHFR 1286 A>C Mut Negative Normal [facility] Comment on above: Performed By: #### C MVG, LUPPRO, AT3A, PROCAC, PROSAC, CMVM, CMIS, TOXOG, TOXOM, HOCYS #### [facility] [address] [place] [address] Underwear Trimmer: Tanvir Macias MD #### APTMUT, AF5MUT, AMTHFR, ACOXA9, APARVP, ACOXAB #### [facility] [address] [place], [place] [phone] Underwear Trimmer: Enrique Arthur MD MTHFR 655C>T Mut Heterozygous Normal [facility] Comment on above: Performed By: #### C MVG, LUPPRO, AT3A, PROCAC, PROSAC, CMVM, CMIS, TOXOG, TOXOM, HOCYS #### [address] [phone] Underwear Trimmer: Tanvir Macias MD #### APTMUT, AF5MUT, AMTHFR, ACOXA9, APARVP, ACOXAB #### [facility] [address] [place] [address] Underwear Trimmer: Enrique Arthur MD MTHFR Interpretation See Note Normal [facility] Comment on above: Result Comment: (NOT E) Indication for testing: Determine genetic contribution to hyperhomocysteinemia. Heterozygous MTHFR c.665C>T: One copy of the MTHFR variant c.665C>T (previously designated C677T) was detected; the c.1286A>C (previously designated Z7664I) variant was not identified. The common variant [...] has an effect on cardiovascular disease. The [employer] Practice Guidelines indicate [...] a contributing factor to hyperhomocysteinemia. Variants Tested: c.665C>T(p.Klk506Stq) and c.1286A>C(p.Mxm028Unu). (legacy names C677T and E2048T, respectively). Clinical Sensitivity: Undefined; hyperhomocysteinemia is caused [...] developed and its performance characteristics determined by [employer]. It has not been cleared or approved by the [place] Food and Drug Administration. This test was performed in a CLIA certified laboratory and is intended for clinical purposes. Counseling and informed consent are recommended for genetic testing. Consent forms are available online. Performed By: [facility] [address] [place] [address] Bilingual Sales Representative: Nadeem Mcarthur MD, PhD CLIA Number: [id number] Performed By: #### C MVG, LUPPRO, AT3A, PROCAC, PROSAC, CMVM, CMIS, TOXOG, TOXOM, HOCYS #### [address] [address] Underwear Trimmer: Tanvir Macias MD #### APTMUT, AF5MUT, AMTHFR, ACOXA9, APARVP, ACOXAB #### [facility] [address] [place] [address] Underwear Trimmer: Enrique Arthur MD MTHFR SPECIMEN Whole Blood Normal [facility] Comment on above: Performed By: #### C MVG, LUPPRO, AT3A, PROCAC, PROSAC, CMVM, CMIS, TOXOG, TOXOM, HOCYS #### [facility] [address] [id number] Underwear Trimmer: Tanvir Macias MD #### APTMUT, AF5MUT, AMTHFR, ACOXA9, APARVP, ACOXAB #### [facility] [address] [place], [place] [id number] Underwear Trimmer: Enrique Arthur MD PT Mutation 93019he 10-21-19 24 PT [id number] VARIANT Negative Normal [facility] Comment on above: Result Comment: (NOT E) Indication for testing: Assess genetic risk for thrombosis. NEGATIVE: The Factor II, prothrombin C89717K mutation, was not detected. Other causes of [...] Quintana, Ph.D. BACKGROUND INFORMATION: Prothrombin (F2) c.*97G>A (D11339P) Pathogenic Variant CHARACTERISTICS: The Factor II, c.*97G>A (A81501B) pathogenic variant is a common genetic risk [...] CAUSE: Homozygosity or heterozygosity for F2 c.*97G>A (Z88496Q). PATHOGENIC VARIANT TESTED: F2 c.*97G>A (R73694M). CLINICAL SENSITIVITY FOR VENOUS THROMBOSIS: Approximately 10 percent. METHODOLOGY: Polymerase chain reaction and fluorescence monitoring. ANALYTICAL SENSITIVITY AND SPECIFICITY: 99 percent. LIMITATIONS: Diagnostic errors can occur due to rare sequence variations. F2 gene variants, other than c.*97G>A (F72252Z), will not be detected. This test was developed and its performance characteristics determined by [employer]. It has not been cleared or approved by the [place] Food and Drug Administration. This test was performed in a CLIA certified laboratory and is intended for clinical purposes. Counseling and informed consent are recommended for genetic testing. Consent forms are available online. Performed By: [employer] [address] [place], [place] [id number] Bilingual Sales Representative: Nadeem Mcarthur MD, PhD [place] Number: [id number] Performed By: #### C MVG, LUPPRO, AT3A, PROCAC, PROSAC, CMVM, CMIS, TOXOG, TOXOM, HOCYS #### [place] [address] Underwear Trimmer: Tanvir Macias MD #### APTMUT, AF5MUT, AMTHFR, ACOXA9, APARVP, ACOXAB #### [place] [phone] Underwear Trimmer: Enrique Arthur MD PT PCR SPECIMEN Whole Blood Normal [facility] Comment on above: Performed By: #### C MVG, LUPPRO, AT3A, PROCAC, PROSAC, CMVM, CMIS, TOXOG, TOXOM, HOCYS #### [place] [address] Underwear Trimmer: Tanvir Macias MD #### APTMUT, AF5MUT, AMTHFR, ACOXA9, APARVP, ACOXAB #### [facility] [employer] [address] [place] [address] Underwear Trimmer: Enrique rAthur MD Parvovirus B19 Panelon 10-21 Parvovirus IgG B19 1.80 IV High <=0.90 [facility] Comment on above: Result Comment: (NOT E) [...] PROSAC, CMVM, CMIS, TOXOG, TOXOM, HOCYS #### [facility] [employer] [address] [place] [address] Underwear Trimmer: Tanvir Macias MD #### APTMUT, AF5MUT, AMTHFR, ACOXA9, APARVP, ACOXAB #### [facility] [address] [place] [address] Underwear Trimmer: Enrique Arthur MD Parvovirus IgM B19 0.12 IV Normal <=0.90 [facility] Comment on above: Result Comment: (NOT E) INTERPRETIVE INFORMATION: Parvovirus B19 Antibody, IgM EFFECTIVE 07/04/2023 REFERENCE INTERVAL CHANGE Due to reagent kit head waiter/waitress recall, an alternate kit has been validated and implemented by [facility]. The following Reference Interval applies to this [...] levels of specific IgM antibodies. Performed By: [facility] [facility] [address] [place] [address] Bilingual Sales Representative: Nadeem Mcarthur MD, PhD CLIA Number: [id number] Performed By: #### C MVG, LUPPRO, AT3A, PROCAC, PROSAC, CMVM, CMIS, TOXOG, TOXOM, HOCYS #### [facility] [address] [place] [address] [phone] Underwear Trimmer: Tanvir Macias MD #### APTMUT, AF5MUT, AMTHFR, ACOXA9, APARVP, ACOXAB #### [employer] [address] [place] [address] Underwear Trimmer: Enrique Arthur MD Antithrombin III Becka 10-18 Antithrombin III Act 106 % Normal 83-122 [facility] Comment on above: Result Comment: Patients receiving Hirudin may have a falsely decreased Antitrombin III Activity. Performed By: #### C MVG, LUPPRO, AT3A, PROCAC, PROSAC, CMVM, CMIS, TOXOG, TOXOM, HOCYS #### [employer] [address] [place] [address] [phone] Underwear Trimmer: Tanvir Macias MD #### APTMUT, AF5MUT, AMTHFR, ACOXA9, APARVP, ACOXAB #### [employer] [address] [place] [address] Underwear Trimmer: Enrique Arthur MD Lupus Anticoagulanton 2023 Anticardiolipin IgA 2.4 APL Normal 0.0-14.0 [facility] Comment on above: Result Comment: Reference Range: <14.0 Negative 14.0-20.0 Equivocal >20.0 Positive When results are Equivocal, it is recommended to retest after 4-6 weeks. Performed By: #### C MVG, LUPPRO, AT3A, PROCAC, PROSAC, CMVM, CMIS, TOXOG, TOXOM, HOCYS #### [facility] [employer] [address] [place] [id number] Underwear Trimmer: Tanvir Macias MD #### APTMUT, AF5MUT, AMTHFR, ACOXA9, APARVP, ACOXAB #### [facility] [address] [place] [address] Underwear Trimmer: Enrique Arthur MD Anticardiolipin IgG 2.8 GPL Normal 0.0-10.0 [facility] Comment on above: Result Comment: Reference Range: <10.0 Negative 10.0-40.0 Equivocal >40.0 Positive Performed By: #### C MVG, LUPPRO, AT3A, PROCAC, PROSAC, CMVM, CMIS, TOXOG, TOXOM, HOCYS #### [facility] [employer] [facility] [address] [place] [address] [phone] Underwear Trimmer: Tanvir Macias MD #### APTMUT, AF5MUT, AMTHFR, ACOXA9, APARVP, ACOXAB #### [facility] [address] [place] [address] Underwear Trimmer: Enrique Arthur MD Anticardiolipin IgM <0.8 Normal 0.0-10.0 [facility] Comment on above: Result Comment: Reference Range: <10.0 Negative 10.0-40.0 Equivocal >40.0 Positive Performed By: #### C MVG, LUPPRO, AT3A, PROCAC, PROSAC, CMVM, CMIS, TOXOG, TOXOM, HOCYS #### [facility] [address] [place] [id number] Underwear Trimmer: Tanvir Macias MD #### APTMUT, AF5MUT, AMTHFR, ACOXA9, APARVP, ACOXAB #### [facility] [address] [place] [address] Underwear Trimmer: Enrique Arthur MD Dilute [place] [facility] Comment on [facility]: Performed By: #### C MVG, LUPPRO, AT3A, PROCAC, PROSAC, CMVM, CMIS, TOXOG, TOXOM, HOCYS #### [facility] [address] [place] [address] [phone] Underwear Trimmer: Tanvir Macias MD #### APTMUT, AF5MUT, AMTHFR, ACOXA9, APARVP, ACOXAB #### [facility] [address] [place], [place] [id number] Underwear Trimmer: Enrique Arthur MD Miscellaneouson 10-18-2023 Send Out Report [facility] [employer] [id number] Normal [facility] Comment on above: Result Comment: UNIT Y Performed By: #### C MVG, LUPPRO, AT3A, PROCAC, PROSAC, CMVM, CMIS, TOXOG, TOXOM, HOCYS #### [facility] [address] [place] [address] [phone] Underwear Trimmer: Tanvir Macias MD #### APTMUT, AF5MUT, AMTHFR, ACOXA9, APARVP, ACOXAB #### [facility] [address] [place] [address] Underwear Trimmer: Enrique Arthur MD Protein C Activityon 024 Protein C Activity 91 % Normal >80 [facility] Comment on above: Result Comment: Patients on [...] PROSAC, CMVM, CMIS, TOXOG, TOXOM, HOCYS #### [facility] [address] [place] [id number] Underwear Trimmer: Tanvir Macias MD #### APTMUT, AF5MUT, AMTHFR, ACOXA9, APARVP, ACOXAB #### [address] [address] Underwear Trimmer: Enrique Arthur MD Protein S Activityon 024 Protein S Activity 79 % Normal 59-130 [facility] Comment on above: Result Comment: Patients on [...] PROSAC, CMVM, CMIS, TOXOG, TOXOM, HOCYS #### [facility] [address] [place] [address] [phone] Underwear Trimmer: Tanvir Macias MD #### APTMUT, AF5MUT, AMTHFR, ACOXA9, APARVP, ACOXAB #### [address] [address] Underwear Trimmer: Enrique Arthur MD Toxoplasma Ab,IgGon 10-18-19 24 Toxoplasma Ab,IgG 1.2 IU/mL Normal [facility] Comment on above: Result Comment: REFERENCE [...] PROSAC, CMVM, CMIS, TOXOG, TOXOM, HOCYS #### [address] [phone] Underwear Trimmer: Tanvir Macias MD #### APTMUT, AF5MUT, AMTHFR, ACOXA9, APARVP, ACOXAB #### [address] [phone] Underwear Trimmer: Enrique Arthur MD Toxoplasma Ab,IgMon 10-18-19 Toxoplasma Ab,IgM 0.56 Index Normal [facility] Comment on above: Result Comment: REFERENCE RANGE: <0.90 NON-REACTIVE 0.90 TO 0.99 INDETERMINANT >=1.00 REACTIVE Performed By: #### C MVG, LUPPRO, AT3A, PROCAC, PROSAC, CMVM, CMIS, TOXOG, TOXOM, HOCYS #### [facility] [employer] [facility] [address] [place] [address] [phone] Underwear Trimmer: Tanvir Macias MD #### APTMUT, AF5MUT, AMTHFR, ACOXA9, APARVP, ACOXAB #### [facility] [address] [place], [place] [phone] Underwear Trimmer: Enrique Arthur MD CMV Ab,IgGon 10-17-2023 CMV Ab,IgG 523.0 High <0.5 [facility] Comment on above: Result Comment: Reference Range: [...] PROSAC, CMVM, CMIS, TOXOG, TOXOM, HOCYS #### [facility] [address] [place] [address] [phone] Underwear Trimmer: Tanvir Macias MD #### APTMUT, AF5MUT, AMTHFR, ACOXA9, APARVP, ACOXAB #### [facility] [address] [place] [id number] Underwear Trimmer: Enrique Arthur MD CMV Ab,IgMon 10-17-2023 CMV Ab,IgM 0.2 Normal <0.7 [facility] Comment on above: Result Comment: Reference Range: [...] PROSAC, CMVM, CMIS, TOXOG, TOXOM, HOCYS #### [facility] [address] [place] [address] [phone] Underwear Trimmer: Tanvir Macias MD #### APTMUT, AF5MUT, AMTHFR, ACOXA9, APARVP, ACOXAB #### [facility] [address] [place] [address] [phone] Underwear Trimmer: Enrique Arthur MD Homocysteineon 10-17-2023 Homocysteine 5.7 umol/L Normal <15.0 [facility] Comment on above: Performed By: #### C MVG, LUPPRO, AT3A, PROCAC, PROSAC, CMVM, CMIS, TOXOG, TOXOM, HOCYS #### [facility] [address] [place] [address] [phone] Underwear Trimmer: Tanvir Macias MD #### APTMUT, AF5MUT, AMTHFR, ACOXA9, APARVP, ACOXAB #### [facility] [address] [place], [place] [id number] Underwear Trimmer: Enrique Arthur MD Lupus Anticoagulanton 2023 aPTT Coag (d) [Time] 27.6 s Normal 23.0-36.5 [facility] Comment on above: Result Comment: IV Heparin Therapy Range: 66.0-92.0 sec Performed By: #### C MVG, LUPPRO, AT3A, PROCAC, PROSAC, CMVM, CMIS, TOXOG, TOXOM, HOCYS #### [address] [phone] Underwear Trimmer: Tanvir Macias MD #### APTMUT, AF5MUT, AMTHFR, ACOXA9, APARVP, ACOXAB #### [facility] [address] [place] [address] Underwear Trimmer: Enrique Arthur MD INR Coag (PPP) [Relative time] 1.0 {INR} Normal [facility] Comment on above: Result Comment: Therapeutic Range: Moderate Anticoagulant Intensity: INR = 2.0-3.0 High Anticoagulant Intensity: INR = 2.5-3.5 Performed By: #### C MVG, LUPPRO, AT3A, PROCAC, PROSAC, CMVM, CMIS, TOXOG, TOXOM, HOCYS #### [facility] [address] [place] [address] [phone] Underwear Trimmer: Tanvir Macias MD #### APTMUT, AF5MUT, AMTHFR, ACOXA9, APARVP, ACOXAB #### [facility] [address] [place] [address] Underwear Trimmer: Enrique Arthur MD PT Coag (PPP) [Time] 13.5 s Normal 11.7-14.9 [facility] Comment on above: Performed By: #### C MVG, LUPPRO, AT3A, PROCAC, PROSAC, CMVM, CMIS, TOXOG, TOXOM, HOCYS #### [facility] [address] [place] [address] Underwear Trimmer: Tanvir Macias MD #### APTMUT, AF5MUT, AMTHFR, ACOXA9, APARVP, ACOXAB #### [facility] [address] [place] [address] Underwear Trimmer: Enrique Arthur MD Basic Metabolic Panelon Glucose [Mass/Vol] 97 mg/dL [facility] CBC without diffOrdered By: Mayra Victoria on 07-26-2023 Hematocrit (Bld) [Volume fraction] 34.8 % [facility] Hemoglobin (Bld) [Mass/Vol] 11.3 g/dL [facility] Platelets (Bld) [#/Vol] 292 10*3/uL [facility] Rbc Mcv (Fl) By Automated Count 83.5 [facility] HIV 1&2 AB/AG Screen (P24 AG )on 07-26-2023 HIV 1&2 AB/AG Non-Reactive [facility] Hemoglobin A1con 07-26-2023 HbA1c (Bld) [Mass fraction] 5.0 % 4.0 - 6.0 % [facility] Hepatitis B surface antigeno n 07-26-2023 Hepatitis B Surface Antigen Negative [facility] No Panel InformationOrdered By: Mayra Victoria on 07-26-2023 [facility] Rubella IGG immune statuson 07-26-2023 Rubella immune IgG 5.26 [facility] Syphilis Total(Unknown Syphi lis Status)on 07-26-2023 Syphilis Non-Reactive [facility] TSHon 07-26-2023 TSH Qn 1.99 m[IU]/L [facility] Type and screenon 07-26-2023 Abo/Rh(D) Positive [facility] CBC AUTO DIFFon 07-28-2022 BASO # 0.0 103/ul Normal 0.0-0.1 [facility] Comment on above: Performed By: #### H CVPCRR #### [facility] [address] [address] [address] Carleen Underwood Basophils/100 WBC (Bld) 0.3 % Normal 0.2-2.0 [facility] Comment on above: Performed By: #### H CVPCRR #### [facility] [address] [place] [address] Dr. Carleen Underwood EO # 0.2 103/ul Normal 0.0-0.7 [facility] Comment on above: Performed By: #### H CVPCRR #### [facility] [address] [address] [address] Carleen Underwood Eosinophils/100 WBC (Bld) 1.5 % Normal 0.9-7.0 [facility] Comment on above: Performed By: #### H CVPCRR #### [facility] [address] [place] [address] Dr. Carleen Underwood Erythrocyte distribution width (RBC) [Ratio] 14.9 % Normal 11.0-15.0 [facility] Comment on above: Performed By: #### H CVPCRR #### [facility] [address] [place] [address] Dr. Carleen Underwood Hematocrit (Bld) [Volume fraction] 30.7 % Critically low 36.0-48.0 [facility] Comment on above: Performed By: #### H CVPCRR #### [facility] [address] [place] [address] Dr. Carleen Underwood Hemoglobin (Bld) [Mass/Vol] 9.4 g/dL Critically low 12.0-16.0 [facility] Comment on above: Performed By: #### H CVPCRR #### [facility] [address] [address] [address] Carleen Underwood IG # 0.07 10e3/ul Critically high 0.00-0.03 [facility] Comment on above: Performed By: #### H CVPCRR #### [facility] [address] [place] [address] Dr. Carleen Underwood IG % 0.6 % Critically high 0.0-0.5 [facility] Comment on above: Performed By: #### H CVPCRR #### [facility] [address] [place] [address] Dr. Carleen Underwood LYMPH # 2.7 103/ul Normal 1.2-3.8 [facility] Comment on above: Performed By: #### H CVPCRR #### [facility] [address] [place] [address] Dr. Carleen Underwood Lymphocytes/100 WBC (Bld) 24.1 % Normal 20.5-60.0 [facility] Comment on above: Performed By: #### H CVPCRR #### [facility] [address] [place] [address] Dr. Carleen Underwood MANUAL DIFF REQ NO Normal [facility] Comment on above: Performed By: #### H CVPCRR #### [facility] [address] [place] [address] Dr. Carleen Underwood MCH (RBC) [Entitic mass] 23.3 pg Critically low 26.7-34.0 [facility] Comment on above: Performed By: #### H CVPCRR #### [facility] [address] [address] [address] Carleen Underwood MCHC (RBC) [Mass/Vol] 30.6 g/dL Normal 29.9-35.2 [facility] Comment on above: Performed By: #### H CVPCRR #### [facility] [address] [place] [address] Dr. Carleen Underwood MCV (RBC) [Entitic vol] 76.2 fL Critically low 81.0-99.0 [facility] Comment on above: Performed By: #### H CVPCRR #### [facility] [address] [address] [address] Carleen Underwood MONO # 0.7 103/ul Normal 0.3-0.8 [facility] Comment on above: Performed By: #### H CVPCRR #### [facility] [address] [place] [address] Dr. Carleen Underwood Monocytes/100 WBC (Bld) 5.8 % Normal 1.7-12.0 [facility] Comment on above: Performed By: #### H CVPCRR #### [facility] [address] [place] [address] Dr. Carleen Underwood NEUT # 7.6 103/ul Critically high 1.4-6.5 [facility] Comment on above: Performed By: #### H CVPCRR #### [facility] [address] [place] [address] Dr. Carleen Underwood Neutrophils/100 WBC (Bld) 67.7 % Normal 43.0-75.0 [facility] Comment on above: Performed By: #### H CVPCRR #### [facility] [address] [place] [address] Dr. Carleen Underwood Platelet mean volume (Bld) [Entitic vol] 11.1 fL Normal 9.5-13.5 [facility] Comment on above: Performed By: #### H CVPCRR #### [facility] [address] [place] [address] Dr. Carleen Underwood PLT 242 103/ul Normal 150-450 [facility] Comment on above: Performed By: #### H CVPCRR #### [facility] [address] [place] [address] Dr. Carleen Underwood RBC 4.03 106/ul Critically low 4.20-5.40 [facility] Comment on above: Performed By: #### H CVPCRR #### [facility] [address] [place] [address] Dr. Carleen Underwood WBC 11.2 103/ul Critically high 4.0-11.0 [facility] Comment on above: Performed By: #### H CVPCRR #### [facility] [address] [address] [address] Carleen Underwood CBC AUTO DIFFon 07-27-2022 BASO # 0.0 103/ul Normal 0.0-0.1 [facility] Comment on above: Performed By: #### G LU1HR #### [facility] [address] [place] [address] Dr. Carleen Underwood Basophils/100 WBC (Bld) 0.5 % Normal 0.2-2.0 [facility] Comment on above: Performed By: #### G LU1HR #### [facility] [address] [place] [address] Dr. Carleen Underwood EO # 0.1 103/ul Normal 0.0-0.7 [facility] Comment on above: Performed By: #### G LU1HR #### [facility] [address] [place] [address] Dr. Carleen Underwood Eosinophils/100 WBC (Bld) 1.2 % Normal 0.9-7.0 [facility] Comment on above: Performed By: #### G LU1HR #### [facility] [address] [place] [address] Dr. Carleen Underwood Erythrocyte distribution width (RBC) [Ratio] 14.9 % Normal 11.0-15.0 [facility] Comment on above: Performed By: #### G LU1HR #### [facility] [address] [place] [address] Dr. Carleen Underwood Hematocrit (Bld) [Volume fraction] 29.6 % Critically low 36.0-48.0 [facility] Comment on above: Performed By: #### G LU1HR #### [facility] [address] [place] [address] Dr. Carleen Underwood Hemoglobin (Bld) [Mass/Vol] 9.3 g/dL Critically low 12.0-16.0 [facility] Comment on above: Performed By: #### G LU1HR #### [facility] [address] [place] [address] Dr. Carleen Underwood IG # 0.04 10e3/ul Critically high 0.00-0.03 [facility] Comment on above: Performed By: #### G LU1HR #### [facility] [address] [place] [address] Dr. Carleen Underwood IG % 0.5 % Normal 0.0-0.5 [facility] Comment on above: Performed By: #### G LU1HR #### [facility] [address] [address] [address] Carleen Underwood LYMPH # 2.1 103/ul Normal 1.2-3.8 [facility] Comment on above: Performed By: #### G LU1HR #### [facility] [address] [place] [address] Dr. Carleen Underwood Lymphocytes/100 WBC (Bld) 25.5 % Normal 20.5-60.0 [facility] Comment on above: Performed By: #### G LU1HR #### [facility] [address] [place] [address] Dr. Carleen Underwood MANUAL DIFF REQ NO Normal [facility] Comment on above: Performed By: #### G LU1HR #### [facility] [address] [place] [address] Dr. Carleen Underwood MCH (RBC) [Entitic mass] 23.2 pg Critically low 26.7-34.0 [facility] Comment on above: Performed By: #### G LU1HR #### [facility] [address] [place] [address] Dr. Carleen Underwood MCHC (RBC) [Mass/Vol] 31.4 g/dL Normal 29.9-35.2 [facility] Comment on above: Performed By: #### G LU1HR #### [facility] [address] [place] [address] Dr. Carleen Underwood MCV (RBC) [Entitic vol] 73.8 fL Critically low 81.0-99.0 [facility] Comment on above: Performed By: #### G LU1HR #### [facility] [address] [place] [address] Dr. Carleen Underwood MONO # 0.5 103/ul Normal 0.3-0.8 [facility] Comment on above: Performed By: #### G LU1HR #### [facility] [address] [place] [address] Dr. Carleen Underwood Monocytes/100 WBC (Bld) 6.2 % Normal 1.7-12.0 [facility] Comment on above: Performed By: #### G LU1HR #### [facility] [address] [place] [address] Dr. Carleen Underwood NEUT # 5.4 103/ul Normal 1.4-6.5 [facility] Comment on above: Performed By: #### G LU1HR #### [facility] [address] [place] [address] Dr. Carleen Underwood Neutrophils/100 WBC (Bld) 66.1 % Normal 43.0-75.0 [facility] Comment on above: Performed By: #### G LU1HR #### [facility] [address] [place] [address] Dr. Carleen Underwood Platelet mean volume (Bld) [Entitic vol] 11.3 fL Normal 9.5-13.5 [facility] Comment on above: Performed By: #### G LU1HR #### [facility] [address] [place] [address] Dr. Carleen Underwood PLT 238 103/ul Normal 150-450 [facility] Comment on above: Performed By: #### G LU1HR #### [facility] [address] [place] [address] Dr. Carleen Underwood RBC 4.01 106/ul Critically low 4.20-5.40 [facility] Comment on above: Performed By: #### G LU1HR #### [facility] [address] [place] [address] Dr. Carleen Underwood WBC 8.2 103/ul Normal 4.0-11.0 [facility] Comment on above: Performed By: #### G LU1HR #### [facility] [address] [place] [address] Dr. Carleen Underwood Covid-19 PCR (CVDTBH)on SARS-CoV-2 (COVID-19) RNA HUY+probe Ql (Unsp spec) Not detected Normal NOT DETECTED [facility] Comment on above: Result Comment: When diagnostic [...] for this test is supported by the Coater Hand of Health and Human Service's declaration that [...] used). Performed By: #### H CVPCRR #### [facility] [address] [place] [address] Dr. Carleen Underwood DRUG SCREEN RAPID (URINE)on 07-27-2022 AMP Negative Normal NEGATIVE [facility] Comment on above: Performed By: #### G TT3P #### [facility] [address] [place] [address] Dr. Carleen Underwood BAR Negative Normal NEGATIVE [facility] Comment on above: Performed By: #### G TT3P #### [facility] [address] [place] [address] Dr. Carleen Underwood BUP Negative Normal NEGATIVE [facility] Comment on above: Performed By: #### G TT3P #### [facility] [address] [address] [address] Carleen Underwood BZO Negative Normal NEGATIVE [facility] Comment on above: Performed By: #### G TT3P #### [facility] [address] [place] [address] Dr. Carleen Underwood EMIGDIO Negative Normal NEGATIVE [facility] Comment on above: Performed By: #### G TT3P #### [facility] [address] [place] [address] Dr. Carleen Underwood CUT-OFFS SEE BELOW Normal [facility] Comment on above: Result Comment: AMP (Amphetamine): 500ng/mL, BAR (Barbituates): 200 ng/mL, BZO (Benzodiazepines): 150 ng/mL, BUP (Buprenorphine): 10 ng/mL, EMIGDIO (Cocaine): 150 ng/mL, mAMP (Methamphetamine): 500 ng/mL, MTD (Methadone): 200 ng/mL, OPI (Opiates): 100 ng/mL, OXY (Oxycodone): 100 ng/mL, PCP (Phencyclidine): 25 ng/mL, PPX (Propoxyphene): 300 ng/mL, THC (Cannabinoids): 50 ng/mL, TCA (Trycyclic Antidepressants): 300 ng/mL Performed By: #### G TT3P #### [facility] [address] [place] [address] Dr. Carleen Underwood DRUG CUT HEADER DRUG CLASS TEST SYST EM CUT-OFF CONCENTRATIONS ARE FOLLOWS: Normal [facility] Comment on above: Performed By: #### G TT3P #### [facility] [address] [place] [address] Dr. Carleen Underwood mAMP Negative Normal NEGATIVE [facility] Comment on above: Performed By: #### G TT3P #### [facility] [address] [place] [address] Dr. Carleen Underwood MTD Negative Normal NEGATIVE [facility] Comment on above: Performed By: #### G TT3P #### [facility] [address] [place] [address] Dr. Carleen Underwood OPI Negative Normal NEGATIVE [facility] Comment on above: Performed By: #### G TT3P #### [facility] [address] [place] [address] Dr. Carleen Underwood OXY Negative Normal NEGATIVE [facility] Comment on above: Performed By: #### G TT3P #### [facility] [address] [place] [address] Dr. Carleen Underwood PCP Negative Normal NEGATIVE [facility] Comment on above: Performed By: #### G TT3P #### [facility] [address] [address] [address] Carleen Underwood PPX Negative Normal NEGATIVE [facility] Comment on above: Performed By: #### G TT3P #### [facility] [address] [address] [address] Carleen Underwood TCA Negative Normal NEGATIVE [facility] Comment on above: Performed By: #### G TT3P #### [facility] [address] [address] [address] Carleen Underwood THC Negative Normal NEGATIVE [facility] Comment on above: Performed By: #### G TT3P #### [facility] [address] [address] [address] Carleen Underwood TYPE AND SCREENon 07-27-2022 TYPE AND SCREEN Negative Normal [facility] Comment on above: Performed By: #### G TT3P #### [facility] [address] [address] [address] Carleen Underwood US PREG AMNIOTIC FLUID [...] by: FOUZIA CALERO Date: 2022-07-12 16:24 Normal [facility] US PREG BIOPHY W NON [...] BRANDI ANN Date: 2022-07-09 16:35 Normal [facility] US PREG BIOPHY W NON STRESSo n [...] FOUZIA CALERO Date: 2022-07-06 17:28 Normal [facility] GROUP B STREP CULTUREon 06-26 S. agalactiae Ag Ql (Unsp spec) Culture Observations: NEGATIVE FOR GROUP B STREPTOCOCCUS. Normal [facility] Comment on above: Performed By: #### G TT3P #### [facility] [address] [place] [address] Dr. Carleen Underwood US PREG GROWTHon 07-05-2022 [...] Marroquin was notified of these findings by swing saw operator at time of imaging. 3. Biparietal diameter is at 8th percentile. Electronically authenticated by: FOUZIA CALERO Date: 2022-07-05 16:58 Normal [facility] US PREG GROWTHon 06-11-2022 US PREG GROWTH [...] by: FOUZIA CALERO Date: 2022-06-11 16:22 Normal [facility] PREG INCOMPLETE ANATOMYon 06-11-2022 US PREG INCOMPLETE [...] by: FOUZIA CALERO Date: 2022-06-11 16:20 Normal [facility] US PREG INCOMPLETE ANATOMYon 05-14-2022 [...] FOUZIA CALERO Date: 2022-05-14 17:15 Normal [facility] GTT 3 HR PREGon 04-24-2022 Glucose [Mass/Vol] 91 mg/dL Normal 74-106 [facility] Comment on above: Performed By: #### G TT3P #### [facility] [address] [address] [address] Carleen Underwood Glucose [Mass/Vol] 141 mg/dL Normal [facility] Comment on above: Performed By: #### G TT3P #### [facility] [address] [address] [address] Carleen Underwood Glucose [Mass/Vol] 103 mg/dL Normal [facility] Comment on above: Performed By: #### G TT3P #### [facility] [address] [address] [address] Carleen Underwood Glucose [Mass/Vol] 75 mg/dL Normal [facility] Comment on above: Performed By: #### G TT3P #### [facility] [address] [place] [address] Dr. Carleen Underwood US PREG INCOMPLETE ANATOMYon [...] cervical os Normal ventricular outflow tracts Normal [facility] PAP ACOG PANEL 2: 30 to 65on 04-20-2022 . . Normal [facility] Comment on above: Result Comment: Perf ormed at: WB Performed By: #### [id number] #### [facility] [address] [place] [address] Dr. Carleen Underwood Age Gdln ACOG Testing 30-65 Normal [facility] Comment on above: Performed By: #### [id number] #### [facility] [address] [place] [address] Dr. Carleen Underwood DIAGNOSIS: Comment Normal [facility] Comment on above: Result Comment: NEGA TIVE FOR INTRAEPITHELIAL LESION OR MALIGNANCY. Performed at: WB Performed By: #### [id number] #### [facility] [address] [place] [address] Dr. Carleen Underwood HPV Aptima Negative Normal Negative [facility] Comment on above: Result Comment: This nucleic acid amplification test detects fourteen high-risk HPV types (16,18,31,33,35,39,45,51,52,56,58,59,66,68) without differentiation. Performed at: =G Performed By: #### [id number] #### [facility] [address] [place] [address] Dr. Carleen Underwood Methodology: Comment Normal [facility] Comment on above: Result Comment: This liquid based ThinPrep(R) pap test was screened with the use of an image guided system. Performed at: WB Performed By: #### [id number] #### [facility] [address] [place] [address] Dr. Carleen Underwood Note: Comment Normal [facility] Comment on above: Result Comment: The Pap smear is a screening test designed to aid in the detection of premalignant and malignant conditions of the uterine cervix. It is not a diagnostic procedure and should not be used as the sole means of detecting cervical cancer. Both false-positive and false-negative reports do occur. . Performed at: WB Performed By: #### [id number] #### [facility] [address] [place] [address] Dr. Carleen Underwood Performed by: Comment Normal [facility] Comment on above: Result Comment: Carol Aguilar, Ob/Gyn Performed at: WB Performed By: #### [id number] #### [facility] [address] [place] [address] Dr. Carleen Underwood Specimen adequacy: Comment Normal [facility] Comment on above: Result Comment: Sati sfactory for evaluation. No endocervical component is identified. Performed at: WB Performed By: #### [id number] #### [facility] [address] [place] [address] Dr. Carleen Underwood CHLAMYDIA/GONOCOCCUS HUY (SW AB/URINE/PAPon 04-19-2022 Chlamydia trachomatis, HUY Negative Normal Negative [facility] Comment on above: Performed By: #### H CVPCRR #### [facility] [address] [place] [address] Dr. Carleen Underwood Neisseria gonorrhoeae, HUY Negative Normal Negative [facility] Comment on above: Performed By: #### H CVPCRR #### [facility] [address] [place] [address] Dr. Carleen Underwood VAGINITIS/VAGINOSIS DNA PROB True 04-19-2022 Priya species Negative Normal Negative [facility] Comment on above: Performed By: #### G LU1HR #### [facility] [address] [place] [address] Dr. Carleen Underwood Gardnerella vaginalis Negative Normal Negative [facility] Comment on above: Performed By: #### G LU1HR #### [facility] [address] [place] [address] Dr. Carleen Underwood Trichomonas vaginalis Negative Normal Negative [facility] Comment on above: Performed By: #### G LU1HR #### [facility] [address] [place] [address] Dr. Carleen Underwood GLUCOSE - 1HRon 04-17-2022 Glucose [Mass/Vol] 150 mg/dL Critically high 74-106 [facility] Comment on above: Performed By: #### G LU1HR #### [facility] [address] [place] [address] Dr. Carleen Underwood HEMOGRAM AND PLATELon 2021 Hematocrit (Bld) [Volume fraction] 31.9 % Critically low 36.0-48.0 [facility] Comment on above: Performed By: #### H H #### [facility] [address] [place] [address] Dr. Carleen Underwood Hemoglobin (Bld) [Mass/Vol] 10.3 g/dL Critically low 12.0-16.0 [facility] Comment on above: Performed By: #### H H #### [facility] [address] [place] [address] Dr. Carleen Underwood MCH (RBC) [Entitic mass] 26.6 pg Critically low 26.7-34.0 [facility] Comment on above: Performed By: #### H H #### [facility] [address] [place] [address] Dr. Carleen Underwood MCHC (RBC) [Mass/Vol] 32.3 g/dL Normal 29.9-35.2 [facility] Comment on above: Performed By: #### H H #### [facility] [address] [place] [address] Dr. Carleen Underwood MCV (RBC) [Entitic vol] 82.4 fL Normal 81.0-99.0 [facility] Comment on above: Performed By: #### H H #### [facility] [address] [place] [address] Dr. Carleen Underwood PLT 233 103/ul Normal 150-450 [facility] Comment on above: Performed By: #### H H #### [facility] [address] [place] [address] Dr. Carleen Underwood RBC 3.87 106/ul Critically low 4.20-5.40 [facility] Comment on above: Performed By: #### H H #### [facility] [address] [place] [address] Dr. Carleen Underwood WBC 8.5 103/ul Normal 4.0-11.0 [facility] Comment on above: Performed By: #### H H #### [facility] [address] [place] [address] Dr. Carleen Underwood AFP MATERNAL FOR SPINA BIFID Aon 03-22-2022 AFP MoM 1.08 Normal [facility] Comment on above: Performed By: #### H CVPCRR #### [facility] [address] [address] [address] Carleen Underwood AFP Value 43.1 ng/mL Normal [facility] Comment on above: Performed By: #### H CVPCRR #### [facility] [address] [address] [address] Carleen Underwood AFP, Serum for Spina Bifida Report Normal [facility] Comment on above: Performed By: #### H CVPCRR #### [facility] [address] [address] [address] Carleen Underwood Comment Comment Normal [facility] Comment on above: Result Comment: Re Quick, Ph.D., [facility] Director . References: Available Upon Request. . Multiples Of Median Cutoffs For AFP Elevations [place] 2.5 Black 2.8 IDD 2.0 Twins 4.5 Abbreviation Definitions IDD - Insulin Dep Diabetes OSBR - Open Spina Bifida Risk . For further inquiries contact [facility] at [phone]. . This test was developed and its performance characteristics determined by [facility]. It has not been cleared or approved by the Food and Drug Administration. Performed By: #### H CVPCRR #### [facility] [address] [place] [address] Dr. Carleen Marie Age Collection Date 19.4 weeks [facility] Comment on above: Performed By: #### H CVPCRR #### [facility] [address] [address] [address] Carleen Underwood Gestat, Age Based on LMP [facility] Comment on above: Result Comment: Reca lculations are not recommended when gestational dating by LMP and ultrasound are within 10 days. Performed By: #### H CVPCRR #### [facility] [address] [place] [address] Dr. Carleen Underwood Insulin Dep Diabetes No Normal [facility] Comment on above: Performed By: #### H CVPCRR #### [facility] [address] [address] [address] Carleen Underwood Interpretation Comment Normal [facility] Comment on above: Result Comment: Inte rpretation: [...] Customer Services to discuss available options. The [employer] recommends amniocentesis be offered to women age 35 and older. Performed By: #### H CVPCRR #### [facility] [address] [place] [address] Dr. Carleen Underwood [age] Normal [facility] Comment on above: Performed By: #### H CVPCRR #### [facility] [address] [place] [address] Dr. Carleen Underwood Multiple Gestation No Normal [facility] Comment on above: Performed By: #### H CVPCRR #### [facility] [address] [address] [address] Carleen Underwood OSBR Risk 1 [place] [address]40 Normal [facility] Comment on above: Performed By: #### H CVPCRR #### [facility] [address] [address] [address] Carleen Underwood PDF . Normal [facility] Comment on above: Performed By: #### H CVPCRR #### [facility] [address] [place] [address] Dr. Carleen Underwood Race Normal [facility] Comment on above: Performed By: #### H CVPCRR #### [facility] [address] [place] [address] Dr. Carleen Underwood Test Results: Negative Normal [facility] Comment on above: Performed By: #### H CVPCRR #### [facility] [address] [place] [address] Dr. Carleen Underwood US PREG ANATOMY SINGLEon [...] CALERO Date: 2022-03-19 17:04 Normal [facility] GLUCOSE - 1HRon 02-14-2022 Glucose [Mass/Vol] 107 mg/dL Critically high 74-106 [facility] Comment on above: Performed By: #### H CVPCRR #### [facility] [address] [address] [address] Carleen Underwood HEP B SURFACE ANTIGEN SCREEN on 01-13-2022 HBsAg Screen Negative Normal Negative [facility] Comment on above: Performed By: #### H BSANS #### [facility] [address] [address] [address] Carleen Underwood HEPATITIS C VIRUS AB W/ REFL EX QUANTon 01-13-2022 HCV AB <0.1 Normal 0.0-0.9 [facility] Comment on above: Performed By: #### H CVPCRR #### [facility] [address] [place] [address] Dr. Carleen Underwood Interpretation: Comment Normal [facility] Comment on above: Result Comment: Nega tive Not infected with HCV, unless recent infection is suspected or other evidence exists to indicate HCV infection. Performed By: #### H CVPCRR #### [facility] [address] [place] [address] Dr. Carleen Underwood HIV 1 AND 2 WITH REFLEXon HIV Screen 4th Generation wRfx Non-Reactive Normal Non Reactive [facility] Comment on above: Result Comment: HIV Negative HIV-1/HIV-2 antibodies and HIV-1 p24 antigen were NOT detected. There is no laboratory evidence of HIV infection. Performed By: #### G LU1HR #### [facility] [address] [place] [address] Dr. Carleen Underwood RPR QUANTon 01-13-2022 Rapid Plasma Reagin, Quant Non-Reactive Normal NonRea<1:1 [facility] Comment on above: Result Comment: Dacia briones Note: This test does not meet current guidelines for screening and diagnosis of syphilis. This test is intended for following treatment response in patients being treated for syphilis infection. To screen for syphilis infection, a reflex cascade that includes both RPR and a treponema-specific assay should be utilized, such as Treponema pallidum (Syphilis) Screening Mellette (454775) or Rapid Plasma Reagin (RPR) Test With Reflex to Quantitative RPR and Confirmatory Treponema pallidum Antibodies (571275). Performed By: #### H CVPCRR #### [facility] [address] [place] [address] Dr. Carleen Underwood RUBELLA AB IGGon 01-13-2022 Rubella Antibodies, IgG 4.86 index Normal Immune >0.99 [facility] Comment on above: Result Comment: Non- immune <0.90 Equivocal 0.90 - 0.99 Immune >0.99 Performed By: #### R UBIGG #### [facility] [address] [place] [address] Dr. Carleen Underwood CBC AUTO DIFFon 01-12-2022 BASO # 0.0 103/ul Normal 0.0-0.1 [facility] Comment on above: Performed By: #### C BC #### [facility] [address] [place] [address] Dr. Carleen Underwood Basophils/100 WBC (Bld) 0.4 % Normal 0.2-2.0 [facility] Comment on above: Performed By: #### C BC #### [facility] [address] [place] [address] Dr. Carleen Underwood EO # 0.1 103/ul Normal 0.0-0.7 [facility] Comment on above: Performed By: #### C BC #### [facility] [address] [place] [address] Dr. Carleen Underwood Eosinophils/100 WBC (Bld) 1.1 % Normal 0.9-7.0 [facility] Comment on above: Performed By: #### C BC #### [facility] [address] [place] [address] Dr. Carleen Underwood Erythrocyte distribution width (RBC) [Ratio] 14.5 % Normal 11.0-15.0 [facility] Comment on above: Performed By: #### C BC #### [facility] [address] [place] [address] Dr. Carleen Underwood Hematocrit (Bld) [Volume fraction] 35.8 % Critically low 36.0-48.0 [facility] Comment on above: Performed By: #### C BC #### [facility] [address] [place] [address] Dr. Carleen Underwood Hemoglobin (Bld) [Mass/Vol] 11.2 g/dL Critically low 12.0-16.0 [facility] Comment on above: Performed By: #### C BC #### [facility] [address] [place] [address] Dr. Carleen Underwodo IG # 0.02 10e3/ul Normal 0.00-0.03 [facility] Comment on above: Performed By: #### C BC #### [facility] [address] [place] [address] Dr. Carleen Underwood IG % 0.4 % Normal 0.0-0.5 [facility] Comment on above: Performed By: #### C BC #### [facility] [address] [place] [address] Dr. Carleen Underwood LYMPH # 1.6 103/ul Normal 1.2-3.8 [facility] Comment on above: Performed By: #### C BC #### [facility] [address] [place] [address] Dr. Carleen Underwood Lymphocytes/100 WBC (Bld) 27.9 % Normal 20.5-60.0 [facility] Comment on above: Performed By: #### C BC #### [facility] [address] [place] [address] Dr. Carleen Underwood MANUAL DIFF REQ NO Normal [facility] Comment on above: Performed By: #### C BC #### [facility] [address] [place] [address] Dr. Carleen Underwood MCH (RBC) [Entitic mass] 26.1 pg Critically low 26.7-34.0 [facility] Comment on above: Performed By: #### C BC #### [facility] [address] [place] [address] Dr. Carleen Underwood MCHC (RBC) [Mass/Vol] 31.3 g/dL Normal 29.9-35.2 [facility] Comment on above: Performed By: #### C BC #### [facility] [address] [place] [address] Dr. Carleen Underwood MCV (RBC) [Entitic vol] 83.4 fL Normal 81.0-99.0 [facility] Comment on above: Performed By: #### C BC #### [facility] [address] [place] [address] Dr. Carleen Underwood MONO # 0.4 103/ul Normal 0.3-0.8 [facility] Comment on above: Performed By: #### C BC #### [facility] [address] [place] [address] Dr. Carleen Underwood Monocytes/100 WBC (Bld) 6.2 % Normal 1.7-12.0 [facility] Comment on above: Performed By: #### C BC #### [facility] [address] [place] [address] Dr. Carleen Underwood NEUT # 3.7 103/ul Normal 1.4-6.5 [facility] Comment on above: Performed By: #### C BC #### [facility] [address] [place] [address] Dr. Carleen Underwood Neutrophils/100 WBC (Bld) 64.0 % Normal 43.0-75.0 [facility] Comment on above: Performed By: #### C BC #### [facility] [address] [place] [address] Dr. Carleen Underwood Platelet mean volume (Bld) [Entitic vol] 10.3 fL Normal 9.5-13.5 [facility] [facility] [place] Comment on above: Performed By: #### C BC #### [facility] [place] [facility] [address] [place] [address] Dr. Carleen Underwood PLT 229 103/ul Normal 150-450 [facility] [place] Comment on above: Performed By: #### C BC #### [facility] [place] [facility] [address] [place] [address] Dr. Carleen Underwood RBC 4.29 106/ul Normal 4.20-5.40 [facility] [place] Comment on above: Performed By: #### C BC #### [facility] [place] [facility] [address] [place] [address] Dr. Carleen Underwood WBC 5.7 103/ul Normal 4.0-11.0 [facility] [place] Comment on above: Performed By: #### C BC #### [facility] [place] [facility] [address] [place] [address] Dr. Carleen Underwood CULTURE URINEon 01-12-2022 CULTURE URINE Culture Observations : LIGHT GROWTH OF MIXED GENITAL YULI. NO POTENTIAL PATHOGENS SEEN. Normal [facility] [place] Comment on above: Performed By: #### U RCX #### [facility] [place] [facility] [address] [place] [address] Dr. Carleen Underwood GLYCOHEMOGLOBIN A1Con 2021 ADA RECOMMENDATION SEE BELOW Normal [facility] [place] Comment on above: Result Comment: ADA RECOMMENDED LIMIT 4.0 - 6.0 ADA THERAPEUTIC TARGET < 7.0 ACTION SUGGESTED > 7.0 Performed By: #### G LU1HR #### [facility] [place] [facility] [address] [address] [address] Carleen Underwood Glucose [Mass/Vol] 100 mg/dL Normal [facility] Comment on above: Performed By: #### G LU1HR #### [facility] [place] [facility] [address] [address] [address] Carleen Underwood HbA1c (Bld) [Mass fraction] 5.1 % Normal 4.5-6.2 [facility] Comment on above: Performed By: #### G LU1HR #### [facility] [place] [facility] [address] [address] [address] Carleen Underwood EMILY BOX TEST PT SEND OUTo n 01-12-2022 SENT TO REF LAB 01/12/2022 Normal [facility] [place] Comment on above: Performed By: #### H CVPCRR #### [facility] [place] [facility] [address] [address] [address] Carleen Underwood TYPE AND SCREENon 01-12-2022 TYPE AND SCREEN Negative Normal [facility] Comment on above: Performed By: #### T NS #### [facility] [place] [facility] [address] [place] [address] Dr. Carleen Underwood US PREG TVon 12-29-2021 [...] ANN Date: 2021-12-29 16:07 Normal [facility] Coding Summary.on 02-12-2020 Coding Summary. CODING DATE: 020 [facility] STATUS: Home (Routine DC) PAYOR: [...] Esquivel Date Saved: 02/12/2020 10:10 am Normal [facility] Physician Orderon 02-07-2020 Physician Order [id number]:127 Normal [facility] Vital Signs Date Time Vital Sign Value Performing Clinician Facility 07-15-2023 13:00-0500 Body height 170.81 cm Chery Aranda Other [facility] Other 07-15-2023 13:00-0500 Body mass index (BMI) [Ratio] 39.95 kg/m2 Chery Aranda Other [facility] Other 07-15-2023 13:00-0500 Body weight 116.58 kg Chery Aranda Other [facility] Other 07-15-2023 13:00-0500 Diastolic blood pressure 74 mm[Hg] Chery Aranda Other [facility] Other 07-15-2023 13:00-0500 Systolic blood pressure 107 mm[Hg] Chery Aranda Other [facility] Other 06-14-2023 13:30-0400 Body height 170.81 cm Chery Aranda Other [facility] Other 06-14-2023 13:30-0400 Body mass index (BMI) [Ratio] 39.42 kg/m2 Chery Aranda Other [facility] Other 06-14-2023 13:30-0400 Body weight 115.03 kg Chery Aranda Other [facility] Other 06-14-2023 13:30-0400 Diastolic blood pressure 72 mm[Hg] Chery Aranda Other [facility] Other 06-14-2023 13:30-0400 Systolic blood pressure 118 mm[Hg] Chery Aranda Other [facility] Other 05-16-2023 13:00-0400 Body height 170.81 cm Chery Aranda Other [facility] Other 05-16-2023 13:00-0400 Body mass index (BMI) [Ratio] 40.1 kg/m2 Chery Aranda Other [facility] Other 05-16-2023 13:00-0400 Body weight 117.03 kg Chery Aranda Other [facility] Other 05-16-2023 13:00-0400 Diastolic blood pressure 67 mm[Hg] Chery Aranda Other [facility] Other 05-16-2023 13:00-0400 Systolic blood pressure 102 mm[Hg] Chery Aranda Other [facility] Other 04-15-2023 13:00-0400 Body height 170.81 cm Chery Aranda Other [facility] Other 04-15-2023 13:00-0400 Body mass index (BMI) [Ratio] 41.35 kg/m2 Chery Manoj Other [facility] Other 04-15-2023 13:00-0400 Body weight 120.66 kg Chery Aranda Other [facility] Other 04-15-2023 13:00-0400 Diastolic blood pressure 71 mm[Hg] Cherysimone Aranda Other [facility] Other 04-15-2023 13:00-0400 Systolic blood pressure 110 mm[Hg] Chery Manoj Other [facility] Other 03-22-2022 02:06-0400 Body weight 117.[address] PAZ WEST [facility] Comment on above: Performed By: #### HCVPCRR #### [facility] [place] [facility] [address] [address] [address] Carleen Underwood Encounters Encounter Date Encounter Type Care Provider Facility Start: 01-13-2024 End: 01-13-2024 ambulatory EN FLORESKER [facility] Start: 01-11-2024 Evaluation and management of inpatient BRANDI Nixon [facility] Start: 01-08-2024 End: 01-08-2024 ambulatory FRIEDA MILLS Not Available Start: 12-25-2023 End: 12-25-2023 ambulatory DINH AYDE Not Available Start: 12-11-2023 End: 12-11-2023 ambulatory DINH AYDE Not Available Start: 11-27-2023 End: 11-27-2023 ambulatory FRIEDA MILLS Not Available Start: 11-13-2023 End: 11-13-2023 ambulatory DINH AYDE Not Available Start: 10-17-2023 End: 10-18-2023 ambulatory COLIN BOWLING [facility] Start: 10-16-2023 End: 10-16-2023 ambulatory DINH AYDE Not Available Start: 10-04-2023 Chart abstracting Chao Marmolejo MD Work Phone: [facility] Start: 09-18-2023 End: 09-18-2023 ambulatory FRIEDA MILLS Not Available Start: 08-20-2023 End: 08-20-2023 ambulatory DINH MARROQUIN Not Available Start: 07-26-2023 End: 07-26-2023 ambulatory DINH MARROQUIN Not Available Start: 07-15-2023 End: 07-15-2023 ambulatory Chery Aranda Other [facility] Other Start: 07-15-2023 Office outpatient vi sit [address] [facility] Start: 06-14-2023 End: 06-14-2023 ambulatory Chery Aranda Other [facility] Other Start: 06-14-2023 Office outpatient vi sit [address] [facility] Start: 05-16-2023 End: 05-16-2023 ambulatory Chery Aranda Other [facility] Other Start: 05-16-2023 Office outpatient vi sit [address] [facility] Start: 04-15-2023 End: 04-15-2023 ambulatory Chery Aranda Other [facility] Other Start: 04-15-2023 Office outpatient ne w [address] [facility] Start: 07-31-2022 End: 07-31-[address] [...] End: 10-22-2023 Patient encounter procedure [facility] Start: 04-26-2023 Influenza vaccination Influenza Vacc ine [facility] Start: 2011 Screening for malign ant neoplasm of cervix Pap Smear [facility] Start: 2009 DTaP,Tdap and Td Vaccines (1 - Tdap) DTaP,Tdap and Td Vaccines (1 - Tdap) [facility] Start: 2008 Adult BMI Screening Adult BMI Screen ing [facility] Start: 2002 Depression Screening Depression Scre ening [facility] Start: 2002 Tobacco Screening Tobacco Screening [facility] Immunizations Immunization Date Immunization Notes Care Provider Fa cilidavid 09-08-2019 influenza virus vaccine, unspecified formulation Chao Ling MD Work Phone: [facility] Payers Date Payer Category Payer Private Health Insurance [employer] A ETNA POS [id number] 2017-Present [phone] [address] [place] [address] [id number] 2014 Private Health Insurance [id number] 1990 Unknown [id number] 2.840.1.639069.3.579.2.5 1990 Unknown [id number] 2..840.1.081748.3.579.2.5 1990 Unknown [id number] 2..840.1.704868.3.579.2.5 1990 Unknown [id number] 2.16.840.1.711694.3.579.2.5 1990 Unknown [id number] 2.16.840.1.984876.3.579.2.5 1990 Unknown [id number] 2.16.840.1.205699.3.579.2.5 93 1990 Unknown [id number] 2.16.840.1.829463.3.579.2.5 93 1990 Unknown [id number] 2.16.840.1.834429.3.579.2.5 93 1990 Unknown [id number] 2.16.840.1.321020.3.579.2.5 93 1990 Unknown [id number] 2.16.840.1.933834.3.579.2.5 93 1990 Unknown [id number] 2.16.840.1.213155.3.579.2.5 93 1990 Unknown [id number] 2.16.840.1.245122.3.579.2.5 93 1990 Unknown [id number] 2.16.840.1.066628.3.579.2.5 93 1990 Unknown [id number] 2.16.840.1.527088.3.579.2.5 93 1990 Unknown [id number] 2.16.840.1.920361.3.579.2.5 93 1990 Unknown [id number] 2.16.840.1.840263.3.579.2.5 93 1990 Unknown [id number] 2.16.840.1.677312.3.579.2.5 93 1990 Unknown [id number] 2.16.840.1.275740.3.579.2.5 93 1990 Unknown [id number] 2.16.840.1.555867.3.579.2.1 259 1990 Unknown [id number] 2.16.840.1.622227.3.579.2.1 259 1990 Unknown [id number] 2.16.840.1.052318.3.579.2.1 259 1990 Unknown [id number] 2.16.840.1.078229.3.579.2.1 259 1990 Unknown [id number] 2.16.840.1.968668.3.579.2.1 259 1990 Unknown [id number] 2.16.840.1.089591.3.579.2.1 259 1990 Unknown [id number] 2.16.840.1.190838.3.579.2.1 259 1990 Unknown [id number] 2.16.840.1.238088.3.579.2.1 259 1990 Unknown [id number] 2.16.840.1.540661.3.579.2.1 259 1990 Unknown [id number] 2.16.840.1.634806.3.579.2.1 286 1990 Unknown [id number] 2.16.840.1.835715.3.579.2.1 286 1959 Private Health Insurance [id number] 1959 Unknown [id number] Unknown [id number] 2.16.840.1.710799.3.579.2.5 93 Social History Date Type Detail Facility Unknown if ever smoked [facility] Other Start: 10-06-2020 End: 10-04-2023 Sex Assigned At [employer] Other Start: 09-11-2019 Tobacco smoking stat [facility] Never smoked tobacco [facility] Start: 09-11-2019 Tobacco use and exposure Smokeless tobacco non-user [facility] Start: 10-04-2023 Alcohol intake Ex-drinker (finding) [facility] Start: 10-06-2020 End: 10-04-2023 History of Social function [facility] Childcare Unknown [facility] Start: 05-30-2023 [facility] Start: 1990 [facility] 07-15-2023 Note Date & Type Note Facility 07-15-2023 Evaluation note Encounter Date Diagnosis Assessment Notes Jun, First trimester (ICD-10 - Z34.91) Continued followup w Dr. Marroquin. No further adipex. [facility] Other Evaluation note 06-14-2023 Note Date & [...] index [BMI] 39.0-39.9, adult (ICD-10 - Z68.39) [facility] Other Evaluation note 05-16-2023 Note Date & [...] index [BMI] 40.0-44.9, adult (ICD-10 - Z68.41) [facility] Other Evaluation note 04-15-2023 Note Date & [...] index [BMI] 40.0-44.9, adult (ICD-10 - Z68.41) [facility] Other History general Narrative - Reported Note Date & Type Note Facility History general Narrative - Reported Type Surgical History T & A 2010 Surgical History Gallbladder 2012 [facility] Other History general Narrative - Reported Note Date & Type Note Facility History general Narrative - Reported Type Surgical History T & A 2010 Surgical History Gallbladder 2013 Hospitalization History see surgical hx [facility] Other History general Narrative - Reported Note [...] Gallbladder 2012 Hospitalization History see surgical hx [facility] Other Instructions Note Date & Type Note Facility Instructions Not on filedocumented in this en counter [facility] Summary Purpose Family History No Family History Records FoundNo Family History Records FoundNo Family History Records FoundNo Family History Records FoundNo Family History Records Found Advance Directives No Advanced Directives Records FoundNo Advanced Directives Records FoundNo Advanced Directives Records FoundNo Advanced Directives Records FoundNo Advanced Directives Records Found Additional Source Comments INFORMATION SOURCE (unrecogn ized section and content) DATE CREATED AUTHOR 03/11/2020 [facility] DATE CREATED AUTHOR AUTHOR'S ORGANIZ ATION 08/04/[address] [facility] DATE CREATED AUTHOR AUTHOR'S ORGANIZ ATION 01/08/[address] 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 [facility] provides no warranty or guarantee of the accuracy or completeness of information in this document.
== END 2024-01-11 15:35 | disposition short-term general hospital (02) ==
PROVIDERS: Obstetrics & Gynecology; Admitting Provider Obstetrics & Gynecology Gynecology; PCP Family Medicine; Visit Provider Obstetrics & Gynecology Gynecology
DX: O14.13 Severe pre-eclampsia, third trimester (principal); O99.013 Anemia complicating pregnancy, third trimester; D64.9 Anemia, unspecified; O99.343 Other mental disorders complicating pregnancy, third trimester; F32.A Depression, unspecified; F41.9 Anxiety disorder, unspecified; O99.353 Diseases of the nervous system complicating pregnancy, third trimester; G43.909 Migraine, unspecified, not intractable, without status migrainosus; Z14.8 Genetic carrier of other disease; Z90.49 Acquired absence of other specified parts of digestive tract; Z3A.34 34 weeks gestation of pregnancy; Z90.89 Acquired absence of other organs
CPT/HCPCS: 36415; 59025; 80053; 82570; 84156; 84550; 85025; 96365; 96375; 96376; G0378; G0379

== ENCOUNTER 2024-01-15 19:11 | Emergency (ER) | payer OTHER, SELFPAY ==
[2024-01-15] VITALS (27 sets, daily range): BP systolic 141–179; BP diastolic 81–118; PULSE 74–102; TEMP 36.7; O2SAT 97–98; BMI 35.4
--- OUTSIDE RECORDS SUMMARY | 2024-01-15 19:20 | XMS_ITS | CCD ---
Author Organization [facility] Care Team Providers Care Director Of Online Education Name Role Phone WEST, DR BRANDI Quinonez [...] TAO Admitting Unavailable Chery Aranda Unavailable Sea GARBAGE COLLECTOR-CLINICAL CODEREn Primary Care Provider COLIN BOWLING Referring Unavailable DINH MARROQUIN Primary Care Unavailable AYDE, DINH Attending Unavailable GENE, FRIEDA Attending Unavailable AYDE, DINH Attending Unavailable AYDE, DINH Attending Unavailable FRIEDA MILLS Attending Unavailable AYDE, DINH Attending Unavailable AYDE, DINH Attending Unavailable FRIEDA MILLS Attending Unavailable BRANDI LAST Admitting Unavailable SHALA, BRANDI Nixon Attending Unavailable DEE DERAS Referring Unavailable NE OSEI Primary Care Unavailable FRANKO HEMPHILL Consulting [...] Active Start: 05-16-2023 take 1 capsule by [facility] every twenty-four hours Phentermine HCl 37.5 MG 1 capsule Orally Once a day for 30 days Apr, Active Start: 04-15-2023 take 1 capsule by [facility] every twenty-four hours Phentermine HCl 37.5 MG 1 capsule Orally Once a day for 30 days Mar, Active [id number] ac id 29 mg iron- 1 mg [...] 24 ABSOLUTE BASOPHIL 0.0 X10E9/L Normal 0.0-0.2 [facility] Comment on above: Performed By: #### C BCA, CMP, 2532-0, 3084-1, FEPR, 2276-4, 91553-7 #### [facility] ([id number]) [address], [address] [place] [address] ABSOLUTE NEUTROPHIL 7.6 X10E9/L High 1.5-6.6 [facility] Comment on above: Performed By: #### C BCA, CMP, 2532-0, 3084-1, FEPR, 2276-4, 46206-1 #### [facility] ([id number]) [address] [address] [place] [address] Basophils/100 WBC (Bld) 0.3 % Normal [facility] Comment on above: Performed By: #### C BCA, CMP, 2532-0, 3084-1, FEPR, 6-4, 66959-2 #### [facility] ([id number]) [address] [address] Eosinophils (Bld) [#/Vol] 0.0 10*3/uL Normal 0.0-0.4 [facility] Comment on above: Performed By: #### C BCA, CMP, 2532-0, 3084-1, FEPR, 2276-4, 93635-8 #### [facility] ([id number]) [address] [address] [place] [address] Eosinophils/100 WBC (Bld) 0.1 % Normal [facility] Comment on above: Performed By: #### C BCA, CMP, 2532-0, 3084-1, FEPR, 2276-4, 92073-5 #### [facility] ([id number]) [address], [facility] [address] [place] [address] Erythrocyte distribution width (RBC) [Ratio] 15.2 % High 11.5-15.0 [facility] Comment on above: Performed By: #### C BCA, CMP, 2532-0, 3084-1, FEPR, 2276-4, 21164-1 #### [facility] ([id number]) [address], [address] [place] [address] Hematocrit (Bld) [Volume fraction] 23.2 % Low 35-47 [facility] Comment on above: Performed By: #### C BCA, CMP, 2532-0, 3084-1, FEPR, 6-4, 86444-0 #### [facility] ([id number]) [address], [facility] [address] [place] [address] Hemoglobin (Bld) [Mass/Vol] 7.8 g/dL Low 11.7-15.5 [facility] Comment on above: Performed By: #### C BCA, CMP, 2532-0, 3084-1, FEPR, 6-4, 85338-7 #### [facility] ([id number]) [address], [facility] [address] [place] [address] Lymphocytes (Bld) [#/Vol] 1.9 10*3/uL Normal 1.0-3.5 [facility] Comment on above: Performed By: #### C BCA, CMP, 2532-0, 3084-1, FEPR, 6-4, 62974-4 #### [facility] ([id number]) [address] [address] Lymphocytes/100 WBC (Bld) 18.8 % Normal [facility] Comment on above: Performed By: #### C BCA, CMP, 2532-0, 3084-1, FEPR, 2276-4, 13531-7 #### [facility] ([id number]) [address] [address] [place] [address] MCH (RBC) [Entitic mass] 25.1 pg Low 27-34 [facility] Comment on above: Performed By: #### C BCA, CMP, 2532-0, 3084-1, FEPR, 2276-4, 82021-1 #### [facility] ([id number]) [address], [address] [place] [address] MCHC (RBC) [Mass/Vol] 33.8 g/dL Normal 32-36 [facility] Comment on above: Performed By: #### C BCA, CMP, 2532-0, 3084-1, FEPR, 6-4, 14694-0 #### [facility] ([id number]) [address], [address] [place] [address] MCV (RBC) [Entitic vol] 74 fL Low 80-100 [facility] Comment on above: Performed By: #### C BCA, CMP, 2532-0, 3084-1, FEPR, 6-4, 94178-3 #### [facility] ([id number]) [address], [address] [place] [address] Monocytes (Bld) [#/Vol] 0.7 10*3/uL Normal 0-0.9 [facility] Comment on above: Performed By: #### C BCA, CMP, 2532-0, 3084-1, FEPR, 6-4, 03018-7 #### [facility] ([id number]) [address], [address] [place] [address] Monocytes/100 WBC (Bld) 6.7 % Normal [facility] Comment on above: Performed By: #### C BCA, CMP, 2532-0, 3084-1, FEPR, 6-4, 87102-3 #### [facility] ([id number]) [address], [address] [place] [address] Neutrophils/100 WBC (Bld) 74.1 % Normal [facility] Comment on above: Performed By: #### C BCA, CMP, 2532-0, 3084-1, FEPR, 2276-4, 64167-1 #### [facility] ([id number]) [address], [address] [place] [address] Platelet mean volume (Bld) [Entitic vol] 9.2 fL Normal 7-12 [facility] Comment on above: Performed By: #### C BCA, CMP, 2532-0, 3084-1, FEPR, 2276-4, 89241-7 #### [facility] ([id number]) [address], [address] [address] Platelets (Bld) [#/Vol] 177 10*3/uL Normal 150-450 [facility] Comment on above: Performed By: #### C BCA, CMP, 2532-0, 3084-1, FEPR, 2276-4, 48644-6 #### [facility] ([id number]) [address], [address] [place] [address] RBC COUNT 3.13 X10E12/L Low 3.80-5.20 [facility] Comment on above: Performed By: #### C BCA, CMP, 2532-0, 3084-1, FEPR, 2276-4, 06417-6 #### [facility] ([id number]) [address] [address] WBC (Bld) [#/Vol] 10.2 10*3/uL Normal 4.0-11.0 [facility] Comment on above: Performed By: #### C BCA, CMP, 2532-0, 3084-1, FEPR, 2276-4, 53604-7 #### [facility] ([id number]) [address], [address] [place] [address] COMPREHENSIVE METABOLIC PANE Vinay 01-13-2024 Albumin [Mass/Vol] 2.6 g/dL Low 3.2-5.3 [facility] Comment on above: Performed By: #### C BCA, CMP, 2532-0, 3084-1, FEPR, 2276-4, 83854-2 #### [facility] ([id number]) [address], [address] [place] [address] ALP [Catalytic activity/Vol] 133 U/L High 39-130 [facility] Comment on above: Performed By: #### C BCA, CMP, 2532-0, 3084-1, FEPR, 2276-4, 91631-3 #### [facility] ([id number]) [address], [address] [place] [address] ALT [Catalytic activity/Vol] 7 U/L Normal 0-31 [facility] Comment on above: Performed By: #### C BCA, CMP, 2532-0, 3084-1, FEPR, 2276-4, 92025-9 #### [facility] ([id number]) [address], [address] [place] [address] Anion gap [Moles/Vol] 8 mmol/L Normal 5-15 [facility] Comment on above: Performed By: #### C BCA, CMP, 2532-0, 3084-1, FEPR, 2276-4, 00412-1 #### [facility] ([id number]) [address], [address] [place] [address] AST [Catalytic activity/Vol] 16 U/L Normal 0-41 [facility] Comment on above: Performed By: #### C BCA, CMP, 2532-0, 3084-1, FEPR, 2276-4, 98958-7 #### [facility] ([id number]) [address], [address] [place] [address] Bilirubin [Mass/Vol] 0.2 mg/dL Low 0.3-1.2 [facility] Comment on above: Performed By: #### C BCA, CMP, 2532-0, 3084-1, FEPR, 2276-4, 77523-7 #### [facility] ([id number]) [address], [facility] [address] [place] [address] Calcium [Mass/Vol] 6.2 mg/dL Critically low 8.5-10.5 [facility] Comment on above: Performed By: #### C BCA, CMP, 2532-0, 3084-1, FEPR, 2276-4, 98597-8 #### [facility] ([id number]) [address], [facility] [address] [place] [address] Chloride [Moles/Vol] 100 mmol/L Normal 98-109 [facility] Comment on above: Performed By: #### C BCA, CMP, 2532-0, 3084-1, FEPR, 2276-4, 39242-6 #### [facility] ([id number]) [address], [address] [place] [address] CO2 [Moles/Vol] 24 mmol/L Normal 22-32 [facility] Comment on above: Performed By: #### C BCA, CMP, 2532-0, 3084-1, FEPR, 2276-4, 99248-6 #### [facility] ([id number]) [address], [facility] [address] [place] [address] Creatinine [Mass/Vol] 0.64 mg/dL Normal 0.40-1.00 [facility] Comment on above: Result Comment: METH OD TRACEABLE TO IDMS STANDARD Performed By: #### C BCA, CMP, 2532-0, 3084-1, FEPR, 2276-4, 23249-2 #### [facility] ([id number]) [address], [address] [place] [address] eGFR (CKD-EPI) NON-RACE DEPENDENT >90 Normal >59 [facility] Comment on above: Result Comment: Reported eGFR is based on the CKD-EPI 2021 equation that does not use a race coefficient. Performed By: #### C BCA, CMP, 2532-0, 3084-1, FEPR, 2276-4, 60427-2 #### [facility] ([id number]) [address], [address] [place] [address] Glucose [Mass/Vol] 75 mg/dL Normal 65-99 [facility] Comment on above: Performed By: #### C BCA, CMP, 2532-0, 3084-1, FEPR, 2276-4, 13728-1 #### [facility] ([id number]) [address], [address] [place] [address] Potassium [Moles/Vol] 4.3 mmol/L Normal 3.5-5.0 [facility] Comment on above: Performed By: #### C BCA, CMP, 2532-0, 3084-1, FEPR, 6-4, 48939-9 #### [facility] ([id number]) [address], [address] [place] [address] Protein [Mass/Vol] 5.2 g/dL Low 6.0-8.0 [facility] Comment on above: Performed By: #### C BCA, CMP, 2532-0, 3084-1, FEPR, 6-4, 25194-1 #### [facility] ([id number]) [address], [address] [place] [address] Sodium [Moles/Vol] 132 mmol/L Low 134-146 [facility] Comment on above: Performed By: #### C BCA, CMP, 2532-0, 3084-1, FEPR, 2276-4, 10845-2 #### [facility] ([id number]) [address], [address] [place] [address] Urea nitrogen [Mass/Vol] 9 mg/dL Normal 5-23 [facility] Comment on above: Performed By: #### C BCA, CMP, 2532-0, 3084-1, FEPR, 2276-4, 84736-7 #### [facility] ([id number]) [address], [address] [place] [address] CBC AND AUTO DIFFon 01-12-20 24 ABSOLUTE BASOPHIL 0.0 X10E9/L Normal 0.0-0.2 [facility] Comment on above: Performed By: #### C BCA, CMP, 2532-0, 3084-1, FEPR, 6-4, 22793-3 #### [facility] ([id number]) [address], [address] [place] [address] ABSOLUTE NEUTROPHIL 12.4 X10E9/L High 1.5-6.6 [facility] Comment on above: Performed By: #### C BCA, CMP, 2532-0, 4-1, FEPR, 6-4, 01547-2 #### [facility] ([id number]) [address], [address] [place] [address] Basophils/100 WBC (Bld) 0.2 % Normal [facility] Comment on above: Performed By: #### C BCA, CMP, 2532-0, 3084-1, FEPR, 6-4, 45138-5 #### [facility] ([id number]) [address], [address] [place] [address] Eosinophils (Bld) [#/Vol] 0.0 10*3/uL Normal 0.0-0.4 [facility] Comment on above: Performed By: #### C BCA, CMP, 2532-0, 3084-1, FEPR, 2276-4, 18306-3 #### [facility] ([id number]) [address], [address] [place] [address] Eosinophils/100 WBC (Bld) 0.1 % Normal [facility] Comment on above: Performed By: #### C BCA, CMP, 2532-0, 3084-1, FEPR, 6-4, 37780-6 #### [facility] ([id number]) [address], [facility] [address] [place] [address] Erythrocyte distribution width (RBC) [Ratio] 15.5 % High 11.5-15.0 [facility] Comment on above: Performed By: #### C BCA, CMP, 2532-0, 3084-1, FEPR, 6-4, 81969-9 #### [facility] ([id number]) [address] [address] [place] [address] Hematocrit (Bld) [Volume fraction] 25.6 % Low 35-47 [facility] Comment on above: Performed By: #### C BCA, CMP, 2532-0, 4-1, FEPR, 2275-4, 34144-7 #### [facility] ([id number]) [address] [address] Hemoglobin (Bld) [Mass/Vol] 8.5 g/dL Low 11.7-15.5 [facility] Comment on above: Performed By: #### C BCA, CMP, 2532-0, 4-1, FEPR, 2275-4, 71387-5 #### [facility] ([id number]) [address] [address] Lymphocytes (Bld) [#/Vol] 1.0 10*3/uL Normal 1.0-3.5 [facility] Comment on above: Performed By: #### C BCA, CMP, 2532-0, 3084-1, FEPR, 6-4, 08257-9 #### [facility] ([id number]) [address] [address] Lymphocytes/100 WBC (Bld) 6.9 % Normal [facility] Comment on above: Performed By: #### C BCA, CMP, 2532-0, 3084-1, FEPR, 6-4, 53853-2 #### [facility] ([id number]) [address], [address] [place] [address] MCH (RBC) [Entitic mass] 24.4 pg Low 27-34 [facility] Comment on above: Performed By: #### C BCA, CMP, 2532-0, 3084-1, FEPR, 6-4, 61935-0 #### [facility] ([id number]) [address], [address] [place] [address] MCHC (RBC) [Mass/Vol] 33.2 g/dL Normal 32-36 [facility] Comment on above: Performed By: #### C BCA, CMP, 2532-0, 3084-1, FEPR, 6-4, 44382-1 #### [facility] ([id number]) [address], [address] [place] [address] MCV (RBC) [Entitic vol] 73 fL Low 80-100 [facility] Comment on above: Performed By: #### C BCA, CMP, 2532-0, 3084-1, FEPR, 2275-4, 23528-6 #### [facility] ([id number]) [address], [address] [place] [address] Monocytes (Bld) [#/Vol] 0.7 10*3/uL Normal 0-0.9 [facility] Comment on above: Performed By: #### C BCA, CMP, 2532-0, 3084-1, FEPR, 6-4, 11522-0 #### [facility] ([id number]) [address] [address] [place] [address] Monocytes/100 WBC (Bld) 5.0 % Normal [facility] Comment on above: Performed By: #### C BCA, CMP, 2532-0, 3084-1, FEPR, 6-4, 60757-0 #### [facility] ([id number]) [address], [address] [place] [address] Neutrophils/100 WBC (Bld) 87.8 % Normal [facility] Comment on above: Performed By: #### C BCA, CMP, 2532-0, 3084-1, FEPR, 2276-4, 40882-5 #### [facility] ([id number]) [address], [address] [place] [address] Platelet mean volume (Bld) [Entitic vol] 9.3 fL Normal 7-12 [facility] Comment on above: Performed By: #### C BCA, CMP, 2532-0, 3084-1, FEPR, 2276-4, 54867-5 #### [facility] ([id number]) [address], [address] [place] [address] Platelets (Bld) [#/Vol] 192 10*3/uL Normal 150-450 [facility] Comment on above: Performed By: #### C BCA, CMP, 2532-0, 3084-1, FEPR, 2276-4, 33517-9 #### [facility] ([id number]) [address], [facility] [address] [place] [address] RBC COUNT 3.49 X10E12/L Low 3.80-5.20 [facility] Comment on above: Performed By: #### C BCA, CMP, 2532-0, 3084-1, FEPR, 2276-4, 51929-8 #### [facility] ([id number]) [address] [address] [place] [address] WBC (Bld) [#/Vol] 14.1 10*3/uL High 4.0-11.0 [facility] Comment on above: Performed By: #### C BCA, CMP, 2532-0, 3084-1, FEPR, 2276-4, 22040-6 #### [facility] ([id number]) [address], [address] [place] [address] ABSOLUTE BASOPHIL 0.0 X10E9/L Normal 0.0-0.2 [facility] Comment on above: Performed By: #### C BCA, CMP, 2532-0, 3084-1, FEPR, 2276-4, 19456-2 #### [facility] ([id number]) [address], [address] [place] [address] ABSOLUTE NEUTROPHIL 8.2 X10E9/L High 1.5-6.6 [facility] Comment on above: Performed By: #### C BCA, CMP, 2532-0, 3084-1, FEPR, 6-4, 10697-8 #### [facility] ([id number]) [address], [address] [place] [address] Basophils/100 WBC (Bld) 0.3 % Normal [facility] Comment on above: Performed By: #### C BCA, CMP, 2532-0, 3084-1, FEPR, 6-4, 04970-5 #### [facility] ([id number]) [address], [address] [place] [address] Eosinophils (Bld) [#/Vol] 0.0 10*3/uL Normal 0.0-0.4 [facility] Comment on above: Performed By: #### C BCA, CMP, 2532-0, 3084-1, FEPR, 2276-4, 78296-6 #### [facility] ([id number]) [address], [address] [place] [address] Eosinophils/100 WBC (Bld) 0.2 % Normal [facility] Comment on above: Performed By: #### C BCA, CMP, 2532-0, 3084-1, FEPR, 2276-4, 49223-9 #### [facility] ([id number]) [address] [address] [place] [address] Erythrocyte distribution width (RBC) [Ratio] 15.4 % High 11.5-15.0 [facility] Comment on above: Performed By: #### C BCA, CMP, 2532-0, 3084-1, FEPR, 2276-4, 28583-3 #### [facility] ([id number]) [address] [address] [place] [address] Hematocrit (Bld) [Volume fraction] 24.4 % Low 35-47 [facility] Comment on above: Performed By: #### C BCA, CMP, 2532-0, 3084-1, FEPR, 6-4, 89387-7 #### [facility] ([id number]) [address] [address] Hemoglobin (Bld) [Mass/Vol] 8.1 g/dL Low 11.7-15.5 [facility] Comment on above: Performed By: #### C BCA, CMP, 2532-0, 3084-1, FEPR, 6-4, 62614-8 #### [facility] ([id number]) [address] [address] Lymphocytes (Bld) [#/Vol] 1.2 10*3/uL Normal 1.0-3.5 [facility] Comment on above: Performed By: #### C BCA, CMP, 2532-0, 3084-1, FEPR, 2276-4, 05554-3 #### [facility] ([id number]) [address] [address] Lymphocytes/100 WBC (Bld) 11.9 % Normal [facility] Comment on above: Performed By: #### C BCA, CMP, 2532-0, 3084-1, FEPR, 2276-4, 22925-2 #### [facility] ([id number]) [address] [address] MCH (RBC) [Entitic mass] 24.7 pg Low 27-34 [facility] Comment on above: Performed By: #### C BCA, CMP, 2532-0, 3084-1, FEPR, 2276-4, 15640-9 #### [facility] ([id number]) [address], [facility] [address] [place] [address] MCHC (RBC) [Mass/Vol] 33.3 g/dL Normal 32-36 [facility] Comment on above: Performed By: #### C BCA, CMP, 2532-0, 3084-1, FEPR, 6-4, 04161-3 #### [facility] ([id number]) [address], [facility] [address] [place] [address] MCV (RBC) [Entitic vol] 74 fL Low 80-100 [facility] Comment on above: Performed By: #### C BCA, CMP, 2532-0, 3084-1, FEPR, 6-4, 13579-1 #### [facility] ([id number]) [address], [facility] [address] [place] [address] Monocytes (Bld) [#/Vol] 0.4 10*3/uL Normal 0-0.9 [facility] Comment on above: Performed By: #### C BCA, CMP, 2532-0, 3084-1, FEPR, 6-4, 49151-9 #### [facility] ([id number]) [address], [facility] [address] [place] [address] Monocytes/100 WBC (Bld) 3.7 % Normal [facility] Comment on above: Performed By: #### C BCA, CMP, 2532-0, 3084-1, FEPR, 2276-4, 28979-0 #### [facility] ([id number]) [address], [address] [place] [address] Neutrophils/100 WBC (Bld) 83.9 % Normal [facility] Comment on above: Performed By: #### C BCA, CMP, 2532-0, 3084-1, FEPR, 2276-4, 55232-2 #### [facility] ([id number]) [address], [address] [place] [address] Platelet mean volume (Bld) [Entitic vol] 9.4 fL Normal 7-12 [facility] Comment on above: Performed By: #### C BCA, CMP, 2532-0, 3084-1, FEPR, 2276-4, 85138-7 #### [facility] ([id number]) [address] [address] [place] [address] Platelets (Bld) [#/Vol] 170 10*3/uL Normal 150-450 [facility] Comment on above: Performed By: #### C BCA, CMP, 2532-0, 3084-1, FEPR, 6-4, 70394-6 #### [facility] ([id number]) [address], [facility] [address] [place] [address] RBC COUNT 3.29 X10E12/L Low 3.80-5.20 [facility] Comment on above: Performed By: #### C BCA, CMP, 2532-0, 3084-1, FEPR, 2276-4, 21387-3 #### [facility] ([id number]) [address], [address] [place] [address] WBC (Bld) [#/Vol] 9.8 10*3/uL Normal 4.0-11.0 [facility] Comment on above: Performed By: #### C BCA, CMP, 2532-0, 3084-1, FEPR, 2276-4, 42414-0 #### [facility] ([id number]) [address], [address] [place] [address] ABSOLUTE BASOPHIL 0.0 X10E9/L Normal 0.0-0.2 [facility] Comment on above: Performed By: #### C BCA, CMP, 2532-0, 3084-1, FEPR, 6-4, 78627-1 #### [facility] ([id number]) [address], [address] [place] [address] ABSOLUTE NEUTROPHIL 4.0 X10E9/L Normal 1.5-6.6 [facility] Comment on above: Performed By: #### C BCA, CMP, 2532-0, 3084-1, FEPR, 6-4, 00435-7 #### [facility] ([id number]) [address], [address] [place] [address] Basophils/100 WBC (Bld) 0.5 % Normal [facility] Comment on above: Performed By: #### C BCA, CMP, 2532-0, 3084-1, FEPR, 6-4, 19760-3 #### [facility] ([id number]) [address], [address] [place] [address] Eosinophils (Bld) [#/Vol] 0.0 10*3/uL Normal 0.0-0.4 [facility] Comment on above: Performed By: #### C BCA, CMP, 2532-0, 3084-1, FEPR, 6-4, 96031-1 #### [facility] ([id number]) [address], [address] [place] [address] Eosinophils/100 WBC (Bld) 0.2 % Normal [facility] Comment on above: Performed By: #### C BCA, CMP, 2532-0, 3084-1, FEPR, 6-4, 84059-4 #### [facility] ([id number]) [address], [address] [place] [address] Erythrocyte distribution width (RBC) [Ratio] 15.9 % High 11.5-15.0 [facility] Comment on above: Performed By: #### C BCA, CMP, 2532-0, 3084-1, FEPR, 6-4, 58119-9 #### [facility] ([id number]) [address], [address] [place] [address] Hematocrit (Bld) [Volume fraction] 25.6 % Low 35-47 [facility] Comment on above: Performed By: #### C BCA, CMP, 2532-0, 3084-1, FEPR, 6-4, 27019-0 #### [facility] ([id number]) [address], [facility] [address] [place] [address] Hemoglobin (Bld) [Mass/Vol] 8.7 g/dL Low 11.7-15.5 [facility] Comment on above: Performed By: #### C BCA, CMP, 2532-0, 3084-1, FEPR, 6-4, 23909-7 #### [facility] ([id number]) [address], [facility] [address] [place] [address] Lymphocytes (Bld) [#/Vol] 1.8 10*3/uL Normal 1.0-3.5 [facility] Comment on above: Performed By: #### C BCA, CMP, 2532-0, 3084-1, FEPR, 6-4, 21662-8 #### [facility] ([id number]) [address], [facility] [address] [place] [address] Lymphocytes/100 WBC (Bld) 28.5 % Normal [facility] Comment on above: Performed By: #### C BCA, CMP, 2532-0, 3084-1, FEPR, 6-4, 44973-1 #### [facility] ([id number]) [address], [facility] [address] [place] [address] MCH (RBC) [Entitic mass] 25.4 pg Low 27-34 [facility] Comment on above: Performed By: #### C BCA, CMP, 2532-0, 3084-1, FEPR, 2276-4, 40223-3 #### [facility] ([id number]) [address], [address] [place] [address] MCHC (RBC) [Mass/Vol] 33.9 g/dL Normal 32-36 [facility] Comment on above: Performed By: #### C BCA, CMP, 2532-0, 3084-1, FEPR, 2276-4, 63089-3 #### [facility] ([id number]) [address], [facility] [address] [place] [address] MCV (RBC) [Entitic vol] 75 fL Low 80-100 [facility] Comment on above: Performed By: #### C BCA, CMP, 2532-0, 3084-1, FEPR, 6-4, 52924-4 #### [facility] ([id number]) [address], [address] [address] Monocytes (Bld) [#/Vol] 0.4 10*3/uL Normal 0-0.9 [facility] Comment on above: Performed By: #### C BCA, CMP, 2532-0, 3084-1, FEPR, 6-4, 84874-0 #### [facility] ([id number]) [address], [facility] [address] [place] [address] Monocytes/100 WBC (Bld) 6.1 % Normal [facility] Comment on above: Performed By: #### C BCA, CMP, 2532-0, 3084-1, FEPR, 2276-4, 56410-0 #### [facility] ([id number]) [address], [address] [address] Neutrophils/100 WBC (Bld) 64.7 % Normal [facility] Comment on above: Performed By: #### C BCA, CMP, 2532-0, 3084-1, FEPR, 2276-4, 29629-8 #### [facility] ([id number]) [address], [facility] [address] [place] [address] Platelet mean volume (Bld) [Entitic vol] 9.4 fL Normal 7-12 [facility] Comment on above: Performed By: #### C BCA, CMP, 2532-0, 3084-1, FEPR, 2276-4, 55711-5 #### [facility] ([id number]) [address], [address] [address] Platelets (Bld) [#/Vol] 155 10*3/uL Normal 150-450 [facility] Comment on above: Performed By: #### C BCA, CMP, 2532-0, 3084-1, FEPR, 2276-4, 35917-9 #### [facility] ([id number]) [address], [address] [address] RBC COUNT 3.42 X10E12/L Low 3.80-5.20 [facility] Comment on above: Performed By: #### C BCA, CMP, 2532-0, 3084-1, FEPR, 2276-4, 95124-8 #### [facility] ([id number]) [address] [address] WBC (Bld) [#/Vol] 6.2 10*3/uL Normal 4.0-11.0 [facility] Comment on above: Performed By: #### C BCA, CMP, 2532-0, 3084-1, FEPR, 2276-4, 93106-3 #### [facility] ([id number]) [address], [facility] [address] [place] [address] COMPREHENSIVE METABOLIC PANE Vinay 01-12-2024 Albumin [Mass/Vol] 2.8 g/dL Low 3.2-5.3 [facility] Comment on above: Performed By: #### C BCA, CMP, 2532-0, 3084-1, FEPR, 2276-4, 54771-7 #### [facility] ([id number]) [address], [address] [place] [address] ALP [Catalytic activity/Vol] 152 U/L High 39-130 [facility] Comment on above: Performed By: #### C BCA, CMP, 2532-0, 3084-1, FEPR, 2276-4, 45803-6 #### [facility] ([id number]) [address], [address] [place] [address] ALT [Catalytic activity/Vol] 10 U/L Normal 0-31 [facility] Comment on above: Performed By: #### C BCA, CMP, 2532-0, 3084-1, FEPR, 2276-4, 49840-0 #### [facility] ([id number]) [address], [address] [place] [address] Anion gap [Moles/Vol] 7 mmol/L Normal 5-15 [facility] Comment on above: Performed By: #### C BCA, CMP, 2532-0, 3084-1, FEPR, 2276-4, 36238-4 #### [facility] ([id number]) [address], [address] [place] [address] AST [Catalytic activity/Vol] 18 U/L Normal 0-41 [facility] Comment on above: Performed By: #### C BCA, CMP, 2532-0, 3084-1, FEPR, 2276-4, 39213-1 #### [facility] ([id number]) [address], [address] [place] [address] Bilirubin [Mass/Vol] 0.3 mg/dL Normal 0.3-1.2 [facility] Comment on above: Performed By: #### C BCA, CMP, 2532-0, 3084-1, FEPR, 2276-4, 62481-4 #### [facility] ([id number]) [address], [address] [place] [address] Calcium [Mass/Vol] 6.6 mg/dL Critically low 8.5-10.5 [facility] Comment on above: Performed By: #### C BCA, CMP, 2532-0, 3084-1, FEPR, 2276-4, 59498-5 #### [facility] ([id number]) [address], [address] [place] [address] Chloride [Moles/Vol] 104 mmol/L Normal 98-109 [facility] Comment on above: Performed By: #### C BCA, CMP, 2532-0, 3084-1, FEPR, 2276-4, 64615-1 #### [facility] ([id number]) [address], [address] [place] [address] CO2 [Moles/Vol] 23 mmol/L Normal 22-32 [facility] Comment on above: Performed By: #### C BCA, CMP, 2532-0, 3084-1, FEPR, 2276-4, 55380-1 #### [facility] ([id number]) [address], [address] [place] [address] Creatinine [Mass/Vol] 0.59 mg/dL Normal 0.40-1.00 [facility] Comment on above: Result Comment: METH OD TRACEABLE TO IDMS STANDARD Performed By: #### C BCA, CMP, 2532-0, 3084-1, FEPR, 2276-4, 92976-2 #### [facility] ([id number]) [address], [address] [place] [address] eGFR (CKD-EPI) NON-RACE DEPENDENT >90 Normal >59 [facility] Comment on above: Result Comment: Reported eGFR is based on the CKD-EPI 2020 equation that does not use a race coefficient. Performed By: #### C BCA, CMP, 2532-0, 3084-1, FEPR, 2276-4, 89046-3 #### [facility] ([id number]) [address], [address] [place] [address] Glucose [Mass/Vol] 100 mg/dL High 65-99 [facility] Comment on above: Performed By: #### C BCA, CMP, 2532-0, 3084-1, FEPR, 2276-4, 25295-4 #### [facility] ([id number]) [address], [address] [place] [address] Potassium [Moles/Vol] 4.3 mmol/L Normal 3.5-5.0 [facility] Comment on above: Performed By: #### C BCA, CMP, 2532-0, 3084-1, FEPR, 2276-4, 04678-9 #### [facility] ([id number]) [address], [address] [place] [address] Protein [Mass/Vol] 5.4 g/dL Low 6.0-8.0 [facility] Comment on above: Performed By: #### C BCA, CMP, 2532-0, 3084-1, FEPR, 2276-4, 52147-3 #### [facility] ([id number]) [address], [address] [place] [address] Sodium [Moles/Vol] 134 mmol/L Normal 134-146 [facility] Comment on above: Performed By: #### C BCA, CMP, 2532-0, 3084-1, FEPR, 2276-4, 45321-2 #### [facility] ([id number]) [address], [address] [place] [address] Urea nitrogen [Mass/Vol] 9 mg/dL Normal 5-23 [facility] Comment on above: Performed By: #### C BCA, CMP, 2532-0, 3084-1, FEPR, 2276-4, 61530-7 #### [facility] ([id number]) [address], [address] [place] [address] Albumin [Mass/Vol] 2.8 g/dL Low 3.2-5.3 [facility] Comment on above: Performed By: #### C BCA, CMP, 2532-0, 3084-1, FEPR, 2276-4, 51798-2 #### [facility] ([id number]) [address], [address] [place] [address] ALP [Catalytic activity/Vol] 149 U/L High 39-130 [facility] Comment on above: Performed By: #### C BCA, CMP, 2532-0, 3084-1, FEPR, 2276-4, 77893-8 #### [facility] ([id number]) [address], [address] [place] [address] ALT [Catalytic activity/Vol] 10 U/L Normal 0-31 [facility] Comment on above: Performed By: #### C BCA, CMP, 2532-0, 3084-1, FEPR, 2276-4, 29262-9 #### [facility] ([id number]) [address], [address] [place] [address] Anion gap [Moles/Vol] 8 mmol/L Normal 5-15 [facility] Comment on above: Performed By: #### C BCA, CMP, 2532-0, 3084-1, FEPR, 2276-4, 20528-7 #### [facility] ([id number]) [address], [address] [place] [address] AST [Catalytic activity/Vol] 15 U/L Normal 0-41 [facility] Comment on above: Performed By: #### C BCA, CMP, 2532-0, 3084-1, FEPR, 2276-4, 40459-3 #### [facility] ([id number]) [address], [address] [place] [address] Bilirubin [Mass/Vol] 0.2 mg/dL Low 0.3-1.2 [facility] Comment on above: Performed By: #### C BCA, CMP, 2532-0, 3084-1, FEPR, 2276-4, 67512-9 #### [facility] ([id number]) [address], [address] [place] [address] Calcium [Mass/Vol] 7.1 mg/dL Low 8.5-10.5 [facility] Comment on above: Performed By: #### C BCA, CMP, 2532-0, 3084-1, FEPR, 2276-4, 10344-8 #### [facility] ([id number]) [address], [address] [place] [address] Chloride [Moles/Vol] 107 mmol/L Normal 98-109 [facility] Comment on above: Performed By: #### C BCA, CMP, 2532-0, 3084-1, FEPR, 2276-4, 89866-7 #### [facility] ([id number]) [address] [address] CO2 [Moles/Vol] 23 mmol/L Normal 22-32 [facility] Comment on above: Performed By: #### C BCA, CMP, 2532-0, 3084-1, FEPR, 2276-4, 20632-5 #### [facility] ([id number]) [address], [address] [place] [address] Creatinine [Mass/Vol] 0.60 mg/dL Normal 0.40-1.00 [facility] Comment on above: Result Comment: METH OD TRACEABLE TO IDMS STANDARD Performed By: #### C BCA, CMP, 2532-0, 3084-1, FEPR, 2276-4, 79116-5 #### [facility] ([id number]) [address], [address] [place] [address] eGFR (CKD-EPI) NON-RACE DEPENDENT >90 Normal >59 [facility] Comment on above: Result Comment: Reported eGFR is based on the CKD-EPI 2020 equation that does not use a race coefficient. Performed By: #### C BCA, CMP, 2532-0, 3084-1, FEPR, 2276-4, 37979-8 #### [facility] ([id number]) [address], [address] [place] [address] Glucose [Mass/Vol] 80 mg/dL Normal 65-99 [facility] Comment on above: Performed By: #### C BCA, CMP, 2532-0, 3084-1, FEPR, 2276-4, 18729-9 #### [facility] ([id number]) [address], [address] [place] [address] Potassium [Moles/Vol] 4.1 mmol/L Normal 3.5-5.0 [facility] Comment on above: Performed By: #### C BCA, CMP, 2532-0, 3084-1, FEPR, 2276-4, 75801-2 #### [facility] ([id number]) [address], [address] [place] [address] Protein [Mass/Vol] 5.5 g/dL Low 6.0-8.0 [facility] Comment on above: Performed By: #### C BCA, CMP, 2532-0, 3084-1, FEPR, 2276-4, 57379-9 #### [facility] ([id number]) [address], [address] [place] [address] Sodium [Moles/Vol] 138 mmol/L Normal 134-146 [facility] Comment on above: Performed By: #### C BCA, CMP, 2532-0, 3084-1, FEPR, 2276-4, 50469-5 #### [facility] ([id number]) [address], [address] [place] [address] Urea nitrogen [Mass/Vol] 8 mg/dL Normal 5-23 [facility] Comment on above: Performed By: #### C BCA, CMP, 2532-0, 3084-1, FEPR, 2276-4, 42817-5 #### [facility] ([id number]) [address], [address] [place] [address] CORD ARTERIAL GASon 01-12-20 24 SYLVIA'S TEST Normal [facility] Comment on above: Performed By: #### C BCA, CMP, 2532-0, 3084-1, FEPR, 2276-4, 28450-7 #### [facility] ([id number]) [address], [address] [place] [address] BASE,DEFICIT 4.0 MMOL/L High 0.0-2.0 [facility] Comment on above: Performed By: #### C BCA, CMP, 2532-0, 3084-1, FEPR, 6-4, 88239-1 #### [facility] ([id number]) [address], [address] [place] [address] HCO3 (Bld) [Moles/Vol] 25.8 mmol/L Normal 22-26 [facility] Comment on above: Performed By: #### C BCA, CMP, 2532-0, 3084-1, FEPR, 6-4, 70025-7 #### [facility] ([id number]) [address], [address] [place] [address] INSP. O2 CONC. 21 % Normal [facility] Comment on above: Performed By: #### C BCA, CMP, 2532-0, 3084-1, FEPR, 2276-4, 61549-4 #### [facility] ([id number]) [address], [address] [place] [address] Oxygen (Bld) [Partial pressure] 10 mm[Hg] Low 12-24 [facility] Comment on above: Performed By: #### C BCA, CMP, 2532-0, 3084-1, FEPR, 2276-4, 38979-3 #### [facility] ([id number]) [address], [address] [place] [address] Oxygen saturation in Blood 7.0 % Low 7.1-39.5 [facility] Comment on above: Performed By: #### C BCA, CMP, 2532-0, 3084-1, FEPR, 2276-4, 84663-0 #### [facility] ([id number]) [address], [address] [place] [address] OXYGEN SOURCE [facility] Comment on above: Performed By: #### C BCA, CMP, 2532-0, 3084-1, FEPR, 2276-4, 32403-0 #### [facility] ([id number]) [address], [address] [place] [address] PCO2 67.1 MMHG High 40.8-57.6 [facility] Comment on above: Performed By: #### C BCA, CMP, 2532-0, 3084-1, FEPR, 2276-4, 15750-1 #### [facility] ([id number]) [address], [address] [place] [address] pH (Bld) 7.192 [pH] Low 7.24-7.30 [facility] Comment on above: Performed By: #### C BCA, CMP, 2532-0, 3084-1, FEPR, 2276-4, 76228-0 #### [facility] ([id number]) [address], [address] [place] [address] SAMPLE SITE [employer] Normal [facility] Comment on above: Performed By: #### C BCA, CMP, 2532-0, 3084-1, FEPR, 2276-4, 84804-0 #### [facility] ([id number]) [address], [address] [place] [address] SAMPLE TYPE UMBILICALCORD Normal [facility] Comment on above: Performed By: #### C BCA, CMP, 2532-0, 3084-1, FEPR, 2276-4, 16818-6 #### [facility] ([id number]) [address], [address] [place] [address] CORD VENOUS GASon 01-12-2024 SYLVIA'S TEST Normal [facility] Comment on above: Performed By: #### C BCA, CMP, 2532-0, 3084-1, FEPR, 6-4, 35727-8 #### [facility] ([id number]) [address], [address] [place] [address] BASE,DEFICIT 4.0 MMOL/L High 0.0-2.0 [facility] Comment on above: Performed By: #### C BCA, CMP, 2532-0, 3084-1, FEPR, 6-4, 37527-9 #### [facility] ([id number]) [address], [address] [place] [address] HCO3 (Bld) [Moles/Vol] 21.9 mmol/L Normal 20.0-24.0 [facility] Comment on above: Performed By: #### C BCA, CMP, 2532-0, 3084-1, FEPR, 6-4, 85107-4 #### [facility] ([id number]) [address], [address] [place] [address] INSP. O2 CONC. 21 % Normal [facility] Comment on above: Performed By: #### C BCA, CMP, 2532-0, 3084-1, FEPR, 2276-4, 32126-8 #### [facility] ([id number]) [address], [address] [place] [address] Oxygen (Bld) [Partial pressure] 34 mm[Hg] Normal 22-35 [facility] Comment on above: Performed By: #### C BCA, CMP, 2532-0, 3084-1, FEPR, 2276-4, 35471-3 #### [facility] ([id number]) [address], [address] [place] [address] Oxygen saturation in Blood 61.0 % Normal 32.5-66.3 [facility] Comment on above: Performed By: #### C BCA, CMP, 2532-0, 3084-1, FEPR, 2276-4, 41744-4 #### [facility] ([id number]) [address], [address] [place] [address] OXYGEN SOURCE Room[employer] Normal [facility] Comment on above: Performed By: #### C BCA, CMP, 2532-0, 3084-1, FEPR, 2276-4, 55324-2 #### [facility] ([id number]) [address], [address] [place] [address] PCO2 42.7 MMHG Normal 32.6-43.8 [facility] Comment on above: Performed By: #### C BCA, CMP, 2532-0, 3084-1, FEPR, 2276-4, 64299-4 #### [facility] ([id number]) [address], [address] [place] [address] pH (Bld) 7.318 [pH] Normal 7.25-7.37 [facility] Comment on above: Performed By: #### C BCA, CMP, 2532-0, 3084-1, FEPR, 2276-4, 08620-6 #### [facility] ([id number]) [address], [address] [place] [address] SAMPLE SITE VenCord Normal [facility] Comment on above: Performed By: #### C BCA, CMP, 2532-0, 3084-1, FEPR, 2276-4, 47398-4 #### [facility] ([id number]) [address], [address] [place] [address] SAMPLE TYPE UMBILICALCORD Normal [facility] Comment on above: Performed By: #### C BCA, CMP, 2532-0, 3084-1, FEPR, 2276-4, 68788-2 #### [facility] ([id number]) [address], [address] [place] [address] STREP B PCR VAG/RECTon 01-11 S. agalactiae Org specific cx Ql (Vag+Rectum) Negative Normal NEG [facility] Comment on above: Performed By: #### 7 2607-5 #### [facility] ([id number]) [address], [address] [place] [address] XR ABDOMEN AP 1 VWon 024 XR [...] Haro MD on 01/12/2024 10:35 AM Normal [facility] CBC AND AUTO DIFFon 01-11-20 24 Band form neutrophils/100 WBC (Bld) 2.0 % Normal [facility] Comment on above: Performed By: #### C BCA, CMP, 2532-0, 3084-1, FEPR, 6-4, 05271-0 #### [facility] ([id number]) [address], [address] [place] [address] Erythrocyte distribution width (RBC) [Ratio] 15.6 % High 11.5-15.0 [facility] Comment on above: Performed By: #### C BCA, CMP, 2532-0, 3084-1, FEPR, 6-4, 86211-0 #### [facility] ([id number]) [address], [address] [place] [address] Hematocrit (Bld) [Volume fraction] 27.9 % Low 35-47 [facility] Comment on above: Performed By: #### C BCA, CMP, 2532-0, 3084-1, FEPR, 6-4, 02340-6 #### [facility] ([id number]) [address], [address] [place] [address] Hemoglobin (Bld) [Mass/Vol] 9.3 g/dL Low 11.7-15.5 [facility] Comment on above: Performed By: #### C BCA, CMP, 2532-0, 4-1, FEPR, 6-4, 03343-1 #### [facility] ([id number]) [address], [address] [place] [address] Lymphocytes (Bld) [#/Vol] 1.9 10*3/uL Normal 1.0-3.5 [facility] Comment on above: Performed By: #### C BCA, CMP, 2532-0, 3084-1, FEPR, 6-4, 56132-7 #### [facility] ([id number]) [address], [address] [place] [address] Lymphocytes/100 WBC (Bld) 24.0 % Normal [facility] Comment on above: Performed By: #### C BCA, CMP, 2532-0, 3084-1, FEPR, 6-4, 76652-1 #### [facility] ([id number]) [address], [address] [place] [address] MCH (RBC) [Entitic mass] 24.8 pg Low 27-34 [facility] Comment on above: Performed By: #### C BCA, CMP, 2532-0, 3084-1, FEPR, 2276-4, 92834-0 #### [facility] ([id number]) [address], [address] [place] [address] MCHC (RBC) [Mass/Vol] 33.4 g/dL Normal 32-36 [facility] Comment on above: Performed By: #### C BCA, CMP, 2532-0, 3084-1, FEPR, 6-4, 58502-3 #### [facility] ([id number]) [address], [address] [place] [address] MCV (RBC) [Entitic vol] 74 fL Low 80-100 [facility] Comment on above: Performed By: #### C BCA, CMP, 2532-0, 4-1, FEPR, 6-4, 36281-5 #### [facility] ([id number]) [address], [address] [place] [address] Metamyelocytes/100 WBC (Bld) 1.0 % Normal [facility] Comment on above: Performed By: #### C BCA, CMP, 2532-0, 3084-1, FEPR, 6-4, 10175-0 #### [facility] ([id number]) [address], [address] [place] [address] Monocytes (Bld) [#/Vol] 0.4 10*3/uL Normal 0-0.9 [facility] Comment on above: Performed By: #### C BCA, CMP, 2532-0, 3084-1, FEPR, 2276-4, 02083-9 #### [facility] ([id number]) [address], [address] [place] [address] Monocytes/100 WBC (Bld) 5.0 % Normal [facility] Comment on above: Performed By: #### C BCA, CMP, 2532-0, 3084-1, FEPR, 2276-4, 52824-1 #### [facility] ([id number]) [address] [address] [place] [address] Neutrophils (Bld) [#/Vol] 5.4 10*3/uL Normal 1.5-6.6 [facility] Comment on above: Performed By: #### C BCA, CMP, 2532-0, 3084-1, FEPR, 2276-4, 55075-1 #### [facility] ([id number]) [address], [address] [address] NUCLEATED RBC 2.0 /100 WBC High 0.0-1.0 [facility] Comment on above: Performed By: #### C BCA, CMP, 2532-0, 3084-1, FEPR, 2276-4, 35857-1 #### [facility] ([id number]) [address], [address] [address] Platelet mean volume (Bld) [Entitic vol] 9.6 fL Normal 7-12 [facility] Comment on above: Performed By: #### C BCA, CMP, 2532-0, 3084-1, FEPR, 2276-4, 47823-2 #### [facility] ([id number]) [address], [facility] [address] [place] [address] Platelets (Bld) [#/Vol] 186 10*3/uL Normal 150-450 [facility] Comment on above: Performed By: #### C BCA, CMP, 2532-0, 3084-1, FEPR, 2276-4, 82024-2 #### [facility] ([id number]) [address] [address] [place] [address] POLYCHROMASIA 1+ Abnormal NONE [facility] Comment on above: Performed By: #### C BCA, CMP, 2532-0, 3084-1, FEPR, 2276-4, 50610-7 #### [facility] ([id number]) [address], [address] [place] [address] RBC COUNT 3.75 X10E12/L Low 3.80-5.20 [facility] Comment on above: Performed By: #### C BCA, CMP, 2532-0, 3084-1, FEPR, 2276-4, 77317-9 #### [facility] ([id number]) [address], [address] [place] [address] SEG NEUTROPHIL 68.0 % Normal [facility] Comment on above: Performed By: #### C BCA, CMP, 2532-0, 3084-1, FEPR, 6-4, 22660-7 #### [facility] ([id number]) [address], [address] [place] [address] WBC (Bld) [#/Vol] 7.8 10*3/uL Normal 4.0-11.0 [facility] Comment on above: Performed By: #### C BCA, CMP, 2532-0, 3084-1, FEPR, 6-4, 01602-1 #### [facility] ([id number]) [address], [address] [place] [address] COMPREHENSIVE METABOLIC PANE Vinay 01-11-2024 Albumin [Mass/Vol] 3.2 g/dL Normal 3.2-5.3 [facility] Comment on above: Performed By: #### C BCA, CMP, 2532-0, 3084-1, FEPR, 2276-4, 18423-2 #### [facility] ([id number]) [address], [address] [place] [address] ALP [Catalytic activity/Vol] 169 U/L High 39-130 [facility] Comment on above: Performed By: #### C BCA, CMP, 2532-0, 3084-1, FEPR, 2276-4, 40213-5 #### [facility] ([id number]) [address], [address] [place] [address] ALT [Catalytic activity/Vol] 8 U/L Normal 0-31 [facility] Comment on above: Performed By: #### C BCA, CMP, 2532-0, 3084-1, FEPR, 2276-4, 54313-7 #### [facility] ([id number]) [address], [address] [place] [address] Anion gap [Moles/Vol] 12 mmol/L Normal 5-15 [facility] Comment on above: Performed By: #### C BCA, CMP, 2532-0, 3084-1, FEPR, 2276-4, 45956-6 #### [facility] ([id number]) [address], [address] [place] [address] AST [Catalytic activity/Vol] 14 U/L Normal 0-41 [facility] Comment on above: Performed By: #### C BCA, CMP, 2532-0, 3084-1, FEPR, 2276-4, 38152-2 #### [facility] ([id number]) [address], [address] [place] [address] Bilirubin [Mass/Vol] 0.2 mg/dL Low 0.3-1.2 [facility] Comment on above: Performed By: #### C BCA, CMP, 2532-0, 3084-1, FEPR, 2276-4, 83557-6 #### [facility] ([id number]) [address], [address] [place] [address] Calcium [Mass/Vol] 8.4 mg/dL Low 8.5-10.5 [facility] Comment on above: Performed By: #### C BCA, CMP, 2532-0, 3084-1, FEPR, 2276-4, 04230-2 #### [facility] ([id number]) [address], [address] [place] [address] Chloride [Moles/Vol] 111 mmol/L High 98-109 [facility] Comment on above: Performed By: #### C BCA, CMP, 2532-0, 3084-1, FEPR, 2276-4, 98108-0 #### [facility] ([id number]) [address], [address] [place] [address] CO2 [Moles/Vol] 19 mmol/L Low 22-32 [facility] Comment on above: Performed By: #### C BCA, CMP, 2532-0, 3084-1, FEPR, 2276-4, 45854-7 #### [facility] ([id number]) [address], [address] [place] [address] Creatinine [Mass/Vol] 0.57 mg/dL Normal 0.40-1.00 [facility] Comment on above: Result Comment: METH OD TRACEABLE TO IDMS STANDARD Performed By: #### C BCA, CMP, 2532-0, 3084-1, FEPR, 2276-4, 57150-4 #### [facility] ([id number]) [address], [address] [place] [address] eGFR (CKD-EPI) NON-RACE DEPENDENT >90 Normal >59 [facility] Comment on above: Result Comment: Reported eGFR is based on the CKD-EPI 2020 equation that does not use a race coefficient. Performed By: #### C BCA, CMP, 2532-0, 3084-1, FEPR, 2276-4, 46906-6 #### [facility] ([id number]) [address], [facility] [address] [place] [address] Glucose [Mass/Vol] 80 mg/dL Normal 65-99 [facility] Comment on above: Performed By: #### C BCA, CMP, 2532-0, 3084-1, FEPR, 2276-4, 41973-1 #### [facility] ([id number]) [address], [address] [place] [address] Potassium [Moles/Vol] 3.9 mmol/L Normal 3.5-5.0 [facility] Comment on above: Performed By: #### C BCA, CMP, 2532-0, 3084-1, FEPR, 2276-4, 52311-2 #### [facility] ([id number]) [address], [address] [place] [address] Protein [Mass/Vol] 6.3 g/dL Normal 6.0-8.0 [facility] Comment on above: Performed By: #### C BCA, CMP, 2532-0, 3084-1, FEPR, 2276-4, 16256-2 #### [facility] ([id number]) [address], [address] [place] [address] Sodium [Moles/Vol] 142 mmol/L Normal 134-146 [facility] Comment on above: Performed By: #### C BCA, CMP, 2532-0, 3084-1, FEPR, 2276-4, 22737-3 #### [facility] ([id number]) [address], [address] [place] [address] Urea nitrogen [Mass/Vol] 9 mg/dL Normal 5-23 [facility] Comment on above: Performed By: #### C BCA, CMP, 2532-0, 3084-1, FEPR, 2276-4, 62758-6 #### [facility] ([id number]) [address], [address] [place] [address] DRUG SCREEN, URINEon 024 AMPHETAMINE/METHAMP Negative Normal NEG [facility] Comment on above: Result Comment: AMPH /METH screening cut off = 1000 ng/mL Performed By: #### D LITTLE #### [facility] ([id number]) [address], [address] [place] [address] BARBITURATES Negative Normal NEG [facility] Comment on above: Result Comment: Sol iturates screening cut off value = 200 ng/mL Performed By: #### D LITTLE #### [facility] ([id number]) [address], [address] [place] [address] BENZODIAZEPINES Negative Normal NEG [facility] Comment on above: Result Comment: Laci odiazepines screening cut off value = 200 ng/mL Performed By: #### D LITTLE #### [facility] ([id number]) [address], [address] [place] [address] CANNABINOIDS Negative Normal NEG [facility] Comment on above: Result Comment: Neno abinoids/THC screening cut off value = 50 ng/mL Performed By: #### D LITTLE #### [facility] ([id number]) [address], [address] [place] [address] COCAINE METABOLITE Negative Normal NEG [facility] Comment on above: Result Comment: Coca ine screening cut off value = 300 ng/mL Performed By: #### D LITTLE #### [facility] ([id number]) [address], [address] [place] [address] ECSTASY Negative Normal [facility] Comment on above: Result Comment: Ecst asy screening cut off value = 500 ng/mL This report is intended for use in clinical monitoring or management of patients. Performed By: #### D LITTLE #### [facility] ([id number]) [address], [address] [place] [address] METHADONE Negative Normal NEG [facility] Comment on above: Result Comment: Meth adone screening cut off value = 300 ng/mL. Performed By: #### D LITTLE #### [facility] ([id number]) [address], [address] [place] [address] OPIATES Negative Normal NEG [facility] Comment on above: Result Comment: Opia ermias screening cut off value = 300 ng/mL NOTE: This test is used for the detection of codeine, hydrocodone (>1000 ng/mL), morphine and hydromorphone (>900 ng/mL) in urine. Performed By: #### D LITTLE #### [facility] ([id number]) [address] [address] OXYCODONE Negative Normal NEG [facility] Comment on above: Result Comment: Oxyc odone screening cut off value = 300 ng/mL NOTE: This test is used for the detection of oxycodone and oxymorphone in urine. Performed By: #### D LITTLE #### [facility] ([id number]) [address] [address] PHENCYCLIDINE Negative Normal NEG [facility] Comment on above: Result Comment: Phen cyclidine screening cut off value = 25 ng/mL Performed By: #### D LITTLE #### [facility] ([id number]) [address], [address] [address] FERRITINon 01-11-2024 Ferritin [Mass/Vol] 8 ng/mL Low 11-307 [facility] Comment on above: Performed By: #### C BCA, CMP, 2532-0, 3084-1, FEPR, 2276-4, 17615-4 #### [facility] ([id number]) [address], [address] [address] IRON PROFILEon 01-11-2024 Iron [Mass/Vol] 24 ug/dL Low 50-170 [facility] Comment on above: Performed By: #### C BCA, CMP, 2532-0, 3084-1, FEPR, 2276-4, 71995-8 #### [facility] ([id number]) [address], [address] [place] [address] IRON BINDING 598 ug/dL High 250-425 [facility] Comment on above: Performed By: #### C BCA, CMP, 2532-0, 3084-1, FEPR, 2276-4, 97151-8 #### [facility] ([id number]) [address] [address] IRON SATURATION 4 % SATURATION Low 15-50 [facility] Comment on above: Performed By: #### C BCA, CMP, 2532-0, 3084-1, FEPR, 2276-4, 59982-2 #### [facility] ([id number]) [address] [address] LDH [Catalytic activity/Vol] on 01-11-2024 LDH 151 U/L Normal 100-235 [facility] Comment on above: Performed By: #### C BCA, CMP, 2532-0, 3084-1, FEPR, 2276-4, 84552-0 #### [facility] ([id number]) [address] [address] PROTEIN CREAT RATIOon 2023 RANDOM URINE PROTEIN 350 mg/L High <120 [facility] Comment on above: Performed By: #### U PCR #### [facility] ([id number]) [address] [address] U/PRO/HOSPICE/HOME HEALTH AIDE RATIO CALC 2.00 High <0.2 [facility] Comment on above: Result Comment: Neph rotic Syndrome is associated with ratios >3.5 Performed By: #### U PCR #### [facility] ([id number]) [address] [address] URINE CREATININE,RDM 17.47 mg/dL Normal [facility] Comment on above: Performed By: #### U PCR #### [facility] ([id number]) [address] [address] T. pallidum IgG+IgM IA Ql (S )on 01-11-2024 Syphilis Total <0.2 Normal 0.0-0.8 [facility] Comment on above: Result Comment: NON REACTIVE No serologic evidence of infection to Treponema pallidum (syphilis). Repeat testing may be considered in patients with suspected acute or primary syphilis in 2 to 4 weeks. Performed By: #### C BCA, CMP, 2532-0, 3084-1, FEPR, 2276-4, 30762-0 #### [facility] ([id number]) [address], [address] [place] [address] URIC ACIDon 01-11-2024 Urate [Mass/Vol] 7.6 mg/dL High 2.6-7.2 [facility] Comment on above: Performed By: #### C BCA, CMP, 2532-0, 3084-1, FEPR, 2276-4, 64560-6 #### [facility] ([id number]) [address], [address] [place] [address] Coxsackie B Abon 10-26-2023 Coxsackie tp. B1 <1:10 Normal <1:10 [facility] Comment on above: Performed By: #### C MVG, LUPPRO, AT3A, PROCAC, PROSAC, CMVM, CMIS, TOXOG, TOXOM, HOCYS #### [facility] [address] [place] [address] [phone] [employer] Former: Tanvir Macias MD #### APTMUT, AF5MUT, AMTHFR, ACOXA9, APARVP, ACOXAB #### [address] [address] [employer] Former: Enrique Arthur MD Coxsas[place] tp. B2 1:20 Normal <1:10 [facility] Comment on above: Performed By: #### C MVG, LUPPRO, AT3A, PROCAC, PROSAC, CMVM, CMIS, TOXOG, TOXOM, HOCYS #### [facility] [address] [place] [address] [phone] [employer] Former: Tanvir Macias MD #### APTMUT, AF5MUT, AMTHFR, ACOXA9, APARVP, ACOXAB #### [facility] [address] [place], [place] [id number] [employer] Former: MD Tatum Santoyo B3 1:10 Normal <1:10 [facility] Comment on above: Performed By: #### C MVG, LUPPRO, AT3A, PROCAC, PROSAC, CMVM, CMIS, TOXOG, TOXOM, HOCYS #### [facility] [address] [place] [address] [employer] Former: Tanvir Macias MD #### APTMUT, AF5MUT, AMTHFR, ACOXA9, APARVP, ACOXAB #### [facility] [address] [place], [place] [id number] [employer] Former: MD Tatum Santoyo. B4 1:320 Abnormal <1:10 [facility] Comment on above: Performed By: #### C MVG, LUPPRO, AT3A, PROCAC, PROSAC, CMVM, CMIS, TOXOG, TOXOM, HOCYS #### [facility] [address] [place] [address] [employer] Former: Tanvir Macias MD #### APTMUT, AF5MUT, AMTHFR, ACOXA9, APARVP, ACOXAB #### [facility] [address] [place], [place] [id number] [employer] Former: MD Tatum Santoyo B5 <1:10 Normal <1:10 [facility] Comment on above: Performed By: #### C MVG, LUPPRO, AT3A, PROCAC, PROSAC, CMVM, CMIS, TOXOG, TOXOM, HOCYS #### [facility] [address] [place] [address] [employer] Former: Tanvir Macias MD #### APTMUT, AF5MUT, AMTHFR, ACOXA9, APARVP, ACOXAB #### [facility] [address] [place] [address] [employer] Former: Enrique Arthur MD Coxckosmani tp. B6 <1:10 Normal <1:10 [facility] Comment on above: Result Comment: (NOT E) INTERPRETIVE INFORMATION: Coxsackie B Virus Single positive antibody titers of greater than or equal to 1:80 may indicate past or current infection. Sero- conversion or an increase in titers between acute and convalescent sera of at least fourfold is considered strong evidence of current or recent infection. Performed By: [facility] [address] [place] [address] Supervisor Mill: Nadeem Mcarthur MD, PhD CLIA Number: [id number] Performed By: #### C MVG, LUPPRO, AT3A, PROCAC, PROSAC, CMVM, CMIS, TOXOG, TOXOM, HOCYS #### [address] [phone] [employer] Former: Tanvir Macias MD #### APTMUT, AF5MUT, AMTHFR, ACOXA9, APARVP, ACOXAB #### [address] [phone] [employer] Former: Enrique Arthur MD Factor V Mutationon 10-22-19 24 F 5 SPECIMEN Whole Blood Normal [facility] Comment on above: Performed By: #### C MVG, LUPPRO, AT3A, PROCAC, PROSAC, CMVM, CMIS, TOXOG, TOXOM, HOCYS #### [address] [phone] [employer] Former: Tanvir Macias MD #### APTMUT, AF5MUT, AMTHFR, ACOXA9, APARVP, ACOXAB #### [facility] [address] [place] [address] [employer] Former: Enrique Arthur MD FACTOR 5 MUTATION Negative Normal [facility] Comment on above: Result Comment: (NOT E) Indication for testing: Assess genetic risk for thrombosis. NEGATIVE: The factor V Leiden variant, c.1601G>A; p.Bex823Mjj, was not detected. This does not exclude [...] function in the F5 gene variant c.1601G>A (p.Pbh745Vds). Legacy nomenclature: [id number] (1691G>A) CLINICAL SENSITIVITY: 20-50 percent of individuals with an isolated VTE have the FVL variant. METHODOLOGY: Polymerase chain reaction and fluorescence monitoring. ANALYTICAL SENSITIVITY AND SPECIFICITY: 99 percent. LIMITATIONS: Diagnostic errors can occur due to rare sequence variations. F5 gene mutations, other than p.Vdu552Uxs, will not be detected. This test was developed and its performance characteristics determined by [facility]. It has not been cleared or approved by the [place] Food and Drug Administration. This test was performed in a CLIA certified laboratory and is intended for clinical purposes. Counseling and informed consent are recommended for genetic testing. Consent forms are available online. Performed By: [place] [address] Supervisor Mill: Nadeem Mcarthur MD, PhD CLIA Number: [id number] Performed By: #### C MVG, LUPPRO, AT3A, PROCAC, PROSAC, CMVM, CMIS, TOXOG, TOXOM, HOCYS #### [address] [phone] [employer] Former: Tanvir Macias MD #### APTMUT, AF5MUT, AMTHFR, ACOXA9, APARVP, ACOXAB #### [address] [address] [employer] Former: Enrique Arthur MD Coxsackie A9 Titeron 024 Coxsackie A9 Titer <1:8 Normal <1:8 [facility] Comment on above: Result Comment: (NOT E) INTERPRETIVE INFORMATION: Coxsackie A Serotype 9 Titer Single positive antibody titers of greater than 1:32 may indicate past or current infection. Seroconversion or an increase in titers between acute and convalescent sera of at least fourfold is considered strong evidence of current or recent infection. Performed By: [facility] [employer] [address] [place] [address] Supervisor Mill: Nadeem Mcarthur MD, PhD CLIA Number: [id number] Performed By: #### C MVG, LUPPRO, AT3A, PROCAC, PROSAC, CMVM, CMIS, TOXOG, TOXOM, HOCYS #### [address] [phone] [employer] Former: Tanvir Macias MD #### APTMUT, AF5MUT, AMTHFR, ACOXA9, APARVP, ACOXAB #### [address] [address] [employer] Former: Enrique Arthur MD MTHFR Gene Mutationon 2023 MTHFR 1286 A>C Mut Negative Normal [facility] Comment on above: Performed By: #### C MVG, LUPPRO, AT3A, PROCAC, PROSAC, CMVM, CMIS, TOXOG, TOXOM, HOCYS #### [facility] [address] [place] [address] [employer] Former: aTnvir Macias MD #### APTMUT, AF5MUT, AMTHFR, ACOXA9, APARVP, ACOXAB #### [facility] [address] [place], [place] [id number] [employer] Former: Enrique Arthur MD MTHFR 655C>T Mut Heterozygous Normal [facility] Comment on above: Performed By: #### C MVG, LUPPRO, AT3A, PROCAC, PROSAC, CMVM, CMIS, TOXOG, TOXOM, HOCYS #### [address] [phone] [employer] Former: Tanvir Macias MD #### APTMUT, AF5MUT, AMTHFR, ACOXA9, APARVP, ACOXAB #### [facility] [address] [place] [address] [employer] Former: Enrique Arthur MD MTHFR Interpretation See Note Normal [facility] Comment on above: Result Comment: (NOT E) Indication for testing: Determine genetic contribution to hyperhomocysteinemia. Heterozygous MTHFR c.665C>T: One copy of the MTHFR variant c.665C>T (previously designated C677T) was detected; the c.1286A>C (previously designated V0945U) variant was not identified. The common variant [...] has an effect on cardiovascular disease. The [employer] Practice Guidelines indicate [...] a contributing factor to hyperhomocysteinemia. Variants Tested: c.665C>T(p.Kwu729Zsm) and c.1286A>C(p.Wec795Eko). (legacy names C677T and H3426U, respectively). Clinical Sensitivity: Undefined; hyperhomocysteinemia is caused [...] developed and its performance characteristics determined by [facility]. It has not been cleared or approved by the [place] Food and Drug Administration. This test was performed in a CLIA certified laboratory and is intended for clinical purposes. Counseling and informed consent are recommended for genetic testing. Consent forms are available online. Performed By: [facility] [address] [place] [address] Supervisor Mill: Nadeem Mcarthur MD, PhD CLIA Number: [id number] Performed By: #### C MVG, LUPPRO, AT3A, PROCAC, PROSAC, CMVM, CMIS, TOXOG, TOXOM, HOCYS #### [address] [address] [employer] Former: Tanvir Macias MD #### APTMUT, AF5MUT, AMTHFR, ACOXA9, APARVP, ACOXAB #### [facility] [address] [place] [address] [employer] Former: Enrique Arthur MD MTHFR SPECIMEN Whole Blood Normal [facility] Comment on above: Performed By: #### C MVG, LUPPRO, AT3A, PROCAC, PROSAC, CMVM, CMIS, TOXOG, TOXOM, HOCYS #### [facility] [address] [place] [phone] [employer] Former: Tanvir Macias MD #### APTMUT, AF5MUT, AMTHFR, ACOXA9, APARVP, ACOXAB #### [facility] [address] [place], [place] [id number] [employer] Former: Enrique Arthur MD PT Mutation [id number] 10-21-19 24 PT [id number] VARIANT Negative Normal [facility] Comment on above: Result Comment: (NOT E) Indication for testing: Assess genetic risk for thrombosis. NEGATIVE: The Factor II, prothrombin W63321O mutation, was not detected. Other causes of [...] Quintana, Ph.D. BACKGROUND INFORMATION: Prothrombin (F2) c.*97G>A (J11249P) Pathogenic Variant CHARACTERISTICS: The Factor II, c.*97G>A (S58878L) pathogenic variant is a common genetic risk [...] CAUSE: Homozygosity or heterozygosity for F2 c.*97G>A (X09230J). PATHOGENIC VARIANT TESTED: F2 c.*97G>A (N06636B). CLINICAL SENSITIVITY FOR VENOUS THROMBOSIS: Approximately 10 percent. METHODOLOGY: Polymerase chain reaction and fluorescence monitoring. ANALYTICAL SENSITIVITY AND SPECIFICITY: 99 percent. LIMITATIONS: Diagnostic errors can occur due to rare sequence variations. F2 gene variants, other than c.*97G>A (O67896K), will not be detected. This test was developed and its performance characteristics determined by [facility]. It has not been cleared or approved by the [place] Food and Drug Administration. This test was performed in a CLIA certified laboratory and is intended for clinical purposes. Counseling and informed consent are recommended for genetic testing. Consent forms are available online. Performed By: [facility] [address] [place], [place] [id number] Supervisor Mill: Nadeem Mcarthur MD, PhD [place] Number: [id number] Performed By: #### C MVG, LUPPRO, AT3A, PROCAC, PROSAC, CMVM, CMIS, TOXOG, TOXOM, HOCYS #### [place] [address] [employer] Former: Tanvir Macias MD #### APTMUT, AF5MUT, AMTHFR, ACOXA9, APARVP, ACOXAB #### [place] [id number] [employer] Former: Enrique Arthur MD PT PCR SPECIMEN Whole Blood Normal [facility] Comment on above: Performed By: #### C MVG, LUPPRO, AT3A, PROCAC, PROSAC, CMVM, CMIS, TOXOG, TOXOM, HOCYS #### [place] [address] [employer] Former: Tanvir Macias MD #### APTMUT, AF5MUT, AMTHFR, ACOXA9, APARVP, ACOXAB #### [facility] [address] [place] [address] [employer] Former: Enrique Arthur MD Parvovirus B19 Panelon 10-21 Parvovirus IgG B19 1.80 IV High <=0.90 [facility] Comment on above: Result Comment: [...] CMIS, TOXOG, TOXOM, HOCYS #### [facility] [employer] [address] [place] [address] [employer] Former: Tanvir Macias MD #### APTMUT, AF5MUT, AMTHFR, ACOXA9, APARVP, ACOXAB #### [facility] [address] [place] [address] [employer] Former: Enrique Arthur MD Parvovirus IgM B19 0.12 IV Normal <=0.90 [facility] Comment on above: Result Comment: (NOT E) INTERPRETIVE INFORMATION: Parvovirus B19 Antibody, IgM EFFECTIVE 07/04/2023 REFERENCE INTERVAL CHANGE Due to reagent kit shop cooper recall, an alternate kit has been validated and implemented by [facility]. The following Reference Interval applies [...] levels of specific IgM antibodies. Performed By: [facility] [address] [place] [address] Supervisor Mill: Nadeem Mcarthur MD, PhD CLIA Number: [id number] Performed By: #### C MVG, LUPPRO, AT3A, PROCAC, PROSAC, CMVM, CMIS, TOXOG, TOXOM, HOCYS #### [facility] [address] [place] [address] [phone] [employer] Former: Tanvir Macias MD #### APTMUT, AF5MUT, AMTHFR, ACOXA9, APARVP, ACOXAB #### [facility] [address] [place] [address] [employer] Former: Enrique Arthur MD Antithrombin III Becka 10-18 Antithrombin III Act 106 % Normal 83-122 [facility] Comment on above: Result Comment: Patients receiving Hirudin may have a falsely decreased Antitrombin III Activity. Performed By: #### C MVG, LUPPRO, AT3A, PROCAC, PROSAC, CMVM, CMIS, TOXOG, TOXOM, HOCYS #### [employer] [address] [place] [address] [phone] [employer] Former: Tanvir Macias MD #### APTMUT, AF5MUT, AMTHFR, ACOXA9, APARVP, ACOXAB #### [facility] Mobile [address] [place] [id number] [employer] Former: Enrique Arthur MD Lupus Anticoagulanton 2023 Anticardiolipin IgA 2.4 APL Normal 0.0-14.0 [facility] Comment on above: Result Comment: Reference Range: <14.0 Negative 14.0-20.0 Equivocal >20.0 Positive When results are Equivocal, it is recommended to retest after 4-6 weeks. Performed By: #### C MVG, LUPPRO, AT3A, PROCAC, PROSAC, CMVM, CMIS, TOXOG, TOXOM, HOCYS #### [facility] [address] [place] [id number] [employer] Former: Tanvir Macias MD #### APTMUT, AF5MUT, AMTHFR, ACOXA9, APARVP, ACOXAB #### [facility] [address] [place] [address] [employer] Former: Enrique Arthur MD Anticardiolipin IgG 2.8 GPL Normal 0.0-10.0 [facility] Comment on above: Result Comment: Reference Range: <10.0 Negative 10.0-40.0 Equivocal >40.0 Positive Performed By: #### C MVG, LUPPRO, AT3A, PROCAC, PROSAC, CMVM, CMIS, TOXOG, TOXOM, HOCYS #### [facility] [address] [place] [address] [phone] [employer] Former: Tanvir Macias MD #### APTMUT, AF5MUT, AMTHFR, ACOXA9, APARVP, ACOXAB #### [facility] [address] [place] [address] [employer] Former: Enrique Arthur MD Anticardiolipin IgM <0.8 Normal 0.0-10.0 [facility] Comment on above: Result Comment: Reference Range: <10.0 Negative 10.0-40.0 Equivocal >40.0 Positive Performed By: #### C MVG, LUPPRO, AT3A, PROCAC, PROSAC, CMVM, CMIS, TOXOG, TOXOM, HOCYS #### [facility] [address] [place] [address] [employer] Former: Tanvir Macias MD #### APTMUT, AF5MUT, AMTHFR, ACOXA9, APARVP, ACOXAB #### [facility] [address] [place] [address] [employer] Former: Enrique Arthur MD Dilute [facility]per [facility] Comment on above: Performed By: #### C MVG, LUPPRO, AT3A, PROCAC, PROSAC, CMVM, CMIS, TOXOG, TOXOM, HOCYS #### [facility] [address] [place] [address] [phone] [employer] Former: Tanvir Macias MD #### APTMUT, AF5MUT, AMTHFR, ACOXA9, APARVP, ACOXAB #### [facility] [address] [place], [place] [phone] [employer] Former: Enrique Arthur MD Miscellaneouson 10-18-2023 Send Out Report [facility] [employer] [id number] Normal [facility] Comment on above: Result Comment: UNIT Y Performed By: #### C MVG, LUPPRO, AT3A, PROCAC, PROSAC, CMVM, CMIS, TOXOG, TOXOM, HOCYS #### [facility] [address] [place] [address] [phone] [employer] Former: Tanvir Macias MD #### APTMUT, AF5MUT, AMTHFR, ACOXA9, APARVP, ACOXAB #### [facility] [address] [place] [address] [employer] Former: Enrique Arthur MD Protein C Activityon 024 Protein C Activity 91 % Normal >80 [facility] Comment on above: Result Comment: [...] CMVM, CMIS, TOXOG, TOXOM, HOCYS #### [facility] [address] [place] [id number] [employer] Former: Tanvir Macias MD #### APTMUT, AF5MUT, AMTHFR, ACOXA9, APARVP, ACOXAB #### [address] [address] [employer] Former: Enrique Arthur MD Protein S Activityon 024 Protein S Activity 79 % Normal 59-130 [facility] Comment on above: Result Comment: [...] CMVM, CMIS, TOXOG, TOXOM, HOCYS #### [facility] [address] [place] [address] [phone] [employer] Former: Tanvir Macias MD #### APTMUT, AF5MUT, AMTHFR, ACOXA9, APARVP, ACOXAB #### [address] [address] [employer] Former: Enrique Arthur MD Toxoplasma Ab,IgGon 10-18-19 24 Toxoplasma Ab,IgG 1.2 IU/mL Normal [facility] Comment on above: Result Comment: REFERENCE RANGE: [...] PROSAC, CMVM, CMIS, TOXOG, TOXOM, HOCYS #### [address] [phone] [employer] Former: Tanvir Macias MD #### APTMUT, AF5MUT, AMTHFR, ACOXA9, APARVP, ACOXAB #### [address] [phone] [employer] Former: Enrique Arthur MD Toxoplasma Ab,IgMon 10-18-19 Toxoplasma Ab,IgM 0.56 Index Normal [facility] Comment on above: Result Comment: REFERENCE RANGE: <0.90 NON-REACTIVE 0.90 TO 0.99 INDETERMINANT >=1.00 REACTIVE Performed By: #### C MVG, LUPPRO, AT3A, PROCAC, PROSAC, CMVM, CMIS, TOXOG, TOXOM, HOCYS #### [facility] [address] [place] [address] [phone] [employer] Former: Tanvir Macias MD #### APTMUT, AF5MUT, AMTHFR, ACOXA9, APARVP, ACOXAB #### [facility] [address] [place], [place] [phone] [employer] Former: Enrique Arthur MD CMV Ab,IgGon 10-17-2023 CMV Ab,IgG 523.[address] <[address]5 [facility] Comment on above: Result Comment: Reference [...] CMIS, TOXOG, TOXOM, HOCYS #### [facility] [address] [place] [address] [phone] [employer] Former: Tanvir Macias MD #### APTMUT, AF5MUT, AMTHFR, ACOXA9, APARVP, ACOXAB #### [facility] [address] [place] [id number] [employer] Former: Enrique Arthur MD CMV Ab,IgMon 10-17-2023 CMV Ab,IgM 0.2 Normal <0.7 [facility] Comment on above: Result Comment: Reference [...] CMIS, TOXOG, TOXOM, HOCYS #### [facility] [address] [place] [address] [phone] [employer] Former: Tanvir Macias MD #### APTMUT, AF5MUT, AMTHFR, ACOXA9, APARVP, ACOXAB #### [facility] [address] [place] [address] [phone] [employer] Former: Enrique Arthur MD Homocysteineon 10-17-2023 Homocysteine 5.7 umol/L Normal <15.0 [facility] Comment on above: Performed By: #### C MVG, LUPPRO, AT3A, PROCAC, PROSAC, CMVM, CMIS, TOXOG, TOXOM, HOCYS #### [facility] [address] [place] [address] [phone] [employer] Former: Tanvir Macias MD #### APTMUT, AF5MUT, AMTHFR, ACOXA9, APARVP, ACOXAB #### [facility] [address] [place], [place] [phone] [employer] Former: Enrique Arthur MD Lupus Anticoagulanton 2023 aPTT Coag (d) [Time] 27.6 s Normal 23.0-36.5 [facility] Comment on above: Result Comment: IV Heparin Therapy Range: 66.0-92.0 sec Performed By: #### C MVG, LUPPRO, AT3A, PROCAC, PROSAC, CMVM, CMIS, TOXOG, TOXOM, HOCYS #### [address] [phone] [employer] Former: Tanvir Macias MD #### APTMUT, AF5MUT, AMTHFR, ACOXA9, APARVP, ACOXAB #### [facility] [address] [place] [address] [employer] Former: Enrique Arthur MD INR Coag (PPP) [Relative time] 1.0 {INR} Normal [facility] Comment on above: Result Comment: Therapeutic Range: Moderate Anticoagulant Intensity: INR = 2.0-3.0 High Anticoagulant Intensity: INR = 2.5-3.5 Performed By: #### C MVG, LUPPRO, AT3A, PROCAC, PROSAC, CMVM, CMIS, TOXOG, TOXOM, HOCYS #### [facility] [address] [place] [address] [phone] [employer] Former: Tanvir Macias MD #### APTMUT, AF5MUT, AMTHFR, ACOXA9, APARVP, ACOXAB #### [facility] [address] [place] [address] [employer] Former: Enrique Arthur MD PT Coag (PPP) [Time] 13.5 s Normal 11.7-14.9 [facility] Comment on above: Performed By: #### C MVG, LUPPRO, AT3A, PROCAC, PROSAC, CMVM, CMIS, TOXOG, TOXOM, HOCYS #### [facility] [address] [place] [address] [employer] Former: Tanvir Macias MD #### APTMUT, AF5MUT, AMTHFR, ACOXA9, APARVP, ACOXAB #### [facility] [address] [place] [address] [employer] Former: Enrique Arthur MD Basic Metabolic Panelon Glucose [Mass/Vol] 97 mg/dL [facility] CBC without diffOrdered By: Mayra Victoria on 07-26-2023 Hematocrit (Bld) [Volume fraction] 34.8 % [facility] Hemoglobin (Bld) [Mass/Vol] 11.3 g/dL [facility] Platelets (Bld) [#/Vol] 292 10*3/uL [facility] Rbc Mcv (Fl) By Automated Count 83.5 [facility] HIV 1&2 AB/AG Screen (P24 AG )on 07-26-2023 HIV 1&2 AB/AG Non-Reactive [facility] Hemoglobin A1con 07-26-2023 HbA1c (Bld) [Mass fraction] 5.0 % 4.0 - 6.0 % [facility] Hepatitis B surface antigeno n 07-26-2023 Hepatitis B Surface Antigen Negative [facility] No Panel InformationOrdered By: Mayra Victoria on 07-26-2023 [facility] Rubella IGG immune statuson 07-26-2023 Rubella immune IgG 5.26 [facility] Syphilis Total(Unknown Syphi lis Status)on 07-26-2023 Syphilis Non-Reactive [facility] TSHon 07-26-2023 TSH Qn 1.99 m[IU]/L [facility] Type and screenon 07-26-2023 Abo/Rh(D) Positive [facility] CBC AUTO DIFFon 07-28-2022 BASO # 0.0 103/ul Normal 0.0-0.1 [facility] Comment on above: Performed By: #### H CVPCRR #### [facility] [address] [address] [address] Carleen Underwood Basophils/100 WBC (Bld) 0.3 % Normal 0.2-2.0 [facility] Comment on above: Performed By: #### H CVPCRR #### [facility] [address] [place] [address] Dr. Carleen Underwood EO # 0.2 103/ul Normal 0.0-0.7 [facility] Comment on above: Performed By: #### H CVPCRR #### [facility] [address] [address] [address] Carleen Underwood Eosinophils/100 WBC (Bld) 1.5 % Normal 0.9-7.0 [facility] Comment on above: Performed By: #### H CVPCRR #### [facility] [address] [place] [address] Dr. Carleen Underwood Erythrocyte distribution width (RBC) [Ratio] 14.9 % Normal 11.0-15.0 [facility] Comment on above: Performed By: #### H CVPCRR #### [facility] [address] [place] [address] Dr. Carleen Underwood Hematocrit (Bld) [Volume fraction] 30.7 % Critically low 36.0-48.0 [facility] Comment on above: Performed By: #### H CVPCRR #### [facility] [address] [place] [address] Dr. Carleen Underwood Hemoglobin (Bld) [Mass/Vol] 9.4 g/dL Critically low 12.0-16.0 [facility] Comment on above: Performed By: #### H CVPCRR #### [facility] [address] [address] [address] Carleen Underwood IG # 0.07 10e3/ul Critically high 0.00-0.03 [facility] Comment on above: Performed By: #### H CVPCRR #### [facility] [address] [place] [address] Dr. Carleen Udnerwood IG % 0.6 % Critically high 0.0-0.5 [facility] Comment on above: Performed By: #### H CVPCRR #### [facility] [address] [place] [address] Dr. Carleen Underwood LYMPH # 2.7 103/ul Normal 1.2-3.8 [facility] Comment on above: Performed By: #### H CVPCRR #### [facility] [address] [place] [address] Dr. Carleen Underwood Lymphocytes/100 WBC (Bld) 24.1 % Normal 20.5-60.0 [facility] Comment on above: Performed By: #### H CVPCRR #### [facility] [address] [place] [address] Dr. Carleen Underwood MANUAL DIFF REQ NO Normal [facility] Comment on above: Performed By: #### H CVPCRR #### [facility] [address] [place] [address] Dr. Carleen Underwood MCH (RBC) [Entitic mass] 23.3 pg Critically low 26.7-34.0 [facility] Comment on above: Performed By: #### H CVPCRR #### [facility] [address] [address] [address] Carleen Underwood MCHC (RBC) [Mass/Vol] 30.6 g/dL Normal 29.9-35.2 [facility] Comment on above: Performed By: #### H CVPCRR #### [facility] [address] [place] [address] Dr. Carleen Underwood MCV (RBC) [Entitic vol] 76.2 fL Critically low 81.0-99.0 [facility] Comment on above: Performed By: #### H CVPCRR #### [facility] [address] [address] [address] Carleen Underwood MONO # 0.7 103/ul Normal 0.3-0.8 [facility] Comment on above: Performed By: #### H CVPCRR #### [facility] [address] [place] [address] Dr. Carleen Underwood Monocytes/100 WBC (Bld) 5.8 % Normal 1.7-12.0 [facility] Comment on above: Performed By: #### H CVPCRR #### [facility] [address] [place] [address] Dr. Carleen Underwood NEUT # 7.6 103/ul Critically high 1.4-6.5 [facility] Comment on above: Performed By: #### H CVPCRR #### [facility] [address] [place] [address] Dr. Carleen Underwood Neutrophils/100 WBC (Bld) 67.7 % Normal 43.0-75.0 [facility] Comment on above: Performed By: #### H CVPCRR #### [facility] [address] [place] [address] Dr. Carleen Underwood Platelet mean volume (Bld) [Entitic vol] 11.1 fL Normal 9.5-13.5 [facility] Comment on above: Performed By: #### H CVPCRR #### [facility] [address] [place] [address] Dr. Carleen Underwood PLT 242 103/ul Normal 150-450 [facility] Comment on above: Performed By: #### H CVPCRR #### [facility] [address] [place] [address] Dr. Carleen Underwood RBC 4.03 106/ul Critically low 4.20-5.40 [facility] Comment on above: Performed By: #### H CVPCRR #### [facility] [address] [place] [address] Dr. Carleen Underwood WBC 11.2 103/ul Critically high 4.0-11.0 [facility] Comment on above: Performed By: #### H CVPCRR #### [facility] [address] [address] [address] Carleen Underwood CBC AUTO DIFFon 07-27-2022 BASO # 0.0 103/ul Normal 0.0-0.1 [facility] Comment on above: Performed By: #### G LU1HR #### [facility] [address] [place] [address] Dr. Carleen Underwood Basophils/100 WBC (Bld) 0.5 % Normal 0.2-2.0 [facility] Comment on above: Performed By: #### G LU1HR #### [facility] [address] [place] [address] Dr. Carleen Underwood EO # 0.1 103/ul Normal 0.0-0.7 [facility] Comment on above: Performed By: #### G LU1HR #### [facility] [address] [place] [address] Dr. Carleen Underwood Eosinophils/100 WBC (Bld) 1.2 % Normal 0.9-7.0 [facility] Comment on above: Performed By: #### G LU1HR #### [facility] [address] [place] [address] Dr. Carleen Underwood Erythrocyte distribution width (RBC) [Ratio] 14.9 % Normal 11.0-15.0 [facility] Comment on above: Performed By: #### G LU1HR #### [facility] [address] [place] [address] Dr. Carleen Underwood Hematocrit (Bld) [Volume fraction] 29.6 % Critically low 36.0-48.0 [facility] Comment on above: Performed By: #### G LU1HR #### [facility] [address] [place] [address] Dr. Carleen Underwood Hemoglobin (Bld) [Mass/Vol] 9.3 g/dL Critically low 12.0-16.0 [facility] Comment on above: Performed By: #### G LU1HR #### [facility] [address] [place] [address] Dr. Carleen Underwood IG # 0.04 10e3/ul Critically high 0.00-0.03 [facility] Comment on above: Performed By: #### G LU1HR #### [facility] [address] [place] [address] Dr. Carleen Underwood IG % 0.5 % Normal 0.0-0.5 [facility] Comment on above: Performed By: #### G LU1HR #### [facility] [address] [address] [address] Carleen Underwood LYMPH # 2.1 103/ul Normal 1.2-3.8 [facility] Comment on above: Performed By: #### G LU1HR #### [facility] [address] [place] [address] Dr. Carleen Underwood Lymphocytes/100 WBC (Bld) 25.5 % Normal 20.5-60.0 [facility] Comment on above: Performed By: #### G LU1HR #### [facility] [address] [place] [address] Dr. Carleen Underwood MANUAL DIFF REQ NO Normal [facility] Comment on above: Performed By: #### G LU1HR #### [facility] [address] [place] [address] Dr. Carleen Underwood MCH (RBC) [Entitic mass] 23.2 pg Critically low 26.7-34.0 [facility] Comment on above: Performed By: #### G LU1HR #### [facility] [address] [place] [address] Dr. Carleen Underwood MCHC (RBC) [Mass/Vol] 31.4 g/dL Normal 29.9-35.2 [facility] Comment on above: Performed By: #### G LU1HR #### [facility] [address] [place] [address] Dr. Carleen Underwood MCV (RBC) [Entitic vol] 73.8 fL Critically low 81.0-99.0 [facility] Comment on above: Performed By: #### G LU1HR #### [facility] [address] [place] [address] Dr. Carleen Underwood MONO # 0.5 103/ul Normal 0.3-0.8 [facility] Comment on above: Performed By: #### G LU1HR #### [facility] [address] [place] [address] Dr. Carleen Underwood Monocytes/100 WBC (Bld) 6.2 % Normal 1.7-12.0 [facility] Comment on above: Performed By: #### G LU1HR #### [facility] [address] [place] [address] Dr. Carleen Unedrwood NEUT # 5.4 103/ul Normal 1.4-6.5 [facility] Comment on above: Performed By: #### G LU1HR #### [facility] [address] [place] [address] Dr. Carleen Underwood Neutrophils/100 WBC (Bld) 66.1 % Normal 43.0-75.0 [facility] Comment on above: Performed By: #### G LU1HR #### [facility] [address] [place] [address] Dr. Carleen Underwood Platelet mean volume (Bld) [Entitic vol] 11.3 fL Normal 9.5-13.5 [facility] Comment on above: Performed By: #### G LU1HR #### [facility] [address] [place] [address] Dr. Carleen Underwood PLT 238 103/ul Normal 150-450 [facility] Comment on above: Performed By: #### G LU1HR #### [facility] [address] [place] [address] Dr. Carleen Underwood RBC 4.01 106/ul Critically low 4.20-5.40 [facility] Comment on above: Performed By: #### G LU1HR #### [facility] [address] [place] [address] Dr. Carleen Underwood WBC 8.2 103/ul Normal 4.0-11.0 [facility] Comment on above: Performed By: #### G LU1HR #### [facility] [address] [place] [address] Dr. Carleen Underwood Covid-19 PCR (CVDTBH)on SARS-CoV-2 (COVID-19) RNA HUY+probe Ql (Unsp spec) Not detected Normal NOT DETECTED [facility] Comment on above: Result Comment: When [...] for this test is supported by the Percussion Instrument Repairer of Health and Human Service's declaration that [...] used). Performed By: #### H CVPCRR #### [facility] [address] [place] [address] Dr. Carleen Underwood DRUG SCREEN RAPID (URINE)on 07-27-2022 AMP Negative Normal NEGATIVE [facility] Comment on above: Performed By: #### G TT3P #### [facility] [address] [place] [address] Dr. Carleen Underwood BAR Negative Normal NEGATIVE [facility] Comment on above: Performed By: #### G TT3P #### [facility] [address] [place] [address] Dr. Carleen Underwood BUP Negative Normal NEGATIVE [facility] Comment on above: Performed By: #### G TT3P #### [facility] [address] [address] [address] Carleen Underwood BZO Negative Normal NEGATIVE [facility] Comment on above: Performed By: #### G TT3P #### [facility] [address] [place] [address] Dr. Carleen Underwood EMIGDIO Negative Normal NEGATIVE [facility] Comment on above: Performed By: #### G TT3P #### [facility] [address] [place] [address] Dr. Carleen Underwood CUT-OFFS SEE BELOW Normal [facility] Comment on above: Result Comment: [...] ng/mL Performed By: #### G TT3P #### [facility] [address] [place] [address] Dr. Carleen Underwood DRUG CUT HEADER DRUG CLASS TEST SYST EM CUT-OFF CONCENTRATIONS ARE FOLLOWS: Normal [facility] Comment on above: Performed By: #### G TT3P #### [facility] [address] [place] [address] Dr. Carleen Underwood mAMP Negative Normal NEGATIVE [facility] Comment on above: Performed By: #### G TT3P #### [facility] [address] [place] [address] Dr. Carleen Underwood MTD Negative Normal NEGATIVE [facility] Comment on above: Performed By: #### G TT3P #### [facility] [address] [place] [address] Dr. Carleen Underwood OPI Negative Normal NEGATIVE [facility] Comment on above: Performed By: #### G TT3P #### [facility] [address] [place] [address] Dr. Carleen Underwood OXY Negative Normal NEGATIVE [facility] Comment on above: Performed By: #### G TT3P #### [facility] [address] [place] [address] Dr. Carleen Underwood PCP Negative Normal NEGATIVE [facility] Comment on above: Performed By: #### G TT3P #### [facility] [address] [address] [address] Carleen Underwood PPX Negative Normal NEGATIVE [facility] Comment on above: Performed By: #### G TT3P #### [facility] [address] [address] [address] Carleen Underwood TCA Negative Normal NEGATIVE [facility] Comment on above: Performed By: #### G TT3P #### [facility] [address] [address] [address] Carleen Underwood THC Negative Normal NEGATIVE [facility] Comment on above: Performed By: #### G TT3P #### [facility] [address] [address] [address] Carleen Underwood TYPE AND SCREENon 07-27-2022 TYPE AND SCREEN Negative Normal [facility] Comment on above: Performed By: #### G TT3P #### [facility] [address] [address] [address] Carleen Underwood US PREG AMNIOTIC FLUID [...] by: FOUZIA CALERO Date: 2022-07-12 16:24 Normal [facility] US PREG BIOPHY W NON [...] BRANDI ANN Date: 2022-07-09 16:35 Normal [facility] US PREG BIOPHY W NON STRESSo [...] FOUZIA CALERO Date: 2022-07-06 17:28 Normal [facility] GROUP B STREP CULTUREon 06-26 S. agalactiae Ag Ql (Unsp spec) Culture Observations: NEGATIVE FOR GROUP B STREPTOCOCCUS. Normal [facility] Comment on above: Performed By: #### G TT3P #### [facility] [address] [place] [address] Dr. Carleen Underwood US PREG GROWTHon 07-05-2022 [...] Marroquin was notified of these findings by vocational education teacher at time of imaging. 3. Biparietal diameter is at 8th percentile. Electronically authenticated by: FOUZIA CALERO Date: 2022-07-05 16:58 Normal [facility] US PREG GROWTHon 06-11-2022 US [...] by: FOUZIA CALERO Date: 2022-06-11 16:22 Normal [facility] PREG INCOMPLETE ANATOMYon 06-11-2022 US PREG [...] by: FOUZIA CALERO Date: 2022-06-11 16:20 Normal [facility] US PREG INCOMPLETE ANATOMYon 05-14-2022 [...] FOUZIA CALERO Date: 2022-05-14 17:15 Normal [facility] GTT 3 HR PREGon 04-24-2022 Glucose [Mass/Vol] 91 mg/dL Normal 74-106 [facility] Comment on above: Performed By: #### G TT3P #### [facility] [address] [address] [address] Carleen Underwood Glucose [Mass/Vol] 141 mg/dL Normal [facility] Comment on above: Performed By: #### G TT3P #### [facility] [address] [address] [address] Carleen Underwood Glucose [Mass/Vol] 103 mg/dL Normal [facility] Comment on above: Performed By: #### G TT3P #### [facility] [address] [address] [address] Carleen Underwood Glucose [Mass/Vol] 75 mg/dL Normal [facility] Comment on above: Performed By: #### G TT3P #### [facility] [address] [place] [address] Dr. Carleen Underwood US PREG INCOMPLETE ANATOMYon [...] os Normal ventricular outflow tracts Normal [facility] PAP ACOG PANEL 2: 30 to 65on 04-20-2022 . . Normal [facility] Comment on above: Result Comment: Perf ormed at: WB Performed By: #### [id number] #### [facility] [address] [place] [address] Dr. Carleen Underwood Age Gdln ACOG Testing 30-65 Normal [facility] Comment on above: Performed By: #### [id number] #### [facility] [address] [place] [address] Dr. Carleen Underwood DIAGNOSIS: Comment Normal [facility] Comment on above: Result Comment: NEGA TIVE FOR INTRAEPITHELIAL LESION OR MALIGNANCY. Performed at: WB Performed By: #### [id number] #### [facility] [address] [place] [address] Dr. Carleen Underwood HPV Aptima Negative Normal Negative [facility] Comment on above: Result Comment: This nucleic acid amplification test detects fourteen high-risk HPV types (16,18,31,33,35,39,45,51,52,56,58,59,66,68) without differentiation. Performed at: =G Performed By: #### [id number] #### [facility] [address] [place] [address] Dr. Carleen Underwood Methodology: Comment Normal [facility] Comment on above: Result Comment: This liquid based ThinPrep(R) pap test was screened with the use of an image guided system. Performed at: WB Performed By: #### [id number] #### [facility] [address] [place] [address] Dr. Carleen Underwood Note: Comment Normal [facility] Comment on above: Result Comment: The Pap smear is a screening test designed to aid in the detection of premalignant and malignant conditions of the uterine cervix. It is not a diagnostic procedure and should not be used as the sole means of detecting cervical cancer. Both false-positive and false-negative reports do occur. . Performed at: WB Performed By: #### [id number] #### [facility] [address] [place] [address] Dr. Carleen Underwood Performed by: Comment Normal [facility] Comment on above: Result Comment: Carol Aguilar, [employer] Performed at: WB Performed By: #### [id number] #### [facility] [address] [place] [address] Dr. Carleen Underwood Specimen adequacy: Comment Normal [facility] Comment on above: Result Comment: Sati sfactory for evaluation. No endocervical component is identified. Performed at: WB Performed By: #### [id number] #### [facility] [address] [place] [address] Dr. Carleen Underwood CHLAMYDIA/GONOCOCCUS HUY (SW AB/URINE/PAPon 04-19-2022 Chlamydia trachomatis, HUY Negative Normal Negative [facility] Comment on above: Performed By: #### H CVPCRR #### [facility] [address] [place] [address] Dr. Carleen Underwood Neisseria gonorrhoeae, HUY Negative Normal Negative [facility] Comment on above: Performed By: #### H CVPCRR #### [facility] [address] [place] [address] Dr. Carleen Underwood VAGINITIS/VAGINOSIS DNA PROB True 04-19-2022 Priya species Negative Normal Negative [facility] Comment on above: Performed By: #### G LU1HR #### [facility] [address] [place] [address] Dr. Carleen Underwood Gardnerella vaginalis Negative Normal Negative [facility] Comment on above: Performed By: #### G LU1HR #### [facility] [address] [place] [address] Dr. Carleen Underwood Trichomonas vaginalis Negative Normal Negative [facility] Comment on above: Performed By: #### G LU1HR #### [facility] [address] [place] [address] Dr. Carleen Underwood GLUCOSE - 1HRon 04-17-2022 Glucose [Mass/Vol] 150 mg/dL Critically high 74-106 [facility] Comment on above: Performed By: #### G LU1HR #### [facility] [address] [place] [address] Dr. Carleen Underwood HEMOGRAM AND PLATELon 2021 Hematocrit (Bld) [Volume fraction] 31.9 % Critically low 36.0-48.0 [facility] Comment on above: Performed By: #### H H #### [facility] [address] [place] [address] Dr. Carleen Underwood Hemoglobin (Bld) [Mass/Vol] 10.3 g/dL Critically low 12.0-16.0 [facility] Comment on above: Performed By: #### H H #### [facility] [address] [place] [address] Dr. Carleen Underwood MCH (RBC) [Entitic mass] 26.6 pg Critically low 26.7-34.0 [facility] Comment on above: Performed By: #### H H #### [facility] [address] [place] [address] Dr. Carleen Underwood MCHC (RBC) [Mass/Vol] 32.3 g/dL Normal 29.9-35.2 [facility] Comment on above: Performed By: #### H H #### [facility] [address] [place] [address] Dr. Carleen Underwood MCV (RBC) [Entitic vol] 82.4 fL Normal 81.0-99.0 [facility] Comment on above: Performed By: #### H H #### [facility] [address] [place] [address] Dr. Carleen Underwood PLT 233 103/ul Normal 150-450 [facility] Comment on above: Performed By: #### H H #### [facility] [address] [place] [address] Dr. Carleen Underwood RBC 3.87 106/ul Critically low 4.20-5.40 [facility] Comment on above: Performed By: #### H H #### [facility] [address] [place] [address] Dr. Carleen Underwood WBC 8.5 103/ul Normal 4.0-11.0 [facility] Comment on above: Performed By: #### H H #### [facility] [address] [place] [address] Dr. Carleen Underwood AFP MATERNAL FOR SPINA BIFID Aon 03-22-2022 AFP MoM 1.08 Normal [facility] Comment on above: Performed By: #### H CVPCRR #### [facility] [address] [address] [address] Carleen Underwood AFP Value 43.1 ng/mL Normal [facility] Comment on above: Performed By: #### H CVPCRR #### [facility] [address] [address] [address] Carleen Underwood AFP, Serum for Spina Bifida Report Normal [facility] Comment on above: Performed By: #### H CVPCRR #### [facility] [address] [address] [address] Carleen Underwood Comment Comment Normal [facility] Comment on above: Result Comment: Re Quick, Ph.D., [facility] Director . References: Available Upon Request. . Multiples Of Median Cutoffs For AFP Elevations Hopson 2.5 Black 2.8 IDD 2.0 Twins 4.5 Abbreviation Definitions IDD - Insulin Dep Diabetes OSBR - Open Spina Bifida Risk . For further inquiries contact [employer] [facility] at [phone]. . This test was developed and its performance characteristics determined by [employer]. It has not been cleared or approved by the Food and Drug Administration. Performed By: #### H CVPCRR #### [facility] [address] [place] [address] Dr. Carleen Marie Age Collection Date 19.4 weeks [facility] Comment on above: Performed By: #### H CVPCRR #### [facility] [address] [address] [address] Carleen Underwood Gestat, Age Based on LMP [facility] Comment on above: Result Comment: Reca lculations are not recommended when gestational dating by LMP and ultrasound are within 10 days. Performed By: #### H CVPCRR #### [facility] [address] [place] [address] Dr. Carleen Underwood Insulin Dep Diabetes No Normal [facility] Comment on above: Performed By: #### H CVPCRR #### [facility] [address] [address] [address] Carleen Underwood Interpretation Comment Normal [facility] Comment on above: Result Comment: [...] Customer Services to discuss available options. The [employer] recommends amniocentesis be offered to women age 35 and older. Performed By: #### H CVPCRR #### [facility] [address] [place] [address] Dr. Carleen Underwood [age] Normal [facility] Comment on above: Performed By: #### H CVPCRR #### [facility] [address] [place] [address] Dr. Carleen Underwood Multiple Gestation No Normal [facility] Comment on above: Performed By: #### H CVPCRR #### [facility] [address] [address] [address] Carleen Underwood OSBR Risk 1 IN 9540 Normal [facility] Comment on above: Performed By: #### H CVPCRR #### [facility] [address] [address] [address] Carleen Underwood PDF . Normal [facility] Comment on above: Performed By: #### H CVPCRR #### [facility] [address] [place] [address] Dr. Carleen Underwood Race Normal [facility] Comment on above: Performed By: #### H CVPCRR #### [facility] [address] [place] [address] Dr. Carleen Underwood Test Results: Negative Normal [facility] Comment on above: Performed By: #### H CVPCRR #### [facility] [address] [place] [address] Dr. Carleen Underwood US PREG ANATOMY SINGLEon [...] by: FOUZIA CALERO Date: 2022-03-19 17:04 Normal [facility] GLUCOSE - 1HRon 02-14-2022 Glucose [Mass/Vol] 107 mg/dL Critically high 74-106 T [facility] Comment on above: Performed By: #### H CVPCRR #### [facility] [address] [address] [address] Carleen Underwood HEP B SURFACE ANTIGEN SCREEN on 01-13-2022 HBsAg Screen Negative Normal Negative [facility] Comment on above: Performed By: #### H BSANS #### [facility] [address] [address] [address] Carleen Underwood HEPATITIS C VIRUS AB W/ REFL EX QUANTon 01-13-2022 HCV AB <0.1 Normal 0.0-0.9 [facility] Comment on above: Performed By: #### H CVPCRR #### [facility] [address] [place] [address] Dr. Carleen Underwood Interpretation: Comment Normal [facility] Comment on above: Result Comment: Nega tive Not infected with HCV, unless recent infection is suspected or other evidence exists to indicate HCV infection. Performed By: #### H CVPCRR #### [facility] [address] [place] [address] Dr. Carleen Underwood HIV 1 AND 2 WITH REFLEXon HIV Screen 4th Generation wRfx Non-Reactive Normal Non Reactive [facility] Comment on above: Result Comment: HIV Negative HIV-1/HIV-2 antibodies and HIV-1 p24 antigen were NOT detected. There is no laboratory evidence of HIV infection. Performed By: #### G LU1HR #### [facility] [address] [place] [address] Dr. Carleen Underwood RPR QUANTon 01-13-2022 Rapid Plasma Reagin, Quant Non-Reactive Normal NonRea<1:1 [facility] Comment on above: Result Comment: Dacia briones Note: This test does not meet current guidelines for screening and diagnosis of syphilis. This test is intended for following treatment response in patients being treated for syphilis infection. To screen for syphilis infection, a reflex cascade that includes both RPR and a treponema-specific assay should be utilized, such as Treponema pallidum (Syphilis) Screening Wirt (401029) or Rapid Plasma Reagin (RPR) Test With Reflex to Quantitative RPR and Confirmatory Treponema pallidum Antibodies (214366). Performed By: #### H CVPCRR #### [facility] [address] [place] [address] Dr. Carleen Underwood RUBELLA AB IGGon 01-13-2022 Rubella Antibodies, IgG 4.86 index Normal Immune >0.99 [facility] Comment on above: Result Comment: Non- immune <0.90 Equivocal 0.90 - 0.99 Immune >0.99 Performed By: #### R UBIGG #### [facility] [address] [place] [address] Dr. Carleen Underwood CBC AUTO DIFFon 01-12-2022 BASO # 0.0 103/ul Normal 0.0-0.1 [facility] Comment on above: Performed By: #### C BC #### [facility] [address] [place] [address] Dr. aCrleen Underwood Basophils/100 WBC (Bld) 0.4 % Normal 0.2-2.0 [facility] Comment on above: Performed By: #### C BC #### [facility] [address] [place] [address] Dr. Carleen Underwood EO # 0.1 103/ul Normal 0.0-0.7 [facility] Comment on above: Performed By: #### C BC #### [facility] [address] [place] [address] Dr. Carleen Underwood Eosinophils/100 WBC (Bld) 1.1 % Normal 0.9-7.0 [facility] Comment on above: Performed By: #### C BC #### [facility] [address] [place] [address] Dr. Carleen Underwood Erythrocyte distribution width (RBC) [Ratio] 14.5 % Normal 11.0-15.0 [facility] Comment on above: Performed By: #### C BC #### [facility] [address] [place] [address] Dr. Carleen Underwood Hematocrit (Bld) [Volume fraction] 35.8 % Critically low 36.0-48.0 [facility] Comment on above: Performed By: #### C BC #### [facility] [address] [place] [address] Dr. Carleen Underwood Hemoglobin (Bld) [Mass/Vol] 11.2 g/dL Critically low 12.0-16.0 [facility] Comment on above: Performed By: #### C BC #### [facility] [address] [place] [address] Dr. Carleen Underwood IG # 0.02 10e3/ul Normal 0.00-0.03 [facility] Comment on above: Performed By: #### C BC #### [facility] [address] [place] [address] Dr. Carleen Underwood IG % 0.4 % Normal 0.0-0.5 [facility] Comment on above: Performed By: #### C BC #### [facility] [address] [place] [address] Dr. Carleen Underwood LYMPH # 1.6 103/ul Normal 1.2-3.8 [facility] Comment on above: Performed By: #### C BC #### [facility] [address] [place] [address] Dr. Carleen Underwood Lymphocytes/100 WBC (Bld) 27.9 % Normal 20.5-60.0 [facility] Comment on above: Performed By: #### C BC #### [facility] [address] [place] [address] Dr. Carleen Underwood MANUAL DIFF REQ NO Normal [facility] Comment on above: Performed By: #### C BC #### [facility] [address] [place] [address] Dr. Carleen Underwood MCH (RBC) [Entitic mass] 26.1 pg Critically low 26.7-34.0 [facility] Comment on above: Performed By: #### C BC #### [facility] [address] [place] [address] Dr. Carleen Underwood MCHC (RBC) [Mass/Vol] 31.3 g/dL Normal 29.9-35.2 [facility] Comment on above: Performed By: #### C BC #### [facility] [address] [place] [address] Dr. Carleen Underwood MCV (RBC) [Entitic vol] 83.4 fL Normal 81.0-99.0 [facility] Comment on above: Performed By: #### C BC #### [facility] [address] [place] [address] Dr. Carleen Underwood MONO # 0.4 103/ul Normal 0.3-0.8 [facility] Comment on above: Performed By: #### C BC #### [facility] [address] [place] [address] Dr. Carleen Underwood Monocytes/100 WBC (Bld) 6.2 % Normal 1.7-12.0 [facility] Comment on above: Performed By: #### C BC #### [facility] [address] [place] [address] Dr. Carleen Underwood NEUT # 3.7 103/ul Normal 1.4-6.5 [facility] Comment on above: Performed By: #### C BC #### [facility] [address] [place] [address] Dr. Carleen Underwood Neutrophils/100 WBC (Bld) 64.0 % Normal 43.0-75.0 [facility] Comment on above: Performed By: #### C BC #### [facility] [address] [place] [address] Dr. Carleen Underwood Platelet mean volume (Bld) [Entitic vol] 10.3 fL Normal 9.5-13.5 [facility] Comment on above: Performed By: #### C BC #### [facility] [address] [place] [address] Dr. Carleen Underwood PLT 229 103/ul Normal 150-450 [facility] Comment on above: Performed By: #### C BC #### [facility] [address] [place] [address] Dr. Carleen Underwood RBC 4.29 106/ul Normal 4.20-5.40 [facility] Comment on above: Performed By: #### C BC #### [facility] [address] [place] [address] Dr. Carleen Underwood WBC 5.7 103/ul Normal 4.0-11.0 [facility] Comment on above: Performed By: #### C BC #### [facility] [address] [place] [address] Dr. Carleen Underwood CULTURE URINEon 01-12-2022 CULTURE URINE Culture Observations : LIGHT GROWTH OF MIXED GENITAL YULI. NO POTENTIAL PATHOGENS SEEN. Normal [facility] Comment on above: Performed By: #### U RCX #### [facility] [address] [place] [address] Dr. Carleen Underwood GLYCOHEMOGLOBIN A1Con 2021 ADA RECOMMENDATION SEE BELOW Normal [facility] Comment on above: Result Comment: ADA RECOMMENDED LIMIT 4.0 - 6.0 ADA THERAPEUTIC TARGET < 7.0 ACTION SUGGESTED > 7.0 Performed By: #### G LU1HR #### [facility] [address] [address] [address] Carleen Underwood Glucose [Mass/Vol] 100 mg/dL Normal [facility] Comment on above: Performed By: #### G LU1HR #### [facility] [address] [address] [address] Carleen Underwood HbA1c (Bld) [Mass fraction] 5.1 % Normal 4.5-6.2 [facility] Comment on above: Performed By: #### G LU1HR #### [facility] [address] [address] [address] Carleen Underwood EMILY BOX TEST PT SEND OUTo n 01-12-2022 SENT TO REF LAB 01/12/2022 Normal [facility] Comment on above: Performed By: #### H CVPCRR #### [facility] [address] [address] [address] Carleen Underwood TYPE AND SCREENon 01-12-2022 TYPE AND SCREEN Negative Normal [facility] Comment on above: Performed By: #### T NS #### [facility] [address] [place] [address] Dr. Carleen Underwood US PREG TVon 12-29-2021 [...] by: BRANDI ANN Date: 2021-12-29 16:07 Normal [facility] Coding Summary.on 02-12-2020 Coding Summary. CODING DATE: 020 [facility] STATUS: Home (Routine DC) PAYOR: Commercial [...] Saved: 02/12/2020 10:10 am Normal [facility] Physician Orderon 02-07-2020 Physician Order [id number] Normal [facility] Vital Signs Date Time Vital Sign Value Performing Clinician Facility 07-15-2023 13:00-0500 Body height 170.81 cm Chery Aranda Other [facility] Other 07-15-2023 13:00-0500 Body mass index (BMI) [Ratio] 39.95 kg/m2 Chery Aranda Other [facility] Other 07-15-2023 13:00-0500 Body weight 116.58 kg Chery Aranda Other [facility] Other 07-15-2023 13:00-0500 Diastolic blood pressure 74 mm[Hg] Chery Aranda Other [facility] Other 07-15-2023 13:00-0500 Systolic blood pressure 107 mm[Hg] Chery Aranda Other [facility] Other 06-14-2023 13:30-0400 Body height 170.81 cm Chery Aranda Other [facility] Other 06-14-2023 13:30-0400 Body mass index (BMI) [Ratio] 39.42 kg/m2 Chery Aranda Other [facility] Other 06-14-2023 13:30-0400 Body weight 115.03 kg Chery Aranda Other [facility] Other 06-14-2023 13:30-0400 Diastolic blood pressure 72 mm[Hg] Chery Aranda Other [facility] Other 06-14-2023 13:30-0400 Systolic blood pressure 118 mm[Hg] Chery Aranda Other [facility] Other 05-16-2023 13:00-0400 Body height 170.81 cm Chery Aranda Other [facility] Other 05-16-2023 13:00-0400 Body mass index (BMI) [Ratio] 40.1 kg/m2 Chery Aranda Other [facility] Other 05-16-2023 13:00-0400 Body weight 117.03 kg Chery Aranda Other [facility] Other 05-16-2023 13:00-0400 Diastolic blood pressure 67 mm[Hg] Chery Aranda Other [facility] Other 05-16-2023 13:00-0400 Systolic blood pressure 102 mm[Hg] Chery Aranda Other [facility] Other 04-15-2023 13:00-0400 Body height 170.81 cm Chery Aranda Other [facility] Other 04-15-2023 13:00-0400 Body mass index (BMI) [Ratio] 41.35 kg/m2 Chery Manoj Other [facility] Other 04-15-2023 13:00-0400 Body weight 120.66 kg Chery Aranda Other [facility] Other 04-15-2023 13:00-0400 Diastolic blood pressure 71 mm[Hg] Cherysimone Aranda Other [facility] Other 04-15-2023 13:00-0400 Systolic blood pressure 110 mm[Hg] Chery Manoj Other [facility] Other 03-22-2022 02:06-0400 Body weight 117.[address] PAZ WEST [facility] Comment on above: Performed By: #### HCVPCRR #### [facility] [address] [address] [address] Carleen Underwood Encounters Encounter Date Encounter Type Care Provider Facility Start: 01-13-2024 End: 01-13-2024 ambulatory EN [facility] [facility] Start: 01-11-2024 Evaluation and management of inpatient BRANDI Nixon [facility] Start: 01-08-2024 End: 01-08-2024 ambulatory FRIEDA MILLS Not Available Start: 12-25-2023 End: 12-25-2023 ambulatory DINH AYDE Not Available Start: 12-11-2023 End: 12-11-2023 ambulatory DINH AYDE Not Available Start: 11-27-2023 End: 11-27-2023 ambulatory FRIEDA MILLS Not Available Start: 11-13-2023 End: 11-13-2023 ambulatory DINH AYDE Not Available Start: 10-17-2023 End: 10-18-[address] [facility] Start: 10-16-2023 End: 10-16-2023 ambulatory DINH AYDE Not Available Start: 10-04-2023 Chart abstracting Chao Marmolejo MD Work Phone: Maternal- Medicine at [facility] Start: 09-18-2023 End: 09-18-2023 ambulatory FRIEDA MILLS Not Available Start: 08-20-2023 End: 08-20-2023 ambulatory DINH MARROQUIN Not Available Start: 07-26-2023 End: 07-26-2023 ambulatory DINH MARROQUIN Not Available Start: 07-15-2023 End: 07-15-2023 ambulatory Chery Aranda Other [employer] Other Start: 07-15-2023 Office outpatient vi sit 10 minutes Chery Aranda [facility] Start: 06-14-2023 End: 06-14-2023 ambulatory Chery Aranda Other [employer] Other Start: 06-14-2023 Office outpatient vi sit 10 minutes Chery Aranda [facility] Start: 05-16-2023 End: 05-16-2023 ambulatory Chery Aranda Other [employer] Other Start: 05-16-2023 Office outpatient vi sit 10 minutes Chery Aranda [facility] Start: 04-15-2023 End: 04-15-2023 ambulatory Chery Aranda Other [employer] Other Start: 04-15-2023 Office outpatient ne w 45 minutes Chery Aranda [facility] Start: 07-31-2022 End: 07-31-[address] [...] Start: 10-22-2023 End: 10-22-2023 Patient encounter procedure [facility] Start: 04-26-2023 Influenza vaccination Influenza Vacc ine [facility] Start: 2011 Screening for malign ant neoplasm of cervix Pap Smear [facility] Start: 2009 DTaP,Tdap and Td Vaccines (1 - Tdap) DTaP,Tdap and Td Vaccines (1 - Tdap) [facility] Start: 2008 Adult BMI Screening Adult BMI Screen ing [facility] Start: 2002 Depression Screening Depression Scre ening [facility] Start: 2002 Tobacco Screening Tobacco Screening [facility] Immunizations Immunization Date Immunization Notes Care Provider Fa cilidavid 09-08-2019 influenza virus vaccine, unspecified formulation Chao Ling MD Work Phone: [facility] Payers Date Payer Category Payer Private Health Insurance [employer] A ETNA POS [id number] 2017-Present [phone] [address] [place] [address] [id number] 2014 Private Health Insurance [id number] 1990 Unknown [id number] 2.840.1.186949.3.579.2.5 1990 Unknown [id number] 2..840.1.126098.3.579.2.5 1990 Unknown [id number] 2..840.1.655151.3.579.2.5 1990 Unknown [id number] 2.16.840.1.521982.3.579.2.5 1990 Unknown [id number] 2.16.840.1.838318.3.579.2.5 1990 Unknown [id number] 2.16.840.1.598279.3.579.2.5 93 1990 Unknown [id number] 2.16.840.1.092036.3.579.2.5 93 1990 Unknown [id number] 2.16.840.1.692274.3.579.2.5 93 1990 Unknown [id number] 2.16.840.1.777112.3.579.2.5 93 1990 Unknown [id number] 2.16.840.1.022283.3.579.2.5 93 1990 Unknown [id number] 2.16.840.1.771732.3.579.2.5 93 1990 Unknown [id number] 2.16.840.1.175506.3.579.2.5 93 1990 Unknown [id number] 2.16.840.1.275007.3.579.2.5 93 1990 Unknown [id number] 2.16.840.1.285635.3.579.2.5 93 1990 Unknown [id number] 2.16.840.1.126370.3.579.2.5 93 1990 Unknown [id number] 2.16.840.1.196655.3.579.2.5 93 1990 Unknown [id number] 2.16.840.1.584907.3.579.2.5 93 1990 Unknown [id number] 2.16.840.1.922777.3.579.2.5 93 1990 Unknown [id number] 2.16.840.1.007350.3.579.2.1 259 1990 Unknown [id number] 2.16.840.1.109916.3.579.2.1 259 1990 Unknown [id number] 2.16.840.1.667444.3.579.2.1 259 1990 Unknown [id number] 2.16.840.1.408926.3.579.2.1 259 1990 Unknown [id number] 2.16.840.1.415042.3.579.2.1 259 1990 Unknown [id number] 2.16.840.1.364304.3.579.2.1 259 1990 Unknown [id number] 2.16.840.1.064058.3.579.2.1 259 1990 Unknown [id number] 2.16.840.1.072427.3.579.2.1 259 1990 Unknown [id number] 2.16.840.1.032587.3.579.2.1 259 1990 Unknown [id number] 2.16.840.1.491921.3.579.2.1 286 1990 Unknown [id number] 2.16.840.1.751549.3.579.2.1 286 1959 Private Health Insurance [id number] 1959 Unknown [id number] Unknown [id number] 2.16.840.1.186435.3.579.2.5 93 Social History Date Type Detail Facility Unknown if ever smoked [employer] Other Start: 10-06-2020 End: 10-04-2023 Sex Assigned At [place] [employer] Other Start: 09-11-2019 Tobacco smoking stat [facility] Never smoked tobacco [facility] Start: 09-11-2019 Tobacco use and exposure Smokeless tobacco non-user [facility] Start: 10-04-2023 Alcohol intake Ex-drinker (finding) [facility] Start: 10-06-2020 End: 10-04-2023 History of Social function [facility] Childcare Unknown [facility] Start: 05-30-2023 [facility] Start: 1990 Sex Assigned At [facility] note 07-15-2023 Note Date & Type Note Facility 07-15-2023 Evaluation note Encounter Date Diagnosis Assessment Notes Jun, First trimester (ICD-10 - Z34.91) Continued followup w Dr. Marroquin. No further adipex. [employer] Other Evaluation note 06-14-2023 Note Date & [...] index [BMI] 39.0-39.9, adult (ICD-10 - Z68.39) [employer] Other Evaluation note 05-16-2023 Note Date & [...] index [BMI] 40.0-44.9, adult (ICD-10 - Z68.41) [employer] Other Evaluation note 04-15-2023 Note Date & [...] index [BMI] 40.0-44.9, adult (ICD-10 - Z68.41) [employer] Other History general Narrative - Reported Note Date & Type Note Facility History general Narrative - Reported Type Surgical History T & A 2010 Surgical History Gallbladder 2012 [employer] Other History general Narrative - Reported Note Date & Type Note Facility History general Narrative - Reported Type Surgical History T & A 2010 Surgical History Gallbladder 2013 Hospitalization History see surgical hx [employer] Other History general Narrative - Reported Note [...] Gallbladder 2012 Hospitalization History see surgical hx [employer] Other Instructions Note Date & Type Note Facility Instructions Not on filedocumented in this en counter [facility] Summary Purpose Family History No [...] section and content) DATE CREATED AUTHOR 03/11/2020 [facility] DATE CREATED AUTHOR AUTHOR'S ORGANIZ ATION 08/04/2022 [facility] DATE CREATED AUTHOR AUTHOR'S ORGANIZ ATION 01/08/2024 [facility] DATE CREATED AUTHOR AUTHOR'S ORGANIZ ATION 01/10/2024 [facility] EPIC DATE CREATED AUTHOR AUTHOR'S ORGANIZ ATION 01/13/2024 [facility] REASON FOR VISIT (unrecogniz ed section and content) ESTABLISH CARE1 month Follow up1 month Follow up1 month Follow up Care Teams (unrecognized sec tion and content) Director Of Online Education Relationship Specialty Start Date End Date En Osei, GARBAGE COLLECTOR-CLINICAL CODER [address] [address] PCP - General 12/29/16 FOR RECORDS PERTAINING [...] BE BASED ON THE PRIMARY CLINICAL RECORDS. [facility] provides no warranty or guarantee of the accuracy or completeness of information in this document.
--- NOTE | 2024-01-15 19:28 | ED_ITS ---
HPI HPI - General Adult General Chief complaint: Recheck/Abnormal Lab/Rx Stated complaint: HYPERTENSION Time Seen by Provider: 01/15/24 19:20 Source: patient and family Mode of arrival: walk-in Limitations: no limitations History of Present Illness HPI narrative: This 33-year-old female who had an emergency on Saturday due to preeclampsia presents for evaluation of elevated blood pressure. The patient was transferred to [facility] and was placed on magnesium. She had her C- section. Her baby is 33 weeks old. She was discharged earlier today. Her blood pressure had been stable while she was in the hospital and she was not discharged on any blood pressure medication. Dr. Marroquin is her SQL DATABASE ADMINISTRATOR and encouraged her to continue taking the labetalol that had been prescribed to her. She did take 1 today around 630. The patient and her were on their way to see their baby in the nursery in [place] when she suddenly felt irritable. She took her blood pressure and it was in the 170s over 100s. She denies any blurred vision, confusion. She has not had any slurred speech. She does not have a headache. She states she has felt dizzy since her delivery but this is unchanged. She has no focal weakness numbness or tingling. She denies any chest pain or shortness of breath. She has mild lower extremity edema which is unchanged. She is tearful because she has a in the NICU and was unable to take her home. This is her sixth and delivery and she denies that she has had preeclampsia during any of her other pregnancies. Related Data Home Medications ?Medication ?Instructions ?Recorded ?Confirmed sertraline 25 mg tablet mg 01/15/24 Previous Rx's ?Medication ?Instructions ?Recorded labetalol 200 mg tablet 200 mg PO BID 30 days #60 tabs 01/09/24 Allergies Allergy/AdvReac Type Severity Reaction Status Date / Time No Known Drug Allergies Allergy Verified 01/15/24 19:27 Opioid HPI Opioid Management Most Recent Opioid Data: No Data to Display Review of Systems ROS Status of ROS 10 or more systems reviewed and unremark able except as noted in history and below [facility] Surgical History (Updated 01/15/24 @ 19:30 by David Bains) History of ?Z98.891 - History of uterine scar from previous surgery (ICD-10) History of cholecystectomy ?Z90.49 - Acquired absence of other specified parts of digestive tract (ICD- 10) Exam Narrative Exam Narrative: Vital signs and Nursing Notes reviewed: She is afebrile with a normal pulse, blood pressure is elevated at 170/90, she is not hypoxic with pulse ox of 97% on room air General: Awake, alert, oriented, no acute distress, lying comfortably on the stretcher, tearful at times HEENT: Normocephalic atraumatic, mucous membranes are moist and pink, eyes are clear, normal conjunctiva, vision is grossly intact, funduscopic exam was performed and appears normal however her pupils were not dilated for the exam Neck: Supple, no meningeal signs, no anterior or posterior cervical lymphadenopathy Chest: Lungs are clear to auscultation with good air entry, there is no wheezing rhonchi or rales appreciated no accessory muscle use, patient is speaking in complete sentences-no chest wall tenderness to palpation CVS: Regular rate and rhythm S1-S2, no murmurs rubs or gallops, pulses are brisk and equal bilaterally ABD: Soft, nondistended, nontender, no rebound guarding or rigidity, bowel sounds are normal, no pulsatile masses appreciated Extremities: Moving all extremities, no lower extremity tenderness appreciated, 1+ lower extremity edema, negative Homans' sign, pulses are brisk and equal bilaterally Skin: Normal in appearance without rash,pallor, petechiae or purpura Neuro: No focal deficits Constitutional Vital Signs, click to edit/add: Last Vital Signs Temp 98.0 F 01/15/24 19:30 Pulse 81 01/15/24 22:00 Resp 01/15/24 22:00 BP 142/84 H 01/15/24 22:14 Pulse Ox 98 01/15/24 19:40 O2 Del Method Room Air 01/15/24 19:22 Course Vital Signs Vital signs: Vital Signs Blood Pressure 179/107 H 01/15/24 19:21 Temperature 98.0 F 01/15/24 19:30 Pulse Rate 81 01/15/24 22:00 Respiratory Rate 19 01/15/24 22:00 Blood Pressure 142/84 H 01/15/24 22:14 Pulse Oximetry 98 01/15/24 19:40 Oxygen Delivery Method Room Air 01/15/24 19:22 Medical Decision Making [facility] Narrative Medical decision making narrative: This 33-year-old female who had a emergency due to preeclampsia at 33 weeks in [place] after presenting to this hospital initially and being found to have preeclampsia and was discharged home after her blood pressure stabilized without recommendation for ongoing blood pressure medication but who is still taking labetalol prescribed by her SQL DATABASE ADMINISTRATOR, Dr. Marroquin presents for evaluation of elevated blood pressure. She is not having any headaches, visual disturbances or lower extremity swelling. She had taken 200 mg of oral labetalol prior to arrival her blood pressure was still in the 170s over 100. An IV was placed and she was medicated with gentle IV fluids and 10 mg of IV labetalol. Her blood pressure has consistently come down at the time of this dictation is 152/86 but she will be given an additional IV dose of 10 mg of labetalol. When she arrived she was extremely tearful and anxious. She has calmed down somewhat. I r eviewed her labs with her. She has a normal white count. She is anemic with a hemoglobin of 7.7 but not having any active bleeding. Her liver function tests are essentially normal and there is no protein in her urine. She was again relieved to hear this. Her repeat BP is 142/84 and she wishes to be discharged home. She has an appointment with Dr Marroquin in the morning and has po labetolol to take as prescribed by Dr Marroquin prior to her delivery. Lab Data Labs: Lab Results 01/15/24 01/15/24 Range/Units 19:45 20:25 WBC 7.9 (4.0-11.0) 10^3/uL RBC 3.22 L (4.20-5.40) 10^6/uL Hgb 7.7 L (12.0-16.0) g/dL Hct 25.7 L (36.0-48.0) % MCV 79.8 L (81.0-99.0) fL MCH 23.9 L (26.7-34.0) pg MCHC 30.0 (29.9-35.2) g/dL RDW 15.0 (11.0-15.0) % Plt Count 264 (150-450) 10^3/uL MPV 9.8 (9.5-13.5) fL Neut % (Auto) 55.6 (43.0-75.0) % Lymph % (Auto) 34.1 (20.5-60.0) % [place] % (Auto) 6.1 (1.7-12.0) % Eos % (Auto) 2.3 (0.9-7.0) % Baso % (Auto) 0.4 (0.2-2.0) % Neut # (Auto) 4.4 (1.4-6.5) 10^3/uL Lymph # (Auto) 2.7 (1.2-3.8) 10^3/uL [place] # (Auto) 0.5 (0.3-0.8) 10^3/uL Eos # (Auto) 0.2 (0.0-0.7) 10^3/uL Baso # (Auto) 0.0 (0.0-0.1) 10^3/uL Abs Immat Gran (auto) 0.12 H (0.00-0.03) 10^3/uL Imm/Tot Granulo (auto) 1.5 H (0.0-0.5) % Sodium 139 (136-145) mmol/L Potassium 4.5 (3.5-5.1) mmol/L Chloride 105 (98-107) mmol/L Carbon Dioxide 25.0 (21.0-32.0) mmol/L Anion Gap 13.5 BUN 12.0 (7.0-18.0) mg/dL Creatinine 0.56 (0.55-1.02) mg/dL Est GFR ( Amer) >60 (>=60) Est GFR (Non-Af Amer) >60 (>=60) BUN/Creatinine Ratio 21.4 Glucose 82 (74-106) mg/dL Calcium 9.1 (8.5-10.1) mg/dL Total Bilirubin 0.2 (0.2-1.0) mg/dL AST 38 H (15-37) U/L ALT 29 (14-59) U/L Alkaline Phosphatase 117 H (46-116) U/L Total Protein 6.5 (6.4-8.2) g/dL Albumin 2.2 L (3.4-5.0) g/dL Globulin 4.3 g/dL Albumin/Globulin Ratio 0.5 Urine Color Lt. yellow (YELLOW) Urine Clarity Clear (CLEAR) Urine pH 7.0 (5.0-9.0) Ur Specific [place] <=1.005 A (1.005-1.025) Urine Protein Negative (NEG/TRACE) mg/dL Urine Glucose (UA) Negative (NEGATIVE) mg/dL Urine Ketones Negative (NEGATIVE) mg/dL Urine Occult Blood Large A (NEGATIVE) Urine Nitrite Negative (NEGATIVE) Urine Bilirubin Negative (NEGATIVE) Urine Urobilinogen 0.2 (0.2-1.0) EU/dL Ur Leukocyte Esterase Negative (NEGATIVE) Urine RBC 10-20 A (0-2) #/HPF Urine WBC None seen (NONE SEEN) #/HPF Ur Squamous Epith Cells Rare (NONE/RARE) #/LPF Urine Crystals None seen (None Seen) #/HPF Urine Bacteria None seen (NONE SEEN) #/HPF Urine Casts None seen (NONE SEEN) #/LPF Urine Mucus None seen (NONE SEEN) Ur Culture Indicated? No ECG Data Attestation: I personally reviewed and interpreted this ECG as follows: (Normal sinus rhythm at 75 bpm, normal axis, normal intervals, no acute ST segment elevation or T wave inversion) Discharge Plan Discharge Stand Alone Forms: Portal Instructions Chief Complaint: Recheck/Abnormal Lab/Rx Clinical Impression: induced hypertension, Anemia Patient Disposition: Home, Self-Care Time of Disposition Decision: 22:23 Condition: Good Prescriptions / Home Meds: No Action labetalol 200 mg tablet 200 mg PO BID 30 Days Qty: 60 0RF sertraline 25 mg tablet Print Language: Nepali Instructions: Low-Sodium Diet (ED), Anemia (ED), Hypertension During (ED) Referrals: Chery Aranda MD [Primary Care Provider] - 1 week
--- NOTE | 2024-01-15 19:29 | ECG_ITS ---
[facility] Test Date: 2024-01-15 Pat Name: AYNETH BROWNLEE Department: Room: - Gender: Female Rn Family Practice: : 1990 Requested By: ANGELINA SHAFFER Order Number: [id number] Reading MD: ODALIS WOODRUFF Measurements Intervals [place] Rate: 75 P: 39 MA: 140 QRS: 66 QRSD: 76 T: 37 QT: 374 QTc: 403 Interpretive Statements 1100 Sinus rhythm 9110 normal ECG No previous ECG available for comparison Electronically Signed On 01-15-2024 22:20:01 EDT by ODALIS WOODRUFF
[2024-01-15] MEDS: 0.9 % SODIUM CHLORIDE 1,000 ML 125 ML IV (19:54)
[2024-01-15] MEDS: LABETALOL HCL 20 MG/4 ML SYRINGE 10 MG IVP ×2 (19:54→21:12)
[2024-01-15 19:57] LABS: Basophils Percent Auto 0.4 % (0.2-2.0); Eosinophils Absolute Auto 0.2 10^3/uL (0.0-0.7); Eosinophils Percent Auto 2.3 % (0.9-7.0); Hematocrit 25.7 % (36.0-48.0); Hemoglobin 7.7 g/dL (12.0-16.0); Immature Granulocytes Abs Auto 0.12 10^3/uL (0.00-0.03); Immature Granulocytes Pct Auto 1.5 % (0.0-0.5); Lymphocytes Absolute Auto 2.7 10^3/uL (1.2-3.8); Lymphocytes Percent Auto 34.1 % (20.5-60.0); Mean Corpuscular Hemoglobin 23.9 pg (26.7-34.0); Mean Corpuscular Volume 79.8 fL (81.0-99.0); Mean Platelet Volume 9.8 fL (9.5-13.5); Monocytes Absolute Auto 0.5 10^3/uL (0.3-0.8); Monocytes Percent Auto 6.1 % (1.7-12.0); Neutrophils Absolute Auto 4.4 10^3/uL (1.4-6.5); Neutrophils Percent Auto 55.6 % (43.0-75.0); Platelet Count 264 10^3/uL (150-450); Red Blood Count 3.22 10^6/uL (4.20-5.40); White Blood Count 7.9 10^3/uL (4.0-11.0)
[2024-01-15 20:11] LABS: Alanine Aminotransferase 29 U/L (14-59); Albumin Globulin Ratio 0.5; Albumin Level 2.2 g/dL (3.4-5.0); Alkaline Phosphatase 117 U/L (46-116); Anion Gap 13.5; Aspartate Amino Transferase 38 U/L (15-37); BUN Creatinine Ratio 21.4; Bilirubin Total 0.2 mg/dL (0.2-1.0); Calcium 9.1 mg/dL (8.5-10.1); Chloride 105 mmol/L (98-107); Estimated GFR (African America >60 (>=60); Estimated GFR (Non-African Ame >60 (>=60); Globulin 4.3 g/dL; Glucose 82 mg/dL (74-106); Potassium 4.5 mmol/L (3.5-5.1); Sodium 139 mmol/L (136-145); Total Protein 6.5 g/dL (6.4-8.2)
[2024-01-15 20:37] LABS: Bilirubin Urine NEGATIVE (NEGATIVE); Blood Urine LARGE (NEGATIVE); Clarity Urine CLEAR (CLEAR); Color Urine LT. YELLOW (YELLOW); Glucose Urine UA NEGATIVE (NEGATIVE); Ketones Urine NEGATIVE (NEGATIVE); Leukocyte Esterase Urine NEGATIVE (NEGATIVE); Nitrite Urine NEGATIVE (NEGATIVE); Protein Urine NEGATIVE (NEG/TRACE); Specific Gravity Urine <=1.005 (1.005-1.025); Urobilinogen Urine 0.2 EU/dL (0.2-1.0)
[2024-01-15 20:47] LABS: Bacteria Urine NONE SEEN #/HPF (NONE SEEN); Cast Seen? NONE SEEN #/LPF (NONE SEEN); Crystals Seen? None Seen #/HPF (None Seen); Mucus Urine NONE SEEN (NONE SEEN); Squamous Epithelial Cell Urine RARE #/LPF (NONE/RARE); Urine Culture Indicated NO; WBC Urine NONE SEEN #/HPF (NONE SEEN)
== END 2024-01-15 22:45 | disposition home or self-care (01) ==
PROVIDERS: Emergency Provider Emergency Medicine; PCP Family Medicine
DX: O16.5 Unspecified maternal hypertension, complicating the puerperium (principal); O90.81 Anemia of the puerperium; Z90.49 Acquired absence of other specified parts of digestive tract
CPT/HCPCS: 36415; 80053; 81001; 85025; 93005; 96374; 96376; 99285

== ENCOUNTER 2024-02-19 10:50 | Outpatient (OUT) | payer OTHER, SELFPAY ==
--- OUTSIDE RECORDS SUMMARY | 2024-02-19 11:07 | XMS_ITS | CCD ---
Author Organization [facility] Care Team Providers Care Catalytic Case Operator Name Role Phone WEST, DR BRANDI [...] LOPEZ, DR TAO Attending Unavailable REQUEST, DR EMERSON LISTED Primary Care Unavaila ble ZIEBER, DR FOUZIA Schilling Consulting Unavailable LOPEZ, DR TAO Consulting Unavailable LOPEZ, DR TAO Attending Unavailable LOPEZ, DR TAO Admitting Unavailable REQUEST, DR EMERSON LISTED Primary Care Unavaila ble ZIEBER, DR FOUZIA Schilling Consulting Unavailable LOPEZ, DR TAO Consulting Unavailable LOPEZ, DR TAO Attending Unavailable LOPEZ, DR TAO Admitting Unavailable REQUEST, DR EMERSON LISTED Primary Care Unavaila ble LOPEZ, DR TAO Consulting Unavailable LOPEZ, DR TAO Attending Unavailable LOPEZ, DR TAO Admitting Unavailable REQUEST, DR EMERSON LISTED Primary Care Unavaila ble AMY, YANET [...] TAO Admitting Unavailable Chery Aranda Unavailable Sea SAIL REPAIR PERSON-SILO OPERATOREn Primary Care Provider COLIN BOWLING Referring Unavailable LOPEZDINH Primary Care Unavailable BRANDI LAST Admitting Unavailable BRANDI LAST Attending Unavailable DEE DERAS Referring Unavailable OSEI, EN S Primary Care Unavailable FRANKO HEMPHILL Consulting Unavailable MOISES DORANTES Consulting Unavailable OSEI, EN S Referring Unavailable OSEI, EN S Primary Care Unavailable OSEI, EN S Primary Care Unavailable JAMESON LOERA Attending Unavailable JAMESON LOERA Referring Unavailable OSEI, EN S Primary Care Unavailable ZAHEER MATUTE Admitting Unavail able ZAHEER MATUTE Attending Unavail able OSEI, EN S Primary Care Unavailable LOPEZ, DINH Attending Unavailable GENE, FRIEDA Attending Unavailable LOPEZ, DINH Attending Unavailable LOPEZ, DINH Attending Unavailable GENE, FRIEDA Attending Unavailable LOPEZ, DINH Attending Unavailable LOPEZ, DINH Attending Unavailable GENE, FRIEDA Attending Unavailable GENE, FRIEDA Attending Unavailable LOPEZ, DINH Attending Unavailable LOPEZ, DINH Attending Unavailable LOPEZ, DINH Attending Unavailable Medications Current Medications Medication Drug [...] Active Start: 05-16-2023 take 1 capsule by [facility] every twenty-four hours Phentermine HCl 37.5 MG 1 capsule Orally Once a day for 30 days Apr, Active Start: 04-15-2023 take 1 capsule by [facility] every twenty-four hours Phentermine HCl 37.5 MG 1 capsule Orally Once a day for 30 days Mar, Active [id number] ac id 29 mg iron- 1 mg [...] Hypertension complicating ; childbirth and the puerperium (5 sources) Severe pre-eclampsia complicating childbirth; Translations: [Severe pre-eclampsia, third trimester] Onset: 01-11-2024 Episodic Menstrual disorders (4 sources) Irregular menstruation, unspecified; Translations: [IRREGULAR MENSTRUATION UNSPECIFIED] Onset: 01-12-2022 Chronic Other circulatory disease (1 source) Elevated blood-pressure reading, without diagnosis of hypertension; Translations: [Elevated blood-pressure reading, without diagnosis of hypertension] Onset: 01-17-2024 Episodic Other complications of ; puerperium affecting management of mother (1 source) Obesity complicating childbirth; Translations: [OBESITY COMPLICATING CHILDBIRTH] Onset: 08-03-2022 Chronic Other complications of ; puerperium affecting management of mother (1 source) Anemia complicating childbirth; Translations: [ANEMIA COMPLICATING CHILDBIRTH] Onset: 08-03-2022 Chronic Other complications of ; puerperium affecting management of mother (1 source) Encounter for delivery without indication; Translations: [Encounter for delivery without indication] Onset: 01-11-2024 Episodic Other complications of (1 source) Maternal obesity [...] Reference Range Facility CBC AND AUTO DIFFon 01-17-20 ABSOLUTE BASOPHIL 0.0 X10E9/L Normal 0.0-0.2 [facility] Comment on above: Performed By: #### C BCA, CMP, 2532-0, 3084-1, FEPR, 6-4, 00430-5 #### [facility] ([id number]) [address], [address] [place] [address] ABSOLUTE NEUTROPHIL 4.7 X10E9/L Normal 1.5-6.6 [facility] Comment on above: Performed By: #### C BCA, CMP, 2532-0, 3084-1, FEPR, 6-4, 50402-3 #### [facility] ([id number]) [address], [address] [place] [address] Basophils/100 WBC (Bld) 0.5 % Normal [facility] Comment on above: Performed By: #### C BCA, CMP, 2532-0, 3084-1, FEPR, 2276-4, 93352-8 #### [facility] ([id number]) [address], [address] [place] [address] Eosinophils (Bld) [#/Vol] 0.2 10*3/uL Normal 0.0-0.4 [facility] Comment on above: Performed By: #### C BCA, CMP, 2532-0, 3084-1, FEPR, 2276-4, 02426-0 #### [facility] ([id number]) [address], [address] [place] [address] Eosinophils/100 WBC (Bld) 2.0 % Normal [facility] Comment on above: Performed By: #### C BCA, CMP, 2532-0, 3084-1, FEPR, 6-4, 13568-5 #### [facility] ([id number]) [address] [address] Erythrocyte distribution width (RBC) [Ratio] 16.6 % High 11.5-15.0 [facility] Comment on above: Performed By: #### C BCA, CMP, 2532-0, 3084-1, FEPR, 6-4, 02403-2 #### [facility] ([id number]) [address] [address] [place] [address] Hematocrit (Bld) [Volume fraction] 24.4 % Low 35-47 [facility] Comment on above: Performed By: #### C BCA, CMP, 2532-0, 3084-1, FEPR, 6-4, 40084-8 #### [facility] ([id number]) [address] [address] [place] [address] Hemoglobin (Bld) [Mass/Vol] 7.9 g/dL Low 11.7-15.5 [facility] Comment on above: Performed By: #### C BCA, CMP, 2532-0, 3084-1, FEPR, 6-4, 29783-0 #### [facility] ([id number]) [address] [address] [place] [address] Lymphocytes (Bld) [#/Vol] 2.9 10*3/uL Normal 1.0-3.5 [facility] Comment on above: Performed By: #### C BCA, CMP, 2532-0, 3084-1, FEPR, 6-4, 63334-1 #### [facility] ([id number]) [address], [address] [place] [address] Lymphocytes/100 WBC (Bld) 34.8 % Normal [facility] Comment on above: Performed By: #### C BCA, CMP, 2532-0, 3084-1, FEPR, 6-4, 92438-2 #### [facility] ([id number]) [address], [facility] [address] [place] [address] MCH (RBC) [Entitic mass] 24.3 pg Low 27-34 [facility] Comment on above: Performed By: #### C BCA, CMP, 2532-0, 4-1, FEPR, 6-4, 67119-2 #### [facility] ([id number]) [address], [address] [place] [address] MCHC (RBC) [Mass/Vol] 32.4 g/dL Normal 32-36 [facility] Comment on above: Performed By: #### C BCA, CMP, 2532-0, 4-1, FEPR, 6-4, 62679-1 #### [facility] ([id number]) [address], [address] [place] [address] MCV (RBC) [Entitic vol] 75 fL Low 80-100 [facility] Comment on above: Performed By: #### C BCA, CMP, 2532-0, 3084-1, FEPR, 6-4, 24161-6 #### [facility] ([id number]) [address], [address] [place] [address] Monocytes (Bld) [#/Vol] 0.5 10*3/uL Normal 0-0.9 [facility] Comment on above: Performed By: #### C BCA, CMP, 2532-0, 3084-1, FEPR, 2276-4, 78833-7 #### [facility] ([id number]) [address], [address] [place] [address] Monocytes/100 WBC (Bld) 5.7 % Normal [facility] Comment on above: Performed By: #### C BCA, CMP, 2532-0, 3084-1, FEPR, 2276-4, 99046-4 #### [facility] ([id number]) [address], [facility] [address] [place] [address] Neutrophils/100 WBC (Bld) 57.0 % Normal [facility] Comment on above: Performed By: #### C BCA, CMP, 2532-0, 3084-1, FEPR, 2276-4, 78901-0 #### [facility] ([id number]) [address], [address] [place] [address] Platelet mean volume (Bld) [Entitic vol] 7.4 fL Normal 7-12 [facility] Comment on above: Performed By: #### C BCA, CMP, 2532-0, 3084-1, FEPR, 2276-4, 62816-0 #### [facility] ([id number]) [address], [address] [address] Platelets (Bld) [#/Vol] 315 10*3/uL Normal 150-450 [facility] Comment on above: Performed By: #### C BCA, CMP, 2532-0, 3084-1, FEPR, 2276-4, 50335-7 #### [facility] ([id number]) [address], [facility] [address] [place] [address] RBC COUNT 3.25 X10E12/L Low 3.80-5.20 [facility] Comment on above: Performed By: #### C BCA, CMP, 2532-0, 3084-1, FEPR, 2276-4, 53003-1 #### [facility] ([id number]) [address], [address] [place] [address] WBC (Bld) [#/Vol] 8.3 10*3/uL Normal 4.0-11.0 [facility] Comment on above: Performed By: #### C BCA, CMP, 2532-0, 3084-1, FEPR, 2276-4, 49190-8 #### [facility] ([id number]) [address], [address] [place] [address] COMPREHENSIVE METABOLIC PANE Vinay 01-17-2024 Albumin [Mass/Vol] 3.4 g/dL Normal 3.2-5.3 [facility] Comment on above: Performed By: #### C BCA, CMP, 2532-0, 3084-1, FEPR, 2276-4, 82435-2 #### [facility] ([id number]) [address], [address] [place] [address] ALP [Catalytic activity/Vol] 96 U/L Normal 39-130 [facility] Comment on above: Performed By: #### C BCA, CMP, 2532-0, 3084-1, FEPR, 2276-4, 45228-2 #### [facility] ([id number]) [address], [address] [place] [address] ALT [Catalytic activity/Vol] 18 U/L Normal 0-31 [facility] Comment on above: Performed By: #### C BCA, CMP, 2532-0, 3084-1, FEPR, 2276-4, 28266-9 #### [facility] ([id number]) [address], [address] [place] [address] Anion gap [Moles/Vol] 11 mmol/L Normal 5-15 [facility] Comment on above: Performed By: #### C BCA, CMP, 2532-0, 3084-1, FEPR, 2276-4, 63601-2 #### [facility] ([id number]) [address], [address] [place] [address] AST [Catalytic activity/Vol] 18 U/L Normal 0-41 [facility] Comment on above: Performed By: #### C BCA, CMP, 2532-0, 3084-1, FEPR, 2276-4, 44546-5 #### [facility] ([id number]) [address], [address] [place] [address] Bilirubin [Mass/Vol] 0.3 mg/dL Normal 0.3-1.2 [facility] Comment on above: Performed By: #### C BCA, CMP, 2532-0, 3084-1, FEPR, 2276-4, 43323-5 #### [facility] ([id number]) [address], [address] [place] [address] Calcium [Mass/Vol] 9.5 mg/dL Normal 8.5-10.5 [facility] Comment on above: Performed By: #### C BCA, CMP, 2532-0, 3084-1, FEPR, 2276-4, 08944-3 #### [facility] ([id number]) [address], [address] [place] [address] Chloride [Moles/Vol] 105 mmol/L Normal 98-109 [facility] Comment on above: Performed By: #### C BCA, CMP, 2532-0, 3084-1, FEPR, 2276-4, 59714-5 #### [facility] ([id number]) [address], [address] [place] [address] CO2 [Moles/Vol] 24 mmol/L Normal 22-32 [facility] Comment on above: Performed By: #### C BCA, CMP, 2532-0, 3084-1, FEPR, 2276-4, 92996-2 #### [facility] ([id number]) [address], [address] [place] [address] Creatinine [Mass/Vol] 0.53 mg/dL Normal 0.40-1.00 [facility] Comment on above: Result Comment: METH OD TRACEABLE TO IDMS STANDARD Performed By: #### C BCA, CMP, 2532-0, 3084-1, FEPR, 2276-4, 75014-9 #### [facility] ([id number]) [address], [address] [place] [address] eGFR (CKD-EPI) NON-RACE DEPENDENT >90 Normal >59 [facility] Comment on above: Result Comment: Reported eGFR is based on the CKD-EPI 2020 equation that does not use a race coefficient. Performed By: #### C BCA, CMP, 2532-0, 3084-1, FEPR, 2276-4, 75228-3 #### [facility] ([id number]) [address], [address] [place] [address] Glucose [Mass/Vol] 86 mg/dL Normal 65-99 [facility] Comment on above: Performed By: #### C BCA, CMP, 2532-0, 3084-1, FEPR, 2276-4, 26602-6 #### [facility] ([id number]) [address], [address] [place] [address] Potassium [Moles/Vol] 4.4 mmol/L Normal 3.5-5.0 [facility] Comment on above: Performed By: #### C BCA, CMP, 2532-0, 3084-1, FEPR, 2276-4, 89854-4 #### [facility] ([id number]) [address], [address] [place] [address] Protein [Mass/Vol] 6.5 g/dL Normal 6.0-8.0 [facility] Comment on above: Performed By: #### C BCA, CMP, 2532-0, 3084-1, FEPR, 2276-4, 09089-3 #### [facility] ([id number]) [address], [address] [place] [address] Sodium [Moles/Vol] 140 mmol/L Normal 134-146 [facility] Comment on above: Performed By: #### C BCA, CMP, 2532-0, 3084-1, FEPR, 6-4, 87010-2 #### [facility] ([id number]) [address], [address] [place] [address] Urea nitrogen [Mass/Vol] 11 mg/dL Normal 5-23 [facility] Comment on above: Performed By: #### C BCA, CMP, 2532-0, 3084-1, FEPR, 6-4, 62329-5 #### [facility] ([id number]) [address], [address] [place] [address] DRUG SCREEN, URINEon 024 AMPHETAMINE/METHAMP Negative Normal NEG [facility] Comment on above: Result Comment: AMPH /METH screening cut off = 1000 ng/mL Performed By: #### C BCA, CMP, 2532-0, 3084-1, FEPR, 6-4, 31415-3 #### [facility] ([id number]) [address], [address] [place] [address] BARBITURATES Negative Normal NEG [facility] Comment on above: Result Comment: Sol iturates screening cut off value = 200 ng/mL Performed By: #### C BCA, CMP, 2532-0, 3084-1, FEPR, 6-4, 17551-9 #### [facility] ([id number]) [address], [address] [place] [address] BENZODIAZEPINES Negative Normal NEG [facility] Comment on above: Result Comment: Laci odiazepines screening cut off value = 200 ng/mL Performed By: #### C BCA, CMP, 2532-0, 3084-1, FEPR, 2276-4, 28663-5 #### [facility] ([id number]) [address], [address] [place] [address] CANNABINOIDS Negative Normal NEG [facility] Comment on above: Result Comment: Neno abinoids/THC screening cut off value = 50 ng/mL Performed By: #### C BCA, CMP, 2532-0, 3084-1, FEPR, 2276-4, 53653-5 #### [facility] ([id number]) [address], [address] [place] [address] COCAINE METABOLITE Negative Normal NEG [facility] Comment on above: Result Comment: Coca ine screening cut off value = 300 ng/mL Performed By: #### C BCA, CMP, 2532-0, 3084-1, FEPR, 6-4, 90359-8 #### [facility] ([id number]) [address], [address] [place] [address] ECSTASY Positive Abnormal NEG [facility] Comment on above: Result Comment: Inte rference from Buproprion or Labetalol may cause a positive result, confirmation available upon request. Ecstasy screening cut off value = 500 ng/mL This report is intended for use in clinical monitoring or management of patients. Performed By: #### C BCA, CMP, 2532-0, 3084-1, FEPR, 6-4, 18480-0 #### [facility] ([id number]) [address], [address] [place] [address] METHADONE Negative Normal NEG [facility] Comment on above: Result Comment: Meth adone screening cut off value = 300 ng/mL. Performed By: #### C BCA, CMP, 2532-0, 3084-1, FEPR, 2276-4, 26813-0 #### [facility] ([id number]) [address], [address] [place] [address] OPIATES Negative Normal NEG [facility] Comment on above: Result Comment: Opia ermias screening cut off value = 300 ng/mL NOTE: This test is used for the detection of codeine, hydrocodone (>1000 ng/mL), morphine and hydromorphone (>900 ng/mL) in urine. Performed By: #### C BCA, CMP, 2532-0, 3084-1, FEPR, 2276-4, 75761-3 #### [facility] ([id number]) [address], [address] [place] [address] OXYCODONE Negative Normal NEG [facility] Comment on above: Result Comment: Oxyc odone screening cut off value = 300 ng/mL NOTE: This test is used for the detection of oxycodone and oxymorphone in urine. Performed By: #### C BCA, CMP, 2532-0, 3084-1, FEPR, 2276-4, 49121-0 #### [facility] ([id number]) [address], [address] [place] [address] PHENCYCLIDINE Negative Normal NEG [facility] Comment on above: Result Comment: Phen cyclidine screening cut off value = 25 ng/mL Performed By: #### C BCA, CMP, 2532-0, 3084-1, FEPR, 2276-4, 11751-3 #### [facility] ([id number]) [address] [facility], [address] [place] [address] LDH [Catalytic activity/Vol] on 01-17-2024 LDH 167 U/L Normal 100-235 [facility] Comment on above: Performed By: #### C BCA, CMP, 2532-0, 3084-1, FEPR, 2276-4, 75366-3 #### [facility] ([id number]) [address], [address] [place] [address] URIC ACIDon 01-17-2024 Urate [Mass/Vol] 7.1 mg/dL Normal 2.6-7.2 [facility] Comment on above: Performed By: #### C BCA, CMP, 2532-0, 3084-1, FEPR, 2276-4, 68354-9 #### [facility] ([id number]) [address], [address] [place] [address] CBC AND AUTO DIFFon 01-14-20 24 ABSOLUTE BASOPHIL 0.0 X10E9/L Normal 0.0-0.2 [facility] Comment on above: Performed By: #### C BCA, CMP, 2532-0, 3084-1, FEPR, 2276-4, 05023-0 #### [facility] ([id number]) [address], [address] [place] [address] ABSOLUTE NEUTROPHIL 6.9 X10E9/L High 1.5-6.6 [facility] Comment on above: Performed By: #### C BCA, CMP, 2532-0, 3084-1, FEPR, 6-4, 46492-0 #### [facility] ([id number]) [address], [address] [place] [address] Basophils/100 WBC (Bld) 0.3 % Normal [facility] Comment on above: Performed By: #### C BCA, CMP, 2532-0, 3084-1, FEPR, 6-4, 46030-3 #### [facility] ([id number]) [address], [address] [place] [address] Eosinophils (Bld) [#/Vol] 0.1 10*3/uL Normal 0.0-0.4 [facility] Comment on above: Performed By: #### C BCA, CMP, 2532-0, 3084-1, FEPR, 2276-4, 05201-6 #### [facility] ([id number]) [address], [address] [place] [address] Eosinophils/100 WBC (Bld) 0.6 % Normal [facility] Comment on above: Performed By: #### C BCA, CMP, 2532-0, 3084-1, FEPR, 2276-4, 08818-5 #### [facility] ([id number]) [address] [address] [place] [address] Erythrocyte distribution width (RBC) [Ratio] 15.4 % High 11.5-15.0 [facility] Comment on above: Performed By: #### C BCA, CMP, 2532-0, 3084-1, FEPR, 2276-4, 71853-6 #### [facility] ([id number]) [address] [address] Hematocrit (Bld) [Volume fraction] 24.4 % Low 35-47 [facility] Comment on above: Performed By: #### C BCA, CMP, 2532-0, 4-1, FEPR, 6-4, 77584-5 #### [facility] ([id number]) [address] [address] Hemoglobin (Bld) [Mass/Vol] 7.9 g/dL Low 11.7-15.5 [facility] Comment on above: Performed By: #### C BCA, CMP, 2532-0, 4-1, FEPR, 6-4, 13268-2 #### [facility] ([id number]) [address] [address] Lymphocytes (Bld) [#/Vol] 2.2 10*3/uL Normal 1.0-3.5 [facility] Comment on above: Performed By: #### C BCA, CMP, 2532-0, 3084-1, FEPR, 2276-4, 34518-7 #### [facility] ([id number]) [address] [address] Lymphocytes/100 WBC (Bld) 22.2 % Normal [facility] Comment on above: Performed By: #### C BCA, CMP, 2532-0, 3084-1, FEPR, 2276-4, 40987-7 #### [facility] ([id number]) [address], [address] [place] [address] MCH (RBC) [Entitic mass] 24.4 pg Low 27-34 [facility] Comment on above: Performed By: #### C BCA, CMP, 2532-0, 3084-1, FEPR, 6-4, 10486-7 #### [facility] ([id number]) [address], [address] [place] [address] MCHC (RBC) [Mass/Vol] 32.6 g/dL Normal 32-36 [facility] Comment on above: Performed By: #### C BCA, CMP, 2532-0, 3084-1, FEPR, 6-4, 63628-4 #### [facility] ([id number]) [address], [address] [place] [address] MCV (RBC) [Entitic vol] 75 fL Low 80-100 [facility] Comment on above: Performed By: #### C BCA, CMP, 2532-0, 3084-1, FEPR, 2275-4, 15664-2 #### [facility] ([id number]) [address], [facility] [address] [place] [address] Monocytes (Bld) [#/Vol] 0.6 10*3/uL Normal 0-0.9 [facility] Comment on above: Performed By: #### C BCA, CMP, 2532-0, 3084-1, FEPR, 6-4, 29933-2 #### [facility] ([id number]) [address], [address] [place] [address] Monocytes/100 WBC (Bld) 6.0 % Normal [facility] Comment on above: Performed By: #### C BCA, CMP, 2532-0, 3084-1, FEPR, 6-4, 38175-9 #### [facility] ([id number]) [address], [address] [place] [address] Neutrophils/100 WBC (Bld) 70.9 % Normal [facility] Comment on above: Performed By: #### C BCA, CMP, 2532-0, 3084-1, FEPR, 2276-4, 97638-6 #### [facility] ([id number]) [address], [address] [place] [address] Platelet mean volume (Bld) [Entitic vol] 8.8 fL Normal 7-12 [facility] Comment on above: Performed By: #### C BCA, CMP, 2532-0, 3084-1, FEPR, 6-4, 43940-2 #### [facility] ([id number]) [address], [address] [place] [address] Platelets (Bld) [#/Vol] 217 10*3/uL Normal 150-450 [facility] Comment on above: Performed By: #### C BCA, CMP, 2532-0, 3084-1, FEPR, 6-4, 21473-4 #### [facility] ([id number]) [address], [facility] [address] [place] [address] RBC COUNT 3.25 X10E12/L Low 3.80-5.20 [facility] Comment on above: Performed By: #### C BCA, CMP, 2532-0, 3084-1, FEPR, 2276-4, 81811-8 #### [facility] ([id number]) [address], [address] [place] [address] WBC (Bld) [#/Vol] 9.8 10*3/uL Normal 4.0-11.0 [facility] Comment on above: Performed By: #### C BCA, CMP, 2532-0, 3084-1, FEPR, 2276-4, 24760-5 #### [facility] ([id number]) [address], [address] [place] [address] COMPREHENSIVE METABOLIC PANE Vinay 01-14-2024 Albumin [Mass/Vol] 2.7 g/dL Low 3.2-5.3 [facility] Comment on above: Performed By: #### C BCA, CMP, 2532-0, 3084-1, FEPR, 2276-4, 47578-6 #### [facility] ([id number]) [address], [address] [place] [address] ALP [Catalytic activity/Vol] 124 U/L Normal 39-130 [facility] Comment on above: Performed By: #### C BCA, CMP, 2532-0, 3084-1, FEPR, 2276-4, 36092-6 #### [facility] ([id number]) [address], [address] [place] [address] ALT [Catalytic activity/Vol] 9 U/L Normal 0-31 [facility] Comment on above: Performed By: #### C BCA, CMP, 2532-0, 3084-1, FEPR, 2276-4, 99654-7 #### [facility] ([id number]) [address], [address] [place] [address] Anion gap [Moles/Vol] 8 mmol/L Normal 5-15 [facility] Comment on above: Performed By: #### C BCA, CMP, 2532-0, 3084-1, FEPR, 2276-4, 87697-8 #### [facility] ([id number]) [address], [address] [place] [address] AST [Catalytic activity/Vol] 12 U/L Normal 0-41 [facility] Comment on above: Performed By: #### C BCA, CMP, 2532-0, 3084-1, FEPR, 2276-4, 41637-3 #### [facility] ([id number]) [address], [address] [place] [address] Bilirubin [Mass/Vol] 0.2 mg/dL Low 0.3-1.2 [facility] Comment on above: Performed By: #### C BCA, CMP, 2532-0, 3084-1, FEPR, 2276-4, 06462-6 #### [facility] ([id number]) [address], [address] [place] [address] Calcium [Mass/Vol] 7.0 mg/dL Low 8.5-10.5 [facility] Comment on above: Performed By: #### C BCA, CMP, 2532-0, 3084-1, FEPR, 2276-4, 83628-0 #### [facility] ([id number]) [address], [address] [place] [address] Chloride [Moles/Vol] 104 mmol/L Normal 98-109 [facility] Comment on above: Performed By: #### C BCA, CMP, 2532-0, 3084-1, FEPR, 2276-4, 63980-5 #### [facility] ([id number]) [address], [address] [place] [address] CO2 [Moles/Vol] 26 mmol/L Normal 22-32 [facility] Comment on above: Performed By: #### C BCA, CMP, 2532-0, 3084-1, FEPR, 2276-4, 13912-2 #### [facility] ([id number]) [address], [address] [place] [address] Creatinine [Mass/Vol] 0.66 mg/dL Normal 0.40-1.00 [facility] Comment on above: Result Comment: METH OD TRACEABLE TO IDMS STANDARD Performed By: #### C BCA, CMP, 2532-0, 3084-1, FEPR, 2276-4, 09254-5 #### [facility] ([id number]) [address], [address] [place] [address] eGFR (CKD-EPI) NON-RACE DEPENDENT >90 Normal >59 [facility] Comment on above: Result Comment: Reported eGFR is based on the CKD-EPI 2020 equation that does not use a race coefficient. Performed By: #### C BCA, CMP, 2532-0, 3084-1, FEPR, 2276-4, 51025-9 #### [facility] ([id number]) [address], [facility] [address] [place] [address] Glucose [Mass/Vol] 68 mg/dL Normal 65-99 [facility] Comment on above: Performed By: #### C BCA, CMP, 2532-0, 3084-1, FEPR, 2276-4, 88973-4 #### [facility] ([id number]) [address] [address] Potassium [Moles/Vol] 4.0 mmol/L Normal 3.5-5.0 [facility] Comment on above: Performed By: #### C BCA, CMP, 2532-0, 3084-1, FEPR, 2276-4, 61321-6 #### [facility] ([id number]) [address] [address] Protein [Mass/Vol] 5.7 g/dL Low 6.0-8.0 [facility] Comment on above: Performed By: #### C BCA, CMP, 2532-0, 3084-1, FEPR, 2276-4, 24093-9 #### [facility] ([id number]) [address] [address] [place] [address] Sodium [Moles/Vol] 138 mmol/L Normal 134-146 [facility] Comment on above: Performed By: #### C BCA, CMP, 2532-0, 3084-1, FEPR, 2276-4, 08566-7 #### [facility] ([id number]) [address], [address] [place] [address] Urea nitrogen [Mass/Vol] 14 mg/dL Normal 5-23 [facility] Comment on above: Performed By: #### C BCA, CMP, 2532-0, 3084-1, FEPR, 2276-4, 06052-8 #### [facility] ([id number]) [address], [facility] [address] [place] [address] CBC AND AUTO DIFFon 05-20-20 24 ABSOLUTE BASOPHIL 0.0 X10E9/L Normal 0.0-0.2 [facility] Comment on above: Performed By: #### C BCA, CMP, 2532-0, 4-1, FEPR, 6-4, 74559-0 #### [facility] ([id number]) [address] [address] [place] [address] ABSOLUTE NEUTROPHIL 7.6 X10E9/L High 1.5-6.6 [facility] Comment on above: Performed By: #### C BCA, CMP, 2532-0, 3084-1, FEPR, 6-4, 98144-0 #### [facility] ([id number]) [address] [address] Basophils/100 WBC (Bld) 0.3 % Normal [facility] Comment on above: Performed By: #### C BCA, CMP, 2532-0, 3084-1, FEPR, 6-4, 89046-2 #### [facility] ([id number]) [address] [address] [place] [address] Eosinophils (Bld) [#/Vol] 0.0 10*3/uL Normal 0.0-0.4 [facility] Comment on above: Performed By: #### C BCA, CMP, 2532-0, 3084-1, FEPR, 2276-4, 58582-1 #### [facility] ([id number]) [address] [address] Eosinophils/100 WBC (Bld) 0.1 % Normal [facility] Comment on above: Performed By: #### C BCA, CMP, 2532-0, 3084-1, FEPR, 2276-4, 95913-8 #### [facility] ([id number]) [address] [address] Erythrocyte distribution width (RBC) [Ratio] 15.2 % High 11.5-15.0 [facility] Comment on above: Performed By: #### C BCA, CMP, 2532-0, 3084-1, FEPR, 2276-4, 14916-7 #### [facility] ([id number]) [address] [address] Hematocrit (Bld) [Volume fraction] 23.2 % Low 35-47 [facility] Comment on above: Performed By: #### C BCA, CMP, 2532-0, 3084-1, FEPR, 6-4, 20776-0 #### [facility] ([id number]) [address] [address] Hemoglobin (Bld) [Mass/Vol] 7.8 g/dL Low 11.7-15.5 [facility] Comment on above: Performed By: #### C BCA, CMP, 2532-0, 3084-1, FEPR, 2276-4, 60253-0 #### [facility] ([id number]) [address] [address] Lymphocytes (Bld) [#/Vol] 1.9 10*3/uL Normal 1.0-3.5 [facility] Comment on above: Performed By: #### C BCA, CMP, 2532-0, 3084-1, FEPR, 2276-4, 71662-3 #### [facility] ([id number]) [address] [place] [address] Lymphocytes/100 WBC (Bld) 18.8 % Normal [facility] Comment on above: Performed By: #### C BCA, CMP, 2532-0, 3084-1, FEPR, 2276-4, 19731-5 #### [facility] ([id number]) [address] [address] [place] [address] MCH (RBC) [Entitic mass] 25.1 pg Low 27-34 [facility] Comment on above: Performed By: #### C BCA, CMP, 2532-0, 3084-1, FEPR, 6-4, 62695-5 #### [facility] ([id number]) [address] [address] MCHC (RBC) [Mass/Vol] 33.8 g/dL Normal 32-36 [facility] Comment on above: Performed By: #### C BCA, CMP, 2532-0, 3084-1, FEPR, 6-4, 47923-8 #### [facility] ([id number]) [address] [address] MCV (RBC) [Entitic vol] 74 fL Low 80-100 [facility] Comment on above: Performed By: #### C BCA, CMP, 2532-0, 4-1, FEPR, 6-4, 36767-8 #### [facility] ([id number]) [address] [address] Monocytes (Bld) [#/Vol] 0.7 10*3/uL Normal 0-0.9 [facility] Comment on above: Performed By: #### C BCA, CMP, 2532-0, 3084-1, FEPR, 2276-4, 98177-3 #### [facility] ([id number]) [address] [address] [place] [address] Monocytes/100 WBC (Bld) 6.7 % Normal [facility] Comment on above: Performed By: #### C BCA, CMP, 2532-0, 3084-1, FEPR, 2276-4, 43881-5 #### [facility] ([id number]) [address], [address] [place] [address] Neutrophils/100 WBC (Bld) 74.1 % Normal [facility] Comment on above: Performed By: #### C BCA, CMP, 2532-0, 3084-1, FEPR, 2276-4, 79381-9 #### [facility] ([id number]) [address], [facility] [address] [place] [address] Platelet mean volume (Bld) [Entitic vol] 9.2 fL Normal 7-12 [facility] Comment on above: Performed By: #### C BCA, CMP, 2532-0, 3084-1, FEPR, 2276-4, 81885-8 #### [facility] ([id number]) [address], [address] [place] [address] Platelets (Bld) [#/Vol] 177 10*3/uL Normal 150-450 [facility] Comment on above: Performed By: #### C BCA, CMP, 2532-0, 3084-1, FEPR, 2276-4, 55878-9 #### [facility] ([id number]) [address], [address] [place] [address] RBC COUNT 3.13 X10E12/L Low 3.80-5.20 [facility] Comment on above: Performed By: #### C BCA, CMP, 2532-0, 3084-1, FEPR, 2276-4, 09668-8 #### [facility] ([id number]) [address], [address] [place] [address] WBC (Bld) [#/Vol] 10.2 10*3/uL Normal 4.0-11.0 [facility] Comment on above: Performed By: #### C BCA, CMP, 2532-0, 3084-1, FEPR, 2276-4, 56364-0 #### [facility] ([id number]) [address], [address] [place] [address] COMPREHENSIVE METABOLIC PANE Vinay 01-13-2024 Albumin [Mass/Vol] 2.6 g/dL Low 3.2-5.3 [facility] Comment on above: Performed By: #### C BCA, CMP, 2532-0, 3084-1, FEPR, 2276-4, 74283-6 #### [facility] ([id number]) [address], [address] [place] [address] ALP [Catalytic activity/Vol] 133 U/L High 39-130 [facility] Comment on above: Performed By: #### C BCA, CMP, 2532-0, 3084-1, FEPR, 2276-4, 34153-0 #### [facility] ([id number]) [address], [address] [place] [address] ALT [Catalytic activity/Vol] 7 U/L Normal 0-31 [facility] Comment on above: Performed By: #### C BCA, CMP, 2532-0, 3084-1, FEPR, 2276-4, 30967-6 #### [facility] ([id number]) [address], [address] [place] [address] Anion gap [Moles/Vol] 8 mmol/L Normal 5-15 [facility] Comment on above: Performed By: #### C BCA, CMP, 2532-0, 3084-1, FEPR, 2276-4, 75067-0 #### [facility] ([id number]) [address], [address] [place] [address] AST [Catalytic activity/Vol] 16 U/L Normal 0-41 [facility] Comment on above: Performed By: #### C BCA, CMP, 2532-0, 3084-1, FEPR, 2276-4, 51231-6 #### [facility] ([id number]) [address] [place] [address] Bilirubin [Mass/Vol] 0.2 mg/dL Low 0.3-1.2 [facility] Comment on above: Performed By: #### C BCA, CMP, 2532-0, 3084-1, FEPR, 2276-4, 39422-0 #### [facility] ([id number]) [address], [address] [place] [address] Calcium [Mass/Vol] 6.2 mg/dL Critically low 8.5-10.5 [facility] Comment on above: Performed By: #### C BCA, CMP, 2532-0, 3084-1, FEPR, 6-4, 13719-8 #### [facility] ([id number]) [address], [address] [place] [address] Chloride [Moles/Vol] 100 mmol/L Normal 98-109 [facility] Comment on above: Performed By: #### C BCA, CMP, 2532-0, 3084-1, FEPR, 2276-4, 12812-5 #### [facility] ([id number]) [address], [address] [place] [address] CO2 [Moles/Vol] 24 mmol/L Normal 22-32 [facility] Comment on above: Performed By: #### C BCA, CMP, 2532-0, 3084-1, FEPR, 2276-4, 61706-9 #### [facility] ([id number]) [address], [address] [place] [address] Creatinine [Mass/Vol] 0.64 mg/dL Normal 0.40-1.00 [facility] Comment on above: Result Comment: METH OD TRACEABLE TO IDMS STANDARD Performed By: #### C BCA, CMP, 2532-0, 3084-1, FEPR, 2276-4, 97364-5 #### [facility] ([id number]) [address], [address] [place] [address] eGFR (CKD-EPI) NON-RACE DEPENDENT >90 Normal >59 [facility] Comment on above: Result Comment: Reported eGFR is based on the CKD-EPI 2020 equation that does not use a race coefficient. Performed By: #### C BCA, CMP, 2532-0, 3084-1, FEPR, 2276-4, 42611-6 #### [facility] ([id number]) [address], [address] [place] [address] Glucose [Mass/Vol] 75 mg/dL Normal 65-99 [facility] Comment on above: Performed By: #### C BCA, CMP, 2532-0, 3084-1, FEPR, 2276-4, 20562-9 #### [facility] ([id number]) [address], [address] [place] [address] Potassium [Moles/Vol] 4.3 mmol/L Normal 3.5-5.0 [facility] Comment on above: Performed By: #### C BCA, CMP, 2532-0, 3084-1, FEPR, 2276-4, 58958-9 #### [facility] ([id number]) [address], [address] [place] [address] Protein [Mass/Vol] 5.2 g/dL Low 6.0-8.0 [facility] Comment on above: Performed By: #### C BCA, CMP, 2532-0, 3084-1, FEPR, 2276-4, 67416-3 #### [facility] ([id number]) [address], [address] [place] [address] Sodium [Moles/Vol] 132 mmol/L Low 134-146 [facility] Comment on above: Performed By: #### C BCA, CMP, 2532-0, 3084-1, FEPR, 2276-4, 99134-8 #### [facility] ([id number]) [address], [address] [place] [address] Urea nitrogen [Mass/Vol] 9 mg/dL Normal 5-23 [facility] Comment on above: Performed By: #### C BCA, CMP, 2532-0, 3084-1, FEPR, 6-4, 38371-1 #### [facility] ([id number]) [address], [address] [place] [address] CBC AND AUTO DIFFon 01-12-20 24 ABSOLUTE BASOPHIL 0.0 X10E9/L Normal 0.0-0.2 [facility] Comment on above: Performed By: #### C BCA, CMP, 2532-0, 3084-1, FEPR, 6-4, 22820-2 #### [facility] ([id number]) [address], [address] [place] [address] ABSOLUTE NEUTROPHIL 12.4 X10E9/L High 1.5-6.6 [facility] Comment on above: Performed By: #### C BCA, CMP, 2532-0, 3084-1, FEPR, 6-4, 94278-2 #### [facility] ([id number]) [address], [address] [place] [address] Basophils/100 WBC (Bld) 0.2 % Normal [facility] Comment on above: Performed By: #### C BCA, CMP, 2532-0, 3084-1, FEPR, 6-4, 31861-7 #### [facility] ([id number]) [address] [address] [place] [address] Eosinophils (Bld) [#/Vol] 0.0 10*3/uL Normal 0.0-0.4 [facility] Comment on above: Performed By: #### C BCA, CMP, 2532-0, 3084-1, FEPR, 2276-4, 91568-1 #### [facility] ([id number]) [address], [address] [place] [address] Eosinophils/100 WBC (Bld) 0.1 % Normal [facility] Comment on above: Performed By: #### C BCA, CMP, 2532-0, 3084-1, FEPR, 6-4, 18153-2 #### [facility] ([id number]) [address] [address] [place] [address] Erythrocyte distribution width (RBC) [Ratio] 15.5 % High 11.5-15.0 [facility] Comment on above: Performed By: #### C BCA, CMP, 2532-0, 3084-1, FEPR, 6-4, 84142-6 #### [facility] ([id number]) [address] [address] [place] [address] Hematocrit (Bld) [Volume fraction] 25.6 % Low 35-47 [facility] Comment on above: Performed By: #### C BCA, CMP, 2532-0, 3084-1, FEPR, 6-4, 20141-0 #### [facility] ([id number]) [address] [address] [place] [address] Hemoglobin (Bld) [Mass/Vol] 8.5 g/dL Low 11.7-15.5 [facility] Comment on above: Performed By: #### C BCA, CMP, 2532-0, 3084-1, FEPR, 6-4, 62598-1 #### [facility] ([id number]) [address] [address] [place] [address] Lymphocytes (Bld) [#/Vol] 1.0 10*3/uL Normal 1.0-3.5 [facility] Comment on above: Performed By: #### C BCA, CMP, 2532-0, 3084-1, FEPR, 6-4, 67826-0 #### [facility] ([id number]) [address], [address] [place] [address] Lymphocytes/100 WBC (Bld) 6.9 % Normal [facility] Comment on above: Performed By: #### C BCA, CMP, 2532-0, 3084-1, FEPR, 6-4, 08198-4 #### [facility] ([id number]) [address], [facility] [address] [place] [address] MCH (RBC) [Entitic mass] 24.4 pg Low 27-34 [facility] Comment on above: Performed By: #### C BCA, CMP, 2532-0, 3084-1, FEPR, 6-4, 58725-0 #### [facility] ([id number]) [address], [address] [place] [address] MCHC (RBC) [Mass/Vol] 33.2 g/dL Normal 32-36 [facility] Comment on above: Performed By: #### C BCA, CMP, 2532-0, 4-1, FEPR, 6-4, 91401-8 #### [facility] ([id number]) [address] [address] MCV (RBC) [Entitic vol] 73 fL Low 80-100 [facility] Comment on above: Performed By: #### C BCA, CMP, 2532-0, 3084-1, FEPR, 6-4, 57825-6 #### [facility] ([id number]) [address] [address] Monocytes (Bld) [#/Vol] 0.7 10*3/uL Normal 0-0.9 [facility] Comment on above: Performed By: #### C BCA, CMP, 2532-0, 3084-1, FEPR, 2276-4, 72092-7 #### [facility] ([id number]) [address], [address] [place] [address] Monocytes/100 WBC (Bld) 5.0 % Normal [facility] Comment on above: Performed By: #### C BCA, CMP, 2532-0, 3084-1, FEPR, 2276-4, 44259-9 #### [facility] ([id number]) [address], [address] [place] [address] Neutrophils/100 WBC (Bld) 87.8 % Normal [facility] Comment on above: Performed By: #### C BCA, CMP, 2532-0, 3084-1, FEPR, 2276-4, 30054-6 #### [facility] ([id number]) [address], [address] [place] [address] Platelet mean volume (Bld) [Entitic vol] 9.3 fL Normal 7-12 [facility] Comment on above: Performed By: #### C BCA, CMP, 2532-0, 3084-1, FEPR, 2276-4, 63651-4 #### [facility] ([id number]) [address], [address] [place] [address] Platelets (Bld) [#/Vol] 192 10*3/uL Normal 150-450 [facility] Comment on above: Performed By: #### C BCA, CMP, 2532-0, 3084-1, FEPR, 2276-4, 62430-4 #### [facility] ([id number]) [address], [address] [place] [address] RBC COUNT 3.49 X10E12/L Low 3.80-5.20 [facility] Comment on above: Performed By: #### C BCA, CMP, 2532-0, 3084-1, FEPR, 2276-4, 66940-6 #### [facility] ([id number]) [address], [address] [place] [address] WBC (Bld) [#/Vol] 14.1 10*3/uL High 4.0-11.0 [facility] Comment on above: Performed By: #### C BCA, CMP, 2532-0, 3084-1, FEPR, 2276-4, 16852-7 #### [facility] ([id number]) [address], [address] [place] [address] ABSOLUTE BASOPHIL 0.0 X10E9/L Normal 0.0-0.2 [facility] Comment on above: Performed By: #### C BCA, CMP, 2532-0, 3084-1, FEPR, 6-4, 34720-9 #### [facility] ([id number]) [address], [address] [place] [address] ABSOLUTE NEUTROPHIL 8.2 X10E9/L High 1.5-6.6 [facility] Comment on above: Performed By: #### C BCA, CMP, 2532-0, 3084-1, FEPR, 6-4, 40708-8 #### [facility] ([id number]) [address], [address] [place] [address] Basophils/100 WBC (Bld) 0.3 % Normal [facility] Comment on above: Performed By: #### C BCA, CMP, 2532-0, 3084-1, FEPR, 6-4, 44361-6 #### [facility] ([id number]) [address], [address] [place] [address] Eosinophils (Bld) [#/Vol] 0.0 10*3/uL Normal 0.0-0.4 [facility] Comment on above: Performed By: #### C BCA, CMP, 2532-0, 3084-1, FEPR, 6-4, 22655-6 #### [facility] ([id number]) [address], [facility] [address] [place] [address] Eosinophils/100 WBC (Bld) 0.2 % Normal [facility] Comment on above: Performed By: #### C BCA, CMP, 2532-0, 3084-1, FEPR, 2276-4, 22892-0 #### [facility] ([id number]) [address] [address] [place] [address] Erythrocyte distribution width (RBC) [Ratio] 15.4 % High 11.5-15.0 [facility] Comment on above: Performed By: #### C BCA, CMP, 2532-0, 3084-1, FEPR, 6-4, 90155-0 #### [facility] ([id number]) [address] [address] [place] [address] Hematocrit (Bld) [Volume fraction] 24.4 % Low 35-47 [facility] Comment on above: Performed By: #### C BCA, CMP, 2532-0, 3084-1, FEPR, 6-4, 56842-8 #### [facility] ([id number]) [address] [address] Hemoglobin (Bld) [Mass/Vol] 8.1 g/dL Low 11.7-15.5 [facility] Comment on above: Performed By: #### C BCA, CMP, 2532-0, 3084-1, FEPR, 2276-4, 59979-5 #### [facility] ([id number]) [address] [address] Lymphocytes (Bld) [#/Vol] 1.2 10*3/uL Normal 1.0-3.5 [facility] Comment on above: Performed By: #### C BCA, CMP, 2532-0, 3084-1, FEPR, 2276-4, 37366-0 #### [facility] ([id number]) [address] [address] [place] [address] Lymphocytes/100 WBC (Bld) 11.9 % Normal [facility] Comment on above: Performed By: #### C BCA, CMP, 2532-0, 3084-1, FEPR, 2276-4, 66374-5 #### [facility] ([id number]) [address] [address] [place] [address] MCH (RBC) [Entitic mass] 24.7 pg Low 27-34 [facility] Comment on above: Performed By: #### C BCA, CMP, 2532-0, 3084-1, FEPR, 2276-4, 71369-5 #### [facility] ([id number]) [address] [address] [place] [address] MCHC (RBC) [Mass/Vol] 33.3 g/dL Normal 32-36 [facility] Comment on above: Performed By: #### C BCA, CMP, 2532-0, 3084-1, FEPR, 6-4, 25421-8 #### [facility] ([id number]) [address] [address] MCV (RBC) [Entitic vol] 74 fL Low 80-100 [facility] Comment on above: Performed By: #### C BCA, CMP, 2532-0, 3084-1, FEPR, 2276-4, 90268-1 #### [facility] ([id number]) [address] [address] Monocytes (Bld) [#/Vol] 0.4 10*3/uL Normal 0-0.9 [facility] Comment on above: Performed By: #### C BCA, CMP, 2532-0, 3084-1, FEPR, 2276-4, 26086-3 #### [facility] ([id number]) [address], [address] [place] [address] Monocytes/100 WBC (Bld) 3.7 % Normal [facility] Comment on above: Performed By: #### C BCA, CMP, 2532-0, 3084-1, FEPR, 2276-4, 71904-6 #### [facility] ([id number]) [address], [facility] [address] [place] [address] Neutrophils/100 WBC (Bld) 83.9 % Normal [facility] Comment on above: Performed By: #### C BCA, CMP, 2532-0, 3084-1, FEPR, 2276-4, 24885-6 #### [facility] ([id number]) [address] [address] Platelet mean volume (Bld) [Entitic vol] 9.4 fL Normal 7-12 [facility] Comment on above: Performed By: #### C BCA, CMP, 2532-0, 3084-1, FEPR, 2276-4, 98068-6 #### [facility] ([id number]) [address] [address] Platelets (Bld) [#/Vol] 170 10*3/uL Normal 150-450 [facility] Comment on above: Performed By: #### C BCA, CMP, 2532-0, 3084-1, FEPR, 2276-4, 83393-4 #### [facility] ([id number]) [address], [facility] [address] [place] [address] RBC COUNT 3.29 X10E12/L Low 3.80-5.20 [facility] Comment on above: Performed By: #### C BCA, CMP, 2532-0, 3084-1, FEPR, 2276-4, 31600-4 #### [facility] ([id number]) [address] [address] [place] [address] WBC (Bld) [#/Vol] 9.8 10*3/uL Normal 4.0-11.0 [facility] Comment on above: Performed By: #### C BCA, CMP, 2532-0, 3084-1, FEPR, 2276-4, 31092-0 #### [facility] ([id number]) [address], [address] [place] [address] ABSOLUTE BASOPHIL 0.0 X10E9/L Normal 0.0-0.2 [facility] Comment on above: Performed By: #### C BCA, CMP, 2532-0, 3084-1, FEPR, 6-4, 88429-2 #### [facility] ([id number]) [address], [address] [place] [address] ABSOLUTE NEUTROPHIL 4.0 X10E9/L Normal 1.5-6.6 [facility] Comment on above: Performed By: #### C BCA, CMP, 2532-0, 3084-1, FEPR, 6-4, 48608-8 #### [facility] ([id number]) [address], [address] [place] [address] Basophils/100 WBC (Bld) 0.5 % Normal [facility] Comment on above: Performed By: #### C BCA, CMP, 2532-0, 3084-1, FEPR, 6-4, 20895-4 #### [facility] ([id number]) [address], [address] [place] [address] Eosinophils (Bld) [#/Vol] 0.0 10*3/uL Normal 0.0-0.4 [facility] Comment on above: Performed By: #### C BCA, CMP, 2532-0, 3084-1, FEPR, 2276-4, 35062-6 #### [facility] ([id number]) [address], [address] [place] [address] Eosinophils/100 WBC (Bld) 0.2 % Normal [facility] Comment on above: Performed By: #### C BCA, CMP, 2532-0, 3084-1, FEPR, 2276-4, 16035-9 #### [facility] ([id number]) [address], [address] [place] [address] Erythrocyte distribution width (RBC) [Ratio] 15.9 % High 11.5-15.0 [facility] Comment on above: Performed By: #### C BCA, CMP, 2532-0, 3084-1, FEPR, 2276-4, 77709-8 #### [facility] ([id number]) [address], [facility] [address] [place] [address] Hematocrit (Bld) [Volume fraction] 25.6 % Low 35-47 [facility] Comment on above: Performed By: #### C BCA, CMP, 2532-0, 3084-1, FEPR, 6-4, 26966-0 #### [facility] ([id number]) [address], [address] [place] [address] Hemoglobin (Bld) [Mass/Vol] 8.7 g/dL Low 11.7-15.5 [facility] Comment on above: Performed By: #### C BCA, CMP, 2532-0, 3084-1, FEPR, 6-4, 17390-7 #### [facility] ([id number]) [address], [address] [address] Lymphocytes (Bld) [#/Vol] 1.8 10*3/uL Normal 1.0-3.5 [facility] Comment on above: Performed By: #### C BCA, CMP, 2532-0, 3084-1, FEPR, 6-4, 09893-0 #### [facility] ([id number]) [address], [facility] [address] [place] [address] Lymphocytes/100 WBC (Bld) 28.5 % Normal [facility] Comment on above: Performed By: #### C BCA, CMP, 2532-0, 3084-1, FEPR, 6-4, 40137-4 #### [facility] ([id number]) [address], [address] [place] [address] MCH (RBC) [Entitic mass] 25.4 pg Low 27-34 [facility] Comment on above: Performed By: #### C BCA, CMP, 2532-0, 4-1, FEPR, 6-4, 33707-5 #### [facility] ([id number]) [address], [address] [place] [address] MCHC (RBC) [Mass/Vol] 33.9 g/dL Normal 32-36 [facility] Comment on above: Performed By: #### C BCA, CMP, 2-0, 4-1, FEPR, 6-4, 03988-1 #### [facility] ([id number]) [address], [address] [place] [address] MCV (RBC) [Entitic vol] 75 fL Low 80-100 [facility] Comment on above: Performed By: #### C BCA, CMP, 2532-0, 4-1, FEPR, 2275-4, 88264-0 #### [facility] ([id number]) [address], [address] [place] [address] Monocytes (Bld) [#/Vol] 0.4 10*3/uL Normal 0-0.9 [facility] Comment on above: Performed By: #### C BCA, CMP, 2532-0, 4-1, FEPR, 6-4, 71717-9 #### [facility] ([id number]) [address], [address] [place] [address] Monocytes/100 WBC (Bld) 6.1 % Normal [facility] Comment on above: Performed By: #### C BCA, CMP, 2532-0, 3084-1, FEPR, 2276-4, 66837-3 #### [facility] ([id number]) [address], [facility] [address] [place] [address] Neutrophils/100 WBC (Bld) 64.7 % Normal [facility] Comment on above: Performed By: #### C BCA, CMP, 2532-0, 3084-1, FEPR, 2276-4, 64359-3 #### [facility] ([id number]) [address], [facility] [address] [place] [address] Platelet mean volume (Bld) [Entitic vol] 9.4 fL Normal 7-12 [facility] Comment on above: Performed By: #### C BCA, CMP, 2532-0, 3084-1, FEPR, 2276-4, 69569-1 #### [facility] ([id number]) [address] [address] Platelets (Bld) [#/Vol] 155 10*3/uL Normal 150-450 [facility] Comment on above: Performed By: #### C BCA, CMP, 2532-0, 3084-1, FEPR, 6-4, 33399-3 #### [facility] ([id number]) [address] [address] [place] [address] RBC COUNT 3.42 X10E12/L Low 3.80-5.20 [facility] Comment on above: Performed By: #### C BCA, CMP, 2532-0, 3084-1, FEPR, 2276-4, 73079-7 #### [facility] ([id number]) [address] [address] [place] [address] WBC (Bld) [#/Vol] 6.2 10*3/uL Normal 4.0-11.0 [facility] Comment on above: Performed By: #### C BCA, CMP, 2532-0, 3084-1, FEPR, 2276-4, 77642-1 #### [facility] ([id number]) [address], [address] [place] [address] COMPREHENSIVE METABOLIC PANE Vinay 01-12-2024 Albumin [Mass/Vol] 2.8 g/dL Low 3.2-5.3 [facility] Comment on above: Performed By: #### C BCA, CMP, 2532-0, 3084-1, FEPR, 2276-4, 92035-3 #### [facility] ([id number]) [address], [address] [place] [address] ALP [Catalytic activity/Vol] 152 U/L High 39-130 [facility] Comment on above: Performed By: #### C BCA, CMP, 2532-0, 3084-1, FEPR, 2276-4, 37805-4 #### [facility] ([id number]) [address], [address] [place] [address] ALT [Catalytic activity/Vol] 10 U/L Normal 0-31 [facility] Comment on above: Performed By: #### C BCA, CMP, 2532-0, 3084-1, FEPR, 2276-4, 52183-0 #### [facility] ([id number]) [address], [address] [place] [address] Anion gap [Moles/Vol] 7 mmol/L Normal 5-15 [facility] Comment on above: Performed By: #### C BCA, CMP, 2532-0, 3084-1, FEPR, 2276-4, 27434-2 #### [facility] ([id number]) [address], [address] [place] [address] AST [Catalytic activity/Vol] 18 U/L Normal 0-41 [facility] Comment on above: Performed By: #### C BCA, CMP, 2532-0, 3084-1, FEPR, 2276-4, 96938-4 #### [facility] ([id number]) [address], [address] [place] [address] Bilirubin [Mass/Vol] 0.3 mg/dL Normal 0.3-1.2 [facility] Comment on above: Performed By: #### C BCA, CMP, 2532-0, 3084-1, FEPR, 2276-4, 03934-4 #### [facility] ([id number]) [address], [address] [place] [address] Calcium [Mass/Vol] 6.6 mg/dL Critically low 8.5-10.5 [facility] Comment on above: Performed By: #### C BCA, CMP, 2532-0, 3084-1, FEPR, 6-4, 71141-4 #### [facility] ([id number]) [address], [address] [place] [address] Chloride [Moles/Vol] 104 mmol/L Normal 98-109 [facility] Comment on above: Performed By: #### C BCA, CMP, 2532-0, 3084-1, FEPR, 6-4, 00794-7 #### [facility] ([id number]) [address], [address] [place] [address] CO2 [Moles/Vol] 23 mmol/L Normal 22-32 [facility] Comment on above: Performed By: #### C BCA, CMP, 2532-0, 3084-1, FEPR, 2276-4, 39240-1 #### [facility] ([id number]) [address], [address] [place] [address] Creatinine [Mass/Vol] 0.59 mg/dL Normal 0.40-1.00 [facility] Comment on above: Result Comment: METH OD TRACEABLE TO IDMS STANDARD Performed By: #### C BCA, CMP, 2532-0, 3084-1, FEPR, 2276-4, 34947-0 #### [facility] ([id number]) [address], [address] [place] [address] eGFR (CKD-EPI) NON-RACE DEPENDENT >90 Normal >59 [facility] Comment on above: Result Comment: Reported eGFR is based on the CKD-EPI 1 equation that does not use a race coefficient. Performed By: #### C BCA, CMP, 2532-0, 3084-1, FEPR, 2276-4, 26632-6 #### [facility] ([id number]) [address], [address] [place] [address] Glucose [Mass/Vol] 100 mg/dL High 65-99 [facility] Comment on above: Performed By: #### C BCA, CMP, 2532-0, 3084-1, FEPR, 6-4, 05759-1 #### [facility] ([id number]) [address], [address] [place] [address] Potassium [Moles/Vol] 4.3 mmol/L Normal 3.5-5.0 [facility] Comment on above: Performed By: #### C BCA, CMP, 2532-0, 3084-1, FEPR, 6-4, 14588-3 #### [facility] ([id number]) [address], [address] [place] [address] Protein [Mass/Vol] 5.4 g/dL Low 6.0-8.0 [facility] Comment on above: Performed By: #### C BCA, CMP, 2532-0, 3084-1, FEPR, 2276-4, 81069-0 #### [facility] ([id number]) [address], [address] [place] [address] Sodium [Moles/Vol] 134 mmol/L Normal 134-146 [facility] Comment on above: Performed By: #### C BCA, CMP, 2532-0, 3084-1, FEPR, 2276-4, 51831-5 #### [facility] ([id number]) [address], [address] [place] [address] Urea nitrogen [Mass/Vol] 9 mg/dL Normal 5-23 [facility] Comment on above: Performed By: #### C BCA, CMP, 2532-0, 3084-1, FEPR, 2276-4, 50631-2 #### [facility] ([id number]) [address], [address] [place] [address] Albumin [Mass/Vol] 2.8 g/dL Low 3.2-5.3 [facility] Comment on above: Performed By: #### C BCA, CMP, 2532-0, 3084-1, FEPR, 6-4, 02462-3 #### [facility] ([id number]) [address], [address] [place] [address] ALP [Catalytic activity/Vol] 149 U/L High 39-130 [facility] Comment on above: Performed By: #### C BCA, CMP, 2532-0, 3084-1, FEPR, 6-4, 32807-1 #### [facility] ([id number]) [address], [address] [place] [address] ALT [Catalytic activity/Vol] 10 U/L Normal 0-31 [facility] Comment on above: Performed By: #### C BCA, CMP, 2532-0, 3084-1, FEPR, 2276-4, 60920-7 #### [facility] ([id number]) [address], [address] [place] [address] Anion gap [Moles/Vol] 8 mmol/L Normal 5-15 [facility] Comment on above: Performed By: #### C BCA, CMP, 2532-0, 3084-1, FEPR, 2276-4, 42199-8 #### [facility] ([id number]) [address], [address] [place] [address] AST [Catalytic activity/Vol] 15 U/L Normal 0-41 [facility] Comment on above: Performed By: #### C BCA, CMP, 2532-0, 3084-1, FEPR, 2276-4, 98647-2 #### [facility] ([id number]) [address], [address] [place] [address] Bilirubin [Mass/Vol] 0.2 mg/dL Low 0.3-1.2 [facility] Comment on above: Performed By: #### C BCA, CMP, 2532-0, 3084-1, FEPR, 2276-4, 56656-7 #### [facility] ([id number]) [address], [address] [place] [address] Calcium [Mass/Vol] 7.1 mg/dL Low 8.5-10.5 [facility] Comment on above: Performed By: #### C BCA, CMP, 2532-0, 3084-1, FEPR, 2276-4, 59903-8 #### [facility] ([id number]) [address], [address] [place] [address] Chloride [Moles/Vol] 107 mmol/L Normal 98-109 [facility] Comment on above: Performed By: #### C BCA, CMP, 2532-0, 3084-1, FEPR, 2276-4, 27693-9 #### [facility] ([id number]) [address], [address] [place] [address] CO2 [Moles/Vol] 23 mmol/L Normal 22-32 [facility] Comment on above: Performed By: #### C BCA, CMP, 2532-0, 3084-1, FEPR, 2276-4, 77532-5 #### [facility] ([id number]) [address], [address] [place] [address] Creatinine [Mass/Vol] 0.60 mg/dL Normal 0.40-1.00 [facility] Comment on above: Result Comment: METH OD TRACEABLE TO IDMS STANDARD Performed By: #### C BCA, CMP, 2532-0, 3084-1, FEPR, 2276-4, 70429-6 #### [facility] ([id number]) [address], [address] [place] [address] eGFR (CKD-EPI) NON-RACE DEPENDENT >90 Normal >59 [facility] Comment on above: Result Comment: Reported eGFR is based on the CKD-EPI 2020 equation that does not use a race coefficient. Performed By: #### C BCA, CMP, 2532-0, 3084-1, FEPR, 2276-4, 34238-2 #### [facility] ([id number]) [address], [address] [place] [address] Glucose [Mass/Vol] 80 mg/dL Normal 65-99 [facility] Comment on above: Performed By: #### C BCA, CMP, 2532-0, 3084-1, FEPR, 2276-4, 07236-7 #### [facility] ([id number]) [address], [address] [place] [address] Potassium [Moles/Vol] 4.1 mmol/L Normal 3.5-5.0 [facility] Comment on above: Performed By: #### C BCA, CMP, 2532-0, 3084-1, FEPR, 2276-4, 95326-2 #### [facility] ([id number]) [address], [address] [place] [address] Protein [Mass/Vol] 5.5 g/dL Low 6.0-8.0 [facility] Comment on above: Performed By: #### C BCA, CMP, 2532-0, 3084-1, FEPR, 2276-4, 20328-6 #### [facility] ([id number]) [address], [address] [place] [address] Sodium [Moles/Vol] 138 mmol/L Normal 134-146 [facility] Comment on above: Performed By: #### C BCA, CMP, 2532-0, 3084-1, FEPR, 2276-4, 97345-0 #### [facility] ([id number]) [address], [address] [place] [address] Urea nitrogen [Mass/Vol] 8 mg/dL Normal 5-23 [facility] Comment on above: Performed By: #### C BCA, CMP, 2532-0, 3084-1, FEPR, 6-4, 33636-3 #### [facility] ([id number]) [address], [address] [place] [address] CORD ARTERIAL GASon 01-12-20 24 SYLVIA'S TEST Normal [facility] Comment on above: Performed By: #### C BCA, CMP, 2532-0, 3084-1, FEPR, 6-4, 32608-9 #### [facility] ([id number]) [address], [address] [place] [address] BASE,DEFICIT 4.0 MMOL/L High 0.0-2.0 [facility] Comment on above: Performed By: #### C BCA, CMP, 2532-0, 3084-1, FEPR, 6-4, 44800-1 #### [facility] ([id number]) [address], [address] [place] [address] HCO3 (Bld) [Moles/Vol] 25.8 mmol/L Normal 22-26 [facility] Comment on above: Performed By: #### C BCA, CMP, 2532-0, 3084-1, FEPR, 2276-4, 80671-4 #### [facility] ([id number]) [address], [address] [place] [address] INSP. O2 CONC. 21 % Normal [facility] Comment on above: Performed By: #### C BCA, CMP, 2532-0, 3084-1, FEPR, 2276-4, 27206-0 #### [facility] ([id number]) [address], [address] [place] [address] Oxygen (Bld) [Partial pressure] 10 mm[Hg] Low 12-24 [facility] Comment on above: Performed By: #### C BCA, CMP, 2532-0, 3084-1, FEPR, 2276-4, 16190-8 #### [facility] ([id number]) [address], [address] [place] [address] Oxygen saturation in Blood 7.0 % Low 7.1-39.5 [facility] Comment on above: Performed By: #### C BCA, CMP, 2532-0, 3084-1, FEPR, 6-4, 80661-9 #### [facility] ([id number]) [address], [address] [place] [address] OXYGEN SOURCE RoomAir Normal [facility] Comment on above: Performed By: #### C BCA, CMP, 2532-0, 3084-1, FEPR, 2276-4, 17233-3 #### [facility] ([id number]) [address], [address] [place] [address] PCO2 67.1 MMHG High 40.8-57.6 [facility] Comment on above: Performed By: #### C BCA, CMP, 2532-0, 3084-1, FEPR, 2276-4, 74157-1 #### [facility] ([id number]) [address], [address] [place] [address] pH (Bld) 7.192 [pH] Low 7.24-7.30 [facility] Comment on above: Performed By: #### C BCA, CMP, 2532-0, 3084-1, FEPR, 2276-4, 75924-9 #### [facility] ([id number]) [address], [address] [place] [address] SAMPLE SITE ArtCord Normal [facility] Comment on above: Performed By: #### C BCA, CMP, 2532-0, 3084-1, FEPR, 2276-4, 84845-1 #### [facility] ([id number]) [address], [address] [place] [address] SAMPLE TYPE UMBILICALCORD Normal [facility] Comment on above: Performed By: #### C BCA, CMP, 2532-0, 3084-1, FEPR, 2276-4, 61218-6 #### [facility] ([id number]) [address], [address] [place] [address] CORD VENOUS GASon 01-12-2024 SYLVIA'S TEST Normal [facility] Comment on above: Performed By: #### C BCA, CMP, 2532-0, 3084-1, FEPR, 2276-4, 50684-9 #### [facility] ([id number]) [address], [address] [place] [address] BASE,DEFICIT 4.0 MMOL/L High 0.0-2.0 [facility] Comment on above: Performed By: #### C BCA, CMP, 2532-0, 3084-1, FEPR, 2276-4, 06017-6 #### [facility] ([id number]) [address], [address] [place] [address] HCO3 (Bld) [Moles/Vol] 21.9 mmol/L Normal 20.0-24.0 [facility] Comment on above: Performed By: #### C BCA, CMP, 2532-0, 3084-1, FEPR, 2276-4, 48622-3 #### [facility] ([id number]) [address], [address] [place] [address] INSP. O2 CONC. 21 % Normal [facility] Comment on above: Performed By: #### C BCA, CMP, 2532-0, 3084-1, FEPR, 2276-4, 89040-8 #### [facility] ([id number]) [address], [address] [place] [address] Oxygen (Bld) [Partial pressure] 34 mm[Hg] Normal 22-35 [facility] Comment on above: Performed By: #### C BCA, CMP, 2532-0, 3084-1, FEPR, 2276-4, 95736-1 #### [facility] ([id number]) [address], [address] [place] [address] Oxygen saturation in Blood 61.0 % Normal 32.5-66.3 [facility] Comment on above: Performed By: #### C BCA, CMP, 2532-0, 3084-1, FEPR, 2276-4, 06815-2 #### [facility] ([id number]) [address], [address] [place] [address] OXYGEN SOURCE RoomAir Normal [facility] Comment on above: Performed By: #### C BCA, CMP, 2532-0, 3084-1, FEPR, 2276-4, 69446-2 #### [facility] ([id number]) [address], [address] [place] [address] PCO2 42.7 MMHG Normal 32.6-43.8 [facility] Comment on above: Performed By: #### C BCA, CMP, 2532-0, 3084-1, FEPR, 2276-4, 52548-5 #### [facility] ([id number]) [address], [address] [place] [address] pH (Bld) 7.318 [pH] Normal 7.25-7.37 [facility] Comment on above: Performed By: #### C BCA, CMP, 2532-0, 3084-1, FEPR, 2276-4, 89711-6 #### [facility] ([id number]) [address], [address] [place] [address] SAMPLE SITE VenCord Normal [facility] Comment on above: Performed By: #### C BCA, CMP, 2532-0, 3084-1, FEPR, 2276-4, 08745-5 #### [facility] ([id number]) [address], [address] [place] [address] SAMPLE TYPE UMBILICALCORD Normal [facility] Comment on above: Performed By: #### C BCA, CMP, 2532-0, 3084-1, FEPR, 2276-4, 68770-5 #### [facility] ([id number]) [address], [address] [place] [address] STREP B PCR VAG/RECTon 01-11 S. agalactiae Org specific cx Ql (Vag+Rectum) Negative Normal NEG [facility] Comment on above: Performed By: #### 7 2607-5 #### [facility] ([id number]) [address], [address] [place] [address] Surgical Pathologyon 024 Surgical Pathology Normal [facility] Comment on above: Result Comment: [facility] [address] [place] [address] Surgical Pathology Consultation Patient Name:YANETH BROWNLEE:1990 (Age: 33)Gender:FTaken:4Reported:02/10/2024hysician(s):Brandi Last MD ([phone])Copy To: Rec. #:[id number]: #[id number] Final Pathologic Diagnosis Placenta: Third trimester placenta. Three vessel umbilical cord. Mark-Davon changes. Report Electronically Signed Out [email or web address] Mcleod MD Interpretation performed at [facility], [address] [place] [address], License number: [id number]. Clinical History Pre-eclampsia, severe. Gross Description Received in formalin labeled BROWNLEE, placenta : Single MEMBRANES: Placenta Sac Rupture (cm from margin): Indeterminate, 10% disrupted Color: Blue-friend Other Characteristics: Unremarkable Insertion Site: Marginal CORD: Appearance: Unremarkable Site of Insertion: Eccentric Length & Diameter (cm): 6 x 1 cm True Knots: No Number of vessels: 3 GENERAL: Trimmed Weight (grams): 455 g Complete: Yes Size 1 x Size 2 x Size 3 (cm): 18 x 16 x 2.5 cm Accessory Lobe(s): No PLACENTAL DISK: Color of Surface: Blue-friend Sub-amniotic Cyst: No Amnion Nodosum: No Subchorionic Fibrin: No Appearance of Cut Surface: Uniform and unremarkable Maternal floor: Intact and unremarkable Retroplacental hematoma: No Cassettes: A Rolled membrane, two sections of cord B-D Chef German sections of placenta E Additional membrane roll (5,ss,[id number]) . /4RG Specimen(s) Received Placenta Fee Codes(s): 1; 11996 XR ABDOMEN AP 1 VWon 024 XR [...] Haro MD on 01/12/2024 10:35 AM Normal [facility] CBC AND AUTO DIFFon 01-11-20 24 Band form neutrophils/100 WBC (Bld) 2.0 % Normal [facility] Comment on above: Performed By: #### C BCA, CMP, 2532-0, 3084-1, FEPR, 2276-4, 60415-5 #### [facility] ([id number]) [address] [address] [place] [address] Erythrocyte distribution width (RBC) [Ratio] 15.6 % High 11.5-15.0 [facility] Comment on above: Performed By: #### C BCA, CMP, 2532-0, 3084-1, FEPR, 6-4, 51434-3 #### [facility] ([id number]) [address] [address] [place] [address] Hematocrit (Bld) [Volume fraction] 27.9 % Low 35-47 [facility] Comment on above: Performed By: #### C BCA, CMP, 2532-0, 3084-1, FEPR, 6-4, 91954-0 #### [facility] ([id number]) [address], [facility] [address] [place] [address] Hemoglobin (Bld) [Mass/Vol] 9.3 g/dL Low 11.7-15.5 [facility] Comment on above: Performed By: #### C BCA, CMP, 2532-0, 3084-1, FEPR, 6-4, 04961-7 #### [facility] ([id number]) [address] [address] [place] [address] Lymphocytes (Bld) [#/Vol] 1.9 10*3/uL Normal 1.0-3.5 [facility] Comment on above: Performed By: #### C BCA, CMP, 2532-0, 3084-1, FEPR, 6-4, 57513-7 #### [facility] ([id number]) [address] [address] [place] [address] Lymphocytes/100 WBC (Bld) 24.0 % Normal [facility] Comment on above: Performed By: #### C BCA, CMP, 2532-0, 3084-1, FEPR, 2276-4, 15617-4 #### [facility] ([id number]) [address], [address] [place] [address] MCH (RBC) [Entitic mass] 24.8 pg Low 27-34 [facility] Comment on above: Performed By: #### C BCA, CMP, 2532-0, 3084-1, FEPR, 2276-4, 77432-8 #### [facility] ([id number]) [address], [facility] [address] [place] [address] MCHC (RBC) [Mass/Vol] 33.4 g/dL Normal 32-36 [facility] Comment on above: Performed By: #### C BCA, CMP, 2532-0, 3084-1, FEPR, 6-4, 90626-2 #### [facility] ([id number]) [address], [address] [place] [address] MCV (RBC) [Entitic vol] 74 fL Low 80-100 [facility] Comment on above: Performed By: #### C BCA, CMP, 2532-0, 3084-1, FEPR, 6-4, 11366-0 #### [facility] ([id number]) [address], [address] [address] Metamyelocytes/100 WBC (Bld) 1.0 % Normal [facility] Comment on above: Performed By: #### C BCA, CMP, 2532-0, 3084-1, FEPR, 2276-4, 66635-8 #### [facility] ([id number]) [address] [address] Monocytes (Bld) [#/Vol] 0.4 10*3/uL Normal 0-0.9 [facility] Comment on above: Performed By: #### C BCA, CMP, 2532-0, 3084-1, FEPR, 2276-4, 17027-7 #### [facility] ([id number]) [address], [address] [place] [address] Monocytes/100 WBC (Bld) 5.0 % Normal [facility] Comment on above: Performed By: #### C BCA, CMP, 2532-0, 3084-1, FEPR, 2276-4, 06925-3 #### [facility] ([id number]) [address], [address] [place] [address] Neutrophils (Bld) [#/Vol] 5.4 10*3/uL Normal 1.5-6.6 [facility] Comment on above: Performed By: #### C BCA, CMP, 2532-0, 3084-1, FEPR, 6-4, 40640-4 #### [facility] ([id number]) [address], [facility] [address] [place] [address] NUCLEATED RBC 2.0 /100 WBC High 0.0-1.0 [facility] Comment on above: Performed By: #### C BCA, CMP, 2532-0, 3084-1, FEPR, 2276-4, 61875-6 #### [facility] ([id number]) [address], [facility] [address] [place] [address] Platelet mean volume (Bld) [Entitic vol] 9.6 fL Normal 7-12 [facility] Comment on above: Performed By: #### C BCA, CMP, 2532-0, 3084-1, FEPR, 2276-4, 16815-3 #### [facility] ([id number]) [address], [facility] [address] [place] [address] Platelets (Bld) [#/Vol] 186 10*3/uL Normal 150-450 [facility] Comment on above: Performed By: #### C BCA, CMP, 2532-0, 3084-1, FEPR, 2276-4, 44105-8 #### [facility] ([id number]) [address], [address] [place] [address] POLYCHROMASIA 1+ Abnormal NONE [facility] Comment on above: Performed By: #### C BCA, CMP, 2532-0, 3084-1, FEPR, 2276-4, 23064-3 #### [facility] ([id number]) [address], [address] [place] [address] RBC COUNT 3.75 X10E12/L Low 3.80-5.20 [facility] Comment on above: Performed By: #### C BCA, CMP, 2532-0, 3084-1, FEPR, 6-4, 66123-3 #### [facility] ([id number]) [address], [address] [place] [address] SEG NEUTROPHIL 68.0 % Normal [facility] Comment on above: Performed By: #### C BCA, CMP, 2532-0, 3084-1, FEPR, 6-4, 23717-9 #### [facility] ([id number]) [address], [address] [place] [address] WBC (Bld) [#/Vol] 7.8 10*3/uL Normal 4.0-11.0 [facility] Comment on above: Performed By: #### C BCA, CMP, 2532-0, 3084-1, FEPR, 6-4, 81138-8 #### [facility] ([id number]) [address], [address] [place] [address] COMPREHENSIVE METABOLIC PANE Vinay 01-11-2024 Albumin [Mass/Vol] 3.2 g/dL Normal 3.2-5.3 [facility] Comment on above: Performed By: #### C BCA, CMP, 2532-0, 3084-1, FEPR, 2276-4, 65557-2 #### [facility] ([id number]) [address], [address] [place] [address] ALP [Catalytic activity/Vol] 169 U/L High 39-130 [facility] Comment on above: Performed By: #### C BCA, CMP, 2532-0, 3084-1, FEPR, 2276-4, 44906-4 #### [facility] ([id number]) [address], [address] [place] [address] ALT [Catalytic activity/Vol] 8 U/L Normal 0-31 [facility] Comment on above: Performed By: #### C BCA, CMP, 2532-0, 3084-1, FEPR, 2276-4, 14611-6 #### [facility] ([id number]) [address], [address] [place] [address] Anion gap [Moles/Vol] 12 mmol/L Normal 5-15 [facility] Comment on above: Performed By: #### C BCA, CMP, 2532-0, 3084-1, FEPR, 2276-4, 81358-0 #### [facility] ([id number]) [address], [address] [place] [address] AST [Catalytic activity/Vol] 14 U/L Normal 0-41 [facility] Comment on above: Performed By: #### C BCA, CMP, 2532-0, 3084-1, FEPR, 2276-4, 72950-7 #### [facility] ([id number]) [address], [address] [place] [address] Bilirubin [Mass/Vol] 0.2 mg/dL Low 0.3-1.2 [facility] Comment on above: Performed By: #### C BCA, CMP, 2532-0, 3084-1, FEPR, 2276-4, 89845-8 #### [facility] ([id number]) [address], [address] [place] [address] Calcium [Mass/Vol] 8.4 mg/dL Low 8.5-10.5 [facility] Comment on above: Performed By: #### C BCA, CMP, 2532-0, 3084-1, FEPR, 2276-4, 79087-6 #### [facility] ([id number]) [address], [address] [place] [address] Chloride [Moles/Vol] 111 mmol/L High 98-109 [facility] Comment on above: Performed By: #### C BCA, CMP, 2532-0, 3084-1, FEPR, 2276-4, 41263-4 #### [facility] ([id number]) [address], [address] [address] CO2 [Moles/Vol] 19 mmol/L Low 22-32 [facility] Comment on above: Performed By: #### C BCA, CMP, 2532-0, 3084-1, FEPR, 2276-4, 96126-3 #### [facility] ([id number]) [address] [address] Creatinine [Mass/Vol] 0.57 mg/dL Normal 0.40-1.00 [facility] Comment on above: Result Comment: METH OD TRACEABLE TO IDMS STANDARD Performed By: #### C BCA, CMP, 2532-0, 3084-1, FEPR, 2276-4, 02412-6 #### [facility] ([id number]) [address], [address] [place] [address] eGFR (CKD-EPI) NON-RACE DEPENDENT >90 Normal >59 [facility] Comment on above: Result Comment: Reported eGFR is based on the CKD-EPI 2020 equation that does not use a race coefficient. Performed By: #### C BCA, CMP, 2532-0, 3084-1, FEPR, 2276-4, 26212-0 #### [facility] ([id number]) [address], [address] [place] [address] Glucose [Mass/Vol] 80 mg/dL Normal 65-99 [facility] Comment on above: Performed By: #### C BCA, CMP, 2532-0, 3084-1, FEPR, 2276-4, 01253-7 #### [facility] ([id number]) [address], [address] [place] [address] Potassium [Moles/Vol] 3.9 mmol/L Normal 3.5-5.0 [facility] Comment on above: Performed By: #### C BCA, CMP, 2532-0, 3084-1, FEPR, 2276-4, 73916-0 #### [facility] ([id number]) [address], [address] [place] [address] Protein [Mass/Vol] 6.3 g/dL Normal 6.0-8.0 [facility] Comment on above: Performed By: #### C BCA, CMP, 2532-0, 3084-1, FEPR, 2276-4, 57145-7 #### [facility] ([id number]) [address], [address] [place] [address] Sodium [Moles/Vol] 142 mmol/L Normal 134-146 [facility] Comment on above: Performed By: #### C BCA, CMP, 2532-0, 3084-1, FEPR, 2276-4, 27877-4 #### [facility] ([id number]) [address], [address] [place] [address] Urea nitrogen [Mass/Vol] 9 mg/dL Normal 5-23 [facility] Comment on above: Performed By: #### C BCA, CMP, 2532-0, 3084-1, FEPR, 2276-4, 63553-3 #### [facility] ([id number]) [address], [address] [place] [address] DRUG SCREEN, URINEon 024 AMPHETAMINE/METHAMP Negative Normal NEG [facility] Comment on above: Result Comment: AMPH /METH screening cut off = 1000 ng/mL Performed By: #### D LITTLE #### [facility] ([id number]) [address], [address] [place] [address] BARBITURATES Negative Normal NEG [facility] Comment on above: Result Comment: Sol iturates screening cut off value = 200 ng/mL Performed By: #### D LITTLE #### [facility] ([id number]) [address], [address] [place] [address] BENZODIAZEPINES Negative Normal NEG [facility] Comment on above: Result Comment: Laci odiazepines screening cut off value = 200 ng/mL Performed By: #### D LITTLE #### [facility] ([id number]) [address], [address] [place] [address] CANNABINOIDS Negative Normal NEG [facility] Comment on above: Result Comment: Neno abinoids/THC screening cut off value = 50 ng/mL Performed By: #### D LITTLE #### [facility] ([id number]) [address], [address] [place] [address] COCAINE METABOLITE Negative Normal NEG [facility] Comment on above: Result Comment: Coca ine screening cut off value = 300 ng/mL Performed By: #### D LITTLE #### [facility] ([id number]) [address], [address] [place] [address] ECSTASY Negative Normal NEG [facility] Comment on above: Result Comment: Ecst asy screening cut off value = 500 ng/mL This report is intended for use in clinical monitoring or management of patients. Performed By: #### D LITTLE #### [facility] ([id number]) [address], [address] [place] [address] METHADONE Negative Normal NEG [facility] Comment on above: Result Comment: Meth adone screening cut off value = 300 ng/mL. Performed By: #### D LITTLE #### [facility] ([id number]) [address], [address] [place] [address] OPIATES Negative Normal NEG [facility] Comment on above: Result Comment: Opia ermias screening cut off value = 300 ng/mL NOTE: This test is used for the detection of codeine, hydrocodone (>1000 ng/mL), morphine and hydromorphone (>900 ng/mL) in urine. Performed By: #### D LITTLE #### [facility] ([id number]) [address], [address] [place] [address] OXYCODONE Negative Normal NEG [facility] Comment on above: Result Comment: Oxyc odone screening cut off value = 300 ng/mL NOTE: This test is used for the detection of oxycodone and oxymorphone in urine. Performed By: #### D LITTLE #### [facility] ([id number]) [address], [address] [place] [address] PHENCYCLIDINE Negative Normal NEG [facility] Comment on above: Result Comment: Phen cyclidine screening cut off value = 25 ng/mL Performed By: #### D LITTLE #### [facility] ([id number]) [address], [address] [place] [address] FERRITINon 01-11-2024 Ferritin [Mass/Vol] 8 ng/mL Low 11-307 [facility] Comment on above: Performed By: #### C BCA, CMP, 2532-0, 3084-1, FEPR, 2276-4, 65929-5 #### [facility] ([id number]) [address], [address] [place] [address] IRON PROFILEon 01-11-2024 Iron [Mass/Vol] 24 ug/dL Low 50-170 [facility] Comment on above: Performed By: #### C BCA, CMP, 2532-0, 3084-1, FEPR, 2276-4, 95784-7 #### [facility] ([id number]) [address], [address] [place] [address] IRON BINDING 598 ug/dL High 250-425 [facility] Comment on above: Performed By: #### C BCA, CMP, 2532-0, 3084-1, FEPR, 2276-4, 23428-7 #### [facility] ([id number]) [address], [address] [place] [address] IRON SATURATION 4 % SATURATION Low 15-50 [facility] Comment on above: Performed By: #### C BCA, CMP, 2532-0, 3084-1, FEPR, 2276-4, 58293-3 #### [facility] ([id number]) [address], [address] [place] [address] LDH [Catalytic activity/Vol] on 01-11-2024 LDH 151 U/L Normal 100-235 [facility] Comment on above: Performed By: #### C BCA, CMP, 2532-0, 3084-1, FEPR, 2276-4, 91530-0 #### [facility] ([id number]) [address], [address] [place] [address] PROTEIN CREAT RATIOon 2023 RANDOM URINE PROTEIN 350 mg/L High <120 [facility] Comment on above: Performed By: #### U PCR #### [facility] ([id number]) [address] [address] [place] [address] U/PRO/TAILING HAND RATIO CALC 2.00 High <0.2 [facility] Comment on above: Result Comment: Neph rotic Syndrome is associated with ratios >3.5 Performed By: #### U PCR #### [facility] ([id number]) [address], [address] [place] [address] URINE CREATININE,RDM 17.47 mg/dL Normal Pro [facility] Comment on above: Performed By: #### U PCR #### [facility] ([id number]) [address], [address] [place] [address] T. pallidum IgG+IgM IA Ql (S )on 01-11-2024 Syphilis Total <0.2 Normal 0.0-0.8 [facility] Comment on above: Result Comment: NON REACTIVE No serologic evidence of infection to Treponema pallidum (syphilis). Repeat testing may be considered in patients with suspected acute or primary syphilis in 2 to 4 weeks. Performed By: #### C BCA, CMP, 2532-0, 3084-1, FEPR, 2276-4, 09194-0 #### [facility] ([id number]) [address] [facility], [address] [place] [address] URIC ACIDon 01-11-2024 Urate [Mass/Vol] 7.6 mg/dL High 2.6-7.2 [facility] Comment on above: Performed By: #### C BCA, CMP, 2532-0, 3084-1, FEPR, 2276-4, 80930-0 #### [facility] ([id number]) [address], [address] [place] [address] Coxsackie B Abon 10-26-2023 Coxsavitoie tp. B1 <1:10 Normal <1:10 [facility] Comment on above: Performed By: #### C MVG, LUPPRO, AT3A, PROCAC, PROSAC, CMVM, CMIS, TOXOG, TOXOM, HOCYS #### [facility] [address] [place] [address] Solar Systems Designer: Tanvir Macias MD #### APTMUT, AF5MUT, AMTHFR, ACOXA9, APARVP, ACOXAB #### [facility] [address] [place] [address] Solar Systems Designer: MD Tatum Santoyo tp. B2 1:20 Normal <1:10 [facility] Comment on above: Performed By: #### C MVG, LUPPRO, AT3A, PROCAC, PROSAC, CMVM, CMIS, TOXOG, TOXOM, HOCYS #### [facility] [address] [place] [address] Solar Systems Designer: Tanvir Macias MD #### APTMUT, AF5MUT, AMTHFR, ACOXA9, APARVP, ACOXAB #### [facility] [address] [place] [address] Solar Systems Designer: MD Tatum Santoyo B3 1:10 Normal <1:10 [facility] Comment on above: Performed By: #### C MVG, LUPPRO, AT3A, PROCAC, PROSAC, CMVM, CMIS, TOXOG, TOXOM, HOCYS #### [place] [address] Solar Systems Designer: Tanvir Macias MD #### APTMUT, AF5MUT, AMTHFR, ACOXA9, APARVP, ACOXAB #### [facility] [address] [place], [place] [id number] Solar Systems Designer: MD Tatum Santoyo B4 1:320 Abnormal <1:10 [facility] Comment on above: Performed By: #### C MVG, LUPPRO, AT3A, PROCAC, PROSAC, CMVM, CMIS, TOXOG, TOXOM, HOCYS #### [facility] [address] [place] [id number] Solar Systems Designer: Tanvir Macias MD #### APTMUT, AF5MUT, AMTHFR, ACOXA9, APARVP, ACOXAB #### [facility] [address] [place], [place] [id number] Solar Systems Designer: MD Tatum Santoyo B5 <1:10 Normal <1:10 [facility] Comment on above: Performed By: #### C MVG, LUPPRO, AT3A, PROCAC, PROSAC, CMVM, CMIS, TOXOG, TOXOM, HOCYS #### [address] [id number] Solar Systems Designer: Tanvir Macias MD #### APTMUT, AF5MUT, AMTHFR, ACOXA9, APARVP, ACOXAB #### [address] [address] Solar Systems Designer: Enrique Arthur MD Coxsackie tp. B6 <1:10 Normal <1:10 [facility] Comment on above: Result Comment: (NOT E) INTERPRETIVE INFORMATION: Coxsackie B Virus Single positive antibody titers of greater than or equal to 1:80 may indicate past or current infection. Sero- conversion or an increase in titers between acute and convalescent sera of at least fourfold is considered strong evidence of current or recent infection. Performed By: [email or web address] [address] [place] [address] Correctional Officer Lieutenant: Nadeem Mcarthur MD, PhD CLIA Number: [id number] Performed By: #### C MVG, LUPPRO, AT3A, PROCAC, PROSAC, CMVM, CMIS, TOXOG, TOXOM, HOCYS #### [address] [id number] Solar Systems Designer: Tanvir Macias MD #### APTMUT, AF5MUT, AMTHFR, ACOXA9, APARVP, ACOXAB #### [address] [address] Solar Systems Designer: Enrique Arthur MD Factor V Mutationon 10-22-19 24 F 5 SPECIMEN Whole Blood Normal [facility] Comment on above: Performed By: #### C MVG, LUPPRO, AT3A, PROCAC, PROSAC, CMVM, CMIS, TOXOG, TOXOM, HOCYS #### [address] [id number] Solar Systems Designer: Tanvir Macias MD #### APTMUT, AF5MUT, AMTHFR, ACOXA9, APARVP, ACOXAB #### [facility] [address] [place] [address] Solar Systems Designer: Enrique Arthur MD FACTOR 5 MUTATION Negative Normal [facility] Comment on above: Result Comment: (NOT E) Indication for testing: Assess genetic risk for thrombosis. NEGATIVE: The factor V Leiden variant, c.1601G>A; p.Pcj730Opn, was not detected. This does not exclude [...] function in the F5 gene variant c.1601G>A (p.Sjy107Xuz). Legacy nomenclature: [id number] (1691G>A) CLINICAL SENSITIVITY: 20-50 percent of individuals with an isolated VTE have the FVL variant. METHODOLOGY: Polymerase chain reaction and fluorescence monitoring. ANALYTICAL SENSITIVITY AND SPECIFICITY: 99 percent. LIMITATIONS: Diagnostic errors can occur due to rare sequence variations. F5 gene mutations, other than p.Kkr688Hib, will not be detected. This test was developed and its performance characteristics determined by [facility]. It has not been cleared or approved by the [place] Food and Drug Administration. This test was performed in a CLIA certified laboratory and is intended for clinical purposes. Counseling and informed consent are recommended for genetic testing. Consent forms are available online. Performed By: [facility] [address] [place] [address] Correctional Officer Lieutenant: Nadeem Mcarthur MD, PhD CLIA Number: [id number] Performed By: #### C MVG, LUPPRO, AT3A, PROCAC, PROSAC, CMVM, CMIS, TOXOG, TOXOM, HOCYS #### [address] [address] Solar Systems Designer: Tanvir Macias MD #### APTMUT, AF5MUT, AMTHFR, ACOXA9, APARVP, ACOXAB #### [address] [address] Solar Systems Designer: Enrique Arthur MD Coxsackie A9 Titeron 024 Coxsackie A9 Titer <1:8 Normal <1:8 [facility] Comment on above: Result Comment: (NOT E) INTERPRETIVE INFORMATION: Coxsackie A Serotype 9 Titer Single positive antibody titers of greater than 1:32 may indicate past or current infection. Seroconversion or an increase in titers between acute and convalescent sera of at least fourfold is considered strong evidence of current or recent infection. Performed By: [email or web address] [address] [place] [address] Correctional Officer Lieutenant: Nadeem Mcarthur MD, PhD CLIA Number: [id number] Performed By: #### C MVG, LUPPRO, AT3A, PROCAC, PROSAC, CMVM, CMIS, TOXOG, TOXOM, HOCYS #### [address] [address] Solar Systems Designer: Tanvir Macias MD #### APTMUT, AF5MUT, AMTHFR, ACOXA9, APARVP, ACOXAB #### [facility] [address] [place] [address] Solar Systems Designer: Enrique Arthur MD MTHFR Gene Mutationon 2023 MTHFR 1286 A>C Mut Negative Normal [facility] Comment on above: Performed By: #### C MVG, LUPPRO, AT3A, PROCAC, PROSAC, CMVM, CMIS, TOXOG, TOXOM, HOCYS #### [facility] [address] [place] [phone] Solar Systems Designer: Tanvir Macias MD #### APTMUT, AF5MUT, AMTHFR, ACOXA9, APARVP, ACOXAB #### [facility] [address] [place], [place] [id number] Solar Systems Designer: Enrique Arthur MD MTHFR 655C>T Mut Heterozygous Normal [facility] Comment on above: Performed By: #### C MVG, LUPPRO, AT3A, PROCAC, PROSAC, CMVM, CMIS, TOXOG, TOXOM, HOCYS #### [address] [address] Solar Systems Designer: Tanvir Macias MD #### APTMUT, AF5MUT, AMTHFR, ACOXA9, APARVP, ACOXAB #### [facility] [address] [place] [address] Solar Systems Designer: Enrique Arthur MD MTHFR Interpretation See Note Normal [facility] Comment on above: Result Comment: (NOT E) Indication for testing: Determine genetic contribution to hyperhomocysteinemia. Heterozygous MTHFR c.665C>T: One copy of the MTHFR variant c.665C>T (previously designated C677T) was detected; the c.1286A>C (previously designated Y6245N) variant was not identified. The common variant [...] a contributing factor to hyperhomocysteinemia. Variants Tested: c.665C>T(p.Dyo419Lox) and c.1286A>C(p.Jgv957Blu). (legacy names C677T and U0146X, respectively). Clinical Sensitivity: Undefined; hyperhomocysteinemia is caused [...] developed and its performance characteristics determined by [facility]. It has not been cleared or approved by the [place] Food and Drug Administration. This test was performed in a CLIA certified laboratory and is intended for clinical purposes. Counseling and informed consent are recommended for genetic testing. Consent forms are available online. Performed By: [facility] [address] [place] [address] Correctional Officer Lieutenant: Nadeem Mcarthur MD, PhD CLIA Number: [id number] Performed By: #### C MVG, LUPPRO, AT3A, PROCAC, PROSAC, CMVM, CMIS, TOXOG, TOXOM, HOCYS #### [facility] [address] [place], [place] [id number] Solar Systems Designer: Tanvir Macias MD #### APTMUT, AF5MUT, AMTHFR, ACOXA9, APARVP, ACOXAB #### [facility] [address] [place], [place] [id number] Solar Systems Designer: Enrique Arthur MD MTHFR SPECIMEN Whole Blood Normal [facility] Comment on above: Performed By: #### C MVG, LUPPRO, AT3A, PROCAC, PROSAC, CMVM, CMIS, TOXOG, TOXOM, HOCYS #### [facility] [address] [place] [address] [phone] Solar Systems Designer: Tanvir Macias MD #### APTMUT, AF5MUT, AMTHFR, ACOXA9, APARVP, ACOXAB #### [facility] [address] [place], [place] [id number] Solar Systems Designer: Enrique Arthur MD PT Mutation [id number] 10-21-19 24 PT [id number] VARIANT Negative Normal [facility] Comment on above: Result Comment: (NOT E) Indication for testing: Assess genetic risk for thrombosis. NEGATIVE: The Factor II, prothrombin L96684N mutation, was not detected. Other causes of [...] Quintana, Ph.D. BACKGROUND INFORMATION: Prothrombin (F2) c.*97G>A (V42556E) Pathogenic Variant CHARACTERISTICS: The Factor II, c.*97G>A (S50536V) pathogenic variant is a common genetic risk [...] CAUSE: Homozygosity or heterozygosity for F2 c.*97G>A (M44272J). PATHOGENIC VARIANT TESTED: F2 c.*97G>A (V42132A). CLINICAL SENSITIVITY FOR VENOUS THROMBOSIS: Approximately 10 percent. METHODOLOGY: Polymerase chain reaction and fluorescence monitoring. ANALYTICAL SENSITIVITY AND SPECIFICITY: 99 percent. LIMITATIONS: Diagnostic errors can occur due to rare sequence variations. F2 gene variants, other than c.*97G>A (P06162S), will not be detected. This test was developed and its performance characteristics determined by [facility]. It has not been cleared or approved by the [place] Food and Drug Administration. This test was performed in a CLIA certified laboratory and is intended for clinical purposes. Counseling and informed consent are recommended for genetic testing. Consent forms are available online. Performed By: [facility] [address] [place] [address] Correctional Officer Lieutenant: Nadeem Mcarthur MD, PhD CLIA Number: [id number] Performed By: #### C MVG, LUPPRO, AT3A, PROCAC, PROSAC, CMVM, CMIS, TOXOG, TOXOM, HOCYS #### [facility] [address] [address] Solar Systems Designer: Tanvir Macias MD #### APTMUT, AF5MUT, AMTHFR, ACOXA9, APARVP, ACOXAB #### [facility] [address] [place] [address] Solar Systems Designer: Enrique Arthur MD PT PCR SPECIMEN Whole Blood Normal [facility] Comment on above: Performed By: #### C MVG, LUPPRO, AT3A, PROCAC, PROSAC, CMVM, CMIS, TOXOG, TOXOM, HOCYS #### [facility] [address] [place] [phone] Solar Systems Designer: Tanvir Macias MD #### APTMUT, AF5MUT, AMTHFR, ACOXA9, APARVP, ACOXAB #### [facility] [address] [place] [address] Solar Systems Designer: Enrique Arthur MD Parvovirus B19 Panelon 10-21 Parvovirus IgG B19 1.80 IV High <=0.90 [facility] Comment on above: Result [...] PROSAC, CMVM, CMIS, TOXOG, TOXOM, HOCYS #### [facility] [address] [place] [address] [phone] Solar Systems Designer: Tanvir Macias MD #### APTMUT, AF5MUT, AMTHFR, ACOXA9, APARVP, ACOXAB #### [facility] [address] [place] [address] Solar Systems Designer: Enrique Arthur MD Parvovirus IgM B19 0.12 IV Normal <=0.90 [facility] Comment on above: Result Comment: (NOT E) INTERPRETIVE INFORMATION: Parvovirus B19 Antibody, IgM EFFECTIVE 07/04/2023 REFERENCE INTERVAL CHANGE Due to reagent kit machining supervisor recall, an alternate kit has been [...] levels of specific IgM antibodies. Performed By: [facility] [address] [place] [address] Correctional Officer Lieutenant: Nadeem Mcarthur MD, PhD CLIA Number: [id number] Performed By: #### C MVG, LUPPRO, AT3A, PROCAC, PROSAC, CMVM, CMIS, TOXOG, TOXOM, HOCYS #### [employer] [address] [place] [address] Solar Systems Designer: Tanvir Macias MD #### APTMUT, AF5MUT, AMTHFR, ACOXA9, APARVP, ACOXAB #### [facility] [employer] [address] [place] [address] Solar Systems Designer: Enrique Arthur MD Antithrombin III Becka 10-18 Antithrombin III Act 106 % Normal 83-122 [facility] Comment on above: Result Comment: Patients receiving Hirudin may have a falsely decreased Antitrombin III Activity. Performed By: #### C MVG, LUPPRO, AT3A, PROCAC, PROSAC, CMVM, CMIS, TOXOG, TOXOM, HOCYS #### [facility] [address] [place] [address] [phone] Solar Systems Designer: Tanvir Macias MD #### APTMUT, AF5MUT, AMTHFR, ACOXA9, APARVP, ACOXAB #### [facility] [address] [place], [place] [id number] Solar Systems Designer: Enrique Arthur MD Lupus Anticoagulanton 2023 Anticardiolipin IgA 2.4 APL Normal 0.0-14.0 [facility] Comment on above: Result Comment: Reference Range: <14.0 Negative 14.0-20.0 Equivocal >20.0 Positive When results are Equivocal, it is recommended to retest after 4-6 weeks. Performed By: #### C MVG, LUPPRO, AT3A, PROCAC, PROSAC, CMVM, CMIS, TOXOG, TOXOM, HOCYS #### [address] [phone] Solar Systems Designer: Tanvir Macias MD #### APTMUT, AF5MUT, AMTHFR, ACOXA9, APARVP, ACOXAB #### [facility] [address] [place] [address] Solar Systems Designer: Enrique Arthur MD Anticardiolipin IgG 2.8 GPL Normal 0.0-10.0 [facility] Comment on above: Result Comment: Reference Range: <10.0 Negative 10.0-40.0 Equivocal >40.0 Positive Performed By: #### C MVG, LUPPRO, AT3A, PROCAC, PROSAC, CMVM, CMIS, TOXOG, TOXOM, HOCYS #### [facility] [address] [place] [address] [phone] Solar Systems Designer: Tanvir Macias MD #### APTMUT, AF5MUT, AMTHFR, ACOXA9, APARVP, ACOXAB #### [facility] [address] [place] [address] Solar Systems Designer: Enrique Arthur MD Anticardiolipin IgM <0.8 Normal 0.0-10.0 [facility] Comment on above: Result Comment: Reference Range: <10.0 Negative 10.0-40.0 Equivocal >40.0 Positive Performed By: #### C MVG, LUPPRO, AT3A, PROCAC, PROSAC, CMVM, CMIS, TOXOG, TOXOM, HOCYS #### [address] [address] [employer] Designer: Tanvir Macias MD #### APTMUT, AF5MUT, AMTHFR, ACOXA9, APARVP, ACOXAB #### [facility] [address] [place], [place] [id number] Solar Systems Designer: Enirque Arthur MD Dilute Austin Viper Negative Normal [facility] Comment on above: Performed By: #### C MVG, LUPPRO, AT3A, PROCAC, PROSAC, CMVM, CMIS, TOXOG, TOXOM, HOCYS #### [address] [address] [employer] Designer: Tanvir Macias MD #### APTMUT, AF5MUT, AMTHFR, ACOXA9, APARVP, ACOXAB #### [facility] [address] [place], [place] [id number] Solar Systems Designer: Enrique Arthur MD Miscellaneouson 10-18-2023 Send Out Report [employer] [employer] [id number] Normal [facility] Comment on above: Result Comment: UNIT Y Performed By: #### C MVG, LUPPRO, AT3A, PROCAC, PROSAC, CMVM, CMIS, TOXOG, TOXOM, HOCYS #### [address] [address] [employer] Designer: Tanvir Macias MD #### APTMUT, AF5MUT, AMTHFR, ACOXA9, APARVP, ACOXAB #### [facility] [address] [place] [address] [employer] Systems Designer: Enrique Arthur MD Protein C Activityon 024 Protein C Activity 91 % Normal >80 [facility] Comment on above: Result [...] PROSAC, CMVM, CMIS, TOXOG, TOXOM, HOCYS #### [employer] [address] [place] [id number] [employer] Systems Designer: Tanvir Macias MD #### APTMUT, AF5MUT, AMTHFR, ACOXA9, APARVP, ACOXAB #### [facility] [address] [place] [id number] [employer] Systems Designer: Enrique Arthur MD Protein S Activityon 024 Protein S Activity 79 % Normal 59-130 [facility] Comment on above: Result [...] CMIS, TOXOG, TOXOM, HOCYS #### [facility] [address] [place] [id number] [employer] Systems Designer: Tanvir Macias MD #### APTMUT, AF5MUT, AMTHFR, ACOXA9, APARVP, ACOXAB #### [facility] [address] [place] [id number] [employer] Systems Designer: Enrique Arthur MD Toxoplasma Ab,IgGon 10-18-19 24 Toxoplasma Ab,IgG 1.2 IU/mL Normal [facility] Comment on above: Result Comment: REFERENCE RANGE: [...] PROSAC, CMVM, CMIS, TOXOG, TOXOM, HOCYS #### [address] [address] [employer] Systems Designer: Tanvir Macias MD #### APTMUT, AF5MUT, AMTHFR, ACOXA9, APARVP, ACOXAB #### [facility] [address] [place], [place] [id number] Solar Systems Designer: Enrique Arthur MD Toxoplasma Ab,IgMon 10-18-19 24 Toxoplasma Ab,IgM 0.56 Index Normal [facility] Comment on above: Result Comment: REFERENCE RANGE: <0.90 NON-REACTIVE 0.90 TO 0.99 INDETERMINANT >=1.00 REACTIVE Performed By: #### C MVG, LUPPRO, AT3A, PROCAC, PROSAC, CMVM, CMIS, TOXOG, TOXOM, HOCYS #### [facility] [employer] [address] [place] [id number] Solar Systems Designer: Tanvir Macias MD #### APTMUT, AF5MUT, AMTHFR, ACOXA9, APARVP, ACOXAB #### [facility] [address] [place], [place] [id number] Solar Systems Designer: Enrique Arthur MD CMV Ab,IgGon 10-17-2023 CMV Ab,IgG 523.0 High <0.5 [facility] Comment on above: Result [...] PROSAC, CMVM, CMIS, TOXOG, TOXOM, HOCYS #### [employer] [address] [place] [address] [employer] Systems Designer: Tanvir Macias MD #### APTMUT, AF5MUT, AMTHFR, ACOXA9, APARVP, ACOXAB #### [address] [address] Solar Systems Designer: Enrique Arthur MD CMV Ab,IgMon 10-17-2023 CMV Ab,IgM 0.2 Normal <0.7 [facility] Comment on above: Result [...] PROSAC, CMVM, CMIS, TOXOG, TOXOM, HOCYS #### [employer] [address] [place] [address] [employer] Systems Designer: Tanvir Macias MD #### APTMUT, AF5MUT, AMTHFR, ACOXA9, APARVP, ACOXAB #### [facility] [address] [place] [address] [employer] Systems Designer: Enrique Arthur MD Homocysteineon Homocysteine 5.7 umol/L Normal <15.0 [facility] Comment on above: Performed By: #### C MVG, LUPPRO, AT3A, PROCAC, PROSAC, CMVM, CMIS, TOXOG, TOXOM, HOCYS #### [facility] [address] [place] [id number] [employer] Systems Designer: Tanvir Macias MD #### APTMUT, AF5MUT, AMTHFR, ACOXA9, APARVP, ACOXAB #### [facility] [address] [place] [address] [employer] Systems Designer: Enrique Arthur MD Lupus Anticoagulanton 7 aPTT Coag (Bld) [Time] 27.6 s Normal 23.0-36.5 [facility] Comment on above: Result Comment: IV Heparin Therapy Range: 66.0-92.0 sec Performed By: #### C MVG, LUPPRO, AT3A, PROCAC, PROSAC, CMVM, CMIS, TOXOG, TOXOM, HOCYS #### [address] [address] [employer] Systems Designer: Tanvir Macias MD #### APTMUT, AF5MUT, AMTHFR, ACOXA9, APARVP, ACOXAB #### [facility] [address] [place] [address] [employer] Designer: Enrique Arthur MD INR Coag (PPP) [Relative time] 1.0 {INR} Normal [facility] Comment on above: Result Comment: Therapeutic Range: Moderate Anticoagulant Intensity: INR = 2.0-3.0 High Anticoagulant Intensity: INR = 2.5-3.5 Performed By: #### C MVG, LUPPRO, AT3A, PROCAC, PROSAC, CMVM, CMIS, TOXOG, TOXOM, HOCYS #### [facility] [place] [address] Solar Systems Designer: Tanvir Macias MD #### APTMUT, AF5MUT, AMTHFR, ACOXA9, APARVP, ACOXAB #### [facility] [address] [place] [address] [employer] Designer: Enrique Arthur MD PT Coag (PPP) [Time] 13.5 s Normal 11.7-14.9 [facility] Comment on above: Performed By: #### C MVG, LUPPRO, AT3A, PROCAC, PROSAC, CMVM, CMIS, TOXOG, TOXOM, HOCYS #### [facility] [address] [place] [id number] [employer] Systems Designer: Tanvir Macias MD #### APTMUT, AF5MUT, AMTHFR, ACOXA9, APARVP, ACOXAB #### [facility] [address] [place] [address] [employer] Designer: Enrique Arthur MD Basic Metabolic Panelon Glucose [Mass/Vol] 97 mg/dL [facility] CBC without diffOrdered By: Mayra Victoria on 07-26-2023 Hematocrit (Bld) [Volume fraction] 34.8 % [facility] Hemoglobin (Bld) [Mass/Vol] 11.3 g/dL [facility] Platelets (Bld) [#/Vol] 292 10*3/uL [facility] Rbc Mcv (Fl) By Automated Count 83.5 [facility] HIV 1&2 AB/AG Screen (P24 AG )on 07-26-2023 HIV 1&2 AB/AG Non-Reactive [facility] Hemoglobin A1con 07-26-2023 HbA1c (Bld) [Mass fraction] 5.0 % 4.0 - 6.0 % [facility] Hepatitis B surface antigeno n 07-26-2023 Hepatitis B Surface Antigen Negative [facility] No Panel InformationOrdered By: Mayra Melgars on 07-26-2023 [facility] Rubella IGG immune statuson 07-26-2023 Rubella immune IgG 5.26 [facility] Syphilis Total(Unknown Syphi lis Status)on 07-26-2023 Syphilis Non-Reactive [facility] TSHon 07-26-2023 TSH Qn 1.99 m[IU]/L [facility] Type and screenon 07-26-2023 Abo/Rh(D) Positive [facility] CBC AUTO DIFFon 07-28-2022 BASO # 0.0 103/ul Normal 0.0-0.1 [facility] Comment on above: Performed By: #### H CVPCRR #### [facility] [address] [place] [address] Dr. Carleen Underwood Basophils/100 WBC (Bld) 0.3 % Normal 0.2-2.0 [facility] Comment on above: Performed By: #### H CVPCRR #### [facility] [address] [address] [address] Carleen Underwood EO # 0.2 103/ul Normal 0.0-0.7 [facility] Comment on above: Performed By: #### H CVPCRR #### [facility] [address] [place] [address] Dr. Carleen Underwood Eosinophils/100 WBC (Bld) 1.5 % Normal 0.9-7.0 [facility] Comment on above: Performed By: #### H CVPCRR #### [facility] [address] [place] [address] Dr. Carleen Underwood Erythrocyte distribution width (RBC) [Ratio] 14.9 % Normal 11.0-15.0 [facility] Comment on above: Performed By: #### H CVPCRR #### [facility] [address] [place] [address] Dr. Carleen Underwood Hematocrit (Bld) [Volume fraction] 30.7 % Critically low 36.0-48.0 [facility] Comment on above: Performed By: #### H CVPCRR #### [facility] [address] [address] [address] Carleen Underwood Hemoglobin (Bld) [Mass/Vol] 9.4 g/dL Critically low 12.0-16.0 [facility] Comment on above: Performed By: #### H CVPCRR #### [facility] [address] [address] [address] Carleen Underwodo IG # 0.07 10e3/ul Critically high 0.00-0.03 [facility] Comment on above: Performed By: #### H CVPCRR #### [facility] [address] [address] [address] Carleen Underwood IG % 0.6 % Critically high 0.0-0.5 [facility] Comment on above: Performed By: #### H CVPCRR #### [facility] [address] [place] [address] Dr. Carleen Underwood LYMPH # 2.7 103/ul Normal 1.2-3.8 [facility] Comment on above: Performed By: #### H CVPCRR #### [facility] [address] [address] [address] Carleen Underwood Lymphocytes/100 WBC (Bld) 24.1 % Normal 20.5-60.0 [facility] Comment on above: Performed By: #### H CVPCRR #### [facility] [address] [address] [address] Carleen Underwood MANUAL DIFF REQ NO Normal [facility] Comment on above: Performed By: #### H CVPCRR #### [facility] [address] [address] [address] Carleen Underwood MCH (RBC) [Entitic mass] 23.3 pg Critically low 26.7-34.0 [facility] Comment on above: Performed By: #### H CVPCRR #### [facility] [address] [place] [address] Dr. Carleen Underwood MCHC (RBC) [Mass/Vol] 30.6 g/dL Normal 29.9-35.2 [facility] Comment on above: Performed By: #### H CVPCRR #### [facility] [address] [address] [address] Carleen Underwood MCV (RBC) [Entitic vol] 76.2 fL Critically low 81.0-99.0 [facility] Comment on above: Performed By: #### H CVPCRR #### [facility] [address] [address] [address] Carleen Underwood MONO # 0.7 103/ul Normal 0.3-0.8 [facility] Comment on above: Performed By: #### H CVPCRR #### [facility] [address] [address] [address] Carleen Underwood Monocytes/100 WBC (Bld) 5.8 % Normal 1.7-12.0 [facility] Comment on above: Performed By: #### H CVPCRR #### [facility] [address] [place] [address] Dr. Carleen Underowod NEUT # 7.6 103/ul Critically high 1.4-6.5 [facility] Comment on above: Performed By: #### H CVPCRR #### [facility] [address] [place] [address] Dr. Carleen Underwood Neutrophils/100 WBC (Bld) 67.7 % Normal 43.0-75.0 [facility] Comment on above: Performed By: #### H CVPCRR #### [facility] [address] [place] [address] Dr. Carleen Underwood Platelet mean volume (Bld) [Entitic vol] 11.1 fL Normal 9.5-13.5 [facility] Comment on above: Performed By: #### H CVPCRR #### [facility] [address] [place] [address] Dr. Carleen Underwood PLT 242 103/ul Normal 150-450 [facility] Comment on above: Performed By: #### H CVPCRR #### [facility] [address] [place] [address] Dr. Carleen Underwood RBC 4.03 106/ul Critically low 4.20-5.40 [facility] Comment on above: Performed By: #### H CVPCRR #### [facility] [address] [place] [address] Dr. Carleen Underwood WBC 11.2 103/ul Critically high 4.0-11.0 [facility] Comment on above: Performed By: #### H CVPCRR #### [facility] [address] [place] [address] Dr. Carleen Underwood CBC AUTO DIFFon 07-27-2022 BASO # 0.0 103/ul Normal 0.0-0.1 [facility] Comment on above: Performed By: #### G LU1HR #### [facility] [address] [place] [address] Dr. Carleen Underwood Basophils/100 WBC (Bld) 0.5 % Normal 0.2-2.0 [facility] Comment on above: Performed By: #### G LU1HR #### [facility] [address] [place] [address] Dr. Carleen Underwood EO # 0.1 103/ul Normal 0.0-0.7 [facility] Comment on above: Performed By: #### G LU1HR #### [facility] [address] [place] [address] Dr. Carleen Underwood Eosinophils/100 WBC (Bld) 1.2 % Normal 0.9-7.0 [facility] Comment on above: Performed By: #### G LU1HR #### [facility] [address] [place] [address] Dr. Carleen Underwood Erythrocyte distribution width (RBC) [Ratio] 14.9 % Normal 11.0-15.0 [facility] Comment on above: Performed By: #### G LU1HR #### [facility] [address] [place] [address] Dr. Carleen Underwood Hematocrit (Bld) [Volume fraction] 29.6 % Critically low 36.0-48.0 [facility] Comment on above: Performed By: #### G LU1HR #### [facility] [address] [place] [address] Dr. Carleen Underwood Hemoglobin (Bld) [Mass/Vol] 9.3 g/dL Critically low 12.0-16.0 [facility] Comment on above: Performed By: #### G LU1HR #### [facility] [address] [place] [address] Dr. Carleen Underwood IG # 0.04 10e3/ul Critically high 0.00-0.03 [facility] Comment on above: Performed By: #### G LU1HR #### [facility] [address] [place] [address] Dr. Carleen Underwood IG % 0.5 % Normal 0.0-0.5 [facility] Comment on above: Performed By: #### G LU1HR #### [facility] [address] [place] [address] Dr. Carleen Undewrood LYMPH # 2.1 103/ul Normal 1.2-3.8 [facility] Comment on above: Performed By: #### G LU1HR #### [facility] [address] [place] [address] Dr. Carleen Underwood Lymphocytes/100 WBC (Bld) 25.5 % Normal 20.5-60.0 [facility] Comment on above: Performed By: #### G LU1HR #### [facility] [address] [place] [address] Dr. Carleen Underwood MANUAL DIFF REQ NO Normal [facility] Comment on above: Performed By: #### G LU1HR #### [facility] [address] [place] [address] Dr. Carleen Underwood MCH (RBC) [Entitic mass] 23.2 pg Critically low 26.7-34.0 [facility] Comment on above: Performed By: #### G LU1HR #### [facility] [address] [place] [address] Dr. Carleen Underwood MCHC (RBC) [Mass/Vol] 31.4 g/dL Normal 29.9-35.2 [facility] Comment on above: Performed By: #### G LU1HR #### [facility] [address] [place] [address] Dr. Carleen Underwood MCV (RBC) [Entitic vol] 73.8 fL Critically low 81.0-99.0 [facility] Comment on above: Performed By: #### G LU1HR #### [facility] [address] [place] [address] Dr. Carleen Underwood MONO # 0.5 103/ul Normal 0.3-0.8 [facility] Comment on above: Performed By: #### G LU1HR #### [facility] [address] [place] [address] Dr. Carleen Underwood Monocytes/100 WBC (Bld) 6.2 % Normal 1.7-12.0 [facility] Comment on above: Performed By: #### G LU1HR #### [facility] [address] [place] [address] Dr. Carleen Underwood NEUT # 5.4 103/ul Normal 1.4-6.5 [facility] Comment on above: Performed By: #### G LU1HR #### [facility] [address] [place] [address] Dr. Carleen Underwood Neutrophils/100 WBC (Bld) 66.1 % Normal 43.0-75.0 [facility] Comment on above: Performed By: #### G LU1HR #### [facility] [address] [place] [address] Dr. Carleen Underwood Platelet mean volume (Bld) [Entitic vol] 11.3 fL Normal 9.5-13.5 [facility] Comment on above: Performed By: #### G LU1HR #### [facility] [address] [place] [address] Dr. Carleen Underwood PLT 238 103/ul Normal 150-450 [facility] Comment on above: Performed By: #### G LU1HR #### [facility] [address] [place] [address] Dr. Carleen Underwood RBC 4.01 106/ul Critically low 4.20-5.40 [facility] Comment on above: Performed By: #### G LU1HR #### [facility] [address] [place] [address] Dr. Carleen Underwood WBC 8.2 103/ul Normal 4.0-11.0 [facility] Comment on above: Performed By: #### G LU1HR #### [facility] [address] [place] [address] Dr. Carleen Underwood Covid-19 PCR ([facility])on SARS-CoV-2 (COVID-19) RNA HUY+probe Ql (Unsp spec) Not detected Normal NOT DETECTED [facility] Comment on above: Result Comment: [...] for this test is supported by the Clinic Nurse of Health and Human Service's declaration that [...] used). Performed By: #### H CVPCRR #### [facility] [address] [place] [address] Dr. Carleen Underwood DRUG SCREEN RAPID (URINE)on 07-27-2022 AMP Negative Normal NEGATIVE [facility] Comment on above: Performed By: #### G TT3P #### [facility] [address] [place] [address] Dr. Carleen Underwood BAR Negative Normal NEGATIVE [facility] Comment on above: Performed By: #### G TT3P #### [facility] [address] [place] [address] Dr. Carleen Underwood BUP Negative Normal NEGATIVE [facility] Comment on above: Performed By: #### G TT3P #### [facility] [address] [place] [address] Dr. Carleen Underwood BZO Negative Normal NEGATIVE [facility] Comment on above: Performed By: #### G TT3P #### [facility] [address] [place] [address] Dr. Carleen Underwood EMIGDIO Negative Normal NEGATIVE [facility] Comment on above: Performed By: #### G TT3P #### [facility] [address] [place] [address] Dr. Carleen Underwood CUT-OFFS SEE BELOW Normal [facility] Comment on above: Result Comment: AMP [...] ng/mL Performed By: #### G TT3P #### [facility] [address] [place] [address] Dr. Carleen Underwood DRUG CUT HEADER DRUG CLASS TEST SYST EM CUT-OFF CONCENTRATIONS ARE FOLLOWS: Normal [facility] Comment on above: Performed By: #### G TT3P #### [facility] [address] [place] [address] Dr. Carleen Underwood mAMP Negative Normal NEGATIVE [facility] Comment on above: Performed By: #### G TT3P #### [facility] [address] [place] [address] Dr. Carleen Underwood MTD Negative Normal NEGATIVE [facility] Comment on above: Performed By: #### G TT3P #### [facility] [address] [place] [address] Dr. Carleen Underwood OPI Negative Normal NEGATIVE [facility] Comment on above: Performed By: #### G TT3P #### [facility] [address] [place] [address] Dr. Carleen Underwood OXY Negative Normal NEGATIVE [facility] Comment on above: Performed By: #### G TT3P #### [facility] [address] [address] [address] Carleen Underwood PCP Negative Normal NEGATIVE [facility] Comment on above: Performed By: #### G TT3P #### [facility] [address] [address] [address] Carleen Underwood PPX Negative Normal NEGATIVE [facility] Comment on above: Performed By: #### G TT3P #### [facility] [address] [address] [address] Carleen Underwood TCA Negative Normal NEGATIVE [facility] Comment on above: Performed By: #### G TT3P #### [facility] [address] [address] [address] Carleen Underwood THC Negative Normal NEGATIVE [facility] Comment on above: Performed By: #### G TT3P #### [facility] [address] [address] [address] Carleen Underwood TYPE AND SCREENon 07-27-2022 TYPE AND SCREEN Negative Normal [facility] Comment on above: Performed By: #### G TT3P #### [facility] [address] [address] [address] Carleen Underwood US PREG AMNIOTIC FLUID [...] FOUZIA CALERO Date: 2022-07-12 16:24 Normal [facility] US PREG BIOPHY W NON [...] BRANDI ANN Date: 2022-07-09 16:35 Normal [facility] US PREG BIOPHY W NON [...] FOUZIA CALERO Date: 2022-07-06 17:28 Normal [facility] GROUP B STREP CULTUREon 06-26 S. agalactiae Ag Ql (Unsp spec) Culture Observations: NEGATIVE FOR GROUP B STREPTOCOCCUS. Normal [facility] Comment on above: Performed By: #### G TT3P #### [facility] [address] [place] [address] Dr. Carleen Underwood US PREG GROWTHon 07-05-2022 [...] Marroquin was notified of these findings by radiology transcriptionist at time of imaging. 3. Biparietal diameter is at 8th percentile. Electronically authenticated by: FOUZIA CALERO Date: 2022-07-05 16:[address] [facility] PREG GROWTHon 06-11-2022 US PREG GROWTH EXAMINATION: [...] FOUZIA CALERO Date: 2022-06-11 16:22 Normal [facility] US PREG INCOMPLETE ANATOMYon 06-11-2022 US [...] FOUZIA CALERO Date: 2022-06-11 16:20 Normal [facility] US PREG INCOMPLETE ANATOMYon 05-14-2022 US [...] FOUZIA CALERO Date: 2022-05-14 17:15 Normal [facility] GTT 3 HR PREGon 04-24-2022 Glucose [Mass/Vol] 91 mg/dL Normal 74-106 [facility] Comment on above: Performed By: #### G TT3P #### [facility] [address] [address] [address] Carleen Underwood Glucose [Mass/Vol] 141 mg/dL Normal [facility] Comment on above: Performed By: #### G TT3P #### [facility] [address] [address] [address] Carleen Underwood Glucose [Mass/Vol] 103 mg/dL Normal [facility] Comment on above: Performed By: #### G TT3P #### [facility] [address] [address] [address] Carleen Underwood Glucose [Mass/Vol] 75 mg/dL Normal [facility] Comment on above: Performed By: #### G TT3P #### [facility] [address] [address] [address] Carleen Underwood US PREG INCOMPLETE ANATOMYon [...] cervical os Normal ventricular outflow tracts Normal [facility] PAP ACOG PANEL 2: 30 to 65on 04-20-2022 . . Normal [facility] Comment on above: Result Comment: Perf ormed at: WB Performed By: #### [id number] #### [facility] [address] [address] [address] Carleen Underwood Age Gdln ACOG Testing -65 Normal [facility] Comment on above: Performed By: #### [id number] #### [facility] [address] [address] [address] Carleen Underwood DIAGNOSIS: Comment Normal [facility] Comment on above: Result Comment: NEGA TIVE FOR INTRAEPITHELIAL LESION OR MALIGNANCY. Performed at: WB Performed By: #### [id number] #### [facility] [address] [place] [address] Dr. Carleen Underwood HPV Aptima Negative Normal Negative [facility] Comment on above: Result Comment: This nucleic acid amplification test detects fourteen high-risk HPV types (16,18,31,33,35,39,45,51,52,56,58,59,66,68) without differentiation. Performed at: =G Performed By: #### [id number] #### [facility] [address] [address] [address] Carleen Underwood Methodology: Comment Normal [facility] Comment on above: Result Comment: This liquid based ThinPrep(R) pap test was screened with the use of an image guided system. Performed at: WB Performed By: #### [id number] #### [facility] [address] [address] [address] Carleen Underwood Note: Comment Normal [facility] Comment on above: Result Comment: The Pap smear is a screening test designed to aid in the detection of premalignant and malignant conditions of the uterine cervix. It is not a diagnostic procedure and should not be used as the sole means of detecting cervical cancer. Both false-positive and false-negative reports do occur. . Performed at: WB Performed By: #### [id number] #### [facility] [address] [place] [address] Dr. Carleen Underwood Performed by: Comment Normal [facility] Comment on above: Result Comment: Carol Aguilar, Security Researcher Performed at: WB Performed By: #### [id number] #### [facility] [address] [place] [address] Dr. Carleen Underwood Specimen adequacy: Comment Normal [facility] Comment on above: Result Comment: Sati sfactory for evaluation. No endocervical component is identified. Performed at: WB Performed By: #### [id number] #### [facility] [address] [place] [address] Dr. Carleen Underwood CHLAMYDIA/GONOCOCCUS HUY ( AB/URINE/PAPon 04-19-2022 Chlamydia trachomatis, HUY Negative Normal Negative [facility] Comment on above: Performed By: #### H CVPCRR #### [facility] [address] [place] [address] Dr. Carleen Underwood Neisseria gonorrhoeae, HUY Negative Normal Negative [facility] Comment on above: Performed By: #### H CVPCRR #### [facility] [address] [place] [address] Dr. Carleen Underwood VAGINITIS/VAGINOSIS DNA PROB True 04-19-2022 Priya species Negative Normal Negative [facility] Comment on above: Performed By: #### G LU1HR #### [facility] [address] [place] [address] Dr. Carleen Underwood Gardnerella vaginalis Negative Normal Negative [facility] Comment on above: Performed By: #### G LU1HR #### [facility] [address] [place] [address] Dr. Carleen Underwood Trichomonas vaginalis Negative Normal Negative [facility] Comment on above: Performed By: #### G LU1HR #### [facility] [address] [place] [address] Dr. Carleen Underwood GLUCOSE - 1HRon 04-17-2022 Glucose [Mass/Vol] 150 mg/dL Critically high 74-106 [facility] Comment on above: Performed By: #### G LU1HR #### [facility] [address] [place] [address] Dr. Carleen Underwood HEMOGRAM AND PLATELon 2021 Hematocrit (Bld) [Volume fraction] 31.9 % Critically low 36.0-48.0 [facility] Comment on above: Performed By: #### H H #### [facility] [address] [place] [address] Dr. Carleen Underwood Hemoglobin (Bld) [Mass/Vol] 10.3 g/dL Critically low 12.0-16.0 [facility] Comment on above: Performed By: #### H H #### [facility] [address] [place] [address] Dr. Carleen Underwood MCH (RBC) [Entitic mass] 26.6 pg Critically low 26.7-34.0 [facility] Comment on above: Performed By: #### H H #### [facility] [address] [place] [address] Dr. Carleen Underwood MCHC (RBC) [Mass/Vol] 32.3 g/dL Normal 29.9-35.2 [facility] Comment on above: Performed By: #### H H #### [facility] [address] [place] [address] Dr. Carleen Underwood MCV (RBC) [Entitic vol] 82.4 fL Normal 81.0-99.0 [facility] Comment on above: Performed By: #### H H #### [facility] [address] [place] [address] Dr. Carleen Underwood PLT 233 103/ul Normal 150-450 [facility] Comment on above: Performed By: #### H H #### [facility] [address] [place] [address] Dr. Carleen Underwood RBC 3.87 106/ul Critically low 4.20-5.40 [facility] Comment on above: Performed By: #### H H #### [facility] [address] [place] [address] Dr. Carleen Underwood WBC 8.5 103/ul Normal 4.0-11.0 [facility] Comment on above: Performed By: #### H H #### [facility] [address] [address] [address] Carleen Underwood AFP MATERNAL FOR SPINA BIFID Aon 03-22-2022 AFP MoM 1.08 Normal [facility] Comment on above: Performed By: #### H CVPCRR #### [facility] [address] [address] [address] Carleen Underwood AFP Value 43.1 ng/mL Normal [facility] Comment on above: Performed By: #### H CVPCRR #### [facility] [address] [address] [address] Carleen Underwood AFP, Serum for Spina Bifida Report Normal [facility] Comment on above: Performed By: #### H CVPCRR #### [facility] [address] [address] [address] Carleen Underwood Comment Comment Normal [facility] Comment on above: Result Comment: Re Quick, Ph.D., [facility] Director . References: Available Upon Request. . Multiples Of Median Cutoffs For AFP Elevations [place] 2.5 Black 2.8 IDD 2.0 Twins 4.5 Abbreviation Definitions IDD - Insulin Dep Diabetes OSBR - Open Spina Bifida Risk . For further inquiries contact [employer] [facility] at [phone]. . This test was developed and its performance characteristics determined by [employer]. It has not been cleared or approved by the Food and Drug Administration. Performed By: #### H CVPCRR #### [facility] [address] [address] [address] Carleen Marie Age Collection Date 19.4 weeks Normal [facility] Comment on above: Performed By: #### H CVPCRR #### [facility] [address] [address] [address] Carleen Underwood Gestat, Age Based on LMP Normal [facility] Comment on above: Result Comment: Reca lculations are not recommended when gestational dating by LMP and ultrasound are within 10 days. Performed By: #### H CVPCRR #### [facility] [address] [address] [address] Carleen Underwood Insulin Dep Diabetes No Normal [facility] Comment on above: Performed By: #### H CVPCRR #### [facility] [address] [address] [address] Carleen Underwood Interpretation Comment Normal [facility] Comment on above: Result Comment: Inte [...] older. Performed By: #### H CVPCRR #### [facility] [address] [place] [address] Dr. Carleen Underwood [age] [facility] Comment on above: Performed By: #### H CVPCRR #### [facility] [address] [place] [address] Dr. Carleen Underwood Multiple Gestation No Normal [facility] Comment on above: Performed By: #### H CVPCRR #### [facility] [address] [place] [address] Dr. Carleen Underwood OSBR Risk 1 [place] 9540 [facility] Comment on above: Performed By: #### H CVPCRR #### [facility] [address] [place] [address] Dr. Carleen Underwood PDF . Normal [facility] Comment on above: Performed By: #### H CVPCRR #### [facility] [address] [place] [address] Dr. Carleen Underwood Race Normal [facility] Comment on above: Performed By: #### H CVPCRR #### [facility] [address] [place] [address] Dr. Carleen Underwood Test Results: Negative [facility] Comment on above: Performed By: #### H CVPCRR #### [facility] [address] [address] [address] Carleen Underwood US PREG ANATOMY SINGLEon [...] by: FOUZIA CALERO Date: 2022-03-19 17:04 Normal [facility] GLUCOSE - 1HRon 02-14-2022 Glucose [Mass/Vol] 107 mg/dL Critically high 74-106 [facility] Comment on above: Performed By: #### H CVPCRR #### [facility] [address] [place] [address] Dr. Carleen Underwood HEP B SURFACE ANTIGEN SCREEN on 01-13-2022 HBsAg Screen Negative Normal Negative [facility] Comment on above: Performed By: #### H BSANS #### [facility] [address] [place] [address] Dr. Carleen Underwood HEPATITIS C VIRUS AB W/ REFL EX QUANTon 01-13-2022 HCV AB <0.1 Normal 0.0-0.9 [facility] Comment on above: Performed By: #### H CVPCRR #### [facility] [address] [place] [address] Dr. Carleen Underwood Interpretation: Comment Normal [facility] Comment on above: Result Comment: Nega tive Not infected with HCV, unless recent infection is suspected or other evidence exists to indicate HCV infection. Performed By: #### H CVPCRR #### [facility] [address] [place] [address] Dr. Carleen Underwood HIV 1 AND 2 WITH REFLEXon HIV Screen 4th Generation wRfx Non-Reactive Normal Non Reactive [facility] Comment on above: Result Comment: HIV Negative HIV-1/HIV-2 antibodies and HIV-1 p24 antigen were NOT detected. There is no laboratory evidence of HIV infection. Performed By: #### G LU1HR #### [facility] [address] [place] [address] Dr. Carleen Underwood RPR QUANTon 01-13-2022 Rapid Plasma Reagin, Quant Non-Reactive Normal NonRea<1:1 [facility] Comment on above: Result Comment: Plea se Note: This test does not meet current guidelines for screening and diagnosis of syphilis. This test is intended for following treatment response in patients being treated for syphilis infection. To screen for syphilis infection, a reflex cascade that includes both RPR and a treponema-specific assay should be utilized, such as Treponema pallidum (Syphilis) Screening [place] (814621) or Rapid Plasma Reagin (RPR) Test With Reflex to Quantitative RPR and Confirmatory Treponema pallidum Antibodies (430809). Performed By: #### H CVPCRR #### [facility] [address] [place] [address] Dr. Carleen Underwood RUBELLA AB IGGon 01-13-2022 Rubella Antibodies, IgG 4.86 index Normal Immune >0.99 [facility] Comment on above: Result Comment: Non- immune <0.90 Equivocal 0.90 - 0.99 Immune >0.99 Performed By: #### R UBIGG #### [facility] [address] [place] [address] Dr. Carleen Underwood CBC AUTO DIFFon 01-12-2022 BASO # 0.0 103/ul Normal 0.0-0.1 [facility] Comment on above: Performed By: #### C BC #### [facility] [address] [place] [address] Dr. Carleen Underwood Basophils/100 WBC (Bld) 0.4 % Normal 0.2-2.0 [facility] Comment on above: Performed By: #### C BC #### [facility] [address] [place] [address] Dr. Carleen Underwood EO # 0.1 103/ul Normal 0.0-0.7 [facility] Comment on above: Performed By: #### C BC #### [facility] [address] [place] [address] Dr. Carleen Underwood Eosinophils/100 WBC (Bld) 1.1 % Normal 0.9-7.0 [facility] Comment on above: Performed By: #### C BC #### [facility] [address] [place] [address] Dr. Carleen Underwood Erythrocyte distribution width (RBC) [Ratio] 14.5 % Normal 11.0-15.0 [facility] Comment on above: Performed By: #### C BC #### [facility] [address] [place] [address] Dr. Carleen Underwood Hematocrit (Bld) [Volume fraction] 35.8 % Critically low 36.0-48.0 [facility] Comment on above: Performed By: #### C BC #### [facility] [address] [place] [address] Dr. Carleen Underwood Hemoglobin (Bld) [Mass/Vol] 11.2 g/dL Critically low 12.0-16.0 [facility] Comment on above: Performed By: #### C BC #### [facility] [address] [place] [address] Dr. Carleen Underwood IG # 0.02 10e3/ul Normal 0.00-0.03 [facility] Comment on above: Performed By: #### C BC #### [facility] [address] [place] [address] Dr. Carleen Underwood IG % 0.4 % Normal 0.0-0.5 [facility] Comment on above: Performed By: #### C BC #### [facility] [address] [place] [address] Dr. Carleen Underwood LYMPH # 1.6 103/ul Normal 1.2-3.8 [facility] Comment on above: Performed By: #### C BC #### [facility] [address] [place] [address] Dr. Carleen Underwood Lymphocytes/100 WBC (Bld) 27.9 % Normal 20.5-60.0 [facility] Comment on above: Performed By: #### C BC #### [facility] [address] [place] [address] Dr. Carleen Underwood MANUAL DIFF REQ NO Normal [facility] Comment on above: Performed By: #### C BC #### [facility] [address] [place] [address] Dr. Carleen Underwood MCH (RBC) [Entitic mass] 26.1 pg Critically low 26.7-34.0 [facility] Comment on above: Performed By: #### C BC #### [facility] [address] [place] [address] Dr. Carleen Underwood MCHC (RBC) [Mass/Vol] 31.3 g/dL Normal 29.9-35.2 [facility] Comment on above: Performed By: #### C BC #### [facility] [address] [place] [address] Dr. Carleen Underwood MCV (RBC) [Entitic vol] 83.4 fL Normal 81.0-99.0 [facility] Comment on above: Performed By: #### C BC #### [facility] [address] [address] [address] Carleen Underwood MONO # 0.4 103/ul Normal 0.3-0.8 [facility] Comment on above: Performed By: #### C BC #### [facility] [address] [place] [address] Dr. Carleen Underwood Monocytes/100 WBC (Bld) 6.2 % Normal 1.7-12.0 [facility] Comment on above: Performed By: #### C BC #### [facility] [address] [place] [address] Dr. Carleen Underwood NEUT # 3.7 103/ul Normal 1.4-6.5 [facility] Comment on above: Performed By: #### C BC #### [facility] [address] [place] [address] Dr. Carleen Underwood Neutrophils/100 WBC (Bld) 64.0 % Normal 43.0-75.0 [facility] Comment on above: Performed By: #### C BC #### [facility] [address] [place] [address] Dr. Carleen Underwood Platelet mean volume (Bld) [Entitic vol] 10.3 fL Normal 9.5-13.5 [facility] Comment on above: Performed By: #### C BC #### [facility] [address] [place] [address] Dr. Carleen Underwood PLT 229 103/ul Normal 150-450 [facility] Comment on above: Performed By: #### C BC #### [facility] [address] [place] [address] Dr. Carleen Underwood RBC 4.29 106/ul Normal 4.20-5.40 [facility] Comment on above: Performed By: #### C BC #### [facility] [address] [place] [address] Dr. Carleen Underwood WBC 5.7 103/ul Normal 4.0-11.0 [facility] Comment on above: Performed By: #### C BC #### [facility] [address] [place] [address] Dr. Carleen Underwood CULTURE URINEon 01-12-2022 CULTURE URINE Culture Observations : LIGHT GROWTH OF MIXED GENITAL YULI. NO POTENTIAL PATHOGENS SEEN. Normal [facility] Comment on above: Performed By: #### U RCX #### [facility] [address] [place] [address] Dr. Carleen Underwood GLYCOHEMOGLOBIN A1Con 2021 ADA RECOMMENDATION SEE BELOW Normal [facility] Comment on above: Result Comment: ADA RECOMMENDED LIMIT 4.0 - 6.0 ADA THERAPEUTIC TARGET < 7.0 ACTION SUGGESTED > 7.0 Performed By: #### G LU1HR #### [facility] [address] [place] [address] Dr. Carleen Underwood Glucose [Mass/Vol] 100 mg/dL Normal [facility] Comment on above: Performed By: #### G LU1HR #### [facility] [address] [place] [address] Dr. Carleen Underwood HbA1c (Bld) [Mass fraction] 5.1 % Normal 4.5-6.2 [facility] Comment on above: Performed By: #### G LU1HR #### [facility] [address] [place] [address] Dr. Carleen Underwood EMILY BOX TEST PT SEND OUTo n 01-12-2022 SENT TO REF LAB 01/12/2022 Normal [facility] Comment on above: Performed By: #### H CVPCRR #### [facility] [address] [place] [address] Dr. Carleen Underwood TYPE AND SCREENon 01-12-2022 TYPE AND SCREEN Negative Normal [facility] Comment on above: Performed By: #### T NS #### [facility] [address] [place] [address] Dr. Carleen Underwood US PREG TVon 12-29-2021 [...] by: BRANDI ANN Date: 2021-12-29 16:07 Normal [facility] Coding Summary.on 02-12-2020 Coding Summary. CODING DATE: 020 FINAL [facility] STATUS: Home (Routine DC) PAYOR: Commercial [...] Elizabeth Esquivel Date Saved: 02/12/2020 10:10 am [facility] Physician Orderon 02-07-2020 Physician Order [id number] Normal [facility] Vital Signs Date Time Vital Sign Value Performing Clinician Facility 07-15-2023 13:00-0500 Body height 170.81 cm Chery Aranda Other [facility] Other 07-15-2023 13:00-0500 Body mass index (BMI) [Ratio] 39.95 kg/m2 Chery Aranda Other [facility] Other 07-15-2023 13:00-0500 Body weight 116.58 kg Chery Aranda Other [facility] Other 07-15-2023 13:00-0500 Diastolic blood pressure 74 mm[Hg] Chery Aranda Other [facility] Other 07-15-2023 13:00-0500 Systolic blood pressure 107 mm[Hg] Chery Aranda Other [facility] Other 06-14-2023 13:30-0400 Body height 170.81 cm Chery Aranda Other [facility] Other 06-14-2023 13:30-0400 Body mass index (BMI) [Ratio] 39.42 kg/m2 Chery Aranda Other [facility] Other 06-14-2023 13:30-0400 Body weight 115.03 kg Chery Aranda Other [facility] Other 06-14-2023 13:30-0400 Diastolic blood pressure 72 mm[Hg] Chery Aranda Other [facility] Other 06-14-2023 13:30-0400 Systolic blood pressure 118 mm[Hg] Chery Aranda Other [facility] Other 05-16-2023 13:00-0400 Body height 170.81 cm Chery Aranda Other [facility] Other 05-16-2023 13:00-0400 Body mass index (BMI) [Ratio] 40.1 kg/m2 Chery Aranda Other [facility] Other 05-16-2023 13:00-0400 Body weight 117.03 kg Chery Aranda Other [facility] Other 05-16-2023 13:00-0400 Diastolic blood pressure 67 mm[Hg] Chery Aranda Other [facility] Other 05-16-2023 13:00-0400 Systolic blood pressure 102 mm[Hg] Chery Aranda Other [facility] Other 04-15-2023 13:00-0400 Body height 170.81 cm Chery Aranda Other [facility] Other 04-15-2023 13:00-0400 Body mass index (BMI) [Ratio] 41.35 kg/m2 Chery Aranda Other [facility] Other 04-15-2023 13:00-0400 Body weight 120.66 kg Chery Aranda Other [facility] Other 04-15-2023 13:00-0400 Diastolic blood pressure 71 mm[Hg] Chery Aranda Other [facility] Other 04-15-2023 13:00-0400 Systolic blood pressure 110 mm[Hg] Chery Aranda Other [facility] Other 03-22-2022 02:06-0400 Body weight 117.[address] BRANDI ANN [facility] Comment on above: Performed By: #### HCVPCRR #### [facility] [address] [place] [address] Dr. Carleen Underwood Encounters Encounter Date Encounter Type Care Provider Facility Start: 02-11-2024 End: 02-11-2024 ambulatory DINH LOPEZ Not Available Start: 01-30-2024 End: 01-30-2024 ambulatory DINH LOPEZ Not Available Start: 01-23-2024 End: 01-23-2024 ambulatory DINH LOPEZ Not Available Start: 01-17-2024 End: [facility]: [facility] End: 01-16-2024 ambulatory FRIEDA GENE Not Available Start: 01-16-2024 End: 01-16-2024 [facility] 01-13-[facility]24 End: 01-13-2024 ambulatory EN [facility] Start: 01-12-2024 End: 01-16-2024 Evaluation and management of inpatient JAMESON LOERA [facility] Start: 01-11-2024 End: 01-15-2024 Evaluation and management of inpatient BRANDI LAST [facility] Start: 01-08-2024 End: 01-08-2024 ambulatory FRIEDA GENE Not Available Start: 12-25-2023 End: 12-25-2023 ambulatory DINH LOPEZ Not Available Start: 12-11-2023 End: 12-11-2023 ambulatory DINH LOPEZ Not Available Start: 11-27-2023 End: 11-27-2023 ambulatory FRIEDA GENE Not Available Start: 11-13-2023 End: 11-13-2023 ambulatory DINH LOPEZ Not Available Start: 10-17-2023 End: 10-18-2023 ambulatory COLIN BOWLING [facility] Start: 10-16-2023 End: 10-16-2023 ambulatory DINH LOPEZ Not Available Start: 10-04-2023 Chart abstracting Chao Marmolejo MD Work Phone: [facility] Start: 09-18-2023 End: 09-18-2023 ambulatory FRIEDA GENE Not Available Start: 08-20-2023 End: 08-20-2023 ambulatory DINH LOPEZ Not Available Start: 07-26-2023 End: 07-26-2023 ambulatory DINH LOPEZ Not Available Start: 07-15-2023 End: 07-15-2023 ambulatory Chery rAanda Other [facility] Other Start: 07-15-2023 Office outpatient vi sit 10 minutes Chery Aranda [facility] Start: 06-14-2023 End: 06-14-2023 ambulatory Chery Aranda Other [facility] Other Start: 06-14-2023 Office outpatient vi sit 10 minutes Chery Aranda [facility] Start: 05-16-2023 End: 05-16-2023 ambulatory Chery Aranda Other [facility] Other Start: 05-16-2023 Office outpatient vi sit 10 minutes Chery Aranda [facility] Start: 04-15-2023 End: 04-15-2023 ambulatory Chery Aranda Other [facility] Other Start: 04-15-2023 Office outpatient ne w 45 minutes Chery Aranda [facility] Start: 07-31-2022 End: 07-31-[address] [...] DR DINH MARROQUIN Facility:[facility] Start: 03-12-2022 End: 07-19-[address] DINH MARROQUIN Facility:[facility] Start: 02-14-2022 End: 02-15-[address] DINH MARROQUIN Facility:[facility] Start: 01-12-2022 End: 01-13-[address] DINH MARROQUIN Facility:[facility] Start: 12-29-2021 End: 12-30-[address] BRANDI ANN Facility:[facility] Procedures Date Procedure Procedure Detail Performing Clinician Start: 07-26-2023 Antibody screen Chao Powers MD Work Phone: Start: 07-26-2023 Basic metabolic pane l calcium total Dinh Schilling Lopez DO Work Phone: Start: 07-26-2023 HIV [...] Start: 10-22-2023 End: 10-22-2023 Patient encounter procedure [facility] Start: 04-26-2023 Influenza vaccination Influenza Vacc ine [facility] Start: 2011 Screening for malign ant neoplasm of cervix Pap Smear [facility] Start: 2009 DTaP,Tdap and Td Vaccines (1 - Tdap) DTaP,Tdap and Td Vaccines (1 - Tdap) [facility] Start: 2008 Adult BMI Screening Adult BMI Screen ing [facility] Start: 2002 Depression Screening Depression Scre ening [facility] Start: 2002 Tobacco Screening Tobacco Screening [facility] Immunizations Immunization Date Immunization Notes Care Provider Fa cility 09-08-2019 influenza virus vaccine, unspecified formulation Chao Ling MD Work Phone: [facility] Payers Date Payer Category Payer Private Health Insurance RENZO QUISPE POS [id number] 2017-Present [phone] [address] [place] [address] [id number] 2014 Private Health Insurance [id number] 1990 Unknown [id number] 2.16.840.1.041487.3.579.2.5 93 1990 Unknown [id number] 2.16.840.1.603210.3.579.2.5 1990 Unknown [id number] 2.16.840.1.299574.3.579.2.5 93 1990 Unknown [id number] 2.16.840.1.347475.3.579.2.5 1990 Unknown [id number] 2.16.840.1.359368.3.579.2.5 93 1990 Unknown [id number] 2.16.840.1.844912.3.579.2.5 93 1990 Unknown [id number] 2.16.840.1.684782.3.579.2.5 93 1990 Unknown [id number] 2.16.840.1.214316.3.579.2.5 1990 Unknown [id number] 2.16.840.1.166370.3.579.2.5 1990 Unknown [id number] 2.16.840.1.772468.3.579.2.5 1990 Unknown [id number] 2.16.840.1.385012.3.579.2.5 93 1990 Unknown [id number] 2.16.840.1.899540.3.579.2.5 1990 Unknown [id number] 2.16.840.1.924664.3.579.2.5 93 1990 Unknown [id number] 2.16.840.1.014555.3.579.2.5 93 1990 Unknown [id number] 2.16.840.1.962738.3.579.2.5 93 1990 Unknown [id number] 2.16.840.1.256795.3.579.2.5 93 1990 Unknown [id number] 2.16.840.1.608628.3.579.2.5 93 1990 Unknown [id number] 2.16.840.1.014648.3.579.2.5 93 1990 Unknown [id number] 2.16.840.1.224147.3.579.2.1 286 1990 Unknown [id number] 2.16.840.1.856842.3.579.2.1 286 1990 Unknown [id number] 2.16.840.1.173860.3.579.2.1 286 1990 Unknown [id number] 2.16.840.1.912528.3.579.2.1 286 1990 Unknown [id number] 2.16.840.1.375065.3.579.2.1 286 1990 Unknown [id number] 2.16.840.1.163577.3.579.2.1 286 1990 Unknown [id number] 2.16.840.1.682900.3.579.2.1 259 1990 Unknown [id number] 2.16.840.1.669254.3.579.2.1 259 1990 Unknown [id number] 2.16.840.1.219139.3.579.2.1 259 1990 Unknown [id number] 2.16.840.1.650083.3.579.2.1 259 1990 Unknown [id number] 2.16.840.1.807161.3.579.2.1 259 1990 Unknown [id number] 2.16.840.1.391492.3.579.2.1 259 1990 Unknown [id number] 2.16.840.1.470581.3.579.2.1 259 1990 Unknown [id number] 2.16.840.1.981225.3.579.2.1 259 1990 Unknown [id number] 2.16.840.1.298222.3.579.2.1 259 1990 Unknown [id number] 2.16.840.1.897077.3.579.2.1 259 1990 Unknown [id number] 2.16.840.1.190102.3.579.2.1 259 1990 Unknown [id number] 2.16.840.1.269938.3.579.2.1 259 1990 Unknown [id number] 2.16.840.1.028379.3.579.2.1 259 1959 Private Health Insurance [id number] 1959 Unknown [id number] Unknown [id number] 2.16.840.1.506108.3.579.2.5 93 Social History Date Type Detail Facility Unknown if ever smoked [facility] Other Start: 10-06-2020 End: 10-04-2023 Sex Assigned At [employer] Other Start: 09-11-2019 Tobacco smoking stat [facility] Never smoked tobacco [facility] Start: 09-11-2019 Tobacco use and exposure Smokeless tobacco non-user [facility] Start: 10-04-2023 Alcohol intake Ex-drinker (finding) [facility] Start: 10-06-2020 End: 10-04-2023 History of Social function [facility] Childcare Unknown [facility] Start: 05-30-2023 [facility] Start: 1990 Sex Assigned At Not on file P [facility] Evaluation note 07-15-2023 Note Date & Type Note Facility 07-15-2023 Evaluation note Encounter Date Diagnosis Assessment Notes Jun, First trimester (ICD-10 - Z34.91) Continued followup w Dr. Marroquin. No further adipex. [facility] Other Evaluation note 06-14-2023 Note Date & [...] index [BMI] 39.0-39.9, adult (ICD-10 - Z68.39) [facility] Other Evaluation note 05-16-2023 Note Date & [...] index [BMI] 40.0-44.9, adult (ICD-10 - Z68.41) [facility] Other Evaluation note 04-15-2023 Note Date & [...] index [BMI] 40.0-44.9, adult (ICD-10 - Z68.41) [facility] Other History general Narrative - Reported Note Date & Type Note Facility History general Narrative - Reported Type Surgical History T & A 2010 Surgical History Gallbladder 2012 [facility] Other History general Narrative - Reported Note Date & Type Note Facility History general Narrative - Reported Type Surgical History T & A 2009 Surgical History Gallbladder 2013 Hospitalization History see surgical hx [facility] Other History general Narrative - Reported Note [...] Gallbladder 2012 Hospitalization History see surgical hx [facility] Other Instructions Note Date & Type Note Facility Instructions Not on filedocumented in this en counter [facility] Summary Purpose Family History No [...] section and content) DATE CREATED AUTHOR [facility] DATE CREATED AUTHOR AUTHOR'S ORGANIZ ATION 08/04/2022 [facility] DATE CREATED AUTHOR AUTHOR'S ORGANIZ ATION 01/08/2024 [facility] DATE CREATED AUTHOR AUTHOR'S ORGANIZ ATION 02/12/2024 [facility] DATE CREATED AUTHOR AUTHOR'S ORGANIZ ATION 02/13/2024 [facility] EPIC REASON FOR VISIT (unrecogniz ed section and content) ESTABLISH CARE1 month Follow up1 month Follow up1 month Follow up Care Teams (unrecognized sec tion and content) 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 [employer] [facility]. provides no warranty or guarantee of the accuracy or completeness of information in this document.
== END 2024-02-19 10:51 | disposition home or self-care (01) ==
LOC: PST 10:51
PROVIDERS: PCP Family Medicine; Visit Provider Obstetrics & Gynecology
DX: Z01.818 Encounter for other preprocedural examination (principal); Z30.2 Encounter for sterilization

== ENCOUNTER 2024-03-04 06:10 | Day surgery (SDC) | payer OTHER, SELFPAY ==
[2024-02-19 11:31] VITALS: BP 118/76; PULSE 73; TEMP 36.2; O2SAT 98; BMI 35.1
[2024-03-04] VITALS (10 sets, daily range): BP systolic 111–136; BP diastolic 71–88; PULSE 70–94; TEMP 36.4–36.5; O2SAT 95–99; BMI 35.9
[2024-03-04 06:19] LABS: Basophils Absolute Auto 0.1 10^3/uL (0.0-0.1); Basophils Percent Auto 0.8 % (0.2-2.0); Eosinophils Absolute Auto 0.2 10^3/uL (0.0-0.7); Eosinophils Percent Auto 3.2 % (0.9-7.0); Hematocrit 32.3 % (36.0-48.0); Immature Granulocytes Abs Auto 0.01 10^3/uL (0.00-0.03); Immature Granulocytes Pct Auto 0.1 % (0.0-0.5); Lymphocytes Absolute Auto 2.6 10^3/uL (1.2-3.8); Lymphocytes Percent Auto 34.9 % (20.5-60.0); Mean Corpuscular Hemoglobin 24.6 pg (26.7-34.0); Mean Corpuscular Volume 79.4 fL (81.0-99.0); Mean Platelet Volume 9.1 fL (9.5-13.5); Monocytes Absolute Auto 0.5 10^3/uL (0.3-0.8); Monocytes Percent Auto 7.2 % (1.7-12.0); Neutrophils Percent Auto 53.8 % (43.0-75.0); Platelet Count 288 10^3/uL (150-450); Red Blood Count 4.07 10^6/uL (4.20-5.40); White Blood Count 7.5 10^3/uL (4.0-11.0)
[2024-03-04 06:44] LABS: HCG Quantitative <1 mIU/mL
[2024-03-04] MEDS: LACTATED RINGER'S SOLUTION 1,000 ML 50 ML IV (06:51)
--- NOTE | 2024-03-04 08:55 | PM.ONB ---
Brief Operative Note Date of procedure: 03/04/24 Pre-op diagnosis general: desires permenant sterilization Post-op diagnosis: same as pre-op Procedure: NAME OF PROCEDURE: robotic assisted bilateral laparoscopic salpingectomy, lysis of omental adhesion from the uterus, lt ovarian cystectomy PROCEDURE: The patient was taken back to the Operating Room where she was given general anesthesia without difficulty. She was then prepped and draped in the normal sterile fashion after being placed in a dorsal lithotomy position. A wet sponge stick was placed into the patient's vagina. Attention was then turned to the patient's abdomen, where a scalpel was used to make a small infraumbilical incision. The S retractors were then used to dissect the underlying layers until the fascia could be seen. The fascia was then grasped with Vero clamps and tented up. A knife was then used to make a small incision to the fascia. The muscle was identified, at that time two sutures of #0 Vicryl on a GI needle was then used and placed through the fascia. the peritoneum was then identified and entered bluntly. The 10-4 Andie was then placed into the patient's abdomen. This was confirmed with direct visualization of the bowel, using the laparoscope. The patient's abdomen was then insufflated using approximately 4 liters of CO2 gas. Survey of the patient's abdomen demonstrated ovaries were normal in appearance as well as both tubes and uterus. A second and third rt and lt lateral robotic ports which were 8 mm in size, was then placed after the skin incision was made under direct visualization . the robotic arms were engaged. The patient's tube on the patient's right side was identified and tented up using a grasper, the ligasure apparatus was then used to come across the mesosalpingx from the fimbriated end to the insertion site at the uterus, the tube was then amputated and removed in its entirety. This was done on the contralateral side. The tubes were the removed from the patients abdomen. Lysis of omental adhesions from the uterus using the vessel sealer along with lt ovarian cystectomy using the vessel sealer, Excellent hemostasis was noted. The lateral ports were then moved under direct visualization with excellent hemostasis. All instruments were removed from the patient's abdomen. The fascia was closed using the #0 Vicryl on GI needle. The skin was closed using 4-0 Vicryl subcuticularly. All instruments were removed from the patient's vagina as well. The patient was taken out of the dorsal lithotomy position and placed in the supine position and taken to recovery in stable condition. Sponge, lap and needle counts were correct x2. Anesthesia: CHON Surgeon: Jae Marroquin Critical Power Install Technician: Merissa Jacobson Estimated blood loss (mL): 10 Pathology: other (tubes and ovarian cyst wall) Condition: stable Disposition: PACU
[2024-03-04] MEDS: LACTATED RINGER'S SOLUTION 1,000 ML 150 ML IV (09:41)
--- NOTE | 2024-03-04 10:26 | PC.NURSE ---
Peripad dry; denies urge to void
--- NOTE | 2024-03-04 11:03 | PC.NURSE ---
Emesis of bile; states this came on suddenly and now feels better; denies urge to void; instructed to drink fluids slowly and verbalized understanding; peripad dry
--- NOTE | 2024-03-04 11:36 | PC.NURSE ---
Up to bathroom and voided clear yellow; peripad dry
== END 2024-03-04 11:36 | disposition home or self-care (01) ==
PROVIDERS: PCP Family Medicine; Visit Provider Obstetrics & Gynecology
PROC: (CPT 840; principal; 2024-03-04 07:30)
DX: Z30.2 Encounter for sterilization (principal); N83.202 Unspecified ovarian cyst, left side; K66.0 Peritoneal adhesions (postprocedural) (postinfection); J45.909 Unspecified asthma, uncomplicated; R56.9 Unspecified convulsions
CPT/HCPCS: 58661; 58662; 36415; 84702; 85025; 88302; 88305; J1100; J1170; J1885; J2250; J2371; J2405; J2704; J3010

== ENCOUNTER 2024-04-28 20:58 | Outpatient (REF) | payer OTHER, SELFPAY ==
--- OUTSIDE RECORDS SUMMARY | 2024-04-28 21:02 | XMS_ITS | CCD ---
Author Organization [facility] Care Team Providers Care Shift Supervisor Name Role Phone WEST, DR BRANDI [...] TAO Admitting Unavailable Chery Aranda Unavailable Sea SUBSTATION OPERATOR TRANSFORMING-QUALITY ASSISTANTEn Primary Care Provider COLIN BOWLING Referring Unavailable LOPEZJAE Primary Care Unavailable BRANDI LAST Admitting Unavailable [...] Unavail able ZAHEER MATUTE Attending Unavail able SEA, EN S Primary Care Unavailable Lopez DO Jae Attending Provider Lopez, Jae Attending Unavailable Lopez, Jae Admitting Unavailable LOPEZ, JAE Attending Unavailable GENE, FRIEDA Attending Unavailable LOPEZ, JAE Attending Unavailable LOPEZ, JAE Attending Unavailable GENE, FRIEDA Attending Unavailable LOPEZ, JAE Attending Unavailable LOPEZ, JAE Attending Unavailable GENE, FRIEDA Attending Unavailable GENE, FRIEDA Attending Unavailable LOPEZ, JAE Attending Unavailable LOPEZ, JAE Attending Unavailable LOPEZ, JAE Attending Unavailable LOPEZ, JAE Attending Unavailable GENE, FRIEDA Attending Unavailable GENE, FRIEDA Attending Unavailable Medications Current Medications Medication Drug [...] Active Start: 05-16-2023 take 1 capsule by mo uth every twenty-four hours Phentermine HCl 37.5 MG 1 capsule Orally Once a day for 30 days Apr, Active Start: 04-15-2023 take 1 capsule by mo uth every twenty-four hours Phentermine HCl 37.5 MG 1 capsule Orally Once a day for 30 days Mar, Active [id number] ac id 29 mg iron- 1 mg [...] Test Name Value Interpretation Reference Range Facility Basophils Auto (Bld) [#/Vol] on 03-04-2024 Basophils (Bld) [#/Vol] 0.1 10 3/uL 0.0-0.1 [facility] Basophils/100 WBC Auto (Bld) on 03-04-2024 Basophils/100 WBC (Bld) 0.8 % 0.2-2.0 [facility] Eosinophils/100 WBC Auto (Bl d)on 03-04-2024 Eosinophils/100 WBC (Bld) 3.2 % 0.9-7.0 [facility] Erythrocyte distribution wid th Auto (RBC) [Ratio]on 03-04-2024 Erythrocyte distribution width (RBC) [Ratio] 16.0 % High 11.0-15.0 [facility] Hematocrit Auto (Bld) [Volum e fraction]on 03-04-2024 Hematocrit (Bld) [Volume fraction] 32.3 % Low 36.0-48.0 [facility] Hemoglobin [Mass/volume] in Bloodon 03-04-2024 Hemoglobin (Bld) [Mass/Vol] 10.0 g/dL Low 12.0-16.0 [facility] Vinay 03-04-2024 L Specimen: [id number] Received: 03/04/24 Status: GENET Scruggs Num: [id number] Spec Type: Surgical Subm Dr: Jae Marroquin Tissues: A Fallopian Tube - Sterilization (RASHMI FT) B Ovary - Cyst, Non-Neoplastic (LT OVARIAN CYST WALL) Procedures: HE/5, Gross/Micro L4, Gross/Micro L2 Age/ Patient Sex Location Account Attending Physician Ivy Brownlee 33/F LABELL [id number] Jae Marroquin SPEC NUM: [id number] RECD: 03/04/24 STATUS: GENET SCRUGGS NUM: [id number] CASIMIRO: 03/04/[address]: Jae Marroquin ENTERED: 03/04/24 [facility] DR: Coleen,Mike SPEC TYPE: Surgical DEPT: GILBERT DANIEL ORDERED: HE/5, Gross/Micro L4, Gross/Micro L2 ORDERED: HE/5, Gross/Micro L4, Gross/Micro L2 Pathological Diagnosis A, bilateral fallopian tubes, bilateral salpingectomy: -Intact bilateral fimbriated fallopian tubes without significant histopathological findings B, left ovarian cystic wall, cystectomy: -Consistent with fragments of large benign persistent and slightly degenerated corpus luteal cyst -Incidental mild fibrothecomatous change in the surrounding ovarian stroma -Incidental prominent mesonephric remnants -Incidental rare minute small Walthard rests and cyst -No evidence of malignancy or secondary infection identified Clinical Information Request for sterilization Gross Description Received are 2 formalin filled containers each labeled with the patient's name, date of and specific specimen site. A. Further labeled bilateral fallopian tubes are 2 undesignated fimbriated fallopian tubes assigned as #1 and #2. Each tube is covered by hickey-purple serosa. Tube #1 measures 7.3 cm in length by 0.5 cm in diameter and tube #2 measures 4.7 cm in length by 0.6 cm in Specimen: [id number] Received: 03/04/24 Status: GENET Scruggs Num: [id number] Spec Type: Surgical Subm Dr: Jae Marroquin Tissues: A Fallopian Tube - Sterilization (RASHMI FT) B Ovary - Cyst, Non-Neoplastic (LT OVARIAN CYST WALL) Procedures: HE/5, Gross/Micro L4, Gross/Micro L2 Patient: Ivy Brownlee [id number] (Continued) Specimen: [id number] Received: 03/04/24 (Continued) Gross Description (Continued) Signed (signature on file) Amaris Underwood MD 03/06/24 1829 Specimen: [id number] Received: 03/04/24 Status: GENET Scruggs Num: [id number] Spec Type: Surgical Subm Dr: Jae Marroquin Tissues: A Fallopian Tube - Sterilization (RASHMI FT) B Ovary - Cyst, Non-Neoplastic (LT OVARIAN CYST WALL) Procedures: HE/5, Gross/Micro L4, Gross/Micro L2 Patient: Ivy Brownlee [id number] (Continued) Specimen: [id number] Received: 03/04/24 (Continued) Gross Description (Continued) diameter. Cut sections for each tube demonstrate an intact luminal center lined by unremarkable hickey mucosa. Hand Heel Seat Fitter sections of each tube are submitted in A1 (tube #1) and A2 (tube #2). B. Further labeled left ovarian cyst wall are 5 hickey-pink membranous tissue fragments measuring in aggregate 1.7 x 1.2 x 0.3 cm. No abnormal areas are identified. No normal ovarian parenchyma is present. The specimen is entirely submitted in B1. TW Microscopic Description Microscopic examinations are performed supporting the above interpretation CPT Codes 66631, 98473 Specimen: [id number] Received: 03/04/24 Status: GENET Scruggs Num: [id number] Spec Type: Surgical Subm Dr: Jae Marroquin Tissues: A Fallopian Tube - Sterilization (RASHMI FT) B Ovary - Cyst, Non-Neoplastic (LT OVARIAN CYST WALL) Procedures: HE/5, Gross/Micro L4, Gross/Micro L2 Patient: Ivy Brownlee [id number] (Continued) Signed (signature on file) Amaris Underwood MD 03/06/24 1829 Normal [facility] - Hematology and Cell countson 03-04-2024 Immature granulocytes/100 WBC (Bld) 0.1 % 0.0-0.5 [facility] Leukocytes [#/volume] correc cecelia for nucleated erythrocytes in Blood by Automated counon 03-04-2024 WBC corrected for nucl RBC Auto (Bld) [#/Vol] 7.5 10 3/uL 4.0-11.0 [facility] Lymphocytes Auto (Bld) [#/Vo l]on 03-04-2024 Lymphocytes (Bld) [#/Vol] 2.6 10 3/uL 1.2-3.8 [facility] Lymphocytes/100 WBC Auto (Bl d)on 03-04-2024 Lymphocytes/100 WBC (Bld) 34.9 % 20.5-60.0 [facility] MCH Auto (RBC) [Entitic mass ]on 03-04-2024 MCH (RBC) [Entitic mass] 24.6 pg Low 26.7-34.0 [facility] MCHC Auto (RBC) [Mass/Vol]on 03-04-2024 MCHC (RBC) [Mass/Vol] 31.0 g/dL 29.9-35.2 [facility] MCV Auto (RBC) [Entitic vol] on 03-04-2024 MCV (RBC) [Entitic vol] 79.4 fL Low 81.0-99.0 [facility] Monocytes Auto (Bld) [#/Vol] on 03-04-2024 Monocytes (Bld) [#/Vol] 0.5 10 3/uL 0.3-0.8 [facility] Monocytes/100 WBC Auto (Bld) on 03-04-2024 Monocytes/100 WBC (Bld) 7.2 % 1.7-12.0 [facility] Neutrophils Auto (Bld) [#/Vo l]on 03-04-2024 Neutrophils (Bld) [#/Vol] 4.0 10 3/uL 1.4-6.5 [facility] Neutrophils/100 WBC Auto (Bl d)on 03-04-2024 Neutrophils/100 WBC (Bld) 53.8 % 43.0-75.0 [facility] No Panel Informationon 03-04 Eosinophils # (Auto) 0.2 10 3/uL 0.0-0.7 [facility] Human Chorionic Gonadotropin, Quant <1 mIU/mL [facility] Comment on above: 5-50 0.2-1 XTPR84-82 0 1-2 HSTPB978-8,000 2-3 FPQSC404-10,000 3-4 WEEKS1,000-50,000 4-5 WEEKS10,000-100,000 5-6 WEEKS15,000-200,000 6-8 WEEKS10,000-100,000 2-3 MONTHS Immature Granulocyte # (Auto) 0.01 10 3/uL 0.00-0.03 [facility] Platelet mean volume Auto (B ld) [Entitic vol]on 03-04-2024 Platelet mean volume (Bld) [Entitic vol] 9.1 fL Low 9.5-13.5 [facility] Platelets Auto (Bld) [#/Vol] on 03-04-2024 Platelets (Bld) [#/Vol] 288 10 3/uL 150-450 [facility] RBC Auto (Bld) [#/Vol]on RBC (Bld) [#/Vol] 4.07 10 6/uL Low 4.20-5.40 [facility] CBC AND AUTO DIFFon 01-17-20 ABSOLUTE BASOPHIL 0.0 X10E9/L Normal 0.0-0.2 [facility] Comment on above: Performed By: #### C BCA, CMP, 2532-0, 3084-1, FEPR, 2276-4, 97608-5 #### [facility] ([id number]) [address], [address] [place] [address] ABSOLUTE NEUTROPHIL 4.7 X10E9/L Normal 1.5-6.6 [facility] Comment on above: Performed By: #### C BCA, CMP, 2532-0, 3084-1, FEPR, 2276-4, 45373-6 #### [facility] ([id number]) [address], [address] [place] [address] Basophils/100 WBC (Bld) 0.5 % Normal [facility] Comment on above: Performed By: #### C BCA, CMP, 2532-0, 3084-1, FEPR, 2276-4, 18682-5 #### [facility] ([id number]) [address], [address] [place] [address] Eosinophils (Bld) [#/Vol] 0.2 10*3/uL Normal 0.0-0.4 [facility] Comment on above: Performed By: #### C BCA, CMP, 2532-0, 3084-1, FEPR, 6-4, 85796-8 #### [facility] ([id number]) [address], [address] [place] [address] Eosinophils/100 WBC (Bld) 2.0 % Normal [facility] Comment on above: Performed By: #### C BCA, CMP, 2532-0, 3084-1, FEPR, 6-4, 94392-9 #### [facility] ([id number]) [address], [facility] [address] [place] [address] Erythrocyte distribution width (RBC) [Ratio] 16.6 % High 11.5-15.0 [facility] Comment on above: Performed By: #### C BCA, CMP, 2532-0, 3084-1, FEPR, 6-4, 04655-6 #### [facility] ([id number]) [address], [address] [place] [address] Hematocrit (Bld) [Volume fraction] 24.4 % Low 35-47 [facility] Comment on above: Performed By: #### C BCA, CMP, 2532-0, 3084-1, FEPR, 6-4, 57784-8 #### [facility] ([id number]) [address], [address] [place] [address] Hemoglobin (Bld) [Mass/Vol] 7.9 g/dL Low 11.7-15.5 [facility] Comment on above: Performed By: #### C BCA, CMP, 2532-0, 3084-1, FEPR, 6-4, 05619-6 #### [facility] ([id number]) [address], [address] [place] [address] Lymphocytes (Bld) [#/Vol] 2.9 10*3/uL Normal 1.0-3.5 [facility] Comment on above: Performed By: #### C BCA, CMP, 2532-0, 3084-1, FEPR, 6-4, 60524-1 #### [facility] ([id number]) [address], [address] [place] [address] Lymphocytes/100 WBC (Bld) 34.8 % Normal [facility] Comment on above: Performed By: #### C BCA, CMP, 2532-0, 3084-1, FEPR, 6-4, 46189-1 #### [facility] ([id number]) [address], [facility] [address] [place] [address] MCH (RBC) [Entitic mass] 24.3 pg Low 27-34 [facility] Comment on above: Performed By: #### C BCA, CMP, 2532-0, 4-1, FEPR, 2275-4, 22387-0 #### [facility] ([id number]) [address], [address] [place] [address] MCHC (RBC) [Mass/Vol] 32.4 g/dL Normal 32-36 [facility] Comment on above: Performed By: #### C BCA, CMP, 2532-0, 4-1, FEPR, 6-4, 83089-7 #### [facility] ([id number]) [address], [address] [place] [address] MCV (RBC) [Entitic vol] 75 fL Low 80-100 [facility] Comment on above: Performed By: #### C BCA, CMP, 2532-0, 3084-1, FEPR, 6-4, 91799-5 #### [facility] ([id number]) [address], [address] [place] [address] Monocytes (Bld) [#/Vol] 0.5 10*3/uL Normal 0-0.9 [facility] Comment on above: Performed By: #### C BCA, CMP, 2532-0, 3084-1, FEPR, 2276-4, 72177-4 #### [facility] ([id number]) [address], [address] [place] [address] Monocytes/100 WBC (Bld) 5.7 % Normal [facility] Comment on above: Performed By: #### C BCA, CMP, 2532-0, 3084-1, FEPR, 2276-4, 52392-7 #### [facility] ([id number]) [address], [address] [place] [address] Neutrophils/100 WBC (Bld) 57.0 % Normal [facility] Comment on above: Performed By: #### C BCA, CMP, 2532-0, 3084-1, FEPR, 2276-4, 52958-9 #### [facility] ([id number]) [address], [address] [place] [address] Platelet mean volume (Bld) [Entitic vol] 7.4 fL Normal 7-12 [facility] Comment on above: Performed By: #### C BCA, CMP, 2532-0, 3084-1, FEPR, 2276-4, 08522-1 #### [facility] ([id number]) [address], [facility] [address] [place] [address] Platelets (Bld) [#/Vol] 315 10*3/uL Normal 150-450 [facility] Comment on above: Performed By: #### C BCA, CMP, 2532-0, 3084-1, FEPR, 2276-4, 18298-6 #### [facility] ([id number]) [address], [address] [place] [address] RBC COUNT 3.25 X10E12/L Low 3.80-5.20 [facility] Comment on above: Performed By: #### C BCA, CMP, 2532-0, 3084-1, FEPR, 2276-4, 18134-6 #### [facility] ([id number]) [address], [address] [place] [address] WBC (Bld) [#/Vol] 8.3 10*3/uL Normal 4.0-11.0 [facility] Comment on above: Performed By: #### C BCA, CMP, 2532-0, 3084-1, FEPR, 2276-4, 19482-5 #### [facility] ([id number]) [address], [address] [place] [address] COMPREHENSIVE METABOLIC PANE Vinay 01-17-2024 Albumin [Mass/Vol] 3.4 g/dL Normal 3.2-5.3 [facility] Comment on above: Performed By: #### C BCA, CMP, 2532-0, 3084-1, FEPR, 2276-4, 96289-4 #### [facility] ([id number]) [address], [address] [place] [address] ALP [Catalytic activity/Vol] 96 U/L Normal 39-130 [facility] Comment on above: Performed By: #### C BCA, CMP, 2532-0, 3084-1, FEPR, 2276-4, 45334-5 #### [facility] ([id number]) [address], [address] [place] [address] ALT [Catalytic activity/Vol] 18 U/L Normal 0-31 [facility] Comment on above: Performed By: #### C BCA, CMP, 2532-0, 3084-1, FEPR, 2276-4, 91618-0 #### [facility] ([id number]) [address], [address] [place] [address] Anion gap [Moles/Vol] 11 mmol/L Normal 5-15 [facility] Comment on above: Performed By: #### C BCA, CMP, 2532-0, 3084-1, FEPR, 2276-4, 88375-1 #### [facility] ([id number]) [address], [address] [place] [address] AST [Catalytic activity/Vol] 18 U/L Normal 0-41 [facility] Comment on above: Performed By: #### C BCA, CMP, 2532-0, 3084-1, FEPR, 2276-4, 67804-5 #### [facility] ([id number]) [address], [address] [place] [address] Bilirubin [Mass/Vol] 0.3 mg/dL Normal 0.3-1.2 [facility] Comment on above: Performed By: #### C BCA, CMP, 2532-0, 3084-1, FEPR, 2276-4, 58008-3 #### [facility] ([id number]) [address], [address] [place] [address] Calcium [Mass/Vol] 9.5 mg/dL Normal 8.5-10.5 [facility] Comment on above: Performed By: #### C BCA, CMP, 2532-0, 3084-1, FEPR, 2276-4, 40065-0 #### [facility] ([id number]) [address], [address] [place] [address] Chloride [Moles/Vol] 105 mmol/L Normal 98-109 [facility] Comment on above: Performed By: #### C BCA, CMP, 2532-0, 3084-1, FEPR, 2276-4, 67527-5 #### [facility] ([id number]) [address], [address] [place] [address] CO2 [Moles/Vol] 24 mmol/L Normal 22-32 [facility] Comment on above: Performed By: #### C BCA, CMP, 2532-0, 3084-1, FEPR, 2276-4, 70746-5 #### [facility] ([id number]) [address], [address] [place] [address] Creatinine [Mass/Vol] 0.53 mg/dL Normal 0.40-1.00 [facility] Comment on above: Result Comment: METH OD TRACEABLE TO IDMS STANDARD Performed By: #### C BCA, CMP, 2532-0, 3084-1, FEPR, 2276-4, 17996-4 #### [facility] ([id number]) [address], [address] [place] [address] eGFR (CKD-EPI) NON-RACE DEPENDENT >90 Normal >59 [facility] Comment on above: Result Comment: Reported eGFR is based on the CKD-EPI 2020 equation that does not use a race coefficient. Performed By: #### C BCA, CMP, 2532-0, 3084-1, FEPR, 2276-4, 08019-9 #### [facility] ([id number]) [address], [address] [place] [address] Glucose [Mass/Vol] 86 mg/dL Normal 65-99 [facility] Comment on above: Performed By: #### C BCA, CMP, 2532-0, 3084-1, FEPR, 2276-4, 94953-3 #### [facility] ([id number]) [address], [facility] [address] [place] [address] Potassium [Moles/Vol] 4.4 mmol/L Normal 3.5-5.0 [facility] Comment on above: Performed By: #### C BCA, CMP, 2532-0, 3084-1, FEPR, 2276-4, 77740-1 #### [facility] ([id number]) [address] [address] [place] [address] Protein [Mass/Vol] 6.5 g/dL Normal 6.0-8.0 [facility] Comment on above: Performed By: #### C BCA, CMP, 2532-0, 3084-1, FEPR, 2276-4, 81201-6 #### [facility] ([id number]) [address], [address] [place] [address] Sodium [Moles/Vol] 140 mmol/L Normal 134-146 [facility] Comment on above: Performed By: #### C BCA, CMP, 2532-0, 3084-1, FEPR, 2276-4, 65712-4 #### [facility] ([id number]) [address], [address] [place] [address] Urea nitrogen [Mass/Vol] 11 mg/dL Normal 5-23 [facility] Comment on above: Performed By: #### C BCA, CMP, 2532-0, 3084-1, FEPR, 6-4, 59360-2 #### [facility] ([id number]) [address], [address] [place] [address] DRUG SCREEN, URINEon 024 AMPHETAMINE/METHAMP Negative Normal NEG [facility] Comment on above: Result Comment: AMPH /METH screening cut off = 1000 ng/mL Performed By: #### C BCA, CMP, 2532-0, 3084-1, FEPR, 6-4, 71911-4 #### [facility] ([id number]) [address], [address] [place] [address] BARBITURATES Negative Normal NEG [facility] Comment on above: Result Comment: Sol iturates screening cut off value = 200 ng/mL Performed By: #### C BCA, CMP, 2532-0, 3084-1, FEPR, 6-4, 88292-4 #### [facility] ([id number]) [address] [address] BENZODIAZEPINES Negative Normal NEG [facility] Comment on above: Result Comment: Laic odiazepines screening cut off value = 200 ng/mL Performed By: #### C BCA, CMP, 2532-0, 3084-1, FEPR, 6-4, 12407-9 #### [facility] ([id number]) [address], [address] [place] [address] CANNABINOIDS Negative Normal NEG [facility] Comment on above: Result Comment: Neno abinoids/THC screening cut off value = 50 ng/mL Performed By: #### C BCA, CMP, 2532-0, 3084-1, FEPR, 2276-4, 48090-8 #### [facility] ([id number]) [address], [address] [place] [address] COCAINE METABOLITE Negative Normal NEG [facility] Comment on above: Result Comment: Coca ine screening cut off value = 300 ng/mL Performed By: #### C BCA, CMP, 2532-0, 3084-1, FEPR, 6-4, 49622-3 #### [facility] ([id number]) [address], [address] [place] [address] ECSTASY Positive Abnormal NEG [facility] Comment on above: Result Comment: Inte rference from Buproprion or Labetalol may cause a positive result, confirmation available upon request. Ecstasy screening cut off value = 500 ng/mL This report is intended for use in clinical monitoring or management of patients. Performed By: #### C BCA, CMP, 2532-0, 3084-1, FEPR, 6-4, 09448-4 #### [facility] ([id number]) [address], [address] [place] [address] METHADONE Negative Normal NEG [facility] Comment on above: Result Comment: Meth adone screening cut off value = 300 ng/mL. Performed By: #### C BCA, CMP, 2532-0, 3084-1, FEPR, 6-4, 12586-5 #### [facility] ([id number]) [address] [place] [address] OPIATES Negative Normal NEG [facility] Comment on above: Result Comment: Opia ermias screening cut off value = 300 ng/mL NOTE: This test is used for the detection of codeine, hydrocodone (>1000 ng/mL), morphine and hydromorphone (>900 ng/mL) in urine. Performed By: #### C BCA, CMP, 2532-0, 3084-1, FEPR, 2276-4, 91187-2 #### [facility] ([id number]) [address], [address] [place] [address] OXYCODONE Negative Normal NEG [facility] Comment on above: Result Comment: Oxyc odone screening cut off value = 300 ng/mL NOTE: This test is used for the detection of oxycodone and oxymorphone in urine. Performed By: #### C BCA, CMP, 2532-0, 3084-1, FEPR, 2276-4, 07279-5 #### [facility] ([id number]) [address], [address] [place] [address] PHENCYCLIDINE Negative Normal NEG [facility] Comment on above: Result Comment: Phen cyclidine screening cut off value = 25 ng/mL Performed By: #### C BCA, CMP, 2532-0, 3084-1, FEPR, 2276-4, 18086-7 #### [facility] ([id number]) [address], [address] [place] [address] LDH [Catalytic activity/Vol] on 01-17-2024 LDH 167 U/L Normal 100-235 [facility] Comment on above: Performed By: #### C BCA, CMP, 2532-0, 3084-1, FEPR, 2276-4, 17187-7 #### [facility] ([id number]) [address], [address] [place] [address] URIC ACIDon 01-17-2024 Urate [Mass/Vol] 7.1 mg/dL Normal 2.6-7.2 [facility] Comment on above: Performed By: #### C BCA, CMP, 2532-0, 3084-1, FEPR, 6-4, 45733-2 #### [facility] ([id number]) [address], [address] [place] [address] CBC AND AUTO DIFFon 05-20 24 ABSOLUTE BASOPHIL 0.0 X10E9/L Normal 0.0-0.2 [facility] Comment on above: Performed By: #### C BCA, CMP, 2532-0, 3084-1, FEPR, 6-4, 10024-7 #### [facility] ([id number]) [address], [address] [place] [address] ABSOLUTE NEUTROPHIL 6.9 X10E9/L High 1.5-6.6 [facility] Comment on above: Performed By: #### C BCA, CMP, 2532-0, 4-1, FEPR, 6-4, 20899-0 #### [facility] ([id number]) [address], [address] [place] [address] Basophils/100 WBC (Bld) 0.3 % Normal [facility] Comment on above: Performed By: #### C BCA, CMP, 2532-0, 4-1, FEPR, 6-4, 11121-0 #### [facility] ([id number]) [address], [address] [place] [address] Eosinophils (Bld) [#/Vol] 0.1 10*3/uL Normal 0.0-0.4 [facility] Comment on above: Performed By: #### C BCA, CMP, 2532-0, 3084-1, FEPR, 6-4, 60463-1 #### [facility] ([id number]) [address], [address] [place] [address] Eosinophils/100 WBC (Bld) 0.6 % Normal [facility] Comment on above: Performed By: #### C BCA, CMP, 2532-0, 3084-1, FEPR, 2276-4, 88649-0 #### [facility] ([id number]) [address], [facility] [address] [place], [place] [address] Erythrocyte distribution width (RBC) [Ratio] 15.4 % High 11.5-15.0 [facility] Comment on above: Performed By: #### C BCA, CMP, 2532-0, 3084-1, FEPR, 6-4, 25601-3 #### [facility] ([id number]) [address] [address] [place] [address] Hematocrit (Bld) [Volume fraction] 24.4 % Low 35-47 [facility] Comment on above: Performed By: #### C BCA, CMP, 2532-0, 3084-1, FEPR, 6-4, 01805-6 #### [facility] ([id number]) [address] [address] Hemoglobin (Bld) [Mass/Vol] 7.9 g/dL Low 11.7-15.5 [facility] Comment on above: Performed By: #### C BCA, CMP, 2532-0, 3084-1, FEPR, 2275-4, 19953-7 #### [facility] ([id number]) [address] [address] Lymphocytes (Bld) [#/Vol] 2.2 10*3/uL Normal 1.0-3.5 [facility] Comment on above: Performed By: #### C BCA, CMP, 2532-0, 3084-1, FEPR, 6-4, 94358-9 #### [facility] ([id number]) [address] [address] Lymphocytes/100 WBC (Bld) 22.2 % Normal [facility] Comment on above: Performed By: #### C BCA, CMP, 2532-0, 3084-1, FEPR, 6-4, 66039-8 #### [facility] ([id number]) [address] [place] [address] MCH (RBC) [Entitic mass] 24.4 pg Low 27-34 [facility] Comment on above: Performed By: #### C BCA, CMP, 2532-0, 3084-1, FEPR, 6-4, 09944-4 #### [facility] ([id number]) [address] [place] [address] MCHC (RBC) [Mass/Vol] 32.6 g/dL Normal 32-36 [facility] Comment on above: Performed By: #### C BCA, CMP, 2532-0, 3084-1, FEPR, 6-4, 51613-1 #### [facility] ([id number]) [address] [place] [address] MCV (RBC) [Entitic vol] 75 fL Low 80-100 [facility] Comment on above: Performed By: #### C BCA, CMP, 2532-0, 3084-1, FEPR, 2275-, 69922-9 #### [facility] ([id number]) [address] [place] [address] Monocytes (Bld) [#/Vol] 0.6 10*3/uL Normal 0-0.9 [facility] Comment on above: Performed By: #### C BCA, CMP, 2532-0, 3084-1, FEPR, 6-4, 93569-2 #### [facility] ([id number]) [address], [facility] [address] [place] [address] Monocytes/100 WBC (Bld) 6.0 % Normal [facility] Comment on above: Performed By: #### C BCA, CMP, 2532-0, 3084-1, FEPR, 6-4, 75962-9 #### [facility] ([id number]) [address] [place] [address] Neutrophils/100 WBC (Bld) 70.9 % Normal [facility] Comment on above: Performed By: #### C BCA, CMP, 2532-0, 3084-1, FEPR, 2276-4, 93464-0 #### [facility] ([id number]) [address] [place] [address] Platelet mean volume (Bld) [Entitic vol] 8.8 fL Normal 7-12 [facility] Comment on above: Performed By: #### C BCA, CMP, 2532-0, 3084-1, FEPR, 2276-4, 59361-0 #### [facility] ([id number]) [address] [address] [place] [address] Platelets (Bld) [#/Vol] 217 10*3/uL Normal 150-450 [facility] Comment on above: Performed By: #### C BCA, CMP, 2532-0, 3084-1, FEPR, 2276-4, 21829-6 #### [facility] ([id number]) [address] [address] [place] [address] RBC COUNT 3.25 X10E12/L Low 3.80-5.20 [facility] Comment on above: Performed By: #### C BCA, CMP, 2532-0, 3084-1, FEPR, 2276-4, 84475-4 #### [facility] ([id number]) [address] [address] [place] [address] WBC (Bld) [#/Vol] 9.8 10*3/uL Normal 4.0-11.0 [facility] Comment on above: Performed By: #### C BCA, CMP, 2532-0, 3084-1, FEPR, 2276-4, 32820-7 #### [facility] ([id number]) [address] [place] [address] COMPREHENSIVE METABOLIC PANE Vinay 01-14-2024 Albumin [Mass/Vol] 2.7 g/dL Low 3.2-5.3 [facility] Comment on above: Performed By: #### C BCA, CMP, 2532-0, 3084-1, FEPR, 2276-4, 80831-7 #### [facility] ([id number]) [address], [address] [place] [address] ALP [Catalytic activity/Vol] 124 U/L Normal 39-130 [facility] Comment on above: Performed By: #### C BCA, CMP, 2532-0, 3084-1, FEPR, 2276-4, 00564-5 #### [facility] ([id number]) [address] [place] [address] ALT [Catalytic activity/Vol] 9 U/L Normal 0-31 [facility] Comment on above: Performed By: #### C BCA, CMP, 2532-0, 3084-1, FEPR, 2276-4, 65327-1 #### [facility] ([id number]) [address] [place] [address] Anion gap [Moles/Vol] 8 mmol/L Normal 5-15 [facility] Comment on above: Performed By: #### C BCA, CMP, 2532-0, 3084-1, FEPR, 2276-4, 24458-5 #### [facility] ([id number]) [address] [place] [address] AST [Catalytic activity/Vol] 12 U/L Normal 0-41 [facility] Comment on above: Performed By: #### C BCA, CMP, 2532-0, 3084-1, FEPR, 2276-4, 09382-7 #### [facility] ([id number]) [address] [place] [address] Bilirubin [Mass/Vol] 0.2 mg/dL Low 0.3-1.2 [facility] Comment on above: Performed By: #### C BCA, CMP, 2532-0, 3084-1, FEPR, 2276-4, 36984-7 #### [facility] ([id number]) [address] [address] [place] [address] Calcium [Mass/Vol] 7.0 mg/dL Low 8.5-10.5 [facility] Comment on above: Performed By: #### C BCA, CMP, 2532-0, 3084-1, FEPR, 2276-4, 73236-0 #### [facility] ([id number]) [address] [address] Chloride [Moles/Vol] 104 mmol/L Normal 98-109 [facility] Comment on above: Performed By: #### C BCA, CMP, 2532-0, 3084-1, FEPR, 2276-4, 39744-4 #### [facility] ([id number]) [address] [address] CO2 [Moles/Vol] 26 mmol/L Normal 22-32 [facility] Comment on above: Performed By: #### C BCA, CMP, 2532-0, 3084-1, FEPR, 2276-4, 47073-0 #### [facility] ([id number]) [address] [address] Creatinine [Mass/Vol] 0.66 mg/dL Normal 0.40-1.00 [facility] Comment on above: Result Comment: METH OD TRACEABLE TO IDMS STANDARD Performed By: #### C BCA, CMP, 2532-0, 3084-1, FEPR, 2276-4, 73163-6 #### [facility] ([id number]) [address] [address] [place] [address] eGFR (CKD-EPI) NON-RACE DEPENDENT >90 Normal >59 [facility] Comment on above: Result Comment: Reported eGFR is based on the CKD-EPI 2020 equation that does not use a race coefficient. Performed By: #### C BCA, CMP, 2532-0, 3084-1, FEPR, 2276-4, 74984-1 #### [facility] ([id number]) [address] [place] [address] Glucose [Mass/Vol] 68 mg/dL Normal 65-99 [facility] Comment on above: Performed By: #### C BCA, CMP, 2532-0, 3084-1, FEPR, 2276-4, 47348-4 #### [facility] ([id number]) [address] [place] [address] Potassium [Moles/Vol] 4.0 mmol/L Normal 3.5-5.0 [facility] Comment on above: Performed By: #### C BCA, CMP, 2532-0, 3084-1, FEPR, 2276-4, 66848-6 #### [facility] ([id number]) [address] [place] [address] Protein [Mass/Vol] 5.7 g/dL Low 6.0-8.0 [facility] Comment on above: Performed By: #### C BCA, CMP, 2532-0, 3084-1, FEPR, 2276-4, 71719-3 #### [facility] ([id number]) [address] [place] [address] Sodium [Moles/Vol] 138 mmol/L Normal 134-146 [facility] Comment on above: Performed By: #### C BCA, CMP, 2532-0, 3084-1, FEPR, 2276-4, 36609-7 #### [facility] ([id number]) [address] [place] [address] Urea nitrogen [Mass/Vol] 14 mg/dL Normal 5-23 [facility] Comment on above: Performed By: #### C BCA, CMP, 2532-0, 3084-1, FEPR, 6-4, 24176-8 #### [facility] ([id number]) [address] [address] CBC AND AUTO DIFFon 05-20-20 24 ABSOLUTE BASOPHIL 0.0 X10E9/L Normal 0.0-0.2 [facility] Comment on above: Performed By: #### C BCA, CMP, 2532-0, 3084-1, FEPR, 6-4, 42759-8 #### [facility] ([id number]) [address] [address] ABSOLUTE NEUTROPHIL 7.6 X10E9/L High 1.5-6.6 [facility] Comment on above: Performed By: #### C BCA, CMP, 2532-0, 3084-1, FEPR, 6-4, 87805-6 #### [facility] ([id number]) [address] [address] Basophils/100 WBC (Bld) 0.3 % Normal [facility] Comment on above: Performed By: #### C BCA, CMP, 2532-0, 4-1, FEPR, 6-4, 04299-6 #### [facility] ([id number]) [address] [address] Eosinophils (Bld) [#/Vol] 0.0 10*3/uL Normal 0.0-0.4 [facility] Comment on above: Performed By: #### C BCA, CMP, 2532-0, 3084-1, FEPR, 6-4, 70965-5 #### [facility] ([id number]) [address] [address] Eosinophils/100 WBC (Bld) 0.1 % Normal [facility] Comment on above: Performed By: #### C BCA, CMP, 2532-0, 3084-1, FEPR, 2276-4, 92723-2 #### [facility] ([id number]) [address] [place] [address] Erythrocyte distribution width (RBC) [Ratio] 15.2 % High 11.5-15.0 [facility] Comment on above: Performed By: #### C BCA, CMP, 2532-0, 3084-1, FEPR, 6-4, 83981-8 #### [facility] ([id number]) [address] [address] [place] [address] Hematocrit (Bld) [Volume fraction] 23.2 % Low 35-47 [facility] Comment on above: Performed By: #### C BCA, CMP, 2532-0, 3084-1, FEPR, 6-4, 81386-3 #### [facility] ([id number]) [address] [address] [place] [address] Hemoglobin (Bld) [Mass/Vol] 7.8 g/dL Low 11.7-15.5 [facility] Comment on above: Performed By: #### C BCA, CMP, 2532-0, 3084-1, FEPR, 6-4, 65143-3 #### [facility] ([id number]) [address] [address] [place] [address] Lymphocytes (Bld) [#/Vol] 1.9 10*3/uL Normal 1.0-3.5 [facility] Comment on above: Performed By: #### C BCA, CMP, 2532-0, 3084-1, FEPR, 2276-4, 25714-2 #### [facility] ([id number]) [address] [place] [address] Lymphocytes/100 WBC (Bld) 18.8 % Normal [facility] Comment on above: Performed By: #### C BCA, CMP, 2532-0, 3084-1, FEPR, 2276-4, 86879-9 #### [facility] ([id number]) [address] [place] [address] MCH (RBC) [Entitic mass] 25.1 pg Low 27-34 [facility] Comment on above: Performed By: #### C BCA, CMP, 2532-0, 3084-1, FEPR, 6-4, 99768-5 #### [facility] ([id number]) [address], [address] [address] MCHC (RBC) [Mass/Vol] 33.8 g/dL Normal 32-36 [facility] Comment on above: Performed By: #### C BCA, CMP, 2532-0, 3084-1, FEPR, 6-4, 58512-9 #### [facility] ([id number]) [address], [facility] [address] [place] [address] MCV (RBC) [Entitic vol] 74 fL Low 80-100 [facility] Comment on above: Performed By: #### C BCA, CMP, 2532-0, 3084-1, FEPR, 6-4, 39188-1 #### [facility] ([id number]) [address] [place] [address] Monocytes (Bld) [#/Vol] 0.7 10*3/uL Normal 0-0.9 [facility] Comment on above: Performed By: #### C BCA, CMP, 2532-0, 3084-1, FEPR, 6-4, 58766-4 #### [facility] ([id number]) [address] [address] [place] [address] Monocytes/100 WBC (Bld) 6.7 % Normal [facility] Comment on above: Performed By: #### C BCA, CMP, 2532-0, 3084-1, FEPR, 2276-4, 27697-7 #### [facility] ([id number]) [address] [place] [address] Neutrophils/100 WBC (Bld) 74.1 % Normal [facility] Comment on above: Performed By: #### C BCA, CMP, 2532-0, 3084-1, FEPR, 2276-4, 60694-0 #### [facility] ([id number]) [address] [place] [address] Platelet mean volume (Bld) [Entitic vol] 9.2 fL Normal 7-12 [facility] Comment on above: Performed By: #### C BCA, CMP, 2532-0, 3084-1, FEPR, 6-4, 57922-6 #### [facility] ([id number]) [address] [place] [address] Platelets (Bld) [#/Vol] 177 10*3/uL Normal 150-450 [facility] Comment on above: Performed By: #### C BCA, CMP, 2532-0, 3084-1, FEPR, 6-4, 59680-8 #### [facility] ([id number]) [address] [place] [address] RBC COUNT 3.13 X10E12/L Low 3.80-5.20 [facility] Comment on above: Performed By: #### C BCA, CMP, 2532-0, 3084-1, FEPR, 2276-4, 71992-5 #### [facility] ([id number]) [address] [place] [address] WBC (Bld) [#/Vol] 10.2 10*3/uL Normal 4.0-11.0 [facility] Comment on above: Performed By: #### C BCA, CMP, 2532-0, 3084-1, FEPR, 2276-4, 68309-2 #### [facility] ([id number]) [address] [place] [address] COMPREHENSIVE METABOLIC PANE [facility] 01-13-2024 Albumin [Mass/Vol] 2.6 g/dL Low 3.2-5.3 [facility] Comment on above: Performed By: #### C BCA, CMP, 2532-0, 3084-1, FEPR, 2276-4, 79257-9 #### [facility] ([id number]) [address] [place] [address] ALP [Catalytic activity/Vol] 133 U/L High 39-130 [facility] Comment on above: Performed By: #### C BCA, CMP, 2532-0, 3084-1, FEPR, 2276-4, 15921-7 #### [facility] ([id number]) [address] [place] [address] ALT [Catalytic activity/Vol] 7 U/L Normal 0-31 [facility] Comment on above: Performed By: #### C BCA, CMP, 2532-0, 3084-1, FEPR, 2276-4, 26396-7 #### [facility] ([id number]) [address] [place] [address] Anion gap [Moles/Vol] 8 mmol/L Normal 5-15 [facility] Comment on above: Performed By: #### C BCA, CMP, 2532-0, 3084-1, FEPR, 2276-4, 77202-8 #### [facility] ([id number]) [address] [place] [address] AST [Catalytic activity/Vol] 16 U/L Normal 0-41 [facility] Comment on above: Performed By: #### C BCA, CMP, 2532-0, 3084-1, FEPR, 2276-4, 96062-0 #### [facility] ([id number]) [address] [place] [address] Bilirubin [Mass/Vol] 0.2 mg/dL Low 0.3-1.2 [facility] Comment on above: Performed By: #### C BCA, CMP, 2532-0, 3084-1, FEPR, 2276-4, 45590-5 #### [facility] ([id number]) [address], [address] [place] [address] Calcium [Mass/Vol] 6.2 mg/dL Critically low 8.5-10.5 [facility] Comment on above: Performed By: #### C BCA, CMP, 2532-0, 3084-1, FEPR, 2276-4, 06906-0 #### [facility] ([id number]) [address] [place] [address] Chloride [Moles/Vol] 100 mmol/L Normal 98-109 [facility] Comment on above: Performed By: #### C BCA, CMP, 2532-0, 3084-1, FEPR, 2276-4, 21101-7 #### [facility] ([id number]) [address] [place] [address] CO2 [Moles/Vol] 24 mmol/L Normal 22-32 [facility] Comment on above: Performed By: #### C BCA, CMP, 2532-0, 3084-1, FEPR, 2276-4, 02458-8 #### [facility] ([id number]) [address] [place] [address] Creatinine [Mass/Vol] 0.64 mg/dL Normal 0.40-1.00 [facility] Comment on above: Result Comment: METH OD TRACEABLE TO IDMS STANDARD Performed By: #### C BCA, CMP, 2532-0, 3084-1, FEPR, 2276-4, 32707-8 #### [facility] ([id number]) [address] [place] [address] eGFR (CKD-EPI) NON-RACE DEPENDENT >90 Normal >59 [facility] Comment on above: Result Comment: Reported eGFR is based on the CKD-EPI 2020 equation that does not use a race coefficient. Performed By: #### C BCA, CMP, 2532-0, 3084-1, FEPR, 2276-4, 00291-0 #### [facility] ([id number]) [address] [place] [address] Glucose [Mass/Vol] 75 mg/dL Normal 65-99 [facility] Comment on above: Performed By: #### C BCA, CMP, 2532-0, 3084-1, FEPR, 2276-4, 26053-1 #### [facility] ([id number]) [address] [place] [address] Potassium [Moles/Vol] 4.3 mmol/L Normal 3.5-5.0 [facility] Comment on above: Performed By: #### C BCA, CMP, 2532-0, 3084-1, FEPR, 2276-4, 97984-6 #### [facility] ([id number]) [address] [place] [address] Protein [Mass/Vol] 5.2 g/dL Low 6.0-8.0 [facility] Comment on above: Performed By: #### C BCA, CMP, 2532-0, 3084-1, FEPR, 2276-4, 79191-3 #### [facility] ([id number]) [address] [place] [address] Sodium [Moles/Vol] 132 mmol/L Low 134-146 [facility] Comment on above: Performed By: #### C BCA, CMP, 2532-0, 3084-1, FEPR, 2276-4, 77253-1 #### [facility] ([id number]) [address] [address] Urea nitrogen [Mass/Vol] 9 mg/dL Normal 5-23 [facility] Comment on above: Performed By: #### C BCA, CMP, 2532-0, 3084-1, FEPR, 2276-4, 21529-0 #### [facility] ([id number]) [address], [address] [address] CBC AND AUTO DIFFon 01-12-20 24 ABSOLUTE BASOPHIL 0.0 X10E9/L Normal 0.0-0.2 [facility] Comment on above: Performed By: #### C BCA, CMP, 2532-0, 3084-1, FEPR, 6-4, 80982-7 #### [facility] ([id number]) [address] [address] ABSOLUTE NEUTROPHIL 12.4 X10E9/L High 1.5-6.6 [facility] Comment on above: Performed By: #### C BCA, CMP, 2532-0, 4-1, FEPR, 6-4, 36928-3 #### [facility] ([id number]) [address] [address] Basophils/100 WBC (Bld) 0.2 % Normal [facility] Comment on above: Performed By: #### C BCA, CMP, 2532-0, 3084-1, FEPR, 2276-4, 69092-7 #### [facility] ([id number]) [address] [address] Eosinophils (Bld) [#/Vol] 0.0 10*3/uL Normal 0.0-0.4 [facility] Comment on above: Performed By: #### C BCA, CMP, 2532-0, 3084-1, FEPR, 2276-4, 38022-3 #### [facility] ([id number]) [address] [address] [place] [address] Eosinophils/100 WBC (Bld) 0.1 % Normal [facility] Comment on above: Performed By: #### C BCA, CMP, 2532-0, 3084-1, FEPR, 2276-4, 76085-1 #### [facility] ([id number]) [address] [address] Erythrocyte distribution width (RBC) [Ratio] 15.5 % High 11.5-15.0 [facility] Comment on above: Performed By: #### C BCA, CMP, 2532-0, 3084-1, FEPR, 6-4, 99078-2 #### [facility] ([id number]) [address] [address] Hematocrit (Bld) [Volume fraction] 25.6 % Low 35-47 [facility] Comment on above: Performed By: #### C BCA, CMP, 2532-0, 4-1, FEPR, 6-4, 02824-6 #### [facility] ([id number]) [address] [address] Hemoglobin (Bld) [Mass/Vol] 8.5 g/dL Low 11.7-15.5 [facility] Comment on above: Performed By: #### C BCA, CMP, 2532-0, 3084-1, FEPR, 2276-4, 94728-3 #### [facility] ([id number]) [address] [address] Lymphocytes (Bld) [#/Vol] 1.0 10*3/uL Normal 1.0-3.5 [facility] Comment on above: Performed By: #### C BCA, CMP, 2532-0, 3084-1, FEPR, 6-4, 88510-8 #### [facility] ([id number]) [address], [address] [place] [address] Lymphocytes/100 WBC (Bld) 6.9 % Normal [facility] Comment on above: Performed By: #### C BCA, CMP, 2532-0, 4-1, FEPR, 6-4, 40555-9 #### [facility] ([id number]) [address], [address] [address] MCH (RBC) [Entitic mass] 24.4 pg Low 27-34 [facility] Comment on above: Performed By: #### C BCA, CMP, 2532-0, 4-1, FEPR, 6-4, 38378-1 #### [facility] ([id number]) [address], [address] [address] MCHC (RBC) [Mass/Vol] 33.2 g/dL Normal 32-36 [facility] Comment on above: Performed By: #### C BCA, CMP, 2532-0, 4-1, FEPR, 2275-4, 06227-1 #### [facility] ([id number]) [address], [address] [address] MCV (RBC) [Entitic vol] 73 fL Low 80-100 [facility] Comment on above: Performed By: #### C BCA, CMP, 2532-0, 4-1, FEPR, 6-4, 45573-6 #### [facility] ([id number]) [address] [address] Monocytes (Bld) [#/Vol] 0.7 10*3/uL Normal 0-0.9 [facility] Comment on above: Performed By: #### C BCA, CMP, 2532-0, 4-1, FEPR, 6-4, 72486-8 #### [facility] ([id number]) [address], [address] [place] [address] Monocytes/100 WBC (Bld) 5.0 % Normal [facility] Comment on above: Performed By: #### C BCA, CMP, 2532-0, 3084-1, FEPR, 2276-4, 36390-2 #### [facility] ([id number]) [address], [address] [place] [address] Neutrophils/100 WBC (Bld) 87.8 % Normal [facility] Comment on above: Performed By: #### C BCA, CMP, 2532-0, 3084-1, FEPR, 6-4, 59869-0 #### [facility] ([id number]) [address], [facility] [address] [place] [address] Platelet mean volume (Bld) [Entitic vol] 9.3 fL Normal 7-12 [facility] Comment on above: Performed By: #### C BCA, CMP, 2532-0, 3084-1, FEPR, 2276-4, 39400-4 #### [facility] ([id number]) [address], [address] [address] Platelets (Bld) [#/Vol] 192 10*3/uL Normal 150-450 [facility] Comment on above: Performed By: #### C BCA, CMP, 2532-0, 3084-1, FEPR, 2276-4, 14305-3 #### [facility] ([id number]) [address], [address] [place] [address] RBC COUNT 3.49 X10E12/L Low 3.80-5.20 [facility] Comment on above: Performed By: #### C BCA, CMP, 2532-0, 3084-1, FEPR, 2276-4, 97622-5 #### [facility] ([id number]) [address], [address] [place] [address] WBC (Bld) [#/Vol] 14.1 10*3/uL High 4.0-11.0 [facility] Comment on above: Performed By: #### C BCA, CMP, 2532-0, 3084-1, FEPR, 2276-4, 94174-8 #### [facility] ([id number]) [address], [address] [place] [address] ABSOLUTE BASOPHIL 0.0 X10E9/L Normal 0.0-0.2 [facility] Comment on above: Performed By: #### C BCA, CMP, 2532-0, 3084-1, FEPR, 6-4, 46076-7 #### [facility] ([id number]) [address], [address] [place] [address] ABSOLUTE NEUTROPHIL 8.2 X10E9/L High 1.5-6.6 [facility] Comment on above: Performed By: #### C BCA, CMP, 2532-0, 3084-1, FEPR, 6-4, 60948-9 #### [facility] ([id number]) [address], [address] [place] [address] Basophils/100 WBC (Bld) 0.3 % Normal [facility] Comment on above: Performed By: #### C BCA, CMP, 2532-0, 3084-1, FEPR, 6-4, 96585-9 #### [facility] ([id number]) [address], [address] [place] [address] Eosinophils (Bld) [#/Vol] 0.0 10*3/uL Normal 0.0-0.4 [facility] [facility] Comment on above: Performed By: #### C BCA, CMP, 2532-0, 3084-1, FEPR, 2276-4, 72762-2 #### [facility] ([id number]) [address] [address] Eosinophils/100 WBC (Bld) 0.2 % Normal [facility] Comment on above: Performed By: #### C BCA, CMP, 2532-0, 3084-1, FEPR, 2276-4, 86404-3 #### [facility] ([id number]) [address] [address] Erythrocyte distribution width (RBC) [Ratio] 15.4 % High 11.5-15.0 [facility] Comment on above: Performed By: #### C BCA, CMP, 2532-0, 3084-1, FEPR, 2276-4, 98977-3 #### [facility] ([id number]) [address] [address] Hematocrit (Bld) [Volume fraction] 24.4 % Low 35-47 [facility] Comment on above: Performed By: #### C BCA, CMP, 2532-0, 3084-1, FEPR, 6-4, 72372-9 #### [facility] ([id number]) [address] [address] Hemoglobin (Bld) [Mass/Vol] 8.1 g/dL Low 11.7-15.5 [facility] Comment on above: Performed By: #### C BCA, CMP, 2532-0, 3084-1, FEPR, 2276-4, 27142-2 #### [facility] ([id number]) [address] [address] Lymphocytes (Bld) [#/Vol] 1.2 10*3/uL Normal 1.0-3.5 [facility] Comment on above: Performed By: #### C BCA, CMP, 2532-0, 3084-1, FEPR, 2276-4, 66339-4 #### [facility] ([id number]) [address] [place] [address] Lymphocytes/100 WBC (Bld) 11.9 % Normal [facility] Comment on above: Performed By: #### C BCA, CMP, 2532-0, 3084-1, FEPR, 2276-4, 12613-2 #### [facility] ([id number]) [address] [address] [place] [address] MCH (RBC) [Entitic mass] 24.7 pg Low 27-34 [facility] Comment on above: Performed By: #### C BCA, CMP, 2532-0, 3084-1, FEPR, 6-4, 14182-7 #### [facility] ([id number]) [address] [address] MCHC (RBC) [Mass/Vol] 33.3 g/dL Normal 32-36 [facility] Comment on above: Performed By: #### C BCA, CMP, 2532-0, 3084-1, FEPR, 6-4, 98519-6 #### [facility] ([id number]) [address] [address] MCV (RBC) [Entitic vol] 74 fL Low 80-100 [facility] Comment on above: Performed By: #### C BCA, CMP, 2532-0, 4-1, FEPR, 6-4, 65630-3 #### [facility] ([id number]) [address] [address] Monocytes (Bld) [#/Vol] 0.4 10*3/uL Normal 0-0.9 [facility] Comment on above: Performed By: #### C BCA, CMP, 2532-0, 3084-1, FEPR, 2276-4, 84637-4 #### [facility] ([id number]) [address] [address] [place] [address] Monocytes/100 WBC (Bld) 3.7 % Normal [facility] Comment on above: Performed By: #### C BCA, CMP, 2532-0, 3084-1, FEPR, 2276-4, 54238-8 #### [facility] ([id number]) [address] [place] [address] Neutrophils/100 WBC (Bld) 83.9 % Normal [facility] Comment on above: Performed By: #### C BCA, CMP, 2532-0, 3084-1, FEPR, 2276-4, 24203-2 #### [facility] ([id number]) [address], [facility] [address] [place] [address] Platelet mean volume (Bld) [Entitic vol] 9.4 fL Normal 7-12 [facility] Comment on above: Performed By: #### C BCA, CMP, 2532-0, 3084-1, FEPR, 2276-4, 05690-4 #### [facility] ([id number]) [address] [place] [address] Platelets (Bld) [#/Vol] 170 10*3/uL Normal 150-450 [facility] Comment on above: Performed By: #### C BCA, CMP, 2532-0, 3084-1, FEPR, 2276-4, 14586-9 #### [facility] ([id number]) [address] [place] [address] RBC COUNT 3.29 X10E12/L Low 3.80-5.20 [facility] Comment on above: Performed By: #### C BCA, CMP, 2532-0, 3084-1, FEPR, 2276-4, 38674-2 #### [facility] ([id number]) [address] [place] [address] WBC (Bld) [#/Vol] 9.8 10*3/uL Normal 4.0-11.0 [facility] Comment on above: Performed By: #### C BCA, CMP, 2532-0, 3084-1, FEPR, 2276-4, 95428-2 #### [facility] ([id number]) [address] [place] [address] ABSOLUTE BASOPHIL 0.0 X10E9/L Normal 0.0-0.2 [facility] Comment on above: Performed By: #### C BCA, CMP, 2532-0, 3084-1, FEPR, 6-4, 77786-6 #### [facility] ([id number]) [address] [place] [address] ABSOLUTE NEUTROPHIL 4.0 X10E9/L Normal 1.5-6.6 [facility] Comment on above: Performed By: #### C BCA, CMP, 2532-0, 3084-1, FEPR, 6-4, 99353-5 #### [facility] ([id number]) [address] [place] [address] Basophils/100 WBC (Bld) 0.5 % Normal [facility] Comment on above: Performed By: #### C BCA, CMP, 2532-0, 3084-1, FEPR, 6-4, 47829-1 #### [facility] ([id number]) [address] [place] [address] Eosinophils (Bld) [#/Vol] 0.0 10*3/uL Normal 0.0-0.4 [facility] Comment on above: Performed By: #### C BCA, CMP, 2532-0, 3084-1, FEPR, 6-4, 93909-8 #### [facility] ([id number]) [address] [place] [address] Eosinophils/100 WBC (Bld) 0.2 % Normal [facility] Comment on above: Performed By: #### C BCA, CMP, 2532-0, 3084-1, FEPR, 2276-4, 10277-1 #### [facility] ([id number]) [address] [address] [place] [address] Erythrocyte distribution width (RBC) [Ratio] 15.9 % High 11.5-15.0 [facility] Comment on above: Performed By: #### C BCA, CMP, 2532-0, 3084-1, FEPR, 6-4, 11967-5 #### [facility] ([id number]) [address] [address] [place] [address] Hematocrit (Bld) [Volume fraction] 25.6 % Low 35-47 [facility] Comment on above: Performed By: #### C BCA, CMP, 2532-0, 3084-1, FEPR, 6-4, 26088-7 #### [facility] ([id number]) [address], [facility] [address] [place] [address] Hemoglobin (Bld) [Mass/Vol] 8.7 g/dL Low 11.7-15.5 [facility] Comment on above: Performed By: #### C BCA, CMP, 2532-0, 3084-1, FEPR, 6-4, 04069-1 #### [facility] ([id number]) [address] [address] [place] [address] Lymphocytes (Bld) [#/Vol] 1.8 10*3/uL Normal 1.0-3.5 [facility] Comment on above: Performed By: #### C BCA, CMP, 2532-0, 3084-1, FEPR, 6-4, 29718-4 #### [facility] ([id number]) [address] [address] [place] [address] Lymphocytes/100 WBC (Bld) 28.5 % Normal [facility] Comment on above: Performed By: #### C BCA, CMP, 2532-0, 3084-1, FEPR, 6-4, 11240-8 #### [facility] ([id number]) [address] [place] [address] MCH (RBC) [Entitic mass] 25.4 pg Low 27-34 [facility] Comment on above: Performed By: #### C BCA, CMP, 2532-0, 3084-1, FEPR, 6-4, 44049-2 #### [facility] ([id number]) [address], [facility] [address] [place] [address] MCHC (RBC) [Mass/Vol] 33.9 g/dL Normal 32-36 [facility] Comment on above: Performed By: #### C BCA, CMP, 2532-0, 3084-1, FEPR, 6-4, 95667-7 #### [facility] ([id number]) [address] [place] [address] MCV (RBC) [Entitic vol] 75 fL Low 80-100 [facility] Comment on above: Performed By: #### C BCA, CMP, 2532-0, 3084-1, FEPR, 2275-, 96307-7 #### [facility] ([id number]) [address], [facility] [address] [place] [address] Monocytes (Bld) [#/Vol] 0.4 10*3/uL Normal 0-0.9 [facility] Comment on above: Performed By: #### C BCA, CMP, 2532-0, 3084-1, FEPR, 6-4, 45711-2 #### [facility] ([id number]) [address] [address] Monocytes/100 WBC (Bld) 6.1 % Normal [facility] Comment on above: Performed By: #### C BCA, CMP, 2532-0, 3084-1, FEPR, 6-4, 21433-1 #### [facility] ([id number]) [address] [place] [address] Neutrophils/100 WBC (Bld) 64.7 % Normal [facility] Comment on above: Performed By: #### C BCA, CMP, 2532-0, 3084-1, FEPR, 2276-4, 66356-8 #### [facility] ([id number]) [address] [place] [address] Platelet mean volume (Bld) [Entitic vol] 9.4 fL Normal 7-12 [facility] Comment on above: Performed By: #### C BCA, CMP, 2532-0, 3084-1, FEPR, 2276-4, 99158-8 #### [facility] ([id number]) [address] [address] Platelets (Bld) [#/Vol] 155 10*3/uL Normal 150-450 [facility] Comment on above: Performed By: #### C BCA, CMP, 2532-0, 3084-1, FEPR, 2276-4, 42799-9 #### [facility] ([id number]) [address] [address] RBC COUNT 3.42 X10E12/L Low 3.80-5.20 [facility] Comment on above: Performed By: #### C BCA, CMP, 2532-0, 3084-1, FEPR, 2276-4, 92681-6 #### [facility] ([id number]) [address] [address] WBC (Bld) [#/Vol] 6.2 10*3/uL Normal 4.0-11.0 [facility] Comment on above: Performed By: #### C BCA, CMP, 2532-0, 3084-1, FEPR, 2276-4, 97571-7 #### [facility] ([id number]) [address] [place] [address] COMPREHENSIVE METABOLIC PANE Vinay 01-12-2024 Albumin [Mass/Vol] 2.8 g/dL Low 3.2-5.3 [facility] Comment on above: Performed By: #### C BCA, CMP, 2532-0, 3084-1, FEPR, 2276-4, 09768-8 #### [facility] ([id number]) [address], [address] [place] [address] ALP [Catalytic activity/Vol] 152 U/L High 39-130 [facility] Comment on above: Performed By: #### C BCA, CMP, 2532-0, 3084-1, FEPR, 6-4, 69561-3 #### [facility] ([id number]) [address], [address] [place] [address] ALT [Catalytic activity/Vol] 10 U/L Normal 0-31 [facility] Comment on above: Performed By: #### C BCA, CMP, 2532-0, 3084-1, FEPR, 2276-4, 76759-6 #### [facility] ([id number]) [address], [address] [place] [address] Anion gap [Moles/Vol] 7 mmol/L Normal 5-15 [facility] Comment on above: Performed By: #### C BCA, CMP, 2532-0, 3084-1, FEPR, 2276-4, 22776-3 #### [facility] ([id number]) [address], [address] [place] [address] AST [Catalytic activity/Vol] 18 U/L Normal 0-41 [facility] Comment on above: Performed By: #### C BCA, CMP, 2532-0, 3084-1, FEPR, 2276-4, 60393-8 #### [facility] ([id number]) [address] [place] [address] Bilirubin [Mass/Vol] 0.3 mg/dL Normal 0.3-1.2 [facility] Comment on above: Performed By: #### C BCA, CMP, 2532-0, 3084-1, FEPR, 2276-4, 18519-5 #### [facility] ([id number]) [address], [address] [place] [address] Calcium [Mass/Vol] 6.6 mg/dL Critically low 8.5-10.5 [facility] Comment on above: Performed By: #### C BCA, CMP, 2532-0, 3084-1, FEPR, 6-4, 12504-8 #### [facility] ([id number]) [address] [place] [address] Chloride [Moles/Vol] 104 mmol/L Normal 98-109 [facility] Comment on above: Performed By: #### C BCA, CMP, 2532-0, 3084-1, FEPR, 2276-4, 82203-0 #### [facility] ([id number]) [address] [place] [address] CO2 [Moles/Vol] 23 mmol/L Normal 22-32 [facility] Comment on above: Performed By: #### C BCA, CMP, 2532-0, 3084-1, FEPR, 2276-4, 91277-4 #### [facility] ([id number]) [address] [place] [address] Creatinine [Mass/Vol] 0.59 mg/dL Normal 0.40-1.00 [facility] Comment on above: Result Comment: METH OD TRACEABLE TO IDMS STANDARD Performed By: #### C BCA, CMP, 2532-0, 3084-1, FEPR, 2276-4, 66946-1 #### [facility] ([id number]) [address] [place] [address] eGFR (CKD-EPI) NON-RACE DEPENDENT >90 Normal >59 [facility] Comment on above: Result Comment: Reported eGFR is based on the CKD-EPI 2020 equation that does not use a race coefficient. Performed By: #### C BCA, CMP, 2532-0, 3084-1, FEPR, 2276-4, 74195-3 #### [facility] ([id number]) [address] [place] [address] Glucose [Mass/Vol] 100 mg/dL High 65-99 [facility] Comment on above: Performed By: #### C BCA, CMP, 2532-0, 3084-1, FEPR, 2276-4, 81852-2 #### [facility] ([id number]) [address] [place] [address] Potassium [Moles/Vol] 4.3 mmol/L Normal 3.5-5.0 [facility] Comment on above: Performed By: #### C BCA, CMP, 2532-0, 3084-1, FEPR, 2276-4, 04383-5 #### [facility] ([id number]) [address] [place] [address] Protein [Mass/Vol] 5.4 g/dL Low 6.0-8.0 [facility] Comment on above: Performed By: #### C BCA, CMP, 2532-0, 3084-1, FEPR, 2276-4, 49468-7 #### [facility] ([id number]) [address] [place] [address] Sodium [Moles/Vol] 134 mmol/L Normal 134-146 [facility] Comment on above: Performed By: #### C BCA, CMP, 2532-0, 3084-1, FEPR, 2276-4, 73874-7 #### [facility] ([id number]) [address] [place] [address] Urea nitrogen [Mass/Vol] 9 mg/dL Normal 5-23 [facility] Comment on above: Performed By: #### C BCA, CMP, 2532-0, 3084-1, FEPR, 2276-4, 28340-6 #### [facility] ([id number]) [address] [place] [address] Albumin [Mass/Vol] 2.8 g/dL Low 3.2-5.3 [facility] Comment on above: Performed By: #### C BCA, CMP, 2532-0, 3084-1, FEPR, 2276-4, 45530-4 #### [facility] ([id number]) [address], [address] [place] [address] ALP [Catalytic activity/Vol] 149 U/L High 39-130 [facility] Comment on above: Performed By: #### C BCA, CMP, 2532-0, 3084-1, FEPR, 2276-4, 74586-3 #### [facility] ([id number]) [address] [place] [address] ALT [Catalytic activity/Vol] 10 U/L Normal 0-31 [facility] Comment on above: Performed By: #### C BCA, CMP, 2532-0, 3084-1, FEPR, 2276-4, 65641-2 #### [facility] ([id number]) [address] [place] [address] Anion gap [Moles/Vol] 8 mmol/L Normal 5-15 [facility] Comment on above: Performed By: #### C BCA, CMP, 2532-0, 3084-1, FEPR, 2276-4, 81905-7 #### [facility] ([id number]) [address] [place] [address] AST [Catalytic activity/Vol] 15 U/L Normal 0-41 [facility] Comment on above: Performed By: #### C BCA, CMP, 2532-0, 3084-1, FEPR, 2276-4, 62510-8 #### [facility] ([id number]) [address] [place] [address] Bilirubin [Mass/Vol] 0.2 mg/dL Low 0.3-1.2 [facility] Comment on above: Performed By: #### C BCA, CMP, 2532-0, 3084-1, FEPR, 2276-4, 23624-3 #### [facility] ([id number]) [address] [place] [address] Calcium [Mass/Vol] 7.1 mg/dL Low 8.5-10.5 [facility] Comment on above: Performed By: #### C BCA, CMP, 2532-0, 3084-1, FEPR, 2276-4, 81657-3 #### [facility] ([id number]) [address] [place] [address] Chloride [Moles/Vol] 107 mmol/L Normal 98-109 [facility] Comment on above: Performed By: #### C BCA, CMP, 2532-0, 3084-1, FEPR, 2276-4, 24782-8 #### [facility] ([id number]) [address] [place] [address] CO2 [Moles/Vol] 23 mmol/L Normal 22-32 [facility] Comment on above: Performed By: #### C BCA, CMP, 2532-0, 3084-1, FEPR, 2276-4, 23546-1 #### [facility] ([id number]) [address] [place] [address] Creatinine [Mass/Vol] 0.60 mg/dL Normal 0.40-1.00 [facility] Comment on above: Result Comment: METH OD TRACEABLE TO IDMS STANDARD Performed By: #### C BCA, CMP, 2532-0, 3084-1, FEPR, 2276-4, 55288-9 #### [facility] ([id number]) [address] [place] [address] eGFR (CKD-EPI) NON-RACE DEPENDENT >90 Normal >59 [facility] Comment on above: Result Comment: Reported eGFR is based on the CKD-EPI 2020 equation that does not use a race coefficient. Performed By: #### C BCA, CMP, 2532-0, 3084-1, FEPR, 2276-4, 47869-3 #### [facility] ([id number]) [address] [place] [address] Glucose [Mass/Vol] 80 mg/dL Normal 65-99 [facility] Comment on above: Performed By: #### C BCA, CMP, 2532-0, 3084-1, FEPR, 2276-4, 20940-2 #### [facility] ([id number]) [address] [place] [address] Potassium [Moles/Vol] 4.1 mmol/L Normal 3.5-5.0 [facility] Comment on above: Performed By: #### C BCA, CMP, 2532-0, 3084-1, FEPR, 2276-4, 59470-3 #### [facility] ([id number]) [address] [place] [address] Protein [Mass/Vol] 5.5 g/dL Low 6.0-8.0 [facility] Comment on above: Performed By: #### C BCA, CMP, 2532-0, 3084-1, FEPR, 2276-4, 06232-0 #### [facility] ([id number]) [address] [place] [address] Sodium [Moles/Vol] 138 mmol/L Normal 134-146 [facility] Comment on above: Performed By: #### C BCA, CMP, 2532-0, 3084-1, FEPR, 2276-4, 81600-1 #### [facility] ([id number]) [address] [place] [address] Urea nitrogen [Mass/Vol] 8 mg/dL Normal 5-23 [facility] Comment on above: Performed By: #### C BCA, CMP, 2532-0, 3084-1, FEPR, 2276-4, 49409-2 #### [facility] ([id number]) [address] [place] [address] CORD ARTERIAL GASon 01-12-20 24 SYLVIA'S TEST Normal [facility] Comment on above: Performed By: #### C BCA, CMP, 2532-0, 3084-1, FEPR, 6-4, 40935-8 #### [facility] ([id number]) [address] [place] [address] BASE,DEFICIT 4.0 MMOL/L High 0.0-2.0 [facility] Comment on above: Performed By: #### C BCA, CMP, 2532-0, 3084-1, FEPR, 2276-4, 41077-3 #### [facility] ([id number]) [address] [place] [address] HCO3 (Bld) [Moles/Vol] 25.8 mmol/L Normal 22-26 [facility] Comment on above: Performed By: #### C BCA, CMP, 2532-0, 3084-1, FEPR, 2276-4, 78498-0 #### [facility] ([id number]) [address] [place] [address] INSP. O2 CONC. 21 % Normal [facility] Comment on above: Performed By: #### C BCA, CMP, 2532-0, 3084-1, FEPR, 2276-4, 51800-9 #### [facility] ([id number]) [address] [place] [address] Oxygen (Bld) [Partial pressure] 10 mm[Hg] Low 12-24 [facility] Comment on above: Performed By: #### C BCA, CMP, 2532-0, 3084-1, FEPR, 2276-4, 37852-2 #### [facility] ([id number]) [address] [place] [address] Oxygen saturation in Blood 7.0 % Low 7.1-39.5 [facility] Comment on above: Performed By: #### C BCA, CMP, 2532-0, 3084-1, FEPR, 2276-4, 17769-7 #### [facility] ([id number]) [address] [place] [address] OXYGEN SOURCE RoomAir Normal [facility] Comment on above: Performed By: #### C BCA, CMP, 2532-0, 3084-1, FEPR, 2276-4, 00746-0 #### [facility] ([id number]) [address], [address] [place] [address] PCO2 67.1 MMHG High 40.8-57.6 [facility] Comment on above: Performed By: #### C BCA, CMP, 2532-0, 3084-1, FEPR, 2276-4, 95324-2 #### [facility] ([id number]) [address], [address] [place] [address] pH (Bld) 7.192 [pH] Low 7.24-7.30 [facility] Comment on above: Performed By: #### C BCA, CMP, 2532-0, 3084-1, FEPR, 2276-4, 67959-8 #### [facility] ([id number]) [address], [address] [place] [address] SAMPLE SITE [facility] Comment on above: Performed By: #### C BCA, CMP, 2532-0, 3084-1, FEPR, 2276-4, 39685-2 #### [facility] ([id number]) [address], [address] [place] [address] SAMPLE TYPE UMBILICALTENAHA Normal [facility] Comment on above: Performed By: #### C BCA, CMP, 2532-0, 3084-1, FEPR, 6-4, 65840-0 #### [facility] ([id number]) [address], [address] [place] [address] CORD VENOUS GASon 01-12-2024 SYLVIA'S TEST Normal [facility] Comment on above: Performed By: #### C BCA, CMP, 2532-0, 3084-1, FEPR, 2276-4, 97869-2 #### [facility] ([id number]) [address], [address] [place] [address] BASE,DEFICIT 4.0 MMOL/L High 0.0-2.0 [facility] Comment on above: Performed By: #### C BCA, CMP, 2532-0, 3084-1, FEPR, 6-4, 92803-1 #### [facility] ([id number]) [address], [address] [place] [address] HCO3 (Bld) [Moles/Vol] 21.9 mmol/L Normal 20.0-24.0 [facility] Comment on above: Performed By: #### C BCA, CMP, 2532-0, 3084-1, FEPR, 2276-4, 37819-0 #### [facility] ([id number]) [address], [address] [place] [address] INSP. O2 CONC. 21 % Normal [facility] Comment on above: Performed By: #### C BCA, CMP, 2532-0, 3084-1, FEPR, 2276-4, 36739-4 #### [facility] ([id number]) [address], [address] [place] [address] Oxygen (Bld) [Partial pressure] 34 mm[Hg] Normal 22-35 [facility] Comment on above: Performed By: #### C BCA, CMP, 2532-0, 3084-1, FEPR, 2276-4, 39198-1 #### [facility] ([id number]) [address], [address] [place] [address] Oxygen saturation in Blood 61.0 % Normal 32.5-66.3 [facility] Comment on above: Performed By: #### C BCA, CMP, 2532-0, 3084-1, FEPR, 6-4, 28872-3 #### [facility] ([id number]) [address], [address] [place] [address] OXYGEN SOURCE RoomAir Normal [facility] Comment on above: Performed By: #### C BCA, CMP, 2532-0, 3084-1, FEPR, 6-4, 27929-6 #### [facility] ([id number]) [address], [address] [place] [address] PCO2 42.7 MMHG Normal 32.6-43.8 [facility] Comment on above: Performed By: #### C BCA, CMP, 2532-0, 3084-1, FEPR, 2276-4, 54605-6 #### [facility] ([id number]) [address], [address] [place] [address] pH (Bld) 7.318 [pH] Normal 7.25-7.37 [facility] Comment on above: Performed By: #### C BCA, CMP, 2532-0, 3084-1, FEPR, 2276-4, 44903-9 #### [facility] ([id number]) [address], [address] [place] [address] SAMPLE SITE [employer] Normal [facility] Comment on above: Performed By: #### C BCA, CMP, 2532-0, 3084-1, FEPR, 2276-4, 65582-4 #### [facility] ([id number]) [address], [address] [place] [address] SAMPLE TYPE UMBILICALCORD Normal [facility] Comment on above: Performed By: #### C BCA, CMP, 2532-0, 3084-1, FEPR, 2276-4, 73220-8 #### [facility] ([id number]) [address] [facility], [address] [place] [address] STREP B PCR VAG/RECTon 01-11 S. agalactiae Org specific cx Ql (Vag+Rectum) Negative Normal NEG [facility] Comment on above: Performed By: #### 7 2607-5 #### [facility] ([id number]) [address] [place] [address], [address] [place] [address] Surgical Pathologyon 024 Surgical Pathology Normal [facility] Comment on above: Result Comment: [facility] [address] [place] [address] Surgical Pathology Consultation Patient Name:IVY BROWNLEE:1990 (Age: 33)Gender:FTaken:4Reported:4Physician(s):Brandi Last MD ([phone])Copy To: Rec. #:[id number]: #[id number] Final Pathologic Diagnosis Placenta: Third trimester placenta. Three vessel umbilical cord. Mark-Davon changes. Report Electronically Signed Out [email or web address] Mcleod MD Interpretation performed at [facility], [address] [place] [address], License number: [id number]. Clinical History Pre-eclampsia, severe. Gross Description Received [...] Rolled membrane, two sections of cord B-D Hand Heel Seat Fitter sections of placenta E Additional membrane roll (5,ss,[id number]) . /4RG Specimen(s) Received Placenta Fee Codes(s): 1; 68812 XR ABDOMEN AP 1 VWon 024 XR [...] Haro MD on 01/12/2024 10:35 AM Normal [facility] CBC AND AUTO DIFFon 01-11-20 24 Band form neutrophils/100 WBC (Bld) 2.0 % Normal [facility] Comment on above: Performed By: #### C BCA, CMP, 2532-0, 2314-1, FEPR, 2276-4, 92630-2 #### [facility] ([id number]) [address], [facility] [address] [place] [address] Erythrocyte distribution width (RBC) [Ratio] 15.6 % High 11.5-15.0 [facility] Comment on above: Performed By: #### C BCA, CMP, 2532-0, 3084-1, FEPR, 6-4, 97557-3 #### [facility] ([id number]) [address] [address] [place] [address] Hematocrit (Bld) [Volume fraction] 27.9 % Low 35-47 [facility] Comment on above: Performed By: #### C BCA, CMP, 2532-0, 3084-1, FEPR, 6-4, 66018-6 #### [facility] ([id number]) [address] [address] Hemoglobin (Bld) [Mass/Vol] 9.3 g/dL Low 11.7-15.5 [facility] Comment on above: Performed By: #### C BCA, CMP, 2532-0, 3084-1, FEPR, 6-4, 66996-4 #### [facility] ([id number]) [address] [address] [place] [address] Lymphocytes (Bld) [#/Vol] 1.9 10*3/uL Normal 1.0-3.5 [facility] Comment on above: Performed By: #### C BCA, CMP, 2532-0, 3084-1, FEPR, 6-4, 90370-6 #### [facility] ([id number]) [address] [address] Lymphocytes/100 WBC (Bld) 24.0 % Normal [facility] Comment on above: Performed By: #### C BCA, CMP, 2532-0, 3084-1, FEPR, 6-4, 31837-9 #### [facility] ([id number]) [address], [address] [place] [address] MCH (RBC) [Entitic mass] 24.8 pg Low 27-34 [facility] Comment on above: Performed By: #### C BCA, CMP, 2532-0, 3084-1, FEPR, 6-4, 83950-4 #### [facility] ([id number]) [address], [address] [place] [address] MCHC (RBC) [Mass/Vol] 33.4 g/dL Normal 32-36 [facility] Comment on above: Performed By: #### C BCA, CMP, 2532-0, 4-1, FEPR, 6-4, 66273-6 #### [facility] ([id number]) [address], [address] [place] [address] MCV (RBC) [Entitic vol] 74 fL Low 80-100 [facility] Comment on above: Performed By: #### C BCA, CMP, 2532-0, 4-1, FEPR, 6-4, 21576-1 #### [facility] ([id number]) [address], [facility] [address] [place] [address] Metamyelocytes/100 WBC (Bld) 1.0 % Normal [facility] Comment on above: Performed By: #### C BCA, CMP, 2532-0, 4-1, FEPR, 6-4, 22796-0 #### [facility] ([id number]) [address], [facility] [address] [place] [address] Monocytes (Bld) [#/Vol] 0.4 10*3/uL Normal 0-0.9 [facility] Comment on above: Performed By: #### C BCA, CMP, 2532-0, 4-1, FEPR, 6-4, 41704-6 #### [facility] ([id number]) [address], [address] [place] [address] Monocytes/100 WBC (Bld) 5.0 % Normal [facility] Comment on above: Performed By: #### C BCA, CMP, 2532-0, 3084-1, FEPR, 2276-4, 94597-9 #### [facility] ([id number]) [address], [address] [place] [address] Neutrophils (Bld) [#/Vol] 5.4 10*3/uL Normal 1.5-6.6 [facility] Comment on above: Performed By: #### C BCA, CMP, 2532-0, 3084-1, FEPR, 6-4, 26753-3 #### [facility] ([id number]) [address], [facility] [address] [place] [address] NUCLEATED RBC 2.0 /100 WBC High 0.0-1.0 [facility] Comment on above: Performed By: #### C BCA, CMP, 2532-0, 3084-1, FEPR, 6-4, 82955-9 #### [facility] ([id number]) [address], [address] [place] [address] Platelet mean volume (Bld) [Entitic vol] 9.6 fL Normal 7-12 [facility] Comment on above: Performed By: #### C BCA, CMP, 2532-0, 3084-1, FEPR, 2276-4, 43755-5 #### [facility] ([id number]) [address], [address] [place] [address] Platelets (Bld) [#/Vol] 186 10*3/uL Normal 150-450 [facility] Comment on above: Performed By: #### C BCA, CMP, 2532-0, 3084-1, FEPR, 2276-4, 48938-0 #### [facility] ([id number]) [address], [address] [place] [address] POLYCHROMASIA 1+ Abnormal NONE [facility] Comment on above: Performed By: #### C BCA, CMP, 2532-0, 3084-1, FEPR, 2276-4, 94488-5 #### [facility] ([id number]) [address], [address] [place] [address] RBC COUNT 3.75 X10E12/L Low 3.80-5.20 [facility] Comment on above: Performed By: #### C BCA, CMP, 2532-0, 3084-1, FEPR, 2276-4, 39269-3 #### [facility] ([id number]) [address], [address] [place] [address] SEG NEUTROPHIL 68.0 % Normal [facility] Comment on above: Performed By: #### C BCA, CMP, 2532-0, 3084-1, FEPR, 2276-4, 86294-8 #### [facility] ([id number]) [address], [address] [place] [address] WBC (Bld) [#/Vol] 7.8 10*3/uL Normal 4.0-11.0 [facility] Comment on above: Performed By: #### C BCA, CMP, 2532-0, 3084-1, FEPR, 2276-4, 96874-7 #### [facility] ([id number]) [address], [address] [place] [address] COMPREHENSIVE METABOLIC PANE Vinay 01-11-2024 Albumin [Mass/Vol] 3.2 g/dL Normal 3.2-5.3 [facility] Comment on above: Performed By: #### C BCA, CMP, 2532-0, 3084-1, FEPR, 2276-4, 40178-1 #### [facility] ([id number]) [address], [address] [place] [address] ALP [Catalytic activity/Vol] 169 U/L High 39-130 [facility] Comment on above: Performed By: #### C BCA, CMP, 2532-0, 3084-1, FEPR, 2276-4, 93156-0 #### [facility] ([id number]) [address], [address] [place] [address] ALT [Catalytic activity/Vol] 8 U/L Normal 0-31 [facility] Comment on above: Performed By: #### C BCA, CMP, 2532-0, 3084-1, FEPR, 2276-4, 82532-6 #### [facility] ([id number]) [address], [address] [place] [address] Anion gap [Moles/Vol] 12 mmol/L Normal 5-15 [facility] Comment on above: Performed By: #### C BCA, CMP, 2532-0, 3084-1, FEPR, 2276-4, 31797-6 #### [facility] ([id number]) [address], [address] [place] [address] AST [Catalytic activity/Vol] 14 U/L Normal 0-41 [facility] Comment on above: Performed By: #### C BCA, CMP, 2532-0, 3084-1, FEPR, 2276-4, 00795-9 #### [facility] ([id number]) [address], [address] [place] [address] Bilirubin [Mass/Vol] 0.2 mg/dL Low 0.3-1.2 [facility] Comment on above: Performed By: #### C BCA, CMP, 2532-0, 3084-1, FEPR, 2276-4, 23575-3 #### [facility] ([id number]) [address], [address] [place] [address] Calcium [Mass/Vol] 8.4 mg/dL Low 8.5-10.5 [facility] Comment on above: Performed By: #### C BCA, CMP, 2532-0, 3084-1, FEPR, 2276-4, 63443-9 #### [facility] ([id number]) [address], [address] [place] [address] Chloride [Moles/Vol] 111 mmol/L High 98-109 [facility] Comment on above: Performed By: #### C BCA, CMP, 2532-0, 3084-1, FEPR, 2276-4, 86241-8 #### [facility] ([id number]) [address], [address] [place] [address] CO2 [Moles/Vol] 19 mmol/L Low 22-32 [facility] Comment on above: Performed By: #### C BCA, CMP, 2532-0, 3084-1, FEPR, 2276-4, 36317-8 #### [facility] ([id number]) [address], [address] [place] [address] Creatinine [Mass/Vol] 0.57 mg/dL Normal 0.40-1.00 [facility] Comment on above: Result Comment: METH OD TRACEABLE TO IDMS STANDARD Performed By: #### C BCA, CMP, 2532-0, 3084-1, FEPR, 2276-4, 92691-1 #### [facility] ([id number]) [address], [address] [place] [address] eGFR (CKD-EPI) NON-RACE DEPENDENT >90 Normal >59 [facility] Comment on above: Result Comment: Reported eGFR is based on the CKD-EPI 2020 equation that does not use a race coefficient. Performed By: #### C BCA, CMP, 2532-0, 3084-1, FEPR, 2276-4, 28233-0 #### [facility] ([id number]) [address], [address] [place] [address] Glucose [Mass/Vol] 80 mg/dL Normal 65-99 [facility] Comment on above: Performed By: #### C BCA, CMP, 2532-0, 3084-1, FEPR, 2276-4, 76445-1 #### [facility] ([id number]) [address], [address] [place] [address] Potassium [Moles/Vol] 3.9 mmol/L Normal 3.5-5.0 [facility] Comment on above: Performed By: #### C BCA, CMP, 2532-0, 3084-1, FEPR, 2276-4, 84349-7 #### [facility] ([id number]) [address], [address] [place] [address] Protein [Mass/Vol] 6.3 g/dL Normal 6.0-8.0 [facility] Comment on above: Performed By: #### C BCA, CMP, 2532-0, 3084-1, FEPR, 2276-4, 82726-9 #### [facility] ([id number]) [address], [address] [place] [address] Sodium [Moles/Vol] 142 mmol/L Normal 134-146 [facility] Comment on above: Performed By: #### C BCA, CMP, 2532-0, 3084-1, FEPR, 2276-4, 14320-5 #### [facility] ([id number]) [address], [address] [place] [address] Urea nitrogen [Mass/Vol] 9 mg/dL Normal 5-23 [facility] Comment on above: Performed By: #### C BCA, CMP, 2532-0, 3084-1, FEPR, 2276-4, 07714-0 #### [facility] ([id number]) [address], [address] [place] [address] DRUG SCREEN, URINEon 024 AMPHETAMINE/METHAMP Negative Normal [facility]G [facility] Comment on above: Result Comment: AMPH /METH screening cut off = 1000 ng/mL Performed By: #### D LITTLE #### [facility] ([id number]) [address], [address] [place] [address] BARBITURATES Negative Normal NEG [facility] Comment on above: Result Comment: Sol iturates screening cut off value = 200 ng/mL Performed By: #### D LITTLE #### [facility] ([id number]) [address], [address] [place] [address] BENZODIAZEPINES Negative Normal NEG [facility] Comment on above: Result Comment: Laci odiazepines screening cut off value = 200 ng/mL Performed By: #### D LITTLE #### [facility] ([id number]) [address], [address] [place] [address] CANNABINOIDS Negative Normal NEG [facility] Comment on above: Result Comment: Neno abinoids/THC screening cut off value = 50 ng/mL Performed By: #### D LITTLE #### [facility] ([id number]) [address], [address] [place] [address] COCAINE METABOLITE Negative Normal NEG [facility] Comment on above: Result Comment: Coca ine screening cut off value = 300 ng/mL Performed By: #### D LITTLE #### [facility] ([id number]) [address], [address] [place] [address] ECSTASY Negative Normal NEG [facility] Comment on above: Result Comment: Ecst asy screening cut off value = 500 ng/mL This report is intended for use in clinical monitoring or management of patients. Performed By: #### D LITTLE #### [facility] ([id number]) [address], [address] [place] [address] METHADONE Negative Normal NEG [facility] Comment on above: Result Comment: Meth adone screening cut off value = 300 ng/mL. Performed By: #### D LITTLE #### [facility] ([id number]) [address], [address] [place] [address] OPIATES Negative Normal NEG [facility] Comment on above: Result Comment: Opia ermias screening cut off value = 300 ng/mL NOTE: This test is used for the detection of codeine, hydrocodone (>1000 ng/mL), morphine and hydromorphone (>900 ng/mL) in urine. Performed By: #### D LITTLE #### [facility] ([id number]) [address], [address] [place] [address] OXYCODONE Negative Normal NEG [facility] Comment on above: Result Comment: Oxyc odone screening cut off value = 300 ng/mL NOTE: This test is used for the detection of oxycodone and oxymorphone in urine. Performed By: #### D LITTLE #### [facility] ([id number]) [address], [address] [place] [address] PHENCYCLIDINE Negative Normal NEG [facility] Comment on above: Result Comment: Phen cyclidine screening cut off value = 25 ng/mL Performed By: #### D LITTLE #### [facility] ([id number]) [address], [address] [place] [address] FERRITINon 01-11-2024 Ferritin [Mass/Vol] 8 ng/mL Low 11-307 [facility] Comment on above: Performed By: #### C BCA, CMP, 2532-0, 3084-1, FEPR, 2276-4, 08844-8 #### [facility] ([id number]) [address], [address] [place] [address] IRON PROFILEon 01-11-2024 Iron [Mass/Vol] 24 ug/dL Low 50-170 [facility] Comment on above: Performed By: #### C BCA, CMP, 2532-0, 3084-1, FEPR, 2276-4, 18819-5 #### [facility] ([id number]) [address], [address] [place] [address] IRON BINDING 598 ug/dL High 250-425 [facility] Comment on above: Performed By: #### C BCA, CMP, 2532-0, 3084-1, FEPR, 2276-4, 18295-8 #### [facility] ([id number]) [address], [address] [place] [address] IRON SATURATION 4 % SATURATION Low 15-50 [facility] Comment on above: Performed By: #### C BCA, CMP, 2532-0, 3084-1, FEPR, 2276-4, 14296-8 #### [facility] ([id number]) [address], [address] [place] [address] LDH [Catalytic activity/Vol] on 01-11-2024 LDH 151 U/L Normal 100-235 [facility] Comment on above: Performed By: #### C BCA, CMP, 2532-0, 3084-1, FEPR, 2276-4, 91580-2 #### [facility] ([id number]) [address], [address] [place] [address] PROTEIN CREAT RATIOon 2023 RANDOM URINE PROTEIN 350 mg/L High <120 [facility] Comment on above: Performed By: #### U PCR #### [facility] ([id number]) [address], [address] [place] [address] U/PRO/MANAGER OUTREACH RATIO CALC 2.00 High <0.2 [facility] Comment on above: Result Comment: Neph rotic Syndrome is associated with ratios >3.5 Performed By: #### U PCR #### [facility] ([id number]) [address], [address] [place] [address] URINE CREATININE,RDM 17.47 mg/dL Normal [facility] Comment on above: Performed By: #### U PCR #### [facility] ([id number]) [address] [place] [address], [address] [place] [address] T. pallidum IgG+IgM IA Ql (S )on 01-11-2024 Syphilis Total <0.2 Normal 0.0-0.8 [facility] Comment on above: Result Comment: NON REACTIVE No serologic evidence of infection to Treponema pallidum (syphilis). Repeat testing may be considered in patients with suspected acute or primary syphilis in 2 to 4 weeks. Performed By: #### C BCA, CMP, 2532-0, 3084-1, FEPR, 2276-4, 78832-9 #### [facility] ([id number]) [address] [place] [address], [address] [place] [address] URIC ACIDon 01-11-2024 Urate [Mass/Vol] 7.6 mg/dL High 2.6-7.2 [facility] Comment on above: Performed By: #### C BCA, CMP, 2532-0, 3084-1, FEPR, 2276-4, 98346-8 #### [facility] ([id number]) [address] [place] [address], [address] [place] [address] [place]ie B Abon 10-26-2023 [place] tp. B1 <1:10 Normal <1:10 [facility] Comment on above: Performed By: #### C MVG, LUPPRO, AT3A, PROCAC, PROSAC, CMVM, CMIS, TOXOG, TOXOM, HOCYS #### [facility] [address] [place] [address] Director Corporate Sales: Tanvir Macias MD #### APTMUT, AF5MUT, AMTHFR, ACOXA9, APARVP, ACOXAB #### [facility] [address] [place] [address] Director Corporate Sales: Enrique Arthur MD Coxlauren tp. B2 1:20 Normal <1:10 [facility] Comment on above: Performed By: #### C MVG, LUPPRO, AT3A, PROCAC, PROSAC, CMVM, CMIS, TOXOG, TOXOM, HOCYS #### [address] [address] Director Corporate Sales: Tanvir Macias MD #### APTMUT, AF5MUT, AMTHFR, ACOXA9, APARVP, ACOXAB #### [facility] [address] [place], [place] [id number] Director Corporate Sales: MD Tatum Santoyo B3 1:10 Normal <1:10 [facility] Comment on above: Performed By: #### C MVG, LUPPRO, AT3A, PROCAC, PROSAC, CMVM, CMIS, TOXOG, TOXOM, HOCYS #### [address] [address] Director Corporate Sales: Tanvir Macias MD #### APTMUT, AF5MUT, AMTHFR, ACOXA9, APARVP, ACOXAB #### [facility] [address] [place], [place] [id number] Director Corporate Sales: MD Tatum Santoyo B4 1:320 Abnormal <1:10 [facility] Comment on above: Performed By: #### C MVG, LUPPRO, AT3A, PROCAC, PROSAC, CMVM, CMIS, TOXOG, TOXOM, HOCYS #### [address] [address] Director Corporate Sales: Tanvir Macias MD #### APTMUT, AF5MUT, AMTHFR, ACOXA9, APARVP, ACOXAB #### [facility] [address] [place], [place] [id number] Director Corporate Sales: MD Tatum Santoyo B5 <1:10 Normal <1:10 [facility] Comment on above: Performed By: #### C MVG, LUPPRO, AT3A, PROCAC, PROSAC, CMVM, CMIS, TOXOG, TOXOM, HOCYS #### [address] [id number] Director Corporate Sales: Tanvir Macias MD #### APTMUT, AF5MUT, AMTHFR, ACOXA9, APARVP, ACOXAB #### [address] [address] Director Corporate Sales: Enrique Arthur MD [place]ie tp. B6 <1:10 Normal <1:10 [facility] Comment on above: Result Comment: (NOT E) INTERPRETIVE INFORMATION: Cox[place]ackie B Virus Single positive antibody titers of greater than or equal to 1:80 may indicate past or current infection. Sero- conversion or an increase in titers between acute and convalescent sera of at least fourfold is considered strong evidence of current or recent infection. Performed By: [facility] [address] [place] [address] Home Care Provider: Nadeem Mcarthur MD, PhD CLIA Number: [id number] Performed By: #### C MVG, LUPPRO, AT3A, PROCAC, PROSAC, CMVM, CMIS, TOXOG, TOXOM, HOCYS #### [place] [address] Director Corporate Sales: Tanvir Macias MD #### APTMUT, AF5MUT, AMTHFR, ACOXA9, APARVP, ACOXAB #### [place] [address] Director Corporate Sales: Enrique Arthur MD Factor V Mutationon 10-22-19 24 F 5 SPECIMEN Whole Blood Normal [facility] Comment on above: Performed By: #### C MVG, LUPPRO, AT3A, PROCAC, PROSAC, CMVM, CMIS, TOXOG, TOXOM, HOCYS #### [address] [id number] Director Corporate Sales: Tanvir Macias MD #### APTMUT, AF5MUT, AMTHFR, ACOXA9, APARVP, ACOXAB #### [facility] [address] [place] [address] Director Corporate Sales: Enrique Arthur MD FACTOR 5 MUTATION Negative Normal [facility] Comment on above: Result Comment: (NOT E) Indication for testing: Assess genetic risk for thrombosis. NEGATIVE: The factor V Leiden variant, c.1601G>A; p.Vzi110Hoh, was not detected. This does not exclude [...] function in the F5 gene variant c.1601G>A (p.Jot020Sej). Legacy nomenclature: [id number] (1691G>A) CLINICAL SENSITIVITY: 20-50 percent of individuals with an isolated VTE have the FVL variant. METHODOLOGY: Polymerase chain reaction and fluorescence monitoring. ANALYTICAL SENSITIVITY AND SPECIFICITY: 99 percent. LIMITATIONS: Diagnostic errors can occur due to rare sequence variations. F5 gene mutations, other than p.Hxm372Cuo, will not be detected. This test was developed and its performance characteristics determined by [facility]. It has not been cleared or approved by the [place] Food and Drug Administration. This test was performed in a CLIA certified laboratory and is intended for clinical purposes. Counseling and informed consent are recommended for genetic testing. Consent forms are available online. Performed By: [facility] [address] [place] [address] Home Care Provider: Nadeem Mcarthur MD, PhD CLIA Number: [id number] Performed By: #### C MVG, LUPPRO, AT3A, PROCAC, PROSAC, CMVM, CMIS, TOXOG, TOXOM, HOCYS #### [address] [address] Director Corporate Sales: Tanvir Macias MD #### APTMUT, AF5MUT, AMTHFR, ACOXA9, APARVP, ACOXAB #### [address] [address] Director Corporate Sales: Enrique Arthur MD [place] A9 Titeron 024 [place] A9 Titer <1:8 Normal <1:8 [facility] Comment on above: Result Comment: (NOT E) INTERPRETIVE INFORMATION: Coxsackie A Serotype 9 Titer Single positive antibody titers of greater than 1:32 may indicate past or current infection. Seroconversion or an increase in titers between acute and convalescent sera of at least fourfold is considered strong evidence of current or recent infection. Performed By: [facility] [address] [place], [place] [id number] Home Care Provider: Nadeem Mcarthur MD, PhD CLIA Number: [id number] Performed By: #### C MVG, LUPPRO, AT3A, PROCAC, PROSAC, CMVM, CMIS, TOXOG, TOXOM, HOCYS #### [address] [address] Director Corporate Sales: Tanvir Macias MD #### APTMUT, AF5MUT, AMTHFR, ACOXA9, APARVP, ACOXAB #### [facility] [address] [place] [address] Director Corporate Sales: Enrique Arthur MD MTHFR Gene Mutationon 2023 MTHFR 1286 A>C Mut Negative Normal [facility] Comment on above: Performed By: #### C MVG, LUPPRO, AT3A, PROCAC, PROSAC, CMVM, CMIS, TOXOG, TOXOM, HOCYS #### [facility] [address] [place] [id number] Director Corporate Sales: Tanvir Macias MD #### APTMUT, AF5MUT, AMTHFR, ACOXA9, APARVP, ACOXAB #### [facility] [address] [place] [address] Director Corporate Sales: Enrique Arthur MD MTHFR 655C>T Mut Heterozygous Normal [facility] Comment on above: Performed By: #### C MVG, LUPPRO, AT3A, PROCAC, PROSAC, CMVM, CMIS, TOXOG, TOXOM, HOCYS #### [address] [phone] Director Corporate Sales: Tanvir Macias MD #### APTMUT, AF5MUT, AMTHFR, ACOXA9, APARVP, ACOXAB #### [facility] [address] [place] [address] Director Corporate Sales: Enrique Arthur MD MTHFR Interpretation See Note Normal [facility] Comment on above: Result Comment: (NOT E) Indication for testing: Determine genetic contribution to hyperhomocysteinemia. Heterozygous MTHFR c.665C>T: One copy of the MTHFR variant c.665C>T (previously designated C677T) was detected; the c.1286A>C (previously designated S8132S) variant was not identified. The common variant [...] has an effect on cardiovascular disease. The [employer] Practice Guidelines indicate [...] a contributing factor to hyperhomocysteinemia. Variants Tested: c.665C>T(p.Exk462Vmr) and c.1286A>C(p.Rgm964Jvx). (legacy names C677T and [id number], respectively). Clinical Sensitivity: Undefined; hyperhomocysteinemia is caused [...] developed and its performance characteristics determined by [facility]. It has not been cleared or approved by the [place] Food and Drug Administration. This test was performed in a CLIA certified laboratory and is intended for clinical purposes. Counseling and informed consent are recommended for genetic testing. Consent forms are available online. Performed By: [facility] [address] [place] [address] Home Care Provider: Nadeem Mcarthur MD, PhD CLIA Number: [id number] Performed By: #### C MVG, LUPPRO, AT3A, PROCAC, PROSAC, CMVM, CMIS, TOXOG, TOXOM, HOCYS #### [facility] [address] [place] [address] Director Corporate Sales: Tanvir Macias MD #### APTMUT, AF5MUT, AMTHFR, ACOXA9, APARVP, ACOXAB #### [facility] [address] [place] [address] Director Corporate Sales: Enrique Arthur MD MTHFR SPECIMEN Whole Blood Normal [facility] Comment on above: Performed By: #### C MVG, LUPPRO, AT3A, PROCAC, PROSAC, CMVM, CMIS, TOXOG, TOXOM, HOCYS #### [address] [address] Director Corporate Sales: Tanvir Macias MD #### APTMUT, AF5MUT, AMTHFR, ACOXA9, APARVP, ACOXAB #### [facility] [address] [place] [address] Director Corporate Sales: Enrique Arthur MD PT Mutation [id number] 10-21-19 24 PT [id number] VARIANT Negative Normal [facility] Comment on above: Result Comment: (NOT E) Indication for testing: Assess genetic risk for thrombosis. NEGATIVE: The Factor II, prothrombin H77052M mutation, was not detected. Other causes of [...] Quintana, Ph.D. BACKGROUND INFORMATION: Prothrombin (F2) c.*97G>A (V95377P) Pathogenic Variant CHARACTERISTICS: The Factor II, c.*97G>A (N10745K) pathogenic variant is a common genetic risk [...] CAUSE: Homozygosity or heterozygosity for F2 c.*97G>A (A38161J). PATHOGENIC VARIANT TESTED: F2 c.*97G>A (J14492O). CLINICAL SENSITIVITY FOR VENOUS THROMBOSIS: Approximately 10 percent. METHODOLOGY: Polymerase chain reaction and fluorescence monitoring. ANALYTICAL SENSITIVITY AND SPECIFICITY: 99 percent. LIMITATIONS: Diagnostic errors can occur due to rare sequence variations. F2 gene variants, other than c.*97G>A (J23620L), will not be detected. This test was developed and its performance characteristics determined by [facility]. It has not been cleared or approved by the US Food and Drug Administration. This test was performed in a CLIA certified laboratory and is intended for clinical purposes. Counseling and informed consent are recommended for genetic testing. Consent forms are available online. Performed By: [facility] [address] [place] [address] Home Care Provider: Nadeem Mcarthur MD, PhD [place] Number: [id number] Performed By: #### C MVG, LUPPRO, AT3A, PROCAC, PROSAC, CMVM, CMIS, TOXOG, TOXOM, HOCYS #### [address] [address] Director Corporate Sales: Tanvir Macias MD #### APTMUT, AF5MUT, AMTHFR, ACOXA9, APARVP, ACOXAB #### [facility] [address] [place] [address] Director Corporate Sales: Enrique Arthur MD PT PCR SPECIMEN Whole Blood Normal [facility] Comment on above: Performed By: #### C MVG, LUPPRO, AT3A, PROCAC, PROSAC, CMVM, CMIS, TOXOG, TOXOM, HOCYS #### [address] [address] Director Corporate Sales: Tanvir Macias MD #### APTMUT, AF5MUT, AMTHFR, ACOXA9, APARVP, ACOXAB #### [facility] [address] [place] [address] Director Corporate Sales: Enrique Arthur MD Parvovirus B19 Panelon 10-21 Parvovirus IgG B19 1.80 IV High <=0.90 [facility] Comment on above: Result Comment: [...] PROSAC, CMVM, CMIS, TOXOG, TOXOM, HOCYS #### [address] [address] Director Corporate Sales: Tanvir Macias MD #### APTMUT, AF5MUT, AMTHFR, ACOXA9, APARVP, ACOXAB #### [facility] [address] [place] [address] Director Corporate Sales: Enrique Arthur MD Parvovirus IgM B19 0.12 IV Normal <=0.90 [facility] Comment on above: Result Comment: (NOT E) INTERPRETIVE INFORMATION: Parvovirus B19 Antibody, IgM EFFECTIVE 07/04/2023 REFERENCE INTERVAL CHANGE Due to reagent kit extension work director recall, an alternate kit has been validated and implemented by [facility]. The following Reference Interval applies to this [...] levels of specific IgM antibodies. Performed By: [facility] [address] [place] [address] Home Care Provider: Nadeem Mcarthur MD, PhD CLIA Number: [id number] Performed By: #### C MVG, LUPPRO, AT3A, PROCAC, PROSAC, CMVM, CMIS, TOXOG, TOXOM, HOCYS #### [facility] [address] [place] [address] Director Corporate Sales: Tanvir Macias MD #### APTMUT, AF5MUT, AMTHFR, ACOXA9, APARVP, ACOXAB #### [address] [address] Director Corporate Sales: Enrique Arthru MD Antithrombin III Becka 10-18 Antithrombin III Act 106 % Normal 83-122 [facility] Comment on above: Result Comment: Patients receiving Hirudin may have a falsely decreased Antitrombin III Activity. Performed By: #### C MVG, LUPPRO, AT3A, PROCAC, PROSAC, CMVM, CMIS, TOXOG, TOXOM, HOCYS #### [facility] [address] [place] [address] [phone] Director Corporate Sales: Tanvir Macias MD #### APTMUT, AF5MUT, AMTHFR, ACOXA9, APARVP, ACOXAB #### [facility] [address] [place] [address] Director Corporate Sales: Enrique Arthur MD Lupus Anticoagulanton 2023 Anticardiolipin IgA 2.4 APL Normal 0.0-14.0 [facility] Comment on above: Result Comment: Reference Range: <14.0 Negative 14.0-20.0 Equivocal >20.0 Positive When results are Equivocal, it is recommended to retest after 4-6 weeks. Performed By: #### C MVG, LUPPRO, AT3A, PROCAC, PROSAC, CMVM, CMIS, TOXOG, TOXOM, HOCYS #### [address] [phone] Director Corporate Sales: Tanvir Macias MD #### APTMUT, AF5MUT, AMTHFR, ACOXA9, APARVP, ACOXAB #### [facility] [address] [place] [address] Director Corporate Sales: Enrique Arthur MD Anticardiolipin IgG 2.8 GPL Normal 0.0-10.0 [facility] Comment on above: Result Comment: Reference Range: <10.0 Negative 10.0-40.0 Equivocal >40.0 Positive Performed By: #### C MVG, LUPPRO, AT3A, PROCAC, PROSAC, CMVM, CMIS, TOXOG, TOXOM, HOCYS #### [facility] [address] [place] [address] [phone] Director Corporate Sales: Tanvir Macias MD #### APTMUT, AF5MUT, AMTHFR, ACOXA9, APARVP, ACOXAB #### [facility] [address] [place] [address] Director Corporate Sales: Enrique Arthur MD Anticardiolipin IgM <0.8 Normal 0.0-10.0 [facility] Comment on above: Result Comment: Reference Range: <10.0 Negative 10.0-40.0 Equivocal >40.0 Positive Performed By: #### C MVG, LUPPRO, AT3A, PROCAC, PROSAC, CMVM, CMIS, TOXOG, TOXOM, HOCYS #### [address] [phone] Director Corporate Sales: Tanvir Macias MD #### APTMUT, AF5MUT, AMTHFR, ACOXA9, APARVP, ACOXAB #### [facility] [address] [place], [place] [phone] Director Corporate Sales: Enrique Arthur MD Dilute Austin Viper Negative Normal [facility] Comment on above: Performed By: #### C MVG, LUPPRO, AT3A, PROCAC, PROSAC, CMVM, CMIS, TOXOG, TOXOM, HOCYS #### [address] [address] Director Corporate Sales: Tanvir Macias MD #### APTMUT, AF5MUT, AMTHFR, ACOXA9, APARVP, ACOXAB #### [facility] [address] [place], [place] [phone] Director Corporate Sales: Enrique Arthur MD Miscellaneouson 10-18-2023 Send Out Report [facility] [id number] Normal [facility] Comment on above: Result Comment: UNIT Y Performed By: #### C MVG, LUPPRO, AT3A, PROCAC, PROSAC, CMVM, CMIS, TOXOG, TOXOM, HOCYS #### [address] [address] Director Corporate Sales: Tanvir Macias MD #### APTMUT, AF5MUT, AMTHFR, ACOXA9, APARVP, ACOXAB #### [facility] [address] [place] [address] Director Corporate Sales: Enrique Arthur MD Protein C Activityon 024 Protein C Activity 91 % Normal >80 [facility] Comment on above: Result Comment: Patients [...] PROSAC, CMVM, CMIS, TOXOG, TOXOM, HOCYS #### [facility] [address] [place] [address] Director Corporate Sales: Tanvir Macias MD #### APTMUT, AF5MUT, AMTHFR, ACOXA9, APARVP, ACOXAB #### [facility] [address] [place] [address] Director Corporate Sales: Enrique Arthur MD Protein S Activityon 024 Protein S Activity 79 % Normal 59-130 [facility] Comment on above: Result Comment: Patients [...] PROSAC, CMVM, CMIS, TOXOG, TOXOM, HOCYS #### [facility] [address] [place] [address] Director Corporate Sales: Tanvir Macias MD #### APTMUT, AF5MUT, AMTHFR, ACOXA9, APARVP, ACOXAB #### [facility] [address] [place] [address] Director Corporate Sales: Enrique Arthur MD Toxoplasma Ab,IgGon 10-18-19 24 Toxoplasma Ab,IgG 1.2 IU/mL Normal [facility] Comment on above: Result Comment: REFERENCE [...] PROSAC, CMVM, CMIS, TOXOG, TOXOM, HOCYS #### [facility] [address] [place] [address] Director Corporate Sales: Tanvir Macias MD #### APTMUT, AF5MUT, AMTHFR, ACOXA9, APARVP, ACOXAB #### [facility] [address] [place], [place] [phone] Director Corporate Sales: Enrique Arthur MD Toxoplasma Ab,IgMon 10-18-19 24 Toxoplasma Ab,IgM 0.56 Index Normal [facility] Comment on above: Result Comment: REFERENCE RANGE: <0.90 NON-REACTIVE 0.90 TO 0.99 INDETERMINANT >=1.00 REACTIVE Performed By: #### C MVG, LUPPRO, AT3A, PROCAC, PROSAC, CMVM, CMIS, TOXOG, TOXOM, HOCYS #### [facility] [address] [place] [address] Director Corporate Sales: Tanvir Macias MD #### APTMUT, AF5MUT, AMTHFR, ACOXA9, APARVP, ACOXAB #### [facility] [address] [place] [address] Director Corporate Sales: Enrique Arthur MD CMV Ab,IgGon 10-17-2023 CMV Ab,IgG 523.0 High <0.5 [facility] Comment on above: Result Comment: Reference [...] PROSAC, CMVM, CMIS, TOXOG, TOXOM, HOCYS #### [facility] [address] [place] [phone] Director Corporate Sales: Tanvir Macias MD #### APTMUT, AF5MUT, AMTHFR, ACOXA9, APARVP, ACOXAB #### [facility] [address] [place] [address] Director Corporate Sales: Enrique Arthur MD CMV Ab,IgMon 10-17-2023 CMV Ab,IgM 0.2 Normal <0.7 [facility] Comment on above: Result Comment: Reference [...] PROSAC, CMVM, CMIS, TOXOG, TOXOM, HOCYS #### [facility] [address] [place] [address] Director Corporate Sales: Tanvir Macias MD #### APTMUT, AF5MUT, AMTHFR, ACOXA9, APARVP, ACOXAB #### [facility] [address] [place] [address] Director Corporate Sales: Enrique Arthur MD Homocysteineon 10-17-2023 Homocysteine 5.7 umol/L Normal <15.0 [facility] Comment on above: Performed By: #### C MVG, LUPPRO, AT3A, PROCAC, PROSAC, CMVM, CMIS, TOXOG, TOXOM, HOCYS #### [facility] [address] [place] [address] Director Corporate Sales: Tanvir Macias MD #### APTMUT, AF5MUT, AMTHFR, ACOXA9, APARVP, ACOXAB #### [facility] [address] [place] [address] Director Corporate Sales: Enrique Arthur MD Lupus Anticoagulanton 2023 aPTT Coag (Bld) [Time] 27.6 s Normal 23.0-36.5 [facility] Comment on above: Result Comment: IV Heparin Therapy Range: 66.0-92.0 sec Performed By: #### C MVG, LUPPRO, AT3A, PROCAC, PROSAC, CMVM, CMIS, TOXOG, TOXOM, HOCYS #### [address] [address] Director Corporate Sales: Tanvir Macias MD #### APTMUT, AF5MUT, AMTHFR, ACOXA9, APARVP, ACOXAB #### [facility] [address] [place] [address] Director Corporate Sales: Enrique Arthur MD INR Coag (PPP) [Relative time] 1.0 {INR} Normal [facility] Comment on above: Result Comment: Therapeutic Range: Moderate Anticoagulant Intensity: INR = 2.0-3.0 High Anticoagulant Intensity: INR = 2.5-3.5 Performed By: #### C MVG, LUPPRO, AT3A, PROCAC, PROSAC, CMVM, CMIS, TOXOG, TOXOM, HOCYS #### [facility] [place], [place] [phone] Director Corporate Sales: Tanvir Macias MD #### APTMUT, AF5MUT, AMTHFR, ACOXA9, APARVP, ACOXAB #### [facility] [address] [place], [place] [phone] Director Corporate Sales: Enrique Arthur MD PT Coag (PPP) [Time] 13.5 s Normal 11.7-14.9 [facility] Comment on above: Performed By: #### C MVG, LUPPRO, AT3A, PROCAC, PROSAC, CMVM, CMIS, TOXOG, TOXOM, HOCYS #### [facility] [address] [place] [address] Director Corporate Sales: Tanvir Macias MD #### APTMUT, AF5MUT, AMTHFR, ACOXA9, APARVP, ACOXAB #### [facility] [address] [place] [address] Director Corporate Sales: Enrique Arthur MD Basic Metabolic Panelon Glucose [Mass/Vol] 97 mg/dL [facility] CBC without diffOrdered By: Mayra Victoria on 07-26-2023 Hematocrit (Bld) [Volume fraction] 34.8 % [facility] Hemoglobin (Bld) [Mass/Vol] 11.3 g/dL [facility] Platelets (Bld) [#/Vol] 292 10*3/uL [facility] Rbc Mcv (Fl) By Automated Count 83.5 [facility] HIV 1&2 AB/AG Screen (P24 AG )on 07-26-2023 HIV 1&2 AB/AG Non-Reactive [facility] Hemoglobin A1con 07-26-2023 HbA1c (Bld) [Mass fraction] 5.0 % 4.0 - 6.0 % [facility] Hepatitis B surface antigeno n 07-26-2023 Hepatitis B Surface Antigen Negative [facility] No Panel InformationOrdered By: Mayra Melgars on 07-26-2023 [facility] Rubella IGG immune statuson 07-26-2023 Rubella immune IgG 5.26 [facility] Syphilis Total(Unknown Syphi lis Status)on 07-26-2023 Syphilis Non-Reactive [facility] TSHon 07-26-2023 TSH Qn 1.99 m[IU]/L [facility] Type and screenon 07-26-2023 Abo/Rh(D) Positive [facility] CBC AUTO DIFFon 07-28-2022 BASO # 0.0 103/ul Normal 0.0-0.1 [facility] Comment on above: Performed By: #### H CVPCRR #### [facility] [address] [place] [address] Dr. Carleen Underwood Basophils/100 WBC (Bld) 0.3 % Normal 0.2-2.0 [facility] Comment on above: Performed By: #### H CVPCRR #### [facility] [address] [place] [address] Dr. Carleen Underwood EO # 0.2 103/ul Normal 0.0-0.[address] [facility] Comment on above: Performed By: #### H CVPCRR #### [facility] [address] [place] [address] Dr. Carleen Underwood Eosinophils/100 WBC (Bld) 1.5 % Normal 0.9-7.0 [facility] Comment on above: Performed By: #### H CVPCRR #### [facility] [address] [address] [address] Carleen Underwood Erythrocyte distribution width (RBC) [Ratio] 14.9 % Normal 11.0-15.[address] [facility] Comment on above: Performed By: #### H CVPCRR #### [facility] [address] [place] [address] Dr. Carleen Underwood Hematocrit (Bld) [Volume fraction] 30.7 % Critically low 36.0-48.0 [facility] Comment on above: Performed By: #### H CVPCRR #### [facility] [address] [place] [address] Dr. Carleen Underwood Hemoglobin (Bld) [Mass/Vol] 9.4 g/dL Critically low 12.0-16.0 [facility] Comment on above: Performed By: #### H CVPCRR #### [facility] [address] [place] [address] Dr. Carleen Underwood IG # 0.07 10e3/ul Critically high 0.00-0.03 [facility] Comment on above: Performed By: #### H CVPCRR #### [facility] [address] [place] [address] Dr. Carleen Underwood IG % 0.6 % Critically high 0.0-0.5 [facility] Comment on above: Performed By: #### H CVPCRR #### [facility] [address] [place] [address] Dr. Carleen Underwood LYMPH # 2.7 103/ul Normal 1.2-3.8 [facility] Comment on above: Performed By: #### H CVPCRR #### [facility] [address] [place] [address] Dr. Carleen Underwood Lymphocytes/100 WBC (Bld) 24.1 % Normal 20.5-60.0 [facility] Comment on above: Performed By: #### H CVPCRR #### [facility] [address] [place] [address] Dr. Carleen Underwood MANUAL DIFF REQ NO Normal [facility] Comment on above: Performed By: #### H CVPCRR #### [facility] [address] [place] [address] Dr. Carleen Underwood MCH (RBC) [Entitic mass] 23.3 pg Critically low 26.7-34.[address] [facility] Comment on above: Performed By: #### H CVPCRR #### [facility] [address] [place] [address] Dr. Carleen Underwood MCHC (RBC) [Mass/Vol] 30.6 g/dL Normal 29.9-35.[address] [facility] Comment on above: Performed By: #### H CVPCRR #### [facility] [address] [place] [address] Dr. Carleen Underwood MCV (RBC) [Entitic vol] 76.2 fL Critically low 81.0-99.0 [facility] Comment on above: Performed By: #### H CVPCRR #### [facility] [address] [place] [address] Dr. Carleen Underwood MONO # 0.7 103/ul Normal 0.3-0.8 [facility] Comment on above: Performed By: #### H CVPCRR #### [facility] [address] [place] [address] Dr. Carleen Underwood Monocytes/100 WBC (Bld) 5.8 % Normal 1.7-12.0 [facility] Comment on above: Performed By: #### H CVPCRR #### [facility] [address] [place] [address] Dr. Carleen Underwood NEUT # 7.6 103/ul Critically high 1.4-6.5 [facility] Comment on above: Performed By: #### H CVPCRR #### [facility] [address] [place] [address] Dr. Carleen Underwood Neutrophils/100 WBC (Bld) 67.7 % Normal 43.0-75.0 [facility] Comment on above: Performed By: #### H CVPCRR #### [facility] [address] [place] [address] Dr. Carleen Underwood Platelet mean volume (Bld) [Entitic vol] 11.1 fL Normal 9.5-13.5 [facility] Comment on above: Performed By: #### H CVPCRR #### [facility] [address] [place] [address] Dr. Carleen Underwood PLT 242 103/ul Normal 150-[address] [facility] Comment on above: Performed By: #### H CVPCRR #### [facility] [address] [place] [address] Dr. Carleen Underwood RBC 4.03 106/ul Critically low 4.20-5.[address] [facility] Comment on above: Performed By: #### H CVPCRR #### [facility] [address] [place] [address] Dr. Carleen Underwood WBC 11.2 103/ul Critically high 4.0-11.0 [facility] Comment on above: Performed By: #### H CVPCRR #### [facility] [address] [place] [address] Dr. Carleen Underwood CBC AUTO DIFFon 07-27-2022 BASO # 0.0 103/ul Normal 0.0-0.1 [facility] Comment on above: Performed By: #### G LU1HR #### [facility] [address] [place] [address] Dr. Carleen Underwood Basophils/100 WBC (Bld) 0.5 % Normal 0.2-2.0 [facility] Comment on above: Performed By: #### G LU1HR #### [facility] [address] [place] [address] Dr. Carleen Underwood EO # 0.1 103/ul Normal 0.0-0.7 [facility] Comment on above: Performed By: #### G LU1HR #### [facility] [address] [place] [address] Dr. Carleen Underwood Eosinophils/100 WBC (Bld) 1.2 % Normal 0.9-7.0 [facility] Comment on above: Performed By: #### G LU1HR #### [facility] [address] [place] [address] Dr. Carleen Underwood Erythrocyte distribution width (RBC) [Ratio] 14.9 % Normal 11.0-15.0 [facility] Comment on above: Performed By: #### G LU1HR #### [facility] [address] [place] [address] Dr. Carleen Underwood Hematocrit (Bld) [Volume fraction] 29.6 % Critically low 36.0-48.0 [facility] Comment on above: Performed By: #### G LU1HR #### [facility] [address] [place] [address] Dr. Carleen Underwood Hemoglobin (Bld) [Mass/Vol] 9.3 g/dL Critically low 12.0-16.0 [facility] Comment on above: Performed By: #### G LU1HR #### [facility] [address] [place] [address] Dr. Carleen Underwood IG # 0.04 10e3/ul Critically high 0.00-0.03 [facility] Comment on above: Performed By: #### G LU1HR #### [facility] [address] [place] [address] Dr. Carleen Underwood IG % 0.5 % Normal 0.0-0.5 [facility] Comment on above: Performed By: #### G LU1HR #### [facility] [address] [place] [address] Dr. Carleen Underwood LYMPH # 2.1 103/ul Normal 1.2-3.8 [facility] Comment on above: Performed By: #### G LU1HR #### [facility] [address] [place] [address] Dr. Carleen Underwood Lymphocytes/100 WBC (Bld) 25.5 % Normal 20.5-60.0 [facility] Comment on above: Performed By: #### G LU1HR #### [facility] [address] [place] [address] Dr. Carleen Underwood MANUAL DIFF REQ NO Normal [facility] Comment on above: Performed By: #### G LU1HR #### [facility] [address] [place] [address] Dr. Carleen Underwood MCH (RBC) [Entitic mass] 23.2 pg Critically low 26.7-34.0 [facility] Comment on above: Performed By: #### G LU1HR #### [facility] [address] [place] [address] Dr. Carleen Underwood MCHC (RBC) [Mass/Vol] 31.4 g/dL Normal 29.9-35.2 [facility] Comment on above: Performed By: #### G LU1HR #### [facility] [address] [place] [address] Dr. Carleen Underwood MCV (RBC) [Entitic vol] 73.8 fL Critically low 81.0-99.0 [facility] Comment on above: Performed By: #### G LU1HR #### [facility] [address] [place] [address] Dr. Carleen Underwood MONO # 0.5 103/ul Normal 0.3-0.8 [facility] Comment on above: Performed By: #### G LU1HR #### [facility] [address] [place] [address] Dr. Carleen Underwood Monocytes/100 WBC (Bld) 6.2 % Normal 1.7-12.[address] [facility] Comment on above: Performed By: #### G LU1HR #### [facility] [address] [place] [address] Dr. Carleen Underwood NEUT # 5.4 103/ul Normal 1.4-6.[address] [facility] Comment on above: Performed By: #### G LU1HR #### [facility] [address] [place] [address] Dr. Carleen Underwood Neutrophils/100 WBC (Bld) 66.1 % Normal 43.0-75.[address] [facility] Comment on above: Performed By: #### G LU1HR #### [facility] [address] [place] [address] Dr. Carleen Udnerwood Platelet mean volume (Bld) [Entitic vol] 11.3 fL Normal 9.5-13.[address] [facility] Comment on above: Performed By: #### G LU1HR #### [facility] [address] [place] [address] Dr. Carleen Underwood PLT 238 103/ul Normal 150-[address] [facility] Comment on above: Performed By: #### G LU1HR #### [facility] [address] [place] [address] Dr. Carleen Underwood RBC 4.01 106/ul Critically low 4.20-5.40 [facility] Comment on above: Performed By: #### G LU1HR #### [facility] [address] [place] [address] Dr. Carleen Underwood WBC 8.2 103/ul Normal 4.0-11.[address] [facility] Comment on above: Performed By: #### G LU1HR #### [facility] [address] [place] [address] Dr. Carleen Underwood Covid-19 PCR ([facility])on SARS-CoV-2 (COVID-19) RNA HUY+probe Ql (Unsp spec) Not detected Normal NOT DETECTED [facility] Comment on above: Result Comment: When [...] for this test is supported by the [place] of Health and Human Service's declaration that [...] #### H CVPCRR #### [facility] [address] [place] [address] Dr. Carleen Underwood DRUG SCREEN RAPID (URINE)on 07-27-2022 AMP Negative Normal NEGATIVE [facility] Comment on above: Performed By: #### G TT3P #### [facility] [address] [place] [address] Dr. Carleen Underwood BAR Negative Normal NEGATIVE [facility] Comment on above: Performed By: #### G TT3P #### [facility] [address] [place] [address] Dr. Carleen Underwood BUP Negative Normal NEGATIVE [facility] Comment on above: Performed By: #### G TT3P #### [facility] [address] [place] [address] Dr. Carleen Underwood BZO Negative Normal NEGATIVE [facility] Comment on above: Performed By: #### G TT3P #### [facility] [address] [address] [address] Carleen Underwood EMIGDIO Negative Normal NEGATIVE [facility] Comment on above: Performed By: #### G TT3P #### [facility] [address] [address] [address] Carleen Underwood CUT-OFFS SEE BELOW Normal [facility] Comment on above: Result Comment: AMP [...] #### G TT3P #### [facility] [address] [place] [address] Dr. Carleen Underwood DRUG CUT HEADER DRUG CLASS TEST SYST EM CUT-OFF CONCENTRATIONS ARE FOLLOWS: Normal [facility] Comment on above: Performed By: #### G TT3P #### [facility] [address] [place] [address] Dr. Carleen Underwood mAMP Negative Normal NEGATIVE [facility] Comment on above: Performed By: #### G TT3P #### [facility] [address] [address] [address] Carleen Underwood MTD Negative Normal NEGATIVE [facility] Comment on above: Performed By: #### G TT3P #### [facility] [address] [place] [address] Dr. Carleen Underwood OPI Negative Normal NEGATIVE [facility] Comment on above: Performed By: #### G TT3P #### [facility] [address] [place] [address] Dr. Carleen Underwood OXY Negative Normal NEGATIVE [facility] Comment on above: Performed By: #### G TT3P #### [facility] [address] [address] [address] Carleen Underwood PCP Negative Normal NEGATIVE [facility] Comment on above: Performed By: #### G TT3P #### [facility] [address] [place] [address] Dr. Carleen Underwood PPX Negative Normal NEGATIVE [facility] Comment on above: Performed By: #### G TT3P #### [facility] [address] [address] [address] Carleen Underwood TCA Negative Normal NEGATIVE [facility] Comment on above: Performed By: #### G TT3P #### [facility] [address] [address] [address] Carleen Underwood THC Negative Normal NEGATIVE [facility] Comment on above: Performed By: #### G TT3P #### [facility] [address] [place] [address] Dr. Carleen Underwood TYPE AND SCREENon 07-27-2022 TYPE AND SCREEN Negative Normal [facility] Comment on above: Performed By: #### G TT3P #### [facility] [address] [place] [address] Dr. Carleen Underwood US PREG AMNIOTIC FLUID [...] 2022-07-12 16:24 Normal [address] [facility] US PREG BIOPHY W NON STRESSo [...] 2022-07-09 16:35 Normal [address] [facility] US PREG BIOPHY W NON STRESSo [...] 2022-07-06 17:[address] Normal [address] [facility] GROUP B STREP CULTUREon 06-26 S. agalactiae Ag Ql (Unsp spec) Culture Observations: NEGATIVE FOR GROUP B STREPTOCOCCUS. Normal [facility] Comment on above: Performed By: #### G TT3P #### [facility] [address] [place] [address] Dr. Carleen Underwood US PREG GROWTHon 07-05-2022 [...] Marroquin was notified of these findings by piercing machine operator at time of imaging. 3. Biparietal diameter is at 8th percentile. Electronically authenticated by: FOUZIA CALERO Date: 2022-07-05 16:58 Normal [facility] US PREG GROWTHon 06-11-2022 US [...] by: FOUZIA CALERO Date: 2022-06-11 16:22 Normal [facility] US PREG INCOMPLETE ANATOMYon 06-11-2022 [...] 2022-06-11 16:[address] Normal [address] [facility] US PREG INCOMPLETE ANATOMYon 05-14-2022 US [...] 2022-05-14 17:15 Normal [address] [facility] GTT 3 HR PREGon 04-24-2022 Glucose [Mass/Vol] 91 mg/dL Normal 74-106 [facility] Comment on above: Performed By: #### G TT3P #### [facility] [address] [address] [address] Carleen Underwood Glucose [Mass/Vol] 141 mg/dL Normal [facility] Comment on above: Performed By: #### G TT3P #### [facility] [address] [address] [address] Carleen Underwood Glucose [Mass/Vol] 103 mg/dL Normal [facility] Comment on above: Performed By: #### G TT3P #### [facility] [address] [address] [address] Carleen Underwood Glucose [Mass/Vol] 75 mg/dL Normal [facility] Comment on above: Performed By: #### G TT3P #### [facility] [address] [address] [address] Carleen Underwood US PREG INCOMPLETE ANATOMYon [...] cervical os Normal ventricular outflow tracts Normal [facility] PAP ACOG PANEL 2: 30 to 65on 04-20-2022 . . Normal [facility] Comment on above: Result Comment: Perf ormed at: WB Performed By: #### [id number] #### [facility] [address] [address] [address] Carleen Underwood Age Gdln ACOG Testing 30-65 Normal [facility] Comment on above: Performed By: #### [id number] #### [facility] [address] [address] [address] Carleen Underwood DIAGNOSIS: Comment Normal [facility] Comment on above: Result Comment: NEGA TIVE FOR INTRAEPITHELIAL LESION OR MALIGNANCY. Performed at: WB Performed By: #### [id number] #### [facility] [address] [place] [address] Dr. Carleen Underwood HPV Aptima Negative Normal Negative [facility] Comment on above: Result Comment: This nucleic acid amplification test detects fourteen high-risk HPV types (16,18,31,33,35,39,45,51,52,56,58,59,66,68) without differentiation. Performed at: =G Performed By: #### [id number] #### [facility] [address] [place] [address] Dr. Carleen Underwood Methodology: Comment Normal [facility] Comment on above: Result Comment: This liquid based ThinPrep(R) pap test was screened with the use of an image guided system. Performed at: WB Performed By: #### [id number] #### [facility] [address] [address] [address] Carleen Underwood Note: Comment Normal [facility] Comment on above: Result Comment: The Pap smear is a screening test designed to aid in the detection of premalignant and malignant conditions of the uterine cervix. It is not a diagnostic procedure and should not be used as the sole means of detecting cervical cancer. Both false-positive and false-negative reports do occur. . Performed at: WB Performed By: #### [id number] #### [facility] [address] [place] [address] Dr. Carleen Underwood Performed by: Comment Normal [facility] Comment on above: Result Comment: Carol Aguilar, Gel Coat Sprayer Performed at: WB Performed By: #### [id number] #### [facility] [address] [place] [address] Dr. Carleen Underwood Specimen adequacy: Comment Normal [facility] Comment on above: Result Comment: Sati sfactory for evaluation. No endocervical component is identified. Performed at: WB Performed By: #### [id number] #### [facility] [address] [place] [address] Dr. Carleen Underwood CHLAMYDIA/GONOCOCCUS HUY ( AB/URINE/PAPon 04-19-2022 Chlamydia trachomatis, HUY Negative Normal Negative [facility] Comment on above: Performed By: #### H CVPCRR #### [facility] [address] [place] [address] Dr. Carleen Underwood Neisseria gonorrhoeae, HUY Negative Normal Negative [facility] Comment on above: Performed By: #### H CVPCRR #### [facility] [address] [place] [address] Dr. Carleen Underwood VAGINITIS/VAGINOSIS DNA PROB True 04-19-2022 Priya species Negative Normal Negative [facility] Comment on above: Performed By: #### G LU1HR #### [facility] [address] [place] [address] Dr. Carleen Underwood Gardnerella vaginalis Negative Normal Negative [facility] Comment on above: Performed By: #### G LU1HR #### [facility] [address] [place] [address] Dr. Carleen Underwood Trichomonas vaginalis Negative Normal Negative [facility] Comment on above: Performed By: #### G LU1HR #### [facility] [address] [place] [address] Dr. Carleen Underwood GLUCOSE - 1HRon 04-17-2022 Glucose [Mass/Vol] 150 mg/dL Critically high 74-106 T [facility] Comment on above: Performed By: #### G LU1HR #### [facility] [address] [place] [address] Dr. Carleen Underwood HEMOGRAM AND PLATELon 2021 Hematocrit (Bld) [Volume fraction] 31.9 % Critically low 36.0-48.0 [facility] Comment on above: Performed By: #### H H #### [facility] [address] [place] [address] Dr. Carleen Underwood Hemoglobin (Bld) [Mass/Vol] 10.3 g/dL Critically low 12.0-16.0 [facility] Comment on above: Performed By: #### H H #### [facility] [address] [place] [address] Dr. Carleen Underwood MCH (RBC) [Entitic mass] 26.6 pg Critically low 26.7-34.0 [facility] Comment on above: Performed By: #### H H #### [facility] [address] [place] [address] Dr. Carleen Underwood MCHC (RBC) [Mass/Vol] 32.3 g/dL Normal 29.9-35.[address] [facility] Comment on above: Performed By: #### H H #### [facility] [address] [place] [address] Dr. Carleen Underwood MCV (RBC) [Entitic vol] 82.4 fL Normal 81.0-99.0 [facility] Comment on above: Performed By: #### H H #### [facility] [address] [place] [address] Dr. Carleen Underwood PLT 233 103/ul Normal 150-[address] [facility] Comment on above: Performed By: #### H H #### [facility] [address] [place] [address] Dr. Carleen Underwood RBC 3.87 106/ul Critically low 4.20-5.[address] [facility] Comment on above: Performed By: #### H H #### [facility] [address] [place] [address] Dr. Carleen Underwood WBC 8.5 103/ul Normal 4.0-11.[address] [facility] Comment on above: Performed By: #### H H #### [facility] [address] [address] [address] Carleen Underwood AFP MATERNAL FOR SPINA BIFID Aon 03-22-2022 AFP MoM 1.08 Normal [facility] Comment on above: Performed By: #### H CVPCRR #### [facility] [address] [address] [address] Carleen Underwood AFP Value 43.1 ng/mL Normal [facility] Comment on above: Performed By: #### H CVPCRR #### [facility] [address] [address] [address] Carleen Unedrwood AFP, Serum for Spina Bifida Report Normal [facility] Comment on above: Performed By: #### H CVPCRR #### [facility] [address] [address] [address] Carleen Underwood Comment Comment Normal [facility] Comment on above: Result Comment: Re Quick, Ph.D., [facility] Director . References: Available Upon Request. . Multiples Of Median Cutoffs For AFP Elevations [place] 2.5 Black 2.8 IDD 2.0 Twins 4.5 Abbreviation Definitions IDD - Insulin Dep Diabetes OSBR - Open Spina Bifida Risk . For further inquiries contact [facility] at [phone]. . This test was developed and its performance characteristics determined by [employer]. It has not been cleared or approved by the Food and Drug Administration. Performed By: #### H CVPCRR #### [facility] [address] [address] [address] Carleen Marie Age Collection Date 19.4 weeks Normal [facility] Comment on above: Performed By: #### H CVPCRR #### [facility] [address] [address] [address] Carleen Underwood Gestat, Age Based on LMP Normal [facility] Comment on above: Result Comment: Reca lculations are not recommended when gestational dating by LMP and ultrasound are within 10 days. Performed By: #### H CVPCRR #### [facility] [address] [address] [address] Carleen Underwood Insulin Dep Diabetes No Normal [facility] Comment on above: Performed By: #### H CVPCRR #### [facility] [address] [place] [address] Dr. Carleen Underwood Interpretation Comment Normal [facility] Comment on above: Result Comment: [...] Customer Services to discuss available options. The [place] recommends amniocentesis be offered to women age 35 and older. Performed By: #### H CVPCRR #### [facility] [address] [place] [address] Dr. Carleen Underwood [age] [facility] Comment on above: Performed By: #### H CVPCRR #### [facility] [address] [place] [address] Dr. Carleen Underwood Multiple Gestation No Normal [facility] Comment on above: Performed By: #### H CVPCRR #### [facility] [address] [place] [address] Dr. Carleen Underwood OSBR Risk 1 [place] [address] [facility] Comment on above: Performed By: #### H CVPCRR #### [facility] [address] [place] [address] Dr. Carleen Underwood PDF . Normal [facility] Comment on above: Performed By: #### H CVPCRR #### [facility] [address] [place] [address] Dr. Carleen Underwood Race Normal [facility] Comment on above: Performed By: #### H CVPCRR #### [facility] [address] [place] [address] Dr. Carleen Underwood Test Results: Negative [facility] Comment on above: Performed By: #### H CVPCRR #### [facility] [address] [address] [address] Carleen Underwood PREG ANATOMY SINGLEon US PREG ANATOMY SINGLE [...] by: FOUZIA CALERO Date: 2022-03-19 17:04 Normal [facility] GLUCOSE - 1HRon 02-14-2022 Glucose [Mass/Vol] 107 mg/dL Critically high 74-106 T [facility] Comment on above: Performed By: #### H CVPCRR #### [facility] [address] [id number] Carleen Underwood HEP B SURFACE ANTIGEN SCREEN on 01-13-2022 HBsAg Screen Negative Normal Negative [facility] Comment on above: Performed By: #### H BSANS #### [facility] [address] [place] [address] Dr. Carleen Underwood HEPATITIS C VIRUS AB W/ REFL EX QUANTon 01-13-2022 HCV AB <0.1 Normal 0.0-0.9 [facility] Comment on above: Performed By: #### H CVPCRR #### [facility] [address] [place] [address] Dr. Carleen Underwood Interpretation: Comment Normal [facility] Comment on above: Result Comment: Nega tive Not infected with HCV, unless recent infection is suspected or other evidence exists to indicate HCV infection. Performed By: #### H CVPCRR #### [facility] [address] [place] [address] Dr. Carleen Underwood HIV 1 AND 2 WITH REFLEXon HIV Screen 4th Generation wRfx Non-Reactive Normal Non Reactive [facility] Comment on above: Result Comment: HIV Negative HIV-1/HIV-2 antibodies and HIV-1 p24 antigen were NOT detected. There is no laboratory evidence of HIV infection. Performed By: #### G LU1HR #### [facility] [address] [place] [address] Dr. Carleen Underwood RPR QUANTon 01-13-2022 Rapid Plasma Reagin, Quant Non-Reactive Normal NonRea<1:1 [facility] Comment on above: Result Comment: Plea se Note: This test does not meet current guidelines for screening and diagnosis of syphilis. This test is intended for following treatment response in patients being treated for syphilis infection. To screen for syphilis infection, a reflex cascade that includes both RPR and a treponema-specific assay should be utilized, such as Treponema pallidum (Syphilis) Screening Door (555196) or Rapid Plasma Reagin (RPR) Test With Reflex to Quantitative RPR and Confirmatory Treponema pallidum Antibodies (108983). Performed By: #### H CVPCRR #### [facility] [address] [place] [address] Dr. Carleen Underwood RUBELLA AB IGGon 01-13-2022 Rubella Antibodies, IgG 4.86 index Normal Immune >0.99 [facility] Comment on above: Result Comment: Non- immune <0.90 Equivocal 0.90 - 0.99 Immune >0.99 Performed By: #### R UBIGG #### [facility] [address] [address] [address] Carleen Underwood CBC AUTO DIFFon 01-12-2022 BASO # 0.0 103/ul Normal 0.0-0.1 [facility] Comment on above: Performed By: #### C BC #### [facility] [address] [place] [address] Dr. Carleen Underwood Basophils/100 WBC (Bld) 0.4 % Normal 0.2-2.0 [facility] Comment on above: Performed By: #### C BC #### [facility] [address] [place] [address] Dr. Carleen Underwood EO # 0.1 103/ul Normal 0.0-0.7 [facility] Comment on above: Performed By: #### C BC #### [facility] [address] [address] [address] Carleen Underwood Eosinophils/100 WBC (Bld) 1.1 % Normal 0.9-7.0 [facility] Comment on above: Performed By: #### C BC #### [facility] [address] [place] [address] Dr. Carleen Underwood Erythrocyte distribution width (RBC) [Ratio] 14.5 % Normal 11.0-15.0 [facility] Comment on above: Performed By: #### C BC #### [facility] [address] [place] [address] Dr. Carleen Underwood Hematocrit (Bld) [Volume fraction] 35.8 % Critically low 36.0-48.0 [facility] Comment on above: Performed By: #### C BC #### [facility] [address] [place] [address] Dr. Carleen Underwood Hemoglobin (Bld) [Mass/Vol] 11.2 g/dL Critically low 12.0-16.0 [facility] Comment on above: Performed By: #### C BC #### [facility] [address] [place] [address] Dr. Carleen Underwood IG # 0.02 10e3/ul Normal 0.00-0.03 [facility] Comment on above: Performed By: #### C BC #### [facility] [address] [place] [address] Dr. Carleen Underwood IG % 0.4 % Normal 0.0-0.5 [facility] Comment on above: Performed By: #### C BC #### [facility] [address] [place] [address] Dr. Carleen Underwood LYMPH # 1.6 103/ul Normal 1.2-3.8 [facility] Comment on above: Performed By: #### C BC #### [facility] [address] [place] [address] Dr. Carleen Underwood Lymphocytes/100 WBC (Bld) 27.9 % Normal 20.5-60.0 [facility] Comment on above: Performed By: #### C BC #### [facility] [address] [place] [address] Dr. Carleen Underwood MANUAL DIFF REQ NO Normal [facility] Comment on above: Performed By: #### C BC #### [facility] [address] [place] [address] Dr. Carleen Underwood MCH (RBC) [Entitic mass] 26.1 pg Critically low 26.7-34.0 [facility] Comment on above: Performed By: #### C BC #### [facility] [address] [place] [address] Dr. Carleen Underwood MCHC (RBC) [Mass/Vol] 31.3 g/dL Normal 29.9-35.[address] [facility] Comment on above: Performed By: #### C BC #### [facility] [address] [place] [address] Dr. Carleen Underwood MCV (RBC) [Entitic vol] 83.4 fL Normal 81.0-99.0 [facility] Comment on above: Performed By: #### C BC #### [facility] [address] [place] [address] Dr. Carleen Underwood MONO # 0.4 103/ul Normal 0.3-0.8 [facility] Comment on above: Performed By: #### C BC #### [facility] [address] [place] [address] Dr. Carleen Underwood Monocytes/100 WBC (Bld) 6.2 % Normal 1.7-12.0 [facility] Comment on above: Performed By: #### C BC #### [facility] [address] [place] [address] Dr. Carleen Underwood NEUT # 3.7 103/ul Normal 1.4-6.5 [facility] Comment on above: Performed By: #### C BC #### [facility] [address] [place] [address] Dr. Carleen Underwood Neutrophils/100 WBC (Bld) 64.0 % Normal 43.0-75.0 [facility] Comment on above: Performed By: #### C BC #### [facility] [address] [place] [address] Dr. Carleen Underwood Platelet mean volume (Bld) [Entitic vol] 10.3 fL Normal 9.5-13.5 [facility] Comment on above: Performed By: #### C BC #### [facility] [address] [place] [address] Dr. Carleen Underwood PLT 229 103/ul Normal 150-[address] [facility] Comment on above: Performed By: #### C BC #### [facility] [address] [place] [address] Dr. Carleen Underwood RBC 4.29 106/ul Normal 4.20-5.[address] [facility] Comment on above: Performed By: #### C BC #### [facility] [address] [place] [address] Dr. Carleen Underwood WBC 5.7 103/ul Normal 4.0-11.0 [facility] Comment on above: Performed By: #### C BC #### [facility] [address] [place] [address] Dr. Carleen Underwood CULTURE URINEon 01-12-2022 CULTURE URINE Culture Observations : LIGHT GROWTH OF MIXED GENITAL YULI. NO POTENTIAL PATHOGENS SEEN. Normal [facility] Comment on above: Performed By: #### U RCX #### [facility] [address] [address] [address] Carleen Underwood GLYCOHEMOGLOBIN A1Con 2021 ADA RECOMMENDATION SEE BELOW Normal [facility] Comment on above: Result Comment: ADA RECOMMENDED LIMIT 4.0 - 6.0 ADA THERAPEUTIC TARGET < 7.0 ACTION SUGGESTED > 7.0 Performed By: #### G LU1HR #### [facility] [address] [address] [address] Carleen Underwood Glucose [Mass/Vol] 100 mg/dL Normal [facility] Comment on above: Performed By: #### G LU1HR #### [facility] [address] [address] [address] Carleen Underwood HbA1c (Bld) [Mass fraction] 5.1 % Normal 4.5-6.2 [facility] Comment on above: Performed By: #### G LU1HR #### [facility] [address] [address] [address] Carleen Underwood EMILY BOX TEST PT SEND OUTo n 01-12-2022 SENT TO REF LAB 01/12/2022 Normal [address] [facility] Comment on above: Performed By: #### H CVPCRR #### [facility] [address] [address] [address] Carleen Underwood TYPE AND SCREENon 01-12-2022 TYPE AND SCREEN Negative Normal [facility] Comment on above: Performed By: #### T NS #### [facility] [address] [address] [address] Carleen Underwood US PREG TVon 12-29-2021 [...] by: BRANDI ANN Date: 2021-12-29 16:07 Normal [facility] Coding Summary.on 02-12-2020 Coding Summary. 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 Physician Orderon 02-07-2020 Physician Order [id number] Normal [facility] Vital Signs Date Time Vital Sign Value Performing Clinician Facility 07-15-2023 13:00-0500 Body height 170.81 cm Chery Aranda Other [facility] Other 07-15-2023 13:00-0500 Body mass index (BMI) [Ratio] 39.95 kg/m2 Chery Aranda Other [facility] Other 07-15-2023 13:00-0500 Body weight 116.58 kg Chery Aranda Other [facility] Other 07-15-2023 13:00-0500 Diastolic blood pressure 74 mm[Hg] Chery Aranda Other [facility] Other 07-15-2023 13:00-0500 Systolic blood pressure 107 mm[Hg] Chery Aranda Other [facility] Other 06-14-2023 13:30-0400 Body height 170.81 cm Chery Aranda Other [facility] Other 06-14-2023 13:30-0400 Body mass index (BMI) [Ratio] 39.42 kg/m2 Chery Aranda Other [facility] Other 06-14-2023 13:30-0400 Body weight 115.03 kg Chery Aranda Other [facility] Other 06-14-2023 13:30-0400 Diastolic blood pressure 72 mm[Hg] Chery Aranda Other [facility] Other 06-14-2023 13:30-0400 Systolic blood pressure 118 mm[Hg] Chery Aranda Other [facility] Other 05-16-2023 13:00-0400 Body height 170.81 cm Chery Aranda Other [facility] Other 05-16-2023 13:00-0400 Body mass index (BMI) [Ratio] 40.1 kg/m2 Chery Aranda Other [facility] Other 05-16-2023 13:00-0400 Body weight 117.03 kg Chery Aranda Other [facility] Other 05-16-2023 13:00-0400 Diastolic blood pressure 67 mm[Hg] Chery Aranda Other [facility] Other 05-16-2023 13:00-0400 Systolic blood pressure 102 mm[Hg] Chery Aranda Other [facility] Other 04-15-2023 13:00-0400 Body height 170.81 cm Chery Aranda Other [facility] Other 04-15-2023 13:00-0400 Body mass index (BMI) [Ratio] 41.35 kg/m2 Chery Aranda Other [facility] Other 04-15-2023 13:00-0400 Body weight 120.66 kg Chery Aranda Other [facility] Other 04-15-2023 13:00-0400 Diastolic blood pressure 71 mm[Hg] Chery Aranda Other [facility] Other 04-15-2023 13:00-0400 Systolic blood pressure 110 mm[Hg] Chery Aranda Other [facility] Other 03-22-2022 02:06-0400 Body weight 117.[address] BRANDI ANN [facility] Comment on above: Performed By: #### HCVPCRR #### [facility] [address] [place] [address] Dr. Carleen Underwood Encounters Encounter Date Encounter Type Care Provider Facility Start: 03-25-2024 End: 03-25-2024 ambulatory FRIEDA MILLS Not Available Start: 03-18-2024 End: 03-18-2024 ambulatory FRIEDA MILLS Not Available Start: 03-04-2024 End: 03-04-2024 ambulatory Jae Marroquin [facility] Work Phone: Start: 03-04-2024 End: 03-04-2024 Departed Referred DO Jae Marroquin Work Phone: [facility] Start: 03-04-2024 Non-patient / Non-visit DO Cor ey Lopez Work Phone: [facility] Work Phone: Start: 02-26-2024 End: 02-26-2024 ambulatory JAE LOPEZ Not Available Start: 02-11-2024 End: 02-11-2024 ambulatory JAE LOPEZ Not Available Start: 01-30-2024 End: 01-30-2024 ambulatory JAE LOPEZ Not Available Start: 01-23-2024 End: 01-23-2024 ambulatory JAE LOPEZ Not Available Start: 01-17-2024 End: 01-19-2024 ambulatory ZAHEER CHRIS [facility] Start: 01-16-2024 End: 01-16-2024 ambulatory FRIEDA MILLS Not Available Start: 01-16-2024 End: 01-16-2024 Evaluation and management of inpatient [facility] Start: 01-13-2024 End: 01-13-2024 ambulatory [facility] Start: 01-12-2024 End: 01-16-2024 Evaluation and management of inpatient JAMESON LOERA [facility] Start: 01-11-2024 End: 01-15-2024 Evaluation and management of inpatient BRANDI LAST [facility] Start: 01-08-2024 End: 01-08-2024 ambulatory FRIEDA MILLS Not Available Start: 12-25-2023 End: 12-25-2023 ambulatory JAE LOPEZ Not Available Start: 12-11-2023 End: 12-11-2023 ambulatory JAE LOPEZ Not Available Start: 11-27-2023 End: 11-27-2023 ambulatory FRIEDA MILLS Not Available Start: 11-13-2023 End: 11-13-2023 ambulatory JAE LOPEZ Not Available Start: 10-17-2023 End: 10-18-2023 ambulatory COLIN BOWLING [facility] Start: 10-16-2023 End: 10-16-2023 ambulatory JAE LOPEZ Not Available Start: 10-04-2023 Chart abstracting Chao Marmolejo MD Work Phone: [facility] Start: 09-18-2023 End: 09-18-2023 ambulatory FRIEDA MILLS Not Available Start: 08-20-2023 End: 08-20-2023 ambulatory JAE MARROQUIN Not Available Start: 07-26-2023 End: 07-26-2023 ambulatory JAE MARROQUIN Not Available Start: 07-15-2023 End: 07-15-2023 ambulatory Chery Aranda Other [facility] Other Start: 07-15-2023 Office outpatient vi sit 10 minutes Chery Aranda [facility] Start: 06-14-2023 End: 06-14-2023 ambulatory Chery Aranda Other [facility] Other Start: 06-14-2023 Office outpatient vi sit 10 minutes Chery Aranda [facility] Start: 05-16-2023 End: 05-16-2023 ambulatory Chery Aranda Other [facility] Other Start: 05-16-2023 Office outpatient vi sit 10 minutes Chery Aranda [facility] Start: 04-15-2023 End: 04-15-2023 ambulatory Chery Aranda Other [facility] Other Start: 04-15-2023 Office outpatient ne w 45 minutes Chery Aranda [facility] Start: 07-31-2022 End: 07-31-[address] JAE MARROQUIN Facility:[facility] Start: 07-27-2022 End: 07-28-2022 Evaluation and management of inpatient DR JAE MARROQUIN Facility:[facility] Start: 07-12-2022 End: 07-12-[address] JAE MARROQUIN Facility:[facility] Start: 07-09-2022 End: 07-09-[address] IVORY GUTIERREZ Facility:[facility] Start: 07-06-2022 End: 07-06-[address] JAE MARROQUIN Facility:[facility] Start: 07-05-2022 End: 07-06-[address] JAE MARROQUIN Facility:[facility] Start: 06-11-2022 End: 06-12-[address] JAE MARROQUIN Facility:[facility] Start: 05-14-2022 End: 05-15-[address] JAE MARROQUIN Facility:[facility] Start: 04-24-2022 End: 04-25-[address] JAE MARROQUIN Facility:[facility] Start: 04-17-2022 End: 04-18-2022 ambulatory NONE LISTED REQUEST Facility:[facility] Start: 04-16-2022 End: 04-16-[address] JAE MARROQUIN Facility:[facility] Start: 03-19-2022 End: 03-20-[address] JAE MARROQUIN Facility:[facility] Start: 03-12-2022 End: 03-13-[address] JAE MARROQUIN Facility:[facility] Start: 02-14-2022 End: 02-15-[address] JAE MARROQUIN Facility:[facility] Start: 01-12-2022 End: 01-13-[address] JAE MARROQUIN Facility:[facility] Start: 12-29-2021 End: 12-30-[address] BRANDI ANN Facility:[facility] Procedures Date Procedure Procedure Detail Performing Clinician Start: 07-26-2023 Antibody screen Chao Powers MD Work Phone: Start: 07-26-2023 Basic metabolic pane l calcium total Jae Galvano DO Work Phone: Start: 07-26-2023 HIV 1&2 [...] 10-22-2023 End: 10-22-2023 Patient encounter procedure [facility] Start: 04-26-2023 Influenza vaccination Influenza Vacc ine [facility] Start: 2011 Screening for malign ant neoplasm of cervix Pap Smear [facility] Start: 2009 DTaP,Tdap and Td Vaccines (1 - Tdap) DTaP,Tdap and Td Vaccines (1 - Tdap) [facility] Start: 2008 Adult BMI Screening Adult BMI Screen ing [facility] Start: 2002 Depression Screening Depression Scre ening [facility] Start: 2002 Tobacco Screening Tobacco Screening [facility] Immunizations Immunization Date Immunization Notes Care Provider Malachi hernández 09-08-2019 influenza virus vaccine, unspecified formulation Chao Ling MD Work Phone: [facility] Payers Date Payer Category Payer Self-pay 2017 Private Health Insurance [employer] A ETNA POS [id number] 2017-Present [phone] [address] [place] [address] [id number] 2014 Private Health Insurance [id number] 1990 Unknown [id number] 2.840.1.687119.3.579.2.5 1990 Unknown [id number] 2.840.1.707692.3.579.2.5 1990 Unknown [id number] 2.840.1.679465.3.579.2.5 1990 Unknown [id number] 2.16840.1.153555.3.579.2.5 1990 Unknown [id number] 2.840.1.592767.3.579.2.5 1990 Unknown [id number] .16840.1.015274.3.579.2.5 93 1990 Unknown [id number] 2.16.840.1.025692.3.579.2.5 93 1990 Unknown [id number] 2.16.840.1.425001.3.579.2.5 93 1990 Unknown [id number] 2.16.840.1.217070.3.579.2.5 93 1990 Unknown [id number] 2.16.840.1.121636.3.579.2.5 93 1990 Unknown [id number] 2.16.840.1.945743.3.579.2.5 93 1990 Unknown [id number] 2.16.840.1.824118.3.579.2.5 93 1990 Unknown [id number] 2.16.840.1.391638.3.579.2.5 93 1990 Unknown [id number] 2.16.840.1.109089.3.579.2.5 93 1990 Unknown [id number] 2.16.840.1.971370.3.579.2.5 93 1990 Unknown [id number] 2.16.840.1.257650.3.579.2.5 93 1990 Unknown [id number] 2.16.840.1.291069.3.579.2.5 93 1990 Unknown [id number] 2.16.840.1.672531.3.579.2.5 93 1990 Unknown [id number] 2.16.840.1.636553.3.579.2.1 286 1990 Unknown [id number] 2.16.840.1.555883.3.579.2.1 286 1990 Unknown [id number] 2.16.840.1.143017.3.579.2.1 286 1990 Unknown [id number] 2.16.840.1.701673.3.579.2.1 286 1990 Unknown [id number] 2.16.840.1.900705.3.579.2.1 286 1990 Unknown [id number] 2.16.840.1.494007.3.579.2.1 286 1990 Unknown [id number] 2.16.840.1.828176.3.579.2.1 259 1990 Unknown [id number] 2.16.840.1.729293.3.579.2.1 259 1990 Unknown [id number] 2.16.840.1.759663.3.579.2.1 259 1990 Unknown [id number] 2.16.840.1.853205.3.579.2.1 259 1990 Unknown [id number] 2.16.840.1.847871.3.579.2.1 259 1990 Unknown [id number] 2.16.840.1.423534.3.579.2.1 259 1990 Unknown [id number] 2.16.840.1.096403.3.579.2.1 259 1990 Unknown [id number] 2.16.840.1.322805.3.579.2.1 259 1990 Unknown [id number] 2.16.840.1.097318.3.579.2.1 259 1990 Unknown [id number] 2.16.840.1.447840.3.579.2.1 259 1990 Unknown [id number] 2.16.840.1.637535.3.579.2.1 259 1990 Unknown [id number] 2.16.840.1.558463.3.579.2.1 259 1990 Unknown [id number] 2.16.840.1.376589.3.579.2.1 259 1990 Unknown [id number] 2.16.840.1.982771.3.579.2.1 259 1990 Unknown [id number] 2.16.840.1.038589.3.579.2.1 259 1990 Unknown [id number] 2.16.840.1.838513.3.579.2.1 259 1959 Private Health Insurance [id number] 1959 Unknown [id number] Unknown [id number] 2.16.840.1.312151.3.579.2.5 93 Unknown [id number] 2.16.840.1.504887.3.579.2.5 31 Social History Date Type Detail Facility Unknown if ever smoked [facility] Other Start: 10-06-2020 End: 10-04-2023 Sex Assigned At [facility] Other Start: 09-11-2019 Tobacco smoking stat [facility] Never smoked tobacco [facility] Start: 09-11-2019 Tobacco use and exposure Smokeless tobacco non-user [facility] Start: 10-04-2023 Alcohol intake Ex-drinker (finding) [facility] Start: 10-06-2020 End: 10-04-2023 History of Social function [facility] Childcare Unknown [facility] Start: 05-30-[address] [facility] Start: 1990 Sex Assigned At Not on file P [facility] Start: 1990 Sex Assigned At Female F [facility] Evaluation note 07-15-2023 Note Date & Type Note Facility 07-15-2023 Evaluation note Encounter Date Diagnosis Assessment Notes Jun, First trimester (ICD-10 - Z34.91) Continued followup w Dr. Marroquin. No further adipex. [facility] Other Evaluation note 06-14-2023 Note Date & [...] index [BMI] 39.0-39.9, adult (ICD-10 - Z68.39) [facility] Other Evaluation note 05-16-2023 Note Date & [...] index [BMI] 40.0-44.9, adult (ICD-10 - Z68.41) [facility] Other Evaluation note 04-15-2023 Note Date & [...] index [BMI] 40.0-44.9, adult (ICD-10 - Z68.41) [facility] Other Evaluation note Note Date & Type Note Facility Evaluation note No assessment information availa [facility] Work Phone: History general Narrative - Reported Note Date & Type Note Facility History general Narrative - Reported Type Surgical History T & A 2009 Surgical History Gallbladder 2012 [facility] Other History general Narrative - Reported Note Date & Type Note Facility History general Narrative - Reported Type Surgical History T & A 2009 Surgical History Gallbladder 2013 Hospitalization History see surgical hx [facility] Other History general Narrative - Reported Note [...] Gallbladder 2013 Hospitalization History see surgical hx [facility] Other Instructions Note Date & Type Note Facility Instructions Not on filedocumented in this en counter [facility] Summary Purpose Family History No Family History Records FoundNo Family History Records FoundNo Family History Records FoundNo Family History Records FoundNo Family History Records FoundNo Family History Records Found Advance Directives No Advanced Directives Records Found Advance Directive Response Recorded Date/ Time Advance Directives No March 04 1:33pm Additional Source Comments INFORMATION SOURCE (unrecogn ized section and content) DATE CREATED AUTHOR 03/11/2020 [facility] DATE CREATED AUTHOR AUTHOR'S ORGANIZ ATION 08/04/2022 [facility] DATE CREATED AUTHOR AUTHOR'S ORGANIZ ATION 01/08/2024 [facility] DATE CREATED AUTHOR AUTHOR'S ORGANIZ ATION 02/12/2024 [facility] DATE CREATED AUTHOR AUTHOR'S ORGANIZ ATION 03/10/2024 [facility] DATE CREATED AUTHOR AUTHOR'S ORGANIZ ATION 03/28/2024 [facility] EPIC REASON FOR VISIT (unrecogniz ed section and content) ESTABLISH CARE1 month Follow up1 month Follow up1 month Follow up Care Teams (unrecognized sec tion and content) Shift Supervisor Relationship Specialty Start Date End Date En 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 [facility] [employer] [facility]. provides no warranty or guarantee of the accuracy or completeness of information in this document.
== END 2024-04-28 20:59 | disposition home or self-care (01) ==
LOC: LAB 20:58
PROVIDERS: PCP Family Medicine; Visit Provider Obstetrics & Gynecology
DX: Z01.419 Encounter for gynecological examination (general) (routine) without abnormal findings (principal)
CPT/HCPCS: 87624; 88175